=== PATIENT | male | born 1950 | race Caucasian/White ===

== ENCOUNTER 2020-10-23 07:14 | Day surgery (SDC) | payer MEDICARE, SELFPAY ==
[2020-10-20 08:26] VITALS: BMI 25.8
[2020-10-23] VITALS (7 sets, daily range): BP systolic 80–147; BP diastolic 48–98; PULSE 60–74; RESP 18; TEMP 36.1–36.6; O2SAT 95–99
--- NOTE | 2020-10-23 08:01 | HMH.ANESCL ---
[facility] Anesthesia Checklist - Patient Identification Patient Identification: Arm Band - Structural Data Admitted From: Home Planned Operative Procedure/s: colonoscopy Consent for Planned Operative Procedure(s) Verified: Yes Verified Documents: Surgical Consent, History and Physical - NPO Status Verified Time NPO: 00:00 - Additional verifications Anesthesia Reactions: No - Airway Assessment C-Spine Mobility Assessed: Yes (mp2) TMJ Mobility Assessed: Yes Dentition: Good Dentition - Neurological Assessment Level of Consciousness: Awake, Alert - Anesthesia Plan Anesthesia Risk discussed: Yes Anesthesia Plan: Verified ASA Class: III Anesthesia Type: MAC [facility] History I have reviewed the patient's past medical history: Yes Medical History: Reports:: Cerebrovascular Accident, Gastroesophageal Reflux Disease(GERD), Hypertension Denies:: Cancer, Diabetes Mellitus Type 1, Diabetes Mellitus Type 2, Internal Pacemaker, MRSA, Seizures *Have you ever received a pneumonia vaccine?: Yes *Have you received a flu vaccine this season?: Yes Other Medical History: Reports: Hypothyroidism, Liver Disease Anesthesia experience/problems:: nac Other Surgeries: Yes: Other. No: Pacemaker Amputation: No Fractures: No - *Social History Smoking Status: Never smoker Alcohol Intake: never Substance Use Type: denies use *Occupational Status:: employed Housing: house Household Members: spouse *Travel in the last 8 weeks: None Family Hx:: No significant family history
--- NOTE | 2020-10-23 08:09 | P.PCN_ITS ---
[facility] Procedure Note Procedure Note:: Colonoscopy Procedure Report: Colonoscopy with cold snare polypectomy Endoscopist: Joe Tidwell II, MD Referring physician: Elder Estrella MD Date of Procedure: October 23, 2020 Equipment: Olympus 190 variable stiffness pediatric colonoscope Sedation: MAC sedation Indication: Mr. Cornejo is a 70-year-old gentleman who is here for follow-up screening/surveillance colonoscopy. The patient did have a colonoscopy approximately 10 years ago (in [place]). He reports no abdominal pain, weight loss, change in his bowel habits or rectal bleeding. He reports no family history of colon cancer. Procedure: Prior to the procedure, a history and physical exam was performed, and patient's medications and allergies were reviewed. The risks, benefits and alternatives of the sedation and procedure were discussed with the patient. All questions were answered and informed consent was obtained. The patient was brought to the procedure room. Patient identification and proposed procedure were verified by the physician and the nurse. The patient was placed in a left lateral decubitus position and the scope was passed under direct vision. Throughout the procedure, the patient's blood pressure, pulse, and oxygen saturations were monitored continuously. The colonoscopy was accomplished without difficulty. The patient tolerated the procedure well. Findings: On digital rectal examination there was normal rectal tone. There were no external hemorrhoids. The prostate was 2-3+, mildly firm more so right lobe over left without nodules. The colonoscope was introduced through the anal canal to the rectum and advanced to the cecum. The ileocecal valve and appendiceal orifice were identified. The scope was advanced a short distance into the ileum which appeared grossly normal. The scope was then withdrawn into the colon. There were 2 colon polyps (cecum x1 (4 mm) and ascending x1 (4 mm)) which were both removed via cold snare polypectomy. The remaining cecum, ascending and transverse colon and mucosa were grossly normal. There were scattered diverticuli throughout the descending and sigmoid colon (LEFT colon). The rectum itself was normal. Upon retroflexion within the rectum there were grade 2 internal hemorrhoids. The preparation was good throughout with Hoyt Preparation Score of 8 out of 9. The cecal time was 12 min. Impression: 1. Colonic polyps x2 2. Mild left-sided diverticulosis 3. Grade 2 internal hemorrhoids Plan: I will follow up the polyp histology. If the polyps are adenomatous, I would consider repeat surveillance colonoscopy again in 7 years. Certainly this will be based upon his good health and desire to continue surveillance. I would encourage bulk fiber supplementation on a maintenance basis.
[2020-10-23 09:37] LABS: Chloride 101 mmol/L (98-107); Potassium 3.8 mmoL/L (3.5-5.1); Sodium 135 mmol/L (136-145)
[2020-10-23 09:39] LABS: Alanine Aminotransferase 32 U/L (12-78); Alkaline Phosphatase 76 U/L (38-126); Aspartate Amino Transferase 37 U/L (17-59); Bilirubin,Total 0.9 mg/dl (0.2-1.3); Blood Urea Nitrogen 7 mg/dl (9-20); Creatinine Clearance Estimated 76 mL/min (50-200); Estimated Glomerular Filt Rate 111 ml/min (>60); GFR (African American) 135 ML/MIN (>60)
[2020-10-23 09:40] LABS: Albumin Level 3.1 g/dl (3.5-5.0); Albumin/Globulin Ratio 1.2 (1.1-1.8); Anion Gap 8.8 mEq/L (5-15); Calcium 8.2 mg/dl (8.4-10.2); Carbon Dioxide 29 mmol/L (22.0-30.0); Globulin 2.5 g/dL (1.3-3.2); Glucose 129 mg/dl (74-100); Iron 121 ug/dL (49-181); Prothrombin Time 12.9 seconds (10.1-12.5); Total Protein,Serum 5.6 g/dl (6.3-8.2)
[2020-10-23 09:41] LABS: Ammonia < 9 umol/L (9-30)
[2020-10-23 09:49] LABS: Total Iron Binding Capacity 306 ug/dL (261-462)
[2020-10-23 10:17] LABS: Ferritin 87.2 ng/ml (17.9-464)
[2020-10-25 00:05] LABS: Actin (Smooth Muscle) Antibody 9 Units (0-19); Mitochondrial (M2) Antibody <20.0 Units (0.0-20.0)
[2020-10-25 17:23] LABS: Anti-Centromere B Antibodies >8.0 AI (0.0-0.9); Anti-DNA (DS) Ab Qn 5 IU/mL (0-9); Anti-Jo-1 <0.2 AI (0.0-0.9); Anti-Smith Antibody <0.2 AI (0.0-0.9); Antiscleroderma-70 Antibodies <0.2 AI (0.0-0.9); RNP Antibodies <0.2 AI (0.0-0.9); Sjogren's Anti-SS-A <0.2 AI (0.0-0.9); Sjogren's Anti-SS-B <0.2 AI (0.0-0.9)
[2020-10-26 14:15] LABS: Angiotensin Converting Enzyme 62 U/L (14-82)
[2020-10-26 15:45] LABS: Antichromatin Antibodies <0.2 AI (0.0-0.9)
[2020-10-26 17:09] LABS: AFP, Tumor Marker 2.7 ng/mL (0.0-8.3)
[2020-10-27 03:43] LABS: ALT (SGPT) P5P 29 IU/L (0-55); AST (SGOT) P5P 30 IU/L (0-40); Alpha 2-Macroglobulins, Qn 267 mg/dL (110-276); Apolipoprotein A-1 107 mg/dL (101-178); Bilirubin, Total 0.6 mg/dL (0.0-1.2); Cholesterol, Total 147 mg/dL (100-199); Fibrosis Score 0.89 (0.00-0.21); GGT 59 IU/L (0-65); Glucose 131 mg/dL (65-99); Haptoglobin 15 mg/dL (34-355); NASH Score 0.25 (0.25); Steatosis Score 0.53 (0.00-0.30); Triglycerides 87 mg/dL (0-149)
[2020-10-27 05:15] LABS: Fibrosis Score 0.89 (0.00-0.21); Necroinflammat Activity Grade A0-A1 (.); Necroinflammat Activity Score 0.28 (0.00-0.17)
== END 2020-10-23 09:38 | disposition home or self-care (01) ==
PROVIDERS: PCP Family Medicine; Visit Provider Internal Medicine Gastroenterology
PROC: 0DJD8ZZ Inspection of Lower Intestinal Tract, Via Natural or Artificial Opening Endoscopic (ICD-10-PCS; CPT 45378; principal; 2020-10-23 08:00)
DX: Z12.11 Encounter for screening for malignant neoplasm of colon (principal); K63.5 Polyp of colon; K57.30 Diverticulosis of large intestine without perforation or abscess without bleeding; K64.1 Second degree hemorrhoids; I10 Essential (primary) hypertension; K21.9 Gastro-esophageal reflux disease without esophagitis; Z86.73 Personal history of transient ischemic attack (TIA), and cerebral infarction without residual deficits; Z79.82 Long term (current) use of aspirin; Z79.899 Other long term (current) drug therapy
CPT/HCPCS: 45385; 36415; 80053; 81596; 82105; 82140; 82164; 82728; 83540; 83550; 85610; 86225; 86235; 86255; 86256; 88305

== ENCOUNTER → 2021-02-01 16:40 | Outpatient (CLI) | payer MEDICARE, SELFPAY | PROVIDERS: Visit Provider Nurse Practitioner | DX: U07.1 COVID-19 (principal) | CPT/HCPCS: C9803; U0003; U0005 ==

== ENCOUNTER → 2021-02-02 19:42 | Outpatient (CLI) | payer MEDICARE, SELFPAY | PROVIDERS: Visit Provider Nurse Practitioner Family | DX: Z20.822 Contact with and (suspected) exposure to COVID-19 (principal) | CPT/HCPCS: C9803; U0003; U0005 ==

== ENCOUNTER 2023-01-06 17:57 | Emergency (ER) | payer MEDICARE, SELFPAY ==
[2023-01-06] VITALS (8 sets, daily range): BP systolic 142–161; BP diastolic 88–100; PULSE 65–82; RESP 18; TEMP 36.7; O2SAT 97–100; BMI 19.2
--- OUTSIDE RECORDS SUMMARY | 2023-01-06 18:19 | XMS_ITS | Continuity of Care Document ---
Author Name Unknown Organization [facility] Address [address] [place] [address] Phone Care Team Providers Care Mirror Painter Name Role Phone No Information Unavailable Unavailable Advance Directives Directive Yes / No Effective Date File Name No Information Encounters Encounter Description Practice Location Reason(s) For Visit Diagnoses Date Provider Providers Copied on Encounter [facility], [address] [place] [address], [id number], [place] tel:[phone] No Information 0 [phone] No Information Family History Family Member Type Diagnosis Age At Onset No Information Payers Payer name Insurance type Covered constitution party ID Authoriza tion(s) No Information Social History Type Description Quantity Date Captured Comments Sex Male Smoking Status No Information Chief Complaint And Reason For Visit No Information Reason For Referral Reason For Referral No Information History Of Present Illness Encounter Date Complaint History Of Prese nt Illness No Information Functional Status Date Functional Assessmen t No Information Instructions Date Instruc
--- OUTSIDE RECORDS SUMMARY | 2023-01-06 18:20 | XMS_ITS | Continuity of Care Document ---
Author Name Unknown Address [address] [place], [place] [id number] Organization [facility] Phone Care Team Providers Care Reinforcing Steel Placer Name Role Phone MIGUEL GONZALES Unavailable MIGUEL GONZALES Primary Attending VERONICA TORRES III Primary Care MIGUEL GONZALES Admitting RESULTS Patient: ALEJO LARSON Date of : 1950 1 LABORATORY RESULTS ORDER 200: CBC AUTO W DIFF ( LOINC: 35113-5) ORDER DATE: October 31, 2022 1:57:00 PM UTC Specimen Source: Whole Blood PERFORMING LAB: [address] [id number] Result Comment: Final Result Date: October 31, 2022 2:06:00 PM [place] (TECH: [employer]) LOINC TEST FLAG RESULT REFERENCE RANGE UPDA LAURIE BY 6690-2 Leukocytes [#/volume] in Blood by Automated count N 6.4 10^3/uL 4.5 10^3/uL - 11.5 10^3/uL October 31, 2022 2:06:00 PM UTC (TECH: [employer]) 789-8 Erythrocytes [#/volume] in Blood by Automated count L 3.20 10^6/uL 4.25 10^6/uL - 5.57 10^6/uL October 31, 2022 2:06:00 PM UTC (TECH: [employer]) 498-7 Hemoglobin [Mass/volume] in Blood L 10.2 g/dL 13.5 g/dL - 17.2 g/dL October 31, 2022 2:06:00 PM UTC (TECH: [employer]) 58516-8 Hematocrit [Volume Fraction] of Blood L 31.0 % 42.0 % - 52.0 % October 31, 2022 2:06:00 PM [facility] (TECH: [facility]) 787-2 Eryt
--- OUTSIDE RECORDS SUMMARY | 2023-01-06 18:20 | XMS_ITS | Continuity of Care Document ---
Author Name Unknown Address [address] [place] [id number] Organization [facility] Phone Care Team Providers Care Clinical Research Physician Name Role Phone UNDEFINED, PROVIDER Admitting Unavailable VERONICA TORRES III Primary Care UNDEFINED, PROVIDER Unavailable Unavailable UNDEFINED, PROVIDER Primary Attending Unavailabl e RESULTS Patient: ALEJO LARSON Date of : 1950 1 LABORATORY RESULTS ORDER 200: CBC AUTO W DIFF ( LOINC: 44317-5) ORDER DATE: October 31, 2022 1:57:00 PM UTC Specimen Source: Whole Blood PERFORMING LAB: [address] [id number] Result Comment: Final Result Date: October 31, 2022 2:06:00 PM UTC (TECH: [facility]) LOINC TEST FLAG RESULT REFERENCE RANGE UPDA LAURIE BY 6690-2 Leukocytes [#/volume] in Blood by Automated count N 6.4 10^3/uL 4.5 10^3/uL - 11.5 10^3/uL October 31, 2022 2:06:00 PM UTC (TECH: [facility]) 789-8 Erythrocytes [#/volume] in Blood by Automated count L 3.20 10^6/uL 4.25 10^6/uL - 5.57 10^6/uL October 31, 2022 2:06:00 PM UTC (TECH: [facility]) 718-7 Hemoglobin [Mass/volume] in Blood L 10.2 g/dL 13.5 g/dL - 17.2 g/dL October 31, 2022 2:06:00 PM UTC (TECH: [facility]) 56499-2 Hematocrit [Volume Fraction] of Blood L 31.0 % 42.0 % - 52.0 % October 31, 2022 2:06:00 PM UTC (TECH: [facility]) 787-2 Erythrocyte mean corpuscular volume [Entitic volume] by Automated count H
--- OUTSIDE RECORDS SUMMARY | 2023-01-06 18:20 | XMS_ITS | Continuity of Care Document ---
Author Name Unknown Address [address] [place], [place] [id number] [facility] Care Team Providers Care Mine Analyst Name Role Phone UNDEFINED, PROVIDER Admitting Unavailable VERONICA TORRES III Primary Care UNDEFINED, PROVIDER Unavailable Unavailable UNDEFINED, PROVIDER Primary Attending Unavailabl e TREATMENT PLAN DISCHARGE MEDICATIONS Status RXNORM Medication Dose Route Frequency Dates Comments U pdated By Patient discharge medication information is not available. PATIENT OPEN ORDERS Code System Description Frequency Occurrences Priority [place] [address] [facility] Chest X-ray PA and lateral ONE TIME 0 Routine November 14, 2022 1:41:00 PM [facility] BRIAN Askew III [id number] on November 14, 2022 2:17:00 PM [facility] SCHEDULED PROCEDURES Code System Description Status Scheduled Date Upd ated By Patient scheduled procedure information is not available. MEDICATIONS HOME MEDICATIONS Status RXNORM Medication Dose Route Frequency Dates Comments R eported By Updated By Drug Treatment Unknown DISCHARGE MEDICATIONS Status RXNORM Medication Dose Route Frequency Dates Comments Physic arnav Updated By No Discharge Medication Info rmation Available INPATIENT MEDICATIONS Status RXNORM Medication Dose Route Frequency Rate Quantity Dates Comments Physician
--- OUTSIDE RECORDS SUMMARY | 2023-01-06 18:20 | XMS_ITS | Continuity of Care Document ---
Author Name Unknown Address [address] [place], [place] [id number] Organization [facility] Phone Care Team Providers Care Topstitcher Zigzag Name Role Phone MIGUEL GONZALES Primary Attending [phone] VERONICA TORRES III Primary Care MIGUEL GONZALES Admitting MIGUEL GONZALES Unavailable RESULTS Patient: ALEJO LARSON Date of : 1950 1 LABORATORY RESULTS ORDER 200: CBC AUTO W DIFF ( LOINC: 82248-0) ORDER DATE: December 05, 2022 2:08:00 PM UTC Specimen Source: Whole Blood PERFORMING LAB: [address] [id number] Result Comment: Final Result Date: December 05, 2022 3:28:00 PM UTC (TECH: [facility]) LOINC TEST FLAG RESULT REFERENCE RANGE UPDA LAURIE BY 6690-2 Leukocytes [#/volume] in Blood by Automated count N 8.4 10^3/uL 4.5 10^3/uL - 11.5 10^3/uL December 05, 2022 3:28:00 PM UTC (TECH: [facility]) 789-8 Erythrocytes [#/volume] in Blood by Automated count L 3.51 10^6/uL 4.25 10^6/uL - 5.57 10^6/uL December 05, 2022 3:28:00 PM UTC (TECH: [facility]) 768-7 Hemoglobin [Mass/volume] in Blood L 10.9 g/dL 13.5 g/dL - 17.2 g/dL December 05, 2022 3:28:00 PM UTC (TECH: [facility]) 30642-8 Hematocrit [Volume Fraction] of Blood L 33.3 % 42.0 % - 52.0 % December 05, 2022 3:28:00 PM [facility] (TECH: [facility] 787-2 Eryt
--- OUTSIDE RECORDS SUMMARY | 2023-01-06 18:20 | XMS_ITS | Continuity of Care Document ---
Author Name Unknown Address [address] [place], [place] [id number] Organization [facility] Phone Care Team Providers Care Pharmacy Helper Name Role Phone UNDEFINED, PROVIDER Admitting Unavailable VERONICA TORRES III Primary Care UNDEFINED, PROVIDER Unavailable Unavailable UNDEFINED, PROVIDER Primary Attending Unavailabl e RESULTS Patient: ALEJO LARSON Date of : 1950 1 LABORATORY RESULTS Information is not available LABORATORY NARRATIVE RESULTS Information is not available RADIOLOGY RESULTS ORDER 100: CHEST PA AND LAT (LOINC: 19215-3) ORDER DATE: November 14, 2022 1:41:[address] [facility] PATHOLOGY NARRATIVE RESULTS Information is not available MICROBIOLOGY RESULTS No Micro Labs/Results Exist for Patient BLOOD ADMIN RESULTS Information is not available MEDICATIONS HOME MEDICATIONS Status RXNORM Medication Dose Route Frequency Dates Comments R eported By Updated By Drug Treatment Unknown DISCHARGE MEDICATIONS Status RXNORM Medication Dose Route Frequency Dates Comments Physic arnav Updated By No Discharge Medication Info rmation Available INPATI
--- OUTSIDE RECORDS SUMMARY | 2023-01-06 18:20 | XMS_ITS | Continuity of Care Document ---
Author Name Unknown Address [address] [place], [place] [id number] Organization [facility] Phone Care Team Providers Care Supervisor Heat Treating Name Role Phone MIGUEL GONZALES Primary Attending [phone] VERONICA TORRES III Primary Care MIGUEL GONZALES Admitting MIGUEL GONZALES Unavailable RESULTS Patient: ALEJO LARSON Date of : 1950 1 LABORATORY RESULTS ORDER 200: CBC AUTO W DIFF ( LOINC: 30165-7) ORDER DATE: December 05, 2022 2:08:00 PM UTC Specimen Source: Whole Blood PERFORMING LAB: [address] [id number] Result Comment: Final Result Date: December 05, [...] 05, 2022 3:28:00 PM UTC (TECH: [facility]) 948-7 Hemoglobin [Mass/volume] in Blood L 10.9 g/dL 13.5 g/dL - 17.2 g/dL December 05, 2022 3:28:00 PM UTC (TECH: [facility]) 15789-8 Hematocrit [Volume Fraction] of Blood L 33.3 % 42.0 % - 52.0 % December 05, 2022 3:28:00 PM [facility] (TECH: [facility] 787-2 Eryt
--- OUTSIDE RECORDS SUMMARY | 2023-01-06 18:21 | XMS_ITS | Continuity of Care Document ---
Author Name Unknown Address [address] [place], [place] [id number] Organization [facility] Phone Care Team Providers Care Public Health Policy Analyst Name Role Phone MIGUEL GONZALES Unavailable MIGUEL GONZALES Primary Attending VERONICA TORRES III Primary Care MIGUEL GONZALES Admitting RESULTS Patient: ALEJO LARSON Date of : 1950 1 LABORATORY RESULTS ORDER 200: CBC AUTO W DIFF ( LOINC: 66985-3) ORDER DATE: October 31, 2022 1:57:00 PM UTC Specimen Source: Whole Blood PERFORMING LAB: [address] [id number] Result Comment: Final Result Date: October 31, 2022 2:06:00 PM [place] (TECH: [employer]) LOINC TEST FLAG RESULT REFERENCE RANGE UPDA LAURIE BY 6690-2 Leukocytes [#/volume] in Blood by Automated count N 6.4 10^3/uL 4.5 10^3/uL - 11.5 10^3/uL October 31, 2022 2:06:00 PM UTC (TECH: [employer]) 789-8 Erythrocytes [#/volume] in Blood by Automated count L 3.20 10^6/uL 4.25 10^6/uL - 5.57 10^6/uL October 31, 2022 2:06:00 PM UTC (TECH: [employer]) 258-7 Hemoglobin [Mass/volume] in Blood L 10.2 g/dL 13.5 g/dL - 17.2 g/dL October 31, 2022 2:06:00 PM UTC (TECH: [employer]) 09098-2 Hematocrit [Volume Fraction] of Blood L 31.0 % 42.0 % - 52.0 % October 31, 2022 2:06:00 PM [facility] (TECH: [facility]) 787-2 Eryt
[2023-01-06 18:24] LABS: Basophils % 0.4 % (0.1-2.0); Eosinophils # 0.9 K/mm3 (0.0-0.4); Eosinophils % 12.4 % (0.1-12.0); Lymphocytes # 2.2 K/mm3 (0.7-4.5); Lymphocytes % 30.1 % (10-50); Mean Corpuscular HGB Conc 33.4 g/dL (31.8-35.4); Mean Corpuscular Hemoglobin 32.3 pg (27.0-31.2); Mean Corpuscular Volume 96.6 fl (80-94); Mean Platelet Volume 8.2 fl (7.4-10.4); Monocytes # 0.6 K/mm3 (0.1-1.0); Monocytes % 7.8 % (1.7-9.3); Neutrophils # 3.6 K/mm3 (1.8-7.8); Neutrophils % 49.3 % (37.0-80.0); Platelet Count 324 K/mm3 (142-424); Red Blood Count 3.42 M/mm3 (4.60-6.20); Red Cell Distribution Width 14.4 % (11.5-17.5); White Blood Count 7.4 K/mm3 (4.8-10.8)
--- NOTE | 2023-01-06 18:28 | HMH.EDGENADL ---
Discharge Plan Disposition Patient Disposition: Home, Self-Care Prescriptions Prescriptions: New Lokelma 10 gram powder in packet 10 g PO DAILY Qty: 30 0RF No Action levothyroxine 137 MCG tablet 137 mcg PO DAILY prednisone 5 MG tablet 5 mg PO DAILY clopidogrel 75 MG tablet 75 mg PO DAILY pantoprazole 40 MG tablet,delayed release (DR/EC) 40 mg PO DAILY aspirin 81 MG tablet,chewable 81 mg PO DAILY hydrochlorothiazide 25 MG tablet 25 mg PO DAILY losartan 100 MG tablet 100 mg PO DAILY cholestyramine (with sugar) 378 GM powder 378 gm PO DAILY Referrals Follow up/Referrals: Leo Estrella MD [Primary Care Provider] - See instructions Activity Restrictions/Add. Instructions Additional Instructions/Restrictions: Take 10 g of Lokelma daily. Follow-up with your transplant team. Call your family doctor to establish care for this visit to the emergency department and schedule follow-up within 48 hours to ensure improvement. If you have any worsening of your condition or any other concerning signs or symptoms, return to the emergency department or your primary care doctor for further evaluation. Clinical Impressions Clinical Impression: Acute hyperkalemia Discharge ED Provider: Eric Streeter General Adult HPI General Chief complaint: Recheck/Abnormal Lab/Rx Stated complaint: sent by [place]-potassium over 6 Time Seen by Provider: 01/06/23 18:03 Mode of Arrival: Wheelchair Source of Information: Patient Limitations: No Limitations Description of Symptoms (Recalled from ER Triage Doc. by RN): pt had a liver transplant in June with [facility], had routine blood work done yesterday and they called him today to let him know his potassium was elevated and to go to local hospital to have labs recheck. History of Present Illness HPI narrative: 72-year-old male history of recent liver transplant presenting with abnormal labs. Patient states that he got labs drawn 1 day ago. Was called and told that 1 number was 5.9 a couple days ago, over 6 today. Was told to come to the nearest ER for insulin and other medications to lower it. Patient has no symptoms, fevers, chills, yellowing of the skin or eyes, nausea or vomiting, chest pain or shortness of breath, dysuria hematuria, diarrhea constipation, and has been taking all his meds as prescribed. Related Data Home Medications Medication Instructions Recorded Confirmed aspirin 81 mg chewable tablet 81 mg PO DAILY Blood thinner 10/20/20 10/23/20 cholestyramine (with sugar) 4 gram 378 gm PO DAILY liver 10/20/20 10/23/20 oral powder clopidogrel 75 mg tablet 75 mg PO DAILY Blood thinner 10/20/20 10/23/20 hydrochlorothiazide 25 mg tablet 25 mg PO DAILY bp 10/20/20 10/23/20 levothyroxine 137 mcg tablet 137 mcg PO DAILY thyroid 10/20/20 10/23/20 losartan 100 mg tablet 100 mg PO DAILY bp 10/20/20 10/23/20 pantoprazole 40 mg tablet,delayed 40 mg PO DAILY GERD 10/20/20 10/23/20 release prednisone 5 mg tablet 5 mg PO DAILY autoimmune 10/20/20 10/23/20 Previous Rx's Medication Instructions Recorded sodium zirconium cyclosilicate 10 10 g PO DAILY #30 ea 01/06/23 gram oral powder packet (Lokelma) Allergies Allergy/AdvReac Type Severity Reaction Status Date / Time No Known Allergies Allergy Verified 02/02/21 17:48 [facility] Disclaimer: The information contained in this section may have been updated after the patient was seen, as this information can be updated by other users. Social History Smoking Status: Never smoker alcohol intake: never substance use type: denies use current occupational status: employed Travel in the last 8 weeks: None household members: spouse housing: house current occupational exposures/hazards: No caffeine: Yes ROS Obtained: Yes All systems reviewed & no additional complaints except as documented Physical Exam General General appearance: alert
[2023-01-06 18:34] LABS: INR 1.01 (0.9-1.1); Prothrombin Time 10.9 seconds (10.1-12.5)
[2023-01-06 18:41] LABS: Alanine Aminotransferase 209 U/L (12-78); Albumin Level 4.2 g/dl (3.5-5.0); Albumin/Globulin Ratio 1.4 (1.1-1.8); Alkaline Phosphatase 587 U/L (38-126); Anion Gap 15.2 mEq/L (5-15); Aspartate Amino Transferase 285 U/L (17-59); Bilirubin,Total 1.2 mg/dl (0.2-1.3); Blood Urea Nitrogen 32 mg/dl (9-20); Calcium 9.5 mg/dl (8.4-10.2); Carbon Dioxide 22 mmol/L (22.0-30.0); Chloride 98 mmol/L (98-107); Creatinine Clearance Estimated 50 mL/min (50-200); Estimated Glomerular Filt Rate 66 ml/min (>60); GFR (African American) 79 ML/MIN (>60); Globulin 3.1 g/dL (1.3-3.2); Glucose 99 mg/dl (74-100); Sodium 129 mmol/L (136-145); Total Protein,Serum 7.3 g/dl (6.3-8.2)
[2023-01-06 18:45] LABS: Potassium 6.2 mmoL/L (3.5-5.1)
--- NOTE | 2023-01-06 18:45 | PC.NURSE ---
lab called with critical result of potassium 6.2, ER made aware, pt on the monitor and storage bin tender
--- NOTE | 2023-01-06 19:09 | PC.NURSE ---
Rounded on patient, no concerns at this time.
[2023-01-06 20:46] LABS: Potassium 5.5 mmoL/L (3.5-5.1)
--- NOTE | 2023-01-06 21:42 | PC.NURSE ---
rechecked BS. BS now 90.
[2023-01-06 21:49] LABS: POC Glucose,Bedside 60 (70-110)
[2023-01-06 21:49] LABS: POC Glucose,Bedside 70 (70-110)
[2023-01-06 21:49] LABS: POC Glucose,Bedside 90 (70-110)
== END 2023-01-06 22:01 | disposition home or self-care (01) ==
PROVIDERS: Emergency Provider Emergency Medicine; PCP Family Medicine
DX: E87.5 Hyperkalemia (principal); E87.1 Hypo-osmolality and hyponatremia; Z94.4 Liver transplant status
CPT/HCPCS: 36415; 80053; 82962; 84132; 85025; 85610; 96374; 96375; 99284

== ENCOUNTER 2023-01-30 09:51 | Emergency (ER) | payer MEDICARE, SELFPAY ==
[2023-01-30] VITALS (16 sets, daily range): BP systolic 96–159; BP diastolic 54–96; PULSE 70–85; RESP 16–20; TEMP 36.7; O2SAT 92–99
--- OUTSIDE RECORDS SUMMARY | 2023-01-30 09:55 | XMS_ITS | Continuity of Care Document ---
Author Name Unknown Organization [facility] Address [address] [place] [address] Phone Care Team Providers Care Quarry Supervisor Open Pit Name Role Phone No Information Unavailable Unavailable Advance Directives Directive Yes / No Effective Date File Name No Information Encounters Encounter Description Practice Location Reason(s) For Visit Diagnoses Date Provider Providers Copied on Encounter [facility], [address] [place] [address], [id number], [place] tel:[phone] No Information 0 [id number] No Information Family History Family Member Type Diagnosis Age At Onset No Information Payers Payer name Insurance type Covered democrat ID Authoriza tion(s) No Information Social History Type Description Quantity Date Captured Comments Sex Male Smoking Status No Information Chief Complaint And Reason For Visit No Information Reason For Referral Reason For Referral No Information History Of Present Illness Encounter Date Complaint History Of Prese nt Illness No Information Functional Status Date Functional Assessmen t No Information Instructions Date Instru
--- NOTE | 2023-01-30 09:58 | XR_ITS ---
FINAL REPORT CLINICAL HISTORY: fall, L shoulder pain FINDINGS: LEFT SHOULDER 3 views of the left shoulder were obtained. There is no acute fracture or dislocation. Visualized joint spaces are normally aligned. There are mild hypertrophic changes of the AC joint. Soft tissues are unremarkable. IMPRESSION: No acute bony abnormality. Reviewed, Interpreted and Dictated by Angel Bailey MD Transcribed by Aniya Ponce Authenticated and [facility]
--- NOTE | 2023-01-30 09:58 | XR_ITS ---
FINAL REPORT CLINICAL HISTORY: fall, L sera pain FINDINGS: LEFT FEMUR AP and lateral views of the left femur were obtained. There is a subtle, nondisplaced subcapital fracture. There is no dislocation. Soft tissue is unremarkable. IMPRESSION: Subtle, nondisplaced subcapital fracture. Reviewed, Interpreted and Dictated by Angel Bailey MD Transcribed by Aniya Ponce Authenticated and [facility]
--- NOTE | 2023-01-30 09:58 | XR_ITS ---
FINAL REPORT CLINICAL HISTORY: fall, L shoulder pain FINDINGS: LEFT HUMERUS 2 views of the left humerus were obtained. There is no acute fracture or dislocation. Visualized joint spaces are normally aligned. Soft tissues are unremarkable. IMPRESSION: No acute bony abnormality. Reviewed, Interpreted and Dictated by Angel Bailey MD Transcribed by Aniya Ponce Authenticated and [facility]
--- NOTE | 2023-01-30 09:58 | XR_ITS ---
FINAL REPORT CLINICAL HISTORY: fall, L sera pain FINDINGS: LEFT HIP AP and lateral views of the left hip were obtained. There is a subtle, nondisplaced subcapital fracture. There is no dislocation. Soft tissue is unremarkable. IMPRESSION: Subtle, nondisplaced subcapital fracture. Reviewed, Interpreted and Dictated by Angel Bailey MD Transcribed by Aniya Ponce Authenticated and [facility]
--- NOTE | 2023-01-30 10:21 | PC.NURSE ---
rad at for portable xrays
--- NOTE | 2023-01-30 10:23 | HMH.EDGENADL ---
Discharge Plan Disposition Patient Disposition: Xfer Short-Term Hosp Prescriptions Prescriptions: No Action levothyroxine 137 MCG tablet 137 mcg PO DAILY prednisone 5 MG tablet 5 mg PO DAILY clopidogrel 75 MG tablet 75 mg PO DAILY pantoprazole 40 MG tablet,delayed release (DR/EC) 40 mg PO DAILY aspirin 81 MG tablet,chewable 81 mg PO DAILY hydrochlorothiazide 25 MG tablet 25 mg PO DAILY losartan 100 MG tablet 100 mg PO DAILY cholestyramine (with sugar) 378 GM powder 378 gm PO DAILY Lokelma 10 gram powder in packet 10 g PO DAILY Qty: 30 0RF Referrals Follow up/Referrals: Leo Estrella MD [Primary Care Provider] - See instructions Clinical Impressions Clinical Impression: Closed left femoral fracture, Fall Discharge ED Provider: Eric Streeter General Adult HPI General Chief complaint: Fall Stated complaint: fall Time Seen by Provider: 01/30/23 09:58 Mode of Arrival: EMS Source of Information: Patient Limitations: No Limitations Description of Symptoms (Recalled from ER Triage Doc. by RN): Patient states he was trying to get his weight when he fell backwards onto his carpeted living room floor landing on his left hip and left shoulder. Patient does complain of left hip and shoulder pain at a 2 out of 10 on the pain scale. Denies LOC. History of Present Illness HPI narrative: 72-year-old male with history of recent liver transplant following with [facility] presenting with fall. Patient states that he was weighing himself today because he feels as if he has been bloated, distended, holding onto fluid. 6 pound weight gain in 3 days. Called [facility], recommended they follow his weights and because he is been gaining weight, he came to the emergency department for further evaluation, however while weighing himself, he tripped on the scale, landed on his left shoulder and hip, and is having pain in his groin. Able to bear weight with significant pain, but states he has pain with this leg at baseline. Did not hit his head, no other trauma sustained. Related Data Home Medications Medication Instructions Recorded Confirmed aspirin 81 mg chewable tablet 81 mg PO DAILY Blood thinner 10/20/20 10/23/20 cholestyramine (with sugar) 4 gram 378 gm PO DAILY liver 10/20/20 10/23/20 oral powder clopidogrel 75 mg tablet 75 mg PO DAILY Blood thinner 10/20/20 10/23/20 hydrochlorothiazide 25 mg tablet 25 mg PO DAILY bp 10/20/20 10/23/20 levothyroxine 137 mcg tablet 137 mcg PO DAILY thyroid 10/20/20 10/23/20 losartan 100 mg tablet 100 mg PO DAILY bp 10/20/20 10/23/20 pantoprazole 40 mg tablet,delayed 40 mg PO DAILY GERD 10/20/20 10/23/20 release prednisone 5 mg tablet 5 mg PO DAILY autoimmune 10/20/20 10/23/20 Previous Rx's Medication Instructions Recorded sodium zirconium cyclosilicate 10 10 g PO DAILY #30 ea 01/06/23 gram oral powder packet (Lokelma) Allergies Allergy/AdvReac Type Severity Reaction Status Date / Time No Known Allergies Allergy Verified 02/02/21 17:48 [facility] Disclaimer: The information contained in this section may have been updated after the patient was seen, as this information can be updated by other users. Social History Smoking Status: Never smoker alcohol intake: never substance use type: denies use current occupational status: employed Travel in the last 8 weeks: None household members: spouse housing: house current occupational exposures/hazards: No caffeine: Yes ROS Obtained: Yes All systems reviewed & no additional complaints except as documented Physical Exam General General appearance: alert and in no apparent distress Head Head exam: atraumatic Eye Eye exam: Absent jaundice Respiratory Respiratory exam: Present normal lung sounds bilaterally; Absent respiratory distress Cardiovascular Cardiovascular exam: Present regular rate and normal rhyt
[2023-01-30 11:03] LABS: Basophils % 0.3 % (0.1-2.0); Eosinophils # 0.3 K/mm3 (0.0-0.4); Hematocrit 30.9 % (42.0-52.0); Lymphocytes # 1.7 K/mm3 (0.7-4.5); Lymphocytes % 25.3 % (10-50); Mean Corpuscular HGB Conc 32.5 g/dL (31.8-35.4); Mean Corpuscular Hemoglobin 30.7 pg (27.0-31.2); Mean Corpuscular Volume 94.6 fl (80-94); Mean Platelet Volume 8.7 fl (7.4-10.4); Monocytes # 0.5 K/mm3 (0.1-1.0); Monocytes % 6.9 % (1.7-9.3); Neutrophils # 4.4 K/mm3 (1.8-7.8); Neutrophils % 63.5 % (37.0-80.0); Platelet Count 299 K/mm3 (142-424); Red Blood Count 3.27 M/mm3 (4.60-6.20); White Blood Count 6.9 K/mm3 (4.8-10.8)
[2023-01-30 11:09] LABS: Chloride 101 mmol/L (98-107); Sodium 135 mmol/L (136-145)
[2023-01-30 11:10] LABS: Potassium 3.3 mmoL/L (3.5-5.1)
[2023-01-30 11:12] LABS: Alanine Aminotransferase 22 U/L (12-78); Albumin Level 3.6 g/dl (3.5-5.0); Alkaline Phosphatase 205 U/L (38-126); Aspartate Amino Transferase 31 U/L (17-59); Bilirubin,Total 0.7 mg/dl (0.2-1.3); Blood Urea Nitrogen 19 mg/dl (9-20); Creatinine Clearance Estimated 57 mL/min (50-200); Estimated Glomerular Filt Rate 73 ml/min (>60); GFR (African American) 89 ML/MIN (>60)
[2023-01-30 11:13] LABS: Albumin/Globulin Ratio 1.3 (1.1-1.8); Anion Gap 8.3 mEq/L (5-15); Calcium 8.4 mg/dl (8.4-10.2); Carbon Dioxide 29 mmol/L (22.0-30.0); Globulin 2.7 g/dL (1.3-3.2); Glucose 108 mg/dl (74-100); Total Protein,Serum 6.3 g/dl (6.3-8.2)
[2023-01-30 11:17] LABS: Prothrombin Time 11.8 seconds (10.1-12.5)
--- NOTE | 2023-01-30 11:59 | PC.NURSE ---
paged Dr Sood
--- NOTE | 2023-01-30 12:02 | PC.NURSE ---
Dr Sood called and is speaking with Dr Streeter now about this pt.
--- NOTE | 2023-01-30 12:43 | PC.NURSE ---
Dr Streeter speaking with MD
--- NOTE | 2023-01-30 13:21 | PC.NURSE ---
per dr. de la torre- waiting on transplant team at to call back prior to acceptance.
--- NOTE | 2023-01-30 13:42 | PC.NURSE ---
Dr Streeter speaking with [facility]
--- NOTE | 2023-01-30 13:48 | PC.NURSE ---
pt accepted to per will call back with bed assignment
--- NOTE | 2023-01-30 14:13 | PC.NURSE ---
[facility] called with Unit and bed assignment. Unit [id number] and Bed #[id number] Number to call [phone] Adelita also requested a call to transfer center with ETA for Patient. [phone]
--- NOTE | 2023-01-30 15:22 | PC.NURSE ---
Report called to Itzel at .
--- NOTE | 2023-01-30 15:37 | PC.NURSE ---
called [facility] for transport spoke to Donal Robles
== END 2023-01-30 17:50 | disposition short-term general hospital (02) ==
PROVIDERS: Emergency Provider Emergency Medicine; PCP Family Medicine
DX: S72.045A Nondisplaced fracture of base of neck of left femur, initial encounter for closed fracture (principal); Z94.4 Liver transplant status; W18.30XA Fall on same level, unspecified, initial encounter
CPT/HCPCS: 73030; 73060; 73502; 73552; 80053; 85025; 85610; 96374; 96375; 96376; 99285

== ENCOUNTER 2023-03-15 19:49 | Emergency (ER) | payer MEDICARE, SELFPAY ==
[2023-03-15 19:50] VITALS: BP 138/84; PULSE 101; RESP 18; TEMP 37.4; O2SAT 97; BMI 18.4
--- OUTSIDE RECORDS SUMMARY | 2023-03-15 20:00 | XMS_ITS | Continuity of Care Document ---
Author Name Unknown Organization [facility] Address [address] [place] [address] Phone Care Team Providers Care Publicity Director Name Role Phone No Information Unavailable Unavailable Advance Directives Directive Yes / No Effective Date File Name No Information Encounters Encounter Description Practice Location Reason(s) For Visit Diagnoses Date Provider Providers Copied on Encounter [facility], [address] [place] [address], [id number], [place] tel:[phone] No Information 0 3200 9 No Information Family History Family Member Type Diagnosis Age At Onset No Information Payers Payer name Insurance type Covered libertarian ID Authoriza tion(s) No Information Social History Type Description Quantity Date Captured Comments Sex Male Smoking Status No Information Chief Complaint And Reason For Visit No Information Reason For Referral Reason For Referral No Information History Of Present Illness Encounter Date Complaint History Of Prese nt Illness No Information Functional Status Date Functional Assessmen t No Information Instructions Date Instruction Additional Infor mation No Information Assessments Type Assessment Date No Information Patient Care Teams Name Effective Dates (start - stop) Status Members No Information
--- NOTE | 2023-03-15 20:01 | ECG_ITS ---
APPROVED REPORT Exam: Resting ECG HR:96 bpm ECG Measurements Heart Rate 96 AXES HI 146 P 54 QRSd 122 QRS 84 QT 401 T 51 QTc 454 Conclusion SINUS RHYTHM RIGHT BUNDLE BRANCH BLOCK [120+ ms QRS DURATION, UPRIGHT V1, 40+ ms S IN I/aVL/V4/V5/V6] ABNORMAL ECG UNCONFIRMED REPORT Electronically signed by : Harley Alfonso MD 03/17/2023 08:00:23
[2023-03-15 20:06] VITALS: BP 139/81; PULSE 100; O2SAT 95
--- NOTE | 2023-03-15 20:25 | XR_ITS ---
PROCEDURE INFORMATION: Exam: XR Chest Exam date and time: 03/15/2023 8:45 PM Age: 72 years old Clinical indication: Fever TECHNIQUE: Imaging protocol: Radiologic exam of the chest. Views: 1 view. COMPARISON: CR XR HUMERUS LT 01/30/2023 10:08 AM FINDINGS: Lungs: Hyperinflated lungs suggesting COPD. Mild right lower lung ground-glass density. Pleural spaces: Normal No pleural effusion. No pneumothorax. Heart/Mediastinum: Normal. No cardiomegaly. Vasculature: Tortuous atherosclerotic thoracic aorta. Bones/joints: Multiple old right rib fractures. Old right clavicle fracture. Osteopenia. IMPRESSION: Findings of COPD. Mild ground-glass density at the right lung base could be atelectasis or pneumonia.
[2023-03-15 20:30] VITALS: PULSE 94; O2SAT 97
[2023-03-15 20:35] LABS: Basophils % 0.2 % (0.1-2.0); Eosinophils # 0.1 K/mm3 (0.0-0.4); Eosinophils % 0.5 % (0.1-12.0); Hematocrit 32.9 % (42.0-52.0); Hemoglobin 10.7 g/dL (14.1-18.0); Lymphocytes # 1.7 K/mm3 (0.7-4.5); Lymphocytes % 15.4 % (10-50); Mean Corpuscular HGB Conc 32.5 g/dL (31.8-35.4); Mean Corpuscular Hemoglobin 30.2 pg (27.0-31.2); Mean Corpuscular Volume 92.8 fl (80-94); Mean Platelet Volume 8.3 fl (7.4-10.4); Monocytes # 0.5 K/mm3 (0.1-1.0); Monocytes % 4.8 % (1.7-9.3); Neutrophils # 8.5 K/mm3 (1.8-7.8); Neutrophils % 79.1 % (37.0-80.0); Platelet Count 386 K/mm3 (142-424); Red Blood Count 3.55 M/mm3 (4.60-6.20); Red Cell Distribution Width 14.6 % (11.5-17.5); White Blood Count 10.7 K/mm3 (4.8-10.8)
[2023-03-15 20:51] LABS: Lactic Acid 1.2 mmol/L (0.7-2.1)
--- NOTE | 2023-03-15 20:56 | HMH.EDGENADL ---
Discharge Plan Disposition Patient Disposition: Xfer Other Prescriptions Prescriptions: No Action levothyroxine 137 MCG tablet 200 mcg PO DAILY prednisone 5 MG tablet 5 mg PO DAILY clopidogrel 75 MG tablet 75 mg PO DAILY pantoprazole 40 MG tablet,delayed release (DR/EC) 40 mg PO DAILY aspirin 81 MG tablet,chewable 81 mg PO DAILY hydrochlorothiazide 25 MG tablet 25 mg PO DAILY losartan 100 MG tablet 100 mg PO DAILY cholestyramine (with sugar) 378 GM powder 378 gm PO DAILY furosemide 20 mg tablet 20 mg PO DAILY Patient Comments: TAKE 1 TABLET BY MOUTH ONCE DAILY voriconazole 50 mg tablet 50 mg PO DAILY Lokelma 10 gram powder in packet 10 g PO DAILY Qty: 30 0RF Referrals Follow up/Referrals: Leo Estrella MD [Primary Care Provider] - See instructions Clinical Impressions Clinical Impression: Sepsis, Liver transplant recipient, Immunosuppressed status, Generalized weakness, Cough, H/O urinary retention, Severe sepsis, Myocardial injury, Acute UTI, Heart failure Stand Alone Forms Stand Alone Forms: Transfer Record - ED Discharge ED Provider: Mandy Jose General Adult HPI General Chief complaint: Weakness Stated complaint: fever, weakness Time Seen by Provider: 03/15/23 20:43 Mode of Arrival: Wheelchair Source of Information: Patient and Spouse Limitations: No Limitations Description of Symptoms (Recalled from ER Triage Doc. by RN): pt c/o fever,cold chills, body aches, loss of appiette since last night. pt recieved liver transplant in June @ History of Present Illness HPI narrative: Is a 72-year-old male with a history of what he describes as a chronic hepatitis which was not a specific viral hepatitis that he dealt with chronically since the [place] and has been followed at [facility] for experimental regimens ultimately receiving a liver transplant in June of this year. He is immunosuppressed on cyclosporine also takes voriconazole for chronic aspergillosis. States that over the last 48 hours he has had profound fatigue weakness cough pain in the subscapular region on the right side difficulty urinating and a fever at home of 101.0. Related Data Home Medications Medication Instructions Recorded Confirmed aspirin 81 mg chewable tablet 81 mg PO DAILY Blood thinner 10/20/20 03/15/23 cholestyramine (with sugar) 4 gram 378 gm PO DAILY liver 10/20/20 03/15/23 oral powder clopidogrel 75 mg tablet 75 mg PO DAILY Blood thinner 10/20/20 03/15/23 hydrochlorothiazide 25 mg tablet 25 mg PO DAILY bp 10/20/20 03/15/23 levothyroxine 137 mcg tablet 200 mcg PO DAILY thyroid 10/20/20 03/15/23 losartan 100 mg tablet 100 mg PO DAILY bp 10/20/20 03/15/23 pantoprazole 40 mg tablet,delayed 40 mg PO DAILY GERD 10/20/20 03/15/23 release prednisone 5 mg tablet 5 mg PO DAILY autoimmune 10/20/20 03/15/23 furosemide 20 mg tablet 20 mg PO DAILY 03/15/23 03/15/23 voriconazole 50 mg tablet 50 mg PO DAILY 03/15/23 03/15/23 Previous Rx's Medication Instructions Recorded sodium zirconium cyclosilicate 10 10 g PO DAILY #30 ea 01/06/23 gram oral powder packet (Lokelma) Allergies Allergy/AdvReac Type Severity Reaction Status Date / Time cefepime Allergy Verified 03/15/23 20:26 [facility] Disclaimer: The information contained in this section may have been updated after the patient was seen, as this information can be updated by other users. Social History Smoking Status: Never smoker alcohol intake: never substance use type: denies use current occupational status: employed Travel in the last 8 weeks: None household members: spouse housing: house current occupational exposures/hazards: No caffeine: Yes ROS Obtained: Yes All systems reviewed & no additional complaints except as documented Physical Exam General General appearance: alert Respiratory Respiratory exam: Absent normal lung sounds bilaterally, respiratory distress, wheezes or stridor Cardiovascular Cardiovascular exam: Present tachycardia and other (Warm extremities good peripheral perfusion) Abdominal Exam Abdominal exam: Present soft and other (Incisions clean dry and intact no erythema or purulence); Absent distention or tenderness Neurological Exam Neurological exam: Present alert and oriented X3 Skin Skin exam: Present warm (I rechecked patient's temperature and it was 100.8 orally) Medical Decision Making [place] Inquiry Pt receiving controlled substance: No Vital Signs: 03/15/23 19:50 03/15/23 20:06 03/15/23 20:30 Temperature 99.3 F Temperature Source Oral Pulse Rate 100 H 94 H Pulse Rate [Right] 101 H Respiratory Rate 18 Blood Pressure 139/81 Blood Pressure [Right Arm] 138/84 Blood Pressure Mean [Right Arm] 102 02 Sat by Pulse Oximetry 97 95 97 Oxygen Delivery Method Room Air Room Air 03/15/23 21:14 03/15/23 21:30 Temperature Temperature Source Pulse Rate 106 H 107 H Pulse Rate [Right] Respiratory Rate Blood Pressure 150/90 H 161/96 H Blood Pressure [Right Arm] Blood Pressure Mean [Right Arm] 02 Sat by Pulse Oximetry 90 L 97 Oxygen Delivery Method Lab Data Lab results reviewed: Yes I reviewed the patient's lab results. Lab Results 03/15/23 20:15: WBC 10.7, RBC 3.55 L, Hgb 10.7 L, Hct 32.9 L, MCV 92.8, MCH 30.2, MCHC 32.5, RDW 14.6, Plt Count 386, MPV 8.3, Neut % (Auto) 79.1, Lymph % (Auto) 15.4, [place] % (Auto) 4.8, Eos % (Auto) 0.5, Baso % (Auto) 0.2, Neut # (Auto) 8.5 H, Lymph # (Auto) 1.7, [place] # (Auto) 0.5, Eos # (Auto) 0.1, Baso # (Auto) 0.0, PT 12.2, INR 1.14 H, Sodium 131 L, Potassium 3.3 L, Chloride 96 L, Carbon Dioxide 28, Anion Gap 10.3, BUN 26 H, Creatinine 1.10, Estimated Creat Clear 48, Estimated GFR 66, Est GFR ( Amer) 79, Glucose 123 H, Lactate 1.2, Calcium 8.5, Phosphorus 2.3 L, Magnesium 1.5 L, Total Bilirubin 0.7, AST 29, ALT 20, Alkaline Phosphatase 200 H, Troponin I 1.28 H, Total Protein 7.0, Albumin 3.8, Globulin 3.2, Albumin/Globulin Ratio 1.2, Procalcitonin 0.303 03/15/23 20:19: SARS-CoV-2 (PCR) Not detected, Influenza A Untype (PCR) Not detected, Influenza Type B (PCR) Not detected 03/15/23 22:02: Urine Color Yellow, Urine Appearance Clear, Urine pH 8.5, Ur Specific [place] 1.020, Urine Protein Trace, Urine Glucose (UA) Negative, Urine Ketones Negative, Urine Blood Negative, Urine Nitrate Positive, Urine Bilirubin Negative, Urine Urobilinogen 0.2, Ur Leukocyte Esterase Negative, Urine WBC 3-5, Urine Bacteria 3+ 03/15/23 20:15 03/15/23 20:15 Orders (Tests/Meds): ED MEDICATIONS Generic Name Dose Route Start Last Admin Trade Name Freq PRN Reason Stop Dose Admin Piperacillin Sod/Tazobactam 50 mls @ 100 mls/hr 03/15/23 21:00 03/15/23 21:26 Sod 3.375 gm/ Sodium Chloride IV 03/25/23 20:59 100 mls/hr Q6H ANGEL Administration Vancomycin/PEG/NADA/Lysine/Water 1.25 gm in 250 mls @ 125 mls/hr 03/15/23 21:15 03/15/23 22:36 Vancomycin 1.25gm/250ml (Peg) Premix IV 03/15/23 23:14 125 mls/hr ONCE ONE Administration Miscellaneous 1 each 03/15/23 21:00 03/15/23 21:38 Vancomycin Consult Request NOTAPPLIC 04/14/23 20:59 1 each CONSULT PHARMACY ANGEL Administration Discontinued Medications Generic Name Dose Route Start Last Admin Trade Name Freq PRN Reason Stop Dose Admin Lactated Ringer's 1,000 mls @ 999 mls/hr 03/15/23 21:00 03/15/23 21:26 Lactated Ringer's 1000 Ml Bag IV 03/15/23 22:00 999 mls/hr .Q1H1M ANGEL Administration ORDERS Category Date Time Status Chest XR -- portable [XR chest portable] Stat Exams 03/15/23 20:25 Completed Complete Blood Count Auto Diff Stat Lab 03/15/23 20:15 Completed Comprehensive Metabolic Panel Stat Lab 03/15/23 20:15 Completed Full Resp Panel w/COVID ([facility]) Routine Lab 03/15/23 20:19 Received Lactic Acid Stat Lab 03/15/23 20:15 Completed Magnesium Stat Lab 03/15/23 20:15 Completed PT INR [Prothrombin Time INR] Stat Lab 03/15/23 20:15 Completed Phosphorous Stat Lab 03/15/23 20:15 Completed Procalcitonin Stat Lab 03/15/23 20:15 Completed Rapid PCR Covid and Flu A/B Stat Lab 03/15/23 20:19 Completed Trop I [Troponin I] Stat Lab 03/15/23 20:15 Completed Troponin I Q3H Lab 03/15/23 23:54 Ordered Troponin I Q3H Lab 03/16/23 02:54 Ordered UA [Urinalysis and Microscopic] Stat Lab 03/15/23 22:02 Completed Blood Culture Stat Micro 03/15/23 21:24 Received Urine Culture Stat Micro 03/15/23 22:02 Received Tissue Perfus/Sepsis Re-Eval Sepsis Re-Evaluation Performed: Yes Date Performed: 03/15/23 Time Performed: 22:29 Medical Decision Narrative: Patient is a chronically immunosuppressed 72-year-old with recent lung transplant in June of this year followed at [facility] presenting today with tachycardia and fever (I took his temperature in the room is 100.8). Therefore the patient is objectively septic in the setting of immunosuppression differential is very broad including bacterial pathogens viral pathogens opportunistic infections etc. Will initiate broad-spectrum antibiotics including Vanco and Zosyn, patient has a cefepime allergy which dictated my choice on antibiotics at this point. IV fluids will be initiated. He already took Tylenol just prior to arrival and still febrile. States that he cannot take any type of NSAIDs per his liver transplant team's direction. I anticipate this patient will be transferred [facility] after his initial workup is complete. Chest x-ray performed which I personally interpreted which shows some right lower lobe groundglass/interstitial infiltrates which are atelectasis versus pneumonia. Urinalysis positive nitrites consistent with urinary tract infection. Troponin significantly elevated at 1.28 which is about 40 times the upper limit of normal. This could be endorgan damage associated with sepsis or acute myocardial injury such as with myocarditis. Symptoms or not consistent with a type I NE. This is all consistent with severe sepsis and the organ dysfunction is likely endorgan damage in the setting of an infectious process. IV fluids have been initiated patient maintains a MAP greater than 65 serial perfusion assessments are improving. I spoke with Dr. Nicole with [facility] transplant surgery team who accepted the patient. After I spoke with Dr. Mays went and evaluated the patient with the bedside ultrasound to make sure that he did not have a significant pericardial effusion as I was primarily concerned about myocarditis however the patient's ejection fraction was moderate to severely depressed with what appeared to have regional wall motion abnormalities in the lateral and apical romero. He states that he had an echo done in the past in [place] and was told that it was normal. He had a known history of a critical stenotic lesion but had never had any stents or any intervention. Patient is persistently tachycardic with a heart rate of 125 he is critically ill at this point. I am concerned that he may need more urgent cardiac intervention I went back and looked at his EKG again there are no obvious ischemic changes that are ongoing and patient is adamant that he does not have any chest pain he does have a little bit of back discomfort but has had no ischemic symptoms. Differential still includes myocarditis versus recent NE. I do not have a troponin delta at this point. Dr. Castro was made aware of this at [facility] and will place him in the ICU given how sick he has particular from a hemodynamic standpoint at this point. Our EMS crew is out on another run we will see if we can get our helicopter crew to take him to [place]. Awaiting a bed placement the patient will be transferred to [place] once they have a bed available. Family and the patient are aware of this plan and agreeable. Procedures Miscellaneous Procedure Procedure Performed: Limited cardiac ultrasound Indication: Elevated troponin Identified structures: The heart was visualized in the parasternal long axis, parastenal short axis, apical four chamber and subxyphiod views. The IVC was visualized in the short axis and long axis at its entry into the right atrium. Findings: Moderate to severely depressed EF with apical akinesis and hypokinesis of the inferolateral wall no pericardial effusion no evidence of any severe or significant right heart strain Impression: Evidence of regional wall motion abnormality in the lateral and apical romero with moderate to severe LVEF depression, no significant evidence of significant right heart strain no pericardial effusion Images were saved to permanent archive The study was technically adequate CPT: 50857-54 This study was performed by me, and I personally interpreted all images/videos. Based on my clinical judgement, these images were adequate and did not necessitate further imaging. Limited lung ultrasound A focused ultrasound exam of the pleural spaces was performed to evaluate for pneumothorax, pulmonary edema, pleural effusion and/or consolidation. The ultrasound was performed with the following indications, as noted in the H&P: Elevated troponin concern for heart failure Identified structures: Thoracic cavities were examined. Findings: Lung sliding was present bilaterally B-lines were present in all lung delatorre anterior laterally no evidence of pleural effusion or focal consolidation noted Impression: Diffuse B-lines present consistent with pulmonary edema no pleural effusion or focal consolidation noted on ultrasound Images saved to permanent archive The study was technically adequate CPT 28263-14 This study was performed by me, and I personally interpreted all images/videos. Based on my clinical judgement, these images were adequate and did not necessitate further imaging. Critical Care Critical Care Time Critical Care Time: Yes Attestation: On 03/15/23, the high probability of a clinically significant, sudden or life threatening deterioration of the following system(s) required my full and direct attention, intervention and personal management. The time I documented below is in addition to time spent performing reported procedures but includes the following listed in this critical care notation. Total Time Total Critical Care Time: 65
[2023-03-15 21:05] LABS: Adenovirus,PCR Not Detected (NotDetected); Coronavirus 19, PCR Not Detected (NotDetected); Coronavirus 229E Not Detected (NotDetected); Coronavirus NL63 Not Detected (NotDetected); Coronavirus OC43 Not Detected (NotDetected); Coronovirus HKU1,PCR Not Detected (NotDetected); Human Metapneumovirus Not Detected (NotDetected); Influenza A, PCR Not Detected (NotDetected); Influenza AH1, 2009 Not Detected (NotDetected); Influenza AH1, PCR Not Detected (NotDetected); Influenza AH3,PCR Not Detected (NotDetected); Influenza B, PCR Not Detected (NotDetected); Parainfluenza 1, PCR Not Detected (NotDetected); Parainfluenza 2, PCR Not Detected (NotDetected); Parainfluenza 3, PCR Not Detected (NotDetected); Parainfluenza 4, PCR Not Detected (NotDetected); Respiratory Syncytial Virus Not Detected (NotDetected); Rhinovirus/Enterovirus Not Detected (NotDetected)
[2023-03-15 21:05] LABS: Alanine Aminotransferase 20 U/L (12-78); Albumin Level 3.8 g/dl (3.5-5.0); Albumin/Globulin Ratio 1.2 (1.1-1.8); Alkaline Phosphatase 200 U/L (38-126); Anion Gap 10.3 mEq/L (5-15); Aspartate Amino Transferase 29 U/L (17-59); Bilirubin,Total 0.7 mg/dl (0.2-1.3); Blood Urea Nitrogen 26 mg/dl (9-20); Calcium 8.5 mg/dl (8.4-10.2); Carbon Dioxide 28 mmol/L (22.0-30.0); Chloride 96 mmol/L (98-107); Creatinine Clearance Estimated 48 mL/min (50-200); Estimated Glomerular Filt Rate 66 ml/min (>60); GFR (African American) 79 ML/MIN (>60); Globulin 3.2 g/dL (1.3-3.2); Glucose 123 mg/dl (74-100); Potassium 3.3 mmoL/L (3.5-5.1); Sodium 131 mmol/L (136-145)
[2023-03-15 21:08] LABS: INR 1.14 (0.9-1.1); Prothrombin Time 12.2 seconds (10.1-12.5)
[2023-03-15 21:14] VITALS: BP 150/90; PULSE 106; O2SAT 90
[2023-03-15 21:19] LABS: Magnesium 1.5 mg/dl (1.6-2.3); Phosphorous 2.3 mg/dl (2.5-4.5)
[2023-03-15] MEDS: PIPERCILLIN/TAZO 3.375 GM in 0.9 % SODIUM CHLORIDE 50 ML IV (21:26)
[2023-03-15] MEDS: LACTATED RINGERS 1000ML 1,000 ML 999 ML IV (21:26)
[2023-03-15 21:30] VITALS: BP 161/96; PULSE 107; O2SAT 97
[2023-03-15 21:36] LABS: Procalcitonin 0.303 ng/mL (0.0-2.0)
[2023-03-15] MEDS: VANCOMYCIN CONSULT REQUEST 1 EACH NOTAPPLIC (21:38)
[2023-03-15 21:46] LABS: Troponin I 1.28 ng/ml (0.00-0.034)
--- NOTE | 2023-03-15 21:47 | PC.NURSE ---
Critical Lab phone call taken for this patient Trop was 1.28
[2023-03-15 22:09] LABS: Microscopic, Urine URINE MICROSCOPIC (MICROSCOPIC)
[2023-03-15 22:20] LABS: Appearance,Urine CLEAR (Clear); Bilirubin,Urine Negative (Negative); Blood, Urine Negative (Negative); Color,Urine YELLOW (Yellow); Glucose,Urine (UA) Negative (Negative); Ketones,Urine Negative (Negative); Leukocyte Esterase,Urine Negative (Negative); Nitrate,Urine POSITIVE (Negative); PH,Urine 8.5 (5.0-8.5); Protein,Urine TRACE (Negative); Urobilinogen,Urine 0.2 EU/dl (0.2)
--- NOTE | 2023-03-15 22:31 | PC.NURSE ---
[facility] contacted over transfer and consult with internal medicine.
[2023-03-15] MEDS: VANCOMYCIN/WATER FOR INJ (PEG) 1.25 GM/250 ML PIGGYBACK IV (22:36)
--- NOTE | 2023-03-15 22:39 | PC.NURSE ---
Dr. Castro accepting
--- NOTE | 2023-03-15 22:39 | PC.NURSE ---
in room talking with patient at this time.
--- NOTE | 2023-03-15 22:43 | PC.NURSE ---
MD @ bedside performing ultrasound on heart
[2023-03-15 22:44] LABS: Bacteria,Urine 3+ /lpf
--- NOTE | 2023-03-15 22:57 | PC.NURSE ---
called [employer] checking flight status for [place] and will call us back
--- NOTE | 2023-03-15 23:36 | PC.NURSE ---
Called for update on bed placement.
[2023-03-16 00:25] LABS: Troponin I 0.93 ng/ml (0.00-0.034)
--- NOTE | 2023-03-16 00:26 | PC.NURSE ---
Critical Lab Value phone call taken Troponin 0.93
--- NOTE | 2023-03-16 01:03 | PC.NURSE ---
called [facility] again for update they now have a bed on the surgical ICU bed 8.
[2023-03-16 02:08] VITALS: BP 175/105; PULSE 145; RESP 20; TEMP 38.3
--- NOTE | 2023-03-23 10:48 | PC.NURSE ---
URINE CULTURE RESULTS FAXED TO [facility]
== END 2023-03-16 02:12 | disposition other institution (70) ==
PROVIDERS: Emergency Provider Student in an Organized Health Care Education/Training Program; PCP Family Medicine
DX: A41.9 Sepsis, unspecified organism (principal); R65.20 Severe sepsis without septic shock; D84.821 Immunodeficiency due to drugs; I25.2 Old myocardial infarction; N39.0 Urinary tract infection, site not specified; I50.9 Heart failure, unspecified; Z94.4 Liver transplant status
CPT/HCPCS: 36415; 71045; 80053; 81001; 83605; 83735; 84100; 84145; 84484; 85025; 85610; 87040; 87086; 87632; 87635; 87636; 93005; 96361; 96365; 96366; 99291; J2543

== ENCOUNTER 2023-10-24 13:00 | Outpatient (RCR) | payer MEDICARE, SELFPAY | END 2023-10-24 13:05 | disposition home or self-care (01) | LOC: PT 13:00 | PROVIDERS: Visit Provider Student in an Organized Health Care Education/Training Program | DX: R53.1 Weakness (principal); Z86.73 Personal history of transient ischemic attack (TIA), and cerebral infarction without residual deficits | CPT/HCPCS: 97110; 97112; 97116; 97163; 97164 ==

== ENCOUNTER 2023-10-26 10:38 | Emergency (ER) | payer MEDICARE, SELFPAY ==
[2023-10-26] VITALS (7 sets, daily range): BP systolic 112–122; BP diastolic 66–75; PULSE 67–80; RESP 18; TEMP 36.4–36.6; O2SAT 97–100; BMI 23.3
--- NOTE | 2023-10-26 11:18 | ED_ITS ---
Discharge Plan Disposition Patient Disposition: Home, Self-Care Prescriptions Prescriptions: New amoxicillin-pot clavulanate 875-125 mg tablet 1 tab PO BID 10 Days Qty: 20 0RF No Action levothyroxine 137 MCG tablet 200 mcg PO DAILY prednisone 5 MG tablet 5 mg PO DAILY clopidogrel 75 MG tablet 75 mg PO DAILY pantoprazole 40 MG tablet,delayed release (DR/EC) 40 mg PO DAILY aspirin 81 MG tablet,chewable 81 mg PO DAILY hydrochlorothiazide 25 MG tablet 25 mg PO DAILY losartan 100 MG tablet 100 mg PO DAILY cholestyramine (with sugar) 378 GM powder 378 gm PO DAILY furosemide 20 mg tablet 20 mg PO DAILY Patient Comments: TAKE 1 TABLET BY MOUTH ONCE DAILY voriconazole 50 mg tablet 50 mg PO DAILY Lokelma 10 gram powder in packet 10 g PO DAILY Qty: 30 0RF Referrals Follow up/Referrals: Leo Estrella MD [Primary Care Provider] - See instructions Activity Restrictions/Add. Instructions Additional Instructions/Restrictions: Call your family doctor to establish care for this visit to the emergency department and schedule follow-up within 48 hours to ensure improvement. If you have any worsening of your condition or any other concerning signs or symptoms, return to the emergency department or your primary care doctor for further evaluation. Augmentin twice daily for 10 days. Clinical Impressions Clinical Impression: Urinary tract infection Print Language Print Language: Turkmen Discharge ED Provider: Eric Streeter General Adult HPI General Chief complaint: PAIN Stated complaint: Sharp pain lower R abd/Back, liver transplant laly Time Seen by Provider: 10/26/23 10:57 Mode of Arrival: Wheelchair Source of Information: Patient and Spouse Limitations: Physical Limitations Description of Symptoms (Recalled from ER Triage Doc. by RN): r flank pain History of Present Illness HPI narrative: Please note that above description of symptoms, in this electronic medical record under categorization of recalled from ER triage doctor by RN are reflective of an initial nursing assessment, however, is not reflective of my full history and physical exam that was personally taken and clarified. Consequentially, this preceding description of symptoms, which may include the patient's categorized chief complaint in the EMR, do not reflect my personal clinical impression, and the ultimate description of history of present illness and patient stated complaints should be deferred to this section of the note. Unless stated otherwise or congruent with this section of the note, additional signs, symptoms, or incongruence should be interpreted as inaccurate with my clinical impression. Related Data Home Medications ?Medication ?Instructions ?Recorded ?Confirmed aspirin 81 mg chewable tablet 81 mg PO DAILY Blood thinner 10/20/20 03/15/23 cholestyramine (with sugar) 4 gram 378 gm PO DAILY liver 10/20/20 03/15/23 oral powder clopidogrel 75 mg tablet 75 mg PO DAILY Blood thinner 10/20/20 03/15/23 hydrochlorothiazide 25 mg tablet 25 mg PO DAILY bp 10/20/20 03/15/23 levothyroxine 137 mcg tablet 200 mcg PO DAILY thyroid 10/20/20 03/15/23 losartan 100 mg tablet 100 mg PO DAILY bp 10/20/20 03/15/23 pantoprazole 40 mg tablet,delayed 40 mg PO DAILY GERD 10/20/20 03/15/23 release prednisone 5 mg tablet 5 mg PO DAILY autoimmune 10/20/20 03/15/23 furosemide 20 mg tablet 20 mg PO DAILY 03/15/23 03/15/23 voriconazole 50 mg tablet 50 mg PO DAILY 03/15/23 03/15/23 Previous Rx's ?Medication ?Instructions ?Recorded sodium zirconium cyclosilicate 10 10 g PO DAILY #30 ea 01/06/23 gram oral powder packet (Lokelma) amoxicillin 875 mg-potassium 1 tab PO BID 10 days #20 tabs 10/26/23 clavulanate 125 mg tablet Allergies Allergy/AdvReac Type Severity Reaction Status Date / Time cefepime Allergy Verified 03/15/23 20:26 [facility] Disclaimer: The information contained in this section may have been updated after the patient was seen, as this information can be updated by other users. Social History Smoking Status: Never smoker alcohol intake: never substance use type: denies use current occupational status: employed Travel in the last 8 weeks: None household members: spouse housing: house current occupational exposures/hazards: No caffeine: Yes ROS Obtained: Yes All systems reviewed & no additional complaints except as documented Physical Exam General General appearance: alert Head Head exam: atraumatic and normocephalic Eye Eye exam: Present normal appearance, PERRL and EOMI Neck Neck exam: Present normal inspection, full ROM and trachea midline Respiratory Respiratory exam: Absent respiratory distress, wheezes, stridor, accessory muscle use or prolonged expiratory phase Cardiovascular Cardiovascular exam: Present other (Pulses equal symmetric in upper and lower extremities) Abdominal Exam Abdominal exam: Present soft and hernia; Absent distention, tenderness or pulsatile mass Extremities Exam Extremities exam: Absent edema Neurological Exam Neurological exam: Present alert, oriented X3 and CN II-XII intact; Absent motor sensory deficit Skin Skin exam: Present warm and dry; Absent diaphoresis or erythema Medical Decision Making Medical Records Medical records reviewed: Yes I reviewed the patient's medical records. Derrell Inquiry Pt receiving controlled substance: No Derrell was queried for this patient: No Vital Signs: 10/26/23 10:40 10/26/23 11:00 10/26/23 11:30 Temperature 97.6 F Temperature Source Oral Pulse Rate 75 67 Pulse Rate [Left] 80 Respiratory Rate 18 Blood Pressure 122/70 118/72 Blood Pressure [Left Arm] 113/70 Blood Pressure Mean [Left Arm] 84 02 Sat by Pulse Oximetry 100 98 98 Oxygen Delivery Method Room Air Room Air Room Air 10/26/23 12:00 10/26/23 12:30 Temperature Temperature Source Pulse Rate 77 72 Pulse Rate [Left] Respiratory Rate Blood Pressure 112/66 120/72 Blood Pressure [Left Arm] Blood Pressure Mean [Left Arm] 02 Sat by Pulse Oximetry 97 100 Oxygen Delivery Method Lab Data Lab Results 10/26/23 11:55: Urine Color Yellow, Urine Appearance Cloudy, Urine pH 6.0, Ur Specific [place] 1.020, Urine Protein Negative, Urine Glucose (UA) Negative, Urine Ketones Negative, Urine Blood Trace-i, Urine Nitrate Negative, Urine Bilirubin 1+ A, Urine Urobilinogen 1.0, Ur Leukocyte Esterase 3+ A, Urine RBC None, Urine WBC Tntc, Ur Squamous Epith Cells Occasional, Urine Bacteria 1+, WBC Casts 3-5 10/26/23 12:00: WBC 6.0, RBC 3.69 L, Hgb 11.9 L, Hct 37.5 L, MCV 101.4 H, MCH 32.3 H, MCHC 31.9, RDW 13.3, Plt Count 307, MPV 8.1, Neut % (Auto) 61.5, Lymph % (Auto) 28.0, Greene % (Auto) 7.1, Eos % (Auto) 2.9, Baso % (Auto) 0.5, Neut # (Auto) 3.7, Lymph # (Auto) 1.7, Greene # (Auto) 0.4, Eos # (Auto) 0.2, Baso # (Auto) 0.0, Sodium 134 L, Potassium 5.1, Chloride 103, Carbon Dioxide 23, Anion Gap 13.1, BUN 41 H, Creatinine 1.10, Estimated Creat Clear 55, Estimated GFR 65, Est GFR ( Amer) 79, Glucose 107 H, Calcium 9.3, Total Bilirubin 0.6, AST 41, ALT 38, Alkaline Phosphatase 365 H, C-Reactive Protein 7.8 H, Total Protein 7.6, Albumin 4.1, Globulin 3.5 H, Albumin/Globulin Ratio 1.2, Lipase 44 10/26/23 12:00 10/26/23 12:00 Orders (Tests/Meds): ORDERS Category Date Time Status CBC w/Auto Diff [Complete Blood Count Auto Diff] Stat Lab 10/26/23 12:00 Completed CMP [Comprehensive Metabolic Panel] Stat Lab 10/26/23 12:00 Completed CRP [C-Reactive Protein] Stat Lab 10/26/23 12:00 Completed Lipase Stat Lab 10/26/23 12:00 Completed UA [Urinalysis and Microscopic] Stat Lab 10/26/23 11:55 Completed Urine Culture Stat Micro 10/26/23 11:55 Received Medical Decision Narrative: 73-year-old male history of hypertension, hyperlipidemia, hypothyroidism, liver transplant in 06/2022 presenting with abdominal discomfort. This been going on for 3 to 4 weeks. Patient states that it is just underneath the hernia on his right side, but is deep enough that he cannot push on it or touch it. It is mild in intensity, does not radiate. Has to self cath every day due to bladder dysfunction, but denies fevers, chills, nausea, vomiting, or any other concerns. No history of dark urine, light-colored stools, blood in his stool or urine, vomiting, overlying skin changes, medication changes, nephrolithiasis, or any other concerns. States that he has been doing a lot of work with physical therapy, feels this is probably the cause, but came in out of abundance of concern. History was obtained via conversation with patient and . On arrival, patient hemodynamically stable, alert, oriented x4, appropriate, GCS 15, moving all extremities spontaneously, pupils equal and reactive to light. Full physical exam performed and significant for very well-appearing male no acute distress. In wheelchair. Large hernia sac on the right side of his abdomen with overlying scar, reducible and nontender. Abdomen is soft, nontender, nondistended, no overlying skin changes. No flank tenderness to percussion, but he does have pain at his SI joint. Differential includes UTI, nephrolithiasis, pyelonephritis, appendicitis, colitis, enteritis, musculoskeletal, among others. Patient placed on continuous cardiac monitoring and continuous pulse ox with initial blood pressure 113/7, heart rate 80, saturation 100% on room air. Workup independently interpreted and significant for nonactionable CBC or chemistry. Patient's kidney function normal. CRP nonactionable. Patient's urinalysis with concern for UTI. CT of the abdomen and pelvis was considered, but not deemed necessary at this time. Patient does self cath, has right flank/deep right lower quadrant pelvic pain and UTI on UA. Not deemed necessary at this time. Patient sent home with Augmentin. Because patient at baseline without signs or symptoms of clinical decompensation, deemed appropriate for discharge. Results were relayed to patient who voiced understanding and were agreeable to outpatient management and follow up. I discussed my clinical impression with patient and answered all questions. At this time, the evidence for any other entities in the differential is insufficient to warrant any further testing or ED observation. This was explained as well. Advisory was given that persistent or worsening symptoms require further evaluation. I confirmed the understanding of this discussion. Slot Operations Manager disclaimer Much of this encounter note is an electronic television production clerk spoken language to printed text. Electronic television production clerk of the spoken language may permit errors. Although I have reviewed the note, some errors may still exist. Critical Care Critical Care Time Critical Care Time: No
[2023-10-26 12:00] LABS: Microscopic, Urine URINE MICROSCOPIC (MICROSCOPIC)
[2023-10-26 12:18] LABS: Basophils % 0.5 % (0.1-2.0); Eosinophils # 0.2 K/mm3 (0.0-0.4); Eosinophils % 2.9 % (0.1-12.0); Hematocrit 37.5 % (42.0-52.0); Hemoglobin 11.9 g/dL (14.1-18.0); Lymphocytes # 1.7 K/mm3 (0.7-4.5); Mean Corpuscular HGB Conc 31.9 g/dL (31.8-35.4); Mean Corpuscular Hemoglobin 32.3 pg (27.0-31.2); Mean Corpuscular Volume 101.4 fl (80-94); Mean Platelet Volume 8.1 fl (7.4-10.4); Monocytes # 0.4 K/mm3 (0.1-1.0); Monocytes % 7.1 % (1.7-9.3); Neutrophils # 3.7 K/mm3 (1.8-7.8); Neutrophils % 61.5 % (37.0-80.0); Platelet Count 307 K/mm3 (142-424); Red Blood Count 3.69 M/mm3 (4.60-6.20); Red Cell Distribution Width 13.3 % (11.5-17.5)
[2023-10-26 12:21] LABS: Alanine Aminotransferase 38 U/L (12-78); Albumin Level 4.1 g/dl (3.5-5.0); Albumin/Globulin Ratio 1.2 (1.1-1.8); Alkaline Phosphatase 365 U/L (38-126); Anion Gap 13.1 mEq/L (5-15); Aspartate Amino Transferase 41 U/L (17-59); Bilirubin,Total 0.6 mg/dl (0.2-1.3); Blood Urea Nitrogen 41 mg/dl (9-20); Calcium 9.3 mg/dl (8.4-10.2); Carbon Dioxide 23 mmol/L (22.0-30.0); Chloride 103 mmol/L (98-107); Creatinine Clearance Estimated 55 mL/min (50-200); Estimated Glomerular Filt Rate 65 ml/min (>60); GFR (African American) 79 ML/MIN (>60); Globulin 3.5 g/dL (1.3-3.2); Glucose 107 mg/dl (74-100); Lipase 44 U/L (23-300); Potassium 5.1 mmoL/L (3.5-5.1); Sodium 134 mmol/L (136-145); Total Protein,Serum 7.6 g/dl (6.3-8.2)
[2023-10-26 12:27] LABS: Appearance,Urine CLOUDY (Clear); Blood, Urine TRACE-I (Negative); Color,Urine YELLOW (Yellow); Glucose,Urine (UA) Negative (Negative); Ketones,Urine Negative (Negative); Leukocyte Esterase,Urine 3+ (Negative); Nitrate,Urine Negative (Negative); Protein,Urine Negative (Negative)
[2023-10-26 12:27] LABS: C-Reactive Protein 7.8 mg/L (0-4)
[2023-10-26 12:38] LABS: Bilirubin,Urine 1+ (Negative)
[2023-10-26 12:41] LABS: Bacteria,Urine 1+ /lpf; Squamous Epithelial Cell,Urine Occasional #/hpf (0-5); WBC,Urine TNTC #/hpf (0-3)
--- NOTE | 2023-10-26 13:00 | PC.NURSE ---
Dr. Streeter at BS to update pt on results and POC
--- NOTE | 2023-10-27 13:28 | PC.NURSE ---
urine culture discussed with , pt dc with augmentin, ntd
== END 2023-10-26 13:35 | disposition home or self-care (01) ==
PROVIDERS: Emergency Provider Emergency Medicine; PCP Family Medicine
DX: N39.0 Urinary tract infection, site not specified (principal); B96.4 Proteus (mirabilis) (morganii) as the cause of diseases classified elsewhere; R10.31 Right lower quadrant pain; M54.59 Other low back pain; I10 Essential (primary) hypertension; E78.5 Hyperlipidemia, unspecified; E03.9 Hypothyroidism, unspecified; Z94.4 Liver transplant status
CPT/HCPCS: 80053; 81001; 83690; 85025; 86140; 87086; 87088; 87186; 99283

== ENCOUNTER 2023-11-04 19:36 | Emergency (ER) | payer MEDICARE, SELFPAY ==
[2023-11-04 20:34] VITALS: BP 142/91; PULSE 79; RESP 20; TEMP 36.6; O2SAT 98; BMI 18.3
--- NOTE | 2023-11-04 20:46 | ED_ITS ---
Discharge Plan Disposition Patient Disposition: Home, Self-Care Condition: Good Prescriptions Prescriptions: New ciprofloxacin HCl 500 mg tablet 500 mg PO BID Qty: 20 0RF No Action levothyroxine 137 MCG tablet 200 mcg PO DAILY prednisone 5 MG tablet 5 mg PO DAILY clopidogrel 75 MG tablet 75 mg PO DAILY pantoprazole 40 MG tablet,delayed release (DR/EC) 40 mg PO DAILY aspirin 81 MG tablet,chewable 81 mg PO DAILY hydrochlorothiazide 25 MG tablet 25 mg PO DAILY losartan 100 MG tablet 100 mg PO DAILY cholestyramine (with sugar) 378 GM powder 378 gm PO DAILY furosemide 20 mg tablet 20 mg PO DAILY Patient Comments: TAKE 1 TABLET BY MOUTH ONCE DAILY voriconazole 50 mg tablet 50 mg PO DAILY amoxicillin-pot clavulanate 875-125 mg tablet 1 tab PO BID 10 Days Qty: 20 0RF Lokelma 10 gram powder in packet 10 g PO DAILY Qty: 30 0RF Referrals Follow up/Referrals: Provider,Referral, MD [Primary Care Provider] - See instructions Clinical Impressions Clinical Impression: UTI (urinary tract infection), Acute right flank pain Instructions Patient Instructions: DI for Acute Pain -- Adult Print Language Print Language: Cook Islander Discharge ED Provider: Emile Thompson General Adult HPI General Chief complaint: PAIN Stated complaint: back and leg pain Time Seen by Provider: 11/04/23 20:10 Mode of Arrival: Wheelchair Source of Information: Patient Limitations: Physical Limitations Description of Symptoms (Recalled from ER Triage Doc. by RN): Pt. presented to the ED with c/o right leg paqin and back pain. Pt. had a liver transplant last June 2023. has had kidney problems since transplant. Pt. does self cath 4-5 times a day, Pt. had UTI and has been on 9 days antibiotics.. to c/o right flank pain hat radiates to rightr groin. . Pt, had a CT last week and they said stones in kidney but not inthe ureters. Pt. c/o paiin to right leg states he can't stand. History of Present Illness HPI narrative: 73-year-old male presents to the ED with complaint of right flank pain that radiates to right groin. Patient has past medical history of liver transplant. Has just finished 9 days of Augmentin treatment for UTI. States he is still having some pain however has no fevers and pain has improved following antibiotics. Currently requesting further antibiotics. Patient was seen at [facility] this week had CT performed that showed less than 5 mm stones in bilateral kidneys per review of radiology report the patient has been with him. No obstructive stones noted. Of note triage note mentions pain in right leg patient clarifies this was stating that he is weak in the right leg from the pain in his right flank. Denies other symptoms or concerns at this time including nausea, vomiting, chest pain. Patient self caths 4-5 times a day. Denies any hematuria Related Data Home Medications ?Medication ?Instructions ?Recorded ?Confirmed aspirin 81 mg chewable tablet 81 mg PO DAILY Blood thinner 10/20/20 03/15/23 cholestyramine (with sugar) 4 gram 378 gm PO DAILY liver 10/20/20 03/15/23 oral powder clopidogrel 75 mg tablet 75 mg PO DAILY Blood thinner 10/20/20 03/15/23 hydrochlorothiazide 25 mg tablet 25 mg PO DAILY bp 10/20/20 03/15/23 levothyroxine 137 mcg tablet 200 mcg PO DAILY thyroid 10/20/20 03/15/23 losartan 100 mg tablet 100 mg PO DAILY bp 10/20/20 03/15/23 pantoprazole 40 mg tablet,delayed 40 mg PO DAILY GERD 10/20/20 03/15/23 release prednisone 5 mg tablet 5 mg PO DAILY autoimmune 10/20/20 03/15/23 furosemide 20 mg tablet 20 mg PO DAILY 03/15/23 03/15/23 voriconazole 50 mg tablet 50 mg PO DAILY 03/15/23 03/15/23 Previous Rx's ?Medication ?Instructions ?Recorded sodium zirconium cyclosilicate 10 10 g PO DAILY #30 ea 01/06/23 gram oral powder packet (Lokelma) amoxicillin 875 mg-potassium 1 tab PO BID 10 days #20 tabs 10/26/23 clavulanate 125 mg tablet ciprofloxacin HCl 500 mg tablet 500 mg PO BID #20 tabs 11/04/23 Allergies Allergy/AdvReac Type Severity Reaction Status Date / Time cefepime Allergy Verified 03/15/23 20:26 [facility] Disclaimer: The information contained in this section may have been updated after the sid nt was seen, as this information can be updated by other users. Social History Smoking Status: Never smoker alcohol intake: never substance use type: denies use current occupational status: employed Travel in the last 8 weeks: None household members: spouse housing: house current occupational exposures/hazards: No caffeine: Yes ROS Obtained: Yes Systems reviewed as appropriate & no additional complaints except as documented Physical Exam General General appearance: alert and in no apparent distress Head Head exam: atraumatic and normocephalic Eye Eye exam: Present normal appearance and EOMI ENT ENT exam: Present normal exam Neck Neck exam: Present normal inspection and full ROM Chest Chest inspection: Present normal inspection and symmetric chest wall rise Respiratory Respiratory exam: Present normal lung sounds bilaterally; Absent respiratory distress Cardiovascular Cardiovascular exam: Present regular rate, normal rhythm and normal heart sounds Abdominal Exam Abdominal exam: Present soft, normal bowel sounds and hernia (Hernia of right abdomen, stable per patient); Absent distention, tenderness or guarding exam: Present deferred Extremities Exam Extremities exam: Present normal inspection and normal capillary refill; Absent full ROM (Lower extremity Limited due to chronic illness and debility), tenderness or edema Back Exam Back exam: Present normal inspection and CVA tenderness (R) Neurological Exam Neurological exam: Present alert and oriented X3 Psychiatric Psychiatric exam: Present normal affect and normal mood Skin Skin exam: Present warm, dry, intact and normal color; Absent rash Medical Decision Making Medical Records Medical records reviewed: Yes I reviewed the patient's medical records. Derrell Inquiry Pt receiving controlled substance: No Vital Signs: 11/04/23 20:34 11/04/23 21:00 11/04/23 22:22 Temperature 97.9 F 97.8 F Temperature Source Oral Oral Pulse Rate 76 74 Pulse Rate [Right] 79 Respiratory Rate 20 20 Blood Pressure 158/92 H 144/96 H Blood Pressure [Right Arm] 142/91 H Blood Pressure Mean 114 Blood Pressure Mean [Right Arm] 108 Blood Pressure Source Automatic Cuff Blood Pressure Source [Right Arm] Automatic Cuff Blood Pressure Position Sitting Blood Pressure Position [Right Arm] Supine 02 Sat by Pulse Oximetry 98 99 Oxygen Delivery Method Room Air Room Air Lab Data Lab Results 11/04/23 21:20: Urine Color Yellow, Urine Appearance Slightly cloudy, Urine pH 7.0, Ur Specific [place] 1.015, Urine Protein Negative, Urine Glucose (UA) Negative, Urine Ketones Negative, Urine Blood Negative, Urine Nitrate Negative, Urine Bilirubin Negative, Urine Urobilinogen 1.0, Ur Leukocyte Esterase 2+ A, Urine RBC None, Urine WBC 5-10, Ur Squamous Epith Cells None, Urine Bacteria Trace Orders (Tests/Meds): ED MEDICATIONS Discontinued Medications Generic Name Dose Route Start Last Admin Trade Name Juan PRN Reason Stop Dose Admin Diphenhydramine HCl 50 mg 11/04/23 20:43 11/04/23 20:53 Diphenhydramine 50mg/Ml Vial IV 11/04/23 20:44 Not Given ONCE ONE Ondansetron HCl 4 mg 11/04/23 20:43 11/04/23 20:54 Ondansetron 4mg/2ml Vial IV 11/04/23 20:44 Not Given ONCE ONE Ondansetron HCl 4 mg 11/04/23 20:59 11/04/23 21:21 Ondansetron 4mg/2ml Vial IV 11/04/23 21:00 Not Given ONCE ONE ORDERS Category Date Time Status Urinalysis and Microscopic Stat Lab 11/04/23 21:20 Completed Urine Culture Stat Micro 11/04/23 21:20 Received Medical Decision Narrative: Patient with history and exam per above presenting for evaluation of right flank pain which radiates into right groin Diagnoses considered include nephrolithiasis, UTI, pyelonephritis, intra- abdominal abnormality, electrolyte abnormality ED workup and treatment included: As above, however patient refused medication, refused laboratory workup, refused imaging stating he had just had them within the last week. As above I was able to review radiology report from CT abdomen p juliette from [facility] which was significant for bilateral kidney stones less than 5 mm without obstruction. Also noted findings consistent with cystitis on the CT report. Prior records reviewed and shows patient has finished course of Augmentin for prior UTI. Patient has numerous allergies to pain medications and antibiotics. Urinalysis was obtained by patient self cathing. Urinalysis with leukocytes, negative for nitrites. Given recent CT with cystitis, and leukocytes shared decision making was made with patient in which she has been requesting further antibiotics. Will prescribe ciprofloxacin for further antibiotic coverage, patient to follow-up with primary care. My clinical impression at this time is most consistent with UTI versus nephrolithiasis. Explained to patient that I was unable to rule out kidney stones being the cause of right flank pain and right groin pain without further workup patient indicated understanding. At this time medically clear for zander choudhury with outpatient follow-up. Given instructions to return to ED if symptoms worsen I discussed my clinical impression with patient and answered all questions. At this time, the evidence for any other entities in the differential is insufficient to warrant any further testing or ED observation. This was explained to the patient. The patient was advised that persistent or worsening symptoms require further evaluation. Critical Care Critical Care Time Critical Care Time: No
[2023-11-04 21:00] VITALS: BP 158/92; PULSE 76; O2SAT 99
--- NOTE | 2023-11-04 21:11 | PC.NURSE ---
2110: Pt. states he had multiple labs over the last week and a half. He had a CT 2 days ago. He decline IV, Morphine, and Zofran . He wants something for pain to last a week. He agrees with urine test as he has been treating a UTI. ER provider Dr. Thompson aware. Pt. not agreeing to CT at this time.
[2023-11-04 21:24] LABS: Microscopic, Urine URINE MICROSCOPIC (MICROSCOPIC)
[2023-11-04 21:29] LABS: Bilirubin,Urine Negative (Negative); Blood, Urine Negative (Negative); Color,Urine YELLOW (Yellow); Glucose,Urine (UA) Negative (Negative); Ketones,Urine Negative (Negative); Leukocyte Esterase,Urine 2+ (Negative); Nitrate,Urine Negative (Negative); Protein,Urine Negative (Negative); Specific Gravity, Urine 1.015 (1.005-1.030)
[2023-11-04 21:42] LABS: Appearance,Urine Slightly Cloudy (Clear)
[2023-11-04 21:45] LABS: Bacteria,Urine Trace /lpf
--- NOTE | 2023-11-04 22:06 | PC.NURSE ---
rounded on patient, he refuses CT and lab work, he states that I just had that 2 days ago all I want is my urine test results informed
--- NOTE | 2023-11-04 22:21 | PC.NURSE ---
2120: Pt. did a self cath and urine specimen obatined and sent to lab.
[2023-11-04 22:22] VITALS: BP 144/96; PULSE 74; RESP 20; TEMP 36.6; O2SAT 100
== END 2023-11-04 22:30 | disposition home or self-care (01) ==
PROVIDERS: Emergency Provider Student in an Organized Health Care Education/Training Program
DX: N39.0 Urinary tract infection, site not specified (principal); B96.5 Pseudomonas (aeruginosa) (mallei) (pseudomallei) as the cause of diseases classified elsewhere; R10.31 Right lower quadrant pain; M54.59 Other low back pain; N20.0 Calculus of kidney
CPT/HCPCS: 81001; 87086; 87088; 87186; 99283

== ENCOUNTER 2023-11-28 15:00 | Emergency (ER) | payer MEDICARE, SELFPAY ==
[2023-11-28 15:40] VITALS: BP 143/77; PULSE 69; RESP 20; TEMP 36.8; O2SAT 99; BMI 18.1
--- NOTE | 2023-11-28 15:55 | EXP.UTC ---
Discharge Plan Disposition Patient Disposition: Home, Self-Care Condition: Good Prescriptions Prescriptions: New amoxicillin-pot clavulanate 875-125 mg Tablet 1 tab PO Q12H 7 Days Qty: 14 0RF No Action levothyroxine 137 mcg tablet 137 mcg PO DAILY Patient Comments: TAKE 1 TABLET BY MOUTH ONCE DAILY carvedilol 3.125 mg tablet 1 mg PO BID Patient Comments: TAKE 1 TABLET BY MOUTH TWICE DAILY WITH MEALS prednisolone acetate 1 % drops,suspension 1 drp ophthalmic (eye) DAILY pantoprazole 40 mg tablet,delayed release (DR/EC) 40 mg PO DAILY Patient Comments: TAKE 1 TABLET BY MOUTH ONCE DAILY voriconazole 50 mg tablet 50 mg PO BID Patient Comments: TAKE 6 TABLETS BY MOUTH TWICE DAILY valsartan 40 mg tablet 40 mg PO DAILY Patient Comments: TAKE 1 TABLET BY MOUTH TWICE DAILY rosuvastatin 5 mg tablet 5 mg PO DAILY Patient Comments: TAKE 1 TABLET BY MOUTH ONCE DAILY prasugrel 10 mg tablet 10 mg PO DAILY Referrals Follow up/Referrals: Provider,Referral, MD [Primary Care Provider] - See instructions Activity Restrictions/Add. Instructions Additional Instructions/Restrictions: Continue to self cath as needed Start antibiotics Make sure to be eating yogurt or taking probiotic Follow up with your Family Doctor after your Urine culture is back to discuss further treatment if needed Straight to ER if any life threatening symptoms Clinical Impressions Clinical Impression: Acute UTI Instructions Patient Instructions: Amoxicillin and Clavulanic Acid, DI for Urinary Tract Infection (UTI) Print Language Print Language: Dominican Discharge ED Provider: Asiya Sampson [facility] [place] General Stated complaint: poss UtI Mode of Arrival: Ambulatory Source of Information: Patient Limitations: No Limitations Time Seen by Provider: 11/28/23 15:56 Description of Symptoms (Recalled from Triage Doc. by RN): PATIENT STATES HE NOTICED SEDIMENT IN HIS URINE AND IS CONCERNED FOR A UTI. DENIES ANY OTHER SYMPTOMS HEENT Symptoms (Recalled from RN notes): No Resp Symptoms (Recalled from RN notes): No Skin Symptoms (Recalled from RN notes): No MS Symptoms (Recalled from RN notes): No Functional Status (Recalled from RN notes): WNL History of Present Illness Provider Complaint: Patient states that he has been seen and treated several times for UTI last month and thought he was doing better States he has to self cath frequently throughout the day States he is not having any pain, fever or burning but noticed he was starting to have some white settlement in his urine and it is dark like he gets with UTI and wanted to get to it quickly before it got worse Related Data Home Medications ?Medication ?Instructions ?Recorded ?Confirmed carvedilol 3.125 mg tablet 1 mg PO BID 11/28/23 11/28/23 levothyroxine 137 mcg tablet 137 mcg PO DAILY 11/28/23 11/28/23 pantoprazole 40 mg tablet,delayed 40 mg PO DAILY 11/28/23 11/28/23 release prasugrel 10 mg tablet 10 mg PO DAILY 11/28/23 11/28/23 prednisolone acetate 1 % eye 1 drp ophthalmic (eye) DAILY 11/28/23 11/28/23 drops,suspension rosuvastatin 5 mg tablet 5 mg PO DAILY 11/28/23 11/28/23 valsartan 40 mg tablet 40 mg PO DAILY 11/28/23 11/28/23 voriconazole 50 mg tablet 50 mg PO BID 11/28/23 11/28/23 Previous Rx's ?Medication ?Instructions ?Recorded amoxicillin 875 mg-potassium 1 tab PO Q12H 7 days #14 tabs 11/28/23 clavulanate 125 mg tablet Allergies Allergy/AdvReac Type Severity Reaction Status Date / Time cefepime Allergy Verified 03/15/23 20:26 Worker's Comp Is this a Worker's Comp case?: No [facility] Disclaimer: The information contained in this section may have been updated after the patient was seen, as this information can be updated by other users. Surgical History (Updated 11/28/23 @ 16:00 by Margarita Magallon RN) Liver transplant recipient Social History Smoking Status: Never smoker alcohol intake: never substance use type: denies use current occupational status: employed Travel in the last 8 weeks: None household members: spouse housing: house current occupational exposures/hazards: No caffeine: Yes ROS Obtained: Yes All systems reviewed & no additional complaints except as documented and Yes Systems reviewed as appropriate & no additional complaints except as documented Constitutional Constitutional: Reports system reviewed and no additional complaints, except as documented and Reports as per HPI ENT Ears, Nose, Mouth, and Throat: Reports system reviewed and no additional complaints, except as documented and Reports as per HPI Cardiovascular Cardiovascular: Reports system reviewed and no additional complaints, except as documented and Reports as per HPI Respiratory Respiratory: Reports system reviewed and no additional complaints, except as documented and Reports as per HPI Gastrointestinal Gastrointestingal: Reports system reviewed and no additional complaints, except as documented and as per HPI Genitourinary Male Genitourinary: Reports system reviewed and no additional complaints, except as documented, Reports as per HPI and Reports other (dark urine with settlement hx recurrent UTI) Physical Exam General General appearance: alert and in no apparent distress ENT ENT exam: Present mucous membranes moist Respiratory Respiratory exam: Present normal lung sounds bilaterally; Absent respiratory distress or wheezes Cardiovascular Cardiovascular exam: Present regular rate, normal rhythm and normal heart sounds Neurological Exam Neurological exam: Present alert, oriented X3 and normal gait Medical Decision Making Derrell Inquiry Pt receiving controlled substance: No Derrell was queried for this patient: No Vital Signs: 11/28/23 15:40 Temperature 98.3 F Temperature Source Oral Pulse Rate [Left Brachial] 69 Respiratory Rate 20 Blood Pressure [Left Arm] 143/77 H Blood Pressure Mean [Left Arm] 99 Blood Pressure Source [Left Arm] Automatic Cuff Blood Pressure Position [Left Arm] Sitting 02 Sat by Pulse Oximetry 99 Oxygen Delivery Method Room Air Lab Data Lab results reviewed: Yes I reviewed the patient's lab results. Medical Decision Narrative: Patient has hx of recurrent UTI from self catheterizing discussed with pharmacy Urine dip shows leukocytes, recommended starting back on Augmentin, send urine for culture and follow up with PCP after culture back to discuss IV infusion of antibiotics if needed per the Urine culture patient agreeable to plan Patient has taken augmentin in the past without complications or reactions
[2023-11-28 16:05] LABS: Apearance,Urine Cloudy (Clear); Bilirubin,Urine Negative (Negative); Blood, Urine Trace (Negative); Color,Urine Yellow (Yellow); Glucose,Urine (UA) Negative (Negative); Ketones,Urine Negative (Negative); Protein,Urine 1+ (Negative); UTC Leukocyte Esterase,Urine 1+ (Negative); UTC Nitrate,Urine Negative (Negative); Urobilinogen,Urine 0.2 EU/dl (0.2)
[2023-11-28 16:13] VITALS: BP 143/77; PULSE 69; RESP 20; TEMP 36.8; O2SAT 99
== END 2023-11-28 16:16 | disposition home or self-care (01) ==
PROVIDERS: Emergency Provider Nurse Practitioner
DX: N39.0 Urinary tract infection, site not specified (principal); B95.2 Enterococcus as the cause of diseases classified elsewhere; B96.5 Pseudomonas (aeruginosa) (mallei) (pseudomallei) as the cause of diseases classified elsewhere
CPT/HCPCS: 81003; 87086; 87088; 87186; 99204; 99212; G0463

== ENCOUNTER 2024-02-22 17:55 | Inpatient (IN) | payer MEDICARE, SELFPAY ==
[2024-02-22 18:43] VITALS: BP 155/92; PULSE 64; RESP 18; TEMP 36.9; O2SAT 100; BMI 17.7
--- NOTE | 2024-02-22 18:45 | HMH.EDGENADL ---
Discharge Plan Disposition Patient Disposition: Admitted Prescriptions Prescriptions: No Action levothyroxine 137 mcg tablet 137 mcg PO DAILY Patient Comments: TAKE 1 TABLET BY MOUTH ONCE DAILY carvedilol 3.125 mg tablet 1 mg PO BID Patient Comments: TAKE 1 TABLET BY MOUTH TWICE DAILY WITH MEALS prednisolone acetate 1 % drops,suspension 1 drp ophthalmic (eye) DAILY pantoprazole 40 mg tablet,delayed release (DR/EC) 40 mg PO DAILY Patient Comments: TAKE 1 TABLET BY MOUTH ONCE DAILY voriconazole 50 mg tablet 50 mg PO BID Patient Comments: TAKE 6 TABLETS BY MOUTH TWICE DAILY valsartan 40 mg tablet 40 mg PO DAILY Patient Comments: TAKE 1 TABLET BY MOUTH TWICE DAILY rosuvastatin 5 mg tablet 5 mg PO DAILY Patient Comments: TAKE 1 TABLET BY MOUTH ONCE DAILY prasugrel 10 mg tablet 10 mg PO DAILY amoxicillin-pot clavulanate 875-125 mg Tablet 1 tab PO Q12H 7 Days Qty: 14 0RF Referrals Follow up/Referrals: Leo Estrella MD [Primary Care Provider] - See instructions Clinical Impressions Clinical Impression: Acute UTI, Fecal impaction, Acute constipation, History of liver transplant Instructions Patient Instructions: DI for Acute Abdominal Pain Print Language Print Language: Estonian Discharge ED Provider: Mandy Jose General Adult HPI <ANTHONY Lazo - Last Filed: 02/22/24 20:58> General Chief complaint: Abdominal Pain Stated complaint: constipated, liver transplant 2 yrs ago Time Seen by Provider: 02/22/24 18:45 History of Present Illness HPI narrative: Patient presents for evaluation of abdominal pain. Patient reports that he has had abdominal pain starting today. Patient has a complicated medical history in terms of his abdomen including a large ventral hernia, neurogenic bladder with self cathing, status post liver transplantation. Patient states that he has not had a full bowel movement in 6 days however he has been passing flatus with small amounts of stool. Patient states that he had an acute episode of abdominal pain just after self cath. He denies any fever chills hemoptysis hematochezia melena nausea vomiting diarrhea.. Related Data Home Medications ?Medication ?Instructions ?Recorded ?Confirmed carvedilol 3.125 mg tablet 1 mg PO BID 11/28/23 11/28/23 levothyroxine 137 mcg tablet 137 mcg PO DAILY 11/28/23 11/28/23 pantoprazole 40 mg tablet,delayed 40 mg PO DAILY 11/28/23 11/28/23 release prasugrel 10 mg tablet 10 mg PO DAILY 11/28/23 11/28/23 prednisolone acetate 1 % eye 1 drp ophthalmic (eye) DAILY 11/28/23 11/28/23 drops,suspension rosuvastatin 5 mg tablet 5 mg PO DAILY 11/28/23 11/28/23 valsartan 40 mg tablet 40 mg PO DAILY 11/28/23 11/28/23 voriconazole 50 mg tablet 50 mg PO BID 11/28/23 11/28/23 Previous Rx's ?Medication ?Instructions ?Recorded amoxicillin 875 mg-potassium 1 tab PO Q12H 7 days #14 tabs 11/28/23 clavulanate 125 mg tablet Allergies Allergy/AdvReac Type Severity Reaction Status Date / Time cefepime Allergy Verified 03/15/23 20:26 [facility] <ANTHONY Lazo - Last Filed: 02/22/24 20:58> [facility] Disclaimer: The information contained in this section may have been updated after the patient was seen, as this information can be updated by other users. Surgical History (Updated 02/22/24 @ 22:45 by Mandy Jose MD) Liver transplant recipient Social History Smoking Status: Never smoker alcohol intake: never substance use type: denies use current occupational status: employed Travel in the last 8 weeks: None household members: spouse housing: house current occupational exposures/hazards: No caffeine: Yes Other Medical History Have you received the Flu Vaccine for this season: Yes Have you received the Pneumonia Vaccine: Yes <ANTHONY Lazo - Last Filed: 02/22/24 20:58> ROS Obtained: Yes Systems reviewed as appropriate & no additional complaints except as documented Physical Exam <ANTHONY Lazo Last Filed: 02/22/24 20:58> General General appearance: alert and in no apparent distress Respiratory Respiratory exam: Present normal lung sounds bilaterally Cardiovascular Cardiovascular exam: Present regular rate Neurological Exam Neurological exam: Present alert and oriented X3 Medical Decision Making <ANTHONY Lazo Last Filed: 02/22/24 20:58> Medical Records Medical records reviewed: Yes I reviewed the patient's medical records. Screening: Per USPSTF and CDC recommendations, given the prevalence of disease in our region, it is our hospital?s policy to screen for HIV and viral Hepatitis for all patients aged 18 and over and those with ongoing risk factors. Derrell Inquiry Pt receiving controlled substance: No Vital Signs: 02/22/24 18:43 02/22/24 18:48 02/22/24 19:00 Temperature 98.5 F Temperature Source Oral Pulse Rate 62 57 L Pulse Rate [Right Radial] 64 Respiratory Rate 18 Blood Pressure 155/92 H 151/95 H Blood Pressure [Right Arm] 155/92 H Blood Pressure Mean [Right Arm] 113 Blood Pressure Source [Right Arm] Automatic Cuff Blood Pressure Position [Right Arm] Sitting 02 Sat by Pulse Oximetry 100 99 100 Oxygen Delivery Method Room Air Lab Data Lab results reviewed: Yes I reviewed the patient's lab results. Lab Results 02/22/24 20:30: WBC 9.2, RBC 4.26 L, Hgb 12.8 L, Hct 40.1 L, MCV 94.1 H, MCH 30.0, MCHC 31.9, RDW 14.3, Plt Count 265, MPV 9.2, Neut % (Auto) 76.7, Lymph % (Auto) 16.8, [place] % (Auto) 5.3, Eos % (Auto) 0.8, Baso % (Auto) 0.3, Neut # (Auto) 7.1, Lymph # (Auto) 1.6, [place] # (Auto) 0.5, Eos # (Auto) 0.1, Baso # (Auto) 0.0, Sodium 134 L, Potassium 3.3 L, Chloride 97 L, Carbon Dioxide 31 H, Anion Gap 9.3, BUN 25 H, Creatinine 1.00, Estimated Creat Clear 50, Estimated GFR 73, Est GFR ( Amer) 88, Glucose 108 H, Calcium 9.1, Magnesium 1.8, Total Bilirubin 1.6 H, AST 34, ALT 29, Alkaline Phosphatase 224 H, Total Protein 6.6, Albumin 4.0, Globulin 2.6, Albumin/Globulin Ratio 1.5 02/22/24 21:26: Urine Color Dark yellow, Urine Appearance Slightly cloudy, Urine pH 7.0, Ur Specific [place] 1.010, Urine Protein 1+ A, Urine Glucose (UA) Negative, Urine Ketones Negative, Urine Blood Trace-i, Urine Nitrate Positive A, Urine Bilirubin Negative, Urine Urobilinogen 1.0, Ur Leukocyte Esterase 2+ A, Urine RBC Occasional, Urine WBC 50-100, Ur Squamous Epith Cells Occasional, Urine Bacteria Trace 02/22/24 21:49: Lactate 1.2 02/22/24 20:30 02/22/24 20:30 Orders (Tests/Meds): ED MEDICATIONS Generic Name Dose Route Start Last Admin Trade Name Freq PRN Reason Stop Dose Admin Piperacillin Sod/Tazobactam 50 mls @ 100 mls/hr 02/22/24 22:40 Sod 3.375 gm/ Sodium Chloride IV 02/22/24 23:09 ONCE ONE Miscellaneous 1 each 02/22/24 22:45 Vancomycin Consult Request NOTAPPLIC 03/23/24 22:44 [facility]ULT [facility] Discontinued Medications Generic Name Dose Route Start Last Admin Trade Name Freq PRN Reason Stop Dose Admin Sodium Chloride 1,000 mls @ 999 mls/hr 02/22/24 19:01 02/22/24 19:11 Sod Chlor 0.9% 1000ml Bag IV 02/22/24 20:01 999 mls/hr .Q1H1M ONE Administration ORDERS Category Date Time Status CT abdomen pelvis wo con Stat Cat Scan 02/22/24 19:01 Taken CBC w/Auto Diff [Complete Blood Count Auto Diff] Stat Lab 02/22/24 20:30 Completed CMP [Comprehensive Metabolic Panel] Stat Lab 02/22/24 20:30 Completed Lactic Acid Stat Lab 02/22/24 21:49 Completed Magnesium Stat Lab 02/22/24 20:30 Completed UA [Urinalysis and Microscopic] Stat Lab 02/22/24 21:26 Completed Urine Culture Stat Micro 02/22/24 21:26 Received Medical Decision Narrative: In summary patient is a 73-year-old male who presents to the emergency department for evaluation of kirill pain. Patient is hemodynamically stable upon arrival, afebrile. Physical exam is significant for a very soft abdomen with minimal tenderness to palpation primarily suprapubic area. Bowel sounds normal active. Patient does have a very large right-sided ventral hernia that is very [place] bowel is soft. There is no flank pain to percussion.. Differential diagnosis includes constipation versus cystitis versus bladder outlet obstruction etc. Initial workup will be conducted with hematologic labs urinalysis CT scan abdomen pelvis.. Initial interventions include Tylenol Toradol. Initial workup ordered and pending at the time of handoff to Dr. Jose at 2100 hrs. <Mandy Jose MD - Last Filed: 02/22/24 22:45> Vital Signs: 02/22/24 18:43 02/22/24 18:48 02/22/24 19:00 Temperature 98.5 F Temperature Source Oral Pulse Rate 62 57 L Pulse Rate [Right Radial] 64 Respiratory Rate 18 Blood Pressure 155/92 H 151/95 H Blood Pressure [Right Arm] 155/92 H Blood Pressure Mean [Right Arm] 113 Blood Pressure Source [Right Arm] Automatic Cuff Blood Pressure Position [Right Arm] Sitting 02 Sat by Pulse Oximetry 100 99 100 Oxygen Delivery Method Room Air Lab Data Lab results reviewed: Yes I reviewed the patient's lab results. Lab Results 02/22/24 20:30: WBC 9.2, RBC 4.26 L, Hgb 12.8 L, Hct 40.1 L, MCV 94.1 H, MCH 30.0, MCHC 31.9, RDW 14.3, Plt Count 265, MPV 9.2, Neut % (Auto) 76.7, Lymph % (Auto) 16.8, [place] % (Auto) 5.3, Eos % (Auto) 0.8, Baso % (Auto) 0.3, Neut # (Auto) 7.1, Lymph # (Auto) 1.6, [place] # (Auto) 0.5, Eos # (Auto) 0.1, Baso # (Auto) 0.0, Sodium 134 L, Potassium 3.3 L, Chloride 97 L, Carbon Dioxide 31 H, Anion Gap 9.3, BUN 25 H, Creatinine 1.00, Estimated Creat Clear 50, Estimated GFR 73, Est GFR ( Amer) 88, Glucose 108 H, Calcium 9.1, Magnesium 1.8, Total Bilirubin 1.6 H, AST 34, ALT 29, Alkaline Phosphatase 224 H, Total Protein 6.6, Albumin 4.0, Globulin 2.6, Albumin/Globulin Ratio 1.5 02/22/24 21:26: Urine Color Dark yellow, Urine Appearance Slightly cloudy, Urine pH 7.0, Ur Specific [place] 1.010, Urine Protein 1+ A, Urine Glucose (UA) Negative, Urine Ketones Negative, Urine Blood Trace-i, Urine Nitrate Positive A, Urine Bilirubin Negative, Urine Urobilinogen 1.0, Ur Leukocyte Esterase 2+ A, Urine RBC Occasional, Urine WBC 50-100, Ur Squamous Epith Cells Occasional, Urine Bacteria Trace 02/22/24 21:49: Lactate 1.2 Orders (Tests/Meds): ED MEDICATIONS Generic Name Dose Route Start Last Admin Trade Name Freq PRN Reason Stop Dose Admin Piperacillin Sod/Tazobactam 50 mls @ 100 mls/hr 02/22/24 22:40 Sod 3.375 gm/ Sodium Chloride IV 02/22/24 23:09 ONCE ONE Miscellaneous 1 each 02/22/24 22:45 Vancomycin Consult Request NOTAPPLIC 03/23/24 22:44 [facility] Discontinued Medications Generic Name Dose Route Start Last Admin Trade Name Freq PRN Reason Stop Dose Admin Sodium Chloride 1,000 mls @ 999 mls/hr 02/22/24 19:01 02/22/24 19:11 Sod Chlor 0.9% 1000ml Bag IV 02/22/24 20:01 999 mls/hr .Q1H1M ONE Administration ORDERS Category Date Time Status CT abdomen pelvis wo con Stat Cat Scan 02/22/24 19:01 Taken CBC w/Auto Diff [Complete Blood Count Auto Diff] Stat Lab 02/22/24 20:30 Completed CMP [Comprehensive Metabolic Panel] Stat Lab 02/22/24 20:30 Completed Lactic Acid Stat Lab 02/22/24 21:49 Completed Magnesium Stat Lab 02/22/24 20:30 Completed UA [Urinalysis and Microscopic] Stat Lab 02/22/24 21:26 Completed Urine Culture Stat Micro 02/22/24 21:26 Received Medical Decision Narrative: In summary patient is a 73-year-old male who presents to the emergency department for evaluation of kirill pain. Patient is hemodynamically stable upon arrival, afebrile. Physical exam is significant for a very soft abdomen with minimal tenderness to palpation primarily suprapubic area. Bowel sounds normal active. Patient does have a very large right-sided ventral hernia that is very [place] bowel is soft. There is no flank pain to percussion.. Differential diagnosis includes constipation versus cystitis versus bladder outlet obstruction etc. Initial workup will be conducted with hematologic labs urinalysis CT scan abdomen pelvis.. Initial interventions include Tylenol Toradol. Initial workup ordered and pending at the time of handoff to Dr. Jose at [address] Jose I took over from Saud Arango primarily around [address] scans and lab analysis. Patient's urinalysis was consistent for urinary tract infection versus colonization. Patient CT scan was performed I personally interpreted which shows extensive and large amount of stool consistent with constipation very large stool ball consistent with rectal impaction also there appears to be bladder wall thickening consistent with cystitis. I believe the majority of patient's symptoms are secondary to decreased bladder emptying secondary to severe constipation and he will need at a minimum right now an enema but likely a very aggressive bowel regimen to improve his stool output to improve his bladder emptying. Likely he is having urinary stasis and with the bladder wall thickening in the discomfort with his lower abdomen after self cathing this is consistent with urinary tract infection. 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 He is immune compromised chronically had a liver transplant a year and a half ago but his admission today will not be related to his transplant. I discussed with him the risk and benefits of admission versus discharge however given the fact that he has had such a difficult time at home with his bowel movements and I believe his constipation is likely contributory to his bladder emptying I feel that this needs to be managed inpatient. He and his at the bedside agree to this plan and I will discuss the case with hospital medicine and admit for further evaluation and management. Critical Care <ANTHONY Lazo - Last Filed: 02/22/24 20:58> Critical Care Time Critical Care Time: No
[2024-02-22 18:48] VITALS: BP 155/92; PULSE 62; O2SAT 99
[2024-02-22 19:00] VITALS: BP 151/95; PULSE 57; O2SAT 100
--- NOTE | 2024-02-22 19:01 | CT_ITS ---
PROCEDURE INFORMATION: Exam: CT Abdomen And Pelvis Without Contrast Exam date and time: 02/22/2024 9:41 PM Age: 73 years old Clinical indication: Abdominal pain; Patient HX: HX of constipation; Additional info: Abdominal pain, S/P liver tx TECHNIQUE: Imaging protocol: Computed tomography of the abdomen and pelvis without contrast. Radiation optimization: All CT scans at this facility use at least one of these dose optimization techniques: automated exposure control; mA and/or kV adjustment per patient size (includes targeted exams where dose is matched to clinical indication); or iterative reconstruction. COMPARISON: CR XR HIP LT 2-3V W/PELVIS 01/30/2023 10:08 AM FINDINGS: Lungs: Mild tree-in-bud nodular infiltrates within the dependent portion of the right lower lobe consistent with mild aspiration pneumonitis. Minimal tree-in-bud nodules within the lingula. Coronary arteries: Three-vessel coronary artery calcifications. Liver: The liver appears within normal limits. Gallbladder and biliary ducts: There has been a cholecystectomy. Internal biliary stent identified. Expected pneumobilia identified. Pancreas: The pancreas is normal. Spleen: The spleen is normal. Adrenal glands: The adrenal glands appear within normal limits. Kidneys and ureters: Mild bilateral renal hydronephrosis and hydroureter. This would also explain the hydronephrosis and hydroureter. There are couple of nonobstructing kidney stones the largest within the right kidney measures 3 mm within the left kidney measures 4 mm. Stomach and bowel: Severe retained stool diffusely with massive distension of the rectal lumen. Rectum is distended 9.5 cm. Appendix: No evidence of appendicitis. Intraperitoneal space: Unremarkable. No free air. No significant fluid collection. Vasculature: Moderate atherosclerotic calcifications of the aorta. Lymph nodes: Unremarkable. No enlarged lymph nodes. Urinary bladder: Mild trabeculated bladder wall probably due to chronic bladder outlet obstruction. Reproductive: Unremarkable as visualized. Bones/joints: Multiple old compression fractures lumbar spine. Soft tissues: Moderate diffuse anasarca. IMPRESSION: 1. Mild tree-in-bud nodular infiltrates within the dependent portion of the right lower lobe consistent with mild aspiration pneumonitis. Minimal tree-in-bud nodules within the lingula. 2. Mild bilateral renal hydronephrosis and hydroureter. Mild trabeculated bladder wall probably due to chronic bladder outlet obstruction. This would also explain the hydronephrosis and hydroureter. 3. Severe retained stool diffusely with massive distension of the rectal lumen. Rectum is distended 9.5 cm. 4. There are couple of nonobstructing kidney stones the largest within the right kidney measures 3 mm within the left kidney measures 4 mm. 5. Moderate diffuse anasarca. 6. Multiple old compression fractures lumbar spine.
[2024-02-22] MEDS: 0.9 % SODIUM CHLORIDE 1000ML 1,000 ML 999 ML IV (19:11)
[2024-02-22 20:46] LABS: Basophils % 0.3 % (0.1-2.0); Eosinophils # 0.1 K/mm3 (0.0-0.4); Eosinophils % 0.8 % (0.1-12.0); Hematocrit 40.1 % (42.0-52.0); Hemoglobin 12.8 g/dL (14.1-18.0); Lymphocytes # 1.6 K/mm3 (0.7-4.5); Lymphocytes % 16.8 % (10-50); Mean Corpuscular HGB Conc 31.9 g/dL (31.8-35.4); Mean Corpuscular Volume 94.1 fl (80-94); Mean Platelet Volume 9.2 fl (7.4-10.4); Monocytes # 0.5 K/mm3 (0.1-1.0); Monocytes % 5.3 % (1.7-9.3); Neutrophils # 7.1 K/mm3 (1.8-7.8); Neutrophils % 76.7 % (37.0-80.0); Platelet Count 265 K/mm3 (142-424); Red Blood Count 4.26 M/mm3 (4.60-6.20); Red Cell Distribution Width 14.3 % (11.5-17.5); White Blood Count 9.2 K/mm3 (4.8-10.8)
[2024-02-22 21:11] LABS: Chloride 97 mmol/L (98-107); Potassium 3.3 mmoL/L (3.5-5.1); Sodium 134 mmol/L (136-145)
[2024-02-22 21:13] LABS: Blood Urea Nitrogen 25 mg/dl (9-20); Creatinine Clearance Estimated 50 mL/min (50-200); Estimated Glomerular Filt Rate 73 ml/min (>60); GFR (African American) 88 ML/MIN (>60)
[2024-02-22 21:14] LABS: Alanine Aminotransferase 29 U/L (12-78); Albumin/Globulin Ratio 1.5 (1.1-1.8); Alkaline Phosphatase 224 U/L (38-126); Anion Gap 9.3 mEq/L (5-15); Aspartate Amino Transferase 34 U/L (17-59); Bilirubin,Total 1.6 mg/dl (0.2-1.3); Calcium 9.1 mg/dl (8.4-10.2); Carbon Dioxide 31 mmol/L (22.0-30.0); Globulin 2.6 g/dL (1.3-3.2); Glucose 108 mg/dl (74-100); Magnesium 1.8 mg/dl (1.6-2.3); Total Protein,Serum 6.6 g/dl (6.3-8.2)
[2024-02-22 21:34] LABS: Microscopic, Urine URINE MICROSCOPIC (MICROSCOPIC)
--- NOTE | 2024-02-22 21:35 | PC.NURSE ---
pt straight cathed with sterile technique. 800ml voided. sterile urine sample sent
[2024-02-22 21:38] LABS: Bilirubin,Urine Negative (Negative); Blood, Urine TRACE-I (Negative); Glucose,Urine (UA) Negative (Negative); Ketones,Urine Negative (Negative); Leukocyte Esterase,Urine 2+ (Negative); Nitrate,Urine POSITIVE (Negative); Protein,Urine 1+ (Negative)
[2024-02-22 22:03] LABS: Lactic Acid 1.2 mmol/L (0.7-2.1)
[2024-02-22 22:03] LABS: Appearance,Urine Slightly Cloudy (Clear); Color,Urine Dark Yellow (Yellow)
[2024-02-22 22:09] LABS: RBC,Urine Occasional #/hpf (0-3); WBC,Urine 50-100 #/hpf (0-3)
[2024-02-22 22:10] LABS: Bacteria,Urine Trace /lpf; Squamous Epithelial Cell,Urine Occasional #/hpf (0-5)
[2024-02-22] MEDS: PIPERACILLIN/TAZO 3.375 GM in 0.9 % SODIUM CHLORIDE 50 ML IV (23:37)
[2024-02-22] MEDS: VANCOMYCIN HCL 1,000 MG in 0.9 % SODIUM CHLORIDE 250 ML 125 MG IV (23:37)
[2024-02-22 23:54] VITALS: BP 151/95; PULSE 57; RESP 16; TEMP 36.9; O2SAT 100
[2024-02-23] VITALS (7 sets, daily range): BP systolic 134–160; BP diastolic 76–91; PULSE 62–69; RESP 12–20; TEMP 36.3–36.6; O2SAT 97–100; BMI 18.4
--- NOTE | 2024-02-23 00:32 | PC.NURSE ---
Patient arrived to floor via stretcher from ED at 00:12.
--- NOTE | 2024-02-23 00:41 | P.HP_ITS ---
<Statement entered by Cipriano Golden MD - 02/25/24 14:27> I personally evaluated patient and agree with plan of care as outlined by [employer] below. 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 He is ended up with a neurogenic bladder having to in and out cath himself. It was noted that he came in due to severe constipation for more than 6 days without a bowel movement. He did an In-N-Out cath here at the emergency room but was found to still have several 100 cc of urine left with a very thick bladder wall. Neurogenic bladder has been chronic but this may be worsening to the point that it is keeping him from being able to have a bowel movement. He has given a history of having constipation in the past but MiraLAX and other products have taken care of it. He believes this is the first time he has had to come into the emergency room due to constipation. And it is giving him some abdominal pain. Scan showing extensive amount of stool throughout the bowel but the colon is definitely filled Also patient has been treated recently for Pseudomonas urinary tract infection. He also shows UTI positive leukocytes positive nitrites tonight. Plan is for the ER to try fleets enema to help try to clear her mouth and will put him upst airs I will then use different products to try to finish cleaning him out. If unsuccessful I have also put in a consult for general surgery in case we need to mechanically disimpact him. Presently the patient is showing no distress. [facility] Disclaimer: The information contained in this section may have been updated after the patient was seen, as this information can be updated by other users. Medical History (Updated 02/23/24 @ 00:50 by Kyle Flores APRN) Acute constipation H/O urinary retention Closed left femoral fracture Acute hyperkalemia Fall Sepsis Cough Acute UTI Urinary tract infection UTI (urinary tract infection) Surgical History (Updated 02/23/24 @ 00:48 by Kyle Flores APRN) Liver transplant recipient Social History Smoking Status: Never smoker alcohol intake: never substance use type: denies use current occupational status: employed Travel in the last 8 weeks: None household members: spouse housing: house current occupational exposures/hazards: No caffeine: Yes Other Medical History Have you received the Flu Vaccine for this season: Yes Have you received the Pneumonia Vaccine: Yes Review of Systems Review of Systems Review of systems:: pertinent systems reviewed and negative unless documented below Constitutional Constitutional: Reports as per HPI and Reports weakness Comments: Patient has come in to the emergency room due to the fact of not having a bowel movement for 6 days having some mild to moderate abdominal discomfort related to that Eyes Eyes: Reports as per HPI ENT Ears, Nose, Mouth, and Throat: Reports as per HPI *Cardiovascular Cardiovascular: Reports as per HPI *Respiratory Respiratory: Reports as per HPI *Gastrointestinal Gastrointestinal: Reports as per HPI *Genitourinary Genitourinary: Reports as per HPI *Musculoskeletal Musculoskeletal: Reports as per HPI Integumentary/Breasts Skin/Breast: Reports as per HPI *Neurologic Neurologic: Reports as per HPI and Reports weakness Psychiatric Psychiatric: Reports as per HPI Comments: Very friendly outspoken gentleman. Tells a good story of his times in [facility] in [facility] Endocrine Endocrine: Reports system reviewed and no additional complaints, except as documented Hematologic/Lymphatic Hematologic/Lymphatic: Reports system reviewed and no additional complaints, except as documented Allergic/Immunologic Allergic/Immunologic: Reports system reviewed and no additional complaints, except as documented Meds Home Medications and Allergies Home Medications ?Medication ?Instructions ?Recorded ?Confirmed ?Type amoxicillin 875 mg-potassium 1 tab PO Q12H 7 days #14 tabs 11/28/23 Rx clavulanate 125 mg tablet carvedilol 3.125 mg tablet 1 mg PO BID 11/28/23 11/28/23 History levothyroxine 137 mcg tablet 137 mcg PO DAILY 11/28/23 11/28/23 History pantoprazole 40 mg tablet,delayed 40 mg PO DAILY 11/28/23 11/28/23 History release prasugrel 10 mg tablet 10 mg PO DAILY 11/28/23 11/28/23 History prednisolone acetate 1 % eye 1 drp ophthalmic (eye) DAILY 11/28/23 11/28/23 History drops,suspension rosuvastatin 5 mg tablet 5 mg PO DAILY 11/28/23 11/28/23 History valsartan 40 mg tablet 40 mg PO DAILY 11/28/23 11/28/23 History voriconazole 50 mg tablet 50 mg PO BID 11/28/23 11/28/23 History New Prescriptions to Start Prescriptions: Allergies Allergy/AdvReac Type Severity Reaction Status Date / Time cefepime Allergy Verified 03/15/23 20:26 Exam Data for Last 24 hours Vital signs and Labs for Last 24 Hours: Temp Pulse Resp BP Pulse Ox O2 Del Method 98.5 F 57 L 16 151/95 H 100 Room Air 02/22/24 23:54 02/22/24 23:54 02/22/24 23:54 02/22/24 23:54 02/22/24 19:00 02/22/24 23:54 Laboratory Results - last 24 hr 02/22/24 20:30: WBC 9.2, RBC 4.26 L, Hgb 12.8 L, Hct 40.1 L, MCV 94.1 H, MCH 30.0, MCHC 31.9, RDW 14.3, Plt Count 265, MPV 9.2, Neut % (Auto) 76.7, Lymph % (Auto) 16.8, [place] % (Auto) 5.3, Eos % (Auto) 0.8, Baso % (Auto) 0.3, Neut # (Auto) 7.1, Lymph # (Auto) 1.6, [place] # (Auto) 0.5, Eos # (Auto) 0.1, Baso # (Auto) 0.0, Sodium 134 L, Potassium 3.3 L, Chloride 97 L, Carbon Dioxide 31 H, Anion Gap 9.3, BUN 25 H, Creatinine 1.00, Estimated Creat Clear 50, Estimated GFR 73, Est GFR ( Amer) 88, Glucose 108 H, Calcium 9.1, Magnesium 1.8, Total Bilirubin 1.6 H, AST 34, ALT 29, Alkaline Phosphatase 224 H, Total Protein 6.6, Albumin 4.0, Globulin 2.6, Albumin/Globulin Ratio 1.5 02/22/24 21:26: Urine Color Dark yellow, Urine Appearance Slightly cloudy, Urine pH 7.0, Ur Specific [place] 1.010, Urine Protein 1+ A, Urine Glucose (UA) Negative, Urine Ketones Negative, Urine Blood Trace-i, Urine Nitrate Positive A, Urine Bilirubin Negative, Urine Urobilinogen 1.0, Ur Leukocyte Esterase 2+ A, Urine RBC Occasional, Urine WBC 50-100, Ur Squamous Epith Cells Occasional, Urine Bacteria Trace 02/22/24 21:49: Lactate 1.2 I & O for Last 24 hours: Intake & Output 02/20/24 02/21/24 02/22/24 02/23/24 05:59 05:59 05:59 05:59 Weight 120 lb Radiology Reports for the Last 24 Hours: Large amount of stool noted in the colon,, bladder even after self cath is still very large. It looks to be backing up some type of fluid into both kidneys some mild hydronephrosis and dilation of the ureters. Constitutional Constitutional: no acute distress *Routine HEENT Exam Head: Present normocephalic and atraumatic Eye: Present EOMI and PERRL ENT: Present mucous membranes moist *Routine Neck Exam Neck: Present supple Comments: Moves well in the bed turns his head either direction shows no pain Routine Chest/Breast/Axilla Exam Comments: No lymphadenopathy or pain or contusions found to the chest wall *Routine Respiratory Exam Respiratory: Present CTA bilaterally, normal respiratory effort, able to speak in complete sentences and symmetric chest movement Comments: No significant findings on lung sounds *Routine Cardiovascular Exam Cardiovascular: Present RRR and murmur Comments: No significant edema noted., *Routine Abdominal Exam Abdominal: Present soft, distended, obese and hernia (Large hernia noted) *Routine Rectal Exam Rectal:: deferred *Routine Genitalia Exam Genitalia:: deferred *Routine Extremities Exam Extremities: Present full ROM Comments: Patient has a history of falls. Did fracture her hip wants but he is able to move get up and stand. Routine Back/Spine/Pelvis Exam Comments: Patient had no complaints of back pain. But examining old films show significant degeneration's possible compression fractions lumbar spine they all appear to be old *Routine Skin Exam Skin: Present intact, dry and warm *Routine Neurological Exam Neurological: Present alert, oriented X3 and CN II-XII intact Routine Psychiatric Exam Psychiatric: Present normal affect, normal thought process, cooperative, good insight and good judgment Comments: Patient shows no psychiatric illness whatsoever great person to talk to good storyteller, is in room they both seem to be quite a good couple H&P: Result Impressions 1. Chronic medical problems with liver replacement. Now with neurogenic bladder. That may be causing his constipation to worsen. As he is not able to completely empty the bladder with self-catheterization. 2. UTI that may be chronic but positive nitrites and positive leukocytes will treat Imaging and Cardiology CT scan - abdomen: Status: image reviewed by me Additional comments: Shows that the bladder has a very thickened wall that it is probably not emptying completely whenever self catheterization is done leading to some backup of fluid into both kidneys dilation of ureters. This may also be causing constipation which has been a problem in the past to worsen Assessment and Plan *Assessment and plan (1) Constipation in male: Status: Acute Category: Medical Code(s): K59.00 - Constipation, unspecified (2) Fecal impaction: Status: Acute Category: Medical Code(s): K56.41 - Fecal impaction (3) Neurogenic bladder: Status: Acute Category: Medical Code(s): N31.9 - Neuromuscular dysfunction of bladder, unspecified (4) Acute UTI: Status: Acute Category: Medical Code(s): N39.0 - Urinary tract infection, site not specified (5) Self-catheterizes urinary bladder: Status: Acute Category: Medical Code(s): Z78.9 - Other specified health status (6) History of liver transplant: Status: Acute Category: Surgical Code(s): Z94.4 - Liver transplant status (7) Immunosuppressed status: Status: Acute Category: Medical Code(s): D84.9 - Immunodeficiency, unspecified (8) Ventral hernia without obstruction or gangrene: Status: Acute Category: Medical Code(s): K43.9 - Ventral hernia without obstruction or gangrene Plan 1. I have reviewed the patient's labs and scans and talked with the ER provider that was taking care of him. I do agree that they will then try to do fleets enema in the emergency room, then we will move upstairs to try to finish clearing the bowel. If not we will have general surgery to evaluate the patient if some form of manual disimpaction is needed. 2. Neurogenic bladder with self-catheterization and chronic UTI. Will treat urinary tract infection while in the hospital. May need evaluation for pubic catheter versus Gregory catheter as if the bladder is so thickened that is not krystin it may be causing hydronephrosis of the ureters and might harm the kidneys here in the future. But might be causing the increase in constipation problems. 3. Immune suppression related to liver transplant., Patient was noted exposed to agent orange in [place]. 4. Patient is well-hydrated will keep n.p.o. until morning will not start IV fluids at this point in time that way general surgery could see him.
--- NOTE | 2024-02-23 04:00 | EXP.EVENT.NO ---
04:00 spoke with the nurse taking care of the patient on the floor. She has spoken with the patient as he did in and out cath but there was still a large amount of residual so Gregory catheter has been placed. Patient is resting comfortably.. He did have a small bowel movement after his very large bowel movement hopefully that by decompressing this bladder, that this will help to continue being able to clear his bowels.. Asked the nurse also after he is rested for a while with the Gregory and to check for residual urine. We would hope that it would be 0 but the bladder looks extremely thick on the scans. Question to whether it is still taking up space and not completely emptying related to his neurogenic problems..
--- NOTE | 2024-02-23 04:37 | PC.NURSE ---
Pt admitted to M/S with bowel impaction and UTI. Pt is A/O x 4. He has history of CVA so he requires assist with all ADLS and is bedfast at this point. His usual state is chairfast/wheelchair but pt cannot tolerate sitting up at present. Pt was given enema whille in ER with no results. Pt has since had a large and a med soft BM. Pt also with neurogenic bladder and usually self caths 4-6 times daily. Pt is unable to void at all on his own. F/C inserted, 16 F with 10 ml balloon, pt tolerated well. Pt maintaining 02 sats above 90 on RA. BP slightly elevated
[2024-02-23] MEDS: POLYETHYLENE GLYCOL 3350 17 GM PACKET PO (08:10)
[2024-02-23] MEDS: ENOXAPARIN 40MG/0.4ML SYRINGE 40 MG SUBCUT (08:10)
[2024-02-23] MEDS: ASPIRIN EC 81MG TABLET 81 MG PO (08:10)
[2024-02-23] MEDS: predniSONE 5MG TAB 5 MG PO (08:10)
[2024-02-23] MEDS: DOCUSATE SODIUM 100 MG CAPSULE PO (08:10)
[2024-02-23] MEDS: MINERAL OIL ENEMA 133ML 133 ML RC ×2 (08:40→18:14)
[2024-02-23] MEDS: PIPERCILLIN/TAZO 3.375 GM in 0.9 % SODIUM CHLORIDE 50 ML IV ×3 (08:40→23:48)
[2024-02-23] MEDS: [UNRECOGNIZED DRUG - OTHER] 25 EACH PO ×2 (09:56→20:46)
[2024-02-23] MEDS: [UNRECOGNIZED DRUG - OTHER] 250 EACH PO ×2 (09:56→20:46)
[2024-02-23] MEDS: VALSARTAN 40 MG 40 EACH PO ×2 (09:56→20:47)
[2024-02-23] MEDS: POSACONAZOLE 100 MG 100 EACH PO (10:01)
[2024-02-23] MEDS: MAGNESIUM SULFATE IN WATER 2 GM/50 ML PIGGYBACK IV (10:45)
[2024-02-23] MEDS: POTASSIUM CHLORIDE 20MEQ TAB 40 MEQ PO ×2 (10:45→14:40)
--- NOTE | 2024-02-23 12:40 | EXP.SURG.CON ---
History of Present Illness *Admission Date: 02/23/24 *Reason for visit:: Fecal impaction *History of present illness: Patient is a 73-year-old male who has undergone previous liver transplantation about 1-1/2 years ago due to cirrhosis at [facility]. He has had issues surgically and medically after his transplant including stroke, PR, abdominal defect development. He has a history of neurogenic bladder having to perform in and out self-catheterization. He states that he has a longstanding history of constipation. He presented to the emergency department due to significant constipation and 6 days of obstipation with associated abdominal pain. Evaluation in the emergency department revealed urinary tract infection. CT scan revealed severe retained stool diffusely with massive distention of the rectal lumen to 9.5 cm. Plan was for admission for inpatient management for bowel regimen. General surgical consultation was obtained for possible manual disimpaction. [facility] Disclaimer: The information contained in this section may have been updated after the patient was seen, as this information can be updated by other users. Medical History Acute constipation H/O urinary retention Closed left femoral fracture Acute hyperkalemia Fall Sepsis Cough Acute UTI Urinary tract infection UTI (urinary tract infection) Surgical History Liver transplant recipient Social History (Updated 02/23/24 @ 01:51 by Aylin Sykes RN) Smoking Status: Never smoker alcohol intake: never substance use type: denies use current occupational status: employed Travel in the last 8 weeks: None household members: spouse housing: house current occupational exposures/hazards: No caffeine: Yes Review of Systems Constitutional Constitutional: Reports weakness *Neurologic Neurologic: Reports as per HPI and Reports weakness Meds Home Medications and Allergies Home Medications ?Medication ?Instructions ?Recorded ?Confirmed ?Type carvedilol 3.125 mg tablet 3.125 mg PO BID 11/28/23 02/23/24 History levothyroxine 137 mcg tablet 137 mcg PO DAILY 11/28/23 02/23/24 History pantoprazole 40 mg tablet,delayed 40 mg PO DAILY 11/28/23 02/23/24 History release prasugrel 10 mg tablet 10 mg PO DAILY 11/28/23 02/23/24 History rosuvastatin 5 mg tablet 5 mg PO DAILY 11/28/23 02/23/24 History valsartan 40 mg tablet 40 mg PO BID 11/28/23 02/23/24 History aspirin 81 mg tablet 81 mg PO DAILY 02/23/24 02/23/24 History brimonidine 0.2 % eye drops 1 drp Eye-Right TID 02/23/24 02/23/24 History cyclosporine 25 mg capsule 25 mg PO BID 02/23/24 02/23/24 History mycophenolate mofetil 250 mg 250 mg PO BID 02/23/24 02/23/24 History capsule posaconazole 100 mg tablet,delayed 300 mg PO DAILY 02/23/24 02/23/24 History release prednisone 5 mg tablet 5 mg PO DAILY 02/23/24 02/23/24 History timolol maleate 0.5 % eye drops 1 drp Eye-Right BID 02/23/24 02/23/24 History New Prescriptions to Start Prescriptions: Allergies Allergy/AdvReac Type Severity Reaction Status Date / Time cefepime Allergy Mild Rash Verified 02/23/24 01:35 oxycodone Allergy Mild Rash Verified 02/23/24 01:35 Exam (Inpt) Vital signs and Labs for Last 24 Hours: Temp Pulse Resp BP Pulse Ox O2 Del Method 97.6 F 67 12 134/77 98 Room Air 02/23/24 08:00 02/23/24 08:00 02/23/24 08:00 02/23/24 08:00 02/23/24 08:00 02/23/24 10:56 Laboratory Results - last 24 hr 02/22/24 20:30: WBC 9.2, RBC 4.26 L, Hgb 12.8 L, Hct 40.1 L, MCV 94.1 H, MCH 30.0, MCHC 31.9, RDW 14.3, Plt Count 265, MPV 9.2, Neut % (Auto) 76.7, Lymph % (Auto) 16.8, [place] % (Auto) 5.3, Eos % (Auto) 0.8, Baso % (Auto) 0.3, Neut # (Auto) 7.1, Lymph # (Auto) 1.6, [place] # (Auto) 0.5, Eos # (Auto) 0.1, Baso # (Auto) 0.0, Sodium 134 L, Potassium 3.3 L, Chloride 97 L, Carbon Dioxide 31 H, Anion Gap 9.3, BUN 25 H, Creatinine 1.00, Estimated Creat Clear 50, Estimated GFR 73, Est GFR ( Amer) 88, Glucose 108 H, Calcium 9.1, Magnesium 1.8, Total Bilirubin 1.6 H, AST 34, ALT 29, Alkaline Phosphatase 224 H, Total Protein 6.6, Albumin 4.0, Globulin 2.6, Albumin/Globulin Ratio 1.5 02/22/24 21:26: Urine Color Dark yellow, Urine Appearance Slightly cloudy, Urine pH 7.0, Ur Specific [place] 1.010, Urine Protein 1+ A, Urine Glucose (UA) Negative, Urine Ketones Negative, Urine Blood Trace-i, Urine Nitrate Positive A, Urine Bilirubin Negative, Urine Urobilinogen 1.0, Ur Leukocyte Esterase 2+ A, Urine RBC Occasional, Urine WBC 50-100, Ur Squamous Epith Cells Occasional, Urine Bacteria Trace 02/22/24 21:49: Lactate 1.2 I & O for Labs for Last 24 Hours: Intake & Output 02/21/24 02/22/24 02/23/24 02/24/24 11:59 11:59 11:59 11:59 Output Total 1050 / 1050 Balance -1050 / -1050 Weight 124 lb 9.6 oz Constitutional: no acute distress GI: Present soft Comments:: Visible loops of bowel contours underlying soft tissue and palpation reveals lack of abdominal wall integrity with palpable stool present within the bowel. Rectal (male): Present deferred Comments:: Deferred due to administration of enemas and rectal exams Results Labs 02/22/24 20:30 02/22/24 20:30 Labs: Laboratory Results - last 24 hr 02/22/24 20:30: WBC 9.2, RBC 4.26 L, Hgb 12.8 L, Hct 40.1 L, MCV 94.1 H, MCH 30.0, MCHC 31.9, RDW 14.3, Plt Count 265, MPV 9.2, Neut % (Auto) 76.7, Lymph % (Auto) 16.8, [place] % (Auto) 5.3, Eos % (Auto) 0.8, Baso % (Auto) 0.3, Neut # (Auto) 7.1, Lymph # (Auto) 1.6, [place] # (Auto) 0.5, Eos # (Auto) 0.1, Baso # (Auto) 0.0, Sodium 134 L, Potassium 3.3 L, Chloride 97 L, Carbon Dioxide 31 H, Anion Gap 9.3, BUN 25 H, Creatinine 1.00, Estimated Creat Clear 50, Estimated GFR 73, Est GFR ( Amer) 88, Glucose 108 H, Calcium 9.1, Magnesium 1.8, Total Bilirubin 1.6 H, AST 34, ALT 29, Alkaline Phosphatase 224 H, Total Protein 6.6, Albumin 4.0, Globulin 2.6, Albumin/Globulin Ratio 1.5 02/22/24 21:26: Urine Color Dark yellow, Urine Appearance Slightly cloudy, Urine pH 7.0, Ur Specific [place] 1.010, Urine Protein 1+ A, Urine Glucose (UA) Negative, Urine Ketones Negative, Urine Blood Trace-i, Urine Nitrate Positive A, Urine Bilirubin Negative, Urine Urobilinogen 1.0, Ur Leukocyte Esterase 2+ A, Urine RBC Occasional, Urine WBC 50-100, Ur Squamous Epith Cells Occasional, Urine Bacteria Trace 02/22/24 21:49: Lactate 1.2 Assessment and Plan *Assessment and plan (1) Constipation in male: Status: Acute Category: Medical Code(s): K59.00 - Constipation, unspecified Plan Patient has significant constipation, likely chronic, with heavy stool burden throughout the colon. However based on clinical examination and CT findings no evidence of any stercoral colitis. He has had some relief thus far with minimal administration of enemas. Recommend continuation of enemas per rectum and ultimately will need progressively more aggressive bowel regimen.
--- NOTE | 2024-02-23 15:10 | P.PN_ITS ---
Subjective *Date: 02/23/24 *Time: 15:10 Exam Data for Last 24 hours Vital signs and Labs for Last 24 Hours: Temp Pulse Resp BP Pulse Ox O2 Del Method 97.6 F 67 12 134/77 98 Room Air 02/23/24 08:00 02/23/24 08:00 02/23/24 08:00 02/23/24 08:00 02/23/24 08:00 02/23/24 15:00 Laboratory Results - last 24 hr 02/22/24 20:30: WBC 9.2, RBC 4.26 L, Hgb 12.8 L, Hct 40.1 L, MCV 94.1 H, MCH 30.0, MCHC 31.9, RDW 14.3, Plt Count 265, MPV 9.2, Neut % (Auto) 76.7, Lymph % (Auto) 16.8, [place] % (Auto) 5.3, Eos % (Auto) 0.8, Baso % (Auto) 0.3, Neut # (Auto) 7.1, Lymph # (Auto) 1.6, [place] # (Auto) 0.5, Eos # (Auto) 0.1, Baso # (Auto) 0.0, Sodium 134 L, Potassium 3.3 L, Chloride 97 L, Carbon Dioxide 31 H, Anion Gap 9.3, BUN 25 H, Creatinine 1.00, Estimated Creat Clear 50, Estimated GFR 73, Est GFR ( Amer) 88, Glucose 108 H, Calcium 9.1, Magnesium 1.8, Total Bilirubin 1.6 H, AST 34, ALT 29, Alkaline Phosphatase 224 H, Total Protein 6.6, Albumin 4.0, Globulin 2.6, Albumin/Globulin Ratio 1.5 02/22/24 21:26: Urine Color Dark yellow, Urine Appearance Slightly cloudy, Urine pH 7.0, Ur Specific [place] 1.010, Urine Protein 1+ A, Urine Glucose (UA) Negative, Urine Ketones Negative, Urine Blood Trace-i, Urine Nitrate Positive A, Urine Bilirubin Negative, Urine Urobilinogen 1.0, Ur Leukocyte Esterase 2+ A, Urine RBC Occasional, Urine WBC 50-100, Ur Squamous Epith Cells Occasional, Urine Bacteria Trace 02/22/24 21:49: Lactate 1.2 I & O for Last 24 hours: Intake & Output 12/0302/21/24 02/22/24 02/23/24 23:59 23:59 23:59 23:59 Output Total 1050 / 1050 Balance -1050 / -1050 Weight 54.431 kg 56.518 kg Constitutional Constitutional: no acute distress *Routine HEENT Exam Head: Present normocephalic Eye: Present EOMI and PERRL ENT: Present mucous membranes moist *Routine Neck Exam Neck: Present supple; Absent lymphadenopathy *Routine Respiratory Exam Respiratory: Present CTA bilaterally *Routine Cardiovascular Exam Cardiovascular: Present RRR *Routine Abdominal Exam Abdominal: Present soft and normoactive bowel sounds; Absent tenderness Comments: Stable ventral hernia. *Routine Extremities Exam Extremities: Absent cyanosis, clubbing or edema *Routine Skin Exam Skin: Present warm; Absent rash *Routine Neurological Exam Neurological: Present alert and oriented X3 Assessment and Plan *Assessment and plan (1) Ventral hernia without obstruction or gangrene: Status: Acute Category: Medical Code(s): K43.9 - Ventral hernia without obstruction or gangrene (2) Self-catheterizes urinary bladder: Status: Acute Category: Medical Code(s): Z78.9 - Other specified health status (3) Neurogenic bladder: Status: Acute Category: Medical Code(s): N31.9 - Neuromuscular dysfunction of bladder, unspecified (4) Fecal impaction: Status: Acute Category: Medical Code(s): K56.41 - Fecal impaction Plan René Cornejo is a 73-year-old male with a medical history significant for cirrhosis after reported exposure to agent orange agent orange agent orange s/p liver transplantation about 1.5 years ago at on immunosuppression therapy, neurogenic bladder, hypertension, hypothyroidism, GERD who presents with worsening abdominal pain. Admitted for severe fecal impaction. #Severe fecal impaction ? CT abdomen/pelvis showed diffuse severe stool retention with rectum impaction measuring up to 9.5 cm. ? Continue mineral oil enemas. Patient has had 2-3 bowel movements so far. ? Will likely need serial mineral oil enemas. ? General Surgery consulted given severity of fecal impaction, agree with plan of care. ? Continue oral rehydration. ? Will start MiraLAX and other stool softeners once rectal impaction has improved. #Suspected UTI ? UA suggests UTI, but could be colonization from chronic in and out catheterizations. ? Continue Zosyn day 2. No signs of sepsis. ? Follow-up urine cultures. #History of liver transplantation with ventral hernia #Neurogenic bladder ? Continue home mycophenolate, cyclosporine, prednisone 5 mg. ? Stable ventral hernia, no signs of incarceration or strangulation. ? Patient performs in and out caths for neurogenic bladder at home. ? Continue Gregory catheter at this time. #Hypothyroidism ? Resume home levothyroxine #GERD ? Resume home PPI DNR/DNI Lovenox 40
--- NOTE | 2024-02-23 18:24 | PC.NURSE ---
Pt alert and oriented. Bowel sounds active and abdomen is non-tender and soft. Pt has only had a small bowel movement today. pt also placed on full liquid diet for dinner. pt tolerated this well with no N/V. Pt has vargas in place. Enema was administered this evening with no results yet. Pt turned and repositioned Q2 hours. No complaints at this time with call light in reach.
[2024-02-23] MEDS: BRIMONIDINE 0.2% OPHTH SOLN 5ML BOTTLE OP (20:45)
[2024-02-23] MEDS: ATORVASTATIN 10MG TABLET 10 MG PO (20:45)
[2024-02-23] MEDS: TIMOLOL 0.5% OPTH SOLN 5ML OP (20:47)
[2024-02-23] MEDS: PANTOPRAZOLE 40MG TABLET 40 MG PO (20:55)
[2024-02-23] MEDS: TEMAZEPAM 15MG CAPSULE 15 MG PO (23:48)
[2024-02-24 04:00] VITALS: BP 163/93; PULSE 73; RESP 16; TEMP 36.8; O2SAT 100; BMI 19.5
--- NOTE | 2024-02-24 04:44 | PC.NURSE ---
73 yo male pt admitted with UTI and stool impaction. Pt was given enema prior to change of shift with no real results. Administered Dulcolax suppository, stool too high to reach. Pt has complained of abdominal cramps and back pain throughout the shift. He has refused tylenol. Pt requested to speak to hospitalist. Dr Valentine in to see pt and ordered a sleep aid. Med effective for a short period. Pt up to recliner chair by CNAs where he was able to rest some He has not taken in much PO this shift. F/c patent to BSD. VS have been WNL for pt
[2024-02-24] MEDS: LEVOTHYROXINE 137MCG (0.137MG) TAB 137 MCG PO (06:05)
[2024-02-24 06:48] LABS: Basophils % 0.3 % (0.1-2.0); Eosinophils # 0.3 K/mm3 (0.0-0.4); Hematocrit 37.1 % (42.0-52.0); Hemoglobin 12.4 g/dL (14.1-18.0); Lymphocytes # 1.2 K/mm3 (0.7-4.5); Lymphocytes % 13.3 % (10-50); Mean Corpuscular HGB Conc 33.3 g/dL (31.8-35.4); Mean Corpuscular Hemoglobin 31.4 pg (27.0-31.2); Mean Corpuscular Volume 94.2 fl (80-94); Monocytes # 0.5 K/mm3 (0.1-1.0); Monocytes % 5.7 % (1.7-9.3); Neutrophils % 77.7 % (37.0-80.0); Platelet Count 227 K/mm3 (142-424); Red Blood Count 3.94 M/mm3 (4.60-6.20); Red Cell Distribution Width 14.3 % (11.5-17.5)
[2024-02-24 06:50] LABS: Chloride 103 mmol/L (98-107)
[2024-02-24 06:51] LABS: Albumin Level 3.2 g/dl (3.5-5.0); Potassium 3.5 mmoL/L (3.5-5.1); Sodium 134 mmol/L (136-145)
[2024-02-24 06:53] LABS: Alanine Aminotransferase 18 U/L (12-78); Anion Gap 11.5 mEq/L (5-15); Aspartate Amino Transferase 20 U/L (17-59); Blood Urea Nitrogen 27 mg/dl (9-20); Carbon Dioxide 23 mmol/L (22.0-30.0); Creatinine Clearance Estimated 52 mL/min (50-200); Estimated Glomerular Filt Rate 73 ml/min (>60); GFR (African American) 88 ML/MIN (>60)
[2024-02-24 06:54] LABS: Albumin/Globulin Ratio 1.3 (1.1-1.8); Alkaline Phosphatase 184 U/L (38-126); Bilirubin,Total 1.9 mg/dl (0.2-1.3); Calcium 8.6 mg/dl (8.4-10.2); Globulin 2.4 g/dL (1.3-3.2); Glucose 88 mg/dl (74-100); Total Protein,Serum 5.6 g/dl (6.3-8.2)
[2024-02-24 08:00] VITALS: BP 164/88; PULSE 71; RESP 20; TEMP 36.6; O2SAT 99
[2024-02-24 08:27] LABS: Free T4 (Free Thyroxine) 3.24 ng/dl (0.78-2.19)
[2024-02-24] MEDS: PIPERCILLIN/TAZO 3.375 GM in 0.9 % SODIUM CHLORIDE 50 ML IV ×2 (08:30→17:21)
[2024-02-24] MEDS: [UNRECOGNIZED DRUG - OTHER] 25 EACH PO ×2 (08:30→21:03)
[2024-02-24] MEDS: TIMOLOL 0.5% OPTH SOLN 5ML OP ×2 (08:31→21:03)
[2024-02-24] MEDS: POSACONAZOLE 100 MG 300 EACH PO (08:32)
[2024-02-24] MEDS: VALSARTAN 40 MG 40 EACH PO ×2 (08:32→21:03)
[2024-02-24] MEDS: BRIMONIDINE 0.2% OPHTH SOLN 5ML BOTTLE OP ×2 (08:32→21:03)
[2024-02-24] MEDS: PRASUGREL 10MG TAB 10 MG PO (08:33)
[2024-02-24] MEDS: [UNRECOGNIZED DRUG - OTHER] 250 EACH PO ×2 (08:33→21:03)
[2024-02-24 08:34] LABS: Thyroid Stimulating Hormone < 0.02 uIU/mL (0.465-4.68)
[2024-02-24] MEDS: ENOXAPARIN 40MG/0.4ML SYRINGE 40 MG SUBCUT (08:34)
[2024-02-24] MEDS: predniSONE 5MG TAB 5 MG PO (08:34)
[2024-02-24] MEDS: ASPIRIN EC 81MG TABLET 81 MG PO (08:34)
[2024-02-24] MEDS: MINERAL OIL ENEMA 133ML 133 ML RC (10:06)
--- NOTE | 2024-02-24 10:48 | HMH.PTEV ---
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 He is ended up with a neurogenic bladder having to in and out cath himself. It was noted that he came in due to severe constipation for more than 6 days without a bowel movement. He did an In-N-Out cath here at the emergency room but was found to still have several 100 cc of urine left with a very thick bladder wall. Neurogenic bladder has been chronic but this may be worsening to the point that it is keeping him from being able to have a bowel movement. He has given a history of having constipation in the past but MiraLAX and other products have taken care of it . He believes this is the first time he has had to come into the emergency room due to constipation. And it is giving him some abdominal pain . Scan showing extensive amount of stool throughout the bowel but the colon is definitely filled Also patient has been treated recently for Pseudomonas urinary tract infection. He also shows UTI positive leukocytes positive nitrites tonight. Plan is for the ER to try fleets enema to help try to clear her mouth and will put him upstairs I will then use different products to try to finish cleaning him out. If unsuccessful I have also put in a consult for general surgery in case we need to mechanically disimpact him. Presently the patient is showing no distress. Subjective Subjective PLOF: Pt uses an electric w/c as his primary mode of mobility. Pt is SUP-Min A level with lift chair>electric chair transfers. Pt with L hemiparesis and hx of multiple strokes per pt's report. Pt does not transfer from a regular chair d/t difficulty standing from that height. Pt owns a lift chair (sleeps in it), elevated toilet seat, ramp into home, electric w/c, and RW. Pt last ambulated when he went to [place] (10-15' with RW) in December. Denies any falls in past month. Home: Pt lives in a single- story home with a ramped entrance. Pt lives with his . Available assistance: provides all care as needed throughout day/night. reports she has a daughter-in- law and son-in-law that live nearby and could assist if needed. New diagnosis of cancer in past 12 No months? Rehab PT IP Eval Objective Appearance Patient Behavior Appropriate,Cooperative Patient Orientation Person,Place,Situation Difficulty following instructions none Speech Pattern Clear Ambulation Patient Able to Ambulate No Balance Ability to Arise Able, uses arms to help Sitting Balance Steady, safe Standing Balance Unsteady Dynamic Sitting Balance Ability Good Dynamic Standing Balance Ability Fair Transfers Sit to Stand Bed Transfer Ability Moderate x 2 (50% assist) MMT LLE PT MMT ABN Abnormal MMT Grade 3-3+ globally RLE PT MMT WFL Rehab PT IP prob,goals,plan Problems Date of Evaluation: 02/24/24 PT IP Problems Transfers,Gait,Balance,Safety Rehab Potential Rehab Potential Good Equipment Needs Assistive Devices Rolling / Wheeled Walker Plan PT Intervention Plan Bed Mobility,Transfers,Gait, Balance,Safety,Therapeutic Exercise Other Intervention Plan 1-2 times PT Plan Frequency Daily Duration LOS Discharge Goals Bed Transfer Ability Minimal x 1 (25% assist) Sit to Stand Chair Transfer Ability Minimal x 2 (25% assist) Ambulation Assistive Device Rolling Walker Ambulation Distance (feet) 5 Discharge Plan PT Discharge Plan Initial PT evaluation performed. PT is familiar with pt as he used to be seen in outpatient for gait and balance. Pt presents below baseline in gait and transfers . Pt transferred from a regular recliner surface with Mod A. However, pt does not have to transfer from a low surface at home (has a lift chair and high-seated w/c). Pt also has a raised toilet seat . Once standing, pt is CGA with UE support on an AD. Pt may benefit from rehab placement d/t his current level of mobility. However, if not interested in rehab, pt may be safe to return home with 10/10 care d/t home set up , available assistance, and available equipment. If returning home, PT recommending pt return to OP PT to address gait and strength deficits. Pt would benefit from skilled acute care PT while at [facility]. Eval Complexity Eval Charge Codes 11335 - Moderate Complexity PHYSICIAN CERTIFICATION: I certify the specified therapy services for René Stefanie Cornejo are required, authorized, and reviewed every 30 days.
[2024-02-24 16:00] VITALS: BP 168/83; PULSE 73; RESP 18; TEMP 36.8; O2SAT 97
--- NOTE | 2024-02-24 18:45 | P.PN_ITS ---
Subjective *Date: 02/24/24 *Time: 18:45 Exam Data for Last 24 hours Vital signs and Labs for Last 24 Hours: Temp Pulse Resp BP Pulse Ox O2 Del Method 98.2 F 73 18 168/83 H 97 Room Air 02/24/24 16:00 02/24/24 16:00 02/24/24 16:00 02/24/24 16:00 02/24/24 16:00 02/24/24 16:00 Laboratory Results - last 24 hr 02/24/24 06:08: WBC 9.0, RBC 3.94 L, Hgb 12.4 L, Hct 37.1 L, MCV 94.2 H, MCH 31.4 H, MCHC 33.3, RDW 14.3, Plt Count 227, MPV 9.0, Neut % (Auto) 77.7, Lymph % (Auto) 13.3, [place] % (Auto) 5.7, Eos % (Auto) 3.0, Baso % (Auto) 0.3, Neut # (Auto) 7.0, Lymph # (Auto) 1.2, [place]eller # (Auto) 0.5, Eos # (Auto) 0.3, Baso # (Auto) 0.0, Sodium 134 L, Potassium 3.5, Chloride 103, Carbon Dioxide 23, Anion Gap 11.5, BUN 27 H, Creatinine 1.00, Estimated Creat Clear 52, Estimated GFR 73, Est GFR ( Amer) 88, Glucose 88, Calcium 8.6, Total Bilirubin 1.9 H, AST 20 D, ALT 18 D, Alkaline Phosphatase 184 H, Total Protein 5.6 L, Albumin 3.2 L D, Globulin 2.4, Albumin/Globulin Ratio 1.3 02/24/24 06:38: TSH < 0.02 L 02/24/24 : Free T4 3.24 H I & O for Last 24 hours: Intake & Output 02/21/24 02/22/24 02/23/24 02/24/24 23:59 23:59 23:59 23:59 Intake Total 500 / 550 1400 / 1400 Output Total 1300 / 1300 350 / 350 Balance -800 / -750 1050 / 1050 Weight 54.431 kg 56.518 kg 56.518 kg Microbiology Reports for the Last 24 Hours: Microbiology 02/22/24 23:05 Blood Blood Culture - Preliminary NO GROWTH AFTER 24 HOURS 02/22/24 23:05 Blood Blood Culture - Preliminary NO GROWTH AFTER 24 HOURS Constitutional Constitutional: no acute distress *Routine HEENT Exam Head: Present normocephalic Eye: Present EOMI and PERRL ENT: Present mucous membranes moist *Routine Neck Exam Neck: Present supple; Absent lymphadenopathy *Routine Respiratory Exam Respiratory: Present CTA bilaterally *Routine Cardiovascular Exam Cardiovascular: Present RRR *Routine Abdominal Exam Abdominal: Present soft and normoactive bowel sounds; Absent tenderness Comments: Stable ventral hernia. *Routine Extremities Exam Extremities: Absent cyanosis, clubbing or edema *Routine Skin Exam Skin: Present warm; Absent rash *Routine Neurological Exam Neurological: Present alert and oriented X3 Assessment and Plan *Assessment and plan (1) Ventral hernia without obstruction or gangrene: Status: Acute Category: Medical Code(s): K43.9 - Ventral hernia without obstruction or gangrene (2) Self-catheterizes urinary bladder: Status: Acute Category: Medical Code(s): Z78.9 - Other specified health status (3) Neurogenic bladder: Status: Acute Category: Medical Code(s): N31.9 - Neuromuscular dysfunction of bladder, unspecified (4) Fecal impaction: Status: Acute Category: Medical Code(s): K56.41 - Fecal impaction Plan René Cornejo is a 73-year-old male with a medical history significant for cirrhosis after reported exposure to agent orange agent orange agent orange s/p liver transplantation about 1.5 years ago at on immunosuppression therapy, neurogenic bladder, hypertension, hypothyroidism, GERD who presents with worsening abdominal pain. Admitted for severe fecal impaction. #Severe fecal impaction ? CT abdomen/pelvis showed diffuse severe stool retention with rectum impaction measuring up to 9.5 cm. ? Continue mineral oil enemas. Patient has had 3-4 small to moderate bowel movements so far. ? Given soapsuds enema this afternoon. Will repeat again tonight. ? General Surgery consulted given severity of fecal impaction, agree with plan of care. ? Continue oral rehydration. ? Will start MiraLAX and other stool softeners once rectal impaction has improved. #Suspected UTI ? UA suggests UTI, but could be colonization from chronic in and out catheterizations. ? Continue Zosyn day 2. No signs of sepsis. ? Follow-up urine cultures. #Hypothyroidism ? Resume home levothyroxine. ? TSH less than 0.04, free T4 elevated to 3.24 indicating supratherapeutic dosing of levothyroxine. ? Decreased levothyroxine from 137 to 88 mcg. #History of liver transplantation with ventral hernia #Neurogenic bladder ? Continue home mycophenolate, cyclosporine, prednisone 5 mg. ? Stable ventral hernia, no signs of incarceration or strangulation. ? Patient performs in and out caths for neurogenic bladder at home. ? Continue Gregory catheter at this time. #GERD ? Resume home PPI DNR/DNI Donnell 40
[2024-02-24] MEDS: 0.9 % SODIUM CHLORIDE 1000ML 1,000 ML 75 ML IV (19:13)
[2024-02-24] MEDS: PANTOPRAZOLE 40MG TABLET 40 MG PO (21:04)
[2024-02-24] MEDS: ATORVASTATIN 10MG TABLET 10 MG PO (21:04)
[2024-02-24] MEDS: TEMAZEPAM 15MG CAPSULE 15 MG PO (21:04)
[2024-02-25] MEDS: PIPERCILLIN/TAZO 3.375 GM in 0.9 % SODIUM CHLORIDE 50 ML IV (00:16)
[2024-02-25 04:00] VITALS: BMI 21.0
[2024-02-25 04:19] VITALS: BP 181/97; PULSE 70; RESP 18; TEMP 37.5; O2SAT 97
--- NOTE | 2024-02-25 05:52 | PC.NURSE ---
Patient has had a good night. He has slept off and on through the night. He has had x3 BM and belly is soft and non-tender to the touch. no new complaints this shift
[2024-02-25] MEDS: LEVOTHYROXINE 88MCG (0.088MG) TAB 88 MCG PO (06:20)
[2024-02-25] MEDS: 0.9 % SODIUM CHLORIDE 1000ML 1,000 ML 75 ML IV ×2 (06:20→22:32)
[2024-02-25 07:30] LABS: Basophils % 0.3 % (0.1-2.0); Eosinophils # 0.3 K/mm3 (0.0-0.4); Eosinophils % 3.7 % (0.1-12.0); Hematocrit 36.2 % (42.0-52.0); Hemoglobin 12.2 g/dL (14.1-18.0); Lymphocytes # 1.5 K/mm3 (0.7-4.5); Lymphocytes % 17.7 % (10-50); Mean Corpuscular HGB Conc 33.6 g/dL (31.8-35.4); Mean Corpuscular Hemoglobin 31.5 pg (27.0-31.2); Mean Corpuscular Volume 93.7 fl (80-94); Mean Platelet Volume 8.9 fl (7.4-10.4); Monocytes # 0.5 K/mm3 (0.1-1.0); Monocytes % 6.2 % (1.7-9.3); Neutrophils % 72.2 % (37.0-80.0); Platelet Count 227 K/mm3 (142-424); Red Blood Count 3.86 M/mm3 (4.60-6.20); Red Cell Distribution Width 14.1 % (11.5-17.5); White Blood Count 8.3 K/mm3 (4.8-10.8)
[2024-02-25 07:31] LABS: Chloride 103 mmol/L (98-107); Sodium 135 mmol/L (136-145)
[2024-02-25 07:34] LABS: Alanine Aminotransferase 18 U/L (12-78); Albumin/Globulin Ratio 1.3 (1.1-1.8); Alkaline Phosphatase 177 U/L (38-126); Anion Gap 8.6 mEq/L (5-15); Aspartate Amino Transferase 26 U/L (17-59); Bilirubin,Total 1.7 mg/dl (0.2-1.3); Blood Urea Nitrogen 16 mg/dl (9-20); Calcium 8.4 mg/dl (8.4-10.2); Carbon Dioxide 26 mmol/L (22.0-30.0); Creatinine Clearance Estimated 56 mL/min (50-200); Estimated Glomerular Filt Rate 94 ml/min (>60); GFR (African American) 114 ML/MIN (>60); Globulin 2.4 g/dL (1.3-3.2); Glucose 97 mg/dl (74-100); Total Protein,Serum 5.4 g/dl (6.3-8.2)
[2024-02-25 07:38] LABS: Potassium 2.6 mmoL/L (3.5-5.1)
--- NOTE | 2024-02-25 07:55 | CT_ITS ---
PROCEDURE INFORMATION: Exam: CT Abdomen And Pelvis Without Contrast Exam date and time: 02/25/2024 10:37 AM Age: 73 years old Clinical indication: Other: F/u severe fecal impaction TECHNIQUE: Imaging protocol: Computed tomography of the abdomen and pelvis without contrast. Radiation optimization: All CT scans at this facility use at least one of these dose optimization techniques: automated exposure control; mA and/or kV adjustment per patient size (includes targeted exams where dose is matched to clinical indication); or iterative reconstruction. COMPARISON: CT ABDOMEN PELVIS WO CON 02/22/2024 9:41 PM FINDINGS: Tubes, catheters and devices: Gregory catheter Lungs: Bibasilar atelectasis versus parenchymal scarring. Pleural spaces: small bilateral pleural effusions Diaphragm: Small hiatal hernia Liver: The liver is unremarkable. Gallbladder and biliary ducts: Cholecystectomy the internal biliary stent again demonstrated. Pancreas: Pancreas unremarkable Spleen: The spleen is unremarkable. Adrenal glands: Adrenal glands unremarkable. Kidneys and ureters: Bilateral nonobstructing renal calculi again demonstrated the. Persistent bilateral hydronephrosis and hydroureter. No evidence of an obstructing calculus. Perinephric stranding. Findings nonspecific and may reflect acute versus chronic inflammatory change. Stomach and bowel: Persistent marked fecal impaction. Persistent dilatation of the rectum to approximately 8.4 cm. Associated mild bowel wall thickening. Clinically correlate regarding developing stercoral colitis. Appendix: No evidence of appendicitis. Intraperitoneal space: Unremarkable. No free air. No significant fluid collection. Vasculature: Scattered regions of atherosclerotic vascular calcification within the abdominal aorta and common iliac arteries. Lymph nodes: Unremarkable. No enlarged lymph nodes. Urinary bladder: Mild thickening of the bladder wall may reflect incomplete distension. Could not exclude changes of cystitis. Reproductive: Unremarkable as visualized. Bones/joints: Lumbar spondylosis with multilevel disc degeneration. Chronic L3 and L4 compression fracture deformities Soft tissues: Small focus of subcutaneous air anterior to the abdominal wall. This may be related to subcutaneous injection. Clinically correlate. IMPRESSION: 1. Persistent marked fecal impaction. Persistent dilatation of the rectum to approximately 8.4 cm. Associated mild bowel wall thickening. Clinically correlate regarding developing stercoral colitis. 2. Mild thickening of the bladder wall may reflect incomplete distension. Could not exclude changes of cystitis. 3. Persistent bilateral hydronephrosis and hydroureter. No evidence of an obstructing calculus. 4. Small focus of subcutaneous air anterior to the abdominal wall. This may be related to subcutaneous injection. Clinically correlate.
[2024-02-25 08:00] VITALS: BP 156/87; PULSE 63; RESP 17; TEMP 36.3; O2SAT 99
[2024-02-25] MEDS: KCl 20mEq/100ml 100 ML 50 MEQ IV ×3 (08:29→15:29)
[2024-02-25 08:51] LABS: Magnesium 1.9 mg/dl (1.6-2.3)
[2024-02-25] MEDS: POSACONAZOLE 100 MG 300 EACH PO (09:38)
[2024-02-25] MEDS: ENOXAPARIN 40MG/0.4ML SYRINGE 40 MG SUBCUT (09:38)
[2024-02-25] MEDS: ASPIRIN EC 81MG TABLET 81 MG PO (09:38)
[2024-02-25] MEDS: [UNRECOGNIZED DRUG - OTHER] 25 EACH PO ×2 (09:38→21:16)
[2024-02-25] MEDS: PRASUGREL 10MG TAB 10 MG PO (09:38)
[2024-02-25] MEDS: predniSONE 5MG TAB 5 MG PO (09:38)
[2024-02-25] MEDS: [UNRECOGNIZED DRUG - OTHER] 250 EACH PO ×2 (09:39→21:16)
[2024-02-25] MEDS: BRIMONIDINE 0.2% OPHTH SOLN 5ML BOTTLE OP ×2 (09:39→21:16)
[2024-02-25] MEDS: VALSARTAN 40 MG 40 EACH PO ×2 (09:39→21:16)
[2024-02-25] MEDS: TIMOLOL 0.5% OPTH SOLN 5ML OP ×2 (09:39→21:17)
[2024-02-25 16:00] VITALS: BP 168/90; PULSE 61; RESP 18; TEMP 36.7; O2SAT 97
[2024-02-25 20:00] VITALS: BP 179/92; PULSE 75; RESP 16; TEMP 36.6; O2SAT 98
[2024-02-25] MEDS: ATORVASTATIN 10MG TABLET 10 MG PO (21:16)
[2024-02-25] MEDS: PANTOPRAZOLE 40MG TABLET 40 MG PO (21:16)
[2024-02-25] MEDS: TEMAZEPAM 15MG CAPSULE 15 MG PO (22:32)
--- NOTE | 2024-02-25 22:41 | P.PN_ITS ---
Subjective *Date: 02/25/24 *Time: 22:41 Interval history: Had a large bowel movement this afternoon. May start oral stool softners in the morning. COntinue soap suds enema for now. PAtient is doing well, working with Pt/OT. Exam Data for Last 24 hours Vital signs and Labs for Last 24 Hours: Temp Pulse Resp BP Pulse Ox O2 Del Method 97.8 F 75 16 179/92 H 98 Room Air 02/25/24 20:00 02/25/24 20:00 02/25/24 20:00 02/25/24 20:00 02/25/24 20:00 02/25/24 20:00 Laboratory Results - last 24 hr 02/25/24 06:50: WBC 8.3, RBC 3.86 L, Hgb 12.2 L, Hct 36.2 L, MCV 93.7, MCH 31.5 H, MCHC 33.6, RDW 14.1, Plt Count 227, MPV 8.9, Neut % (Auto) 72.2, Lymph % (Auto) 17.7, [place] % (Auto) 6.2, Eos % (Auto) 3.7, Baso % (Auto) 0.3, Neut # (Auto) 6.0, Lymph # (Auto) 1.5, [place] # (Auto) 0.5, Eos # (Auto) 0.3, Baso # (Auto) 0.0, Sodium 135 L, Potassium 2.6 L* D, Chloride 103, Carbon Dioxide 26, Anion Gap 8.6, BUN 16 D, Creatinine 0.80, Estimated Creat Clear 56, Estimated GFR 94, Est GFR ( Amer) 114 D, Glucose 97, Calcium 8.4, Magnesium 1.9, Total Bilirubin 1.7 H, AST 26 D, ALT 18, Alkaline Phosphatase 177 H, Total Protein 5.4 L, Albumin 3.0 L, Globulin 2.4, Albumin/Globulin Ratio 1.3 I & O for Last 24 hours: Intake & Output 02/22/24 02/23/24 02/24/24 02/25/24 23:59 23:59 23:59 23:59 Intake Total 500 / 550 1400 / 1500 1150 / 1150 Output Total 1300 / 1300 1000 / 1000 1850 / 1850 Balance -800 / -750 400 / 500 -700 / -700 Weight 54.431 kg 56.518 kg 56.518 kg 60.917 kg Microbiology Reports for the Last 24 Hours: Microbiology 02/22/24 21:26 Urine,Clean Catch Urine Culture - Final NO GROWTH AFTER 48 HOURS 02/22/24 23:05 Blood Blood Culture - Preliminary NO GROWTH AFTER 48 HOURS 02/22/24 23:05 Blood Blood Culture - Preliminary NO GROWTH AFTER 48 HOURS Constitutional Constitutional: no acute distress *Routine HEENT Exam Head: Present normocephalic Eye: Present EOMI and PERRL ENT: Present mucous membranes moist *Routine Neck Exam Neck: Present supple; Absent lymphadenopathy *Routine Respiratory Exam Respiratory: Present CTA bilaterally *Routine Cardiovascular Exam Cardiovascular: Present RRR *Routine Abdominal Exam Abdominal: Present soft and normoactive bowel sounds; Absent tenderness Comments: Stable ventral hernia. *Routine Extremities Exam Extremities: Absent cyanosis, clubbing or edema *Routine Skin Exam Skin: Present warm; Absent rash *Routine Neurological Exam Neurological: Present alert and oriented X3 Assessment and Plan *Assessment and plan (1) Ventral hernia without obstruction or gangrene: Status: Acute Category: Medical Code(s): K43.9 - Ventral hernia without obstruction or gangrene (2) Self-catheterizes urinary bladder: Status: Acute Category: Medical Code(s): Z78.9 - Other specified health status (3) Neurogenic bladder: Status: Acute Category: Medical Code(s): N31.9 - Neuromuscular dysfunction of bladder, unspecified (4) Fecal impaction: Status: Acute Category: Medical Code(s): K56.41 - Fecal impaction Plan René Cornejo is a 73-year-old male with a medical history significant for cirrhosis after reported exposure to agent orange agent orange agent orange s/p liver transplantation about 1.5 years ago at on immunosuppression therapy, neurogenic bladder, hypertension, hypothyroidism, GERD who presents with worsening abdominal pain. Admitted for severe fecal impaction. #Severe fecal impaction ? CT abdomen/pelvis showed diffuse severe stool retention with rectum impaction measuring up to 9.5 cm. - Repeat CT continued to show severe impaction this morning. - Continue serial enemas. - Had a very large bowel movement this afternoon after some manual disimpaction. Will continue serial enemas. ? General Surgery consulted given severity of fecal impaction, possible OR in the morning if limited improvement but patient has good bowel movement this afternoon. ? Continue oral rehydration. ? Will start MiraLAX and other stool softeners once rectal impaction has improved. #Gregory catheter colonization ? UA suggests UTI, but urine culture does not show growth. Discontinued ZOsyn. #Hypothyroidism ? Resume home levothyroxine. ? TSH less than 0.04, free T4 elevated to 3.24 indicating supratherapeutic dosing of levothyroxine. ? Decreased levothyroxine from 137 to 88 mcg. #History of liver transplantation with ventral hernia #Neurogenic bladder - Has had bladder retention since liver transplant. ? Patient performs in and out caths for neurogenic bladder at home. ? Continue home mycophenolate, cyclosporine, prednisone 5 mg. ? Stable ventral hernia, no signs of incarceration or strangulation. ? Continue Gregory catheter at this time. #History of CVAx3 - Left sided residual weakness. - Lower extremity weakness has worsened since liver transplant. - [place]king with PT/OT. - COntinue aspirin, statin. #GERD ? Resume home PPI DNR/DNI Lovenox 40
[2024-02-26 00:38] VITALS: BP 170/97; PULSE 75; RESP 20; TEMP 36; O2SAT 99
[2024-02-26 04:00] VITALS: BMI 20.7
[2024-02-26 05:00] VITALS: BP 175/85; PULSE 69; RESP 19; TEMP 36.4; O2SAT 93
--- NOTE | 2024-02-26 05:59 | PC.NURSE ---
Alert and oriented. No complaints from patient throughout shift. Pt requested to be in recliner and has slept there through the night with no complications. No bowel movement through night. Soap suds enema ordered, patient requested to wait until morning because he wished to actually sleep . Pt is room air. Gregory in place and draining yellow urine. Call light in reach.
[2024-02-26 06:21] LABS: Basophils % 0.4 % (0.1-2.0); Eosinophils # 0.3 K/mm3 (0.0-0.4); Eosinophils % 4.3 % (0.1-12.0); Hematocrit 38.3 % (42.0-52.0); Hemoglobin 12.7 g/dL (14.1-18.0); Lymphocytes % 26.3 % (10-50); Mean Corpuscular HGB Conc 33.3 g/dL (31.8-35.4); Mean Corpuscular Hemoglobin 31.3 pg (27.0-31.2); Mean Platelet Volume 9.3 fl (7.4-10.4); Monocytes # 0.5 K/mm3 (0.1-1.0); Monocytes % 6.8 % (1.7-9.3); Neutrophils # 4.7 K/mm3 (1.8-7.8); Neutrophils % 62.2 % (37.0-80.0); Platelet Count 248 K/mm3 (142-424); Red Blood Count 4.07 M/mm3 (4.60-6.20); Red Cell Distribution Width 14.1 % (11.5-17.5); White Blood Count 7.5 K/mm3 (4.8-10.8)
[2024-02-26 06:22] LABS: Albumin Level 3.1 g/dl (3.5-5.0); Chloride 103 mmol/L (98-107); Sodium 135 mmol/L (136-145)
[2024-02-26 06:25] LABS: Alanine Aminotransferase 17 U/L (12-78); Albumin/Globulin Ratio 1.3 (1.1-1.8); Alkaline Phosphatase 181 U/L (38-126); Anion Gap 8.8 mEq/L (5-15); Aspartate Amino Transferase 21 U/L (17-59); Bilirubin,Total 1.8 mg/dl (0.2-1.3); Blood Urea Nitrogen 11 mg/dl (9-20); Carbon Dioxide 26 mmol/L (22.0-30.0); Creatinine Clearance Estimated 55 mL/min (50-200); Estimated Glomerular Filt Rate 132 ml/min (>60); GFR (African American) 159 ML/MIN (>60); Globulin 2.4 g/dL (1.3-3.2); Total Protein,Serum 5.5 g/dl (6.3-8.2)
[2024-02-26 06:26] LABS: Calcium 8.6 mg/dl (8.4-10.2); Glucose 85 mg/dl (74-100)
--- NOTE | 2024-02-26 06:56 | PC.NURSE ---
Pt has been in chair throughout night resting, patient requested the soap suds enema be done after breakfast.
[2024-02-26] MEDS: LEVOTHYROXINE 88MCG (0.088MG) TAB 88 MCG PO (06:59)
[2024-02-26 07:00] LABS: Potassium 2.8 mmoL/L (3.5-5.1)
--- NOTE | 2024-02-26 07:02 | PC.NURSE ---
Meme called about critical potassium at this time.
[2024-02-26] MEDS: VALSARTAN 40 MG 40 EACH PO (09:41)
[2024-02-26] MEDS: POSACONAZOLE 100 MG 300 EACH PO (09:41)
[2024-02-26] MEDS: ENOXAPARIN 40MG/0.4ML SYRINGE 40 MG SUBCUT (09:41)
[2024-02-26] MEDS: [UNRECOGNIZED DRUG - OTHER] 250 EACH PO (09:41)
[2024-02-26] MEDS: PRASUGREL 10MG TAB 10 MG PO (09:41)
[2024-02-26] MEDS: TIMOLOL 0.5% OPTH SOLN 5ML OP (09:42)
[2024-02-26] MEDS: BRIMONIDINE 0.2% OPHTH SOLN 5ML BOTTLE OP ×2 (09:42→14:33)
[2024-02-26] MEDS: POTASSIUM CHLORIDE 20MEQ TAB 40 MEQ PO ×2 (09:42→14:32)
[2024-02-26] MEDS: predniSONE 5MG TAB 5 MG PO (09:42)
[2024-02-26] MEDS: ASPIRIN EC 81MG TABLET 81 MG PO (09:42)
[2024-02-26] MEDS: [UNRECOGNIZED DRUG - OTHER] 25 EACH PO (09:43)
--- NOTE | 2024-02-26 10:24 | SW/DCPLANNER ---
I spoke w/ patient and his regarding plans once medically stable for discharge. PT evaluated patient and recommended placement at time of discharge. Per patient he is not interested in placement at this time or home health services. Patient stated that he generally receives services from outpatient [facility] rehab services and prefers this at time of discharge. Patient also stated that he has all appropriate DME at time of discharge. is agreeable for patient to return home and receive outpatient PT services. I will continue to follow up w/ patient and his until medically stable for discharge. Discharge date is unknown at this time.
--- NOTE | 2024-02-26 11:58 | PC.NURSE ---
Patient given soap suds enema.
[2024-02-26] MEDS: 0.9 % SODIUM CHLORIDE 1000ML 1,000 ML 75 ML IV (12:20)
--- NOTE | 2024-02-26 14:32 | HMH.PTWOUND ---
Rehab Inpt Wound Evaluation Rehab IP Wound Evaluation Start: 02/26/24 12:10 Freq: ONCE Status: Active Protocol: Document 02/26/24 14:27 CARLOS ALBERTOAmyJUNO (Rec: 02/26/24 14:31 PHOAMADOU [id number]) Rehab PT Wound Assessment Subjective Subjective Per H&P: This 73-year-old [facility] era vet, that ended up with a liver transplant due to cirrhosis question related to agent orange exposure.. He is ended up with a neurogenic bladder having to in and out cath himself. It was noted that he came in due to severe constipation for more than 6 days without a bowel movement. He did an In-N-Out cath here at the emergency room but was found to still have several 100 cc of urine left with a very thick bladder wall. Neurogenic bladder has been chronic but this may be worsening to the point that it is keeping him from being able to have a bowel movement. He has given a history of having constipation in the past but MiraLAX and other products have taken care of it . He believes this is the first time he has had to come into the emergency room due to constipation. And it is giving him some abdominal pain . Scan showing extensive amount of stool throughout the bowel but the colon is definitely filled Also patient has been treated recently for Pseudomonas urinary tract infection. He also shows UTI positive leukocytes positive nitrites tonight. Plan is for the ER to try fleets enema to help try to clear her mouth and will put him upstairs I will then use different products to try to finish cleaning him out. If unsuccessful I have also put in consult for general surgery in case we need to mechanically disimpact him. Presently the patient is showing no distress. PT wound consult entered due to low Rocky Score upon admission. He currently does not have any wounds. Plan/Recommendation Comment No open wounds noted and the [facility] staff is providing appropriate pressure relief to bony prominences as indicated per protocols. No need for wound care at this time. Thank you for involving the wound care team in the care of this patient. PHYSICIAN CERTIFICATION: I certify the specified therapy services for René Cornejo are required, authorized, and reviewed every 30 days.
[2024-02-26] MEDS: POLYETHYLENE GLYCOL 3350 17 GM PACKET PO (14:33)
--- NOTE | 2024-02-26 14:56 | EXP.DC.SUM ---
General Admission date:: 02/24/24 HPI HPI HPI: Patient is a 73-year-old male who has undergone previous liver transplantation about 1-1/2 years ago due to cirrhosis at [facility]. He has had issues surgically and medically after his transplant including stroke, [place], abdominal defect development. He has a history of neurogenic bladder having to perform in and out self-catheterization. He states that he has a longstanding history of constipation. He presented to the emergency department due to significant constipation and 6 days of obstipation with associated abdominal pain. Evaluation in the emergency department revealed urinary tract infection. CT scan revealed severe retained stool diffusely with massive distention of the rectal lumen to 9.5 cm. Plan was for admission for inpatient management for bowel regimen. General surgical consultation was obtained for possible manual disimpaction. Hospital Course Hospital Course Hospital Course: René Cornejo is a 73-year-old male with a medical history significant for cirrhosis after reported exposure to agent orange agent orange agent orange s/p liver transplantation about 1.5 years ago at on immunosuppression therapy, neurogenic bladder, hypertension, hypothyroidism, GERD who presents with worsening abdominal pain. Admitted for severe fecal impaction. #Severe fecal impaction ? CT abdomen/pelvis showed diffuse severe stool retention with rectum impaction measuring up to 9.5 cm. - Repeat CT continued to show severe impaction this morning. - Gradually improved with serial enemas (soap suds, mineral oil), manual disimpaction, and then Miralax with bisacodyl. - Continue to have some constipation, and such will continue bowel regimen as below. - Mirlax 1-2 times a day, with daily glycerin suppository for 1 week to titrate 1-2 bowel movements a day. Then Mirlax daily, bisacodyl as needed. #Chornic vargas catheter bacterial colonization ? UA suggests UTI, but urine culture does not show growth. Discontinued Zosyn. #Hypothyroidism ? Resume home levothyroxine. ? TSH less than 0.04, free T4 elevated to 3.24 indicating supratherapeutic dosing of levothyroxine. ? Decreased levothyroxine from 137 to 88 mcg. #History of liver transplantation with ventral hernia #Neurogenic bladder - Has had bladder retention since liver transplant ~1.5 years ago. ? Patient performs in and out caths for neurogenic bladder at home. ? Continue home mycophenolate, cyclosporine, prednisone 5 mg. ? Stable ventral hernia, no signs of incarceration or strangulation. ? Continue Vargas catheter at this time. Follow-up with Urology. #History of CVAx3 - Left sided residual weakness. - Lower extremity weakness has worsened since liver transplant. - [place] with PT/OT, recommended SNF put patient opted for outpatient PT. - COntinue aspirin, statin. #GERD ? Resume home PPI Exam Data for Last 24 hours Vital signs and Labs for Last 24 Hours: Temp Pulse Resp BP Pulse Ox O2 Del Method 97.5 F L 69 19 175/85 H 93 L Room Air 02/26/24 05:00 02/26/24 05:00 02/26/24 05:00 02/26/24 05:00 02/26/24 05:00 02/26/24 07:00 Laboratory Results - last 24 hr 02/26/24 05:58: WBC 7.5, RBC 4.07 L, Hgb 12.7 L, Hct 38.3 L, MCV 94.0, MCH 31.3 H, MCHC 33.3, RDW 14.1, Plt Count 248, MPV 9.3, Neut % (Auto) 62.2, Lymph % (Auto) 26.3, Miller % (Auto) 6.8, Eos % (Auto) 4.3, Baso % (Auto) 0.4, Neut # (Auto) 4.7, Lymph # (Auto) 2.0, Miller # (Auto) 0.5, Eos # (Auto) 0.3, Baso # (Auto) 0.0, Sodium 135 L, Potassium 2.8 L*, Chloride 103, Carbon Dioxide 26, Anion Gap 8.8, BUN 11 D, Creatinine 0.60 L D, Estimated Creat Clear 55, Estimated GFR 132, Est GFR ( Amer) 159 D, Glucose 85, Calcium 8.6, Total Bilirubin 1.8 H, AST 21, ALT 17, Alkaline Phosphatase 181 H, Total Protein 5.5 L, Albumin 3.1 L, Globulin 2.4, Albumin/Globulin Ratio 1.3 I & O for Last 24 hours: Intake & Output 02/23/24 02/24/24 02/25/24 02/26/24 23:59 23:59 23:59 23:59 Intake Total 500 / 550 1400 / 1500 1150 / 1150 2360 / 2360 Output Total 1300 / 1300 1000 / 1000 3150 / 3150 1925 / 1925 Balance -800 / -750 400 / 500 -2000 / -2000 435 / 435 Weight 56.518 kg 56.518 kg 60.917 kg 60.1 kg Constitutional Constitutional: no acute distress *Routine HEENT Exam Head: Present normocephalic Eye: Present EOMI and PERRL ENT: Present mucous membranes moist *Routine Neck Exam Neck: Present supple; Absent lymphadenopathy *Routine Respiratory Exam Respiratory: Present CTA bilaterally *Routine Cardiovascular Exam Cardiovascular: Present RRR *Routine Abdominal Exam Abdominal: Present soft and normoactive bowel sounds; Absent tenderness Comments: Stable ventral hernia. *Routine Extremities Exam Extremities: Absent cyanosis, clubbing or edema Comments: 3/5 lower extremity strength. *Routine Skin Exam Skin: Present warm; Absent rash *Routine Neurological Exam Neurological: Present alert and oriented X3 Results Data Completed and Pending Labs on day of discharge: Labs from last 24 hours 02/26/24 05:58 WBC 7.5 RBC 4.07 L Hgb 12.7 L Hct 38.3 L MCV 94.0 MCH 31.3 H MCHC 33.3 RDW 14.1 Plt Count 248 MPV 9.3 Neut % (Auto) 62.2 Lymph % (Auto) 26.3 Miller % (Auto) 6.8 Eos % (Auto) 4.3 Baso % (Auto) 0.4 Neut # (Auto) 4.7 Lymph # (Auto) 2.0 Miller # (Auto) 0.5 Eos # (Auto) 0.3 Baso # (Auto) 0.0 Sodium 135 L Potassium 2.8 L* Chloride 103 Carbon Dioxide 26 Anion Gap 8.8 BUN 11 D Creatinine 0.60 L D Estimated Creat Clear 55 Estimated GFR 132 Est GFR ( Amer) 159 D Glucose 85 Calcium 8.6 Total Bilirubin 1.8 H AST 21 ALT 17 Alkaline Phosphatase 181 H Total Protein 5.5 L Albumin 3.1 L Globulin 2.4 Albumin/Globulin Ratio 1.3 Preliminary micro results at discharge 02/22/24 23:05 Blood Culture - Preliminary Blood NO GROWTH AFTER 48 HOURS 02/22/24 23:05 Blood Culture - Preliminary Blood NO GROWTH AFTER 48 HOURS DS: Diagnosis Discharge Diagnosis (1) Ventral hernia without obstruction or gangrene: Status: Acute Code(s): K43.9 - Ventral hernia without obstruction or gangrene (2) Self-catheterizes urinary bladder: Status: Acute Code(s): Z78.9 - Other specified health status (3) Neurogenic bladder: Status: Acute Code(s): N31.9 - Neuromuscular dysfunction of bladder, unspecified (4) Fecal impaction: Status: Acute Code(s): K56.41 - Fecal impaction Meds Home Medications and Allergies Home Medications ?Medication ?Instructions ?Recorded ?Confirmed ?Type carvedilol 3.125 mg tablet 3.125 mg PO BID 11/28/23 02/29/24 History prasugrel 10 mg tablet 10 mg PO DAILY 11/28/23 02/29/24 History rosuvastatin 5 mg tablet 5 mg PO DAILY 11/28/23 02/29/24 History valsartan 40 mg tablet 40 mg PO BID 11/28/23 02/29/24 History aspirin 81 mg tablet 81 mg PO DAILY 02/23/24 02/29/24 History brimonidine 0.2 % eye drops 1 drp Eye-Right TID 02/23/24 02/29/24 History cyclosporine 25 mg capsule 25 mg PO BID 02/23/24 02/29/24 History mycophenolate mofetil 250 mg 250 mg PO BID 02/23/24 02/29/24 History capsule posaconazole 100 mg tablet,delayed 300 mg PO DAILY 02/23/24 02/29/24 History release prednisone 5 mg tablet 5 mg PO DAILY 02/23/24 02/29/24 History timolol maleate 0.5 % eye drops 1 drp Eye-Right BID 02/23/24 02/29/24 History glycerin (adult) 1 supp OH DAILY constipation #25 ea 02/26/24 02/29/24 Rx levothyroxine 88 mcg tablet 88 mcg PO DAILYDM 30 days #30 tabs 02/26/24 02/29/24 Rx (Synthroid) polyethylene glycol 3350 17 gram 17 g PO DAILY #30 ea 02/26/24 02/29/24 Rx oral powder packet (HealthyLax) pantoprazole 40 mg tablet,delayed 40 mg PO DAILY #90 tabs 02/29/24 02/29/24 Rx release prednisolone acetate 1 % eye 1 drp Eye-Both 02/29/24 02/29/24 History drops,suspension sodium zirconium cyclosilicate 5 5 g PO DAILY 02/29/24 02/29/24 History gram oral powder packet (Lokelma) New Prescriptions to Start Prescriptions: glycerin (adult) Cipriano Golden levothyroxine [Synthroid] Cipriano Golden polyethylene glycol 3350 [HealthyLax] Cipriano Golden Allergies Allergy/AdvReac Type Severity Reaction Status Date / Time cefepime Allergy Mild Rash Verified 02/29/24 09:53 oxycodone Allergy Mild Rash Verified 02/29/24 09:53 Discharge Plan Disposition Patient Disposition: Home, Self-Care Condition: Fair Discharge Order Discharge Orders: Discharge Order (Routine); Ordered 02/26/24 Ordered By: Cipriano Golden Follow up Plan Follow up with: Carlos Dominguez DO [Staff Physician] - 02/29/24 11:00 am (Please come to your Physical therapy appointment on February 28 at 0800. Thank you! ) Prescriptions/Medication Reconciliation: New polyethylene glycol 3350 [HealthyLax] 17 gram Powder In Packet 17 g PO DAILY Qty: 30 0RF Rx Instructions: Take 2 scoops for the first week, then do 1 scoop daily. levothyroxine [Synthroid] 88 mcg Tablet 88 mcg PO DAILYDM 30 Days Qty: 30 0RF glycerin (adult) Suppository 1 supp OH DAILY Qty: 25 0RF Rx Instructions: Do 1 suppository daily for 1 week, then use as needed. Continued carvedilol 3.125 mg tablet 3.125 mg PO BID Patient Comments: TAKE 1 TABLET BY MOUTH TWICE DAILY WITH MEALS valsartan 40 mg tablet 40 mg PO BID Patient Comments: TAKE 1 TABLET BY MOUTH TWICE DAILY rosuvastatin 5 mg tablet 5 mg PO DAILY Patient Comments: TAKE 1 TABLET BY MOUTH ONCE DAILY prasugrel 10 mg tablet 10 mg PO DAILY posaconazole 100 mg tablet,delayed release (DR/EC) 300 mg PO DAILY Patient Comments: TAKE 3 TABLETS BY MOUTH ONCE DAILY WITH BREAKFAST mycophenolate mofetil 250 mg Capsule 250 mg PO BID prednisone 5 mg Tablet 5 mg PO DAILY cyclosporine 25 mg Capsule 25 mg PO BID aspirin 81 mg Tablet 81 mg PO DAILY brimonidine 0.2 % drops 1 drp Eye-Right TID Patient Comments: INSTILL 1 DROP INTO RIGHT EYE THREE TIMES DAILY timolol maleate 0.5 % drops 1 drp Eye-Right BID Discontinued levothyroxine 137 mcg tablet 137 mcg PO DAILY Patient Comments: TAKE 1 TABLET BY MOUTH ONCE DAILY No Action Lokelma 5 gram powder in packet 5 g PO DAILY prednisolone acetate 1 % drops,suspension 1 drp Eye-Both pantoprazole 40 mg tablet,delayed release (DR/EC) 40 mg PO DAILY Qty: 90 1RF Other Ambulatory Orders: Rehab Eval, OP (Routine) Timeframe: 1 Week Facility: [facility] - Location: Physical Therapy Ordered By: Cipriano Golden Problem Reconciliation Problems Reviewed?: Yes Patient Discharge Instructions Additional Instructions: Take MiraLAX 17 g twice a day for the next week, then take daily. Will need to have at least 1-2 bowel movements a day. Take glycerin suppository daily for the next week, then take as needed after that. It looks like your levothyroxine dose was too high based on blood work. I have decreased it to 88 mcg. He will need to follow-up with your PCP to repeat labs in 4 to 6 weeks. Patient Instructions: Neurogenic Bladder -- Adult, DI for Urinary Tract Infection (UTI), DI for Constipation, DI for Ventral Hernia, Catheter-Associated Urinary Tract Infection Print Language: [place] Providers Primary Care Provider: Leo Estrella Admit Provider: Cipriano Golden Attending Provider: Cipriano Golden
[2024-02-26 15:45] LABS: Chloride 103 mmol/L (98-107); Sodium 133 mmol/L (136-145)
[2024-02-26 15:48] LABS: Blood Urea Nitrogen 13 mg/dl (9-20); Creatinine Clearance Estimated 55 mL/min (50-200); Estimated Glomerular Filt Rate 110 ml/min (>60); GFR (African American) 133 ML/MIN (>60)
[2024-02-26 15:49] LABS: Calcium 8.2 mg/dl (8.4-10.2); Carbon Dioxide 24 mmol/L (22.0-30.0); Glucose 144 mg/dl (74-100)
--- NOTE | 2024-02-27 10:21 | SW/DCPLANNER ---
Spoke with patient on the phone. Patient stated that he is doing well and that he has no concerns or questions at this time. Patient stated that he picked up his new medicine and is aware of his upcoming appointments. Patient stated that he was taken care of and had the best nurses and DR while being in the hospital. Bg Crisostomo
== END 2024-02-26 16:20 | disposition home or self-care (01) | DRG 389 ==
LOC: ER 22:41 → 2ND 02-23 00:32
PROVIDERS: Physician Assistant; Admitting Provider Student in an Organized Health Care Education/Training Program; Emergency Provider Student in an Organized Health Care Education/Training Program; PCP Family Medicine; Visit Provider Student in an Organized Health Care Education/Training Program
DX: K56.41 Fecal impaction (principal); I69.354 Hemiplegia and hemiparesis following cerebral infarction affecting left non-dominant side; N39.0 Urinary tract infection, site not specified; Z94.4 Liver transplant status; K43.9 Ventral hernia without obstruction or gangrene; N31.9 Neuromuscular dysfunction of bladder, unspecified; Z79.899 Other long term (current) drug therapy; E03.9 Hypothyroidism, unspecified
CPT/HCPCS: 36415; 74176; 80048; 80053; 81001; 83605; 83735; 84439; 84443; 85025; 87040; 87086; 97116; 97162; 97530; 99285; G0378; J1650; J2543; J3370; J3475; J7030; J7050; J7512

== ENCOUNTER 2024-02-29 10:58 | Outpatient (CLI) | payer MEDICARE, SELFPAY ==
[2024-02-29 12:33] LABS: Blood Urea Nitrogen 17 mg/dl (9-20); Calcium 9.5 mg/dl (8.4-10.2); Carbon Dioxide 32 mmol/L (22.0-30.0); Chloride 97 mmol/L (98-107); Estimated Glomerular Filt Rate 73 ml/min (>60); GFR (African American) 88 ML/MIN (>60); Glucose 98 mg/dl (74-100); Sodium 135 mmol/L (136-145)
== END 2024-02-29 23:59 | disposition home or self-care (01) ==
LOC: LAB 10:59
PROVIDERS: PCP Internal Medicine; Visit Provider Internal Medicine
DX: E87.6 Hypokalemia (principal)
CPT/HCPCS: 36415; 80048

== ENCOUNTER 2024-03-19 14:00 | Outpatient (RCR) | payer MEDICARE, SELFPAY ==
--- NOTE | 2024-02-29 11:05 | HMH.PTOPEV ---
PT Outpatient Evaluation Rehab PT Outpatient Evaluation Start: 02/29/24 08:09 Freq: Status: Active Protocol: Document 02/29/24 10:16 JOYCE (Rec: 02/29/24 11:05 JOYCE [id number]) E-signed By Emmett Hayes, PT Outpatient Therapy Subjective History Subjective History This is the initial eval for René Cornejo. Pt is a 73 yo male who presents w/ LE weakness. Pt reports a history of 3 CVAs that has led to global weakness, LE > UE and L > R. Pt reports he was admitted into the hospital on 02/23/24 and states I couldn't move my legs much . Pt has a PMH of cirrhosis resulting in a liver transplant about a year and a half ago. Pt reports pain in his R lower abdomen and R LBP as a result. Reports history of balance difficulties secondary to R eye visual deficits as a result from his CVA, but states improvement. Pt reports a L hip Fx in January 2023. Pt presents to clinic in a power chair and he states he uses it for ambulating. Pt lives at home w/ his and denies having stairs to navigate at home. Pt reports independence w/ most ADLs and transfers, but sometimes requires assistance from his . Pt denies any numbness or tingling in the LEs. Pt has a walker at home and states Im able to take a couple of steps w/ a walker . Pt denies having a pacemaker. New diagnosis of cancer in past 12 No months? Chief Complaint Pain,Weakness Symptom Type Sharp Symptoms Relieved By Rest/Positioning Symptoms Aggravated By Physical Activity Current Functional Limitations Lifting,Housework,Standing, Squatting,Walking,Stairs, Balance,Bending/Stooping Symptom Description Activity Dependent Level of pain today (0-10) 2 Pain scale - at its best (0-10) 0 Pain scale - at its worst (0-10) 7 Hip/Knee Eval MMT right Hip Flexion Strength Grade 4 Good Hip Abduction Strength Grade 4 Good Hip Adduction Strength Grade 4 Good Knee Extension Strength Grade 4 Good Knee Flexion Strength Grade 4 Good left Hip Flexion Strength Grade 2 Poor Hip Abduction Strength Grade 4 Good Hip Adduction Strength Grade 4 Good Knee Extension Strength Grade 2 Poor Knee Flexion Strength Grade 2 Poor Sensation bilateral LE Dermatome Level L1,L2,L3,L4,L5,S1 Comment all WNL Ankle/Foot Eval MMT right Ankle Dorsiflexion Strength Grade 4 Good Ankle Plantarflexion Strength Grade 4 Good left Ankle Dorsiflexion Strength Grade 1 Trace Ankle Plantarflexion Strength Grade 2+ Poor+ Lower Extremity Functional Index Activities Today, do you or would you have any difficulty at all with: a.Any of your usual work, housework or Quite a bit of difficulty school activities b. Your usual hobbies, recreational or Extreme difficulty or unable sporting activities to perform activity c. Getting into or out of the bath Quite a bit of difficulty d. Walking between rooms Quite a bit of difficulty e. Putting on your shoes or socks Quite a bit of difficulty f. Squatting Extreme difficulty or unable to perform activity g. Lifting an object, like a bag of Extreme difficulty or unable groceries from the floor to perform activity h. Performing light activities around Extreme difficulty or unable your home to perform activity i. Performing heavy activities around Extreme difficulty or unable your home to perform activity j. Getting into or out of a car Moderate difficulty k. Walking 2 blocks Extreme difficulty or unable to perform activity l. Walking a mile Extreme difficulty or unable to perform activity m. Going up or down 10 stairs (about 1 Extreme difficulty or unable flight of stairs) to perform activity n. Standing for 1 hour Extreme difficulty or unable to perform activity o. Sitting for 1 hour No difficulty p. Running on even ground Extreme difficulty or unable to perform activity q. Running on uneven ground Extreme difficulty or unable to perform activity r. Making sharp turns while running fast Extreme difficulty or unable to perform activity s. Hopping Extreme difficulty or unable to perform activity t. Rolling over in bed Extreme difficulty or unable to perform activity LEFI Score Lower Extremity Functional Index Score 10 Miscellaneous Dx PT Eval Objective Objective Pt presents in power chair. L Knee varus in standing w/ excessive ER of L hip Outpatient Therapy Assessment Impairments Problems/Impairmments Impaired Range of Motion, Impaired Strength,Impaired Transfers,Impaired Gait Pattern,Impaired Walking, Impaired Standing,Impaired Lifting,Impaired Stair Climbing,Impaired Stepping on Uneven Surface,Impaired Squatting,Impaired Bending, Impaired Balance,Subjective C/ O Pain Prognosis Rehab Potential Good Comment PT services are indicated to increase balance and LE strength for transfers to increase independence and improve QOL, Clinical Impression Consistent with Diagnosis Yes Consistent with LE Weakness Short Term Goals Number of Weeks 3 Increase Strength Yes: 3-/5 MMT Throughout L hip and knee Improve Gait Pattern without Assistive Yes: able to walk 15ft w/ FWW Device w/ mod assist Increase Ability to Stand Yes: able to stand for 5 min w /o increase in pain Improve LEFI Score Yes: increase score by 2 points Decrease Subjective C/O Pain Yes: decrease pain at worst to 5/10 Patient to be Ind w/ HEP Yes: yes [employer]obile [employer]ice Goals Number of Weeks 6 Increase Strength Yes: 3+/5 MMT throughout L hip and knee Improve Transfers Yes: demonstrates independent transfer to bed Increase Ability to Walk Yes: able to walk 30ft w/ FWW w/ mod assist Increase Ability to Stand Yes: able to stand for 10 min Improve LEFI Score Yes: improve score by 4 points Decrease Subjective C/O Pain Yes: pain at worst 4/10 Patient to be Ind w/ Advanced HEP Yes: yes Outpatient Therapy Plan of Care Treatment Plan May Include Therapeutic Exercise Including Home Yes Exercise Program Manual Therapy Techniques Yes Neuromuscular Re-education Yes Therapeutic Activities to Return to Yes Previous Functional/Work Level Gait Training Yes ADL/Self Care Education Yes Dry Needling Yes Thermal Modalities Yes Electrical Stimulation Yes Ultrasound/Phonophoresis Yes Orthotics/Bracing/Splinting Yes Massage Yes Eval/Re-Eval Yes Frequency Times per week 2-3 days per week Duration Number of Weeks 4-6 weeks Addendums This patient is a candidate for social No or vocational rehab? Patient/Guardian verbally acknowledges Yes understanding of treatment program and consents to further treatment? Patient/Guardian verbally acknowledges Yes understanding of diagnosis, prognosis and goals for treatment? Eval Complexity PT Charges 52559 - High Complexity Shoulder/Elbow Eval Shoulder Objective Measurements Elbow Objective Measurements PHYSICIAN CERTIFICATION: I certify the specified therapy services for René Cornejo are required, authorized, and reviewed every 30 days.
== END 2024-03-19 23:59 | disposition home or self-care (01) ==
LOC: PT 14:00
PROVIDERS: PCP Family Medicine; Visit Provider Student in an Organized Health Care Education/Training Program
DX: R53.1 Weakness (principal); R29.898 Other symptoms and signs involving the musculoskeletal system; I63.9 Cerebral infarction, unspecified
CPT/HCPCS: 97110; 97163; 97530

== ENCOUNTER 2024-03-19 14:59 | Outpatient (CLI) | payer MEDICARE, SELFPAY ==
[2024-03-19 16:23] LABS: Free T4 (Free Thyroxine) 1.74 ng/dl (0.78-2.19)
== END 2024-03-19 23:59 | disposition home or self-care (01) ==
LOC: LAB 15:02
PROVIDERS: PCP Internal Medicine; Visit Provider Internal Medicine
DX: Z13.29 Encounter for screening for other suspected endocrine disorder (principal); E03.9 Hypothyroidism, unspecified
CPT/HCPCS: 36415; 84439; 84443

== ENCOUNTER 2024-04-18 15:00 | Outpatient (RCR) | payer MEDICARE, SELFPAY ==
--- NOTE | 2024-03-29 15:21 | HMH.RHREAS ---
Rehab Reassessment Rehab OP Re-assessment Start: 03/22/24 14:12 Freq: Status: Active Protocol: Document 03/29/24 15:14 PHORNE (Rec: 03/29/24 15:21 PHORNE [id number]) E-signed By Emmett Hayes, PT Lower Extremity Functional Index Activities Today, do you or would you have any difficulty at all with: a.Any of your usual work, housework or Quite a bit of difficulty school activities b. Your usual hobbies, recreational or Quite a bit of difficulty sporting activities c. Getting into or out of the bath Quite a bit of difficulty d. Walking between rooms Quite a bit of difficulty e. Putting on your shoes or socks Quite a bit of difficulty f. Squatting Extreme difficulty or unable to perform activity g. Lifting an object, like a bag of Extreme difficulty or unable groceries from the floor to perform activity h. Performing light activities around Extreme difficulty or unable your home to perform activity i. Performing heavy activities around Extreme difficulty or unable your home to perform activity j. Getting into or out of a car Moderate difficulty k. Walking 2 blocks Extreme difficulty or unable to perform activity l. Walking a mile Extreme difficulty or unable to perform activity m. Going up or down 10 stairs (about 1 Extreme difficulty or unable flight of stairs) to perform activity n. Standing for 1 hour Extreme difficulty or unable to perform activity o. Sitting for 1 hour No difficulty p. Running on even ground Extreme difficulty or unable to perform activity q. Running on uneven ground Extreme difficulty or unable to perform activity r. Making sharp turns while running fast Extreme difficulty or unable to perform activity s. Hopping Extreme difficulty or unable to perform activity t. Rolling over in bed Quite a bit of difficulty LEFI Score Lower Extremity Functional Index Score 12 Rehab Re-assessment Subjective Subjective Pt reports he has less pain overall in the L LE, 5/10 at worst. He continues to report difficulty with ambulation, but feels he is improveing with his endurance and transfers. Objective Objective Notes LEFS: 12 this date vs 10 on IE . MMT R LE: Grossly 4/5 throughout MMT L LE: HIP FLEX 3/5, HIP ABD 4/5, HIP ADD 4/5, KNEE EXT 3-/5, KNEE FLEX 3/5. FTSTS: 54 sec. Standing ~ 5 min with RW without difficulty at this time. Assessment Progress Assessment Progressing as Expected Assessment Notes Pt has shown improvements in overall B LE strength and endurance to activity. However , his transfers remain quite slow and he continues to present with limited standing endurance. Skilled therapy remains indicated to improve strength, improve transfers, and initiate gait training in order to aid pt return to PLOF . Patient goals met ST/6 LT Plan Plan Continue per initial POC. Initial orders for therapy evaluation sent from Dr. Golden with hospitalist team at [facility]. Frequency of Therapy 2 x/wk Duration of therapy 4 wks Time and Billing Re-Eval Time 11 Re-Eval Billing Units 0 Charge for PT reassessment? No PHYSICIAN CERTIFICATION: I certify the specified therapy services for René Cornejo are required, authorized, and reviewed every 30 days.
== END 2024-04-18 23:59 | disposition home or self-care (01) ==
LOC: PT 15:00
PROVIDERS: PCP Family Medicine; Visit Provider Student in an Organized Health Care Education/Training Program
DX: R53.1 Weakness (principal); R29.898 Other symptoms and signs involving the musculoskeletal system; I63.9 Cerebral infarction, unspecified
CPT/HCPCS: 97110; 97530

== ENCOUNTER 2024-05-06 15:00 | Outpatient (RCR) | payer MEDICARE, SELFPAY | END 2024-05-06 23:59 | disposition home or self-care (01) | LOC: PT 15:00 | PROVIDERS: PCP Family Medicine; Visit Provider Student in an Organized Health Care Education/Training Program | DX: R29.898 Other symptoms and signs involving the musculoskeletal system (principal); I63.9 Cerebral infarction, unspecified | CPT/HCPCS: 97110; 97116; 97530 ==

== ENCOUNTER 2024-05-13 07:07 | Emergency (ER) | payer MEDICARE, SELFPAY ==
[2024-05-13] VITALS (12 sets, daily range): BP systolic 104–152; BP diastolic 61–82; PULSE 63–79; RESP 15–25; TEMP 37.1; O2SAT 92–98; BMI 18.8
--- NOTE | 2024-05-13 07:30 | ECG_ITS ---
APPROVED REPORT Exam: Resting ECG HR:78 bpm ECG Measurements Heart Rate 78 AXES ME 144 P 67 QRSd 130 QRS 81 QT 410 T 88 QTc 443 Conclusion SINUS RHYTHM RIGHT BUNDLE BRANCH BLOCK [120+ ms QRS DURATION, UPRIGHT V1, 40+ ms S IN I/aVL/V4/V5/V6] ABNORMAL ECG INTERPRETATION BASED ON A DEFAULT AGE OF 40 YEARS No STEMI Electronically signed by : JORDI BARRETT, 05/14/2024 06:49:53
--- NOTE | 2024-05-13 07:34 | ED_ITS ---
Discharge Plan Disposition Patient Disposition: Home, Self-Care Condition: Fair Prescriptions Prescriptions: New ciprofloxacin HCl 500 mg tablet 500 mg PO BID 10 Days Qty: 20 0RF No Action prednisolone acetate 1 % drops,suspension 1 drp Eye-Both BID pantoprazole 40 mg tablet,delayed release (DR/EC) 40 mg PO DAILY Qty: 90 1RF levothyroxine [Synthroid] 88 mcg tablet 88 mcg PO DAILYDM 30 Days Qty: 30 3RF carvedilol 3.125 mg tablet 3.125 mg PO BID Patient Comments: TAKE 1 TABLET BY MOUTH TWICE DAILY WITH MEALS valsartan 40 mg tablet 40 mg PO BID Patient Comments: TAKE 1 TABLET BY MOUTH TWICE DAILY rosuvastatin 5 mg tablet 5 mg PO DAILY Patient Comments: TAKE 1 TABLET BY MOUTH ONCE DAILY prasugrel HCl 10 mg tablet 10 mg PO DAILY posaconazole 100 mg tablet,delayed release (DR/EC) 300 mg PO DAILY Patient Comments: TAKE 3 TABLETS BY MOUTH ONCE DAILY WITH BREAKFAST mycophenolate mofetil 250 mg Capsule 250 mg PO BID prednisone 5 mg Tablet 5 mg PO DAILY cyclosporine 25 mg Capsule 25 mg PO BID aspirin 81 mg Tablet 81 mg PO DAILY brimonidine 0.2 % drops 1 drp Eye-Right TID Patient Comments: INSTILL 1 DROP INTO RIGHT EYE THREE TIMES DAILY timolol maleate 0.5 % drops 1 drp Eye-Right BID polyethylene glycol 3350 [HealthyLax] 17 gram Powder In Packet 17 g PO DAILY Qty: 30 0RF Rx Instructions: Take 2 scoops for the first week, then do 1 scoop daily. glycerin (adult) Suppository [address] DAILY Qty: 25 0RF Rx Instructions: Do 1 suppository daily for 1 week, then use as needed. Referrals Follow up/Referrals: Carlos Dominguez DO [Primary Care Provider] - See instructions Activity Restrictions/Add. Instructions Additional Instructions/Restrictions: Follow up with Dr. Dominguez in the next 1-2 days for recheck of labs as your kidney function was a little low. Take the antibiotics as prescribed for your urinary tract infection. Drink plenty of fluids. If you develop any new or worsening symptoms, such as fever, worsening pain, confusion, or if you become concerned for your health for any reason, return to the ED for evaluation Clinical Impressions Clinical Impression: Acute UTI, LUKE (acute kidney injury) Print Language Print Language: Uzbek Discharge ED Provider: Robinson Jo General Adult HPI General Chief complaint: Weakness Stated complaint: back pain Time Seen by Provider: 05/13/24 07:13 History of Present Illness HPI narrative: René Cornejo is a 74-year-old man status post liver transplant due to liver cancer, recurrent UTIs, fluctuating potassium levels, previous stroke, hypertension who presents to the emergency department with his protein purification scientist for concern for back pain. [employer] provides most of the history. She states that over the last 2 days, he has been increasingly restless complaining of bodyaches, including right lower back pain. She states that he has had recurrent UTIs in the past and has presented similarly in the past when he has had urinary tract infections. He has had constipation and fecal impactions in the past but has been having normal bowel movements. He has not had any fevers or chest pain or shortness of breath. She states that he was started on a new medication for his transplant maintenance approximately 1 month ago. She notes that he self caths due to neurogenic bladder and has had a stroke in the past. He reports he was unable to get up/assist with getting up today due to pain. He denies any abdominal pain, nausea or vomiting. Related Data Home Medications ?Medication ?Instructions ?Recorded ?Confirmed carvedilol 3.125 mg tablet 3.125 mg PO BID 11/28/23 05/13/24 prasugrel HCl 10 mg tablet 10 mg PO DAILY 11/28/23 05/13/24 rosuvastatin 5 mg tablet 5 mg PO DAILY 11/28/23 05/13/24 valsartan 40 mg tablet 40 mg PO BID 11/28/23 05/13/24 aspirin 81 mg tablet 81 mg PO DAILY 02/23/24 05/13/24 brimonidine 0.2 % eye drops 1 drp Eye-Right TID 02/23/24 05/13/24 cyclosporine 25 mg capsule 25 mg PO BID 02/23/24 05/13/24 mycophenolate mofetil 250 mg 250 mg PO BID 02/23/24 05/13/24 capsule posaconazole 100 mg tablet,delayed 300 mg PO DAILY 02/23/24 05/13/24 release prednisone 5 mg tablet 5 mg PO DAILY 02/23/24 05/13/24 timolol maleate 0.5 % eye drops 1 drp Eye-Right BID 02/23/24 05/13/24 prednisolone acetate 1 % eye 1 drp Eye-Both BID 02/29/24 05/13/24 drops,suspension Previous Rx's ?Medication ?Instructions ?Recorded glycerin (adult) [address] DAILY constipation #25 ea 02/26/24 polyethylene glycol 3350 17 gram 17 g PO DAILY #30 ea 02/26/24 oral powder packet (HealthyLax) pantoprazole 40 mg tablet,delayed 40 mg PO DAILY #90 tabs 02/29/24 release levothyroxine 88 mcg tablet 88 mcg PO DAILYDM 30 days #30 tabs 03/27/24 (Synthroid) ciprofloxacin HCl 500 mg tablet 500 mg PO BID 10 days #20 tabs 05/13/24 Allergies Allergy/AdvReac Type Severity Reaction Status Date / Time cefepime Allergy Mild Rash Verified 02/29/24 09:53 oxycodone Allergy Mild Rash Verified 02/29/24 09:53 [facility] Disclaimer: The information contained in this section may have been updated after the patient was seen, as this information can be updated by other users. Medical History (Updated 05/13/24 @ 09:35 by Robinson Jo MD) Hypokalemia Fecal impaction Acute UTI Acute right flank pain Heart failure Myocardial injury Severe sepsis Generalized weakness Hx of fracture of hip Cirrhosis of liver Hypothyroid Acute constipation H/O urinary retention Closed left femoral fracture Acute hyperkalemia Fall Sepsis Cough Acute UTI Urinary tract infection UTI (urinary tract infection) Surgical History (Updated 03/23/24 @ 00:00 by Lul Clarke) History of hip surgery History of surgery on lower extremity Liver transplant recipient Social History Smoking Status: Never smoker alcohol intake: never substance use type: denies use current occupational status: employed Travel in the last 8 weeks: None household members: spouse housing: house current occupational exposures/hazards: No caffeine: Yes Have you lived/traveled outside [place] in past 30 days?: No Contact w/someone who lives/traveled outside [place] past 30 days?: No Exposure to someone with infectious disease in past 14 days?: No Do you have a fever (greater than 100.4 F or 38 C)?: No Have you tested positive for COVID-19: No Exposed to someone with COVID-19 in past 14 days?: No Do you have a sore throat?: No Do you have a cough?: No Do you have any weakness?: No Do you have any diarrhea?: No Are you experiencing any unusual bleeding?: No Do you have any muscle aches/pain?: Yes Do you have any abdominal pain?: No Are you experiencing loss of taste or smell?: No Other Medical History Have you received the Flu Vaccine for this season: No Have you received the Pneumonia Vaccine: No ROS Obtained: Yes Systems reviewed as appropriate & no additional complaints except as documented Physical Exam General General appearance: alert and in no apparent distress Comment: Thin Head Head exam: atraumatic Eye Eye exam: Present normal appearance ENT ENT exam: Present normal external ear exam Neck Neck exam: Present full ROM Chest Chest inspection: Present symmetric chest wall rise Respiratory Respiratory exam: Present normal lung sounds bilaterally; Absent respiratory distress, wheezes or stridor Cardiovascular Cardiovascular exam: Present regular rate and normal rhythm Abdominal Exam Abdominal exam: Present soft; Absent distention, tenderness, guarding or rigidity exam: Present deferred Extremities Exam Extremities exam: Present normal inspection Back Exam Back exam: Present normal inspection Comment: No midline thoracic or lumbar spine tenderness. No tenderness over the sacral region. No soft tissue tenderness over the paraspinal lumbar or gluteal area. No rashes or swelling are noted. Neurological Exam Neurological exam: Present alert and oriented X3 Psychiatric Psychiatric exam: Present normal affect Skin Skin exam: Present warm and dry Medical Decision Making Medical Records Screening: Per USPSTF and CDC recommendations, given the prevalence of disease in our region, it is our hospital?s policy to screen for HIV and viral Hepatitis for all patients aged 18 and over and those with ongoing risk factors. [place] Inquiry Pt receiving controlled substance: No Vital Signs: 05/13/24 07:12 05/13/24 07:15 05/13/24 07:15 Temperature 98.8 F Temperature Source Oral Pulse Rate 72 72 Pulse Rate [Left] 73 Respiratory Rate 19 19 16 Blood Pressure 152/82 H 124/78 Blood Pressure [Left Arm] 152/82 H Blood Pressure Mean 105 93 Blood Pressure Mean [Left Arm] 105 Blood Pressure Source [Left Arm] Automatic Cuff 02 Sat by Pulse Oximetry 97 97 97 Oxygen Delivery Method Room Air 05/13/24 07:30 05/13/24 07:51 05/13/24 08:00 Temperature Temperature Source Pulse Rate 74 69 63 Pulse Rate [Left] Respiratory Rate 22 22 25 H Blood Pressure 117/64 117/66 112/68 Blood Pressure [Left Arm] Blood Pressure Mean Blood Pressure Mean [Left Arm] Blood Pressure Source [Left Arm] 02 Sat by Pulse Oximetry 96 93 L 92 L Oxygen Delivery Method Room Air Room Air Room Air 05/13/24 08:15 05/13/24 08:30 05/13/24 08:45 Temperature Temperature Source Pulse Rate 74 76 79 Pulse Rate [Left] Respiratory Rate 16 23 16 Blood Pressure 126/70 118/67 130/66 Blood Pressure [Left Arm] Blood Pressure Mean 82 Blood Pressure Mean [Left Arm] Blood Pressure Source [Left Arm] 02 Sat by Pulse Oximetry 96 98 97 Oxygen Delivery Method Room Air Room Air 05/13/24 09:00 05/13/24 09:15 05/13/24 09:30 Temperature Temperature Source Pulse Rate 75 77 77 Pulse Rate [Left] Respiratory Rate 21 19 15 Blood Pressure 106/68 L 106/63 L 104/61 L Blood Pressure [Left Arm] Blood Pressure Mean 77 Blood Pressure Mean [Left Arm] Blood Pressure Source [Left Arm] 02 Sat by Pulse Oximetry 96 96 95 Oxygen Delivery Method 05/13/24 10:05 Temperature 98.8 F Temperature Source Pulse Rate 77 Pulse Rate [Left] Respiratory Rate 17 Blood Pressure 104/61 L Blood Pressure [Left Arm] Blood Pressure Mean Blood Pressure Mean [Left Arm] Blood Pressure Source [Left Arm] 02 Sat by Pulse Oximetry Oxygen Delivery Method Room Air Lab Data Lab Results 05/13/24 07:13: WBC 17.6 H, RBC 3.81 L, Hgb 12.2 L, Hct 35.9 L, MCV 94.2 H, MCH 32.0 H, MCHC 34.0, RDW 14.6, Plt Count 263, MPV 11.2 H, Neut % (Auto) 81.4 H, Lymph % (Auto) 10.9, [place] % (Auto) 6.7, Eos % (Auto) 0.2, Baso % (Auto) 0.2, N eut # (Auto) 14.4 H, Lymph # (Auto) 1.9, [place] # (Auto) 1.2 H, Eos # (Auto) 0.0, Baso # (Auto) 0.0, Total Counted 100, Neutrophils % (Manual) 77 H, Lymphocytes % (Manual) 19, Monocytes % (Manual) 4, Platelet Estimate Normal, RBC Morphology Normal, Sodium 134 L, Potassium 4.6, Chloride 101, Carbon Dioxide 26, Anion Gap 11.6, BUN 44 H, Creatinine 1.50 H, Estimated Creat Clear 34, Estimated GFR 46 L, Est GFR ( Amer) 55 L, Glucose 87, Calcium 9.0, Magnesium 1.5 L, Total Bilirubin 1.2, AST 26, ALT 17, Alkaline Phosphatase 132 H, Total Protein 6.1 L, Albumin 3.6, Globulin 2.5, Albumin/Globulin Ratio 1.4, Lipase 27 05/13/24 07:27: VBG pH 7.38, VBG pCO2 43.7, VBG pO2 32.9, VBG HCO3 25.3, VBG Total CO2 26.7, VBG O2 Saturation 65.1, VBG Base Excess 0.2, VBG Lactic Acid 1.8 05/13/24 07:45: Urine Color Yellow, Urine Appearance Clear, Urine pH 6.5, Ur Specific [place] 1.020, Urine Protein Trace, Urine Glucose (UA) Negative, Urine Ketones Negative, Urine Blood Negative, Urine Nitrate Negative, Urine Bilirubin Negative, Urine Urobilinogen 1.0, Ur Leukocyte Esterase 1+ A, Urine RBC None, Urine WBC 10-20, Ur Squamous Epith Cells 3-5, Urine Bacteria 2+ 05/13/24 07:47: SARS-CoV-2 (PCR) Not detected, Influenza A Untype (PCR) Not detected, Influenza Type B (PCR) Not detected 05/13/24 07:13 05/13/24 07:13 Orders (Tests/Meds): ED MEDICATIONS Discontinued Medications Generic Name Dose Route Start Last Admin Trade Name Freq PRN Reason Stop Dose Admin Acetaminophen 1,000 mg 05/13/24 07:27 05/13/24 08:01 Acetaminophen 500mg Tab PO 05/13/24 07:28 1,000 mg ONCE ONE Administration ORDERS Category Date Time Status CBC w/Auto Diff [Complete Blood Count Auto Diff] Stat Lab 05/13/24 07:13 Completed CMP [Comprehensive Metabolic Panel] Stat Lab 05/13/24 07:13 Completed Lipase Stat Lab 05/13/24 07:13 Completed Magnesium Stat Lab 02/24/25 07:13 Completed Rapid PCR Covid and Flu A/B Stat Lab 05/13/24 07:47 Completed Urinalysis and Microscopic Stat Lab 05/13/24 07:45 Completed Urine Culture Stat Micro 05/13/24 07:45 Received VBG [Venous Blood Gas] Stat RT 05/13/24 07:27 Completed ECG Data Tracing #1: I reviewed this ECG and interpreted as documented below: EKG interpreted by me personally. Normal sinus rhythm with ventricular rate of 78 bpm. Right bundle branch block. No ST elevations or depressions. QTc normal at 443. CT interval normal at 144. Medical Decision Narrative: This is a 74-year-old male with a history of liver transplant due to liver cancer, hypertension, recurrent UTIs and neurogenic bladder requiring self- catheterization, stroke, cardiac stents/CO who presents to the emergency department with protein purification scientist for concern for lower back pain x 2 days and bodyaches. She reports that he has had urinary tract infections that have presented similarly in the past. He denies any abdominal pain. He reports pain to his right lower back. He has been afebrile. On arrival, patient is normotensive, afebrile, heart rate within normal limits, breathing comfortably on room air with oxygen saturation 97% SpO2. Physical exam, stated above, revealed chronically ill but nontoxic-appearing male in no distress. He is answering questions appropriately and following commands. He is complaining of pain in his right lumbar/sacral area but does not have any tenderness in this area. No midline spinal tenderness. Abdomen is soft, nontender nondistended. Cardiopulmonary exam is unremarkable. He appears well-hydrated. He does not have any CVA tenderness. Differential diagnosis includes, but is not limited to: UTI, electrolyte derangement, viral respiratory illness, musculoskeletal pain, among others. Workup included: CMP, CBC, VBG, lipase, urinalysis. Considerations were given to obtaining x-ray imaging of the pelvis and CT imaging the abdomen and pelvis, however patient's abdomen is nontender and he does not have any bony tenderness on exam. Low concern for constipation as he has been having bowel movements at home. Patient's workup shows leukocytosis of 17.6 with left shift. VBG unremarkable with normal lactate of 1.8. Mildly low sodium of 134 but electrolytes otherwise within normal limits. Patient does have a mild LUKE with BUN of 44 and creatinine of 1.5. This is consistent with a prerenal pattern. Patient's magnesium is mildly low at 1.5 but grossly nonactionable. Liver enzymes within normal limits. Urine demonstrates concerning signs for infection with 1+ leukocyte Estrace, 10-20 white blood cells, bacteria present (2+). Negative nitrates. Negative for COVID/flu. Low concern for sepsis or pyelonephritis at this time. Discussions were had with patient and his protein purification scientist. They note that he has close follow-up with his primary care physician and can get in within the next 1 to 2 days. They were comfortable attempting a trial of oral antibiotics for his UTI with close follow-up for recheck of his creatinine/kidney function while hydrating at home. Admission was considered, however they prefer to go home. Will discharge the patient with a prescription for ciprofloxacin as he has had this before and it has helped his urinary tract infections in the past. He was then discharged from the emergency department in stable condition. Critical Care Critical Care Time Critical Care Time: No
[2024-05-13 07:37] LABS: Lactate Venous 1.8 mmol/L (0.4-2.0); VBG Base Excess 0.2 mmol/L (-2.4-2.3); VBG HCO3 25.3 mmol/L (23-30); VBG Oxygen Saturation 65.1 % (50-70); VBG PCO2 43.7 mmol/L (35-51); VBG PH 7.38 mmol/L (7.31-7.41); VBG PO2 32.9 mmol/L (28-40); VBG Total CO2 26.7 mmol/L (23-27)
[2024-05-13 07:42] LABS: Basophils % 0.2 % (0.1-2.0); Eosinophils % 0.2 % (0.1-12.0); Hematocrit 35.9 % (42.0-52.0); Hemoglobin 12.2 g/dL (14.1-18.0); Lymphocytes # 1.9 K/mm3 (0.7-4.5); Lymphocytes % 10.9 % (10-50); Mean Corpuscular Volume 94.2 fl (80-94); Mean Platelet Volume 11.2 fl (7.4-10.4); Monocytes # 1.2 K/mm3 (0.1-1.0); Monocytes % 6.7 % (1.7-9.3); Neutrophils # 14.4 K/mm3 (1.8-7.8); Neutrophils % 81.4 % (37.0-80.0); Platelet Count 263 K/mm3 (142-424); Red Blood Count 3.81 M/mm3 (4.60-6.20); Red Cell Distribution Width 14.6 % (11.5-17.5); White Blood Count 17.6 K/mm3 (4.8-10.8)
[2024-05-13 07:44] LABS: MANUAL DIFFERENTIAL MANUAL DIFFERENTIAL (MANUAL DIFF)
[2024-05-13 07:48] LABS: Microscopic, Urine URINE MICROSCOPIC (MICROSCOPIC)
[2024-05-13 07:50] LABS: Coronavirus 19, PCR Not Detected (NotDetected); Influenza A, PCR Not Detected (NotDetected); Influenza B, PCR Not Detected (NotDetected)
[2024-05-13 07:55] LABS: Appearance,Urine CLEAR (Clear); Bilirubin,Urine Negative (Negative); Blood, Urine Negative (Negative); Color,Urine YELLOW (Yellow); Glucose,Urine (UA) Negative (Negative); Ketones,Urine Negative (Negative); Leukocyte Esterase,Urine 1+ (Negative); Nitrate,Urine Negative (Negative); PH,Urine 6.5 (5.0-8.5); Protein,Urine TRACE (Negative)
[2024-05-13 07:58] LABS: Albumin Level 3.6 g/dl (3.5-5.0); Chloride 101 mmol/L (98-107)
[2024-05-13 07:59] LABS: Potassium 4.6 mmoL/L (3.5-5.1); Sodium 134 mmol/L (136-145)
[2024-05-13 08:01] LABS: Alanine Aminotransferase 17 U/L (12-78); Albumin/Globulin Ratio 1.4 (1.1-1.8); Anion Gap 11.6 mEq/L (5-15); Aspartate Amino Transferase 26 U/L (17-59); Blood Urea Nitrogen 44 mg/dl (9-20); Carbon Dioxide 26 mmol/L (22.0-30.0); Estimated Glomerular Filt Rate 46 ml/min (>60); GFR (African American) 55 ML/MIN (>60); Globulin 2.5 g/dL (1.3-3.2); Total Protein,Serum 6.1 g/dl (6.3-8.2)
[2024-05-13] MEDS: ACETAMINOPHEN 500MG TAB 1000 MG PO (08:01)
[2024-05-13 08:02] LABS: Alkaline Phosphatase 132 U/L (38-126); Bilirubin,Total 1.2 mg/dl (0.2-1.3); Glucose 87 mg/dl (74-100); Magnesium 1.5 mg/dl (1.6-2.3)
--- NOTE | 2024-05-13 08:12 | PC.NURSE ---
0715- Patient arrived via EMS from home, to room 10. Placed on cardiac, BP, and SpO2 monitoring. 0730- EKG completed, given to Dr. Tillman. 0745- In/out cath urine collected per hospital policy. Clear, yellow urine collected, labeled at bedside using 2 patient identifiers, sent for analysis. Patient cleaned of incontinence, bed in low position, side rails raised. Patient expresses no needs at this time. remains at bedside.
[2024-05-13 08:17] LABS: Creatinine Clearance Estimated 34 mL/min (50-200)
[2024-05-13 08:36] LABS: Lymphocytes % 19 % (10-50); Monocytes % 4 % (2-9); Neutrophils % 77 % (42-76); Platelet Estimate Normal; RBC Morphology Normal; Total Cells Counted 100
[2024-05-13 08:47] LABS: Bacteria,Urine 2+ /lpf
--- NOTE | 2024-05-13 09:15 | PC.NURSE ---
0845- Patient rounding completed, patient appears to be sleeping, respirations are even and unlabored, skin is warm, pink, an dry. Patient's at bedside, updated on plan of care, no needs expressed at this time. 0915- Med rec completed, no change in condition, awaiting results and further orders.
[2024-05-13 09:33] LABS: Lipase 27 U/L (23-300)
--- NOTE | 2024-05-13 09:34 | PC.NURSE ---
Rounded on pt to see if they needed anything. Pt had no needs at this time
--- NOTE | 2024-05-15 08:36 | PC.NURSE ---
URINE CULTURE DISCUSSED WITH DR OCHOA, NO NEW ORDERS
--- NOTE | 2024-05-16 12:17 | PC.NURSE ---
URINE CULTURE DISCUSSED WITH DR RODRIGUEZ, NEW ORDERS FOR ABX CHANGE. SPOKE WITH PT. INSTRUCTED PT TO STOP CIPRO AND START BACTRIM. [facility] PT V/U
== END 2024-05-13 10:06 | disposition home or self-care (01) ==
PROVIDERS: Emergency Provider Student in an Organized Health Care Education/Training Program; PCP Internal Medicine
DX: N17.9 Acute kidney failure, unspecified (principal); N39.0 Urinary tract infection, site not specified; M54.50 Low back pain, unspecified; M79.10 Myalgia, unspecified site
CPT/HCPCS: 80053; 81001; 82803; 83690; 83735; 85007; 85025; 85027; 87086; 87088; 87186; 87636; 93005; 99283

== ENCOUNTER 2024-06-11 15:52 | Outpatient (CLI) | payer MEDICARE, SELFPAY ==
[2024-06-11 17:45] LABS: Alanine Aminotransferase 13 U/L (12-78); Albumin/Globulin Ratio 1.8 (1.1-1.8); Alkaline Phosphatase 113 U/L (38-126); Anion Gap 13.5 mEq/L (5-15); Aspartate Amino Transferase 20 U/L (17-59); Bilirubin,Total 0.9 mg/dl (0.2-1.3); Blood Urea Nitrogen 39 mg/dl (9-20); Calcium 9.8 mg/dl (8.4-10.2); Carbon Dioxide 24 mmol/L (22.0-30.0); Chloride 104 mmol/L (98-107); Estimated Glomerular Filt Rate 46 ml/min (>60); GFR (African American) 55 ML/MIN (>60); Globulin 2.2 g/dL (1.3-3.2); Glucose 99 mg/dl (74-100); Potassium 5.5 mmoL/L (3.5-5.1); Sodium 136 mmol/L (136-145); Total Protein,Serum 6.2 g/dl (6.3-8.2)
[2024-06-11 18:13] LABS: Thyroid Stimulating Hormone 0.69 uIU/mL (0.465-4.68)
== END 2024-06-11 23:59 | disposition home or self-care (01) ==
LOC: LAB 15:53
PROVIDERS: PCP Internal Medicine; Visit Provider Internal Medicine
DX: E03.9 Hypothyroidism, unspecified (principal); Z13.29 Encounter for screening for other suspected endocrine disorder
CPT/HCPCS: 36415; 80053; 84443

== ENCOUNTER 2024-06-13 15:00 | Outpatient (RCR) | payer MEDICARE, SELFPAY | END 2024-06-13 23:59 | disposition home or self-care (01) | LOC: PT 15:00 | PROVIDERS: PCP Family Medicine; Visit Provider Student in an Organized Health Care Education/Training Program | DX: R29.898 Other symptoms and signs involving the musculoskeletal system (principal); Z86.73 Personal history of transient ischemic attack (TIA), and cerebral infarction without residual deficits | CPT/HCPCS: 97110; 97116 ==

== ENCOUNTER 2024-07-16 15:00 | Outpatient (RCR) | payer MEDICARE, SELFPAY | END 2024-07-16 23:59 | disposition home or self-care (01) | LOC: PT 15:00 | PROVIDERS: PCP Family Medicine; Visit Provider Student in an Organized Health Care Education/Training Program | DX: R53.1 Weakness (principal); R29.898 Other symptoms and signs involving the musculoskeletal system; I63.9 Cerebral infarction, unspecified | CPT/HCPCS: 97110; 97116 ==

== ENCOUNTER 2024-07-23 14:51 | Outpatient (RCR) | payer MEDICARE, SELFPAY | END 2024-07-23 23:59 | disposition home or self-care (01) | LOC: PT 14:51 | PROVIDERS: PCP Family Medicine; Visit Provider Student in an Organized Health Care Education/Training Program | DX: M21.372 Foot drop, left foot (principal); B44.9 Aspergillosis, unspecified; Z87.81 Personal history of (healed) traumatic fracture; Z94.4 Liver transplant status | CPT/HCPCS: 97116 ==

== ENCOUNTER 2024-07-26 10:00 | Outpatient (CLI) | payer MEDICARE, SELFPAY ==
[2024-07-26 13:23] LABS: Microscopic, Urine URINE MICROSCOPIC (MICROSCOPIC)
[2024-07-26 14:13] LABS: Appearance,Urine CLEAR (Clear); Bilirubin,Urine Negative (Negative); Blood, Urine Negative (Negative); Color,Urine YELLOW (Yellow); Glucose,Urine (UA) Negative (Negative); Ketones,Urine Negative (Negative); Leukocyte Esterase,Urine 1+ (Negative); Nitrate,Urine Negative (Negative); Protein,Urine TRACE (Negative); Specific Gravity, Urine 1.015 (1.005-1.030)
[2024-07-26 14:50] LABS: Bacteria,Urine 4+ /lpf
--- OUTSIDE RECORDS SUMMARY | 2024-07-29 10:48 | XMS_ITS | Data Portability ---
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 Plan of Treatment Reminders Order Date Submit Date Provider Last Modified By Organization Details Last Modified Time Details Appointments FOLLOW UP [facility] 2024 11:00A M CARLOS VIEIRA MD Not available Not available Not available Lab None recorded . Referral None recorded . Procedures None recorded . Surgeries None recorded . Imaging None recorded . Medication Orders None recorded . Patient TargetsNo targets recorded. Patient Instructions Encounter Date Encounter Id Patient Instructions Last Modified By Organization Details Last Modified Time 06/30/2020 [id number] 1. Recommend partial uvulectomy. Full risks, complications, and benefits of operative versus non-operative intervention have been thoroughly discussed. Understanding was expressed, informed consent given, and we will proceed with the discussed operative treatment plan. There were no questions for me at the end of the office visit. 2. 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 Unfortunately it has become more edematous and affecting his sleep. He has also had more trouble swallowing. I recommended a partial uvulectomy for him. I had a long discussion with him regarding goals, risks, potential complications as well as proposed benefits regarding the procedure. Possible operative/postopera tive complications we discussed included, but were not limited to: postoperative infection, bleeding, failure to correct problem, and potential anesthesia issues. He stated understanding and would like to proceed. We will need to have him off his Plavix and aspirin for 3-5 days prior to the procedure. We did discuss this may increase his risk of postoperative bleeding. [email or web address] Not available 06/30/2020 14:25:12 08/28/2020 [id number] 1. Surgical pathology reviewed 2. F/u prn [email or web address] Not available 08/28/2020 13:25:09 Reason for Referral None Reported. Results Created Date Observation Date Name Description Value Unit Range Abnormal Flag Note LastModifiedBy Organization Detail LastModifiedTime 08/12/19 21 07/31/2020 elect mitchell choudharygr am No observ ation record ed. BARCODE Not Available 2020 10:13:05 Result Notes None recorded. 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 Procedures Surgical History Date Name Laterality Status Provider Name and Address Organization Details Recorded Time 06/29/19 23 transplantation of liver completed Tenisha Rodriges [facility] 07/07/2023 14:22:55 08/14/19 21 EXCISION, UVULA (SURG) completed Charleen Gonzalez [facility] 08/14/2020 12:07:31 03/20/19 12 Unlisted px femur/knee completed Cecille Bianchi [facility] 06/30/2020 13:46:51 Imaging Results Imaging Date Name Status LastModified by Organization Details LastModified Time 07/31/2020 electrocardiogram completed [facility] Informa tion not available 08/11/2020 10:13:05 Procedure Notes None recorded. Medical Equipment None Reported. Allergies No known drug allergies Medications Name Sig Start Date Stop Date Status Note LastModified by Organization Details LastModified Time Prescript ion - Change active PREOP - HOLD PLAVIX FOR 3-5 DAY PER SURGERY ON 08/11/19 21 Not Available Not Available Not Available levothyro xine 137 mcg tablet Take 1 tablet every day by oral route. active Not Available Not Available No t Available prednison e 10 mg tablet Take 1 tablet every day by oral route. 07/06 completed Not Available Not Available Not Available atorvasta tin 20 mg tablet TAKE 1 TABLET BY MOUTH ONCE DAILY AT NIGHT active Not Available Not Available No t Available tizanidin e 4 mg tablet TAKE 1 TABLET BY MOUTH THREE TIMES DAILY active Not Available Not Available No t Available hydrocodo ne 5 mg-acetam inophen 325 mg tablet TAKE 1 TABLET BY MOUTH THREE TIMES DAILY NEEDED 06/30 completed Not Available Not Available Not Available prednison e 5 mg tablet 07/06 completed Not Available Not Available Not Available torsemide 10 mg tablet TAKE 1 TABLET BY MOUTH ONCE DAILY TAKE 1 ADDITION AL TABLET NEEDED FOR MORE THAN 5 POUNDS OF WEIGHT GAIN IN 1 WEEK AND CONTACT YOUR DOCTOR active Not Available Not Available No t Available metronida zole 500 mg tablet TAKE 1 TABLET BY MOUTH THREE TIMES DAILY FOR 5 DAYS active Not Available Not Available No t Available clopidogr el 75 mg tablet TAKE 1 TABLET BY MOUTH ONCE DAILY active Not Available Not Available No t Available ciproflox acin 500 mg tablet TAKE 1 TABLET BY MOUTH TWICE DAILY FOR 7 DAYS 07/06 completed Not Available Not Available Not Available SPS (with sorbitol) 15 gram-20 gram/60 mL oral suspensio n active Not Available Not Available Not Available tramadol 50 mg tablet TAKE 1 TABLET BY MOUTH EVERY 6 HOURS NEEDED FOR PAIN (SCALE 7-10) active Not Available Not Available No t Available spironola ctone 25 mg tablet active Not Available Not Available No t Available acyclovir 800 mg tablet TAKE 1 TABLET BY MOUTH FIVE TIMES DAILY 06/30 completed Not Available Not Available Not Available carvedilo l 3.125 mg tablet TAKE 1 TABLET BY MOUTH TWICE DAILY active Not Available Not Available No t Available levothyro xine 100 mcg tablet active Not Available Not Available Not Available prednisol one acetate 1 % eye drops,kori pension INSTILL 1 DROP INTO RIGHT EYE 4 TIMES DAILY active Not Available Not Available No t Available tamsulosi n 0.4 mg capsule TAKE 1 CAPSULE BY MOUTH ONCE DAILY active Not Available Not Available No t Available pantopraz ole 40 mg tablet,de layed release TAKE 1 TABLET BY MOUTH ONCE DAILY active Not Available Not Available No t Available erythromy sid 5 mg/gram (0.5 %) eye ointment PLACE OINTMENT INTO RIGHT EYE AT BEDTIME FOR 21 DAYS active Not Available Not Available No t Available levothyro xine 125 mcg tablet active Not Available Not Available Not Available levothyro xine 150 mcg tablet TAKE 1 TABLET BY MOUTH ONCE DAILY active Not Available Not Available No t Available brimonidi ne 0.2 % eye drops INSTILL 1 DROP INTO RIGHT EYE THREE TIMES DAILY active Not Available Not Available No t Available gabapenti n 300 mg capsule TAKE 1 CAPSULE BY MOUTH EVERY 3 HOURS WHILE AWAKE 06/30 completed Not Available Not Available Not Available hydroxyzi ne HCl 25 mg tablet TAKE 1 TABLET BY MOUTH EVERY 8 HOURS NEEDED FOR ITCHING active Not Available Not Available No t Available levothyro xine 200 mcg tablet TAKE 1 TABLET BY MOUTH ONCE DAILY active Not Available Not Available No t Available aspirin 81 mg tablet Take by oral route. active Not Available Not Available No t Available hydrochlo rothiazid e 25 mg tablet Take 1 tablet every day by oral route. active Not Available Not Available No t Available furosemid e 20 mg tablet TAKE 1 TABLET BY MOUTH ONCE DAILY. PLEASE HOLD IS CREATINI NE >1.7 active Not Available Not Available No t Available ergocalci ferol (vitamin D2) 1,250 mcg (50,000 unit) capsule 06/30 completed Not Available Not Available Not Available timolol maleate 0.5 % eye drops INSTILL 1 DROP INTO RIGHT EYE TWICE DAILY active Not Available Not Available No t Available hydroxyzi ne HCl 10 mg tablet TAKE 1 TABLET BY MOUTH THREE TIMES DAILY NEEDED FOR ITCHING active Not Available Not Available No t Available atropine 1 % eye drops INSTILL 1 DROP INTO RIGHT EYE IN THE MORNING AND AT BEDTIME active Not Available Not Available No t Available ondansetr on 4 mg disintegr ating tablet DISSOLVE 1 TABLET IN MOUTH EVERY 8 HOURS NEEDED FOR NAUSEA active Not Available Not Available No t Available losartan 100 mg tablet Take 1 tablet every day by oral route. active Not Available Not Available No t Available finasteri de 5 mg tablet TAKE 1 TABLET BY MOUTH ONCE DAILY active Not Available Not Available No t Available levothyro xine 112 mcg tablet TAKE 1 TABLET BY MOUTH ONCE DAILY active Not Available Not Available No t Available enoxapari n 40 mg/0.4 mL subcutane ous syringe INJECT 0.4 ML SUBCUTAN EOUSLY ONCE DAILY active Not Available Not Available No t Available voriconaz ole 50 mg tablet TAKE 6 TABLETS BY MOUTH TWICE DAILY active Not Available Not Available No t Available rosuvasta tin 5 mg tablet TAKE 1 TABLET BY MOUTH ONCE DAILY active Not Available Not Available No t Available metoprolo l tartrate 25 mg tablet TAKE 1 TABLET BY MOUTH TWICE DAILY active Not Available Not Available No t Available hydrocodo ne 7.5 mg-acetam inophen 325 mg/15 mL oral solution TAKE 5 ML BY MOUTH EVERY 4 TO 6 HOURS NEEDED FOR PAIN 07/06 completed Not Available Not Available Not Available nitrofura ntoin monohydra te/macroc rystals 100 mg capsule TAKE 1 CAPSULE BY MOUTH TWICE DAILY FOR 7 DAYS 07/06 completed Not Available Not Available Not Available fluconazo le active Not Available Not Available Not Available mycopheno late mofetil active Not Available Not Available Not Available Cholestyr amine active Not Available Not Available Not Available cyclospor ine active Not Available Not Available Not Available prednison e active Not Available Not Available Not Available sodium chloride 1,000 mg soluble tablet TAKE 1 TABLET BY MOUTH ONCE DAILY active Not Available Not Available No t Available prasugrel HCl 10 mg tablet TAKE 1 TABLET BY MOUTH ONCE DAILY active Not Available Not Available No t Available Entresto 24 mg-26 mg tablet TAKE 1 TABLET BY MOUTH TWICE DAILY active Not Available Not Available No t Available Lokelma 5 gram oral powder packet TAKE 10 GRAMS (2 PACKETS) , MIXED DIRECTED , BY MOUTH EVERY OTHER DAY active Not Available Not Available No t Available Lokelma 10 gram oral powder packet TAKE 1 PACKET BY MOUTH ONCE DAILY active Not Available Not Available No t Available Vitals Date Recorded Body weight Body mass index (BMI) Body height Body temperature Oxygen saturation Oxygen saturation in Arterial blood by Pulse oximetry Heart rate Systolic blood pressure Diastolic blood pressure Provider Name and Address Organization Details Last Updated DateTime 1 56193.4 g 26.4 kg/m2 177.8 cm 97.3 [degF] 98 % 98 % 73 /min 145 mm[Hg] 86 mm[Hg] [facility] 13:50:13 Date Recorded Body height Body mass index (BMI) Body weight Body temperature Heart rate Oxygen saturation Oxygen saturation in Arterial blood by Pulse oximetry Systolic blood pressure Diastolic blood pressure Provider Name and Address Organization Details Last Updated DateTime 1 177.8 cm 25.9 kg/m2 60785.0 3 g 97.5 [degF] 72 /min 96 % 96 % 106 mm[Hg] 69 mm[Hg] Cristina Wagoner [facility] 13:14:44 Social History Question Answer Notes LastModified by Organizat ion Details LastModified Time Tobacco Smoking Status Former [facility] 13:42:43 How Much Tobacco Do You Smoke? 0.5 PPD Information not available 06/30/2020 Sex: Unknown Functional Status Question Answer Note LastModified by Organization D etails LastModified Time What is your level of alcohol consumption? None Information not available 06/30/2020 Mental Status None recorded. Family History Relationship Description Onset Age of this Age Resolved Age Notes LastModified by Organization Details LastModified Time Father Heart disease [email or web address] Not available 06/30 13:43:05 Father Hypertensive disorder [email or web address] Not available 06/30 13:43:10 Medical History Condition Response Kidney Stones N Hyperthyroidism N Heart Arrhythmia N Emphysema N Esophagus/swallowing troubles N Depression N Anxiety Disorder N Arthritis N Acid Reflux (GERD) Y Cancer N Stroke Y Hoarseness N Snoring problems N Headaches N Kidney Disease N Heart Problems N Mental handicap N Ear or Hearing Problems N Gallbladder Disease N Migraines N Goiter N Ulcers N Rheumatic Fever N Bleeding Disorder N Tuberculosis N AIDS/HIV N Asthma N Sleep Disorder N Hepatitis Y Hypothyroidism N Lung Disease N Glaucoma N Anesthesia Complications N Hearing Loss N Alcohol Overuse/Alcohol Abuse N High Cholesterol N Liver Disease N Allergies/Hayfever N Thyroid Problems Y Anemia N Immune System Disorder N Chest Pain N Stomach trouble N Heart Attack (SD) N Diabetes N Hyperlipidemia N Epilepsy/Seizures N Heart Disease N Hypertension Y Past Encounters Encounter ID Performer Location Encounter Start Date Encounter Closed Date Diagnosis/Indication Diagnosis SNOMED-CT Code Diagnosis ICD10 Code Diagnosis Note [id number] MD MANE DIEGO III [address] [place] [address] 06/30/2020 13:17:58 06/30/2020 14:27:01 Edema of uvula 074445959 J39.8 - Elongated Disorder o f uvula of palate 071027338 J39.9 - Elongated Snoring 84429357 R06.83 Essential hypertension 62733537 I10 Pain of ri ght shoulder joint 7440573062 3028330 M25.511 History of cerebellar stroke 1799237308 20489 Z86.73 Dysphagia 76816032 R13.1 0 - Secondary to elongated uvula. [id number] MD MANE DIEGO III RD [address] [place] [address] 08/28/2020 13:07:37 08/28/2020 14:28:34 Edema of uvula 509022771 J39.8 - S/p Partial Uvulectomy (08/13/20) Dysphagia 52917228 R13.1 0 - S/p Partial Uvulectomy (08/13/20) [id number] NICKI BAEZ MD [address] [place] [address] 07/07/2023 13:21:08 07/07/2023 15:16:16 Multiple benign melanocytic nevi 738740057 D22.5 - Benign appearing, reassuranc e- Counseled on importance of daily sun protection and self skin exams/bharat toring for ugly duckling lesions Seborrheic keratosis 394 675201 L82.1 - Benign appearing, reassuranc e Senile angioma 4562474 I 78.1 - Benign appearing, reassuranc e Solar lentigo 19751095 L 81.4 - Benign appearing, reassuranc e Health Concerns Section Related Observation LastModified by Organization Detai ls LastModified Time None Recorded Concern Status LastModified by Organization Details LastModified Time None Recorded Advance Directives Directive None Recorded Payers Insurance Date Sequence Insurance Name Policy Number Policy Nguyen Covered Member ID Nguyen Member ID Guarantor Name 07/12/2023 2 [employer] OPTIONS (MEDICARE SUPPLEMENT) PLAN G René Cornejo [id number] René Cornejo 07/07/2023 1 [place] René Cornejo [id number] René Cornejo Notes Date Note Type Note Provider Name and Address Organization Details Recorded Time 06/30/2020 text/html René comes in t [facility] for consultation at the request of Dr. Elder Estrella for an evaluation of an enlarged uvula. 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 He feels as though the edema is getting worse. He has never been able to sleep on his back. He has not been diagnosed with sleep apnea in the past. He has longstanding issues with his right shoulder which makes it difficult to sleep on his right side. He does tend to snore at night which often wakes him up throughout the night. His elongated uvula does create issues with swallowing. He does take Plavix and Asprin daily for a history of a stroke x 2 with the most recent being 5 yrs ago. He is also treated for hypertension. René is doing well otherwise. NICOLAS CANTOR III, MD [address] [place] [address], [phone], [facility] 06/30/2020 14:26:03 08/28/2020 text/html René returns to day in follow up of s/p partial uvulectomy from 08/13/20. Surgical pathology showed no abnormalities. He did experience expected postoperative throat discomfort. His pain is improving each day. He did observe standard postoperative instructions as directed. He is pleased with improvement in swallowing and breathing in general. He is doing well with no major concerns. NICOLAS CANTOR III, MD [address] [place] [address], [phone], [facility] 08/28/2020 13:29:03 07/07/2023 text/html Patient is here for a full body skin exam. - Last skin check: 01/25/2022.- No history of skin cancer.- Areas of concern: None.- Pt is currently on immunosuppressants - had a liver transplant in 06/28/2022. NICKI BAEZ MD [address] [place] [address], [phone], [facility] 07/10/2023 22:07:14
--- OUTSIDE RECORDS SUMMARY | 2024-07-29 10:48 | XMS_ITS | Continuity of Care Document ---
Author Name [facility] Organization [facility] Care Team Providers Care Sponge Maker Name Role Phone [facility] Unavailable Unavailable Problems Combined list of problems from Department of [facility] and [facility] facilities. It does not include entries that were removed or entered in error. Problem Status Onset Date Problem Type Date of Resolution Comments Source Autoimmune hepatitis Active [facility] Benign essential hypertension Active Condition [facility] Constipation Active Condition [facility] Exposure to potentially hazardous substance [facility] Gastroesophageal reflux disease without esophagitis Active Condition [facility] History of cerebrovascular accident with residual deficit Active [facility] Vitamin B12 deficiency (non anemic) Active Condition [facility] Diagnosis: ICD-10-CM Z71.89 Other specified counseling Active Diagnosis [facility] Diagnosis: ICD-10-CM N39.0 Urinary tract infection, site not specified Active Diagnosis [facility] Diagnosis: ICD-10-CM R26.2 Difficulty in walking, not elsewhere classified Active Diagnosis [facility] Diagnosis: ICD-10-CM Z46.1 Encounter for fitting and adjustment of hearing aid Active Diagnosis [facility] Diagnosis: ICD-10-CM C22.8 Malignant neoplasm of liver, primary, unspecified as to type Active Diagnosis [facility] Diagnosis: ICD-10-CM Z86.73 Prsnl hx of TIA (TIA), and cereb infrc w/o resid deficits Active Diagnosis [facility] Diagnosis: ICD-10-CM H90.5 Unspecified sensorineural hearing loss Active Diagnosis [facility] Diagnosis: ICD-10-CM C22.0 Liver cell carcinoma Active Diagnosis [facility] Medications Combined list of outpatient medications from Department of [facility] and [facility] facilities.Medications provided include 1) outpatient medications from the last 15 months, and 2) patient-reported medications. Medication Details Route Status Patient Instructions Prescription Expires Prescription Number Last Dispense Date Ordering Provider Order Date Order Qty Source ASPIRIN 81MG TAB,EC TAKE ONE TABLET BY MOUTH DAILY ORAL ACTIVE MILAD LAIRD [address] [place] [address] [facility] CALCIUM 500MG/VITAM IN D 200UNT TAB TAKE ONE TABLET BY MOUTH ORAL ACTIVE MILAD LAIRD [address] [place] [facility] CARVEDILOL 6.25MG TAB TAKE ONE-HALF TABLET BY MOUTH TWICE A DAY ORAL ACTIVE MILAD LAIRD [address] [place] [address] [facility] CYCLOSPORIN E (GENGRAF) 25MG CAP,UD TAKE 1 CAPSULE BY MOUTH ORAL ACTIVE MILAD LAIRD [address] [place] [address] [facility] LEVOTHYROXI NE NA 112MCG TAB (SYNTHROID) TAKE ONE TABLET BY MOUTH DAILY ORAL ACTIVE MILAD LAIRD [address] [place] [address] [facility] MYCOPHENOLA TE MOFETIL 250MG CAP TAKE 1 CAPSULE BY MOUTH TWICE A DAY ORAL ACTIVE MILAD LAIRD [address] [place] [address] [facility] NITROGLYCER IN 0.4MG TAB,SUBLING UAL,BTL,25 DISSOLVE ONE TABLET UNDER THE TONGUE EVERY 5 MINUTES UP TO 3 DOSES FOR CHEST PAIN -IF NO RELIEF CALL 911 SUBLIN GUAL ACTIVE 04/17/2025 [id number] MILAD LAIRD [address] [place] [address] [facility] OXYBUTYNIN CL 5MG TAB,SA TAKE ONE TABLET BY MOUTH DAILY FOR BLADDER ORAL ACTIVE 02/22/2025 [id number] MILAD LAIRD [address] [place] [address] [facility] PANTOPRAZOL E NA 40MG TAB,EC TAKE ONE TABLET BY MOUTH ONCE A DAY 30 MINUTES BEFORE A MEAL ORAL ACTIVE MILAD LAIRD [address] [place] [address] [facility] POSACONAZOL E 100MG TAB,EC TAKE THREE TABLETS BY MOUTH DAILY ORAL ACTIVE MILAD LAIRD L [address] [place] [address] [facility] PRASUGREL HCL 10MG TAB TAKE ONE TABLET BY MOUTH DAILY ORAL ACTIVE SSII,MILAD VANDANA L [address] [place] [address] [facility] PRASUGREL HCL 10MG TAB TAKE ONE TABLET BY MOUTH DAILY ORAL ACTIVE SISI,MILAD VANDANA L [address] [place] [address] [facility] PREDNISONE 5MG TAB TAKE ONE TABLET BY MOUTH ORAL ACTIVE SISI,MILAD VANDANA L [address] [place] [address] [facility] ROSUVASTATI N CA 5MG TAB TAKE ONE TABLET BY MOUTH AT BEDTIME ORAL ACTIVE SISI,MILAD VANDANA L [address] [place] [address] [facility] SODIUM ZIRCONIUM CYCLOSILICA TE 5GM/PKT PWDR,RENST- ORAL TAKE 1 PACKET BY MOUTH DAILY ORAL ACTIVE SISI,MILAD VANDANA L [address] [place] [address] [facility] VALSARTAN 40MG TAB TAKE ONE TABLET BY MOUTH TWICE A DAY ORAL ACTIVE SISI,MILAD VANDANA L [address] [place] [address] [facility] Immunizations Combined list of available immunizations from the Department of Defense and Veterans Affairs facilities. Immunization Series Date Given Administered By Site Reaction Lot Number CVX Code Drug Press Clipper Status Comments Source INFLUENZA, HIGH-DOSE, TRIVALENT, PF 2023 LOKESH BORDEN LEFT DELTO ID [id number] 135 complet ed Completed Series, ADMINISTE RED AT [place], [place] [facility] INFLUENZA, HIGH-DOSE, QUADRIVALENT 2 2022 197 complet ed HISTORICA L INFORMATI ON - FROM OTHER REGISTRY, [place] [facility] INFLUENZA, HIGH-DOSE, QUADRIVALENT 1 2021 197 complet ed HISTORICA L INFORMATI ON - FROM OTHER REGISTRY, [place] [facility] PNEUMOCOCCAL CONJUGATE PCV20, POLYSACCHARID E SIN422 CONJUGATE, ADJUVANT, PF 2021 216 complet ed [place] [facility] ZOSTER RECOMBINANT 2 2020 NONE 187 complet ed [place] [facility] COVID-19 (MODERNA), MRNA, LNP-S, PF, 100 MCG/0.5ML DOSE OR 50 MCG/0.25ML DOSE 3 2020 207 complet ed HISTORICA L INFORMATI ON - FROM OTHER REGISTRY, [place] [facility] ZOSTER RECOMBINANT 1 2020 187 complet ed [place] [facility] COVID-19 (MODERNA), MRNA, LNP-S, PF, 100 MCG/0.5 ML DOSE 2 2020 207 complet ed [place] [facility] COVID-19 (MODERNA), MRNA, LNP-S, PF, 100 MCG/0.5 ML DOSE 1 2020 207 complet ed [place] [facility] INFLUENZA, UNSPECIFIED FORMULATION 2019 88 complet ed [place] [facility] INFLUENZA, SEASONAL, INJECTABLE 2018 141 complet ed Employer [place] [facility] PNEUMOCOCCAL POLYSACCHARID E PPV23 2017 33 complet ed [place] [facility] TDAP 2016 115 complet ed Employer [place] [facility] Vital Signs Combined list of inpatient and outpatient Vital Signs from Department of Defense and Veterans Affairs, ranging from 12 months to all on record, depending upon the facility. Vital Sign Value Date Comments Source SYSTOLIC BLOOD PRESSURE 156 02/02/2024 10:25:01 [facility] DIASTOLIC BLOOD PRESSURE 85 02/02/2024 10:25:01 [facility] PULSE OXIMETRY 97 02/02/2024 10:25:01 [facility] WEIGHT 124 02/02/2024 10:25:01 [place] [facility] BMI 18 kg/m2 02/02/2024 10:25:01 [place] [facility] PAIN 0 02/02/2024 10:25:01 [place] [facility] HEIGHT 69 02/02/2024 10:25:01 [place] [facility] TEMPERATURE 98.6 02/02/2024 10:25:01 [facility] PULSE 62 02/02/2024 10:25:01 [place] RESPIRATION 12 02/02/2024 10:25:01 [facility] Encounters Combined list of: 1) Encounters from Department of Veterans Affairs facilities going backup to the last 18 months, not all [place] inpatient encounters are included; 2) Encounters from the Department of Defense facilities going backup to 280 months. Location Location Details Encounter Type Encounter Number Reason For Visit Attending Provider ADM Date DC Date Status Disposition Source [facility] Outpatient Encounter [id number] 06/02 [place] OFFICE O/P EST MOD 30 MIN [id number] Diagnos is: ICD-10- CM C22.0 Liver cell carcino YISEL Russell TTANY L 06/02 [place] [facility] HEARING AID EXAM BOTH EARS [id number] Diagnos is: ICD-10- CM H90.5 Unspeci fied sensori neural hearing loss ISA BLANCO 06/08 [place] [facility] Outpatient Encounter [id number] 06/29 [place] PRO PHONE CALL 5-10 MIN [id number] Diagnos is: ICD-10- CM Z71.89 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 ZAY Bermeo 07/02 [place] [facility] HEARING AID FITTING/CH ECKING [id number] Diagnos is: ICD-10- CM Z46.1 Encount er for fitting and adjustm ent of hearing aid ISA BLANCO 07/06 [place] [facility] WHEELCHAIR MNGMENT TRAINING [id number] Diagnos is: ICD-10- CM Z86.73 Prsnl hx of TIA (TIA), and cereb infrc w/o resid deficit s HUSSAIN MINOR W 07/10 [place] [facility] Outpatient Encounter [id number] YISEL LAIRD L 07/20 [place] [facility] Outpatient Encounter [id number] Diagnos is: ICD-10- CM C22.8 Maligna nt neoplas m of liver, primary , unspeci fied as to type HUSSAIN MINOR W 08/02 [place] [facility] HEARING SERVICE [id number] Diagnos is: ICD-10- CM Z46.1 Encount er for fitting and adjustm ent of hearing aid ISA BLANCO 08/30 [place] [facility] Outpatient Encounter [id number] 09/12 [place] PRO PHONE CALL 5-10 MIN [id number] Diagnos is: ICD-10- CM R26.2 Difficu lty in walking , not elsewhe re classif ied LESLIE ESPARZA S 10/09 [place] [facility] OFFICE O/P EST LOW 20 MIN [id number] Diagnos is: ICD-10- CM N39.0 Urinary tract infecti on, site not specifi ed YISEL LAIRD L 02/01 [place] [facility] Outpatient Encounter [id number] 02/18 [place] PRO PHONE CALL 5-10 MIN [id number] Diagnos is: ICD-10- CM Z71.89 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 Social History Type Response Date Comment [facility] e Tobacco smoking status NHIS [place]-TOBACCO NEVER USED 06/03/2023 [facility] History of tobacco use [place]-TOBACCO NEVER USED 11/15/2021 [facility] History of tobacco use [place]-TOBACCO FORMER USER 05/26/2020 [facility] History of tobacco use [place]-TOBACCO NEVER USED 04/02/2019 [facility]
--- OUTSIDE RECORDS SUMMARY | 2024-07-29 10:48 | XMS_ITS | Data Portability ---
Author Organization [facility] [place] [facility] Address [address] [place] [address] Care Team Providers Care Air Sealing Technician Name Role Phone BRIANVERONICA Primary Care Provider Assessment Encounter Date Assessment Date Assessment LastModified by Organization Details LastModified Time 02/25/2022 02/25/2022 overall doing well. prior CVA but no issues with the heart other than this. He has opwx-co-cgudalkm carotid artery stenosis with mild coronary disease. No chest pain pressure or tightness. No shortness of breath. EKG shows normal sinus rhythm with inferior lateral Q-waves which are nonspecific. No ST or T-wave abnormalities. His last echocardiogram had normal function of the heart. He is in the process of being evaluated for a potential liver transplant. At this time, he does take Plavix but I do not see the need for it. If he needs to come off of this to get on the list certainly that is fine as he has not had any stents in the past and has no cardiac complaints. He does have some mild edema in the left leg. This is secondary to his prior stroke. Overall he feels well. No chest pain pressure or tightness. No shortness of breath. Follow up in Cardiology Clinic in 6 months. Meds and heart reviewed in full today Continue current medications Risk factor modification Recommend LDL cholesterol of less than 100 Blood work as per primary care Follow-up in Cardiology Clinic in 6 months Okay to stop Plavix Last echocardiogram was done in 2013 with normal function of the heart 55-60% Last cardiac catheterization also June 2013 with mild coronary disease anali Not available 02/25/2022 10:03:28 Plan of Treatment Reminders Order Date Submit Date Provider Last Modified By Organization Details Last Modified Time Details Appointments None recorded. Lab None recorded. Referral None recorded. Procedures None recorded. Surgeries None recorded. Imaging electrocard iogram 2021 022 anali [facility], [address] [place] [address] [address], [place], [address], 10:03:29 Medication Orders None recorded. Patient TargetsNo targets recorded. Patient InstructionsNo instructions recorded. Reason for Referral None Reported. Results Created Date Observation Date Name Description Value Unit Range Abnormal Flag Note LastModifiedBy Organization Detail LastModifiedTime 02/26/20 elect rocar diogr am No observ ation record ed. [email or web address] [address], [place], [address], 02/25/2022 09:44:56 02/26/2002/25/2022 elect rocar diogr am No observ ation record ed. [email or web address] Not Available 2021 09:46:02 Result Notes None recorded. Problems Name Problem SNOMED Code Status Onset Date Resolution Date Notes Provider Name and Address Organization Details Recorded Time Coronary atheroscl erosis 011585083 Active 2013 Not Available [facility] 2 23:33:03 Pain of shoulder region 41194506 Active 2013 Shoulder pain Not Available [facility] 2 23:33:03 Disorder of carotid artery 634724091 Active 2021 Carotid artery disease Not Available [facility] 2 23:33:03 Closed fracture of shaft of clavicle 74429604 Active 2018 Not Available [facility] 2 23:33:03 Electroca rdiogram abnormal 133045584 Active 2013 Not Available [facility] 2 23:33:03 Autoimmun e hepatitis 312525291 Active 2013 Not Available [facility] 2 23:33:03 Angina pectoris 850708170 Active 2013 Not Available [facility] 2 23:33:03 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 39158650979 9100 Active 2019 Not Available [facility] 2 23:33:03 Carotid artery stenosis 97783965 Active 2013 Not Available [facility] 2 23:33:03 Hypertens wiley disorder 53172939 Active 2013 Hyperten grace Not Available [facility] 2 23:33:03 Abnormal results of cardiovas cular function studies 710018856 Active 2013 Not Available [facility] 2 23:33:03 Hypothyro idism 70051193 Active 2013 Not Available [facility] 2 23:33:03 Coronary arteriosc lerosis 29909786 Active 2021 Coronary artery disease Not Available [facility] 2 23:33:03 Ischemic heart disease 166400308 Active 2021 Ischemic heart disease Not Available [facility] 2 23:33:03 Essential hypertens ion 50972195 Active 2021 Essential hypertens ion Not Available [facility] 2 23:33:04 Cerebral infarctio n 542669570 Active 2013 Not Available [facility] 2 23:33:04 Chest pain 37672992 Active 2013 Not Available [facility] 2 23:33:04 Adhesive capsuliti s of shoulder 136315487 Active 2013 Not Available [facility] 2 23:33:04 Cirrhosis of liver 71135739 Active 2021 Nile Cardona MD [facility] e [address] [place] [address], [address] , [facility] & [place] 2 10:01:30 Cerebrova scular accident 293613981 Active 2021 Nile Cardona MD [facility] e [address] [place] [address], [phone] , [facility] & [place] 2 10:01:49 Problem Notes None recorded. Procedures Surgical History Date Name Laterality Status Provider Name and Address Organization Details Recorded Time Cardiac Catheterization completed Alicia GILLIAM - [facility] - [place] [facility] [place] 02/25/2022 09:43:19 leg repair completed Alicia GILLIAM - LP NT [facility] & [place] 02/25/2022 09:43:33 biopsy of liver completed Alicia GILLIAM - [facility]NT [facility] & [place] 02/25/2022 09:43:44 Imaging Results Imaging Date Name Status LastModified by Organization Details LastModified Time 02/25/2022 electrocardiogram completed [email or web address] Mv [address], [place], [address], 02/25/2022 09:44:56 02/25/2022 electrocardiogram completed [email or web address] Informa tion not available 02/25/2022 09:46:02 Procedure Notes None recorded. Medical Equipment None Reported. Medications Name Sig Start Date Stop Date Status Note LastModified by Organization Details LastModified Time Flomax 0.4 mg capsule Take 1 capsule every day by oral route as directed. active Not Available Not Available No t Available levothyroxi ne 137 mcg tablet 1 tablet on an empty stomach in the morning Orally Once a day active Not Available Not Available No t Available prednisone 10 mg tablet 4 tablets Orally weekly 02/25 completed Not Available Not Available Not Available Protonix 40 mg tablet,colton yed release 1 tablet Orally Once a day 2013 active Not Available Not Available Not Avai lable Plavix 75 mg tablet 1 tablet Orally Once a day active Not Available Not Available No t Available Nitrostat 0.4 mg sublingual tablet 1 tablet under the tongue and allow to dissolve as needed and as directed Sublingua l every 0 hrs 2013 active Not Available Not Available Not Avai lable baclofen 10 mg tablet 1 tablet as needed Orally three times daily 02/25 completed Not Available Not Available Not Available nadolol 40 mg tablet 1 tablet Orally Once a day for 30 day(s) 2021 active Not Available Not Available Not Avai lable hydrochloro thiazide 25 mg tablet 1 tablet in the morning Orally Once a day 02/25 completed Not Available Not Available Not Available colestipol 1 gram tablet 2 tablets Orally Once a day active Not Available Not Available No t Available vitamin V92-xmzol acid injection solution 1 injection monthly active Not Available Not Available No t Available calcium active Not Available Not Avail able Not Available Vitamin D3 active Not Available Not Av ailable Not Available Vitals Date Recorded Body height Body mass index (BMI) Body weight Oxygen saturation Oxygen saturation in Arterial blood by Pulse oximetry Heart rate Systolic blood pressure Diastolic blood pressure Provider Name and Address Organization Details Last Updated DateTime 2 175.26 cm 25 kg/m2 26098.2 7 g 100 % 100 % 55 /min 130 mm[Hg] 90 mm[Hg] Alicia Hatch [facility] & [place] 2 09:41:18 Social History None recorded. Functional Status None recorded. Mental Status None recorded. Family History Nothing Reported. Medical History Condition Response Thyroid Disease Y Stroke Y Hypertension Y Past Encounters Encounter ID Performer Location Encounter Start Date Encounter Closed Date Diagnosis/Indication Diagnosis SNOMED-CT Code Diagnosis ICD10 Code Diagnosis Note [id number] Nile Cardona MD [address] [place] [address] 02/25/2022 09:03:51 02/25/2022 09:43:42 Essential hypertension 21388605 I10 Coronary arteriosclerosis 44299084 I25.10 Carotid ar inessa stenosis 63528622 I65.29 Cirrhosis of liver 007 K74.60 Cerebrovas cular accident 673945730 I63.9 Health Concerns Section Related Observation LastModified by Organization Detai ls LastModified Time None Recorded Concern Status LastModified by Organization Details LastModified Time None Recorded Advance Directives Directive None Recorded Payers Insurance Date Sequence Insurance Name Policy Number Policy Nguyen Covered Member ID Nguyen Member ID Guarantor Name 08/27/2022 2 [employer] (MEDICARE SUPPLEMENT) Renéalejo Cornejo [id number] Renéalejo Cornejo 08/27/2022 1 [place] René Cornejo [id number] René Conleyks 08/15/2019 2 [employer] - OPTIONS Renéalejo Cornejo [id number] Renéalejo Cornejo 08/29/2019 3 [place] Renéalejo Cornejo [id number] René Cornejo Notes Date Note Type Note Provider Name and Address Organization Details Recorded Time 02/25/2022 text/html from a cardiac standpoint, ankush is doing well. He still having some issues with his liver. He is on a new treatment at present time. The liver function is actually improved. He has some swelling of the left leg but that happens when he is more inactive which she has been. No chest pain pressure or tightness. No shortness of breath orthopnea or PND Nile Cardona MD [address] [place] [address],[address], [place], [address], [facility] & [place] 02/25/2022 10:32:16
== END 2024-07-26 23:59 | disposition home or self-care (01) ==
LOC: LAB.DROPOF 07-29 10:46
PROVIDERS: PCP Internal Medicine; Visit Provider Internal Medicine
DX: R82.90 Unspecified abnormal findings in urine (principal); N39.0 Urinary tract infection, site not specified
CPT/HCPCS: 81001; 87086; 87088; 87186

== ENCOUNTER 2024-08-13 09:52 | Outpatient (CLI) | payer MEDICARE, SELFPAY ==
--- OUTSIDE RECORDS SUMMARY | 2024-04-16 08:12 | XMS_ITS | Continuity of Care Document ---
Author Name [facility] Organization [facility] Care Team Providers Care Qualification Engineer Name Role Phone [facility] Unavailable Unavailable Problems Combined list of problems from Department of [facility] and [facility] facilities. It does not include entries that were removed or entered in error. Problem Status Onset Date Problem Type Date of Resolution Comments Source Autoimmune hepatitis [facility] Benign essential hypertension Active Condition [facility] Constipation Active Condition [facility] Exposure to potentially hazardous substance Active [facility] Gastroesophageal reflux disease without esophagitis Active Condition [facility] History of cerebrovascular accident with residual deficit [facility] Vitamin B12 deficiency (non anemic) Active Condition [facility] Diagnosis: ICD-10-CM Z71.89 Other specified counseling Active Diagnosis [facility] Diagnosis: ICD-10-CM N39.0 Urinary tract infection, site not specified Active Diagnosis [facility] Diagnosis: ICD-10-CM R26.2 Difficulty in walking, not elsewhere classified Active Diagnosis [facility] Diagnosis: ICD-10-CM Z46.1 Encounter for fitting and adjustment of hearing aid Active Diagnosis [facility] Diagnosis: ICD-10-CM C22.8 Malignant neoplasm of liver, primary, unspecified as to type Active Diagnosis [facility] Diagnosis: ICD-10-CM Z86.73 Prsnl hx of TIA (TIA), and cereb infrc w/o resid deficits Active Diagnosis [facility] Diagnosis: ICD-10-CM H90.5 Unspecified sensorineural hearing loss Active Diagnosis [facility] Diagnosis: ICD-10-CM C22.0 Liver cell carcinoma Active Diagnosis [facility] Medications Combined list of outpatient medications from Department of [facility] and [facility] facilities.Medications provided include 1) outpatient medications from the last 15 months, and 2) patient-reported medications. Medication Details Route Status Patient Instructions Prescription Expires Prescription Number Last Dispense Date Ordering Provider Order Date Order Qty Source ASPIRIN 81MG TAB,EC TAKE ONE TABLET BY MOUTH DAILY ORAL ACTIVE MILAD LAIRD 2023 [place] [facility] CALCIUM 500MG/VITAM IN D 200UNT TAB TAKE ONE TABLET BY MOUTH ORAL ACTIVE MILAD LAIRD 2023 [place] [facility] CARVEDILOL 6.25MG TAB TAKE ONE-HALF TABLET BY MOUTH TWICE A DAY ORAL ACTIVE MILAD LAIRD 2023 [place] [facility] CYCLOSPORIN E (GENGRAF) 25MG CAP,UD TAKE 1 CAPSULE BY MOUTH ORAL ACTIVE MILAD LAIRD 2023 [place] [facility] LEVOTHYROXI NE NA 112MCG TAB (SYNTHROID) TAKE ONE TABLET BY MOUTH DAILY ORAL ACTIVE MILAD LAIRD 2023 [place] [facility] MYCOPHENOLA TE MOFETIL 250MG CAP TAKE 1 CAPSULE BY MOUTH TWICE A DAY ORAL ACTIVE MILAD LAIRD 2023 [place] [facility] NITROGLYCER IN 0.4MG TAB,SUBLING UAL,BTL,25 DISSOLVE ONE TABLET UNDER THE TONGUE EVERY 5 MINUTES UP TO 3 DOSES FOR CHEST PAIN -IF NO RELIEF CALL 911 SUBLIN GUAL ACTIVE 04/17/2025 [id number] MILAD LAIRD 2024 1 [place] [facility] OXYBUTYNIN CL 5MG TAB,SA TAKE ONE TABLET BY MOUTH DAILY FOR BLADDER ORAL ACTIVE 02/22/2025 [id number] MILAD LAIRD 2023 90 [place] [facility] PANTOPRAZOL E NA 40MG TAB,EC TAKE ONE TABLET BY MOUTH ONCE A DAY 30 MINUTES BEFORE A MEAL ORAL ACTIVE MILAD LAIRD 2023 [place] [facility] POSACONAZOL E 100MG TAB,EC TAKE THREE TABLETS BY MOUTH DAILY ORAL ACTIVE MILAD LAIRD L 2023 [place] [facility] PRASUGREL HCL 10MG TAB TAKE ONE TABLET BY MOUTH DAILY ORAL ACTIVE SISI,MILAD VANDANA L 2023 [place] [facility] PRASUGREL HCL 10MG TAB TAKE ONE TABLET BY MOUTH DAILY ORAL ACTIVE SISI,MILAD VANDANA L 2023 [place] [facility] PREDNISONE 5MG TAB TAKE ONE TABLET BY MOUTH ORAL ACTIVE SISI,MILAD VANDANA L 2023 [place] [facility] ROSUVASTATI N CA 5MG TAB TAKE ONE TABLET BY MOUTH AT BEDTIME ORAL ACTIVE SISI,MILAD VANDANA L 2023 [place] [facility] SODIUM ZIRCONIUM CYCLOSILICA TE 5GM/PKT PWDR,RENST- ORAL TAKE 1 PACKET BY MOUTH DAILY ORAL ACTIVE SISI,MILAD VANDANA L 2023 [place] [facility] VALSARTAN 40MG TAB TAKE ONE TABLET BY MOUTH TWICE A DAY ORAL ACTIVE SISI,MILAD VANDANA L 2023 [place] [facility] Immunizations Combined list of available immunizations from the Department of Defense and Veterans Affairs facilities. Immunization Series Date Given Administered By Site Reaction Lot Number CVX Code Drug Transport Conductor Status Comments Source INFLUENZA, HIGH-DOSE, TRIVALENT, PF 2023 LOKESH BORDEN LEFT DELTO ID [id number] 135 complet ed Completed Series, ADMINISTE RED AT DE, [place] [facility] INFLUENZA, HIGH-DOSE, QUADRIVALENT 2 2022 197 complet ed HISTORICA L INFORMATI ON - FROM OTHER REGISTRY, [place] [facility] INFLUENZA, HIGH-DOSE, QUADRIVALENT 1 2021 197 complet ed HISTORICA L INFORMATI ON - FROM OTHER REGISTRY, [place] [facility] PNEUMOCOCCAL CONJUGATE PCV20, POLYSACCHARID E [id number] CONJUGATE, ADJUVANT, PF 2021 216 complet ed [place] [facility] ZOSTER RECOMBINANT 2 2020 NONE 187 complet ed [place] [facility] COVID-19 (MODERNA), MRNA, LNP-S, PF, 100 MCG/0.5ML DOSE OR 50 MCG/0.25ML DOSE 3 2020 207 complet ed HISTORICA L INFORMATI ON - FROM OTHER REGISTRY, [place] [facility] ZOSTER RECOMBINANT 1 2020 187 complet ed [place] [facility] COVID-19 (MODERNA), MRNA, LNP-S, PF, 100 MCG/0.5 ML DOSE 2 2020 207 complet ed [place] [facility] COVID-19 (MODERNA), MRNA, LNP-S, PF, 100 MCG/0.5 ML DOSE 1 2020 207 complet ed [place] [facility] INFLUENZA, UNSPECIFIED FORMULATION 2019 88 complet ed [place] [facility] INFLUENZA, SEASONAL, INJECTABLE 2018 141 complet ed Employer [place] [facility] PNEUMOCOCCAL POLYSACCHARID E PPV23 2017 33 complet ed [place] [facility] TDAP 2016 115 complet ed Employer [place] [facility] Vital Signs Combined list of inpatient and outpatient Vital Signs from Department of Defense and Veterans Affairs, ranging from 12 months to all on record, depending upon the facility. Vital Sign Value Date Comments Source SYSTOLIC BLOOD PRESSURE 156 02/02/2024 10:25:01 [facility] DIASTOLIC BLOOD PRESSURE 85 02/02/2024 10:25:01 [facility] PULSE OXIMETRY 97 02/02/2024 10:25:01 [facility] WEIGHT 124 02/02/2024 10:25:01 [place] [facility] BMI 18 kg/m2 02/02/2024 10:25:01 [place] [facility] PAIN 0 02/02/2024 10:25:01 [place] [facility] HEIGHT 69 02/02/2024 10:25:01 [place] [facility] TEMPERATURE 98.6 02/02/2024 10:25:01 [facility] PULSE 62 02/02/2024 10:25:01 [place] [facility] RESPIRATION 12 02/02/2024 10:25:01 [facility] Encounters Combined list of: 1) Encounters from Department of Veterans Affairs facilities going backup to the last 18 months, not all [place] inpatient encounters are included; 2) Encounters from the Department of Defense facilities going backup to 280 months. Location Location Details Encounter Type Encounter Number Reason For Visit Attending Provider ADM Date DC Date Status Disposition Source [facility] Outpatient Encounter [id number] 06/02 [place] OFFICE O/P EST MOD 30 MIN [id number] Diagnos is: ICD-10- CM C22.0 Liver cell carcino YISEL Russell TTANY L 06/02 [place] [facility] HEARING AID EXAM BOTH EARS [id number] Diagnos is: ICD-10- CM H90.5 Unspeci fied sensori neural hearing loss ISA BLANCO 06/08 [place] [facility] Outpatient Encounter [id number] 06/29 [place] [facility] HC PRO PHONE CALL 5-10 MIN [id number] Diagnos is: ICD-10- CM Z71.89 Other specifi ed funeral prearrangement counselor ZAY Bermeo 07/02 [place] [facility] HEARING AID FITTING/CH ECKING [id number] Diagnos is: ICD-10- CM Z46.1 Encount er for fitting and adjustm ent of hearing aid ISA BLANCO 07/06 [place] [facility] WHEELCHAIR MNGMENT TRAINING [id number] Diagnos is: ICD-10- CM Z86.73 Prsnl hx of TIA (TIA), and cereb infrc w/o resid deficit s HUSSAIN MINOR W 07/10 [place] [facility] Outpatient Encounter [id number] YISEL LAIRD L 07/20 [place] [facility] Outpatient Encounter [id number] Diagnos is: ICD-10- CM C22.8 Maligna nt neoplas m of liver, primary , unspeci fied as to type HUSSAIN MINOR W 08/02 [place] [facility] HEARING SERVICE [id number] Diagnos is: ICD-10- CM Z46.1 Encount er for fitting and adjustm ent of hearing aid ISA BLANCO 08/30 [place] [facility] Outpatient Encounter [id number] 09/12 [place] HC PRO PHONE CALL 5-10 MIN [id number] Diagnos is: ICD-10- CM R26.2 Difficu lty in walking , not elsewhe re classif ied LESLIE ESPARZA S 10/09 [place] [facility] OFFICE O/P EST LOW 20 MIN [id number] Diagnos is: ICD-10- CM N39.0 Urinary tract infecti on, site not specifi ed YISEL LAIRD L 02/01 [place] [facility] Outpatient Encounter [id number] 02/18 [place] HC PRO PHONE CALL 5-10 MIN [id number] Diagnos is: ICD-10- CM Z71.89 Other specifi ed funeral prearrangement counselor ZAY Bermeo 02/18 [place] [facility] Outpatient Encounter [id number] 02/28 [place] [facility] Outpatient Encounter [id number] 04/16 [place] [facility] Social History Combined list of available smoking, tobacco, and other social history from Department of Defense and Veterans Affairs facilities. Social History Type Response Date Comment [facility] Tobacco smoking status NHIS DE-TOBACCO NEVER USED 06/03/2023 [facility] History of tobacco use DE-TOBACCO NEVER USED 11/15/2021 [facility] History of tobacco use DE-TOBACCO FORMER USER 05/26/2020 [facility] History of tobacco use DE-TOBACCO NEVER USED 04/02/2019 [facility]
--- OUTSIDE RECORDS SUMMARY | 2024-08-15 09:54 | XMS_ITS | Data Portability ---
Author Organization [facility] Address [address] [facility] [address] [place] [address] Care Team Providers Care Bail Agent Name Role Phone ELDER ESTRELLA Primary Care Provider NICKI ISRAEL Flaking Roll Operator Assessment No assessment recorded. Plan of Treatment Reminders Order Date Submit Date Provider Last Modified By Organization Details Last Modified Time Details Appointments [facility] 2024 11:00A M CARLOS VIEIRA MD Not available Not available Not available Lab None recorded . Referral None recorded . Procedures None recorded . Surgeries None recorded . Imaging None recorded . Medication Orders None recorded . Patient TargetsNo targets recorded. Patient Instructions Encounter Date Encounter Id Patient Instructions Last Modified By Organization Details Last Modified Time 06/30/2020 [id number] 1. Recommend partial uvulectomy. Full risks, complications, [...] may increase his risk of postoperative bleeding. [email or web address] Not available 06/30/2020 14:25:12 08/28/2020 [id number] 1. Surgical pathology reviewed 2. F/u prn [...] Details Recorded Time Multiple benign melanocytic nevi 089064005 Active 2023 Merle Crenshaw [facility] 4 14:48:06 Seborrheic keratosis 928690652 Active 2023 Merle Crenshaw [facility] 4 14:48:08 Senile angioma 8291141 Active 2023 Merle Crenshaw [facility] 4 14:48:09 Solar lentigo 78857004 Active 2023 Merle Crenshaw [facility] 4 14:48:13 Problem Notes None recorded. Procedures Surgical History Date Name Laterality Status Provider Name and Address Organization Details Recorded Time 06/29/19 23 transplantation of liver completed Tenisha Rodriges [facility] 07/07/2023 14:22:55 08/14/19 21 EXCISION, UVULA (SURG) completed Charleen Gonzalez [facility] 08/14/2020 12:07:31 03/20/19 12 Unlisted px femur/knee completed Cecille Bianchi [facility] 06/30/2020 13:46:51 Imaging Results None recorded. Procedure Notes None recorded. Medical Equipment None [...] Address Organization Details Last Updated DateTime 1 45028.4 g 26.4 kg/m2 177.8 cm 97.3 [degF] 98 % 98 % 73 /min 145 mm[Hg] 86 mm[Hg] [facility] 1 13:50:13 Date Recorded Body height Body mass index (BMI) Body weight Body temperature Heart rate Oxygen saturation Oxygen saturation in Arterial blood by Pulse oximetry Systolic blood pressure Diastolic blood pressure Provider Name and Address Organization Details Last Updated DateTime 1 177.8 cm 25.9 kg/m2 78800.0 3 g 97.5 [degF] 72 /min 96 % 96 % 106 mm[Hg] 69 mm[Hg] Cristina Wagoner [facility] 13:14:44 Social History Question Answer Notes LastModified by Organizat ion Details LastModified Time Tobacco Smoking Status Former Smoker Cecille Bainchi [facility] 06/30/2020 13:42:43 How Much Tobacco Do You [...] Emphysema N Esophagus/swallowing troubles N Depression N Lung Disease N Hypothyroidism N Glaucoma N Anesthesia Complications N Anxiety Disorder N Hearing Loss N Arthritis N Acid Reflux (GERD) Y Cancer N Stroke Y Hoarseness N Alcohol Overuse/Alcohol Abuse N High Cholesterol N Snoring problems N Liver Disease N Headaches N Kidney Disease N Allergies/Hayfever N Heart Problems N Mental handicap N Ear or Hearing Problems N Gallbladder Disease N Migraines N Thyroid Problems Y Goiter N Anemia N Immune System Disorder N Chest Pain N Stomach trouble N Ulcers N Heart Attack (ME) N Diabetes N Rheumatic Fever N Bleeding Disorder N Tuberculosis N AIDS/HIV N Hyperlipidemia N Asthma N Epilepsy/Seizures N Sleep Disorder N Hepatitis Y Heart Disease N Hypertension Y Past Encounters Encounter ID Performer Location Encounter Start Date Encounter Closed Date Diagnosis/Indication Diagnosis SNOMED-CT Code Diagnosis ICD10 Code Diagnosis Note [id number] MD MANE DIEGO III [facility] [address] [place] [address] 06/30/2020 13:17:58 06/30/2020 14:27:01 Edema of uvula 893526908 J39.8 - Elongated Disorder o f uvula of palate 113235251 J39.9 - Elongated Snoring 33801133 R06.83 Essential hypertension 08533507 I10 Pain of ri ght shoulder joint 8428273146 4774449 M25.511 History of cerebellar stroke 8252684592 28643 Z86.73 Dysphagia 93217792 R13.1 0 - Secondary to elongated uvula. [id number] NICOLAS CANTOR III, MD [place] [facility] [address] [place] [address] 08/28/2020 13:07:37 08/28/2020 14:28:34 Edema of uvula 185399120 J39.8 - S/p Partial Uvulectomy (08/13/20) Dysphagia 41393194 R13.1 0 - S/p Partial Uvulectomy (08/13/20) [id number] NICKI BAEZ MD [place] [address] [place] [address] 07/07/2023 13:21:08 07/07/2023 15:16:16 Multiple benign melanocytic nevi 684439501 D22.5 - Benign appearing, reassuranc e- Counseled on importance of daily sun protection and self skin exams/bharat toring for ugly duckling lesions Seborrheic keratosis 394 328066 L82.1 - Benign appearing, reassuranc e Senile angioma 5560123 I 78.1 - Benign appearing, reassuranc e Solar lentigo 25416079 L 81.4 - Benign appearing, reassuranc e Health Concerns Section Related Observation LastModified by Organization Detai ls LastModified Time None Recorded Concern Status LastModified by Organization Details LastModified Time None Recorded Advance Directives Directive None Recorded Payers Insurance Date Sequence Insurance Name Policy Number Policy Nguyen Covered Member ID Nguyen Member ID Guarantor Name 07/12/2023 2 AARP (MEDICARE SUPPLEMENT) PLAN G René Cornejo [id number] René Cornejo 07/07/2023 1 [place] René Cornejo [id number] René Cornejo Notes Date Note Type Note [...] doing well otherwise. NICOLAS CANTOR III, MD [address] [place] [address], [phone], [facility] 06/30/2020 14:26:03 08/28/2020 text/html René returns [...] no major concerns. NICOLAS CANTOR III, MD [address] [place] [address], [phone], [facility] 08/28/2020 13:29:03 07/07/2023 text/html Patient is here for a full body skin exam. - Last skin check: 01/25/2022.- No history of skin cancer.- Areas of concern: None.- Pt is currently on immunosuppressants - had a liver transplant in 06/28/2022. NICKI BAEZ MD [address] [place] [address], [phone], [facility] 07/10/2023 22:07:14
--- OUTSIDE RECORDS SUMMARY | 2024-08-15 09:55 | XMS_ITS | Data Portability ---
Author Organization [facility] [place] [facility] Address [address] [place] [address] Care Team Providers Care Air Valve Mechanic Name Role Phone BRIANVERONICA Primary Care Provider Assessment Encounter Date Assessment Date Assessment LastModified by Organization Details LastModified Time 02/25/2022 02/25/2022 overall doing well. prior CVA but no issues with the heart other than this. He has jrjs-jq-yfexhumh carotid artery stenosis with mild coronary disease. [...] recorded. Imaging electrocard iogram 2021 022 [facility], [address] [place] [address] [address], [place], [address], 10:03:29 Medication Orders None recorded. Patient TargetsNo targets recorded. Patient InstructionsNo instructions recorded. Reason for Referral None Reported. Results Created Date Observation Date Name Description Value Unit Range Abnormal Flag Note LastModifiedBy Organization Detail LastModifiedTime 02/26/20 elect rocar diogr am No observ ation record ed. [email or web address] [address], [place], [address], 02/25/2022 09:44:56 02/26/2002/25/2022 elect rocar diogr am No observ ation record ed. [email or web address] Not Available 2021 09:46:02 Result Notes None recorded. Problems Name Problem SNOMED Code Status Onset Date Resolution Date Notes Provider Name and Address Organization Details Recorded Time Coronary atheroscl erosis 719300445 Active 2013 Not Available [facility] 2 23:33:03 Pain of shoulder region 68694973 Active 2013 Shoulder pain Not Available [facility] 2 23:33:03 Disorder of carotid artery 059241311 Active 2021 Carotid artery disease Not Available [facility] 2 23:33:03 Closed fracture of shaft of clavicle 36504866 Active 2018 Not Available [facility] 2 23:33:03 Electroca rdiogram abnormal 470341392 Active 2013 Not Available [facility] 2 23:33:03 Autoimmun e hepatitis 587687467 Active 2013 Not Available [facility] 2 23:33:03 Angina pectoris 740112273 Active 2013 Not Available [facility] 2 23:33:03 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 43905964517 9100 Active 2019 Not Available [facility] 2 23:33:03 Carotid artery stenosis 97962426 Active 2013 Not Available [facility] 2 23:33:03 Hypertens wiley disorder 92274155 Active 2013 Hyperten grace Not Available [facility] 2 23:33:03 Abnormal results of cardiovas cular function studies 676744308 Active 2013 Not Available [facility] 2 23:33:03 Hypothyro idism 33074788 Active 2013 Not Available [facility] 2 23:33:03 Coronary arteriosc lerosis 55358194 Active 2021 Coronary artery disease Not Available [facility] 2 23:33:03 Ischemic heart disease 278164637 Active 2021 Ischemic heart disease Not Available [facility] 2 23:33:03 Essential hypertens ion 76328384 Active 2021 Essential hypertens ion Not Available [facility] 2 23:33:04 Cerebral infarctio n 382455500 Active 2013 Not Available [facility] 2 23:33:04 Chest pain 60724788 Active 2013 Not Available [facility] 2 23:33:04 Adhesive capsuliti s of shoulder 672947134 Active 2013 Not Available [facility] 2 23:33:04 Cirrhosis of liver 49802211 Active 2021 Nile Cardona MD [facility] e [address] [place] [address], [phone] , [facility] & [place] 2 10:01:30 Cerebrova scular accident 677693719 Active 2021 Nile Cardona MD [facility] e [address] [place] [address], [phone] , [facility] & [place] 2 10:01:49 Problem Notes None recorded. Procedures Surgical History Date Name Laterality Status Provider Name and Address Organization Details Recorded Time Cardiac Catheterization completed Alicia GILLIAM - [facility] 02/25/2022 09:43:19 leg repair completed Alicia GILLIAM - [facility] [place] 02/25/2022 09:43:33 biopsy of liver completed Alicia GILLIAM - [facility] & [place] 02/25/2022 09:43:44 Imaging Results None recorded. Procedure Notes None [...] Available Not Available No t Available vitamin V27-dxdxi acid injection solution 1 injection monthly active [...] Updated DateTime 2 175.26 cm 25 kg/m2 69898.2 7 g 100 % 100 % 55 /min 130 mm[Hg] 90 mm[Hg] Alicia Hatch MD - [facility] [place] 2 09:41:18 Social History None recorded. Functional Status None recorded. Mental Status None recorded. Family History Nothing Reported. Medical History Condition Response Thyroid Disease Y Stroke Y Hypertension Y Past Encounters Encounter ID Performer Location Encounter Start Date Encounter Closed Date Diagnosis/Indication Diagnosis SNOMED-CT Code Diagnosis ICD10 Code Diagnosis Note [id number] Nile Cardona MD [address] [place] [address] 02/25/2022 09:03:51 02/25/2022 09:43:42 Essential hypertension 06811127 I10 Coronary arteriosclerosis 00463101 I25.10 Carotid ar inessa stenosis 60340059 I65.29 Cirrhosis of liver 007 K74.60 Cerebrovas cular accident 961011789 I63.9 Health Concerns Section Related Observation LastModified by Organization Detai ls LastModified Time None Recorded Concern Status LastModified by Organization Details LastModified Time None Recorded Advance Directives Directive None Recorded Payers Insurance Date Sequence Insurance Name Policy Number Policy Nguyen Covered Member ID Nguyen Member ID Guarantor Name 08/27/2022 2 AARP (MEDICARE SUPPLEMENT) René Cornejo [id number] René Cornejo 08/27/2022 1 [place] René Cornejo [id number] René Cornejo 08/15/2019 2 AARP René Cornejo [id number] René Cornejo 08/29/2019 3 [place] René Cornejo [id number] René Cornejo Notes Date Note Type Note [...] breath orthopnea or PND Nile Cardona MD [address] [place] [address],[address], [place], [address], [facility] - [facility] [place] [facility] [place] 02/25/2022 10:32:16
== END 2024-08-13 23:59 | disposition home or self-care (01) ==
LOC: LAB.DROPOF 08-15 09:53
PROVIDERS: PCP Internal Medicine; Visit Provider Internal Medicine
DX: N39.0 Urinary tract infection, site not specified (principal); B96.20 Unspecified Escherichia coli [E. coli] as the cause of diseases classified elsewhere
CPT/HCPCS: 87086; 87088; 87186

== ENCOUNTER 2024-08-15 10:24 | Outpatient (CLI) | payer MEDICARE, SELFPAY ==
--- OUTSIDE RECORDS SUMMARY | 2024-04-16 08:12 | XMS_ITS | Continuity of Care Document ---
Author Name [facility] Organization [facility] Care Team Providers Care Manufacturing Weaver Name Role Phone [facility] Unavailable Unavailable Problems Combined list of problems from Department of [facility] and [facility] facilities. It does not include entries that were removed or entered in error. Problem Status Onset Date Problem Type Date of Resolution Comments Source Autoimmune hepatitis Active [facility] Benign essential hypertension Active Condition [facility] Constipation Active Condition [facility] Exposure to potentially hazardous substance [facility] Gastroesophageal reflux disease without esophagitis Active Condition [facility] History of cerebrovascular accident with residual deficit [facility] Hypothyroidism [facility] Vitamin B12 deficiency (non anemic) Active Condition [facility] Diagnosis: ICD-10-CM Z71.89 Other specified counseling Active Diagnosis [facility] Diagnosis: ICD-10-CM N39.0 Urinary tract infection, site not specified Active Diagnosis [facility] Diagnosis: ICD-10-CM R26.2 Difficulty in walking, not elsewhere classified Active Diagnosis [facility] Diagnosis: ICD-10-CM Z46.1 Encounter for fitting and adjustment of hearing aid Active Diagnosis [facility] Diagnosis: ICD-10-CM C22.8 Malignant neoplasm of liver, primary, unspecified as to type Active Diagnosis [facility] Diagnosis: ICD-10-CM Z86.73 Prsnl hx of TIA (TIA), and cereb infrc w/o resid deficits Active Diagnosis [facility] Diagnosis: ICD-10-CM H90.5 Unspecified sensorineural hearing loss Active Diagnosis [facility] Diagnosis: ICD-10-CM C22.0 Liver cell carcinoma Active Diagnosis [facility] Medications Combined list of outpatient medications from Department of [facility] and [facility] facilities.Medications provided include 1) outpatient medications from the last 15 months, and 2) patient-reported medications. Medication Details Route Status Patient Instructions Prescription Expires Prescription Number Last Dispense Date Ordering Provider Order Date Order Qty Source ASPIRIN 81MG TAB,EC TAKE ONE TABLET BY MOUTH DAILY ORAL ACTIVE MILAD LAIRD 2023 [place] [facility] CALCIUM 500MG/VITAM IN D 200UNT TAB TAKE ONE TABLET BY MOUTH ORAL ACTIVE MILAD LAIRD 2023 [place] [facility] CARVEDILOL 6.25MG TAB TAKE ONE-HALF TABLET BY MOUTH TWICE A DAY ORAL ACTIVE MILAD LAIRD 2023 [place] [facility] CYCLOSPORIN E (GENGRAF) 25MG CAP,UD TAKE 1 CAPSULE BY MOUTH ORAL ACTIVE MILAD LAIRD 2023 [place] [facility] LEVOTHYROXI NE NA 112MCG TAB (SYNTHROID) TAKE ONE TABLET BY MOUTH DAILY ORAL ACTIVE MILAD LAIRD 2023 [place] [facility] MYCOPHENOLA TE MOFETIL 250MG CAP TAKE 1 CAPSULE BY MOUTH TWICE A DAY ORAL ACTIVE MILAD LAIRD 2023 [place] [facility] NITROGLYCER IN 0.4MG TAB,SUBLING UAL,BTL,25 DISSOLVE ONE TABLET UNDER THE TONGUE EVERY 5 MINUTES UP TO 3 DOSES FOR CHEST PAIN -IF NO RELIEF CALL 911 SUBLIN GUAL ACTIVE 04/17/2025 [id number] MILAD LAIRD 2024 1 [place] [facility] OXYBUTYNIN CL 5MG TAB,SA TAKE ONE TABLET BY MOUTH DAILY FOR BLADDER ORAL ACTIVE 02/22/2025 [id number] MILAD LAIRD 2023 90 [place] [facility] PANTOPRAZOL E NA 40MG TAB,EC TAKE ONE TABLET BY MOUTH ONCE A DAY 30 MINUTES BEFORE A MEAL ORAL ACTIVE MILAD LAIRD 2023 [place] [facility] POSACONAZOL E 100MG TAB,EC TAKE THREE TABLETS BY MOUTH DAILY ORAL ACTIVE MILAD LAIRD L 2023 [place] [facility] PRASUGREL HCL 10MG TAB TAKE ONE TABLET BY MOUTH DAILY ORAL ACTIVE SISI,MILAD VANDANA L 2023 [place] [facility] PRASUGREL HCL 10MG TAB TAKE ONE TABLET BY MOUTH DAILY ORAL ACTIVE SISI,MILAD VANDANA L 2023 [place] [facility] PREDNISONE 5MG TAB TAKE ONE TABLET BY MOUTH ORAL ACTIVE SISI,MILAD VANDANA L 2023 [place] [facility] ROSUVASTATI N CA 5MG TAB TAKE ONE TABLET BY MOUTH AT BEDTIME ORAL ACTIVE SISI,MILAD VANDANA L 2023 [place] [facility] SODIUM ZIRCONIUM CYCLOSILICA TE 5GM/PKT PWDR,RENST- ORAL TAKE 1 PACKET BY MOUTH DAILY ORAL ACTIVE SISI,MILAD VANDANA L 2023 [place] [facility] VALSARTAN 40MG TAB TAKE ONE TABLET BY MOUTH TWICE A DAY ORAL ACTIVE SISI,MILAD VANDANA L 2023 [place] [facility] Immunizations Combined list of available immunizations from the Department of Defense and Veterans Affairs facilities. Immunization Series Date Given Administered By Site Reaction Lot Number CVX Code Drug Metal Weather Stripper Status Comments Source INFLUENZA, HIGH-DOSE, TRIVALENT, PF 2023 LOKESH BORDEN LEFT DELTO ID [id number] 135 complet ed Completed Series, ADMINISTE RED AT [place], [place] [facility] INFLUENZA, HIGH-DOSE, QUADRIVALENT 2 2022 197 complet ed HISTORICA L INFORMATI ON - FROM OTHER REGISTRY, [place] [facility] INFLUENZA, HIGH-DOSE, QUADRIVALENT 1 2021 197 complet ed HISTORICA L INFORMATI ON - FROM OTHER REGISTRY, [place] [facility] PNEUMOCOCCAL CONJUGATE PCV20, POLYSACCHARID E [id number] CONJUGATE, ADJUVANT, PF 2021 216 complet ed [place] [facility] ZOSTER RECOMBINANT 2 2020 NONE 187 complet ed [place] [facility] COVID-19 (MODERNA), MRNA, LNP-S, PF, 100 MCG/0.5ML DOSE OR 50 MCG/0.25ML DOSE 3 2020 207 complet ed HISTORICA L INFORMATI ON - FROM OTHER REGISTRY, [place] [facility] ZOSTER RECOMBINANT 1 2020 187 complet ed [place] [facility] COVID-19 (MODERNA), MRNA, LNP-S, PF, 100 MCG/0.5 ML DOSE 2 2020 207 complet ed [place] [facility] COVID-19 (MODERNA), MRNA, LNP-S, PF, 100 MCG/0.5 ML DOSE 1 2020 207 complet ed [place] [facility] INFLUENZA, UNSPECIFIED FORMULATION 2019 88 complet ed [place] [facility] INFLUENZA, SEASONAL, INJECTABLE 2018 141 complet ed Employer [place] [facility] PNEUMOCOCCAL POLYSACCHARID E PPV23 2017 33 complet ed [place] [facility] TDAP 2016 115 complet ed Employer [place] [facility] Vital Signs Combined list of inpatient and outpatient Vital Signs from Department of Defense and Veterans Affairs, ranging from 12 months to all on record, depending upon the facility. Vital Sign Value Date Comments Source SYSTOLIC BLOOD PRESSURE 156 02/02/2024 10:25:01 [facility] DIASTOLIC BLOOD PRESSURE 85 02/02/2024 10:25:01 [facility] PULSE OXIMETRY 97 02/02/2024 10:25:01 [facility] 124 02/02/2024 10:25:01 [place] [facility] BMI 18 kg/m2 02/02/2024 10:25:01 [place] [facility] PAIN 0 02/02/2024 10:25:01 [place] [facility] HEIGHT 69 02/02/2024 10:25:01 [place] [facility] TEMPERATURE 98.6 02/02/2024 10:25:01 [facility] PULSE 62 02/02/2024 10:25:01 [place] [facility] RESPIRATION 12 02/02/2024 10:25:01 [facility] Encounters Combined list of: 1) Encounters from Department of Veterans Affairs facilities going backup to the last 18 months, not all [place] inpatient encounters are included; 2) Encounters from the Department of Defense facilities going backup to 280 months. Location Location Details Encounter Type Encounter Number Reason For Visit Attending Provider ADM Date DC Date Status Disposition Source [facility] Outpatient Encounter [id number] 06/02 [place] OFFICE O/P EST MOD 30 MIN [id number] Diagnos is: ICD-10- CM C22.0 Liver cell carcino YISEL Russell TTANY L 06/02 [place] [facility] HEARING AID EXAM BOTH EARS [id number] Diagnos is: ICD-10- CM H90.5 Unspeci fied sensori neural hearing loss ISA BLANCO 06/08 [place] [facility] Outpatient Encounter [id number] 06/29 [place] [facility] HC PRO PHONE CALL 5-10 MIN [id number] Diagnos is: ICD-10- CM Z71.89 Other specifi ed middle school guidance counselor ZAY Bermeo 07/02 [place] [facility] HEARING AID FITTING/CH ECKING [id number] Diagnos is: ICD-10- CM Z46.1 Encount er for fitting and adjustm ent of hearing aid ISA BLANCO 07/06 [place] [facility] WHEELCHAIR MNGMENT TRAINING [id number] Diagnos is: ICD-10- CM Z86.73 Prsnl hx of TIA (TIA), and cereb infrc w/o resid deficit s HUSSAIN MINOR W 07/10 [place] [facility] Outpatient Encounter [id number] YISEL LAIRD L 07/20 [place] [facility] Outpatient Encounter [id number] Diagnos is: ICD-10- CM C22.8 Maligna nt neoplas m of liver, primary , unspeci fied as to type HUSSAIN MINOR W 08/02 [place] [facility] HEARING SERVICE [id number] Diagnos is: ICD-10- CM Z46.1 Encount er for fitting and adjustm ent of hearing aid ISA BLANCO 08/30 [place] [facility] Outpatient Encounter [id number] 09/12 [place] [facility] HC PRO PHONE CALL 5-10 MIN [id number] Diagnos is: ICD-10- CM R26.2 Difficu lty in walking , not elsewhe re classif ied LESLIE ESPARZA S 10/09 [place] [facility] OFFICE O/P EST LOW 20 MIN [id number] Diagnos is: ICD-10- CM N39.0 Urinary tract infecti on, site not specifi ed YISEL LAIRD L 02/01 [place] [facility] Outpatient Encounter [id number] 02/18 [place] [facility] HC PRO PHONE CALL 5-10 MIN [id number] Diagnos is: ICD-10- CM Z71.89 Other specifi ed middle school guidance counselor ZAY Bermeo 02/18 [place] [facility] Outpatient Encounter [id number] 02/28 [place] [facility] Outpatient Encounter [id number] 50 04/16 [place] [facility] Social History Combined list of available smoking, tobacco, and other social history from Department of Defense and Veterans Affairs facilities. Social History Type Response Date Comment [facility] e Tobacco smoking status NHIS ME-TOBACCO NEVER USED 06/03/2023 [facility] History of tobacco use ME-TOBACCO NEVER USED 11/15/2021 [facility] History of tobacco use ME-TOBACCO FORMER USER 05/26/2020 [facility] History of tobacco use ME-TOBACCO NEVER USED 04/02/2019 [facility]
[2024-08-15 11:45] LABS: Albumin Level 3.3 g/dl (3.5-5.0); Chloride 104 mmol/L (98-107); Sodium 135 mmol/L (136-145)
[2024-08-15 11:46] LABS: Potassium 4.1 mmoL/L (3.5-5.1)
[2024-08-15 11:48] LABS: Alanine Aminotransferase 14 U/L (12-78); Anion Gap 8.1 mEq/L (5-15); Aspartate Amino Transferase 16 U/L (17-59); Bilirubin,Total 0.8 mg/dl (0.2-1.3); Blood Urea Nitrogen 24 mg/dl (9-20); Carbon Dioxide 27 mmol/L (22.0-30.0); Estimated Glomerular Filt Rate 82 ml/min (>60); GFR (African American) 100 ML/MIN (>60)
[2024-08-15 11:49] LABS: Albumin/Globulin Ratio 1.5 (1.1-1.8); Alkaline Phosphatase 102 U/L (38-126); Calcium 9.1 mg/dl (8.4-10.2); Globulin 2.2 g/dL (1.3-3.2); Glucose 90 mg/dl (74-100); Total Protein,Serum 5.5 g/dl (6.3-8.2)
== END 2024-08-15 23:59 | disposition home or self-care (01) ==
LOC: LAB 10:25
PROVIDERS: PCP Internal Medicine; Visit Provider Internal Medicine
DX: E87.6 Hypokalemia (principal)
CPT/HCPCS: 36415; 80053

== ENCOUNTER 2024-09-05 14:37 | Outpatient (CLI) | payer MEDICARE, SELFPAY ==
--- OUTSIDE RECORDS SUMMARY | 2022-10-03 05:00 | XMS_ITS | Encounter Summary ---
Author Organization [place] [address] Care Team Providers Care Shipping Support Clerk Name Role Phone Unavailable Primary Care Provider Unavailabl e Encounter Details Date Type Department Care Team (Late st Contact Info) Description 10/03/2022 5:00 AM EDT Hospital Encounter [facility] Referral Lab [address] [phone] Eloise Box MD [address] [facility] [address] [place] [address] Social History Tobacco Use Types [...]
--- OUTSIDE RECORDS SUMMARY | 2022-10-03 06:00 | XMS_ITS | Encounter Summary ---
Author Organization [place] [address] Care Team Providers Care Instrument/Control Technician Name Role Phone Unavailable Primary Care Provider Unavailabl e Encounter Details Date Type Department Care Team (Late st Contact Info) Description 10/03/2022 6:00 AM EDT Hospital Encounter [facility] Referral Lab [address] [phone] Minh Chacko MD [address] [place] [address] Social History Tobacco Use Types Packs/Day Years Used Date Smoking Tobacco: Never Assessed Sex and Gender Information Value Date Recorded Sex Assigned at Not on file Legal Sex Male 10:28 AM EDT Gender Identity Not on file Sexual Orientation Not on file documented as of this encounter Plan of Treatment Not on file documented as of this encounter Results * (ABNORMAL) COMPREHENSIVE METABOLIC PANEL (10/03/2022 7:02 AM EDT) Sodium 130(L) 136 - 145 mmol/L 10/03/2022 9:01 AM EDT [facility] Potassium 4.3 3.5 - 5.0 mmol/L 10/03/2022 9:01 AM EDT [facility] Chloride 92(L) 98 - 107 mmol/L 10/03/2022 9:01 AM EDT [facility] Total CO2 26 22 - 29 mmol/L 10/03/2022 9:01 AM EDT [facility] Anion Gap 12 7 - 16 mmol/L 10/03/2022 9:01 AM EDT [facility] Calcium 9.1 8.8 - 10.4 mg/dL 10/03/2022 9:01 AM EDT [facility] Glucose Lvl 134(H) 82 - 100 mg/dL 10/03/2022 9:01 AM EDT [facility] BUN 37(H) 8 - 23 mg/dL 10/03/2022 9:[address] [facility] Creatinine 1.00 0.67 - 1.30 mg/dL 10/03/2022 9:[address] [facility] Albumin 3.7 3.2 - 4.6 gm/dL 10/03/2022 9:[address] [facility] Total Protein 5.9(L) 6.4 - 8.3 gm/dL 10/03/2022 9:[address] [facility] Bili Total 0.5 0.2 - 1.4 mg/dL 10/03/2022 9:[address] [facility] ALT 19 <=41 U/L 10/03/2022 9:[address] [facility] AST 15 <=40 U/L 10/03/2022 9:[address] [facility], [facility] Alk Phos 143(H) 40 - 129 U/L 10/03/2022 9:[address] [facility] eGFR (CKD-EPIcr 2020) 79 >=60 mL/min/1.7 3 m2 10/03/2022 9:01 AM EDT [facility] Comment:Estimated GFR was ca lculated using the CKD-EPIcr (2020) equation refit without race. The equation is recommended by the National Kidney Foundation - [place] Society of Nephrology Task Force. Blood VENOUS BLOOD / Unknown Venipuncture / Unknown 10/03/2022 7:02 AM EDT 10/03/2022 8:06 AM EDT us Minh Chacko MD CHEMISTRY ORDERABLES Fi nal Result [facility] [address] [facility] , [place] [address] [facility] [address] [place] [address] * (ABNORMAL) CBC (10/03/2022 7:02 AM EDT) Pathologist [facility] WBC 6.8 3.7 - 10.3 x10(3)/mcL 10/03/2022 8:37 AM EDT [facility] RBC 2.68(L) 4.60 - 6.10 x10(6)/mcL 10/03/2022 8:37 AM EDT [facility] Hgb 8.7(L) 13.7 - 17.5 g/dL 10/03/2022 8:37 AM EDT [facility] Hct 26.9(L) 40.0 - 51.0 % 10/03/2022 8:37 AM EDT [facility] MCV 100.4(H) 80.0 - 100.0 fL 10/03/2022 8:37 AM EDT [facility] MCH 32.5 26.0 - 34.0 pg 10/03/2022 8:37 AM EDT [facility] MCHC 32.3 30.7 - 35.5 g/dL 10/03/2022 8:37 AM EDT [facility] RDW 15.6(H) <=14.9 % 10/03/2022 8:37 AM EDT [facility] Platelet 280 155 - 369 x10(3)/mcL 10/03/2022 8:37 AM EDT [facility] MPV 10.3 8.8 - 12.5 fL 10/03/2022 8:37 AM EDT [facility] Blood VENOUS BLOOD / Unknown Venipuncture / Unknown 10/03/2022 7:02 AM EDT 10/03/2022 8:06 AM EDT us Minh Chacko MD HEMATOLOGY ORDERABLES F inal Result [facility] [address] [facility] , [place] [address] documented in this encounter Visit Diagnoses Not on filedocumented in this encounter
--- OUTSIDE RECORDS SUMMARY | 2022-10-07 11:00 | XMS_ITS | Encounter Summary ---
Author Organization [place] [address] Care Team Providers Care Metal Fabricating Inspector Name Role Phone Unavailable Primary Care Provider Unavailabl e Encounter Details Date Type Department Care Team (Late st Contact Info) Description 10/07/2022 11:00 AM EDT Hospital Encounter [facility] [address] [phone] Minh Chacko MD [address] [place] [address] Social History Tobacco Use Types Packs/Day Years Used Date Smoking Tobacco: Never Assessed Sex and Gender Information Value Date Recorded Sex Assigned at Not on file Legal Sex Male 10:28 AM EDT Gender Identity Not on file Sexual Orientation Not on file documented as of this encounter Plan of Treatment Not on file documented as of this encounter Results * (ABNORMAL) CBC WITH DIFF (10/07/2022 11:45 AM EDT) WBC 6.0 3.7 - 10.3 x10(3)/mcL 10/07/2022 12:47 PM EDT [facility] RBC 2.69(L) 4.60 - 6.10 x10(6)/mcL 10/07/2022 12:47 PM EDT [facility] Hgb 8.8(L) 13.7 - 17.5 g/dL 10/07/2022 12:47 PM EDT [facility] Hct 26.6(L) 40.0 - 51.0 % 10/07/2022 12:47 PM EDT [facility] MCV 98.9 80.0 - 100.0 fL 10/07/2022 12:47 PM EDT [facility] MCH 32.7 26.0 - 34.0 pg 10/07/2022 12:47 PM EDT [facility] MCHC 33.1 30.7 - 35.5 g/dL 10/07/2022 12:47 PM EDT [facility] RDW 15.2(H) <=14.9 % 10/07/2022 12:47 PM EDT [facility] Platelet 297 155 - 369 x10(3)/mcL 10/07/2022 12:47 PM EDT [facility] MPV 10.3 8.8 - 12.5 fL 10/07/2022 12:47 PM EDT [facility] Neut Percent 70.7 % 10/07/2022 12:47 PM EDT [facility] Comment:Neutrophils equals s egs plus bands Imm Gran% 0.7 % 10/07/2022 12:47 PM EDT [facility] Comment:Automated count of m etamyelocytes, myelocytes and promyelocytes. Lymph Percent 11.1 % 10/07/2022 12:47 PM EDT [facility] [place] Percent 12.4 % 10/07/2022 12:47 PM EDT [facility] Eos Percent 4.4 % 10/07/2022 12:47 PM EDT [facility] Baso Percent 0.7 % 10/07/2022 12:47 PM EDT [facility] Neut # 4.2 1.6 - 6.1 x10(3)/mcL 10/07/2022 12:47 PM EDT [facility] Comment:Neutrophils equals s egs plus bands IMMGRAN# 0.0 0.0 - 0.1 x10(3)/mcL 10/07/2022 12:47 PM EDT [facility] Comment:Automated count of m etamyelocytes, myelocytes and promyelocytes. An absolute IG <0.1 is reported as 0.0. Lymph # 0.7(L) 1.2 - 3.9 x10(3)/mcL 10/07/2022 12:47 PM EDT [facility] [place] # 0.7 0.3 - 0.9 x10(3)/mcL 10/07/2022 12:47 PM EDT [facility] Eos# 0.3 0.0 - 0.5 x10(3)/mcL 10/07/2022 12:47 PM EDT [facility] Baso # 0.0 0.0 - 0.1 x10(3)/mcL 10/07/2022 12:47 PM EDT [facility] Blood VENOUS BLOOD / Unknown Venipuncture / Unknown 10/07/2022 11:45 AM EDT 10/07/2022 12:30 PM EDT us Minh Chacko MD HEMATOLOGY ORDERABLES F inal Result [facility] [address] [facility] , [place] [address] documented in this encounter Visit Diagnoses Not on filedocumented in this encounter
--- OUTSIDE RECORDS SUMMARY | 2022-10-07 11:00 | XMS_ITS | Encounter Summary ---
Author Organization [place] [address] Care Team Providers Care Public Finance Specialist Name Role Phone Unavailable Primary Care Provider Unavailabl e Encounter Details Date Type Department Care Team (Late st Contact Info) Description 10/07/2022 11:00 AM EDT Hospital Encounter [facility] [address] [phone] Minh Chacko MD [address] [place] [address] Social History Tobacco Use Types Packs/Day Years Used Date Smoking Tobacco: Never Assessed Sex and Gender Information Value Date Recorded Sex Assigned at Not on file Legal Sex Male 10:28 AM EDT Gender Identity Not on file Sexual Orientation Not on file documented as of this encounter Plan of Treatment Not on file documented as of this encounter Results * (ABNORMAL) RENAL FUNCTION PANEL (10/07/2022 11:45 AM EDT) Sodium 129(L) 136 - 145 mmol/L 10/07/2022 1:28 PM EDT [facility] Potassium 5.0 3.5 - 5.0 mmol/L 10/07/2022 1:28 PM EDT [facility] Chloride 91(L) 98 - 107 mmol/L 10/07/2022 1:28 PM EDT [facility] Total CO2 25 22 - 29 mmol/L 10/07/2022 1:28 PM EDT [facility] Anion Gap 13 7 - 16 mmol/L 10/07/2022 1:28 PM EDT [facility] Calcium 9.6 8.8 - 10.4 mg/dL 10/07/2022 1:28 PM EDT [facility] Glucose Lvl 101(H) 82 - 100 mg/dL 10/07/2022 1:28 PM EDT [facility] BUN 38(H) 8 - 23 mg/dL 10/07/2022 1:28 PM EDT [facility] Creatinine 1.18 0.67 - 1.30 mg/dL 10/07/2022 1:28 PM EDT [facility] Albumin 3.8 3.2 - 4.6 gm/dL 10/07/2022 1:28 PM EDT [facility] Phosphorus 2.4(L) 2.5 - 4.5 mg/dL 10/07/2022 1:28 PM EDT [facility] eGFR (CKD-EPIcr 2020) 65 >=60 mL/min/1.7 3 m2 10/07/2022 1:28 PM EDT [facility] Comment:Estimated GFR was ca lculated using the CKD-EPIcr (2020) equation refit without race. The equation is recommended by the National Kidney Foundation - [place] Society of Nephrology Task Force. Blood VENOUS BLOOD / Unknown Venipuncture / Unknown 10/07/2022 11:45 AM EDT 10/07/2022 12:30 PM EDT Minh Chacko MD CHEMISTRY ORDERABLES Fi nal Result [facility] [address] [facility] [address] [place] [address] [facility] 1 [place] [address] documented in this encounter Visit Diagnoses Not on filedocumented in this encounter
--- OUTSIDE RECORDS SUMMARY | 2022-10-13 05:00 | XMS_ITS | Encounter Summary ---
Author Organization [place] [address] Care Team Providers Care Bandmill Operator Name Role Phone Unavailable Primary Care Provider Unavailabl e Encounter Details Date Type Department Care Team (Late st Contact Info) Description 10/13/2022 5:00 AM EDT Hospital Encounter [facility] Referral Lab [address] [phone] Minh Chacko MD [address] [place] [address] Social History Tobacco Use Types Packs/Day Years [...] encounter Results * (ABNORMAL) CBC WITH DIFF (10/13/2022 7:31 AM EDT) WBC 6.6 3.7 - 10.3 x10(3)/mcL 10/13/2022 8:42 AM EDT [facility] RBC 2.51(L) 4.60 - 6.10 x10(6)/mcL 10/13/2022 8:42 AM EDT [facility] Hgb 8.1(L) 13.7 - 17.5 g/dL 10/13/2022 8:42 AM EDT [facility] Hct 25.2(L) 40.0 - 51.0 % 10/13/2022 8:42 AM EDT [facility] MCV 100.4(H) 80.0 - 100.0 fL 10/13/2022 8:42 AM EDT [facility] MCH 32.3 26.0 - 34.0 pg 10/13/2022 8:42 AM EDT [facility] MCHC 32.1 30.7 - 35.5 g/dL 10/13/2022 8:42 AM EDT [facility] RDW 15.1(H) <=14.9 % 10/13/2022 8:42 AM EDT [facility] Platelet 278 155 - 369 x10(3)/mcL 10/13/2022 8:42 AM EDT [facility] MPV 10.1 8.8 - 12.5 fL 10/13/2022 8:42 AM EDT [facility] Neut Percent 62.8 % 10/13/2022 8:42 AM EDT [facility] Comment:Neutrophils equals s egs plus bands Imm Gran% 0.5 % 10/13/2022 8:42 AM EDT [facility] Comment:Automated count of m etamyelocytes, myelocytes and promyelocytes. Lymph Percent 21.1 % 10/13/2022 8:42 AM EDT [facility] [place] Percent 10.3 % 10/13/2022 8:42 AM EDT [facility] Eos Percent 4.5 % 10/13/2022 8:42 AM EDT [facility] Baso Percent 0.8 % 10/13/2022 8:42 AM EDT [facility] Neut # 4.2 1.6 - 6.1 x10(3)/mcL 10/13/2022 8:42 AM EDT [facility] Comment:Neutrophils equals s egs plus bands IMMGRAN# 0.0 0.0 - 0.1 x10(3)/mcL 10/13/2022 8:42 AM EDT [facility] Comment:Automated count of m etamyelocytes, myelocytes and promyelocytes. An absolute IG <0.1 is reported as 0.0. Lymph # 1.4 1.2 - 3.9 x10(3)/mcL 10/13/2022 8:42 AM EDT [facility] [place] # 0.7 0.3 - 0.9 x10(3)/[facility] 10/13/2022 8:42 AM EDT [facility] Eos# 0.3 0.0 - 0.5 x10(3)/mcL 10/13/2022 8:42 AM EDT [facility] Baso # 0.1 0.0 - 0.1 x10(3)/mcL 10/13/2022 8:42 AM EDT [facility] Blood VENOUS BLOOD / Unknown Venipuncture / Unknown 10/13/2022 7:31 AM EDT 10/13/2022 8:02 AM EDT Minh Chacko MD HEMATOLOGY ORDERABLES F inal Result [facility] [address] [facility] , [place] [address] * (ABNORMAL) URIC ACID (10/13/2022 7:31 AM EDT) Uric Acid 10.8(H) 3.4 - 7.0 mg/dL 10/13/2022 9:33 AM EDT [facility] Blood VENOUS BLOOD / Unknown Venipuncture / Unknown 10/13/2022 7:31 AM EDT 10/13/2022 8:02 AM EDT us Minh Chacko MD CHEMISTRY ORDERABLES Fi nal Result Performing Organization Address City/[facility]/ZIP Co de Phone Number [facility]end [facility] [address] [facility] , [place] [address] documented in this encounter Visit Diagnoses Not on filedocumented in this encounter Orders Lab Orders Without Results Count Last Ordered D ate First Ordered Date HEPATIC FUNCTION PANEL 1 10/13/2022 RENAL FUNCTION PANEL 1 10/13/2022 documented in this encounter
--- OUTSIDE RECORDS SUMMARY | 2022-10-17 05:00 | XMS_ITS | Encounter Summary ---
Author Organization [place] [address] Care Team Providers Care Emergency Specialist Name Role Phone Unavailable Primary Care Provider Unavailabl e Encounter Details Date Type Department Care Team (Late st Contact Info) Description 10/17/2022 5:00 AM EDT Hospital Encounter [facility] Referral Lab [address] [phone] Minh Chacko MD [address] [place] [address] Social History Tobacco Use Types Packs/Day Years [...] encounter Results * (ABNORMAL) CBC WITH DIFF (10/17/2022 5:29 AM EDT) WBC 7.0 3.7 - 10.3 x10(3)/mcL 10/17/2022 8:46 AM EDT [facility] RBC 2.70(L) 4.60 - 6.10 x10(6)/mcL 10/17/2022 8:46 AM EDT [facility] Hgb 8.6(L) 13.7 - 17.5 g/dL 10/17/2022 8:46 AM EDT [facility] Hct 26.7(L) 40.0 - 51.0 % 10/17/2022 8:46 AM EDT [facility] MCV 98.9 80.0 - 100.0 fL 10/17/2022 8:46 AM EDT [facility] MCH 31.9 26.0 - 34.0 pg 10/17/2022 8:46 AM EDT [facility] MCHC 32.2 30.7 - 35.5 g/dL 10/17/2022 8:46 AM EDT [facility] RDW 14.8 <=14.9 % 10/17/2022 8:46 AM EDT [facility] Platelet 346 155 - 369 x10(3)/mcL 10/17/2022 8:46 AM EDT [facility] MPV 10.4 8.8 - 12.5 fL 10/17/2022 8:46 AM EDT [facility] Neut Percent 60.9 % 10/17/2022 8:46 AM EDT [facility] Comment:Neutrophils equals s egs plus bands Imm Gran% 1.3 % 10/17/2022 8:46 AM EDT [facility] Comment:Automated count of m etamyelocytes, myelocytes and promyelocytes. IG >1% represents a left shift and provides an early indication of an infection or inflammatory process. Lymph Percent 22.2 % 10/17/2022 8:46 AM EDT [facility] [place] Percent 11.7 % 10/17/2022 8:46 AM EDT [facility] Eos Percent 3.3 % 10/17/2022 8:46 AM EDT [facility] Baso Percent 0.6 % 10/17/2022 8:46 AM EDT [facility] Neut # 4.3 1.6 - 6.1 x10(3)/mcL 10/17/2022 8:46 AM EDT [facility] Comment:Neutrophils equals s egs plus bands IMMGRAN# 0.1 0.0 - 0.1 x10(3)/mcL 10/17/2022 8:46 AM EDT [facility] Comment:Automated count of m etamyelocytes, myelocytes and promyelocytes. An absolute IG <0.1 is reported as 0.0. Lymph # 1.6 1.2 - 3.9 x10(3)/mcL 10/17/2022 8:46 AM EDT [facility] [place] # 0.8 0.3 - 0.9 x10(3)/mcL 10/17/2022 8:46 AM EDT [facility] Eos# 0.2 0.0 - 0.5 x10(3)/mcL 10/17/2022 8:46 AM EDT [facility] Baso # 0.0 0.0 - 0.1 x10(3)/mcL 10/17/2022 8:46 AM EDT [facility] Blood VENOUS BLOOD / Unknown Venipuncture / Unknown 10/17/2022 5:29 AM EDT 10/17/2022 8:10 AM EDT us Minh Chacko MD HEMATOLOGY ORDERABLES F inal Result [facility] 1 [facility] , [place] [address] documented in this encounter Visit Diagnoses Not on filedocumented in this encounter Orders Lab Orders Without Results Count Last Ordered D ate First Ordered Date HEPATIC FUNCTION PANEL 1 10/17/2022 RENAL FUNCTION PANEL 1 10/17/2022 documented in this encounter
--- OUTSIDE RECORDS SUMMARY | 2023-03-28 03:05 | XMS_ITS | Encounter Summary ---
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
--- OUTSIDE RECORDS SUMMARY | 2024-04-16 08:12 | XMS_ITS | Continuity of Care Document ---
Author Name [facility] Organization [facility] Care Team Providers Care Bag Machine Operator Helper Name Role Phone [facility] Unavailable Unavailable Problems Combined list of problems from Department of [facility] and [facility] facilities. It does not include entries that were removed or entered in error. Problem Status Onset Date Problem Type Date of Resolution Comments Source Autoimmune hepatitis Active Condition [facility] Benign essential hypertension Active Condition [facility] Constipation Active Condition [facility] Exposure to potentially hazardous substance Active [facility] Gastroesophageal reflux disease without esophagitis Active Condition [facility] History of cerebrovascular accident with residual deficit Active [facility]othyroidism Active [facility] Vitamin B12 deficiency (non anemic) Active Condition [facility] Diagnosis: ICD-10-CM Z71.89 Other specified counseling Active Diagnosis [facility] Diagnosis: ICD-10-CM N39.0 Urinary tract infection, site not specified Active Diagnosis [facility] Diagnosis: ICD-10-CM R26.2 Difficulty in walking, not elsewhere classified Active Diagnosis [facility] Diagnosis: ICD-10-CM Z46.1 Encounter for fitting and adjustment of hearing aid Active Diagnosis [facility] Diagnosis: ICD-10-CM C22.8 Malignant neoplasm of liver, primary, unspecified as to type Active Diagnosis [facility] Diagnosis: ICD-10-CM Z86.73 Prsnl hx of TIA (TIA), and cereb infrc w/o resid deficits Active Diagnosis [facility] Diagnosis: ICD-10-CM H90.5 Unspecified sensorineural hearing loss Active Diagnosis [facility] Diagnosis: ICD-10-CM C22.0 Liver cell carcinoma Active Diagnosis [facility] Medications Combined list of outpatient medications from Department of [facility] and [facility] facilities.Medications provided include 1) outpatient medications from the last 15 months, and 2) patient-reported medications. Medication Details Route Status Patient Instructions Prescription Expires Prescription Number Last Dispense Date Ordering Provider Order Date Order Qty Source ASPIRIN 81MG TAB,EC TAKE ONE TABLET BY MOUTH DAILY ORAL ACTIVE MILAD LAIRD 2023 [place] [facility] CALCIUM 500MG/VITAM IN D 200UNT TAB TAKE ONE TABLET BY MOUTH ORAL ACTIVE MILAD LAIRD 2023 [place] [facility] CARVEDILOL 6.25MG TAB TAKE ONE-HALF TABLET BY MOUTH TWICE A DAY ORAL ACTIVE MILAD LAIRD 2023 [place] [facility] CYCLOSPORIN E (GENGRAF) 25MG CAP,UD TAKE 1 CAPSULE BY MOUTH ORAL ACTIVE MILAD LAIRD 2023 [place] [facility] LEVOTHYROXI NE NA 112MCG TAB (SYNTHROID) TAKE ONE TABLET BY MOUTH DAILY ORAL ACTIVE MILAD LAIRD 2023 [place] [facility] MYCOPHENOLA TE MOFETIL 250MG CAP TAKE 1 CAPSULE BY MOUTH TWICE A DAY ORAL ACTIVE MILAD LAIRD 2023 [place] [facility] NITROGLYCER IN 0.4MG TAB,SUBLING UAL,BTL,25 DISSOLVE ONE TABLET UNDER THE TONGUE EVERY 5 MINUTES UP TO 3 DOSES FOR CHEST PAIN -IF NO RELIEF CALL 911 SUBLIN GUAL ACTIVE 04/17/2025 [id number] MILAD LAIRD 2024 1 [place] [facility] OXYBUTYNIN CL 5MG TAB,SA TAKE ONE TABLET BY MOUTH DAILY FOR BLADDER ORAL ACTIVE 02/22/2025 [id number] 4 MILAD LAIRD 2023 90 [place] [facility] PANTOPRAZOL E NA 40MG TAB,EC TAKE ONE TABLET BY MOUTH ONCE A DAY 30 MINUTES BEFORE A MEAL ORAL ACTIVE MILAD LAIRD 2023 [place] [facility] POSACONAZOL E 100MG TAB,EC TAKE THREE TABLETS BY MOUTH DAILY ORAL ACTIVE MILAD LAIRD L 2023 [place] [facility] PRASUGREL HCL 10MG TAB TAKE ONE TABLET BY MOUTH DAILY ORAL ACTIVE SISI,MILAD VANDANA L 2023 [place] [facility] PRASUGREL HCL 10MG TAB TAKE ONE TABLET BY MOUTH DAILY ORAL ACTIVE SISI,MILAD VANDANA L 2023 [place] [facility] PREDNISONE 5MG TAB TAKE ONE TABLET BY MOUTH ORAL ACTIVE SISI,MILAD VANDANA L 2023 [place] [facility] ROSUVASTATI N CA 5MG TAB TAKE ONE TABLET BY MOUTH AT BEDTIME ORAL ACTIVE SISI,MILAD VANDANA L 2023 [place] [facility] SODIUM ZIRCONIUM CYCLOSILICA TE 5GM/PKT PWDR,RENST- ORAL TAKE 1 PACKET BY MOUTH DAILY ORAL ACTIVE SISI,MILAD VANDANA L 2023 [place] [facility] VALSARTAN 40MG TAB TAKE ONE TABLET BY MOUTH TWICE A DAY ORAL ACTIVE SISI,IMLAD VANDANA L 2023 [place] [facility] Immunizations Combined list of available immunizations from the Department of Defense and Veterans Affairs facilities. Immunization Series Date Given Administered By Site Reaction Lot Number CVX Code Drug Hall Supervisor Status Comments Source INFLUENZA, HIGH-DOSE, TRIVALENT, PF 2023 LOKESH BORDEN LEFT DELTO ID [id number] 135 complet ed Completed Series, ADMINISTE RED AT MD, [place] [facility] INFLUENZA, HIGH-DOSE, QUADRIVALENT 2 2022 197 complet ed HISTORICA L INFORMATI ON - FROM OTHER REGISTRY, [place] [facility] INFLUENZA, HIGH-DOSE, QUADRIVALENT 1 2021 197 complet ed HISTORICA L INFORMATI ON - FROM OTHER REGISTRY, [place] [facility] PNEUMOCOCCAL CONJUGATE PCV20, POLYSACCHARID E [id number] CONJUGATE, ADJUVANT, PF 2021 216 complet ed [place] [facility] ZOSTER RECOMBINANT 2 2020 NONE 187 complet ed [place] [facility] COVID-19 (MODERNA), MRNA, LNP-S, PF, 100 MCG/0.5ML DOSE OR 50 MCG/0.25ML DOSE 3 2020 207 complet ed HISTORICA L INFORMATI ON - FROM OTHER REGISTRY, [place] [facility] ZOSTER RECOMBINANT 1 2020 187 complet ed [place] [facility] COVID-19 (MODERNA), MRNA, LNP-S, PF, 100 MCG/0.5 ML DOSE 2 2020 207 complet ed [place] [facility] COVID-19 (MODERNA), MRNA, LNP-S, PF, 100 MCG/0.5 ML DOSE 1 2020 207 complet ed [place] [facility] INFLUENZA, UNSPECIFIED FORMULATION 2019 88 complet ed [place] [facility] INFLUENZA, SEASONAL, INJECTABLE 2018 141 complet ed Employer [place] [facility] PNEUMOCOCCAL POLYSACCHARID E PPV23 2017 33 complet ed [place] [facility] TDAP 2016 115 complet ed Employer [place] [facility] Vital Signs Combined list of inpatient and outpatient Vital Signs from Department of Defense and Veterans Affairs, ranging from 12 months to all on record, depending upon the facility. Vital Sign Value Date Comments Source SYSTOLIC BLOOD PRESSURE 156 02/02/2024 10:25:01 [facility] DIASTOLIC BLOOD PRESSURE 85 02/02/2024 10:25:01 [facility] PULSE OXIMETRY 97 02/02/2024 10:25:01 [facility] 124 02/02/2024 10:25:01 [place] [facility] BMI 18 kg/m2 02/02/2024 10:25:01 [place] [facility] PAIN 0 02/02/2024 10:25:01 [place] [facility] HEIGHT 69 02/02/2024 10:25:01 [place] [facility] TEMPERATURE 98.6 02/02/2024 10:25:01 [facility] PULSE 62 02/02/2024 10:25:01 [place] [facility] RESPIRATION 12 02/02/2024 10:25:01 [facility] Encounters Combined list of: 1) Encounters from Department of Veterans Affairs facilities going backup to the last 18 months, not all [place] inpatient encounters are included; 2) Encounters from the Department of Defense facilities going backup to 280 months. Location Location Details Encounter Type Encounter Number Reason For Visit Attending Provider ADM Date DC Date Status Disposition Source [facility] Outpatient Encounter [id number] 06/02 [place] OFFICE O/P EST MOD 30 MIN [id number] Diagnos is: ICD-10- CM C22.0 Liver cell carcino YISEL Russell TTANY L 06/02 [place] [facility] HEARING AID EXAM BOTH EARS [id number] Diagnos is: ICD-10- CM H90.5 Unspeci fied sensori neural hearing loss ISA BLANCO 06/08 [place] [facility] Outpatient Encounter [id number] 06/29 [place] [facility] HC PRO PHONE CALL 5-10 MIN [id number] Diagnos is: ICD-10- CM Z71.89 Other specifi ed travel counselor ZAY Bermeo 07/02 [place] [facility] HEARING AID FITTING/CH ECKING [id number] Diagnos is: ICD-10- CM Z46.1 Encount er for fitting and adjustm ent of hearing aid ISA BLANCO 07/06 [place] [facility] WHEELCHAIR MNGMENT TRAINING [id number] Diagnos is: ICD-10- CM Z86.73 Prsnl hx of TIA (TIA), and cereb infrc w/o resid deficit s HUSSAIN MINOR W 07/10 [place] [facility] Outpatient Encounter [id number] YISEL LAIRD L 07/20 [place] [facility] Outpatient Encounter [id number] Diagnos is: ICD-10- CM C22.8 Maligna nt neoplas m of liver, primary , unspeci fied as to type HUSSAIN MINOR W 08/02 [place] [facility] HEARING SERVICE [id number] Diagnos is: ICD-10- CM Z46.1 Encount er for fitting and adjustm ent of hearing aid ISA BLANCO 08/30 [place] [facility] Outpatient Encounter [id number] 09/12 [place] HC PRO PHONE CALL 5-10 MIN [id number] Diagnos is: ICD-10- CM R26.2 Difficu lty in walking , not elsewhe re classif ied LESLIE ESPARZA S 10/09 [place] [facility] OFFICE O/P EST LOW 20 MIN [id number] Diagnos is: ICD-10- CM N39.0 Urinary tract infecti on, site not specifi ed YISEL LAIRD L 02/01 [place] [facility] Outpatient Encounter [id number] 21 02/18 [place] [facility] HC PRO PHONE CALL 5-10 MIN [id number] Diagnos is: ICD-10- CM Z71.89 Other specifi ed travel counselor ZAY Bermeo 02/18 [place] [facility] Outpatient Encounter [id number] 02/28 [place] [facility] Outpatient Encounter [id number] 04[facility] [place] [facility] Social History Combined list of available smoking, tobacco, and other social history from Department of Defense and Veterans Affairs facilities. Social History Type Response Date Comment [facility] e Tobacco smoking status NHIS MD-TOBACCO NEVER USED 06/03/2023 [facility] History of tobacco use MD-TOBACCO NEVER USED 11/15/2021 [facility] History of tobacco use MD-TOBACCO FORMER USER 05/26/2020 [facility] History of tobacco use MD-TOBACCO NEVER USED 04/02/2019 [facility]
--- OUTSIDE RECORDS SUMMARY | 2024-07-02 12:30 | XMS_ITS | Encounter Summary ---
Author Organization [facility] Address [address] [place] [address] Care Team Providers Care Tableau Developer Name Role Phone Samaria Price MD Unavailable Jasmin Marshall CNP Unavailable [phone] Megan Tamez RN Unavailable Unavailable Junie Aggarwal RN Unavailable Unava ilable Ese Johnson PharmD Unavailable Zaria vailable Carlos Dominguez DO Primary Care Provider [phone] Source Comments This information has been disclosed to you from confidential records protectfrom disclosure by state law. You shall make no further disclosure of thisinformation without the specific, written, and informed release of theindividual to whom it pertains, or as otherwise permitted by law. A generalauthorization for the release of medical or other information is not sufficientfor the purposes of the release of HIV test results or diagnoses. [id number] Reason for Visit * Reason Comments Congestive Heart Failure Encounter Details Date Type Department Care Team (Late st Contact Info) Description 07/02/2024 12:30 PM EDT Office Visit [facility] Advanced Heart Failure at [facility] Office [address] [facility] [address] [place] [phone] Genet Cha MD [phone] [place] [address] Beth Crowe, JORGE L [address] [place] [address] Iron deficiency (Primary Dx); Chronic systolic heart failure (CMS-HCC) Social History Tobacco Use Types Packs/Day Years Used Date Smoking Tobacco: Never Smokeless Tobacco: Never Alcohol Use Standard Drinks/Week Comments Never 0 (1 standard drink = 0.6 oz pur e alcohol) Utilities Answer Date Recorded In the past 12 months has th e electric, gas, oil, or water company threatened to shut off services in your home? No 04/11/2023 AUDIT-C Answer Date Recorded Q1: How often do you have a drink containing alcohol? Never 04/11/2023 Q2: How many drinks containi ng alcohol do you have on a typical day when you are drinking? Patient does not drink Q3: How often do you have si x or more drinks on one occasion? Never 04/11/2023 PHQ-2 Answer Date Recorded PHQ-2 Total Score 0 10/30/2023 Hunger Vital Sign Answer Date Recorded Within the past 12 months, y ou worried that your food would run out before you got the money to buy more. Never true 04/11/19 24 Within the past 12 months, t he food you bought just didn't last and you didn't have money to get more. Never true 04/11/2023 PRAPARE - Transportation Answer Date Re corded In the past 12 months, has l ack of transportation kept you from medical appointments or from getting medications? No 03/21 In the past 12 months, has l ack of transportation kept you from meetings, work, or from getting things needed for daily living? No 04/11/2023 Housing Stability Vital Sign Answer Ej e Recorded In the last 12 months, was t here a time when you were not able to pay the mortgage or rent on time? No 04/11/2023 In the last 12 months, how many places have you lived? 1 04/11/2023 In the last 12 months, was t here a time when you did not have a steady place to sleep or slept in a mcc (including now)? No 04/11/2023 Yearly Questionnaire Answer Date Record ed Do you need any assistance w ith obtaining housing, meals, medication, transportation or medical equipment? No 10/29 Assistance needed for: Not on file 4 Yearly Questionnaire Answer Date Record ed Do you need any assistance w ith obtaining housing, meals, medication, transportation or medical equipment? No 10/29 Assistance needed for: Not on file 4 Yearly Questionnaire Answer Date Record ed Do you need any assistance w ith obtaining housing, meals, medication, transportation or medical equipment? No 10/29 Assistance needed for: Not on file Sex and Gender Information Value Date Recorded Sex Assigned at Male 06/06/2021 6:51 PM EDT Legal Sex Male 3:36 PM EST Gender Identity Male 06/06/2021 6:51 PM EDT Sexual Orientation Not on file documented as of this encounter Last Filed Vital Signs Vital Sign Reading Time Taken Comments Blood Pressure 170/86 07/02/2024 11:34 AM EDT Pulse 62 07/02/2024 11:34 AM EDT Temperature - - Respiratory Rate 18 07/02/2024 11:34 AM EDT Oxygen Saturation 100% 07/02/2024 11:34 AM EDT Inhaled Oxygen Concentration 100% 07/02/2024 1 1:34 AM EDT Weight 60.6 kg (133 lb 9.6 oz) 07/02/2024 11:34 AM EDT Height 175.3 cm (5' 9 ) 07/02/2024 11:34 AM EDT Body Mass Index 19.73 07/02/2024 11:34 AM EDT documented in this encounter Patient Instructions * Patient Instructions* Beth Crowe DNP - 07/02/2024 12:30 PM EDT Check daily resting BP HR, call Monday a.m. with blood pressures and record On Monday, adjust GDMT as relevant Labs in August with liver labs Check iron labs in August Continue Valsartan and Carvedilol today Continue PT Consider Cardiac Rehab when PT is completed RTC 6 months with labs Beth COATS documented in this encounter Progress Notes * Beth Crowe DNP - 07/02/2024 12:30 PM EDT [facility] Subjective: René Cornejo is a 74 y.o.male with PMH including but not limited to HTN, AI Hepatitis, CMV+, EBV +s/p Octreotide 06/28/22, Abdominal Compartment Syndrome, Aspergillus, GERD, CVA with deficits, Cirrhosis of the Liver, Hepatocellular Carcinoma, Liver Transplant w/ complicated recovery, vent x 3 months with fungal infection, in wheelchair since, status, Encephalopathy, BPH, Kidney Transplant, ICM, STEMI, CAD s/p HR PCI with Impella Support Dr. Webber, 03/2023 PCI Lad and RCA, Episodic Hypotension, History of Present Illness: René Cornejo presented today for a return visit. The last time he was seen here was by Dr. Wilkes 05/23/24 and Prasugrel was stopped, ASA for life. Prior to this he was seen by Dr. Cha 12/13/23. At that time he was on Prasugrel, unable to have Plavix due to Voriconazole) ASA and Rosuvastatin. He was to call with SBP <90 and to go to ER if syncopal. He was following with pulmonary and infectious disease services and was on Voriconazole for Disseminated Aspergillus. He is s/p Liver Transplantand follows with Hepatology. There have been no ER visits or hospitalizations. Today he denies edema, orthopnea, PND or dyspnea. There is no orthostasis, syncope or pre-syncope. No chest pain. No shortness of air, dizziness, falls, syncope, near syncope, swelling; no falls; no palpitations. He reports abdominal pain with hernia - right lateral. States he does not want surgery. Denies other abdominal or cardiac pain. He is able to walk up 5 steps, up and down a ramp with a walker, ramp 60 up and down. He reports heis able to walk about 100-150 feet. He is in PT. He is adherent to his medications. Does not need prn Lasix. The most activity he has been able to do in the last few weeks is walking with PT. He uses a wheelchair and walker at home. No daily weights. Counseled daily weight using his walker to reduce fall risk. Blood pressure at home: [phone]; Taking all different times. Educated on correct process of resting blood pressures. Discussed daily resting blood pressure. Review of Symptoms: The remainder of 12 point review of systems was negative. Review of Cardiac Studies: TTE 08/01/22 LVEF normal, no vegetation, Mild MR, no thrombus. RVSF normal. Possible small mass vs prominent moderator band at the apex.no atrial level shunt. No vegetation TV PV AV.mild thickening ofthe AV. TTE 07/26/22 LVEF 50-55% normal WM. Mild MR. Increased thickness of the septum c/w lipomatous hypertrophy. PASP not be accurately estimated. IVC normal. TTE 02/2023 EF 40-45%, mild diffuse hypokinesis with regional variation, mild hypokinesis of the mid inferior septal wall, G2DD, LA mildly dilated, RVSF normal TTE 03/2023 EF 30-35%, severe diffuse hypokinesis with regional variation, mild Mr, RVSF mildly reduced. MV leaflets normal thickness. Mild thickening. Mild MR. LA mildly dilated. TTE 03/2023 Ef 30-35% moderate diffuse hypokinesis with regional variations. No thrombus. Mild MR, RVSF normal. TTE 03/27/23 EF 30-35%, severe diffuse hypokinesis, SF moderately to severely reduced, severe diffusehypokinesis with regional variations, Akinesis of the inferior wall. Trivial AI, mild MR. RVSF normal.no right to left atrial level shunt. TTE 06/2023 EF 40-45% normal wall thickness. Mild diffuse hypokinesis with regional variations G1DD.RVSF normal. PET 06/20/23 tiny defect mid inferolateral wall. Focal uptake mid inferolateral wall, with additionalmild heterogenous uptake involving the anterior wall. Questionable correlating focal perfusion defect in the inferolateral LV wall; Active myocardial inflammation vs unsuppressed myocardium. No specific uptake findings to suggest avtive sarcoidosis in the remaining body. Left apical nodule with mild uptake no longer appears cavitary. Additional scattered pulmonary nodules. Right Lower lobe tree in bud nodularity appears improved. EM 08/02/[address] isolated PACs PVCs no reported symptoms. Past Medical History: has a past medical history of Aspergillosis [place] (07/2022), Autoimmune hepatitis [place] Benign prostatic hyperplasia, Blindness of right eye, Cancer ([facility] (2020), CHF (congestive heart failure) ([facility]), Coronary artery disease (2013), Diverticulosis (2020), End stage liver disease ([facility]), GERD (gastroesophageal reflux disease) (1968), HCC (hepatocellular carcinoma) ([facility]), Hearing loss (1984), Heart failure ([facility]) (03/2023), High blood pressure (03/2020), High cholesterol,Hypertension, Hypothyroidism, Myocardial infarction ([facility]) (03/2023), Osteoporosis (2022), and Stroke ([facility] Patient Active Problem List Diagnosis Date Noted H/O fracture 04/26/2023 Myocardial infarction ([facility]) 04/26/2023 Shortness of breath 04/26/2023 Chronic systolic heart failure ([facility]) 04/26/2023 Other specified counseling 04/26/2023 History of falling 02/21/2023 assisted (current) use of anticoagulants 02/17/2023 Encounter for therapeutic drug monitoring 02/14/2023 Immunosuppression ([facility]) 02/14/2023 Pleural effusion, not elsewhere classified 01/31/2023 Solitary pulmonary nodule 01/31/2023 Insomnia, unspecified 01/31/2023 Personal history of urinary (tract) infections 01/31/2023 Unspecified fracture of left femur, subsequent encounter for closed fracture with routine healing 01/31/2023 BPH (benign prostatic hyperplasia) 12/07/2022 Benign prostatic hyperplasia 12/07/2022 assisted (current) use of systemic steroids 10/17/2022 emt intermediate current use of aspirin 10/17/2022 assisted current use of systemic steroids 10/17/2022 Hemiplga following cerebral infrc affecting left nondom side ([facility] 10/01/2022 Critical illness myopathy 09/30/2022 Urinary retention 09/26/2022 Retention of urine 09/26/2022 Encounter for fitting and adjustment of urinary device 09/12/2022 Encounter for fitting and adjustment of urinary device 09/12/2022 Dysphagia 09/12/2022 Acute encephalopathy 08/28/2022 Antibiotic causing adverse effect 08/28/2022 Adverse effect of anti-infective 08/28/2022 Disorder of brain 08/28/2022 Brain abscesses 08/22/2022 Intraventricular hemorrhage (CMS-HCC) 08/22/2022 Malignant neoplasm of liver, primary (CMS-HCC) 08/21/2022 Liver transplant recipient (CMS-HCC) 08/09/2022 Coronary artery disease involving [place] coronary artery 08/09/2022 Oropharyngeal dysphagia 08/09/2022 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CMS-HCC) 08/09/2022 Respiratory failure, unspecified, unspecified whether with hypoxia or hypercapnia (CMS-HCC) 06/28/2022 Gastrostomy status ([facility]) 06/28/2022 Respiratory failure ([facility]) 06/28/2022 Malignant neoplasm of liver, primary, unspecified as to type ([facility]) 04/22/2022 Left foot drop 03/28/2022 Hypothyroidism, unspecified 03/20/2022 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[facility]) 03/20/2022 Essential (primary) hypertension 01/06/2022 HCC (hepatocellular carcinoma) ([facility]) 09/29/2021 Hepatocellular carcinoma ([facility]) 09/29/2021 Benign essential hypertension 09/23/2021 Constipation 09/23/2021 Diaphragmatic hernia without obstruction or gangrene 09/23/2021 Gastroesophageal reflux disease without esophagitis 09/23/2021 History of cerebrovascular accident with residual deficit 09/23/2021 Hypothyroidism 09/23/2021 Vitamin B12 deficiency (non anemic) 09/23/2021 Autoimmune hepatitis ([facility]) 09/23/2021 Unspecified cirrhosis of liver ([facility]) 09/23/2021 Diaphragmatic hernia 09/23/2021 History of cerebrovascular accident with residual deficit 09/23/2021 Vitamin B12 deficiency without anemia 09/23/2021 Visual loss 07/21/2021 Visual impairment 07/21/2021 Chronic autoimmune hepatitis ([facility]) 06/08/2021 Unspecified hearing loss, unspecified ear 07/22/2019 Hearing loss 07/22/2019 Athscl heart disease of [place] coronary artery w/o ang pctrs 06/19/2019 Gastro-esophageal reflux disease without esophagitis 06/19/2019 Dvrtclos of intest, part unsp, w/o perf or abscess w/o bleed 06/19/2019 Diverticula of intestine 06/19/2019 Arteriosclerosis of coronary artery 06/19/2019 Neutropenia ([facility] 05/24/2019 Foot drop, left foot 05/24/2019 Unspecified mood (affective) disorder ([facility]) 03/20/2000 Kidney transplant status 03/20/2000 Personal history of malignant neoplasm of liver 03/20/2000 Family History: family history is not on file. Social History: reports that he has never smoked. He has never used smokeless tobacco. He reports that he does not drink alcohol and does not use drugs. Medications: Current med list reviewed, reconciled Home Medications Medication Sig Taking? Last Dose acetaminophen (TYLENOL) 325 MG tablet Take 2 tablets (650 mg total) by mouth every 6 hours as needed. Indications: Pain aspirin 81 MG EC tablet Take 1 tablet (81 mg total) by mouth daily. brimonidine (ALPHAGAN) 0.2 % ophthalmic solution INSTILL 1 DROP INTO RIGHT EYE THREE TIMES DAILY calcium-vitamin D 500 mg-5 mcg (200 unit) per tablet Take 1 tablet by mouth 2 times a day with meals. Indications: osteoporosis carvediloL (COREG) 3.125 MG tablet Take 1 tablet (3.125 mg total) by mouth 2 times a day. cycloSPORINE modified (NEORAL/GENGRAF) 25 MG capsule Take 1 capsule (25 mg total) by mouth 2 times a day. furosemide (LASIX) 20 MG tablet Take 1 tablet (20 mg total) by mouth daily as needed. As needed when you gain 5 lbs or notice swelling levothyroxine (SYNTHROID) 88 MCG tablet Take 1.5 tablets (132 mcg total) by mouth daily. Indications: hypothyroidism mycophenolate (CELLCEPT) 250 mg capsule Take 1 capsule (250 mg total) by mouth 2 times a day. ondansetron (ZOFRAN-ODT) 4 MG disintegrating tablet Dissolve 1 tablet (4 mg total) by mouth every 8hours as needed for Nausea. pantoprazole (PROTONIX) 40 MG tablet Take 1 tablet (40 mg total) by mouth every morning before breakfast. Indications: heartburn polyethylene glycol (GLYCOLAX) 17 gram/dose powder Dissolve 1 capful (17 g total) in 8 oz of liquidand drink by mouth 2 times a day. posaconazole DR (NOXAFIL) 100 mg TbEC Take 3 tablets (300 mg total) by mouth daily with breakfast. prednisoLONE acetate (PRED FORTE) 1 % ophthalmic suspension INSTILL 1 DROP INTO RIGHT EYE 4 TIMES DAILY predniSONE (DELTASONE) 5 MG tablet Take 1 tablet (5 mg total) by mouth daily. rosuvastatin (CRESTOR) 5 MG tablet Take 1 tablet (5 mg total) by mouth daily. sodium zirconium cyclosilicate (LOKELMA) 5 gram PwPk Empty entire contents of one packet (5 g) intoa glass of water with at least 45 mL of water and drink once daily. Stir well and drink immediately. SEPARATE FROM OTHER MEDICATIONS BY 2 HOURS BEFORE AND AFTER. timolol (TIMOPTIC) 0.5 % ophthalmic solution INSTILL 1 DROP INTO RIGHT EYE TWICE DAILY valsartan (DIOVAN) 40 MG tablet Take 1 tablet (40 mg total) by mouth 2 times a day. ALLERGIES: Cefepime and Oxycodone Objective There were no vitals filed for this visit. 2024 1:02 PM 05/07/2024 9:26 AM 05/07/2024 10:49 AM 05/23/2024 1:43 PM 05/27/2024 9:34 AM Vitals with Age-Percentiles Length 175.3 cm Systolic 127 120 92 94 Diastolic 80 70 61 60 Pulse 66 68 61 54 Respiration 16 16 16 Weight 56.246 kg 56.246 kg 56.246 kg 50.349 kg 49.896 kg Visit Report Report Report Report Report Report Report Report Constitutional: alert, no acute distress, well developed, appropriate for age, obese appearing. Skin:Normal turgor, normal color, no rashes, no unusual bruising, warm to touch. Head: Atraumatic, normocephalic. Eyes: EOM intact, pupils equal, no injection, no icterus. Ears/Nose/Throat: External ears normal, hearing normal, external nose normal, tongue normal. Neck: Supple, no adenopathy, no masses, no carotid bruits, no tracheal shift. Chest: No deformities, no apparent respiratory distress. Clear to auscultation bilaterally. Abdomen: Nontender, non distended, no guarding, no masses appreciated. Neuro: Cranial nerves grossly intact, station & gait normal, appropriate mental status. Psych: Affect and mood appropriate, normal interaction, good eye contact. Cardiovascular Neck Veins: Non distended JVP:Eestimated CVP 7 Palpation: Inferiorly and laterally displaced PMI S1 S2: S1, S2 heard Extra Sounds: No gallops, rub or clicks Extremities: No edema ema LE, No cyanosis. +2 Peripheral pulses are equal bilaterally. Laboratory Studies: Lab Results Component Value Date WBC 5.1 05/27/2024 HGB 11.0 (L) 05/27/2024 HCT 32.1 (L) 05/27/2024 MCV 93.3 05/27/2024 Lab Results Component Value Date NA 136 05/27/2024 K 4.4 05/27/2024 CL 102 05/27/2024 CO2 25 05/27/2024 ANIONGAP 9 05/27/2024 GLUCOSE 93 05/27/2024 BUN 29 (H) 05/27/2024 CREATININE 1.22 05/27/2024 EGFR 62 05/27/2024 CALCIUM 9.0 05/27/2024 MG 2.2 06/20/2023 AST 11 (L) 05/27/2024 ALT 10 05/27/2024 ALKPHOS 89 05/27/2024 PROT 5.5 (L) 05/27/2024 PREALBUMIN 24.5 09/26/2022 LIPASE 32 08/24/2022 Lab Results Component Value Date BNP 1,896 (H) 04/20/2023 BNP 2,707 (H) 04/17/2023 BNP 6,355 (H) 04/14/2023 BNP 4,559 (H) 04/11/2023 BNP 5,991 (H) 04/11/2023 Renal Function No results found for: LABCREA , CRCLEARANCE , STARTTIME Lab Results Component Value Date BUN 29 (H) 05/27/2024 BUN 27 (H) 04/17/2024 BUN 27 (H) 01/29/2024 BUN 33 (H) 12/25/2023 BUN 45 (H) 12/13/2023 Lab Results Component Value Date EGFR 62 05/27/2024 EGFR 74 04/17/2024 EGFR >90 01/29/2024 EGFR 72 12/25/2023 EGFR 58 12/13/2023 Anticoagulation and Thrombosis Surveillance Lab Results Component Value Date INR 1.0 2023 INR 1.0 04/19/2023 INR 0.9 04/17/2023 INR 1.0 04/11/2023 INR 1.3 (H) 03/16/2023 PROTIME 13.3 2023 PROTIME 12.8 04/19/2023 PROTIME 12.7 04/17/2023 PROTIME 13.2 04/11/2023 PROTIME 16.5 (H) 03/16/2023 Lab Results Component Value Date LDH 153 04/19/2023 LDH 171 04/18/2023 LDH 209 03/22/2023 LDH 232 08/25/2022 No results found for: LABHEMOF Lipids Lab Results Component Value Date TRIG 183 (H) 05/27/2024 HDL 49 (L) 05/27/2024 CKTOTAL 588 (H) 07/29/2022 Impression: AHA/ACC Stage C NYHA Class III INTERMACS 6 HFrEF, ICM CAD s/p PCI RCA and LAD 03/2023 HLD Episodic Hyptension - none since medications adjusted Hx Disseminated Aspergillosis S/p Liver Transplant Plan: HFrEF ICM LVEF 45% on TTE 06/2023, TTE pending. He is current on Carvedilol, Furosemide, Valsartan Also on Lokelma CAD s/p PCI RCA and LAD no chest pain, currently on ASA and Statin and BB HLD, LDL 34, continue statin Episodic Hypotension, call with SBP < 90, near syncope or >5lbs of weight gain. Aware to go to ER with syncope, Daily HR BP at rest in the a.m. and record Call Monday with the next three days blood pressures for consideration to up- titrate Valsartan, clinic blood pressure is significantly elevated today S/p Liver Transplant, follows with Hepatology. On Cellcept, Prednisone, Cyclosporine Disseminated Aspergillosis per ID Plan Review Echo today Check daily resting BP HR, call Monday a.m. with blood pressures On Monday, adjust GDMT as relevant after review of BP home Labs in August with liver labs Check iron labs Continue Valsartan and Carvedilol today Continue PT Consider Cardiac Rehab when PT is completed Follow-Up: 3 months LASHAY 6 months Beth Crowe DNP Advanced Heart Failure Cardiology Addendum TTE ordered by Dr. Cha resulted today 07/05/24 at 1112 a.m. [employer] called the patient at 1040 to discuss blood pressures, see phone note. Echo result not available /alerted to WORK TICKET DISTRI[employer]OR at that time. TTE reviewed by Dr. Cha. CMRI ordered 07/05 1625 due to concern for Right atrium: Prominent right atrial echodensity, may represent thrombus vs tumor. Recommend cardiac MRI or TAHIR for further evaluation if clinically indicated. There is a prominent Eustachian valve. Last Resulted: 07/05/24 11:12 AM Transthoracic Echocardiogram Patient: René Cornejo Room: echolab Height: 69in MR Number: [id number] : 1950 Weight: 110lb Account: [id number] Gender: M BP: Study Date: 07/02/2024 Age: 74 BSA: 1.54m^2 Referring physician: Interpreting physician: Ann Ding MD PERFORMING [facility] [place]-Ann Ding WEB MANAGER Jovana Wright ORDERING Genet Cha MD ATTENDING Genet Cha MD Procedure:TRANSTHORACIC ECHO (TTE) Order: Accession COMPLETE Number:[id number] Indications: Acute on chronic heart failure with reduced ejection fraction (I50.23). PMH: Coronary artery disease. Risk factors: Hypertension. Study data: Height: 69in. 175.3cm. Weight: 110lb. 49.9kg. Study status: Routine. Procedure: A transthoracic echocardiogram was performed. Image quality was good. Scanning was performed from the parasternal, apical, and subcostal acoustic windows. Transthoracic echocardiogram. M-mode, complete 2D, complete spectral Doppler, and color Doppler. Birthdate: Patient birthdate: 1950. Age: Patient is 74year(s) old. Sex: gender: male. Body mass index: BMI: 16.2kg/m^2. Body surface area: BSA: 1.54m^2. Patient status: Outpatient. Study date: Study date: 07/02/2024. Study time: 10:17 AM. Location: Echo laboratory. Study Conclusions - Left ventricle: The cavity size is normal. Wall thickness is normal. Systolic function is moderately to severely reduced. The estimated ejection fraction is 30-35%. There is diffuse hypokinesis. Grade II diastolic dysfunction. - Aortic valve: Poorly visualized. - Mitral valve: There is mild regurgitation. - Left atrium: The atrium is severely dilated. - Right ventricle: Systolic function is normal. TAPSE: 1.6cm. - Right atrium: Prominent right atrial echodensity, may represent thrombus vs tumor. Recommend cardiac MRI or TAHIR for further evaluation if clinically indicated. There is a prominent Eustachian valve. - Pulmonary arteries: Systolic pressure could not be accurately estimated. - Inferior vena cava: The IVC is normal-sized. Impressions: Right atrial mass. Notified Dr Cha. Cardiac Anatomy Left ventricle: - The cavity size is normal. Wall thickness is normal. Systolic function is moderately to severely reduced. The estimated ejection fraction is 30-35%. There is diffuse hypokinesis. - Grade II diastolic dysfunction. Aorta: Aortic root: The root is normal in size. Aortic valve: - Poorly visualized. Mobility is not restricted. Velocity is within the normal range. There is no stenosis. There is no regurgitation. The mean systolic gradient is 3mm Hg. The peak systolic gradient is 5mm Hg. The LVOT to aortic valve VTI ratio is 0.66. The valve area is 1.9cm^2. The valve area index is 1.21cm^2/m^2. The ratio of LVOT to aortic valve peak velocity is 0.61. The valve area is 1.8cm^2. The valve area index is 1.19cm^2/m^2. The ratio of LVOT to aortic valve mean velocity is 0.62. The valve area is 1.8cm^2. The valve area index is 1.15cm^2/m^2. Mitral valve: - The valve is structurally normal. Mobility is not restricted. Inflow velocity is within the normal range. There is no evidence for stenosis. There is mild regurgitation. The mean diastolic gradient is 1mm Hg. The peak diastolic gradient is 1mm Hg. The valve area is 2.0cm^2. The valve area index is 1.29cm^2/m^2. The valve area index by pressure half-time is 0.88cm^2/m^2. The valve area (LVOT continuity) is 2.0cm^2. The valve area index (LVOT continuity) is 1.29cm^2/m^2. Left atrium: The atrium is severely dilated. Pulmonary artery: - Systolic pressure could not be accurately estimated. Right ventricle: - The cavity size is normal. Systolic function is normal. TAPSE: 1.6cm. Pulmonic valve: - Velocity is within the normal range. There is no evidence for stenosis. There is no regurgitation. Tricuspid valve: - The valve is structurally normal. Inflow velocity is within the normal range. There is no regurgitation. Right atrium: The atrium is normal in size. Prominent right atrial echodensity, may represent thrombus vs tumor. Recommend cardiac MRI or TAHIR for further evaluation if clinically indicated. There is a prominent Eustachian valve. Pericardium: - There is no pericardial effusion. Systemic veins: Inferior vena cava: The IVC is normal-sized. Measurements Left Value Ref 06/20/2023 ventricle GLS, 2D -18.87 % --------- CHERI, LAX (N) 5.2 cm 4.2 - 5.8 4.3 ESD, LAX (N) 4.0 cm 2.5 - 4.0 3.5 CHERI/bsa, LAX (H) 3.4 cm/m^2 2.2 - 3.0 2.6 ESD/bsa, LAX (H) 2.6 cm/m^2 1.3 - 2.1 2.1 FS, LAX chord (L) -52 % 25 - 43 19 ESD major ax, 7.3 cm --------- 6.9 A4C ESD/bsa major 4.8 cm/m^2 --------- 4.2 ax, A4C CHERI minor ax, 7.3 cm --------- 6.9 A4C CHERI/bsa minor 4.8 cm/m^2 --------- 4.2 ax, A4C CHERI major ax, 8.3 cm --------- 7.6 A2C ESD major ax, 8.3 cm --------- A2C CHERI/bsa major 5.4 cm/m^2 --------- 4.6 ax, A2C ESD/bsa major 5.4 cm/m^2 --------- ax, A2C IVS, ED (N) 0.6 cm 0.6 - 1.0 1.0 ESD (N) 4.0 cm 2.5 - 4.0 3.5 ESD/bsa (H) 2.6 cm/m^2 1.3 - 2.1 2.1 FS (H) 3069 % 25 - 43 PW, ED (L) 0.5 cm 0.6 - 1.0 1.2 IVS/PW, ED 1.19 --------- 0.83 EDV (N) 128 ml 62 - 150 83 ESV (H) 71 ml 21 - 61 51 EF (L) -[id number] % 52 - 72 39 SV 71 ml --------- EDV/bsa (H) 83 ml/m^2 34 - 74 51 ESV/bsa (H) 46 ml/m^2 11 - 31 31 SV/bsa 46 ml/m^2 --------- Mass (N) 108 g 96 - 200 Mass/bsa (N) 70 g/m^2 50 - 102 EDV, 1-p A2C (N) 167 ml 59 - 175 75 ESV, 1-p A2C (N) 53 ml 15 - 75 47 EF, 1-p A2C (L) 31 % 48 - 76 63 SV, 1-p A2C -71 ml --------- 32 EDV/bsa, 1-p (H) 109 ml/m^2 31 - 87 46 A2C ESV/bsa, 1-p (N) 34 ml/m^2 9 - 37 29 A2C EDV, 1-p A4C (N) 141 ml 69 - 185 60 ESV, 1-p A4C (N) 75 ml 22 - 78 49 EF, 1-p A4C (N) 46 % 46 - 74 17 SV, 1-p A4C 65 ml --------- 37 EDV/bsa, 1-p (N) 91 ml/m^2 37 - 93 37 A4C ESV/bsa, 1-p (H) 49 ml/m^2 12 - 40 30 A4C SV/bsa, 1-p 42 ml/m^2 --------- 22 A4C EDV, 2-p (H) 160 ml 62 - 150 ESV, 2-p (H) 98 ml 21 - 61 EF, 2-p (L) 31 % 52 - 72 47 SV, 2-p 115 ml --------- 33 EDV/bsa, 2-p (H) 104 ml/m^2 34 - 74 ESV/bsa, 2-p (H) 64 ml/m^2 11 - 31 SV/bsa, 2-p 74.5 ml/m^2 --------- 6.4 E', lat gail, (L) 3.6 cm/sec >=10.0 4.6 TDI E/e', lat (H) 17 <=13 9 gail, TDI A', lat gail, 4.0 cm/sec --------- TDI E'/a', lat 0.89 --------- gail, TDI S', lat gail, 3.0 cm/sec --------- TDI E', med gail, (L) 3.7 cm/sec >=7.0 3.1 TDI E/e', med 16 --------- 13 gail, TDI A', med gail, 7.0 cm/sec --------- TDI E'/a', med 0.53 --------- gail, TDI S', med gail, 5.0 cm/sec --------- TDI E', avg, TDI 3.6 cm/sec --------- 3.8 E/e', avg, (H) 17 <=14 10 TDI LVOT Value Ref 06/20/2023 Diam, S 1.9 cm --------- Area 2.8 cm^2 --------- Peak kim, S 0.66 m/sec --------- 0.73 Mean kim, S 0.49 m/sec --------- Peak grad, S 2 mm Hg --------- 2 Mean grad, S 2 mm Hg --------- SV 39 ml --------- SV/bsa 25 ml/m^2 --------- Right Value Ref 06/20/2023 ventricle CHERI, LAX 3.7 cm --------- 3.0 TAPSE, MM (N) 1.7 cm >=1.7 2.1 S' lateral (N) 11.0 cm/sec >=9.5 7.9 RVOT Value Ref 06/20/2023 Peak v, S 0.67 m/sec --------- Peak grad, S 2 mm Hg --------- Left atrium Value Ref 06/20/2023 LA ID 3.5 cm --------- SI dim, A4C 6.1 cm --------- Area ES, A4C (H) 25 cm^2 <=20 19 Area/bsa ES, 16.12 cm^2/m^2 --------- 11.41 A4C Area ES, A2C 26 cm^2 --------- Area/bsa ES, 16.62 cm^2/m^2 --------- A2C SI dim, A2C 6.5 cm --------- 5.6 SI dim, 6.1 cm --------- shorter Vol, S (H) 84 ml 18 - 58 48 Vol/bsa, S (H) 55 ml/m^2 16 - 34 29 Vol, ES, 1-p (H) 81 ml 18 - 58 58 A4C Vol/bsa, ES, (H) 53 ml/m^2 12 - 37 36 1-p A4C Vol, ES, 1-p (H) 84 ml 18 - 58 33 A2C Vol/bsa, ES, (H) 55 ml/m^2 11 - 43 20 1-p A2C Vol, ES, 2-p 84 ml --------- 48 Vol/bsa, ES, (H) 55 ml/m^2 16 - 34 29 2-p Vol, ES, A/L 88 ml --------- Vol/bsa, ES, (H) 57 ml/m^2 16 - 34 A/L Right atrium Value Ref 06/20/2023 Area, ES, A4C (N) 12 cm^2 10 - 18 Aortic valve Value Ref 06/20/2023 Peak v, S 1.1 m/sec --------- 1.2 Mean v, S 0.79 m/sec --------- 0.88 Mean grad, S 3 mm Hg --------- 3 Peak grad, S 5 mm Hg --------- 6 LVOT/AV, VTI 0.66 --------- 0.58 ratio HERBER, VTI 1.9 cm^2 --------- HERBER/bsa, VTI 1.21 cm^2/m^2 --------- LVOT/AV, 0.61 --------- 0.58 Vpeak ratio HERBER, Vmax 1.8 cm^2 --------- HERBER/bsa, Vmax 1.19 cm^2/m^2 --------- LVOT/AV, 0.62 --------- Vmean ratio HERBER, Vmean 1.8 cm^2 --------- HERBER/bsa, 1.15 cm^2/m^2 --------- Vmean Mitral valve Value Ref 06/20/2023 Mean v, D 0.43 m/sec --------- Peak E 0.6 m/sec --------- 0.39 Peak A 0.59 m/sec --------- 0.55 VTI leaflet 19.7 cm --------- coapt MiV/LVOT VTI 1.4 --------- Decel slope 200.66 cm/s^2 --------- 74.9 Decel time 301 ms --------- PHT 163 ms --------- 164 Mean grad, D 1 mm Hg --------- Peak grad, D 1 mm Hg --------- Peak E/A 1.02 --------- 0.7 ratio MVA 2.0 cm^2 --------- MVA/bsa 1.29 cm^2/m^2 --------- MVA/bsa, PHT 0.88 cm^2/m^2 --------- 0.82 MVA, LVOT 2.0 cm^2 --------- cont MVA/bsa, LVOT 1.29 cm^2/m^2 --------- cont Pulmonic Value Ref 06/20/2023 valve Peak v, S 0.9 m/sec --------- 1.1 Accel time 148 ms --------- 145 Ascending Value Ref 06/20/2023 aorta AAo AP diam, 3.1 cm --------- S AAo AP 2.0 cm/m^2 --------- diam/bsa, S Legend: (L) and (H) carlos values outside specified reference range. (N) balbuena values inside specified reference range. Reviewed and confirmed by Ann Ding MD [id number] Exam Ended: 07/02/24 10:43 AM Last Resulted: 07/05/24 11:12 AM Called to discuss the results with the patient at 1939 p.m. All questions answered. Beth Crowe DNP Advanced Heart Failure Cardiology Addendum Ferritin improved. NT pro BNP improved. Continue same medications. Beth Crowe DNP Advanced Heart Failure Cardiology documented in this encounter Plan of Treatment Upcoming Encounters Date Type Department Care Team (Late st Contact Info) Description 10/10/2024 12:31 PM EDT Hospital Encounter [facility] ENDOSCOPY [address] [place] [id number] Enrike Mims MD [address] [place] [address] 10/10/2024 12:31 PM EDT - 10/10/2024 2:01 PM EDT Surgery [facility] ENDOSCOPY [address] [place] [id number] Enrike Mims MD [address] [place] [address] ERCP Scheduled Orders Name Type Priority Associated Diagnoses Orde r Schedule B Natriuretic Peptide Lab Routine Chronic systolic heart failure ([facility]) 4 Occurrences starting 07/02/2024 until 07/02/2025, 2 completed Scheduled Procedures Name Priority Associated Diagnoses Date/Ti me 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 EDT documented as of this encounter Results * (ABNORMAL) B Natriuretic Peptide (08/30/2024 11:51 AM EDT) BNP 966(H) 0 - 100 pg/mL 08/30/2024 2:45 PM EDT [facility] Comment: BNP may be increased in the presence of sacubitril/valsartan (Entresto). Please interpret accordingly. Plasma 08/30/2024 11:5 1 AM EDT 08/30/2024 2:16 PM EDT Narrative [facility] - 08/30/2024 2:45 PM EDT The presence of high concentrations of biotin may cause falsely lowered BNP results. Biotin interference may be seen if an individual is taking >5 mg biotin per day. Interpret BNP results in the context of the patient's clinical presentation. [facility] LAB BLOOD ORDERABLES Final Res ult [facility] [address] [facility]. [address] * Iron Studies (Iron + TIBC) (08/20/2024 10:26 AM EDT) Iron 59 50 - 212 ug/dL 08/20/2024 11:03 AM EDT [facility] % Iron Saturation 17.3 15.0 - 55.0 % 08/20/2024 11:03 AM EDT [facility] TIBC 342 261 - 462 ug/dL 08/20/2024 11:03 AM EDT [facility] Serum 08/20/2024 10:2 6 AM EDT 08/20/2024 10:26 AM EDT us [facility] LAB BLOOD ORDERABLES Final Res ult Performing Organization Address [facility]/ZIP Co de Phone Number [facility] [address] [facility]. [address] * Ferritin (08/20/2024 10:26 AM EDT) Ferritin 150.2 23.9 - 336.2 ng/mL 08/20/2024 11:17 AM EDT [facility] Serum 08/20/2024 10:2 6 AM EDT 08/20/2024 10:26 AM EDT [facility] LAB BLOOD ORDERABLES Final Res ult [facility] [address] [facility]. [address] * (ABNORMAL) B Natriuretic Peptide (08/20/2024 9:59 AM EDT) BNP 1,064(H) 0 - 100 pg/mL 08/20/2024 12:11 PM EDT [facility] Comment: BNP may be increased in the presence of sacubitril/valsartan (Entresto). Please interpret accordingly. Plasma 08/20/2024 9:59 AM EDT 08/20/2024 11:39 AM EDT Narrative [facility] - 08/20/2024 12:11 PM EDT The presence of high concentrations of biotin may cause falsely lowered BNP results. Biotin interference may be seen if an individual is taking >5 mg biotin per day. Interpret BNP results in the context of the patient's clinical presentation. Beth Crowe DNP LAB BLOOD ORDERABLES Final Res ult Performing Organization Address City/[facility]/ZIP Co de Phone Number [facility] [address] [facility]. [address] * Transferrin Receptor, Soluble (08/20/2024 9:59 AM EDT) Transferrin Receptor 14.9 12.2 - 27.3 nmol/L 08/22/2024 6:20 AM EDT [facility] Serum 08/20/2024 9:59 AM EDT 08/22/2024 7:06 AM EDT Narrative [facility] - 08/22/2024 7:06 AM EDT PERFORMED AT: [facility] [id number] ALUMINA REFINERY OPERATOR: Coral Aguilera MD PHONE: [phone] Beth Crowe [facility] LAB BLOOD ORDERABLES Final Res ult [facility] [address] [facility]. [address] documented in this encounter Visit Diagnoses Diagnosis Iron deficiency- Primary Disorders of iron metabolism Chronic systolic heart failure (CMS-HCC) Chronic systolic heart failure S/P liver transplant (CMS-HCC) Immunosuppression (CMS-HCC) Iron deficiency Disorders of iron metabolism Chronic systolic heart failure (CMS-HCC) Chronic systolic heart failure Biliary stricture Obstruction of bile duct documented in this encounter Care Teams Tableau Developer Relationship Specialty Start Date End Date Carlos Dominguez DO [address], [place] [address] [place] [id number] PCP - General Internal Medicine 04/05/24 Samaria Price MD [address] [place] [address] Hematology/[place] [phone] Medical Oncologist [facility] Medical Oncology 10/20/21 Jasmin Marshall LAY UPS ASSEMBLER [facility] Hematology/[place] [address] Nurse Practitioner [facility] Hematology and Oncology 10/20/21 Megan Tamez, RN Nurse Clinician Medical Oncology 10/20/21 Junie Aggarwal, MARCOS Txp Post Coordinator Shop Estimator 10/14/22 Ese Johnson, PharmD Pharmacist Pharmacist 10/17/22 documented as of this encounter
--- OUTSIDE RECORDS SUMMARY | 2024-08-01 12:23 | XMS_ITS | Encounter Summary ---
Author Organization [facility] Address [address] [place] [address] Care Team Providers Care Agricultural Equipment Test Engineer Name Role Phone Samaria Price MD Unavailable Jasmin Marshall CNP Unavailable [phone] Megan Tamez RN Unavailable Unavailable Junie Aggarwal RN Unavailable Unava ilable Ese Johnson PharmD Unavailable Zaria vailable Carlos Dominguez DO Primary Care Provider [phone] Source Comments This information has been disclosed [...] release of HIV test results or diagnoses. [id number] Reason for Referral * Imaging/Cardiovascular Scan (Routine) - Closed Specialty Diagnoses / Procedures Referred By Arlet arana Referred To Contact Radiology Diagnoses Atrial mass Procedures MRI Cardiac W WO contrast Beth Crowe, JORGE L [address] [place] [address] Phone: tel: fax: Referral ID Status Reason Start Date Expiration Date Visits Re quested Visits Authorized [id number] Closed 07/05/2024 01/01/2025 1 1 Reason for Visit * Auth/Cert (Routine) Specialty Diagnoses / Procedures Referred By Arlet arana Referred To Contact Radiology [facility] MRI [address] [place] [address] Phone: tel: Referral ID Status Reason Start Date Expiration Date Visits Re quested Visits Authorized [id number] 1 1 Encounter Details Date Type Department Care Team (Latest Contact Info) Description 08/01/2024 12:23 PM EDT - 08/01/2024 11:59 PM EDT Hospital Encounter [facility] MRI [address] [place] [phone] Genet Cha MD [address] [place] [phone] Atrial mass Discharge Disposition: Home or Self Care WITHOUT Home Care Services Social History Tobacco Use Types Packs/Day Years Used Date Smoking Tobacco: Never Smokeless Tobacco: Never Alcohol Use Standard Drinks/Week Comments Never 0 (1 standard drink = 0.6 oz pur e alcohol) Utilities Answer Date Recorded In the past 12 months has Managed Objects, gas, oil, or water Pcsso threatened to shut off services in your [...] place to sleep or slept in a correction (including now)? No 04/11/2023 Yearly Questionnaire Answer [...] 3.125 MG tabletIndications:L eft Ventricular Dysfunction following OK Take 1 tablet (3.125 mg total) by mouth 2 times a day. 180 tablet 3 4 cycloSPORINE modified (NEORAL/GENGRAF) 25 MG capsuleIndications: S/P liver transplant ([facility]),Immunosup pressive management encounter [place] Take 1 capsule (25 mg total) by mouth 2 times a day. 60 capsule 5 08/21/2024 10:21 AM EDT 5 furosemide (LASIX) 20 MG tabletIndications:A cute on chronic HFrEF (heart failure with reduced ejection fraction) [place] Take 1 tablet (20 mg total) by [...] 2 times a day. 60 capsule 5 08/21/2024 10:21 AM EDT 5 ondansetron (ZOFRAN-ODT) 4 MG disintegrating [...] total) by mouth daily. 30 tablet 5 08/21/2024 10:21 AM EDT 5 rosuvastatin (CRESTOR) 5 MG tabletIndications:C oronary artery disease involving [place] coronary artery of [place] heart without angina pectoris,Chest pain, unspecified type,Acute on chronic HFrEF (heart failure with reduced ejection fraction) ([facility]) Take 1 tablet (5 mg total) by [...] Description 10/10/2024 12:31 PM EDT Hospital Encounter [facility] ENDOSCOPY [address] [place] [phone] Enrike Mims MD [address] [place] [address] 10/10/2024 12:31 PM EDT - 10/10/2024 2:01 PM EDT Surgery [facility] ENDOSCOPY [address] [place] [phone] Enrike Mims MD [address] [place] [address] ERCP Scheduled Procedures Name Priority [...] chest CT. Thank you for referring to [facility] Cardiac Magnetic Resonance Imaging. Report Verified by: Goyo Campos MD at 08/08/2024 7:58 AM EDT Narrative 08/08/2024 7:58 AM EDT Exam: MRI CARDIAC W AND WO CONTRAST Comparison: CT chest dated 05/09/2023 Contrast: 15 mL of GADOBUTROL 1 MMOL/ML INTRAVENOUS SYRINGE ([facility]) administered intravenously Indication: atrial mass; Atrial mass [...] fat saturation Scanner Giana: 1.5T Scanner Vendor: [employer] Exam Quality: excellent Findings: QUALITATIVE IMPRESSIONS: Left [...] mL of GADOBUTROL 1 MMOL/ML INTRAVENOUS SYRINGE ([facility])administered intravenously Indication: atrial mass; Atrial mass Patient [...] fat saturation Scanner Giana: 1.5T Scanner Vendor: [employer] Exam Quality: excellent Findings: QUALITATIVE IMPRESSIONS: Left [...] chest CT. Thank you for referring to [facility] Cardiac Magnetic Resonance Imaging. Report Verified by: Goyo Campos MD at 08/08/2024 7:58 AM EDT Genet Cha MD IMG MRI ORDERABLES Final Res ult * POC Sample Type (08/01/2024 1:34 PM EDT) POC Sample Type Unspecified 08/01/2024 1:41 PM EDT [facility] Blood, Arterial 08/01/2024 1 :34 PM EDT 08/01/2024 1:41 PM EDT Genet Cha MD POINT OF CARE TEST ORDERABLE S Final Result [facility] [address] * POC eGFR (08/01/2024 1:34 PM EDT) [facility] POC [id number] 08/01/2024 1:41 PM EDT [facility] Comment:As of 2021, the estimated GFR [...] MD LAB BLOOD ORDERABLES Final R esult [facility] [address] [facility] * POC creatinine (08/01/2024 1:34 PM EDT) [facility] POC Creatinine 1.06 0.60 - 1.30 mg/dL 08/01/2024 1:41 PM EDT [facility] Blood, Arterial 08/01/2024 1 :34 PM EDT 08/01/2024 1:41 PM EDT Genet Cha MD POINT OF CARE TEST ORDERABLE S Final Result [facility] [address] [facility] * (ABNORMAL) POC Hemoglobin (08/01/2024 1:34 PM EDT) POC Hemoglobin 12.7(L) 14.0 - 18.0 g/dL 08/01/2024 1:41 PM EDT [facility] Blood, Arterial 08/01/2024 1 :34 PM EDT 08/01/2024 1:41 PM EDT Genet Cha MD POINT OF CARE TEST ORDERABLE S Final Result [facility] [address] [facility] * (ABNORMAL) POC hematocrit (08/01/2024 1:34 PM EDT) POC Hematocrit 37.0(L) 40 - 52 % 08/01/2024 1:41 PM EDT [facility] Blood, Arterial 08/01/2024 1 :34 PM EDT 08/01/2024 1:41 PM EDT Genet Cha MD POINT OF CARE TEST ORDERABLE S Final Result [facility] [address] [facility] documented in this encounter Visit Diagnoses [...] mLs documented in this encounter Care Teams Agricultural Equipment Test Engineer Relationship Specialty Start Date End Date Carlos Dominguez DO [address], [place] [address] [place] [id number] PCP - General Internal Medicine 04/05/24 Samaria Price MD [facility] Hematology/[place] [phone] Medical Oncologist [facility] Medical Oncology 10/20/21 Jasmin Marshall, SERVER ENGINEER [facility] Hematology/[place] [phone] Nurse Practitioner [facility] Hematology and Oncology 10/20/21 Megan Tamez, RN Nurse Clinician Medical Oncology 10/20/21 Junie Aggarwal, RN Txp Post Coordinator [employer] Science Teacher 10/14/22 Ese Johnson, PharmD Pharmacist Pharmacist 10/17/22 documented as of this encounter
--- OUTSIDE RECORDS SUMMARY | 2024-08-20 10:14 | XMS_ITS | Encounter Summary ---
Author Organization [facility] Address [address] [place] [address] Care Team Providers Care Project Surveyor Name Role Phone Samaria Price MD Unavailable Jasmin Marshall CNP Unavailable [phone] Megan Tamez RN Unavailable Unavailable Junie Aggarwal RN Unavailable Unava ilable Ese Johnson PharmD Unavailable Zaria vailable Carlos Dominguez DO Primary Care Provider [phone] Source Comments This information has been disclosed [...] release of HIV test results or diagnoses. [id number] Health Encounter Details Date Type Department Care Team (Latest Contact Info) Description 08/20/2024 10:14 AM EDT - 08/20/2024 11:59 PM EDT Hospital Encounter [facility] Radiology [address] [place] [phone] Kolton Martinez MD [address] [place] [address] Liver replaced by transplant ([facility]); Immunosuppressive management encounter following liver transplant ([facility]); Encounter for therapeutic drug monitoring; Osteoporosis, unspecified [...] the past 12 months has th e [employer], gas, oil, or water [employer] threatened to shut off services in your [...] place to sleep or slept in a alf (including now)? No 04/11/2023 Yearly Questionnaire Answer [...] 3.125 MG tabletIndications:L eft Ventricular Dysfunction following [place] Take 1 tablet (3.125 mg total) by [...] HFrEF (heart failure with reduced ejection fraction) ([facility]) Take 1 tablet (20 mg [...] 5 MG tabletIndications:C oronary artery disease involving [place] coronary artery of [place] heart without angina pectoris,Chest pain, unspecified type,Acute on chronic HFrEF (heart failure with reduced ejection fraction) ([facility]) Take 1 tablet (5 mg total) by [...] Description 10/10/2024 12:31 PM EDT Hospital Encounter [facility] ENDOSCOPY [address] [place] [phone] Enrike Mims MD [address] [place] [phone] 10/10/2024 12:31 PM EDT - 10/10/2024 2:01 PM EDT Surgery [facility] ENDOSCOPY [address] [place] [phone] Enrike Mims MD [address] [place] [address] ERCP Scheduled Procedures Name Priority Associated Diagnoses Date/Ti me 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 EDT documented as of this encounter Procedures Procedure Name Priority Date/Time Associated Diagnosis Comments DXA BONE DENSITY AXIAL SKELETON Routine 08/20/2024 1:03 PM EDT Liver replaced by transplant ([facility]) Immunosuppressive management encounter following liver transplant ([facility]) Encounter for therapeutic drug monitoring [...] AXIAL SKELETON INDICATION: Liver replaced by transplant ([facility]); Immunosuppressive management encounter following liver transplant ([facility]); Immunosuppressive management encounter following liver transplant ([facility]); Encounter for therapeutic drug monitoring; Osteoporosis, unspecified osteoporosis type, unspecified pathological fracture presence; History of steroid therapy TECHNICAL: Bone mineral density analysis was performed on a [employer] scanner. ARTIFACTS: There is lumbar spondylosis which [...] mineral density analysis was performed on a [employer]DX[employer]anner. ARTIFACTS: There is lumbar spondylosis which [...] Visit Diagnoses Diagnosis Liver replaced by transplant ([facility]) Liver replaced by transplant Immunosuppressive management encounter following liver transplant ([facility]) Encounter for therapeutic drug monitoring Osteoporosis, unspecified osteoporosis type, unspecified pathological fracture presence History of steroid therapy Personal history of systemic steroid therapy Biliary stricture Obstruction of bile duct documented in this encounter Care Teams Project Surveyor Relationship Specialty Start Date End Date Carlos Dominguez DO [address], [place] [address] [place] [address] PCP - General Internal Medicine 04/05/24 Samaria Price MD [facility] Hematology/[place] [phone] Medical Oncologist [facility] Medical Oncology 10/20/21 Jasmin Marshall CNP [facility] Hematology/[place] [phone] Nurse Practitioner [facility] Hematology and Oncology 10/20/21 Megan Tamez, RN Nurse Clinician Medical Oncology 10/20/21 Junie Aggarwal, RN Txp Post Coordinator Family Service Counselor 10/14/22 Ese Johnson, PharmD Pharmacist Pharmacist 10/17/22 documented as of this encounter
--- OUTSIDE RECORDS SUMMARY | 2024-08-20 13:00 | XMS_ITS | Encounter Summary ---
Author Organization [facility] Address [address] [place] [address] Care Team Providers Care Streetcar Starter Name Role Phone Samaria Price MD Unavailable Jasmin Marshall CNP Unavailable [phone] Megan Tamez RN Unavailable Unavailable Junie Aggarwal RN Unavailable Unava ilable Ese Johnson PharmD Unavailable Zaria vailable Carlos Dominguez DO Primary Care Provider [phone] Source Comments This information has been disclosed [...] release of HIV test results or diagnoses. [id number] Reason for Visit * Reason Comments Labs Only Encounter Details Date Type Department Care Team (Late Contact Info) Description 08/20/2024 1:00 PM EDT Specimen [facility] Outreach Lab [address] [place] [phone] Kolton Martinez MD [address] [place] [address] S/P liver transplant ([facility]); Immunosuppression ([facility]); Iron deficiency; Chronic systolic heart failure ([facility]) Social History Tobacco Use Types Packs/Day Years Used Date Smoking Tobacco: Never Smokeless Tobacco: Never Alcohol Use Standard Drinks/Week Comments Never 0 (1 standard drink = 0.6 oz pur e alcohol) Utilities Answer Date Recorded In the past 12 months has th e [employer], oil, or water [employer] threatened to shut off services in your [...] place to sleep or slept in a jail (including now)? No 04/11/2023 Yearly Questionnaire Answer [...] Encounter [facility] ENDOSCOPY [address] [place] [address] Enrike Mims MD [address] [place] [phone] 10/10/2024 12:31 PM EDT - 10/10/2024 2:01 PM EDT Surgery [facility] ENDOSCOPY [address] [place] [address] Enrike Mims MD [address] [place] [phone] ERCP Scheduled Procedures Name Priority Associated Diagnoses Date/Ti me 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 EDT documented as of this encounter Procedures Procedure Name Priority Date/Time Associated Diagnosis Comments IRON STUDIES Routine 08/20/2024 10:26 AM EDT Iron deficiency CYCLOSPORINE LEVEL Routine 08/20/2024 10 :26 AM EDT S/P liver transplant (CMS-HCC) Immunosuppression ([facility]) FERRITIN Routine 08/20/2024 10:26 AM EDT Iron [...] - 212 ug/dL 08/20/2024 11:03 AM EDT [facility] % Iron Saturation 17.3 15.0 - 55.0 % 08/20/2024 11:03 AM EDT [facility] TIBC 342 261 - 462 ug/dL 08/20/2024 11:03 AM EDT [facility] Serum 08/20/2024 10:2 6 AM EDT 08/20/2024 10:26 AM EDT us Beth Crowe [facility] BLOOD ORDERABLES Final Res ult [facility] [address] [place] [address], [facility] * Ferritin (08/20/2024 10:26 AM EDT) Ferritin 150.2 23.9 - 336.2 ng/mL 08/20/2024 11:17 AM EDT [facility] Serum 08/20/2024 10:2 6 AM EDT 08/20/2024 10:26 AM EDT Beth Crowe DNP LAB BLOOD ORDERABLES Final Res ult Performing Organization Address City/[facility]/ZIP Co de Phone Number [facility] [id number] [facility]. [address] * Cyclosporine level (08/20/2024 10:26 AM EDT) Cyclosporine, LC/MS 146.2 100.0 - 350.0 ng/mL 08/20/2024 1:46 PM EDT [facility] Comment:Performed via liquid chromatography tandem mass spectrometry. Detection limit: 20 ng/mL. Individual target concentrations may vary due to target organ and time after transplant. This test has been developed and its performance characteristics determined by [facility] which is certified under the Clinical Laboratory [...] AM EDT 08/20/2024 10:26 AM EDT Narrative [facility] - 08/20/2024 1:46 PM EDT Standing liver transplant labs. Please fax results to [phone]. Call critical results to [phone]. Kolton Martinez MD LAB BLOOD ORDERABLES Kalli l Result Performing Organization Address City/[facility]/ZIP Co de Phone Number [facility] [address] [facility]. [address] * (ABNORMAL) B Natriuretic Peptide (08/20/2024 9:59 AM EDT) BNP 1,064(H) 0 - 100 pg/mL 08/20/2024 12:11 PM EDT [facility] Comment: BNP may be increased in the presence of sacubitril/valsartan (Entresto). Please interpret accordingly. Plasma 08/20/2024 9:59 AM EDT 08/20/2024 11:39 AM EDT [facility] - 08/20/2024 12:11 PM EDT The presence of high concentrations of biotin may cause falsely lowered BNP results. Biotin interference may be seen if an individual is taking >5 mg biotin per day. Interpret BNP results in the context of the patient's clinical presentation. Beth Croew [facility] BLOOD ORDERABLES Final Res ult Performing Organization Address [facility]/ZIP Co de Phone Number [facility] [address] [facility]. [address] * Transferrin Receptor, Soluble (08/20/2024 9:59 AM EDT) Transferrin Receptor 14.9 12.2 - 27.3 nmol/L 08/22/2024 6:20 AM EDT [facility] Serum 08/20/2024 9:59 AM EDT 08/22/2024 7:06 AM EDT [facility] - 08/22/2024 7:06 AM EDT PERFORMED AT: [address] [id number] ROLL SCALE MAN: Coral Aguilera MD PHONE: [phone] [facility] LAB BLOOD ORDERABLES Final Res ult Performing Organization Address City/[facility]/ZIP Co de Phone Number [facility] [address] [facility]. [address] * (ABNORMAL) Hepatic Function Panel (08/20/2024 9:59 AM EDT) Total Bilirubin 0.8 0.0 - 1.5 mg/dL 08/20/2024 10:27 AM EDT [facility] Bilirubin, Direct 0.4 0.0 - 0.4 mg/dL 08/20/2024 10:27 AM EDT [facility] AST 10(L) 13 - 39 U/L 08/20/2024 10:27 AM EDT [facility] ALT 9 7 - 52 U/L 08/20/2024 10:27 AM EDT [facility] Alkaline Phosphatase 96 36 - 125 U/L 08/20/2024 10:27 AM EDT [facility] Total Protein 6.2(L) 6.4 - 8.9 g/dL 08/20/2024 10:27 AM EDT [facility] Albumin 3.8 3.5 - 5.7 g/dL 08/20/2024 10:27 AM EDT [facility] Bilirubin, Indirect 0.4 0.0 - 1.1 mg/dL 08/20/2024 10:27 AM EDT [facility] Plasma 08/20/2024 9:59 AM EDT 08/20/2024 10:08 AM EDT Narrative [facility] - 08/20/2024 10:27 AM EDT Standing liver transplant labs. Please fax results to [phone]. Call critical results to [phone]. Kolton Martinez MD LAB BLOOD ORDERABLES Kalli grider Result [facility] [address] [place] [address], [facility] * (ABNORMAL) Renal Function Panel w/EGFR (08/20/2024 9:59 AM EDT) Sodium 137 133 - 146 mmol/L 08/20/2024 10:27 AM EDT [facility] Potassium 3.7 3.5 - 5.3 mmol/L 08/20/2024 10:27 AM EDT [facility] Chloride 103 98 - 110 mmol/L 08/20/2024 10:27 AM EDT [facility] CO2 26 21 - 33 mmol/L 08/20/2024 10:27 AM EDT [facility] Anion Gap 8 3 - 16 mmol/L 08/20/2024 10:27 AM EDT [facility] BUN 30(H) 7 - 25 mg/dL 08/20/2024 10:27 AM EDT [facility] Creatinine 1.40(H) 0.60 - 1.30 mg/dL 08/20/2024 10:27 AM EDT [facility] Glucose 108(H) 70 - 100 mg/dL 08/20/2024 10:27 AM EDT [facility] Calcium 9.3 8.6 - 10.3 mg/dL 08/20/2024 10:27 AM EDT [facility] Phosphorus 3.1 2.1 - 4.5 mg/dL 08/20/2024 10:27 AM EDT [facility] Albumin 3.8 3.5 - 5.7 g/dL 08/20/2024 10:27 AM EDT [facility] Osmolality, Calculated 291 278 - 305 mOsm/kg 08/20/2024 10:27 AM EDT [facility] EGFR 52 08/20/2024 10:27 AM EDT [facility] Comment:As of 2021, the [...] Reference: Amos C, Desiree M, Jarrod DC, Elui ND, Suzy CA, Chance LA, et al. A Unifying Approach for GFR Estimation: Recommendations of the NKF-ASN Task Force on Reassessing the inclusion of Race in Diagnosing Kidney Disease. Am J Kidney Dis. 2020. Plasma 08/20/2024 9:59 AM EDT 08/20/2024 10:08 AM EDT Narrative [facility] - 08/20/2024 10:27 AM EDT Standing liver transplant labs. Please fax results to [phone]. Call critical results to [phone]. Kolton Martinez MD LAB BLOOD ORDERABLES Kalli grider Result [facility] [address] * (ABNORMAL) CBC (08/20/2024 9:59 AM EDT) WBC 9.1 3.8 - 10.8 10E3/uL 08/20/2024 10:11 AM EDT [facility] RBC 3.89(L) 4.20 - 5.80 10E6/uL 08/20/2024 10:11 AM EDT [facility] Hemoglobin 12.3(L) 13.2 - 17.1 g/dL 08/20/2024 10:11 AM EDT [facility] Hematocrit 36.1(L) 38.5 - 50.0 % 08/20/2024 10:11 AM EDT [facility] MCV 92.9 80.0 - 100.0 fL 08/20/2024 10:11 AM EDT [facility] MCH 31.8 27.0 - 33.0 pg 08/20/2024 10:11 AM EDT [facility] MCHC 34.2 32.0 - 36.0 g/dL 08/20/2024 10:11 AM EDT [facility] RDW 14.9 11.0 - 15.0 % 08/20/2024 10:11 AM EDT [facility] Platelets 384 140 - 400 10E3/uL 08/20/2024 10:11 AM EDT [facility] MPV 8.2 7.5 - 11.5 fL 08/20/2024 10:11 AM EDT [facility] Whole Blood 08/20/2024 9:59 AM EDT 08/20/2024 10:08 AM EDT Narrative [facility] - 08/20/2024 10:11 AM EDT Standing liver transplant labs. Please fax results to [phone]. Call critical results to [phone]. us Kolton Martinez MD LAB BLOOD ORDERABLES Kalli l Result [facility] [address] [place] [address], [facility] * Differential (08/20/2024 9:59 AM EDT) Neutrophils Relative 69.5 40.0 - 80.0 % 08/20/2024 10:11 AM EDT [facility] Lymphocytes Relative 21.4 15.0 - 45.0 % 08/20/2024 10:11 AM EDT [facility] Monocytes Relative 7.4 0.0 - 12.0 % 08/20/2024 10:11 AM EDT [facility] Eosinophils Relative 1.1 0.0 - 8.0 % 08/20/2024 10:11 AM EDT [facility] Basophils Relative 0.6 0.0 - 1.0 % 08/20/2024 10:11 AM EDT [facility] nRBC 0 0 - 0 /100 WBC 08/20/2024 10:11 AM EDT [facility] Neutrophils Absolute 6,325 1,520 - 8,640 /uL 08/20/2024 10:11 AM EDT [facility] Lymphocytes Absolute 1,947 570 - 4,860 /uL 08/20/2024 10:11 AM EDT [facility] Monocytes Absolute 673 0 - 1,296 /uL 08/20/2024 10:11 AM EDT [facility] Eosinophils Absolute 100 0 - 864 /uL 08/20/2024 10:11 AM EDT [facility] Basophils Absolute 55 0 - 108 /uL 08/20/2024 10:11 AM EDT [facility] Whole Blood 08/20/2024 9:59 AM EDT 08/20/2024 10:08 AM EDT Narrative [facility] - 08/20/2024 10:11 AM EDT Standing liver transplant labs. Please fax results to [phone]. Call critical results to [phone]. Kolton Martinez MD LAB BLOOD ORDERABLES Kalli grider Result [facility] [address] documented in this encounter Visit Diagnoses Diagnosis S/P liver transplant (CMS-HCC) Immunosuppression ([facility]) Iron deficiency Disorders of iron metabolism Chronic systolic heart failure (CMS-HCC) Chronic systolic heart failure Biliary stricture Obstruction of bile duct documented in this encounter Care Teams Streetcar Starter Relationship Specialty Start Date End Date AlbertoCarlos nieves DO [address] [address] [place] [address] PCP - General Internal Medicine 04/05/24 Samaria Price MD [facility]8 [facility] Hematology/[place] [phone] Medical Oncologist [facility] Medical Oncology 10/20/21 Jasmin Marshall INSIDE [employer] SALES [facility]8 [facility] Hematology/[place] [phone] Nurse Practitioner [facility] Hematology and Oncology 10/20/21 Megan Tamez, MARCOS Nurse Clinician Medical Oncology 10/20/21 Junie Aggarwal, MARCOS Txp Post Coordinator Occasional Babysitter 10/14/22 Ese Johnson, NahunD Pharmacist Pharmacist 10/17/22 documented as of this encounter
--- OUTSIDE RECORDS SUMMARY | 2024-08-30 13:00 | XMS_ITS | Encounter Summary ---
Author Organization [facility] Address [address] [place] [address] Care Team Providers Care Blind Escort Name Role Phone Samaria Price MD Unavailable Jasmin Marshall CNP Unavailable [phone] Megan Tamez RN Unavailable Unavailable Junie Aggarwal RN Unavailable Unava ilable Ese Johnson PharmD Unavailable Zaria vailable Carlos Dominguez DO Primary Care Provider [phone] Source Comments This information has been disclosed [...] release of HIV test results or diagnoses. [id number] Health Encounter Details Date Type Department Care Team (Late st Contact Info) Description 08/30/2024 1:00 PM EDT Office Visit [facility]mology at [address] [place] [phone] Carlos Young MD [address] [place] [address] Social History Tobacco Use Types Packs/Day Years [...] place to sleep or slept in a long term (including now)? No 04/11/2023 Yearly Questionnaire Answer Date Record ed Do you need any assistance w ith obtaining housing, meals, medication, transportation or medical equipment? No 10/29 Assistance needed for: Not on file Yearly Questionnaire Answer Date Record ed Do [...] Sign Reading Time Taken Comments Blood Pressure 114/71 08/30/2024 11:55 AM EDT Pulse 119 08/30/2024 11:55 AM EDT Temperature - - Respiratory Rate - - Oxygen Saturation - - Inhaled Oxygen Concentration - - Weight - - Height 175.3 cm (5' 9 ) 08/30/2024 11:55 AM EDT Body Mass Index - - documented in this encounter Patient Instructions * Patient Instructions* Carlos Young MD - 08/30/2024 1:00 PM EDT RTC 6 months V/IOP/OCT/color photos documented in this encounter Progress Notes * Carlos Young MD - 08/30/2024 1:00 PM EDT OPHTHALMOLOGY CLINIC NOTE René is a 74 y.o. male originally seen in consultation for vision changes and imaging with right globe abnormality 08/01/22. 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 Vitreous culture NGTD. Interval history: patient here to re-establish care, says that right eye is comfortable. No changesto left eye. 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, brain and eye Autoimmune hepatitis ([facility]) Benign prostatic hyperplasia Blindness of right eye Cancer ([facility]) 2020 Liver transplant CHF (congestive heart failure) ([facility]) Coronary artery disease 2014 Diverticulosis 2020 End stage liver disease ([facility]) s/p OLT GERD (gastroesophageal reflux disease) 1969 Caused by prednisone for my liver HCC (hepatocellular carcinoma) ([facility]) Hearing loss 1984 connected some loss Heart failure ([facility]) 03/2023 Treated with meds High blood pressure 03/2020 Treated with medication High cholesterol Hypertension Hypothyroidism Myocardial infarction ([facility]) 03/2023 Osteoporosis 2022 Taking meds Stroke ([facility]) Past Ocular History: 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 Soc Hx: Social History Tobacco Use Smoking status: Never Smokeless tobacco: Never Vaping Use Vaping status: Never Used Substance Use Topics Alcohol use: Never Drug use: Never Family History: No known family ocular history Ocular medications: none Allergies: Allergies Allergen Reactions Cefepime Other (See Comments) Encephalopathy with myoclonus Other Reaction(s): Other (See Comments) Oxycodone Itching Delirious Ophthalmologic Examination: Base Eye Exam Visual Acuity (Snellen - Linear) Right Left Dist cc NLP 20/25 -2 Correction: Glasses Tonometry (Applanation, 12:42 PM) Right Left Pressure 4 10 Gonioscopy Right Left Temporal grade III Nasal grade III Superior grade III Inferior grade III Pupils Dark Light Shape React APD Right 2 2 Round Nonreactive None Left 3 2.5 Round 1+ None Neuro/Psych Oriented x3: Yes Dilation Both eyes: 2.5% Phenylephrine @ 12:43 PM Slit Lamp and Fundus Exam External Exam Right Left External Normal Normal Slit Lamp Exam Right Left Lids/Lashes Normal Normal Conjunctiva/Sclera Normal Normal Cornea Arcus. trace PEE scattered. arcus Anterior Chamber Collapsed AC, iridocorneal apposition Deep and clear Iris 360 synechiae + NV. Pupillary membrane. Iridocorneal apposition. LPI closed (no remnants visible), and other scattered TIDs Normal Lens 2+ NS 2+ NS Fundus Exam Right Left Posterior Vitreous clear Disc pink, sharp margins C/D Ratio 0.3 Macula flat Vessels attenuated Periphery attached Refraction Final Rx Sphere Cylinder Dist VA Add Right Balance Sphere No light perception Left +0.50 Sphere 20/25 +2.50 Polycarbonate lenses - patient is monocular Imaging: MRI head w/ (07/28/22): 1. Multiple septic emboli and small abscesses. 2. Multiple enhancing subacute infarcts in the left basal ganglia and left cerebellar hemisphere. 3. Right frontal leptomeningeal enhancement, may be due to leptomeningitis. 4. Ventriculitis. 5. Right globe abnormal signal, concerning for detachment/hemorrhage. B-scan (11/24/22) OD: complete funnel RD, layered vitreous debris inferiorly. 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 03/06/23: ongoing right eye pain that fluctuates and headache. IOP 23. Completely collapsed AC withclosed LPI. Do not feel that additional IOP lowering/LPI will improve eye pain. Discussed that repeat LPI will unlikely be successful and will very well close again. Given NLP, ongoing pain, not likely from IOP. Discussed enuc/eviscration, patient concered he might be poor surgical candidate (CAD with multiple stents, etc.). 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 BAL + pseudomonas and aspergillus. Blood cultures NGTD - s/p vitreous tap + intravitreal vanc, ceftazidime, voriconazole (08/01/22) - vitreous culture (08/01/22) NGTD - Now course complicated by total RD with posterior synechiae and resulting narrow angle with ocular HTN. Managed medically, patient not interested in surgery at this time. - s/p LPI OD 11/17/22. - 02/15/23: Remains NLP. No evidence of infection, defect, significant change in exam from prior description. Only mild PEE. Pressure normal. # H/o CWS OS # RNFL heme OS PMH significant for CMV and EBV positivity and BAL positive for pseudomonas and aspergillosis. - 10/06/22: no retinal lesions noted. - 11/17/22: RNFL Heme. Pt states he has BP fluctuations. Will monitor - 08/30/24: DFE OS reassuring (gonio open but only used phenyl), heme resolved, IOP wnl - continue to watch closely for now RTC General 6 mos V/Optos/OCT Please contact ophthalmology with any questions, concerns, or new/worsening symptoms Dr. Espinosa has reviewed the history and examined the patient and agrees with the assessment and jonnathan documented above. Signed: Carlos Young MD Ophthalmology Resident 08/30/2024 * Winter Espinosa MD - 08/30/2024 1:00 PM EDT I reviewed the history with the patient René Cornejo, and I examined and discussed the patient on 08/30/[address] Carlos Young, a resident. I agree with the documented history, exam, impression, andplan of Dr. Carlos Young, a resident. documented in this encounter Plan of Treatment Upcoming Encounters Date Type Department Care Team (Late st Contact Info) Description 10/10/2024 12:31 PM EDT Hospital Encounter [facility] ENDOSCOPY [address] [place] [phone] Enrike Mims MD [address] [place] [phone] 10/10/2024 12:31 PM EDT - 10/10/2024 2:01 PM EDT Surgery [facility] ENDOSCOPY [address] [place] [phone] Enrike Mims MD [address] [place] [phone] ERCP Scheduled Procedures Name Priority Associated Diagnoses Date/Ti me 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 EDT documented as of this encounter Procedures Procedure Name Priority Date/Time Associated Diagnosis Comments COLOR FUNDUS PHOTOGRAPHY - OU - BOTH EYES Routine 08/30/2024 12:16 PM EDT Anatomical narrow angle OCT RETINA/MACULA-BOTH EYES Routine 08/30/2024 12:10 PM EDT Anatomical narrow angle documented in this encounter Results * Color Fundus Photography - OU - Both Eyes (08/30/2024 12:16 PM EDT) 08/30/2024 Narrative [facility] - 08/30/2024 3:17 PM EDT [Fundus exam] us Carlos Young MD OPHTHALMOLOGY SERVICES ORDERABLE S Final Result Performing Organization Address [facility] de Phone Number [facility] * OCT Retina/Macula- Both Eyes (08/30/2024 12:10 PM EDT) 08/30/2024 Narrative [facility] - 08/30/2024 3:17 PM EDT Date of Test/Procedure Date: 08/30/2024. 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 Obstruction of bile duct documented in this encounter Care Teams Blind Escort Relationship Specialty Start Date End Date Carlos Dominguez DO [address], [place] [address] [place] [phone] PCP - General Internal Medicine 04/05/24 Samaria Price MD [facility]8 [facility] Hematology/[place] [phone] Medical Oncologist [facility] Medical Oncology 10/20/21 Jasmin Marshall, RN TELEMETRY [address] [facility] Hematology/[place] [phone] Nurse Practitioner [facility] Hematology and Oncology 10/20/21 Megan Tamez, RN Nurse Clinician Medical Oncology 10/20/21 Junie Aggarwal, MARCOS Txp Post Coordinator Saw Repairer 10/14/22 Ese Johnson, NahunD Pharmacist Pharmacist 10/17/22 documented as of this encounter
[2024-09-05 16:53] LABS: Microscopic, Urine URINE MICROSCOPIC (MICROSCOPIC)
[2024-09-05 17:28] LABS: Bilirubin,Urine Negative (Negative); Blood, Urine Negative (Negative); Color,Urine YELLOW (Yellow); Glucose,Urine (UA) Negative (Negative); Ketones,Urine Negative (Negative); Leukocyte Esterase,Urine 2+ (Negative); Nitrate,Urine POSITIVE (Negative); Protein,Urine 1+ (Negative)
[2024-09-05 17:31] LABS: Appearance,Urine Slightly Cloudy (Clear)
[2024-09-05 19:09] LABS: Bacteria,Urine 4+ /lpf; WBC,Urine TNTC #/hpf (0-3)
--- OUTSIDE RECORDS SUMMARY | 2024-09-09 09:39 | XMS_ITS | Encounter Summary ---
Author Organization [facility] Address [address] [place] [address] Care Team Providers Care Manager Continuous Improvement Name Role Phone Samaria Price MD Unavailable Jasmin Marshall CNP Unavailable [phone] Megan Tamez RN Unavailable Unavailable Junie Aggarwal RN Unavailable Unava ilable Ese Johnson PharmD Unavailable Zaria vailable Carlos Dominguez DO Primary Care Provider [phone] Source Comments This information has been disclosed [...] release of HIV test results or diagnoses. [id number] Reason for Visit * Reason Comments Appointment Encounter Details Date Type Department Care Team ([facility] Contact Info) Description 08/23/2024 Telephone [facility] Endocrinology at [facility] Office [address] [facility] [address] [phone] Vandana Holden MD [address] [facility] Endocrinology [phone] Appointment Social History Tobacco Use Types Packs/Day Years [...] place to sleep or slept in a custodial (including now)? No 04/11/2023 Yearly Questionnaire Answer [...] on file documented as of this encounter Miscellaneous Notes * Telephone Encounter - Peggy Garcia MA - 08/27/2024 9:37 AM EDT Called pt and answered. Told her to allow the patient to keep the appointment with Nighat in August. Pt can make follow-up ith Dr. Holden after that. * Telephone Encounter - Caryn Deleon - 08/23/2024 1:58 PM EDT Patient is est with provider in thyroid clinic Last seen 01/15/24 Patient has new ref for DX H/O fracture Osteoporosis with current pathological fracture, unspecified osteoporosis type, initial encounter Would Adina be able to see patient for this new DX? Was told that provider is not seeing new patient's for the bone DX just est patients Patient was scheduled with Nighat on 09/11 @ 9am and just want to verify of this scheduling before patient comes from [facility] Please advise documented in this encounter Plan of Treatment Upcoming Encounters Date Type Department Care Team (Late st Contact Info) Description 10/10/2024 12:31 PM EDT Hospital Encounter [facility] ENDOSCOPY [address] [phone] Enrike Mims MD [address] [place] [phone] 10/10/2024 12:31 PM EDT - 10/10/2024 2:01 PM EDT Surgery [facility] ENDOSCOPY [address] [place] [phone] Enrike Mims MD [address] [place] [phone] ERCP Scheduled Procedures Name Priority Associated Diagnoses Date/Ti me 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 EDT documented as of this encounter Visit Diagnoses Not on filedocumented in this encounter Care Teams Manager Continuous Improvement Relationship Specialty Start Date End Date Carlos Dominguez DO [address], [place] [address] [place] [address] PCP - General Internal Medicine 04/05/24 Samaria Price MD [address] [place] [address] Hematology/Oncology [phone] Medical Oncologist [facility] Medical Oncology 10/20/21 Jasmin Marshall, RAISIN SEPARATOR OPERATOR [address] [place] [address] Hematology/Oncology [phone] Nurse Practitioner [facility] Hematology and Oncology 10/20/21 Megan Tamez, RN Nurse Clinician Medical Oncology 10/20/21 Junie Agagrwal, MARCOS Txp Post Coordinator Iron Worker Apprentice 10/14/22 Ese Johnson, NahunD Pharmacist Pharmacist 10/17/22 documented as of this encounter
--- OUTSIDE RECORDS SUMMARY | 2024-09-09 09:39 | XMS_ITS | Encounter Summary ---
Author Organization [facility] Address [address] [place] [address] Care Team Providers Care Electrician Constructor Supervisor Name Role Phone Samaria Price MD Unavailable Jasmin Marshall CNP Unavailable [phone] Megan Tamez RN Unavailable Unavailable Junie Aggarwal RN Unavailable Unava ilable Ese Johnson PharmD Unavailable Zaria vailable Carlos Dominguez DO Primary Care Provider [phone] Source Comments This information has been disclosed [...] release of HIV test results or diagnoses. [id number] Reason for Visit * Reason Comments Procedure REPEAT ERCP Encounter Details Date Type Department Care Team (Late Contact Info) Description 08/16/2024 Telephone [facility] Gastroenterology at [facility] Office 222 [facility] [address] [place] [address] Enrike Wilson MD [address] [place] [address] Procedure (/REPEAT ERCP) Social History Tobacco Use Types Packs/Day Years [...] encounter Miscellaneous Notes * Telephone Encounter - Lucita Leo - 08/16/2024 9:11 AM EDT Patient is scheduled for a ERCP @ [facility] w/ GENERAL w/ Dr. WILSON on 10/10/2024. Pt instructed to arrive at 11:00 AM procedure is scheduled at 12:30 PM. Prep instructions for NPO AFTER MIDNIGHT NO Anticoagulants NO GLP-1 meds * Telephone Encounter - Lucita Leo - 08/16/2024 9:05 AM EDT ----- Message from Liliaan Martinez MD sent at 05/27/2024 10:04 AM EDT ----- Regarding: Please schedule follow up ERCP for September 2024 Kolton Bearden documented in this encounter Plan of Treatment Upcoming Encounters Date Type Department Care Team (Late st Contact Info) Description 10/10/2024 12:31 PM EDT Hospital Encounter [facility] ENDOSCOPY [address] [place] [address] Enrike Wilson MD [address] [place] [phone] 10/10/2024 12:31 PM EDT - 10/10/2024 2:01 PM EDT Surgery [facility] ENDOSCOPY [address] [place] [phone] Enrike Wilson MD [address] [place] [phone] ERCP Scheduled Procedures Name Priority Associated Diagnoses Date/Ti ks 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 EDT documented as of this encounter Visit Diagnoses Not on filedocumented in this encounter Care Teams Electrician Constructor Supervisor Relationship Specialty Start Date End Date Carlos Dominguez DO [address], [place] [address] [place] [address] PCP - General Internal Medicine 04/05/24 Samaria Price MD [address] [place] [address] Hematology/[place] [phone] Medical Oncologist [facility] Medical Oncology 10/20/21 Jasmin Marshall, NEONATAL SOCIAL WORKER [address] [place] [address] Hematology/[place] [phone] Nurse Practitioner [facility] Hematology and Oncology 10/20/21 Megan Tamez, MARCOS Nurse Clinician Medical Oncology 10/20/21 Junie Aggarwal, MARCOS Txp Post Coordinator Senior Accounts Payable Specialist 10/14/22 Ese Johnson, NahunD Pharmacist Pharmacist 10/17/22 documented as of this encounter
--- OUTSIDE RECORDS SUMMARY | 2024-09-09 09:39 | XMS_ITS | Encounter Summary ---
Author Organization [facility] Address [address] [place] [address] Care Team Providers Care Extractor Machine Operator Name Role Phone Samaria Price MD Unavailable Jasmin Marshall CNP Unavailable [phone] Megan Tamez RN Unavailable Unavailable Junie Aggarwal RN Unavailable Unava ilable Ese Johnson PharmD Unavailable Zaria vailable Carlos Dominguez DO Primary Care Provider [phone] Source Comments This information has been disclosed [...] release of HIV test results or diagnoses. [id number] Reason for Referral * Physician/EFREN (Routine) - No Authorization Required Specialty Diagnoses / Procedures Referred By Arlet arana Referred To Contact Endocrinology Diagnoses H/O fracture Osteoporosis with current pathological fracture, unspecified osteoporosis type, initial encounter [facility] Liver Transplant at [address] [address] Phone: tel: fax: Referral ID Status Reason Start Date Expiration Date Visits Requested Visits Authorized [id number] No Authorization Required 08/22/2024 02/18/2025 1 1 Scheduling Instructions For appointments, please call [phone]. Reason for Visit * Reason Comments Results Encounter Details Date Type Department Care Team (Late st Contact Info) Description 08/22/2024 Telephone [facility] Liver Transplant at [facility] [address] [facility] [address] [place] [address] Junie Aggarwal RN Results Social History Tobacco Use Types Packs/Day Years Used Date Smoking Tobacco: Never Smokeless Tobacco: Never Alcohol Use Standard Drinks/Week Comments Never 0 (1 standard drink = 0.6 oz pur e alcohol) Utilities Answer Date Recorded In the past 12 months has th e [employer], gas, oil, or water company threatened to [...] place to sleep or slept in a chcf (including now)? No 04/11/2023 Yearly Questionnaire Answer [...] encounter Miscellaneous Notes * Telephone Encounter - Junie Aggarwal RN - 08/22/2024 10:[address] Nagy: Please refer to Endocrinology Referral placed and [email or web address] message sent with phone number to call and schedule. * Telephone Encounter - Junie Aggarwal RN - 08/22/2024 10:26 AM EDT Dexa scan findings as follows: FINDINGS: Spine (L1-L4): BMD: 1.126 g/cm2 , [...] sex, race and age. Age: 74 years Impression IMPRESSION: Osteoporosis. Since the study dated 2023, bone mineral density has significantly decreased in the left forearm and right total hip. documented in this encounter Plan of Treatment Upcoming Encounters Date Type Department Care Team (Late st Contact Info) Description 10/10/2024 12:31 PM EDT Hospital Encounter [facility] ENDOSCOPY [address] [place] [address] Enrike Mims MD [address] [place] [phone] 10/10/2024 12:31 PM EDT - 10/10/2024 2:[address] [facility] ENDOSCOPY [address] [place] [address] Enrike Mims MD [address] [place] [phone] ERCP Scheduled Procedures Name Priority Associated Diagnoses Date/Ti me 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 EDT Scheduled Referrals Name Type Priority Associated Diagnoses Orde r Schedule Endocrinology Outpatient Referral Routine H/O fracture Osteoporosis with current pathological fracture, unspecified osteoporosis type, initial encounter Ordered: 08/22/2024 documented as of this encounter Visit Diagnoses Diagnosis H/O fracture- Primary Osteoporosis with current pathological fracture, unspecified osteoporosis type, initial encounter Biliary stricture Obstruction of bile duct documented in this encounter Care Teams Extractor Machine Operator Relationship Specialty Start Date End Date Carlos Dominguez DO [address] [address] [place] [address] PCP - General Internal Medicine 04/05/24 Samaria Price MD [facility]8 [facility] Hematology/[place] [phone] Medical Oncologist [facility] Medical Oncology 10/20/21 Jasmin Marshall HYDROGEN PLANT OPERATOR [address] [facility] Hematology/[place] [phone] Nurse Practitioner [facility] Hematology and Oncology 10/20/21 Megan Tamez, MARCOS Nurse Clinician Medical Oncology 10/20/21 Junie Aggarwal, MARCOS Txp Post Coordinator Janitorial Supervisor 10/14/22 Ese Johnson, PharmD Pharmacist Pharmacist 10/17/22 documented as of this encounter
--- OUTSIDE RECORDS SUMMARY | 2024-09-09 09:39 | XMS_ITS | Encounter Summary ---
Author Organization [facility] Address [address] [place] [address] Care Team Providers Care High Reach Operator Name Role Phone Samaria Price MD Unavailable Jasmin Marshall CNP Unavailable [phone] Megan Tamez RN Unavailable Unavailable Junie Aggarwal RN Unavailable Unava ilable Ese Johnson PharmD Unavailable Zaria vailable Carlos Dominguez DO Primary Care Provider [phone] Source Comments This information has been disclosed [...] release of HIV test results or diagnoses. [id number] Health Encounter Details Date Type Department Care Team (Late st Contact Info) Description 08/21/2024 Results Follow-Up [facility] Advanced Heart Failure at [place] [facility] [address] [facility] [address] [place] [phone] Beth Crowe DNP 222 [facility] [place] [phone] Ferritin, Iron Studies (Iron + TIBC), B Natriuretic Peptide, Transferrin Receptor, Soluble Social History Tobacco Use Types Packs/Day Years [...] 10/29 Assistance needed for: Not on file 08/12/202 4 Yearly Questionnaire Answer Date Record ed [...] Description 10/10/2024 12:31 PM EDT Hospital Encounter [facility] ENDOSCOPY [address] [place] [phone] Enrike Mims MD [address] [place] [phone] 10/10/2024 12:31 PM EDT - 10/10/2024 2:01 PM EDT Surgery [facility] ENDOSCOPY [address] [place] [phone] Enriek Mims MD [address] [place] [phone] ERCP Scheduled Procedures Name Priority Associated Diagnoses Date/Ti me 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 Medical Oncology 10/20/21 Jasmin Marshall, AUTOMATIC PINSETTER MECHANIC [address] [facility] Hematology/[place] [phone] Nurse Practitioner [facility] Hematology and Oncology 10/20/21 Megan Tamez, RN Nurse Clinician Medical Oncology 10/20/21 Junie Aggarwal, MARCOS Txp Post Coordinator Licensed Life And Health Agent 10/14/22 Ese Johnson, PharmD Pharmacist Pharmacist 10/17/22 documented as of this encounter
--- OUTSIDE RECORDS SUMMARY | 2024-09-09 09:39 | XMS_ITS | Encounter Summary ---
Author Organization [place] [address] Care Team Providers Care Tile Sorter Name Role Phone Unavailable Primary Care Provider Unavailabl e Encounter Details Date Type Department Care Team (Latest Contact Info) Description 04/02/2023 External Contact [facility] Pulmonology [facility] [address] [phone] Roddy Alvarez MD [address] [phone] Bilateral pleural effusion (Primary Dx); Chronic respiratory failure with hypercapnia (HCC); Pleural effusion; Cough, unspecified type Social History Tobacco Use Types Packs/Day Years Used Date Smoking Tobacco: Never Assessed Sex and Gender Information Value Date Recorded Sex Assigned at Not on file Legal Sex Male 10:28 AM EDT Gender Identity Not on file Sexual Orientation Not on file documented as of this encounter Plan of Treatment Not on file documented as of this encounter Visit Diagnoses Diagnosis Bilateral pleural effusion- Primary Unspecified pleural effusion Chronic respiratory failure with hypercapnia (HCC) Chronic respiratory failure Pleural effusion Unspecified pleural effusion Cough, unspecified type documented in this encounter
--- OUTSIDE RECORDS SUMMARY | 2024-09-09 09:39 | XMS_ITS | Encounter Summary ---
Author Organization [facility] Address [address] [place] [address] Care Team Providers Care Varnisher Plasticoater Name Role Phone Samaria Price MD Unavailable Jasmin Marshall CNP Unavailable [phone] Megan Tamez RN Unavailable Unavailable Junie Aggarwal RN Unavailable Unava ilable Ese Johnson PharmD Unavailable Zaria vailable Carlos Dominguez DO Primary Care Provider [phone] Source Comments This information has been disclosed [...] release of HIV test results or diagnoses. [id number] Health Encounter Details Date Type Department Care Team (Late st Contact Info) Description 08/27/2024 Orders Only [facility] Advanced Heart Failure at [facility] 222 [facility] [address] [place] [phone] Beth Crowe, JORGE L [address] [place] [address] Social History Tobacco Use Types Packs/Day Years [...] Description 10/10/2024 12:31 PM EDT Hospital Encounter [facility] ENDOSCOPY [address] [place] [phone] Enrike Mims MD [address] [place] [phone] 10/10/2024 12:31 PM EDT - 10/10/2024 2:01 PM EDT Surgery [facility] ENDOSCOPY [address] [place] [phone] Enrike Mims MD [address] [place] [phone] ERCP Scheduled Procedures Name Priority Associated Diagnoses Date/Ti me 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 EDT documented as of this encounter Visit Diagnoses Not on filedocumented in this encounter Care Teams Varnisher Plasticoater Relationship Specialty Start Date End Date Carlos Dominguez DO [address] [place] [address] [place] [id number] PCP - General Internal Medicine 04/05/24 Samaria Price MD [address] [place] [address] Hematology/[place] [phone] Medical Oncologist [facility] Medical Oncology 10/20/21 Jasmin Marshall, CREAM TESTER [facility]8 [facility] Hematology/[place] [phone] Nurse Practitioner [facility] Hematology and Oncology 10/20/21 Megan Tamez, RN Nurse Clinician Medical Oncology 10/20/21 Junie Aggarwal, MARCOS Txp Post Coordinator Head Of Merchandise Buying 10/14/22 Ese Johnson, PharmD Pharmacist Pharmacist 10/17/22 documented as of this encounter
--- OUTSIDE RECORDS SUMMARY | 2024-09-09 09:39 | XMS_ITS | Encounter Summary ---
Author Organization [facility] Address [address] [place] [address] Care Team Providers Care Ice Skater Name Role Phone Samaria Price MD Unavailable Jasmin Marshall CNP Unavailable [phone] Megan Tamez RN Unavailable Unavailable Junie Aggarwal RN Unavailable Unava ilable Ese Johnson PharmD Unavailable Zaria vailable Carlos Dominguez DO Primary Care Provider [phone] Source Comments This information has been disclosed [...] release of HIV test results or diagnoses. [id number] Reason for Visit * Reason Comments Results Encounter Details Date Type Department Care Team (Late st Contact Info) Description 09/02/[address] [facility] Liver Transplant at [address] [place] [address] Junie Aggarwal, MARCOS Results Social History Tobacco Use Types Packs/Day [...] place to sleep or slept in a assisted (including now)? No 04/11/2023 Yearly Questionnaire Answer [...] Telephone Encounter - Junie Aggarwal RN - 09/02/2024 8:18 AM EDT Lab results from 08/30/24 Cr 1.09 BUN 29 AST 20 ALT 8 Alk Phos 86 350.7 CSA level -- Meds taken. Labs drawn for Cards Current ISP: CSA 25mg BID MMF 250mg BID Pred 5mg daily Lab results reviewed and are normal, unchanged, improving or without clinically significant abnormalities. Immunosuppression therapeutic per [facility] liver transplant guidelines or custom goal as documented in prior clinic visits. Will continue to monitor as per previously determined lab intervals. documented in this encounter Plan of Treatment Upcoming Encounters Date Type Department Care Team (Late st Contact Info) Description 10/10/2024 12:31 PM EDT Hospital Encounter [facility] ENDOSCOPY [address] [place] [address] Enrike Mims MD [address] [place] [phone] 10/10/2024 12:31 PM EDT - 10/10/2024 2:01 PM EDT Surgery [facility] ENDOSCOPY [address] [place] [phone] Enrike Mims MD [address] [place] [phone] ERCP Scheduled Procedures Name Priority Associated Diagnoses Date/Ti me 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 EDT documented as of this encounter Visit Diagnoses Not on filedocumented in this encounter Care Teams Ice Skater Relationship Specialty Start Date End Date AlbertoCarlos nieves DO [address], [place], [place] [address] [place] [address] PCP - General Internal Medicine 04/05/24 Samaria Price MD [facility]8 [facility] Hematology/[place] [phone] Medical Oncologist [facility] Medical Oncology 10/20/21 Jasmin Marshall, HEEL CASER [facility]8 [facility] Hematology/[place] [phone] Nurse Practitioner [facility] Hematology and Oncology 10/20/21 Megan Tamez, MARCOS Nurse Clinician Medical Oncology 10/20/21 Junie Aggarwal, MARCOS Txp Post Coordinator Insurance Account Representative 10/14/22 Ese Johnson, NahunD Pharmacist Pharmacist 10/17/22 documented as of this encounter
--- OUTSIDE RECORDS SUMMARY | 2024-09-09 09:39 | XMS_ITS | Encounter Summary ---
Author Organization [facility] Address [address] [place] [address] Care Team Providers Care Surveillance Sensor Operator Name Role Phone Samaria Price MD Unavailable Jasmin Marshall CNP Unavailable [phone] Megan Tamez RN Unavailable Unavailable Junie Aggarwal RN Unavailable Unava ilable Ese Johnson PharmD Unavailable Zaria vailable Carlos Dominguez DO Primary Care Provider [phone] Source Comments This information has been disclosed [...] release of HIV test results or diagnoses. [id number] Reason for Visit * Reason Comments Appointment Appointment Confirme d - Called patient to reschedule/change 11/07/[address] Corona from Dr. Ruiz, who will be still on service. agreed due to travel from a distant area. Encounter Details Date Type Department Care Team (Late Contact Info) Description 08/26/2024 Telephone [facility] 200 [facility] [address] [place] [address] Shalonda Ruiz MD [address] [facility] [place] [address] Appointment (Appointment Confirmed - Called patient to reschedule/change 11/07/[address] Corona from Dr. Ruiz, who will be still on service. agreed due to travel from a distant area.) Social History Tobacco Use Types Packs/Day Years Used Date Smoking Tobacco: Never Smokeless Tobacco: Never Alcohol Use Standard Drinks/Week Comments Never 0 (1 standard drink = 0.6 oz pur e alcohol) Utilities Answer Date Recorded In the past 12 months has th e [employer], gas, oil, or water company threatened to [...] place to sleep or slept in a fci (including now)? 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 EDT documented as of this encounter Visit Diagnoses Not on filedocumented in this encounter Care Teams Surveillance Sensor Operator Relationship Specialty Start Date End Date Carlos Dominguez DO [address] [address] [place] [id number] PCP - General Internal Medicine 04/05/24 Samaria Price MD [facility]4 [facility] Hematology/[place] [address] Medical Oncologist [facility] Medical Oncology 10/20/21 Jasmin Marshall REGISTERED NURSE MATERNITY [address] [place] [address] Hematology/[place] [address] Nurse Practitioner [facility] Hematology and Oncology 10/20/21 Megan Tamez, RN Nurse Clinician Medical Oncology 10/20/21 Junie Aggarwal, MARCOS Txp Post Coordinator Truck Driver Supervisor 10/14/22 Ese Johnson, NahunD Pharmacist Pharmacist 10/17/22 documented as of this encounter
--- OUTSIDE RECORDS SUMMARY | 2024-09-09 09:39 | XMS_ITS | Encounter Summary ---
Author Organization [facility] Address [address] [place] [address] Care Team Providers Care Shed Hand Name Role Phone Samaria Price MD Unavailable Jasmin Marshall CNP Unavailable [phone] Megan Tamez RN Unavailable Unavailable Junie Aggarwal RN Unavailable Unava ilable Ese Johnson PharmD Unavailable Zaria vailable Carlos Dominguez DO Primary Care Provider [phone] Source Comments This information has been disclosed [...] release of HIV test results or diagnoses. [id number] Health Encounter Details Date Type Department Care Team (Late st Contact Info) Description 08/31/2024 Results Follow-Up [facility] Advanced Heart Failure at [facility] [address] [facility] [address] [place] [phone] Beth Crowe DNP [address] [facility] [place] [phone] B Natriuretic Peptide Social History Tobacco Use Types Packs/Day Years [...] place to sleep or slept in a residential (including now)? 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 EDT documented as of this encounter Visit Diagnoses Not on filedocumented in this encounter Care Teams Shed Hand Relationship Specialty Start Date End Date Carlos Dominguez DO [address] [address] [place] [id number] PCP - General Internal Medicine 04/05/24 Samaria Price MD [address] [place] [address] Hematology/[place] [phone] Medical Oncologist [facility] Medical Oncology 10/20/21 Jasmin Marshall, DIRECTOR DIGITAL SALES [address] [facility] Hematology/[place] [phone] Nurse Practitioner [facility] Hematology and Oncology 10/20/21 Megan Tamez, RN Nurse Clinician Medical Oncology 10/20/21 Junie Aggarwal, MARCOS Txp Post Coordinator Film Booker 10/14/22 Ese Johnson, NahunD Pharmacist Pharmacist 10/17/22 documented as of this encounter
--- OUTSIDE RECORDS SUMMARY | 2024-09-09 09:39 | XMS_ITS | Encounter Summary ---
Author Organization [facility] Address [address] [place] [address] Care Team Providers Care Respiratory Medicine Physician Name Role Phone Samaria Price MD Unavailable Jasmin Marshall CNP Unavailable [phone] Megan Tamez RN Unavailable Unavailable Delores BETTS MD Leo Primary Care Provide r Junie Aggarwal RN Unavailable Unava ilable Ese Johnson PharmD Unavailable Zaria vailable Carlos Dominugez DO Primary Care Provider [phone] Source Comments This information has been disclosed [...] release of HIV test results or diagnoses. [id number] Health Encounter Details Date Type Department Care Team (Late st Contact Info) Description 12/26/2023 Orders Only [facility] Outreach Lab Test Referral Center [address] [place] [phone] Sujey Vallejo Acute on chronic HFrEF (heart failure with reduced ejection fraction) ([facility]) Social History Tobacco Use Types [...] place to sleep or slept in a senior care (including now)? No 04/11/2023 Yearly Questionnaire Answer [...] Description 10/10/2024 12:31 PM EDT Hospital Encounter [facility] ENDOSCOPY [address] [place] [phone] Enrike Mims MD [address] [place] [phone] 10/10/2024 12:31 PM EDT - 10/10/2024 2:01 PM EDT Surgery [facility] ENDOSCOPY [address] [place] [phone] Enrike Mims MD [address] [place] [phone] ERCP Scheduled Procedures Name Priority Associated Diagnoses Date/Ti me 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 EDT documented as of this encounter Visit Diagnoses Diagnosis Acute on chronic HFrEF (heart failure with reduced ejection fraction) ([facility]) Biliary stricture Obstruction of bile duct documented in this encounter Care Teams Respiratory Medicine Physician Relationship Specialty Start Date End Date Leo Estrella III, MD [address] [place] [address] PCP - General Family Medicine 12/22/21 04/04/24 Carlos Dominguez DO [address] [place] [address] [address] [place] [address] PCP - General Internal Medicine 04/05/24 Samaria Price MD [address] [place] [address] Hematology/[place] [phone] Medical Oncologist [facility] Medical Oncology 10/20/21 Jasmin Marshall OPTICAL DESIGNER [address] [place] [address] Hematology/[place] [phone] Nurse Practitioner [facility] Hematology and Oncology 10/20/21 Megan Tamez, RN Nurse Clinician Medical Oncology 10/20/21 Junie Aggarwal, MARCOS Txp Post Coordinator Vice President Of Brand Management 10/14/22 Ese Johnson, NhaunD Pharmacist Pharmacist 10/17/22 documented as of this encounter
--- OUTSIDE RECORDS SUMMARY | 2024-09-09 09:39 | XMS_ITS | Encounter Summary ---
Author Organization [facility] Address [address] [place] [address] Care Team Providers Care Medical Secretary Receptionist Name Role Phone Samaria Price MD Unavailable Jasmin Marshall CNP Unavailable [phone] Megan Tamez RN Unavailable Unavailable Junie Aggarwal RN Unavailable Unava ilable Ese Johnson PharmD Unavailable Zaria vailable Carlos Dominguez DO Primary Care Provider [phone] Source Comments This information has been disclosed [...] release of HIV test results or diagnoses. [id number] Reason for Referral * Surgical (Routine) - New Request Specialty Diagnoses / Procedures Referred By Arlet arana Referred To Contact Gastroenterology Diagnoses Biliary stricture S/P liver transplant ([facility]) Procedures Case request GI: ERCP Enrike Mims MD [address] [place] [address] Phone: tel: fax: Referral ID Status Reason Start Date Expiration Date V isits Requested Visits Authorized [id number] New Request 08/16/2024 02/12/2025 1 1 Encounter Details Date Type Department Care Team (Late st Contact Info) Description 08/16/2024 Orders Only [facility] Gastroenterology at [facility] 222 [facility] [address] [place] [address] Enrike Mims MD [address] [place] [address] Biliary stricture (Primary Dx); S/P liver transplant (CMS-HCC) Social History Tobacco Use Types Packs/Day Years Used Date Smoking Tobacco: Never Smokeless Tobacco: Never Alcohol Use Standard Drinks/Week Comments Never 0 (1 standard drink = 0.6 oz pur e alcohol) Utilities Answer Date Recorded In the past 12 months has [employer], gas, oil, or water [employer] threatened to shut off services in your [...] Description 10/10/2024 12:31 PM EDT Hospital Encounter [facility] ENDOSCOPY [address] [place] [phone] Enrike Mims MD [address] [place] [phone] 10/10/2024 12:31 PM EDT - 10/10/2024 2:01 PM EDT Surgery [facility] ENDOSCOPY [address] [place] [phone] Enrike Mims MD [address] [place] [phone] ERCP Scheduled Procedures Name Priority Associated Diagnoses Date/Ti me 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 EDT documented as of this encounter Visit Diagnoses Diagnosis Biliary stricture- Primary Obstruction of bile duct S/P liver transplant (CMS-HCC) Biliary stricture Obstruction of bile duct documented in this encounter Care Teams Medical Secretary Receptionist Relationship Specialty Start Date End Date Carlos Dominguez DO [address], [place] [address] [place], [place] [address] PCP - General Internal Medicine 04/05/24 Samaria Price MD [address] [place] [address] Hematology/[place] [phone] Medical Oncologist [facility] Medical Oncology 10/20/21 Jasmin Marshall ELECTRICAL MECHANIC [address] [place] [address] Hematology/[place] [phone] Nurse Practitioner [facility] Hematology and Oncology 10/20/21 Megan Tamez, RN Nurse Clinician Medical Oncology 10/20/21 Junie Aggarwal, MARCOS Txp Post Coordinator On Air Talent 10/14/22 Ese Johnson, NahunD Pharmacist Pharmacist 10/17/22 documented as of this encounter
--- OUTSIDE RECORDS SUMMARY | 2024-09-09 09:39 | XMS_ITS | Encounter Summary ---
Author Organization [facility] Address [address] [place] [address] Care Team Providers Care Sprinkling System Irrigator Name Role Phone Samaria Price MD Unavailable Jasmin Marshall CNP Unavailable [phone] Megan Tamez RN Unavailable Unavailable Junie Aggarwal RN Unavailable Unava ilable Ese Johnson PharmD Unavailable Zaria vailable Carlos Dominguez DO Primary Care Provider [phone] Source Comments This information has been disclosed [...] release of HIV test results or diagnoses. [id number] Reason for Visit * Reason Comments Results Encounter Details Date Type Department Care Team (Late st Contact Info) Description 08/20/2024 Telephone [facility] Liver Transplant at [address] [place] [address] Junie Aggarwal, MARCOS Results Social [...] place to sleep or slept in a [place] facility (including now)? No 04/11/2023 Yearly Questionnaire Answer [...] Telephone Encounter - Junie Aggarwal RN - 08/20/2024 6:58 PM EDT Lab results from 08/20/24 reviewed. Cr 1.40 (from 1.22); BUN 30 (from 29). AST 10 (from 11) ALT 9 (from 10) Alk Phos 96 (from 89) 146.2 CSA level Current ISP: CSA 25mg BID MMF 250mg BID Pred 5mg daily Lab results reviewed and are normal, unchanged, improving or without clinically significant abnormalities. Immunosuppression therapeutic per [facility] liver transplant guidelines or custom goal as documented in prior clinic visits. Will continue to monitor as per previously determined lab intervals. SOASTA message sent to Pt to push hydration and repeat labs in 1 week to monitor kidney levels. documented in this encounter Plan of Treatment Upcoming Encounters Date Type Department Care Team (Late st Contact Info) Description 10/10/2024 12:31 PM EDT Hospital Encounter [facility] ENDOSCOPY [address] [place] [phone] Enrike Mims MD [address] [place] [phone] 10/10/2024 12:31 PM EDT - 10/10/2024 2:01 PM EDT Surgery [facility] ENDOSCOPY [address] [place] [phone] Enrike Mims MD [address] [place] [address] ERCP Scheduled Procedures Name Priority Associated Diagnoses Date/Ti ny 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 EDT documented as of this encounter Visit Diagnoses Not on filedocumented in this encounter Care Teams Sprinkling System Irrigator Relationship Specialty Start Date End Date Amisha DominguezewDO [address], [place], [place] [address] [place], [place] [address] PCP - General Internal Medicine 04/05/24 Samaria Price MD [facility] Hematology/[place] [phone] Medical Oncologist [facility] Medical Oncology 10/20/21 Jasmin Marshall COMPUTER NUMERIC CONTROL SETTER [address] [place] [address] Hematology/[place] [phone] Nurse Practitioner [facility] Hematology and Oncology 10/20/21 Megan Tamez, RN Nurse Clinician Medical Oncology 10/20/21 Junie Aggarwal, MARCOS Txp Post Coordinator Disposal Man 10/14/22 Ese Johnson, NahunD Pharmacist Pharmacist 10/17/22 documented as of this encounter
--- OUTSIDE RECORDS SUMMARY | 2024-09-09 09:39 | XMS_ITS | Encounter Summary ---
Author Organization [facility] Address [address] [place] [address] Care Team Providers Care Hearing Therapy Teacher Name Role Phone Samaria Price MD Unavailable Jasmin Marshall CNP Unavailable [phone] Megan Tamez RN Unavailable Unavailable Junie Aggarwal RN Unavailable Unava ilable Ese Johnson PharmD Unavailable Zaria vailable Carlos Dominguez DO Primary Care Provider [phone] Source Comments This information has been disclosed [...] release of HIV test results or diagnoses. [id number] Reason for Visit * Reason Comments Medication Refill Encounter Details Date Type Department Care Team (Late st Contact Info) Description 08/20/[address] [facility] Ophthalmology at [facility] [address] [facility] [address] [place] [phone] Zach Treviño MD [address] [place] [address] Social History Tobacco Use Types [...] encounter Miscellaneous Notes * Telephone Encounter - Amelie Brito RN - 08/20/2024 1:15 PM EDT Requested Prescriptions Pending Prescriptions Disp Refills brimonidine (ALPHAGAN) 0.2 % ophthalmic solution [Pharmacy Med Name: Brimonidine Tartrate 0.2 % Ophthalmic Solution] 10 mL 0 Sig: INSTILL 1 DROP INTO RIGHT EYE THREE TIMES DAILY documented in this encounter Plan of Treatment Upcoming Encounters Date Type Department Care Team (Late st Contact Info) Description 10/10/2024 12:31 PM EDT Hospital Encounter [facility] ENDOSCOPY [address] [place] [address] Enrike Mims MD [address] [place] [phone] 10/10/2024 12:31 PM EDT - 10/10/2024 2:01 PM EDT Surgery [facility] ENDOSCOPY [address] [place] [phone] Enrike Mims MD [address] [place] [phone] ERCP Scheduled Procedures Name Priority Associated Diagnoses Date/Ti me 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 EDT documented as of this encounter Visit Diagnoses Not on filedocumented in this encounter Care Teams Hearing Therapy Teacher Relationship Specialty Start Date End Date Alberto Carlos, [address] [address] [place] [address] PCP - General Internal Medicine 04/05/24 Samaria Price MD [facility]8 [facility] Hematology/[place] [phone] Medical Oncologist [facility] Medical Oncology 10/20/21 Jasmin Marshall TELECOMMUNICATIONS NETWORK PLANNER [facility]8 [facility] Hematology/[place] [phone] Nurse Practitioner [facility] Hematology and Oncology 10/20/21 Megan Tamez, MARCOS Nurse Clinician Medical Oncology 10/20/21 Junie Aggarwal, MARCOS Txp Post Coordinator Cellophane Press Operator 10/14/22 Ese Johnson, NahunD Pharmacist Pharmacist 10/17/22 documented as of this encounter
--- OUTSIDE RECORDS SUMMARY | 2024-09-09 09:42 | XMS_ITS | Encounter Summary ---
Author Organization Address [address] [place] [address] Care Team Providers Care Regulatory Law Specialist Name Role Phone Samaria Price MD Unavailable Jasmin Marshall CNP Unavailable [phone] Megan Tamez RN Unavailable Unavailable Junie Aggarwal RN Unavailable Unava ilable Ese Johnson PharmD Unavailable Zaria vailable Carlos Dominguez DO Primary Care Provider [phone] Source Comments This information has been disclosed [...] release of HIV test results or diagnoses. [id number] Health Reason for Visit * Reason Comments Medication Refill Encounter Details Date Type Department Care Team (Late st Contact Info) Description 06/27/2024 Refill [facility] Ophthalmology at [facility] [address] [facility] [address] [place] [phone] Jas Sierra MD [address] [place] [address] Social History Tobacco Use Types [...] Telephone Encounter - Amelie Brito RN - 06/27/2024 7:49 AM EDT Requested Prescriptions Pending Prescriptions Disp Refills [...] [facility] ENDOSCOPY [address] [place] [address] Enrike Mims MD [address] [place] [phone] 10/10/2024 12:31 PM EDT - 10/10/2024 2:01 PM EDT Surgery [facility] ENDOSCOPY [address] [place] [phone] Enrike Mims MD [address] [place] [phone] ERCP Scheduled Procedures Name Priority Associated Diagnoses Date/Ti me 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 EDT documented as of this encounter Visit Diagnoses Not on filedocumented in this encounter Care Teams Regulatory Law Specialist Relationship Specialty Start Date End Date Alberto Carlos, [address] [address] [place] [address] PCP - General Internal Medicine 04/05/24 Samaria Price MD [address] [place] [address] Hematology/[place] [phone] Medical Oncologist [facility] Medical Oncology 10/20/21 Jasmin Marshall TANNING SOLUTION MAKER [address] [place] [address] Hematology/[place] [phone] Nurse Practitioner [facility] Hematology and Oncology 10/20/21 Megan Tamez, MARCOS Nurse Clinician Medical Oncology 10/20/21 Junie Aggarwal, MARCOS Txp Post Coordinator Tunnel Kiln Repairer 10/14/22 Ese Johnson, NahunD Pharmacist Pharmacist 10/17/22 documented as of this encounter
--- OUTSIDE RECORDS SUMMARY | 2024-09-09 09:42 | XMS_ITS | Encounter Summary ---
Author Organization [facility] Address [address] [place] [address] Care Team Providers Care World Renowned Chef And Restaurant Owner Name Role Phone Samaria Price MD Unavailable Jasmin Marshall CNP Unavailable [phone] Megan Tamez RN Unavailable Unavailable Junie Aggarwal RN Unavailable Unava ilable Ese Johnson PharmD Unavailable Zaria vailable Carlos Dominguez DO Primary Care Provider [phone] Source Comments This information has been disclosed [...] release of HIV test results or diagnoses. [id number] Reason for Referral * Physician/EFREN (Routine) - Closed Specialty Diagnoses / Procedures Referred By Arlet arana Referred To Contact Pharmacy Diagnoses Chronic systolic heart failure ([facility]) Beth Crowe, JORGE L [address] [place] [address] Phone: tel: fax: [facility] [place] [address] Phone: tel: Referral ID Status Reason Start Date Expiration Date Visits Re quested Visits Authorized [id number] Closed 07/05/2024 01/01/2025 1 1 Encounter Details Date Type Department Care Team (Late st Contact Info) Description 07/05/2024 Telephone [facility] Advanced Heart Failure at [facility] Office [address] [facility] [address] [place] [phone] Beth Crowe DNP [address] [place] [address] Social History Tobacco Use Types Packs/Day Years Used Date Smoking Tobacco: Never Smokeless Tobacco: Never Alcohol Use Standard Drinks/Week Comments Never 0 (1 standard drink = 0.6 oz pur e alcohol) Utilities Answer Date Recorded In the past 12 months has [employer], gas, oil, or water [email or web address] threatened to shut off services in your [...] place to sleep or slept in a longterm (including now)? No 04/11/2023 Yearly Questionnaire Answer [...] encounter Miscellaneous Notes * Telephone Encounter - Beth Crowe, JORGE L - 07/05/2024 10:40 AM EDT Advanced heart failure Subjective: René Cornejo is a 74 y.o.male [...] RCA, Episodic Hypotension, History of Present Illness: Patient called with home blood pressures Review of Symptoms: The remainder of 12 [...] has a past medical history of Aspergillosis (CMS-HCC) (07/2022), Autoimmune hepatitis (CMS-HCC), Benign prostatic hyperplasia, Blindness of right eye, Cancer (CMS-HCC) (2020), CHF (congestive heart failure) (CMS-HCC), Coronary artery disease (2013), Diverticulosis (2020), End stage liver disease ([facility]), GERD (gastroesophageal reflux disease) (1968), HCC (hepatocellular carcinoma) ([facility]), Hearing loss (1984), Heart failure ([facility]) (03/2023), High blood pressure (03/2020), High cholesterol,Hypertension, Hypothyroidism, Myocardial infarction ([facility]) (03/2023), Osteoporosis (2022), and Stroke ([facility]). Patient Active Problem List Diagnosis Date Noted H/O fracture 04/26/2023 Myocardial infarction ([facility]) 04/26/2023 Shortness of breath 04/26/2023 Chronic systolic heart failure ([facility]) 04/26/2023 Other specified counseling 04/26/2023 History of falling 02/21/2023 snf (current) use of anticoagulants 02/17/2023 Encounter for therapeutic drug monitoring 02/14/2023 Immunosuppression ([facility]) 02/14/2023 Pleural effusion, not elsewhere classified 01/31/2023 Solitary pulmonary nodule 01/31/2023 Insomnia, unspecified 01/31/2023 Personal history of urinary (tract) infections 01/31/2023 Unspecified fracture of left femur, subsequent encounter for closed fracture with routine healing 01/31/2023 BPH (benign prostatic hyperplasia) 12/07/2022 Benign prostatic hyperplasia 12/07/2022 snf (current) use of systemic steroids 10/17/2022 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 10/17/2022 snf current use of systemic steroids 10/17/2022 Hemiplga following cerebral infrc affecting left nondom side ([facility]) 10/01/2022 Critical illness myopathy 09/30/2022 Urinary retention 09/26/2022 Retention of urine 09/26/2022 Encounter for fitting and adjustment of urinary device 09/12/2022 Encounter for fitting and adjustment of urinary device 09/12/2022 Dysphagia 09/12/2022 Acute encephalopathy 08/28/2022 Antibiotic causing adverse effect 08/28/2022 Adverse effect of anti-infective 08/28/2022 Disorder of brain 08/28/2022 Brain abscesses 08/22/2022 [facility] 08/22/2022 Malignant neoplasm of liver, primary ([facility]) 08/21/2022 Liver transplant recipient ([facility]) 08/09/2022 Coronary artery disease involving [place] coronary artery 08/09/2022 Oropharyngeal dysphagia 08/09/2022 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[facility]) 08/09/2022 Respiratory failure, unspecified, unspecified whether with hypoxia or hypercapnia ([facility]) 06/28/2022 Gastrostomy status ([facility]) 06/28/2022 Respiratory failure ([facility]) 06/28/2022 Malignant neoplasm of liver, primary, unspecified as to type ([facility]) 04/22/2022 Left foot drop 03/28/2022 Hypothyroidism, unspecified 03/20/2022 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[facility]) 03/20/2022 Essential (primary) hypertension 01/06/2022 HCC (hepatocellular carcinoma) ([facility]) 09/29/2021 Hepatocellular carcinoma ([facility]) 09/29/2021 Benign essential hypertension 09/23/2021 Constipation 09/23/2021 Diaphragmatic hernia without obstruction or gangrene 09/23/2021 Gastroesophageal reflux disease without esophagitis 09/23/2021 History of cerebrovascular accident with residual deficit 09/23/2021 Hypothyroidism 09/23/2021 Vitamin B12 deficiency (non anemic) 09/23/2021 Autoimmune hepatitis ([facility]) 09/23/2021 Unspecified cirrhosis of liver ([facility]) 09/23/2021 Diaphragmatic hernia 09/23/2021 History of cerebrovascular accident with residual deficit 09/23/2021 Vitamin B12 deficiency without anemia 09/23/2021 Visual loss 07/21/2021 Visual impairment 07/21/2021 Chronic autoimmune hepatitis ([facility]) 06/08/2021 Unspecified hearing loss, unspecified ear 07/22/2019 Hearing loss 07/22/2019 Athscl heart disease of [place] coronary artery w/o ang pctrs 06/19/2019 Gastro-esophageal reflux disease without esophagitis 06/19/2019 Dvrtclos of intest, part unsp, w/o perf or 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 ALLERGIES: Cefepime and Oxycodone Objective Vitals There were no vitals filed for this [...] adjusted Hx Disseminated Aspergillosis S/p Liver Transplant HTN Plan: HFrEF ICM LVEF 45% on TTE 06/2023, TTE pending. Continue Carvedilol, Furosemide, Also on Lokelma Stop Valsartan Trial Entresto 24/26mg bid with hold parameter for SBP < 120 with check of blood pressure bid ortwice daily. CAD s/p PCI RCA and LAD continue ASA and Statin and BB HLD, LDL 34, continue statin Episodic Hypotension hypertensive in clinic SBP 170s. Home blood pressures as follows: 07/03 166/103 07/04 123/83 07/05 149/84 Will change to Entresto 24/26mg bid with hold parameter as above And discontinue Valsartan Patient is concerned for cost, will consult Ambulatory assistance through [facility]. Patient to call with low Bps, symptoms and to go to ER if near syncopal S/p Liver Transplant, follows with Hepatology. On Cellcept, Prednisone, Cyclosporine Disseminated Aspergillosis per ID Plan Stop Valsartan due to HFmrEF and elevated blood pressures Start Entresto with hold parameters of SBP < 120 with blood pressure check prior to each dose Ambulatory referral for med access as medication is cost prohibitive per the patient's . Time 20 minutes Addendum Called the patient to followup on on blood pressures on Entresto low dose with hold parameter of less than 120 systolic. Reports doing well and good activity tolerance. Bps 124-157/85-95 day two. Reviewed hold parameters. No current complaints or concerns. Patient to call with any concerns. Addendum Patient reports SBP 140-150s on Entresto 24/26 mg twice daily. He has been taking SL NTG for HTN. Advised him not to do this. NTG is not prescribed at . Advised him to only take for chest pain and as directed.Will increase Entresto to 1/2 tablets bid and check BP HR and record for one week. Will continue hold parameter of SBP less than 120 to avoid hypotension. Beth Crowe DNP Advanced Heart Failure Cardiology .Addendum NT pro bnp is improved with increased in ARNI with hold parameters. Beth Crowe DNP Advanced Heart Failure Cardiology documented in this encounter Plan of Treatment Upcoming Encounters Date Type Department Care Team (Late st Contact Info) Description 10/10/2024 12:31 PM EDT Hospital Encounter [facility] [address] [place] [address] Enrike Mims MD [address] [place] [phone] 10/10/2024 12:31 PM EDT - 10/10/2024 2:01 PM EDT Surgery [facility] [address] [place] [phone] Enrike Mims MD [address] [place] [phone] ERCP Scheduled Procedures Name Priority Associated Diagnoses Date/Ti me 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 EDT Scheduled Referrals Name Type Priority Associated Diagnoses Order Schedule AMB referral for [facility] Medication Access Request Outpatient Referral Routine Chronic systolic heart failure (CMS-HCC) Ordered: 07/05/2024 documented as of this encounter Visit Diagnoses Diagnosis Chronic systolic heart failure (CMS-HCC)- Primary Chronic systolic heart failure Biliary stricture Obstruction of bile duct documented in this encounter Care Teams [employer] Renowned Chef [employer] Restaurant Owner Relationship Specialty Start Date End Date Amisha DominguezewDO [address] [address] [place] [address] PCP - General Internal Medicine 04/05/24 Samaria Price MD [facility] Hematology/[place] [phone] Medical Oncologist [facility] Medical Oncology 10/20/21 Jasmin Marshall, DRAFTER APPRENTICE [address] [place] [address] Hematology/[place] [phone] Nurse Practitioner [facility] Hematology and Oncology 10/20/21 Megan Tamez, MARCOS Nurse Clinician Medical Oncology 10/20/21 Junie Aggarwal, MARCOS Txp Post Coordinator Pathology Tech 10/14/22 Ese Johnson, NahunD Pharmacist Pharmacist 10/17/22 documented as of this encounter
--- OUTSIDE RECORDS SUMMARY | 2024-09-09 09:42 | XMS_ITS | Encounter Summary ---
Author Organization [facility] Address [address] [place] [address] Care Team Providers Care Energy Trader Name Role Phone Samaria Price MD Unavailable Jasmin Marshall CNP Unavailable [phone] Megan Tamez RN Unavailable Unavailable Delores BETTS MD, George Primary Care Provide r Vibha Irwin RN Unavailable Unavaila Natalie Gorodn RN Unavailable Unavailabl Kelli Rodriguez RN Unavailable Unavail able Junie Aggarwal RN Unavailable Unava ilable Ese Johnson PharmD Unavailable Zaria vailable Carlos Dominguez DO Primary Care Provider [phone] Source Comments This information has been disclosed [...] release of HIV test results or diagnoses. [id number] Encounter Details Date Type Department Care Team (Late st Contact Info) Description 08/01/2022 Ophth Exam [facility] Ophthalmology at [facility] [address] [facility] [address] [place] [address] Shawn Butler MD Social History Tobacco Use Types Packs/Day Years Used Date Smoking Tobacco: Never Smokeless Tobacco: Never Alcohol Use Standard Drinks/Week Comments Never 0 (1 standard drink = 0.6 oz pur e alcohol) AUDIT-C Answer Date Recorded Q1: How often do you have a drink containing alcohol? Never 06/28/2022 Q2: How many drinks containi ng alcohol do you have on a typical day when you are drinking? Patient does not drink Q3: How often do you have si x or more drinks on one occasion? Never 06/28/2022 PHQ-2 Answer Date Recorded PHQ-2 Total Score 0 05/20/2022 Sex and Gender Information Value Date Recorded Sex Assigned at Male 06/06/2021 6:51 PM EDT Legal Sex Male 3:36 PM EST Gender Identity Male 06/06/2021 6:51 PM EDT Sexual Orientation Not on file documented as of this encounter Plan of Treatment Upcoming Encounters Date Type Department Care Team (Late st Contact Info) Description 10/10/2024 12:31 PM EDT Hospital Encounter [facility] ENDOSCOPY [address] [place] [phone] Enrike Mims MD [address] [place] [phone] 10/10/2024 12:31 PM EDT - 10/10/2024 2:01 PM EDT Surgery [facility] ENDOSCOPY [address] [place] [phone] Enrike Mims MD [address] [place] [phone] ERCP Scheduled Procedures Name Priority Associated Diagnoses Date/Ti me 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 difficile 08/06/2022 08/06/20222022 4:16 PM EDT Rule Out COVID-19 08/09/2022 08/09/2022 08/10/2022 3:06 AM EDT Rule Out COVID-19 08/16/2022 08/16/2022 08/17/2022 3:06 AM EDT Rule Out COVID-19 08/24/2022 08/24/2022 08/24/2022 8:28 PM EDT Rule Out COVID-19 01/30/2023 01/31/2023 01/31/2023 5:22 AM EST Rule Out COVID-19 03/27/2023 03/27/2023 03/27/2023 2:53 PM EST Rule Out COVID-19 04/11/2023 04/11/2023 04/12/2023 2:40 AM EST Rule Out COVID-19 04/12/2023 04/12/2023 04/12/2023 1:01 PM EST documented as of this encounter Care Teams Energy Trader Relationship Specialty Start Date End Date Leo Estrella III, MD [address] [place] [address] PCP - General Family Medicine 12/22/21 04/04/24 Carlos Dominguez DO [address] [place] [address] [place] [address] PCP - General Internal Medicine 04/05/24 Samaria Price MD [address] [place] [address] Hematology/[place] [phone] Medical Oncologist [facility] Medical Oncology 10/20/21 Jasmin Marshall CASEWORKER PROTECTIVE SERVICES [address] [facility] Hematology/[place] [address] Nurse Practitioner [facility] Hematology and Oncology 10/20/21 Megan Tamez, RN Nurse Clinician Medical Oncology 10/20/21 Vibha Irwin, RN Nurse Navigator Gastrointestinal Oncology 01/14/22 3 Natalie Harp, MARCOS Txp Post Coordinator Product Development Scientist 07/05/2209/05 Kelli Castillo, MARCOS Txp Post Coordinator 09/06/22 11/21/22 Junie Aggarwal, RN Txp Post Coordinator Product Development Scientist 10/14/22 Ese Johnson, PharmD Pharmacist Pharmacist 10/17/22 documented as of this encounter
--- OUTSIDE RECORDS SUMMARY | 2024-09-09 09:42 | XMS_ITS | Encounter Summary ---
Author Organization [facility] Address [address] [place] [address] Care Team Providers Care Pelts Skinner Name Role Phone Samaria Price MD Unavailable Jasmin Marshall CNP Unavailable [phone] Megan Tamez RN Unavailable Unavailable Junie Aggarwal RN Unavailable Unava ilable Ese Johnson PharmD Unavailable Zaria vailable Carlos Dominguez DO Primary Care Provider [phone] Source Comments This information has been disclosed [...] release of HIV test results or diagnoses. [id number] Reason for Visit * Reason Comments Medical Management Plan of Care Inquiry /Question Encounter Details Date Type Department Care Team (Late st Contact Info) Description 08/14/2024 Telephone [facility] Advanced Heart Failure at [facility] Office [address] [facility] [address] [place] [phone] Beth Crowe DNP [address] [facility] [place] [address] Medical Management (Plan of Care Inquiry/Question ) Social History Tobacco Use Types Packs/Day Years [...] encounter Miscellaneous Notes * Telephone Encounter - Constanza Meléndez MA - 08/14/2024 9:26 AM EDT Pts called to speak with DNP regarding Entresto and Pts blood pressure ranges. Please call [phone] documented in this encounter Plan of Treatment Upcoming Encounters Date Type Department Care Team (Late st Contact Info) Description 10/10/2024 12:31 PM EDT Hospital Encounter [facility] ENDOSCOPY [address] [place] [address] Enrike Mims MD [address] [place] [phone] 10/10/2024 12:31 PM EDT - 10/10/2024 2:01 PM EDT Surgery [facility] ENDOSCOPY [address] [place] [phone] Enrike Mims MD [address] [place] [phone] ERCP Scheduled Procedures Name Priority Associated Diagnoses Date/Ti me 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 EDT documented as of this encounter Visit Diagnoses Not on filedocumented in this encounter Care Teams Pelts Skinner Relationship Specialty Start Date End Date Carlos Dominguez DO [address] [address] [place] [id number] PCP - General Internal Medicine 04/05/24 Samaria Price MD [facility] Hematology/[place] [address] Medical Oncologist [facility] Medical Oncology 10/20/21 Jasmin Marshall CNP [facility] Hematology/[place] [phone] Nurse Practitioner [facility] Hematology and Oncology 10/20/21 Megan Tamez, RN Nurse Clinician Medical Oncology 10/20/21 Junie Aggarwal, MARCOS Txp Post Coordinator Hospital Carrier 10/14/22 Ese Johnson, NahunD Pharmacist Pharmacist 10/17/22 documented as of this encounter
--- OUTSIDE RECORDS SUMMARY | 2024-09-09 09:42 | XMS_ITS | Encounter Summary ---
Author Organization [facility] Address [address] [place] [address] Care Team Providers Care Varnish Cooker Name Role Phone Samaria Price MD Unavailable Jasmin Marshall CNP Unavailable [phone] Megan Tamez RN Unavailable Unavailable Junie Aggarwal RN Unavailable Unava ilable Ese Johnson PharmD Unavailable Zaria vailable Carlos Dominguez DO Primary Care Provider [phone] Source Comments This information has been disclosed [...] release of HIV test results or diagnoses. [id number] Reason for Visit * Reason Comments Medication Management [facility]: Transplant Reassessment Encounter Details Date Type Department Care Team ([facility] st Contact Info) Description 07/22/2024 Telephone [facility] [address] [place] [address] Negrita Harris RPh Medication Management ([facility]: Transplant Reassessment) Social History Tobacco Use Types Packs/Day Years [...] place to sleep or slept in a skilled nursing (including now)? No 04/11/2023 Yearly Questionnaire Answer [...] encounter Miscellaneous Notes * Telephone Encounter - Negrita Harris RPh - 07/22/2024 2:15 PM EDT [facility]: Transplant Reassessment René Cornejo is a 74 y.o. 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, brain and eye Autoimmune hepatitis ([facility]) Benign prostatic hyperplasia Blindness of right eye Cancer ([facility] 2020 Liver transplant CHF (congestive heart failure) ([facility] [place]) Coronary artery disease 2013 Diverticulosis 2020 End stage liver disease ([facility]) s/p OLT GERD (gastroesophageal reflux disease) 1968 Caused by prednisone for my liver HCC (hepatocellular carcinoma) ([facility] [place]) Hearing loss 1984 connected some loss Heart failure ([facility]) 03/2023 Treated with meds High blood pressure 03/2020 Treated with medication High cholesterol Hypertension Hypothyroidism Myocardial infarction ([facility]) 03/2023 Osteoporosis 2022 Taking meds Stroke ([facility]) Transplant Type: Liver Transplant Date: 06/28/2022 Medication Reconciliation: Patient reported immunosuppressive regimen as: Cyclosporine modified 25mg twice daily Mycophenolate 250mg twice daily Prednisone 5mg daily (AIH) Patient reported prophylaxis regimen as: Posaconazole 300mg daily (invasive aspergillosis; indefinitely) New Meds/Medication Changes: lokelma - taking every other day per spouse Patient's prescription and non-prescription medications and natural supplements were reviewed with the patient's caregiver (- Aylin) by Negrita Harris RPh and medication list updated. Current Medications[1] Allergies[2] Medication list evaluated for clinically significant drug interactions, with the following noted: Cyclosporine-rosuvastatin: Myopathy and muscle aches, tenderness and weakness (rhabdomyolysis) may occur with concurrent administration of HMG-CoA reductase inhibitors and cyclosporine Cyclosporine-posaconazole: Concurrent administration of posaconazole or voriconazole may result in elevated levels of and toxicity from cyclosporine or temsirolimus Mycophenolate-pantoprazole: Concurrent use of proton pump inhibitors (PPIs) may result in decreasedmycophenolic acid levels and effects, including increased risk of transplant rejection Lab Results Component Value Date WBC 5.1 05/27/2024 HGB 11.0 (L) 05/27/2024 HCT 32.1 (L) 05/27/2024 MCV 93.3 05/27/2024 PLT 390 05/27/2024 Lab Results Component Value Date GLUCOSE 93 05/27/2024 BUN 29 (H) 05/27/2024 CREATININE 1.22 05/27/2024 K 4.4 05/27/2024 BCR 25.6 11/07/2022 PHOS 3.0 05/27/2024 ALBUMIN 3.7 05/27/2024 ALBUMIN 3.7 05/27/2024 EGFR 62 05/27/2024 Adherence & Counseling: Issues (if any) patient has had with taking medication as prescribed: none Assessment of patient's medication adherence: followed as prescribed Patient???s perception of effectiveness of medication therapy: positve perception Vaccines: received COVID-19 vaccine x3 in 2020 per chart review. Received last flu shot in January2024 Adverse Effects & Patient Issues: Assessment of occurrence of medication adverse effects: none Denies signs/symptoms of infection (fever,chills,new onset diarrhea/vomiting, shortness of breath, burning or pain with urination as applicable) Assessment of Patient's Therapy and Barriers: Assessment of continued appropriateness of therapy: appropriate Assessment of continued effectiveness of therapy: prevention of organ rejection and drug level monitoring Needs assessment: none identified Strategies to address needs: not applicable Treatment based on AASLD guidelines and 's liver transplant protocol Patient-Specific Care Plan (if applicable): Goal: prevent organ rejection through medication compliance Zero missed doses in last 30 days per who manages meds No episodes of rejection since last assessment Time Frame: lifelong (to be assessed annually) Resources available to implement care management plan: not applicable Patient's motivation: high Goal: maintain therapeutic cyclosporine trough concentrations (goal 50-100) Slightly supratherapeutic at 111.8 05/27/24 - no changes per provider given LFTs and other labs WNL (and on low dose) Time Frame: lifelong (to be assessed annually) Resources available to implement care management plan: not applicable Patient's motivation: high Follow-Up: Prescriptions will be filled by [facility]. Method of delivery: shipped via UPS by end of day 07/22/24. Patient should receive medication by 07/24/24. Reassessment due within 1 calendar year. Routed note to provider for review. NEGRITA HARRIS, [facility] [phone] (phone) 07/22/2024, 2:16 PM [1] Current Outpatient Medications Medication Sig Dispense Refill acetaminophen (TYLENOL) 325 MG tablet Take 2 tablets (650 mg total) by mouth every 6 hours as needed. Indications: Pain 200 tablet 1 aspirin 81 MG EC tablet Take 1 tablet (81 mg total) by mouth daily. 90 tablet 3 brimonidine (ALPHAGAN) 0.2 % ophthalmic solution INSTILL 1 DROP INTO RIGHT EYE THREE TIMES DAILY 10mL 0 calcium-vitamin D 500 mg-5 mcg (200 unit) per tablet Take 1 tablet by mouth 2 times a day with meals. Indications: osteoporosis 60 tablet 5 carvediloL (COREG) 3.125 MG tablet Take 1 tablet (3.125 mg total) by mouth 2 times a day. 180 tablet 3 cycloSPORINE modified (NEORAL/GENGRAF) 25 MG capsule Take 1 capsule (25 mg total) by mouth 2 times a day. 60 capsule 5 furosemide (LASIX) 20 MG tablet Take 1 tablet (20 mg total) by mouth daily as needed. As needed when you gain 5 lbs or notice swelling 180 tablet 2 levothyroxine (SYNTHROID) 88 MCG tablet Take 1.5 tablets (132 mcg total) by mouth daily. Indications: hypothyroidism (Patient taking differently: Take 88 mcg by mouth daily. Indications: hypothyroidism) mycophenolate (CELLCEPT) 250 mg capsule Take 1 capsule (250 mg total) by mouth 2 times a day. 60 capsule 5 ondansetron (ZOFRAN-ODT) 4 MG disintegrating tablet Dissolve 1 tablet (4 mg total) by mouth every 8hours as needed for Nausea. 90 tablet 0 pantoprazole (PROTONIX) 40 MG tablet Take 1 tablet (40 mg total) by mouth every morning before breakfast. Indications: heartburn 30 tablet 5 polyethylene glycol (GLYCOLAX) 17 gram/dose powder Dissolve 1 capful (17 g total) in 8 oz of liquidand drink by mouth 2 times a day. [address] (NOXAFIL) 100 mg TbEC Take 3 tablets (300 mg total) by mouth daily with breakfast. 90 tablet 5 prednisoLONE acetate (PRED FORTE) 1 % ophthalmic suspension Place 1 drop into the right eye 4 timesa day. 5 mL 1 predniSONE (DELTASONE) 5 MG tablet Take 1 tablet (5 mg total) by mouth daily. 30 tablet 5 rosuvastatin (CRESTOR) 5 MG tablet Take 1 tablet (5 mg total) by mouth daily. 90 tablet 1 sacubitriL-valsartan (ENTRESTO) 24-26 mg Tab Take 1 tablet by mouth 2 times a day. Check blood pressure before each dose. Hold one dose for systolic blood pressure less than 120. 180 tablet 1 sodium zirconium cyclosilicate (LOKELMA) 5 gram PwPk Empty entire contents of one packet (5 g) intoa glass of water with at least 45 mL of water and drink once daily. Stir well and drink immediately. SEPARATE FROM OTHER MEDICATIONS BY 2 HOURS BEFORE AND AFTER. (Patient taking differently: Take 5 gby mouth every other day.) 30 packet 5 timolol (TIMOPTIC) 0.5 % ophthalmic solution INSTILL 1 DROP INTO RIGHT EYE TWICE DAILY 10 mL 10 No current facility-administered medications for this visit. [2] Allergies Allergen Reactions Cefepime Other (See Comments) Encephalopathy with myoclonus Other Reaction(s): Other (See Comments) Oxycodone Itching Delirious documented in this encounter Plan of Treatment Upcoming Encounters Date Type Department Care Team (Late st Contact Info) Description 10/10/2024 12:31 PM EDT Hospital Encounter [facility] ENDOSCOPY [address] [place] [phone] Enrike Mims MD [address] [place] [phone] 10/10/2024 12:31 PM EDT - 10/10/2024 2:01 PM EDT Surgery [facility] ENDOSCOPY [address] [place] [phone] Enrike Mims MD [address] [place] [phone] ERCP Scheduled Procedures Name Priority Associated Diagnoses Date/Ti il 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 EDT documented as of this encounter Visit Diagnoses Not on filedocumented in this encounter Care Teams Varnish Cooker Relationship Specialty Start Date End Date Carlos Dominguez DO [address], [place] [address] [place] [address] PCP - General Internal Medicine 04/05/24 Samaria Price MD [address] [place] [address] Hematology/[place] [phone] Medical Oncologist [facility] Medical Oncology 10/20/21 Jasmin Marshall CITY SUPERINTENDENT [address] [place] [address] Hematology/[place] [phone] Nurse Practitioner [facility] Hematology and Oncology 10/20/21 Megan Tamez, MARCOS Nurse Clinician Medical Oncology 10/20/21 Junie Aggarwal, MARCOS Txp Post Coordinator Call Or Contact Centre Operator 10/14/22 Ese Johnson, PharmD Pharmacist Pharmacist 10/17/22 documented as of this encounter
--- OUTSIDE RECORDS SUMMARY | 2024-09-09 09:42 | XMS_ITS | Encounter Summary ---
Author Organization [facility] Address [address] [place] [address] Care Team Providers Care Laundry Room Attendant Name Role Phone Samaria Price MD Unavailable Jasmin Marshall CNP Unavailable [phone] Megan Tamez RN Unavailable Unavailable Delores BETTS MD, George Primary Care Provide r Vibha Irwin RN Unavailable Unavaila Natalie Gordon RN Unavailable Unavailabl Kelli Rodriguez RN Unavailable Unavail able Junie Aggarwal RN Unavailable Unava ilable Ese Johnson PharmD Unavailable Zaria vailable Carlos Dominguez DO Primary Care Provider [phone] Source Comments This information has been disclosed [...] release of HIV test results or diagnoses. [id number] Encounter Details Date Type Department Care Team (Late st Contact Info) Description 08/06/2022 Ophth Exam [facility] Ophthalmology at [facility] [address] [facility] [address] [place] [phone] Letty Rey MD Social History Tobacco Use Types Packs/Day Years Used Date Smoking Tobacco: Never Smokeless Tobacco: Never Alcohol Use Standard Drinks/Week Comments Never 0 (1 standard drink = 0.6 oz pur e alcohol) AUDIT-C Answer Date Recorded Q1: How often do you have a drink containing alcohol? Never 08/09/2022 Q2: How many drinks containi ng alcohol do you have on a typical day when you are drinking? Patient does not drink Q3: How often do you have si x or more drinks on one occasion? Never 08/09/2022 PHQ-2 Answer Date Recorded PHQ-2 Total Score 0 05/20/2022 Sex and Gender Information Value Date Recorded Sex Assigned at Male 06/06/2021 6:51 PM EDT Legal Sex Male 3:36 PM EST Gender Identity Male 06/06/2021 6:51 PM EDT Sexual Orientation Not on file documented as of this encounter Functional Status * Audit-C Score Answer Date of Assessment Author 0 08/09/2022 10:23 PM EDT Amy Whitaker RN * Question Answer Date of Assessment Author Q1: How often do you have a drink containing alcohol? Never 08/09/2022 10:23 PM CHARLEST Neptali Whitaker RN Q2: How many drinks containing alcohol do you have on a typical day when you are drinking? Patient does not drink 08/09/2022 10:23 PM EDT Neptali Whitaker RN Q3: How often do you have six or more drinks on one occasion? Never 08/09/2022 10:23 PM EDT Neptali Whitaker RN documented as of this encounter Plan of Treatment Upcoming Encounters Date Type Department Care Team (Late st Contact Info) Description 10/10/2024 12:31 PM EDT Hospital Encounter [facility] ENDOSCOPY [address] [place] [phone] Enrike Mims MD [address] [place] [phone] 10/10/2024 12:31 PM EDT - 10/10/2024 2:01 PM EDT Surgery [facility] ENDOSCOPY [address] [place] [address] Enrike Mims MD [address] [place] [phone] ERCP Scheduled Procedures Name Priority Associated Diagnoses Date/Ti me 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 difficile 08/06/2022 08/06/20222022 4:16 [...] documented as of this encounter Care Teams Laundry Room Attendant Relationship Specialty Start Date End Date Leo Estrella III, MD [address] [place], [place] [id number] PCP - General Family Medicine 12/22/21 04/04/24 Carlos Dominguez DO [address] [address] [address] [address] PCP - General Internal Medicine 04/05/24 Samaria Price MD [facility] Hematology/[place] [phone] Medical Oncologist [facility] Medical Oncology 10/20/21 Jasmin Marshall, FIRE SUPPORT SPECIALIST [facility] Hematology/[place] [phone] Nurse Practitioner [facility] Hematology and Oncology 10/20/21 Megan Tamez, RN Nurse Clinician Medical Oncology 10/20/21 Vibha Irwin, RN Nurse Navigator Gastrointestinal Oncology 01/14/22 3 Natalie Harp, MARCOS Txp Post Coordinator Bunker Worker 07/05/2209/05 Kelli Castillo, RN Txp Post Coordinator 09/06/22 11/21/22 Junie Aggarwal, RN Txp Post Coordinator Bunker Worker 10/14/22 Ese Johnson, PharmD Pharmacist Pharmacist 10/17/22 documented as of this encounter
--- OUTSIDE RECORDS SUMMARY | 2024-09-09 09:42 | XMS_ITS | Encounter Summary ---
Author Organization [facility] Address [address] [place] [address] Care Team Providers Care Soldering Machine Feeder Name Role Phone Samaria Price MD Unavailable Jasmin Marshall CNP Unavailable [phone] Megan Tamez RN Unavailable Unavailable Junie Aggarwal RN Unavailable Unava ilable Ese Johnson PharmD Unavailable Zaria vailable Carlos Dominguez DO Primary Care Provider [phone] Source Comments This information has been disclosed [...] release of HIV test results or diagnoses. [id number] [facility] Reason for Visit * Reason Comments Medication Refill Encounter Details Date Type Department Care Team (Late st Contact Info) Description 06/19/2024 Refill [facility] Ophthalmology at [facility] [address] [facility] [address] [place] [phone] Kolton Martinez MD [address] [place] [address] S/P liver transplant ([facility]); Immunosuppression ([facility]) Social History Tobacco Use Types Packs/Day Years [...] Description 10/10/2024 12:31 PM EDT Hospital Encounter [facility] ENDOSCOPY [address] [place] [address] Enrike Mims MD [address] [place] [address] 10/10/2024 12:31 PM EDT - 10/10/2024 2:01 PM EDT Surgery [facility] ENDOSCOPY [address] [place] [address] Enrike Mims MD [address] [place] [phone] ERCP Scheduled Procedures Name Priority Associated Diagnoses Date/Ti me 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 EDT documented as of this encounter Visit Diagnoses Diagnosis S/P liver transplant (CMS-HCC) Immunosuppression (CMS-HCC) Biliary stricture Obstruction of bile duct documented in this encounter Care Teams Soldering Machine Feeder Relationship Specialty Start Date End Date Carlos Dominguez DO [address] [place] [address] [address] [id number] PCP - General Internal Medicine 04/05/24 Samaria Price MD [address] [facility] Hematology/[place] [phone] Medical Oncologist [facility] Medical Oncology 10/20/21 Jasmin Marshall, ENGINEERING COORDINATOR [address] [facility] Hematology/[place] [phone] Nurse Practitioner [facility] Hematology and Oncology 10/20/21 Megan Tamez, RN Nurse Clinician Medical Oncology 10/20/21 Junie Aggarwal, MARCOS Txp Post Coordinator Felt Cutting Machine Operator 10/14/22 Ese Johnson, PharmD Pharmacist Pharmacist 10/17/22 documented as of this encounter
--- OUTSIDE RECORDS SUMMARY | 2024-09-09 09:42 | XMS_ITS | Clinical Summary ---
Author Organization [facility] Address [address] [place] [address] Care Team Providers Care Certified Wellness Program Coordinator Name Role Phone Leo Estrella MD Primary Care Provid er Social History Tobacco Use Types Packs/Day Years Used Date Smoking Tobacco: Former Sex and Gender Information Value Date Recorded Sex Assigned at Not on file Legal Sex Male 8:52 PM EDT Gender Identity Not on file Sexual Orientation Not on file Last Filed Vital Signs Vital Sign Reading Time Taken Comments Blood Pressure - - Pulse - - Temperature - - Respiratory Rate - - Oxygen Saturation - - Inhaled Oxygen Concentration - - Weight 84.9 kg (187 lb 3.1 oz) 08/14/2014 2:10 P M EDT Height 172.7 cm (5' 8 ) 08/14/2014 2:10 PM EDT Body Mass Index 28.46 08/14/2014 2:10 PM EDT Plan of Treatment Not on file Care Teams Certified Wellness Program Coordinator Relationship Specialty Start Date End Date Leo Estrella MD [address] [place] [address] PCP - General 07/31/20
--- OUTSIDE RECORDS SUMMARY | 2024-09-09 09:42 | XMS_ITS | Encounter Summary ---
Author Organization [facility] Address [address] [place] [address] Care Team Providers Care Firmware Architect Name Role Phone Samraia Price MD Unavailable Jasmin Marshall CNP Unavailable [phone] Megan Tamez RN Unavailable Unavailable Delores BETTS MD, George Primary Care Provide r Vibha Irwin RN Unavailable Unavaila Natalie Gordon RN Unavailable Unavailabl Kelli Rodriguez RN Unavailable Unavail able Junie Aggarwal RN Unavailable Unava ilable Ese Johnson PharmD Unavailable Zaria vailable Carlos Dominguez DO Primary Care Provider [phone] Source Comments This information has been disclosed [...] release of HIV test results or diagnoses. [id number] Encounter Details Date Type Department Care Team (Late st Contact Info) Description 08/02/2022 Ophth Exam [facility] [address] [place] [address] Lisa Rm MD [address] [place] [address] Social History Tobacco Use Types Packs/Day Years [...] 12:31 PM EDT Hospital Encounter [facility] ENDOSCOPY [address] [place] [phone] Enrike Mims MD [address] [place] [phone] 10/10/2024 12:31 PM EDT - 10/10/2024 2:01 PM EDT Surgery [facility] ENDOSCOPY [address] [place] [phone] Enrike Mims MD [address] [place] [phone] ERCP Scheduled Procedures Name Priority Associated Diagnoses Date/Ti me 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 EDT documented as of this encounter Visit Diagnoses Not on filedocumented in this encounter Additional Health Concerns Infection Onset Date Last Indicated Resolved Time Rule Out Tuberculosis 08/02/2022 08/02/20222022 12:05 PM [...] documented as of this encounter Care Teams Firmware Architect Relationship Specialty Start Date End Date Leo Estrella III, MD [address] [place] [address] PCP - General Family Medicine 12/22/21 04/04/24 Carlos Dominguez DO [address] [facility], [place] [address] [place] [address] PCP - General Internal Medicine 04/05/24 Samaria Price MD [address] [place] [address] Hematology/[place] [phone] Medical Oncologist [facility] Medical Oncology 10/20/21 Jasmin Marshall WATCH AND CLOCK REPAIR CLERK [address] [facility] Hematology/[place] [phone] Nurse Practitioner [facility] Hematology and Oncology 10/20/21 Megan Tamez, RN Nurse Clinician Medical Oncology 10/20/21 Vibha Irwin, MARCOS Nurse Navigator Gastrointestinal Oncology 01/14/22 3 Natalie Harp, RN Txp Post Coordinator Oncology Physician 07/05/2209/05 Kelli Castillo, RN Txp Post Coordinator 09/06/22 11/21/22 Junie Aggarwal, MARCOS Txp Post Coordinator Oncology Physician 10/14/22 Ese Johnson, PharmD Pharmacist Pharmacist 10/17/22 documented as of this encounter
--- OUTSIDE RECORDS SUMMARY | 2024-09-09 09:42 | XMS_ITS | Encounter Summary ---
Author Organization [facility] Address [address] [place] [address] Care Team Providers Care Herbicide Sprayer Name Role Phone Samaria Price MD Unavailable Jasmin Marshall CNP Unavailable [phone] Megan Tamez RN Unavailable Unavailable Junie Aggarwal RN Unavailable Unava ilable Ese Johnson PharmD Unavailable Zaria vailable Carlos Dominguez DO Primary Care Provider [phone] Source Comments This information has been disclosed [...] release of HIV test results or diagnoses. [id number] Health Encounter Details Date Type Department Care Team (Late st Contact Info) Description 07/26/2024 Orders Only [facility] Liver Transplant at [address] [phone] Kolton Martinez MD [address] [place] [address] Social History Tobacco Use Types [...] Description 10/10/2024 12:31 PM EDT Hospital Encounter [facility] ENDOSCOPY [address] [place] [phone] Enrike Mims MD [address] [place] [phone] 10/10/2024 12:31 PM EDT - 10/10/2024 2:01 PM EDT Surgery [facility] ENDOSCOPY [address] [place] [phone] Enrike Mims MD [address] [place] [phone] ERCP Scheduled Procedures Name Priority Associated Diagnoses Date/Ti me 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 EDT documented as of this encounter Visit Diagnoses Not on filedocumented in this encounter Care Teams Herbicide Sprayer Relationship Specialty Start Date End Date Carlos Dominguez DO [address] [place] [address] [address] [id number] PCP - General Internal Medicine 04/05/24 Samaria Price MD [address] [place] [address] Hematology/[place] [phone] Medical Oncologist [facility] Medical Oncology 10/20/21 Jasmin Marshall RESPIRATORY THERAPY DIRECTOR [facility] Hematology/[place] [phone] Nurse Practitioner [facility] Hematology and Oncology 10/20/21 Megan Tamez, MARCOS Nurse Clinician Medical Oncology 10/20/21 Junie Aggarwal, MARCOS Txp Post Coordinator Superannuation Funds Manager 10/14/22 Ese Johnson, PharmD Pharmacist Pharmacist 10/17/22 documented as of this encounter
--- OUTSIDE RECORDS SUMMARY | 2024-09-09 09:42 | XMS_ITS | Encounter Summary ---
Author Organization [facility] Address [address] [place] [address] Care Team Providers Care Manager Market Intelligence Name Role Phone Samaria Price MD Unavailable Jasmin Marshall CNP Unavailable [phone] Megan Tamez RN Unavailable Unavailable Junie Aggarwal RN Unavailable Unava ilable Ese Johnson PharmD Unavailable Zaria vailable Carlos Dominguez DO Primary Care Provider [phone] Source Comments This information has been disclosed [...] release of HIV test results or diagnoses. 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[facility]) History of falling H/O fracture [facility] Liver Transplant at [address] [address] Phone: tel: fax: Referral ID Status Reason Start Date Expiration Date V isits Requested Visits Authorized [id number] New Request 07/24/2024 01/20/2025 1 1 Reason for Visit * Reason Comments Advice Only Encounter Details Date Type Department Care Team (Late st Contact Info) Description 07/24/2024 Telephone [facility] Liver Transplant at [facility] [address] [facility] [address] [place] [address] Junie Aggarwal, retail planner Only Social History Tobacco Use Types Packs/Day Years [...] place to sleep or slept in a halfway (including now)? No 04/11/2023 Yearly Questionnaire Answer [...] Telephone Encounter - Junie Aggarwal RN - 07/24/2024 7:51 PM EDT SO LVM requesting a new order for PT/OT. SO states current order does not specify expectation of ambulation with a cane. Pt has improved with PT/OT and wants to continue to be able to ambulate with acane. SO spoke to PT and they said they could continue therapy with a new order specifying goal of ambulation independently with cane. RN will place new HHC/PT/OT orders as requested. documented in this encounter Plan of Treatment Upcoming Encounters Date Type Department Care Team (Late st Contact Info) Description 10/10/2024 12:31 PM EDT Hospital Encounter [facility] ENDOSCOPY [address] [place] [address] Enrike Mims MD [address] [place] [address] 10/10/2024 12:31 PM EDT - 10/10/2024 2:01 PM EDT Surgery [facility] ENDOSCOPY [address] [place] [phone] Enrike Mims MD [address] [place] [phone] ERCP Scheduled Procedures Name Priority Associated Diagnoses Date/Ti me 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 EDT Scheduled Referrals Name Type Priority Associated Diagnoses Orde r Schedule Home Health Outpatient Referral Routine S/P liver transplant ([facility]) Left foot drop 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[facility]) History of falling H/O fracture Ordered: 07/24/2024 documented as of this encounter Visit Diagnoses Diagnosis S/P liver transplant (CMS-HCC)- Primary Left foot drop Other acquired deformity of ankle and foot 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CMS-HCC) Aspergillosis History of falling H/O fracture Biliary stricture Obstruction of bile duct documented in this encounter Care Teams Manager Market Intelligence Relationship Specialty Start Date End Date Carlos Dominguez DO [address], [place] [address] [place] [address] PCP - General Internal Medicine 04/05/24 Samaria Price MD [address] [place] [address] Hematology/[place] [address] Medical Oncologist [facility] Medical Oncology 10/20/21 Jasmin Marshall CNP [address] [place] [address] Hematology/[place] [address] Nurse Practitioner [facility] Hematology and Oncology 10/20/21 Megan Tamez, RN Nurse Clinician Medical Oncology 10/20/21 Junie Aggarwal, RN Txp Post Coordinator Electromatic Typist 10/14/22 Ese Johnson, NahunD Pharmacist Pharmacist 10/17/22 documented as of this encounter
--- OUTSIDE RECORDS SUMMARY | 2024-09-09 09:42 | XMS_ITS | Encounter Summary ---
Author Organization [facility] Address [facility] [place] [address] Care Team Providers Care Call Center Supervisor Name Role Phone Samaria Price MD Unavailable Jasmin Marshall CNP Unavailable [phone] Megan Tamez RN Unavailable Unavailable Delores BETTS MD, George Primary Care Provide r Vibha Irwin RN Unavailable Unavaila Natalie Gordon RN Unavailable Unavailabl Kelli Rodriguez RN Unavailable Unavail able Junie Aggarwal RN Unavailable Unava ilable Ese Johnson PharmD Unavailable Zaria vailable Carlos Dominguez DO Primary Care Provider [phone] Source Comments This information has been disclosed [...] release of HIV test results or diagnoses. [id number] Encounter Details Date Type Department Care Team (Late st Contact Info) Description 08/15/2022 Orders Only [facility] Radiology [address] [place] [phone] Robert Phelps, RT Social History Tobacco Use Types Packs/Day Years Used Date Smoking Tobacco: Never Smokeless Tobacco: Never Alcohol Use Standard Drinks/Week Comments Never 0 (1 standard drink = 0.6 oz pur e alcohol) AUDIT-C Answer Date Recorded Q1: How often do you have a drink containing alcohol? Never 08/16/2022 Q2: How many drinks containi ng alcohol do you have on a typical day when you are drinking? Patient does not drink Q3: How often do you have si x or more drinks on one occasion? Never 08/16/2022 PHQ-2 Answer Date Recorded PHQ-2 Total Score 0 05/20/2022 Sex and Gender Information Value Date Recorded Sex Assigned at Male 06/06/2021 6:51 PM EDT Legal Sex Male 3:36 PM EST Gender Identity Male 06/06/2021 6:51 PM EDT Sexual Orientation Not on file documented as of this encounter Functional Status * Audit-C Score Answer Date of Assessment Author 0 08/15/2022 9:45 AM EDT Vanessa Pulido RN * Question Answer Date of Assessment Author Q1: How often do you have a drink containing alcohol? Never 08/16/2022 7:50 PM EDT Christy Robles RN Q2: How many drinks containing alcohol do you have on a typical day when you are drinking? Patient does not drink 08/16/2022 7:50 PM EDT Christy Robles RN Q3: How often do you have six or more drinks on one occasion? Never 08/15/2022 9:45 AM EDT Jessica Pulido RN documented as of this encounter Plan of Treatment Upcoming Encounters Date Type Department Care Team (Late st Contact Info) Description 10/10/2024 12:31 PM EDT Hospital Encounter [facility] ENDOSCOPY [address] [place] [address] Enrike Mims MD [address] [place] [phone] 10/10/2024 12:31 PM EDT - 10/10/2024 2:01 PM EDT Surgery [facility] ENDOSCOPY [address] [place] [phone] Enrike Mims MD [address] [place] [phone] ERCP Scheduled Procedures Name Priority Associated Diagnoses Date/Ti me 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 EDT documented as of this encounter Visit Diagnoses Not on filedocumented in this encounter Additional Health Concerns Infection Onset Date Last Indicated Resolved Time Rule Out COVID-19 08/16/2022 08/16/2022 08/17/2022 3:06 AM EDT Rule Out COVID-19 08/24/2022 08/24/2022 08/24/2022 8:28 PM EDT Rule Out COVID-19 01/30/2023 01/31/2023 01/31/2023 5:22 AM EST Rule Out COVID-19 03/27/2023 03/27/2023 03/27/2023 2:53 PM EST Rule Out COVID-19 04/11/2023 04/11/2023 04/12/2023 2:40 AM EST Rule Out COVID-19 04/12/2023 04/12/2023 04/12/2023 1:01 PM EST documented as of this encounter Care Teams Call Center Supervisor Relationship Specialty Start Date End Date Leo Estrella III, MD [address] [place], [place] [id number] PCP - General Family Medicine 12/22/21 04/04/24 Carlos Dominguez DO [address] [address] [place] [address] PCP - General Internal Medicine 04/05/24 Samaria Price MD [address] [place] [address] Hematology/[place] [phone] Medical Oncologist [facility] Medical Oncology 10/20/21 Jasmin Marshall, BIOLOGICAL TECHNICIAN [facility]8 [facility] Hematology/[place] [address] Nurse Practitioner [facility] Hematology and Oncology 10/20/21 Megan Tamez, RN Nurse Clinician Medical Oncology 10/20/21 Vibha Irwin, MARCOS Nurse Navigator Gastrointestinal Oncology 01/14/22 3 Natalie Harp, RN Txp Post Coordinator Spray Foam Installer 07/05/2209/05 Kelli Castillo, RN Txp Post Coordinator 09/06/22 11/21/22 Junie Aggarwal, RN Txp Post Coordinator Spray Foam Installer 10/14/22 Ese Johnson, NahunD Pharmacist Pharmacist 10/17/22 documented as of this encounter
--- OUTSIDE RECORDS SUMMARY | 2024-09-09 09:42 | XMS_ITS | Encounter Summary ---
Author Organization [facility] [place] [facility] Address [address] [place] [address] Care Team Providers Care Polysomnographer Name Role Phone Samaria Price MD Unavailable Jasmin Marshall CNP Unavailable [phone] Megan Tamez RN Unavailable Unavailable Junie Aggarwal RN Unavailable Unava ilable Ese Johnson PharmD Unavailable Zaria vailable Carlos Dominguez DO Primary Care Provider [phone] Source Comments This information has been disclosed [...] release of HIV test results or diagnoses. [id number] Health Encounter Details Date Type Department Care Team (Late st Contact Info) Description 08/14/2024 Orders Only [facility] Advanced Heart Failure at [facility] [address] [facility] [address] [place] [phone] Beth Crowe, JORGE L [address] [place] [address] Social History Tobacco Use Types [...] Description 10/10/2024 12:31 PM EDT Hospital Encounter [facility] ENDOSCOPY [address] [place] [phone] Enrike Mims MD [address] [place] [address] 10/10/2024 12:31 PM EDT - 10/10/2024 2:01 PM EDT Surgery [facility] ENDOSCOPY [address] [place] [phone] Enrike Mims MD [address] [place] [phone] ERCP Scheduled Procedures Name Priority Associated Diagnoses Date/Ti me 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 EDT documented as of this encounter Visit Diagnoses Not on filedocumented in this encounter Care Teams Polysomnographer Relationship Specialty Start Date End Date Carlos Dominguez DO [address] [place] [address] [place] [id number] PCP - General Internal Medicine 04/05/24 Samaria Price MD [address] [place] [address] Hematology/[place] [phone] Medical Oncologist [facility] Medical Oncology 10/20/21 Jasmin Marshall, FISHER [facility] Hematology/[place] [phone] Nurse Practitioner [facility] Hematology and Oncology 10/20/21 Megan Tamez, RN Nurse Clinician Medical Oncology 10/20/21 Junie Aggarwal, MARCOS Txp Post Coordinator Claims Attorney 10/14/22 Ese Johnson, PharmD Pharmacist Pharmacist 10/17/22 documented as of this encounter
--- OUTSIDE RECORDS SUMMARY | 2024-09-09 09:42 | XMS_ITS | Encounter Summary ---
Author Organization [facility] Address [address] [place] [address] Care Team Providers Care Layer Up Name Role Phone Samaria Price MD Unavailable Jasmin Marshall CNP Unavailable [phone] Megan Tamez RN Unavailable Unavailable Junie Aggarwal RN Unavailable Unava ilable Ese Johnson PharmD Unavailable Zaria vailable Carlos Dominguez DO Primary Care Provider [phone] Source Comments This information has been disclosed [...] release of HIV test results or diagnoses. [id number] Health Reason for Visit * Reason Comments Advice Only Encounter Details Date Type Department Care Team (Late st Contact Info) Description 07/30/2024 Telephone [facility] Liver Transplant at [address] [place] [address] Junie Aggarwal, agricultural purchasing agent Only Social History Tobacco Use Types Packs/Day [...] place to sleep or slept in a snf (including now)? No 04/11/2023 Yearly Questionnaire Answer [...] on file documented as of this encounter Progress Notes * Liya Arreguin MA - 07/30/2024 3:59 PM EDT Spoke to Pt and advised Nitrofurantoin medication is safe for Pt to take. Pt verbalized understanding. documented in this encounter Miscellaneous Notes * Telephone Encounter - Junie Aggarwal RN - 07/30/2024 3:37 PM EDT SO called to see if Nitrofurantoin was safe to take from a liver transplant perspective as it was prescribed to Pt for recurrent UTI. This medication is safe to take. RN requested Liya DOW follow-up with SO and relay information. documented in this encounter Plan of Treatment Upcoming Encounters Date Type Department Care Team (Late st Contact Info) Description 10/10/2024 12:31 PM EDT Hospital Encounter [facility] ENDOSCOPY [address] [place] [phone] Enrike Mims MD [address] [place] [phone] 10/10/2024 12:31 PM EDT - 10/10/2024 2:01 PM EDT Surgery [facility] ENDOSCOPY [address] [place] [phone] Enrike Mims MD [address] [place] [address] ERCP Scheduled Procedures Name Priority Associated Diagnoses Date/Ti ct 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 EDT documented as of this encounter Visit Diagnoses Not on filedocumented in this encounter Care Teams Layer Up Relationship Specialty Start Date End Date Carlos Dominguez DO [address], [place] [address] [place], [place] [address] PCP - General Internal Medicine 04/05/24 Samaria Price MD [address] [place] [address] Hematology/[place] [phone] Medical Oncologist [facility] Medical Oncology 10/20/21 Jasmin Marshall, BOARDING ROOM FIXER [address] [place] [address] Hematology/[place] [phone] Nurse Practitioner [facility] Hematology and Oncology 10/20/21 Megan Tamez, MARCOS Nurse Clinician Medical Oncology 10/20/21 Junie Aggarwal, MARCOS Txp Post Coordinator Tipping Machine Operator Automatic 10/14/22 Ese Johnson, NahunD Pharmacist Pharmacist 10/17/22 documented as of this encounter
--- OUTSIDE RECORDS SUMMARY | 2024-09-09 09:42 | XMS_ITS | Encounter Summary ---
Author Organization [facility] Address [address] [place] [address] Care Team Providers Care Masseur/Masseuse Name Role Phone Samaria Price MD Unavailable Jasmin Marshall CNP Unavailable [phone] Megan Tamez RN Unavailable Unavailable Junie Aggarwal RN Unavailable Unava ilable Ese Johnson PharmD Unavailable Zaria vailable Carlos Dominguez DO Primary Care Provider [phone] Source Comments This information has been disclosed [...] release of HIV test results or diagnoses. [id number] Health Encounter Details Date Type Department Care Team (Late st Contact Info) Description 07/18/2024 Refill [facility] Ophthalmology at [facility] [address] [facility] [address] [place] [address] Amelie Brito, RN Social History Tobacco Use Types Packs/Day Years [...] Telephone Encounter - Amelie Brito RN - 07/18/2024 11:07 AM EDT Requested Prescriptions Pending Prescriptions Disp Refills prednisoLONE acetate (PRED FORTE) 1 % ophthalmic suspension 5 mL 0 documented in this encounter Plan of Treatment Upcoming Encounters Date Type Department Care Team (Late st Contact Info) Description 10/10/2024 12:31 PM EDT Hospital Encounter [facility] ENDOSCOPY [address] [place] [address] Enrike Mims MD [address] [place] [address] 10/10/2024 12:31 PM EDT - 10/10/2024 2:01 PM EDT Surgery [facility] ENDOSCOPY [address] [place] [address] Enrike Mims MD [address] [place] [address] ERCP Scheduled Procedures Name Priority Associated Diagnoses Date/Ti me 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 EDT documented as of this encounter Visit Diagnoses Not on filedocumented in this encounter Care Teams Masseur/Masseuse Relationship Specialty Start Date End Date Carlos Dominguez DO [address] [address] [place] [address] PCP - General Internal Medicine 04/05/24 Samaria Price MD [address] [facility] Hematology/[place] [phone] Medical Oncologist [facility] Medical Oncology 10/20/21 Jasmin Marshall, SOIL SCIENTIST [address] [facility] Hematology/[place] [address] Nurse Practitioner [facility] Hematology and Oncology 10/20/21 Megan Tamez, RN Nurse Clinician Medical Oncology 10/20/21 Junie Aggarwal, MARCOS Txp Post Coordinator Professor Of Biostatistics 10/14/22 Ese Johnson, PharmD Pharmacist Pharmacist 10/17/22 documented as of this encounter
--- OUTSIDE RECORDS SUMMARY | 2024-09-09 09:43 | XMS_ITS | Data Portability ---
Author Organization [facility] Address [address] [place] [address] Care Team Providers Care Second Shift Supervisor Name Role Phone VERONICA TORRES Primary Care Provider Assessment Encounter Date Assessment Date Assessment LastModified by Organization Details LastModified Time 02/25/2022 02/25/2022 overall doing well. prior CVA but no issues with the heart other than this. He has [id number]-hh-[id number] carotid artery stenosis with mild coronary disease. [...] Organization Details Last Modified Time Details Appointments OV NEW 30 2024 11:00A M SENIA HENRIQUEZ MD Not available Not available Not available Lab None recorded. Referral None recorded. Procedures None recorded. Surgeries None recorded. Imaging electroca rdiogram 2021 022 elohman [facility], [address] [place] [address] [address], [place], [address], 02/25/2022 10:03:29 Medication Orders None recorded. Patient TargetsNo targets recorded. Patient InstructionsNo instructions recorded. Reason for Referral None Reported. Results Created Date Observation Date Name Description Value Unit Range Abnormal Flag Note LastModifiedBy Organization Detail LastModifiedTime 02/26/20 elect rocar diogr am No observ ation record ed. [email or web address] [address], [place], [address], 02/25/2022 09:44:56 02/26/20 22 02/25/2022 elect rocar diogr am No observ ation record ed. [email or web address] Not Available 2021 09:46:02 Result Notes None recorded. Problems Name Problem SNOMED Code Status Onset Date Resolution Date Notes Provider Name and Address Organization Details Recorded Time Coronary atheroscl erosis 643982153 Active 2013 Not Available [facility] 2 23:33:03 Pain of shoulder region 31047540 Active 2013 Shoulder pain Not Available [facility] 2 23:33:03 Disorder of carotid artery 442231475 Active 2021 Carotid artery disease Not Available [facility] 2 23:33:03 Closed fracture of shaft of clavicle 65116247 Active 2018 Not Available [facility] 2 23:33:03 Electroca rdiogram abnormal 019931795 Active 2013 Not Available [facility] 2 23:33:03 Autoimmun e hepatitis 415760297 Active 2013 Not Available [facility] 2 23:33:03 Angina pectoris 560366552 Active 2013 Not Available 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 2 23:33:03 Carotid artery stenosis 53216792 Active 2013 Not Available [facility] 2 23:33:03 Hypertens wiley disorder 57098670 Active 2013 Hyperten grace Not Available [facility] 2 23:33:03 Abnormal results of cardiovas cular function studies 887586400 Active 2013 Not Available [facility] 2 23:33:03 Hypothyro idism 61278785 Active 2013 Not Available [facility] 2 23:33:03 Coronary arteriosc lerosis 14617723 Active 2021 Coronary artery disease Not Available [facility] 2 23:33:03 Ischemic heart disease 623175379 Active 2021 Ischemic heart disease Not Available [facility] 2 23:33:03 Essential hypertens ion 66399369 Active 2021 Essential hypertens ion Not Available [facility] 2 23:33:04 Cerebral infarctio n 300626064 Active 2013 Not Available [facility] 2 23:33:04 Chest pain 53466533 Active 2013 Not Available [facility] 2 23:33:04 Adhesive capsuliti s of shoulder 630193503 Active 2013 Not Available [facility] 2 23:33:04 Cirrhosis of liver 34770221 Active 2021 Nile Cardona MD [facility],[address], [place], [address] , [facility] & [place] 2 10:01:30 Cerebrova scular accident 216170257 Active 2021 Nile Cardona MD [facility] [employer] [facility],[address], [place], [address] , [facility] - [facility] & [place] 2 10:01:49 Problem Notes None recorded. Procedures Surgical History Date Name Laterality Status Provider Name and Address Organization Details Recorded Time Cardiac [facility] 02/25/2022 09:43:19 leg repair completed [facility] & [place] 02/25/2022 09:43:33 biopsy of liver completed [facility] & [place] 02/25/2022 09:43:44 Imaging Results None recorded. Procedure [...] Available Not Available No t Available vitamin H22-cdvdn acid injection solution 1 injection monthly active [...] Updated DateTime 2 175.26 cm 25 kg/m2 46716.2 7 g 100 % 100 % 55 /min 130 mm[Hg] 90 mm[Hg] Alicia Hatch [facility] & [place] 2 09:41:18 Social History None recorded. Functional Status None recorded. Mental Status None recorded. Family History Nothing Reported. Medical History Condition Response Thyroid Disease Y Stroke Y Hypertension Y Past Encounters Encounter ID Performer Location Encounter Start Date Encounter Closed Date Diagnosis/Indication Diagnosis SNOMED-CT Code Diagnosis ICD10 Code Diagnosis Note [id number] Nile Cardona MD [facility] [address] [place] [address] 02/25/2022 09:03:51 02/25/2022 09:43:42 Essential hypertension 32826574 I10 Coronary arteriosclerosis 58834567 I25.10 Carotid ar inessa stenosis 87671372 I65.29 Cirrhosis of liver 007 K74.60 Cerebrovas cular accident 202110230 I63.9 Health Concerns Section Related Observation LastModified by Organization Detai ls LastModified Time None Recorded Concern Status LastModified by Organization Details LastModified Time None Recorded Advance Directives Directive None Recorded Payers Insurance Date Sequence Insurance Name Policy Number Policy Nguyen Covered Member ID Nguyen Member ID Guarantor Name 08/27/2022 2 AARP (MEDICARE SUPPLEMENT) René Cornejo [id number] René Cornejo 08/27/2022 1 [place] René Cornejo [id number] René Cornejo 08/15/2019 2 AARP René Cornejo [id number] René Cornejo 08/29/2019 3 [place] Renéalejo Cornejo [id number] René Cornejo Notes Date Note Type [...] breath orthopnea or PND Nile Cardona MD [address] [facility],[address], [place], [address], [place] - [facility] - [place] & [place] 02/25/2022 10:32:16
--- OUTSIDE RECORDS SUMMARY | 2024-09-09 09:43 | XMS_ITS | Encounter Summary ---
Author Organization [facility] Address [address] [place] [id number] Care Team Providers Care Matrix Inspector Name Role Phone Samaria Price MD Unavailable Jasmin Marshall CNP Unavailable [phone] Megan Tamez RN Unavailable Unavailable Delores BETTS MD, George Primary Care Provide r Vibha Irwin RN Unavailable Unavaila Natalie Gordon RN Unavailable Unavailabl Kelli Rodriguez RN Unavailable Unavail able Junie Aggarwal RN Unavailable Unava ilable Ese Johnson PharmD Unavailable Zaria vailable Carlos Dominguez DO Primary Care Provider [phone] Source Comments This information has been disclosed [...] release of HIV test results or diagnoses. [id number] Reason for Referral * Surgical (Routine) - Closed Specialty Diagnoses / Procedures Referred By Contac t Referred To Contact Radiology Diagnoses HCC (hepatocellular carcinoma) (CMS-HCC) Procedures IR Bx Liver needle perc AMB Referral to Interventional Radiology (BODY IR) WI BIOPSY LIVER NEEDLE PERCUTANEOUS CHG CT GUIDANCE NEEDLE PLACEMENT CHG SONO GUIDE NEEDLE BIOPSY Samaria Price MD [address] Hematology/[place] [address] Phone: tel: fax: Referral ID Status Reason Start Date Expiration Date Visits Re quested Visits Authorized [id number] Closed 04/15/2022 10/12/2022 1 1 Encounter Details Date Type Department Care Team (Late st Contact Info) Description 04/14/2022 Orders Only [facility] Oncology at [facility] [address] [place] [address] Samaria Price MD [address] Hematology/[place] [address] HCC (hepatocellular carcinoma) (CMS-HCC) (Primary Dx) Social History Tobacco Use Types Packs/Day Years Used Date Smoking Tobacco: Never Smokeless Tobacco: Never Alcohol Use Standard Drinks/Week Comments Never 0 (1 standard drink = 0.6 oz pur e alcohol) AUDIT-C Answer Date Recorded Q1: How often do you have a drink containing alcohol? Never 12/23/2021 Q2: How many drinks containi ng alcohol do you have on a typical day when you are drinking? Patient does not drink Q3: How often do you have si x or more drinks on one occasion? Never 12/23/2021 PHQ-2 Answer Date Recorded PHQ-2 Total Score 0 12/22/2021 Sex and Gender Information Value Date Recorded Sex Assigned at Male 06/06/2021 6:51 PM EDT Legal Sex Male 3:36 PM EST Gender Identity Male 06/06/2021 6:51 PM EDT Sexual Orientation Not on file COVID-19 Exposure Response Date Recorded In the last 10 days, have yo u been in contact with someone who was confirmed or suspected to have Coronavirus/COVID-19? No / Unsure 04/06/2022 12:19 PM EST documented as of this encounter Plan of Treatment Upcoming Encounters Date Type Department Care Team (Late st Contact Info) Description 10/10/2024 12:31 PM EDT Hospital Encounter [facility] ENDOSCOPY [address] [place] [id number] Enrike Mims MD [address] [place] [phone] 10/10/2024 12:31 PM EDT - 10/10/2024 2:01 PM EDT Surgery [facility] ENDOSCOPY [address] [place] [id number] Enrike Mims MD [address] [place] [address] ERCP Scheduled Procedures Name Priority Associated Diagnoses Date/Ti me 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 EDT documented as of this encounter Results * IR Bx Liver needle perc (05/04/2022 9:36 AM EST) Anatomical Region Laterality Modality Abdomen X-Ray Angiograph y 05/04/2022 8:51 AM EST Impressions 05/05/2022 12:15 PM EST IMPRESSION: Technically successful ultrasound-guided, percutaneous, 18-G core biopsy of right inferior segment 6/7 hepatic lesion. Plan: -Follow-up biopsy results. -Continue planned follow-up with Dr. Rey in IR Clinic. Approved by Wendy Bee MD on 05/04/2022 6:01 PM EST I have personally reviewed the images and I agree with this report. Report Verified by: Kelly Khanna MD at 05/05/2022 12:15 PM EST Narrative 05/05/2022 12:15 PM EST Procedure: Percutaneous core biopsy of liver mass, ultrasound-guided Performed on 05/04/2022 Indications: 72-year-old man with past medical history of cirrhosis and a large liver lesion within the inferior right hepatic lobe. IR consulted for image guided biopsy, prior to local regional oncologic interventions with Dr. Rey of IR. Comparisons: Abdominal MRI 04/07/2022 Operators: Kelly Khanna MD, IR Attending Wendy Bee - [employer] Procedure and Findings: The procedure was performed in the VIR suite following informed consent. A time out was performed and the correct biopsy site was initialed by the radiologist. The patient received 11 minutes of IV moderate sedation under the supervision of the radiologist. 1% lidocaine local anesthesia was used. With the patient in the prone position, the right upper quadrant/right flank was prepped and draped in the usual sterile fashion. Ultrasound evaluation of the right hepatic lobe was performed, which reconfirmed segment 6/7 lesion. An appropriate skin entry site was selected. Using ultrasound guidance, a 17-G coaxial needle was placed into the liver parenchyma, directed towards the segment 6 7 lesion. Through the 17-G needle, a 15 cm, 18-G CorVocet biopsy needle was inserted and a biopsy was performed using ultrasound guidance. A total of 4 core biopsies were obtained, which were sent for pathology. Gelfoam was injected into the biopsy needle tract and the 17-G coaxial needle was removed. Ultrasound evaluation after the biopsies revealed no hematoma. There were no immediate complications. Biopsy site was dressed in usual fashion. This procedure was performed under the personal supervision of Dr. Khanna, who was present for the entire procedure. Procedure Note Kelly Khanna MD - 05/05/2022 Procedure: Percutaneous core biopsy of liver mass, ultrasound-guided Performed on 05/04/2022 Indications: 72-year-old man with past medical history of cirrhosis and alarge liver lesion within the inferior right hepatic lobe. IR consultedfor image guided biopsy, prior to local regional oncologic interventionswith Dr. Rey of IR. Comparisons: Abdominal MRI 04/07/2022 Operators: Kelly Khanna MD, IR Attending Wendy Bee - [employer] Officer Procedure and Findings: The procedure was performed in the VIR suite following informed consent.A time out was performed and the correct biopsy site was initialed by theradiologist. The patient received 11 minutes of IV moderate sedationunder the supervision of the radiologist. 1% lidocaine local anesthesiawas used. With the patient in the prone position, the right upper quadrant/rightflank was prepped and draped in the usual sterile fashion. Ultrasoundevaluation of the right hepatic lobe was performed, which reconfirmedsegment 6/7 lesion. An appropriate skin entry site was selected. Using ultrasound guidance, a 17-G coaxial needle was placed into the liverparenchyma, directed towards the segment 6 7 lesion. Through the 17-Gneedle, a 15 cm, 18-G CorVocet biopsy needle was inserted and a biopsy wasperformed using ultrasound guidance. A total of 4 core biopsies wereobtained, which were sent for pathology. Gelfoam was injected into thebiopsy needle tract and the 17-G coaxial needle was removed. Ultrasound evaluation after the biopsies revealed no hematoma. There wereno immediate complications. Biopsy site was dressed in usual fashion. This procedure was performed under the personal supervision of , who was present for the entire procedure. IMPRESSION: Technically successful ultrasound-guided, percutaneous, 18-Gcore biopsy of right inferior segment 6/7 hepatic lesion. Plan: -Follow-up biopsy results. -Continue planned follow-up with Dr. Rey in [facility]. Approved by Wendy Bee MD on 05/04/2022 6:01 PM EST I have personally reviewed the images and I agree with this report. Report Verified by: Kelly Khanna MD at 05/05/2022 12:15 PM EST Samaria Price MD G IR ORDERABLES Final Result documented in this encounter Visit Diagnoses Diagnosis HCC (hepatocellular carcinoma) (CMS-HCC)- Primary Malignant neoplasm of liver, primary Chronic autoimmune hepatitis (CMS-HCC)- Primary HCC (hepatocellular carcinoma) (CMS-HCC) Malignant neoplasm of liver, primary Biliary stricture Obstruction of bile duct documented in this encounter Additional Health Concerns Infection Onset Date Last Indicated Resolved Time Rule Out Tuberculosis 07/28/2022 07/29/20222022 12:37 PM EDT Rule Out Tuberculosis 07/29/2022 07/29/20222022 11:48 AM [...] documented as of this encounter Care Teams Matrix Inspector Relationship Specialty Start Date End Date Leo Estrella III, MD [address] [id number] PCP - General Family Medicine 12/22/21 04/04/24 Carlos Dominguez DO [address] [facility], [place] [address] [place] [address] PCP - General Internal Medicine 04/05/24 Samaria Price MD [address] [facility] Hematology/[place] [address] Medical Oncologist [facility] Medical Oncology 10/20/21 Jasmin Marshall [employer] [address] [facility] Hematology/[place] [address] Nurse Practitioner [facility] Hematology and Oncology 10/20/21 Megan Tamez, RN Nurse Clinician Medical Oncology 10/20/21 Vibha Irwin, RN Nurse Navigator Gastrointestinal Oncology 01/14/22 3 Natalie Harp, RN Txp Post Coordinator Learning Specialist 07/05/2209/05 Kelli Castillo, RN Txp Post Coordinator 09/06/22 11/21/22 Junie Aggarwal, RN Txp Post Coordinator Learning Specialist 10/14/22 Ese Johnson, PharmD Pharmacist Pharmacist 10/17/22 documented as of this encounter
--- OUTSIDE RECORDS SUMMARY | 2024-09-09 09:43 | XMS_ITS ---
Author Organization [facility] Address [address] [place] [id number] Care Team Providers Care Implement Mechanic Name Role Phone Samaria Price MD Unavailable Jasmin Marshall PUBLIC ADDRESS SYSTEM MECHANIC Unavailable [phone] Megan Tamez RN Unavailable Unavailable Junie Aggarwal RN Unavailable Unava ilable Ese Johnson PharmD Unavailable Zaria vailable Carlos Dominguez DO Primary Care Provider [phone] Dialysis Access Sites Type Status Location Placement Date Removal Da te Dual Lumen (Vas Cath) Inactive Right Neck (side) - Anterior 07/15/2022 08/04/2022 Trialysis Inactive Left Thigh - Anterior 07/08/2022 Trialysis Inactive Left Neck (side) - Anterior 06/29/2022 07/07/2022 Procedures Procedure Name Priority Date/Time Associated Diagnosis Comments COLOR FUNDUS PHOTOGRAPHY - OU - BOTH EYES Routine 08/30/2024 12:16 PM EDT Anatomical narrow angle OCT RETINA/MACULA-BOTH EYES Routine 08/30/2024 12:10 PM EDT Anatomical narrow angle B NATRIURETIC PEPTIDE Routine 08/30/2024 11:51 AM EDT Chronic systolic heart failure (CMS-HCC) HEPATIC FUNCTION PANEL Routine 08/30/2024 11:51 AM EDT S/P liver transplant ([facility]) RENAL FUNCTION PANEL W/EGFR Routine 08/30/2024 11:51 AM EDT S/P liver transplant (CMS-HCC) CBC Routine 08/30/2024 11:51 AM EDT S/P liver transplant (CMS-HCC) DIFFERENTIAL Routine 08/30/2024 11:51 AM EDT S/P liver transplant (CMS-HCC) CYCLOSPORINE LEVEL Routine 08/30/2024 11 :51 AM EDT S/P liver transplant (CMS-HCC) Immunosuppression ([facility]) DXA BONE DENSITY AXIAL SKELETON Routine 08/20/2024 1:03 PM EDT Liver replaced by transplant ([facility]) Immunosuppressive management encounter following liver transplant ([facility]) Encounter for therapeutic drug monitoring Osteoporosis, unspecified osteoporosis type, unspecified pathological fracture presence History of steroid therapy IRON STUDIES Routine 08/20/2024 10:26 AM EDT Iron deficiency FERRITIN Routine 08/20/2024 10:26 AM EDT Iron deficiency CYCLOSPORINE LEVEL Routine 08/20/2024 10 :26 AM EDT S/P liver transplant ([facility]) Immunosuppression ([facility]) B NATRIURETIC PEPTIDE Routine 08/20/2024 9:59 AM EDT Chronic systolic heart failure ([facility]) TRANSFERRIN RECEPTOR, SOLUBLE Routine 08/20/2024 9:59 AM EDT Iron deficiency HEPATIC FUNCTION PANEL Routine 08/20/2024 9:59 AM EDT S/P liver transplant (CMS-HCC) RENAL FUNCTION PANEL W/EGFR Routine 08/20/2024 9:59 AM EDT S/P liver transplant ([facility]) CBC Routine 08/20/2024 9:59 AM EDT S/P liver transplant ([facility]) DIFFERENTIAL Routine 08/20/2024 9:59 AM EDT S/P liver transplant ([facility]) MRI CARDIAC W AND WO CONTRAST Routine 08/01/2024 2:55 PM EDT Atrial mass POC SAMPLE TYPE Routine 08/01/2024 1:34 PM EDT POCT CREATININE Routine 08/01/2024 1:34 PM EDT POCT HEMOGLOBIN Routine 08/01/2024 1:34 PM EDT POCT HEMATOCRIT Routine 08/01/2024 1:34 PM EDT POC EGFR Routine 08/01/2024 1:34 PM EDT ECHO COMPLETE W/ STRAIN Routine 07/02/2024 10:43 AM EDT Acute on chronic HFrEF (heart failure with reduced ejection fraction) ([facility]) TSH Routine 01/10/2024 1:32 PM EDT Hypothyroidism, unspecified type from Last 3 Months or Most Recently Relevant to Health Maintenance Allergies Active Allergy Reactions Criticality Noted Date Comments Cefepime Other (See Comments) High 08/28/2022 Encephalopathy with myoclonus Other Reaction(s): Other (See Comments) Oxycodone Itching 02/20/2023 Delirious Medications acetaminophen (TYLENOL) 325 MG tabletIndication s:Pain Take 2 tablets (650 mg total) by mouth every 6 hours as needed. Indications: Pain 200 tablet 1 024 Active ondansetron (ZOFRAN-ODT) 4 MG disintegrating tabletIndication s:Cancer Chemotherapy-Ind uced Nausea and Vomiting Dissolve 1 tablet (4 mg total) by mouth every 8 hours as needed for Nausea. 90 tablet Active calcium-vitamin D 500 mg-5 mcg (200 unit) per tabletIndication s:osteoporosis Take 1 tablet by mouth 2 times a day with meals. Indications: osteoporosis 60 tablet 5 04/22/19 24 6:04 PM EST Active pantoprazole (PROTONIX) 40 MG tabletIndication s:heartburn Take 1 tablet (40 mg total) by mouth every morning before breakfast. Indications: heartburn 30 tablet 5 Active polyethylene glycol (GLYCOLAX) 17 gram/dose powder Dissolve 1 capful (17 g total) in 8 oz of liquid and drink by mouth 2 times a day. 238 g 3 024 Active sodium zirconium cyclosilicate (LOKELMA) 5 gram PwPkIndications: Hyperkalemia Empty entire contents of one packet (5 g) into a glass of water with at least 45 mL of water and drink once daily. Stir well and drink immediately. SEPARATE FROM OTHER MEDICATIONS BY 2 HOURS BEFORE AND AFTER. 30 packet 5 Active Additional Information Patient taking differently:5 g OralEvery other day, Reported on 07/22/2024 aspirin 81 MG EC tabletIndication s:myocardial infarction prevention,preve ntion of transient ischemic attack Take 1 tablet (81 mg total) by mouth daily. 90 tablet 3 Active carvediloL (COREG) 3.125 MG tabletIndication s:Left Ventricular Dysfunction following NH Take 1 tablet (3.125 mg total) by mouth 2 times a day. 180 tablet 3 024 Active furosemide (LASIX) 20 MG tabletIndication s:Acute on chronic HFrEF (heart failure with reduced ejection fraction) ([facility]) Take 1 tablet (20 mg total) by mouth daily as needed. As needed when you gain 5 lbs or notice swelling 180 tablet 2 024 Active rosuvastatin (CRESTOR) 5 MG tabletIndication s:Coronary artery disease involving osage coronary artery of osage heart without angina pectoris,Chest pain, unspecified type,Acute on chronic HFrEF (heart failure with reduced ejection fraction) ([facility]) Take 1 tablet (5 mg total) by mouth daily. 90 tablet 1 024 Active mycophenolate (CELLCEPT) 250 mg capsuleIndicatio ns:Prevention of Liver Transplant Rejection Take 1 capsule (250 mg total) by mouth 2 times a day. 60 capsule 5 08/22/19 10:21 AM EDT 025 Active cycloSPORINE modified (NEORAL/GENGRAF) 25 MG capsuleIndicatio ns:S/P liver transplant (CMS-HCC),Immuno suppressive management encounter following liver transplant (CMS-HCC) Take 1 capsule (25 mg total) by mouth 2 times a day. 60 capsule 08/22/19 10:21 AM EDT [address] (NOXAFIL) 100 mg TbEC Take 3 tablets (300 mg total) by mouth daily with breakfast. 90 tablet 2024 Active levothyroxine (SYNTHROID) 88 MCG tabletIndication s:hypothyroidism Take 1.5 tablets (132 mcg total) by mouth daily. Indications: hypothyroidism Active Additional Information Patient taking differently: 88 mcgOral Daily, Indications: hypothyroidism, Reported on 07/22/2024 predniSONE (DELTASONE) 5 MG tabletIndication s:Prevention of Liver Transplant Rejection Take 1 tablet (5 mg total) by mouth daily. 30 tablet 08/22/19 10:21 AM EDT 025 Active prednisoLONE acetate (PRED FORTE) 1 % ophthalmic suspension Place 1 drop into the right eye 4 times a day. 5 mL 1 025 Active sacubitriL-valsa rtan (ENTRESTO) 24-26 mg Tab Take 1 tablet by mouth every morning AND 2 tablets every evening. Check blood pressure before each dose. Hold one dose for systolic blood pressure less than 120. 270 tablet 1 08/30/19 3:06 PM EDT 025 Active prednisoLONE acetate (PRED FORTE) 1 % ophthalmic suspension Place 1 drop into the right eye 4 times a day. 15 mL 1 025 Active brimonidine (ALPHAGAN) 0.2 % ophthalmic solution Place 1 drop into the right eye 3 times a day. 10 mL 2 025 Active timolol (TIMOPTIC) 0.5 % ophthalmic solution Place 1 drop into the right eye 2 times a day. 10 mL 10 025 Active timolol (TIMOPTIC) 0.5 % ophthalmic solution INSTILL 1 DROP INTO RIGHT EYE TWICE DAILY 10 mL 10 025 2024 Discontinued(R efill / Reorder) brimonidine (ALPHAGAN) 0.2 % ophthalmic solution INSTILL 1 DROP INTO RIGHT EYE THREE TIMES DAILY 10 mL 025 2024 Discontinued sacubitriL-valsa rtan (ENTRESTO) 24-26 mg Tab Take 1 tablet by mouth 2 times a day. Check blood pressure before each dose. Hold one dose for systolic blood pressure less than 120. 180 tablet 1 025 2024 Discontinued sacubitriL-valsa rtan (ENTRESTO) 24-26 mg Tab Take 1 tablet by mouth every morning AND 2 tablets every evening. Check blood pressure before each dose. Hold one dose for systolic blood pressure less than 120. 270 tablet 1 025 2024 Discontinued brimonidine (ALPHAGAN) 0.2 % ophthalmic solution INSTILL 1 DROP INTO RIGHT EYE THREE TIMES DAILY 10 mL 025 2024 Discontinued(R efill / Reorder) Active Problems Problem Noted Date Diagnosed Date H/O fracture 04/26/2023 Myocardial infarction 04/26/2023 Shortness of breath 04/26/2023 Chronic systolic heart failure 04/26/2023 Assessment & Plan (07/25/2023 4:51 PM EDT): 73M with HFrEF (30-35% 03/2023-->40-45% 06/2023), 2/2 ICM/CAD s/p PCI with ELIER x 2 to RCA and LAD in 03/2023, autoimmune hepatitis, HCC (CMV R+, EBV R+) s/p OLT on 06/28/22 c/b abdominal compartment syndrome, revision of suprahepatic caval anastomosis and biliary anastomosis, 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 - Start low dose valsartan 20 mg BID for afterload reduction. Patient will monitor SBP, HR, and weight at home and contact clinic for SBP < 90 mmHg, LH/pre- syncope, or weight gain > 5 lbs per week; patient is aware to go to ED if syncope - Stop torsemide. Switch to Lasix 20 mg PRN - Discuss with Dr. Webber when patient can transition from DAPT to antiplatelet monotherapy - CMP - External referral for PT - Follow [facility] Assessment & Plan (06/11/2023 11:30 PM EDT): Due to worsening hypotension will hold off the current regimen as pt is symptomatic Will aim to rechallenge with low dose ARB Follow up on renal panel before retrial - echo ordered - fdg PEt to assess for inflammation ordered Had concerns for aspergilloma on imaging previously Other specified counseling 04/26/2023 History of falling 02/21/2023 long term acute care registered nurse (current) use of anticoagulants 2022 Encounter for therapeutic drug monitoring 2022 Immunosuppression 02/14/2023 Pleural effusion, not elsewhere classified 01/31 Solitary pulmonary nodule 01/31/2023 Insomnia, unspecified 01/31/2023 Personal history of urinary (tract) infections 1 04/02/2022 Unspecified fracture of left femur, subsequent encounter for closed fracture with routine healing 01/31/2023 BPH (benign prostatic hyperplasia) 12/07/2022 Benign prostatic hyperplasia 12/07/2022 long term acute care registered nurse (current) use of systemic steroids long term acute care registered nurse current use of aspirin 10/17/2022 halfway current use of systemic steroids 10/17 Hemiplga following cerebral infrc affecting left nondom side 10/01/2022 Critical illness myopathy 09/30/2022 Urinary retention 09/26/2022 Retention of urine 09/26/2022 Encounter for fitting and adjustment of urinary device 09/12/2022 Encounter for fitting and adjustment of urinary device 09/12/2022 Dysphagia 09/12/2022 Acute encephalopathy 08/28/2022 Antibiotic causing adverse effect 08/28/2022 Adverse effect of anti-infective 08/28/2022 Disorder of brain 08/28/2022 Brain abscesses 08/22/2022 Intraventricular hemorrhage 08/22/2022 Malignant neoplasm of liver, primary 08/21/2022 Liver transplant recipient 08/09/2022 Coronary artery disease involving osage coronar y artery 08/09/2022 Assessment & Plan (02/28/2023 11:17 PM EST): Patient with multivessel disease NSTEMI was opted for medical management Now being considered for revasc as he presented with decompensated Has already been on DAPT without any bleeding issues Hypotension will pursue revasc with support Oropharyngeal dysphagia 08/09/2022 Invasive aspergillosis 08/09/2022 Respiratory failure, unspeci fied, unspecified whether with hypoxia or hypercapnia 06/28/2022 Gastrostomy status 06/28/2022 Respiratory failure 06/28/2022 Malignant neoplasm of liver, primary, unspecified as to type 04/22/2022 Left foot drop 03/28/2022 Hypothyroidism, unspecified 03/20/2022 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 Assessment & Plan (2023 9:50 AM EST): - continue Voriconazole 300mg PO BID - recent Vori level therapeutic 04/15/23 - repeat CT chest (when not fluid overloaded) scheduled 05/09/23 - repeat MRI brain scheduled 05/04/23 - if both look significantly improved, may be able to complete therapy at the 1 year carlos (07/16/23) - RTC 06/21/[address] Ruiz scheduled already Essential (primary) hypertension 01/06/2022 HCC (hepatocellular carcinoma) 09/29/2021 Hepatocellular carcinoma 09/29/2021 Benign essential hypertension 09/23/2021 Constipation 09/23/2021 Diaphragmatic hernia without obstruction or gang miguel 09/23/2021 Gastroesophageal reflux disease without esophagi tis 09/23/2021 History of cerebrovascular accident with residua l deficit 09/23/2021 Hypothyroidism 09/23/2021 Vitamin B12 deficiency (non anemic) 09/23/2021 Autoimmune hepatitis 09/23/2021 Unspecified cirrhosis of liver 09/23/2021 Diaphragmatic hernia 09/23/2021 History of cerebrovascular accident with residua l deficit 09/23/2021 Vitamin B12 deficiency without anemia 09/23/2021 Visual loss 07/21/2021 Visual impairment 07/21/2021 Chronic autoimmune hepatitis 06/08/2021 Unspecified hearing loss, unspecified ear 2019 Hearing loss 07/22/2019 Athscl heart disease of kevin ve coronary artery w/o ang pctrs 06/19/2019 Gastro-esophageal reflux disease without esophag itis 06/19/2019 Dvrtclos of intest, part uns p, w/o perf or abscess w/o bleed 06/19/2019 Diverticula of intestine 06/19/2019 Arteriosclerosis of coronary artery 06/19/2019 Assessment & Plan (06/11/2023 11:31 PM EDT): Patient underwent multivessel PCI in February Has done ok but has had a complicated course lately due to hypotension Had notable NSTEMi prior to finally being revascularized ASA to be continued indefinitely Can stop prasugrel sooner if needed, else stop in end of Naima Neutropenia 05/24/2019 Foot drop, left foot 05/24/2019 Unspecified mood (affective) disorder 03/20/2000 Kidney transplant status 03/20/2000 Personal history of malignant neoplasm of liver 03/20/2000 Immunizations Immunization Administration Dates Next Due COVID-19, mRNA, Moderna monovalent, age 12+ 11/2 11/2020,05/27/2020,04/27/2020 Influenza, high-dose, [place] valent, preservative-free 01/23/2023,02/27/2022 Influenza, trivalent, with preservative 01/17/20 19 Influenza, unspecified 11/19/2019 Pneumococcal conjugate, 20-valent 11/15/2021 Pneumococcal polysaccharide, 23-valent 8 Zoster, recombinant 03/16/2021,12/08/2020 tdap 03/21/2016 Social History Tobacco Use Types Packs/Day Years Used Date Smoking Tobacco: Never Smokeless Tobacco: Never Tobacco Cessation:Counseling Given: Not Answered Alcohol Use Standard Drinks/Week Comments Never 0 (1 standard drink = 0.6 oz pur e alcohol) Utilities Answer Date Recorded In the past 12 months has [employer], gas, oil, or water [employer] threatened to shut off services in your [...] PM EDT Sexual Orientation Not on file Last Filed Vital Signs Vital Sign Reading Time Taken Comments Blood Pressure 114/71 08/30/2024 11:55 AM EDT Pulse 119 08/30/2024 11:55 AM EDT Temperature 36.4 C (97.6 F) 05/27/2024 9:34 AM EDT Respiratory Rate 18 07/02/2024 11:34 AM EDT Oxygen Saturation 100% 07/02/2024 11:34 AM EDT Inhaled Oxygen Concentration 100% 07/02/2024 1 1:34 AM EDT Weight 60.6 kg (133 lb 9.6 oz) 07/02/2024 11:34 AM EDT Height 175.3 cm (5' 9 ) 08/30/2024 11:55 AM EDT Body Mass Index 19.73 07/02/2024 11:34 AM EDT Results * Color Fundus Photography - OU - Both Eyes (08/30/2024 12:16 PM EDT) 08/30/2024 Narrative [facility] - 08/30/2024 3:17 PM EDT [Fundus exam] Carlos Young MD OPHTHALMOLOGY SERVICES ORDERABLE S Final Result Performing Organization Address [facility] Co de Phone Number [facility] * OCT Retina/Macula- Both Eyes (08/30/2024 12:10 PM EDT) 08/30/2024 Narrative [facility] - 08/30/2024 3:17 PM EDT Date of Test/Procedure Date: 08/30/2024. Notes Good foveal contour OS Carlos Young MD OPHTHALMOLOGY SERVICES ORDERABLE S Final Result Performing Organization Address [facility] Co de Phone Number [facility] * Hepatic Function Panel (08/30/2024 11:51 AM EDT) Only the most recent of2 resultswithin the time period is included. Total Bilirubin 0.9 0.0 - 1.5 mg/dL 08/30/2024 2:47 PM EDT [facility] Bilirubin, Direct 0.21 0.00 - 0.40 mg/dL 08/30/2024 2:47 PM EDT [facility] Comment:HEMOLYSIS EVIDENT. D IRECT BILIRUBIN CONCENTRATIONS MAY BE FALSELY DECREASED IN THE PRESENCE OF HEMOLYSIS. INTERPRET WITH CAUTION. AST 20 13 - 39 U/L 08/30/2024 2:47 PM EDT [facility] ALT 8 7 - 52 U/L 08/30/2024 2:47 PM EDT [facility] Alkaline Phosphatase 86 36 - 125 U/L 08/30/2024 2:47 PM EDT [facility] Total Protein 6.6 6.4 - 8.9 g/dL 08/30/2024 2:47 PM EDT [facility] Albumin 3.9 3.5 - 5.7 g/dL 08/30/2024 2:47 PM EDT [facility] Bilirubin, Indirect 0.69 0.00 - 1.10 mg/dL 08/30/2024 2:47 PM EDT [facility] Plasma 08/30/2024 11:5 1 AM EDT 08/30/2024 2:16 PM EDT Narrative [facility] - 08/30/2024 2:47 PM EDT Standing liver transplant labs. Please fax results to [phone]. Call critical results to [phone]. us Kolton Martinez MD LAB BLOOD ORDERABLES Kalli grider Result [facility] [address] * (ABNORMAL) Renal Function Panel w/EGFR (08/30/2024 11:51 AM EDT) Only the most recent of2 resultswithin the time period is included. Sodium 136 133 - 146 mmol/L 08/30/2024 2:47 PM EDT [facility] Potassium 4.4 3.5 - 5.3 mmol/L 08/30/2024 2:47 PM EDT [facility] Comment:Hemolysis Present: R esults may be influenced artificially. Recommend recollection as clinically indicated. Chloride 101 98 - 110 mmol/L 08/30/2024 2:47 PM EDT [facility] CO2 25 21 - 33 mmol/L 08/30/2024 2:47 PM EDT [facility] Anion Gap 10 3 - 16 mmol/L 08/30/2024 2:47 PM EDT [facility] BUN 29(H) 7 - 25 mg/dL 08/30/2024 2:47 PM EDT [facility] Creatinine 1.09 0.60 - 1.30 mg/dL 08/30/2024 2:47 PM EDT [facility] Glucose 95 70 - 100 mg/dL 08/30/2024 2:47 PM EDT [facility] Calcium 9.1 8.6 - 10.3 mg/dL 08/30/2024 2:47 PM EDT [facility] Phosphorus 2.9 2.1 - 4.5 mg/dL 08/30/2024 2:47 PM EDT [facility] Comment:HEMOLYSIS EVIDENT. R ESULTS MAY BE INFLUENCED. Albumin 3.9 3.5 - 5.7 g/dL 08/30/2024 2:47 PM EDT [facility] Osmolality, Calculated 288 278 - 305 mOsm/kg 08/30/2024 2:47 PM EDT [facility] EGFR 71 08/30/2024 2:47 PM EDT [facility] Comment:As of 2021, the estimated GFR [...] Disease. Am J Kidney Dis. 2020. Plasma 08/30/2024 11:5 1 AM EDT 08/30/2024 2:16 PM EDT Narrative [facility] - 08/30/2024 2:47 PM EDT Standing liver transplant labs. Please fax results to [phone]. Call critical results to [phone]. us Kolton Martinez MD LAB BLOOD ORDERABLES Kalli l Result Performing Organization Address [facility] Co de Phone Number [facility] [address] [facility]. [address] * (ABNORMAL) Cyclosporine level (08/30/2024 11:51 AM EDT) Only the most recent of2 resultswithin the time period is included. Cyclosporine, LC/MS 350.7(H) 100.0 - 350.0 ng/mL 08/31/2024 3:24 PM EDT [facility] Comment:Performed via liquid chromatography tandem mass spectrometry. Detection limit: 20 ng/mL. Individual target concentrations may vary due to target organ and time after transplant. This test has been developed and its performance characteristics determined by [facility] which is certified under the Clinical Laboratory Improvement Amendment of 1988 (CLIA-88) to perform high complexity testing. The test has not been cleared or approved by the US Food and Drug Administration (FDA). The FDA has determined that such clearance is not necessary. The test should be used for clinical purposes and is not regarded as investigational. Whole Blood 08/30/2024 11:5 1 AM EDT 08/30/2024 2:20 PM EDT Narrative [facility] - 08/31/2024 3:24 PM EDT Standing liver transplant labs. Please fax results to [phone]. Call critical results to [phone]. Kolton Martinez MD LAB BLOOD ORDERABLES Kalli l Result Performing Organization Address City/[facility]/ZIP Co de Phone Number [facility] [address] * Differential (08/30/2024 11:51 AM EDT) Only the most recent of2 resultswithin the time period is included. Neutrophils Relative 75.5 40.0 - 80.0 % 08/30/2024 2:34 PM EDT [facility] Lymphocytes Relative 17.6 15.0 - 45.0 % 08/30/2024 2:34 PM EDT [facility] Monocytes Relative 5.4 0.0 - 12.0 % 08/30/2024 2:34 PM EDT [facility] Eosinophils Relative 1.1 0.0 - 8.0 % 08/30/2024 2:34 PM EDT [facility] Basophils Relative 0.4 0.0 - 1.0 % 08/30/2024 2:34 PM EDT [facility] nRBC 0 0 - 0 /100 WBC 08/30/2024 2:34 PM EDT [facility] Neutrophils Absolute 6,116 1,520 - 8,640 /uL 08/30/2024 2:34 PM EDT [facility] Lymphocytes Absolute 1,426 570 - 4,860 /uL 08/30/2024 2:34 PM EDT [facility] Monocytes Absolute 437 0 - 1,296 /uL 08/30/2024 2:34 PM EDT [facility] Eosinophils Absolute 89 0 - 864 /uL 08/30/2024 2:34 PM EDT [facility] Basophils Absolute 32 0 - 108 /uL 08/30/2024 2:34 PM EDT [facility] Whole Blood 08/30/2024 11:5 1 AM EDT 08/30/2024 2:16 PM EDT Narrative [facility] - 08/30/2024 2:34 PM EDT Standing liver transplant labs. Please fax results to [phone]. Call critical results to [phone]. Kolton Martinez MD LAB BLOOD ORDERABLES Kalli grider Result [facility] [address] [id number] * (ABNORMAL) CBC (08/30/2024 11:51 AM EDT) Only the most recent of2 resultswithin the time period is included. WBC 8.1 3.8 - 10.8 10E3/uL 08/30/2024 2:34 PM EDT [facility] RBC 4.09(L) 4.20 - 5.80 10E6/uL 08/30/2024 2:34 PM EDT [facility] Hemoglobin 13.1(L) 13.2 - 17.1 g/dL 08/30/2024 2:34 PM EDT [facility] Hematocrit 38.8 38.5 - 50.0 % 08/30/2024 2:34 PM EDT [facility] MCV 94.9 80.0 - 100.0 fL 08/30/2024 2:34 PM EDT [facility] MCH 32.0 27.0 - 33.0 pg 08/30/2024 2:34 PM EDT [facility] MCHC 33.7 32.0 - 36.0 g/dL 08/30/2024 2:34 PM EDT [facility] RDW 15.1(H) 11.0 - 15.0 % 08/30/2024 2:34 PM EDT [facility] Platelets 280 140 - 400 10E3/uL 08/30/2024 2:34 PM EDT [facility] MPV 9.3 7.5 - 11.5 fL 08/30/2024 2:34 PM EDT [facility] Whole Blood 08/30/2024 11:5 1 AM EDT 08/30/2024 2:16 PM EDT Narrative [facility] - 08/30/2024 2:34 PM EDT Standing liver transplant labs. Please fax results to [phone]. Call critical results to [phone]. us Kolton Martinez MD LAB BLOOD ORDERABLES Kalli l Result [facility] [address] * (ABNORMAL) B Natriuretic Peptide (08/30/2024 11:51 AM EDT) Only the most recent of2 resultswithin the time period is included. BNP 966(H) 0 - 100 pg/mL 08/30/2024 2:45 PM EDT [facility] Comment: BNP may be increased in the presence of sacubitril/valsartan (Entresto). Please interpret accordingly. Plasma 08/30/2024 11:5 1 AM EDT 08/30/2024 2:16 PM EDT Narrative [facility] - 08/30/2024 2:45 PM EDT The presence of high concentrations of biotin may cause falsely lowered BNP results. Biotin interference may be seen if an individual is taking >5 mg biotin per day. Interpret BNP results in the context of the patient's clinical presentation. us [facility] BLOOD ORDERABLES Final Res ult [facility] [address] [place] [address], [facility] * DXA bone density axial skeleton (08/20/2024 [...] SKELETON INDICATION: Liver replaced by transplant (CMS-HCC); Immunosuppressive management encounter following liver transplant (CMS-HCC); Immunosuppressive management encounter following liver transplant ([facility]-HCC); Encounter for therapeutic drug monitoring; Osteoporosis, unspecified osteoporosis type, unspecified pathological fracture presence; History of steroid therapy TECHNICAL: Bone mineral density analysis was performed on a Ligandal scanner. ARTIFACTS: There is lumbar spondylosis which [...] AXIAL SKELETON INDICATION: Liver replaced by transplant ([facility]-HCC); Immunosuppressivemanagement encounter following liver transplant (CMS-HCC);Immunosuppressive management encounter following liver transplant([facility]-HCC); Encounter for therapeutic drug monitoring; Osteoporosis,unspecified osteoporosis type, unspecified pathological fracture presence;History of steroid therapy TECHNICAL: Bone mineral density analysis was performed on a MadeiraCloud/[employer] iDXAscanner. ARTIFACTS: There is lumbar spondylosis which [...] Martinez MD IMG DEXA ORDERABLES Final Result * Iron Studies (Iron + TIBC) (08/20/2024 10:26 AM EDT) Iron 59 50 - 212 ug/dL 08/20/2024 11:03 AM EDT [facility] % Iron Saturation 17.3 15.0 - 55.0 % 08/20/2024 11:03 AM EDT [facility] TIBC 342 261 - 462 ug/dL 08/20/2024 11:03 AM EDT [facility] Serum 08/20/2024 10:2 6 AM EDT 08/20/2024 10:26 AM EDT us [facility] BLOOD ORDERABLES Final Res ult [facility] [address] [place], [place] [address] [place] [address] * Ferritin (08/20/2024 10:26 AM EDT) Ferritin 150.2 23.9 - 336.2 ng/mL 08/20/2024 11:17 AM EDT [facility] Serum 08/20/2024 10:2 6 AM EDT 08/20/2024 10:26 AM EDT [facility] BLOOD ORDERABLES Final Res ult Performing Organization Address City/[facility]/ZIP Co de Phone Number [facility] [address] [facility]. [address] * Transferrin Receptor, Soluble (08/20/2024 9:59 AM EDT) Transferrin Receptor 14.9 12.2 - 27.3 nmol/L 08/22/2024 6:20 AM EDT [facility] Serum 08/20/2024 9:59 AM EDT 08/22/2024 7:06 AM EDT Narrative [facility] - 08/22/2024 7:06 AM EDT PERFORMED AT: [address] [id number] SKEIN DYER: Coral Aguilera MD PHONE: [phone] [facility] BLOOD ORDERABLES Final Res ult Performing Organization Address [facility] Co de Phone Number [facility] [address] [facility]. [address] * MRI Cardiac W WO contrast (08/01/2024 [...] chest CT. Thank you for referring to [facility] Cardiac Magnetic Resonance Imaging. Report Verified by: Goyo Campos MD at 08/08/2024 7:58 AM EDT Narrative 08/08/2024 7:58 AM EDT Exam: MRI CARDIAC W AND WO CONTRAST Comparison: CT chest dated 05/09/2023 Contrast: 15 mL of GADOBUTROL 1 MMOL/ML INTRAVENOUS SYRINGE ([facility]) administered intravenously Indication: atrial mass; Atrial mass [...] fat saturation Scanner Giana: 1.5T Scanner Vendor: [employer] Exam Quality: excellent Findings: QUALITATIVE IMPRESSIONS: Left [...] mL of GADOBUTROL 1 MMOL/ML INTRAVENOUS SYRINGE ([facility])administered intravenously Indication: atrial mass; Atrial mass Patient [...] fat saturation Scanner Giana: 1.5T Scanner Vendor: [employer] Exam Quality: excellent Findings: QUALITATIVE IMPRESSIONS: Left [...] chest CT. Thank you for referring to [facility] Cardiac Magnetic Resonance Imaging. Report Verified by: Goyo Campos MD at 08/08/2024 7:58 AM EDT us Genet Cha MD IMG MRI ORDERABLES Final Res ult * POC eGFR (08/01/2024 1:34 PM EDT) Pathologist [facility] POC [id number] 08/01/2024 1:41 PM EDT HEALTH LAB Comment:As of 2021, the estimated GFR [...] MD LAB BLOOD ORDERABLES Final R esult Performing Organization Address City/[facility]/ZIP Co de Phone Number [facility] [address] [facility]. [address] * POC Sample Type (08/01/2024 1:34 PM EDT) POC Sample Type Unspecified 08/01/2024 1:41 PM EDT [facility] Blood, Arterial 08/01/2024 1 :34 PM EDT 08/01/2024 1:41 PM EDT us Genet Cha MD POINT OF CARE TEST ORDERABLE S Final Result [facility] [address] [facility]. [address] * (ABNORMAL) POC hematocrit (08/01/2024 1:34 PM EDT) POC Hematocrit 37.0(L) 40 - 52 % 08/01/2024 1:41 PM EDT [facility] Blood, Arterial 08/01/2024 1 :34 PM EDT 08/01/2024 1:41 PM EDT us Genet Cha MD POINT OF CARE TEST ORDERABLE S Final Result [facility] [address] * POC creatinine (08/01/2024 1:34 PM EDT) POC Creatinine 1.06 0.60 - 1.30 mg/dL 08/01/2024 1:41 PM EDT [facility] Blood, Arterial 08/01/2024 1 :34 PM EDT 08/01/2024 1:41 PM EDT Genet Cha MD POINT OF CARE TEST ORDERABLE S Final Result Performing Organization Address [facility]/ZIP Co de Phone Number [facility] [address] * (ABNORMAL) POC Hemoglobin (08/01/2024 1:34 PM EDT) Pathologist [facility] POC Hemoglobin 12.7(L) 14.0 - 18.0 g/dL 08/01/2024 1:41 PM EDT [facility] Blood, Arterial 08/01/2024 1 :34 PM EDT 08/01/2024 1:41 PM EDT Genet Cha MD POINT OF CARE TEST ORDERABLE S Final Result Performing Organization Address City/[facility]/ZIP Co de Phone Number [facility] [address] * ECHO COMPLETE W/ STRAIN (07/02/2024 10:43 AM EDT) Anatomical Region Laterality Modality Chest Ultrasound 07/02/2024 10:1 7 AM EDT Narrative 07/05/2024 11:12 AM EDT * [facility] - Echocardiology Lab* [address] [place] [address], [address] [place] [address] Transthoracic Echocardiogram Patient: René Cornejo Room: echolab Height: 69in MR Number: [id number] : 1950 Weight: 110lb Account: [id number] Gender: M BP: Study Date: 07/02/2024 Age: 74 BSA: 1.54m^2 Referring physician: Interpreting physician: Ann Ding MD PERFORMING [facility]Ann Ding LABORER YARD Jovana Wright MD ATTENDING Genet Cha MD Procedure:TRANSTHORACIC ECHO (TTE) Order: Accession COMPLETE Number:[id number] Indications: Acute on chronic heart failure with [...] 2.1 FS, LAX chord (L) -52 % 19 ESD major ax, 7.3 cm --------- [...] - 2.1 2.1 FS (H) 3069 % PW, ED (L) 0.5 cm 0.6 - 1.0 1.2 IVS/PW, ED 1.19 --------- 0.83 EDV (N) 128 ml 62 - 150 83 ESV (H) 71 ml 21 - 61 51 EF (L) -2112914 % 52 - 72 39 SV 71 [...] Reviewed and confirmed by Ann Ding MD [id number] Procedure Note Ann Ding MD - 07/05/2024 * [facility] - EchocardiologyLab* [address] [facility], [address] [place] [address] Transthoracic Echocardiogram Patient: René Cornejo [facility] Height: 69in MR Number: [id number] : 1950 Weight:110lb Account: [id number] Gender: M BP: Study Date: 07/02/2024 Age: 74 BSA:1.54m^2 Referring physician: Interpreting physician: Ann Ding MD PERFORMING [facility]Ann [facility] LABORER YARD Jovana Wright [facility] Genet Cha MD ATTENDING Genet Cha MD Procedure:TRANSTHORACIC ECHO (TTE) Order: Accession COMPLETE Number:[id number] Indications: Acute on chronic heart failure with reduced ejection fraction (I50.23). PMH: Coronary artery disease. Risk factors: Hypertension. Study data: Height: 69in. 175.3cm. Weight: 110lb. 49.9kg. Studystatus: Routine. Procedure: A transthoracic echocardiogram was performed.Image quality was good. Scanning was performed from the parasternal, apical,and subcostal acoustic windows. Transthoracic echocardiogram.M-mode, complete 2D, complete spectral Doppler, and color [...] Right atrium: Prominent right atrial echodensity, may representthrombus vs tumor. Recommend cardiac MRI or TAHIR for further evaluation if clinically indicated. There is a prominent Eustachian valve. - Pulmonary arteries: Systolic pressure could not be accuratelyestimated. - Inferior vena cava: The IVC is normal-sized. Impressions: Right atrial mass. Notified Dr Cha. Cardiac Anatomy Left ventricle: - The cavity size is normal. Wall thickness is normal. Systolic functionis moderately to severely reduced. The estimated ejection fraction is30-35%. There is diffuse hypokinesis. - Grade II diastolic dysfunction. Aorta: Aortic root: The root is normal in size. Aortic valve: - Poorly visualized. Mobility is not restricted. Velocity is within the normal range. There is no stenosis. There is no regurgitation. Themean systolic gradient is 3mm Hg. The peak systolic gradient is 5mm Hg. The LVOT to aortic valve VTI ratio is 0.66. The valve area is 1.9cm^2. The valve area index is 1.21cm^2/m^2. The ratio of LVOT to aortic valvepeak velocity is 0.61. The valve area is 1.8cm^2. The valve area index is 1.19cm^2/m^2. The ratio of LVOT to aortic valve mean velocity is 0.62.The valve area is 1.8cm^2. The valve area index is 1.15cm^2/m^2. Mitral valve: - The valve is structurally normal. Mobility is not restricted. Inflow velocity is within the normal range. There is no evidence forstenosis. There is mild regurgitation. The mean diastolic gradient is 1mm Hg.The peak diastolic gradient is 1mm Hg. The valve area is 2.0cm^2. Thevalve area index is 1.29cm^2/m^2. The valve area index by pressure half-timeis 0.88cm^2/m^2. The valve area (LVOT continuity) is 2.0cm^2. The valvearea index (LVOT continuity) is 1.29cm^2/m^2. Left atrium: The atrium is severely dilated. Pulmonary artery: - Systolic pressure could not be accurately estimated. Right ventricle: - The cavity size is normal. Systolic function is normal. TAPSE: 1.6cm. Pulmonic valve: - Velocity is within the normal range. There is no evidence forstenosis. There is no regurgitation. Tricuspid valve: - The valve is structurally normal. Inflow velocity is within the normal range. There is no regurgitation. Right atrium: The atrium is normal in size. Prominent right atrial echodensity, may represent thrombus vs tumor. Recommend cardiac MRI orTEE for further evaluation if clinically indicated. There [...] 2.1 FS, LAX chord (L) -52 % 43 19 ESD major ax, 7.3 cm [...] ml 21 - 61 51 EF (L) -[id number] % 52 - 72 39 SV 71 [...] Reviewed and confirmed by Ann Ding MD [id number] us Genet Cha MD CV ECHO ORDERABLES Final Res ult * TSH (Thyroid Stimulating Hormone) (01/10/2024 1:32 PM EDT) TSH 1.99 0.45 - 4.12 uIU/mL 01/10/2024 2:15 PM EDT [facility] Serum 01/10/2024 1:32 PM EDT 01/10/2024 1:32 PM EDT us Vandana Holden MD LAB BLOOD ORDERABLES Final Resul t [facility] [address] [place] [address], [facility] from Last 3 Months or Most Recently Relevant to Health Maintenance
--- OUTSIDE RECORDS SUMMARY | 2024-09-09 09:43 | XMS_ITS ---
Author Organization [facility] Address [address] [place] [address] Care Team Providers Care Inspector Watch Assembly Name Role Phone Samaria Price MD Unavailable Jasmin Marshall CNP Unavailable [phone] Megan Tamez RN Unavailable Unavailable Junie Aggarwal RN Unavailable Unava ilable Ese Johnson PharmD Unavailable Zaria vailable Carlos Dominguez DO Primary Care Provider [phone] Transplant Episode Liver Recipient [facility] ([place], [place]) - [facility] Organ Received: Liver Transplanted on 06/28/2022 Marked as Active Follow-up on 06/28/2022 Liver CoordinatorJunie Aggarwal RN Phone: N/A Fax: N/A Email: N/A [place] Organ Diagnosis Organ Primary Contributory Liver Cirrhosis: Autoimmune Primary Li aimee Malignancy: Hepatoma, Hepatocellular Carcinoma (HCC) Infection History Noted Survival Infection Treatment Organism Resolved 01/31/2023 217 days Personal history of urinary (tract) infections 08/09/2022 42 days 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CMS-HCC) Donor Information Organ ABO Source Meets Risk Criteria HLA Match Mismatches Cross Match Liver Transplanted O DBD No A: B: DR: Liver Donor Serology Results Anti-CMV No results on file EBV IgG EBV VCA IgG: pending Anti-HCV HCV Ab: negative Anti-HBcAb HBC Total: Negative HBsAg HBsAg: Negative HBV DNA No results on file Anti-HIV I/II HIV Ab: Negative HIV RNA: Negative Anti-HTLV I/II No results on file RPR/VDRL RPR: negative EBV IgM EBV VCA IgM: pending HBsAb No results on file EBNA EBNA IgG: pending EBNA IgM: pending Care Team Name Role Phone Fax Email Junie Aggarwal RN Liver Coordinator N/A N/ A N/A Kolton Martinez MD [facility] Cake Winder [phone] N/A Enrike Wray RN [facility] Pre Coordinator N/A N/A N/A Reji Drake MD Referring Physician N/A N/A N/A Kelechi Bland III, MD [facility] Surgeon [phone] N/A Natalie Duron MSW, SHELTER CASE MANAGER [facility] Analysis Tester N/A N/A N/A Junie Aggarwal RN [facility] Post Coordinator N/A N/A N/A Events Post-Transplant Pre-Transplant Admitted: 06/28/2022 Referred: 09/03/2021 Transplanted: 06/28/2022 Evaluation began: 2 Discharged: 08/09/2022 Committee: 02/08/2022 Center waitlisted: 2
--- OUTSIDE RECORDS SUMMARY | 2024-09-09 09:43 | XMS_ITS | Encounter Summary ---
Author Organization [place] [place] [address] Care Team Providers Care Electroneurodiagnostic Technologist Name Role Phone Unavailable Primary Care Provider Unavailabl e Encounter Details Date Type Department Care Team (Latest Contact Info) Description 02/18/2023 External Contact SEP Pulmonology [facility] [address] [address] Roddy Alvarez MD [address] [phone] Chronic respiratory failure with hypercapnia (HCC) (Primary Dx); Cough, unspecified type; Bilateral pleural effusion; Dysphagia, unspecified type Social History Tobacco Use Types [...] of this encounter Visit Diagnoses Diagnosis Chronic respiratory failure with hypercapnia (HCC)- Primary Chronic respiratory failure Cough, unspecified type Bilateral pleural effusion Unspecified pleural effusion Dysphagia, unspecified type documented in this encounter
--- OUTSIDE RECORDS SUMMARY | 2024-09-09 09:43 | XMS_ITS | Clinical Summary ---
Author Organization [facility] Address [address] [place] [address] Care Team Providers Care Surgical Manager Name Role Phone Samaria Price MD Unavailable Jasmin Marshall CNP Unavailable [phone] Megan Tamez RN Unavailable Unavailable Junie Aggarwal RN Unavailable Unava ilable Ese Johnson PharmD Unavailable Zaria vailable Carlos Dominguez DO Primary Care Provider [phone] Source Comments This information has been disclosed to you from confidential records protectedfrom disclosure by state law. You shall make no further disclosure of thisinformation without the specific, written, and informed release of theindividual to whom it pertains, or as otherwise permitted by law. A generalauthorization for the release of medical or other information is not sufficientfor the purposes of therelease of HIV test results or diagnoses. [id number] Allergies Active Allergy Reactions Criticality Noted Date Comments Cefepime Other (See Comments) High 08/28/2022 Encephalopathy with myoclonus Other Reaction(s): Other (See Comments) Oxycodone Itching 02/20/2023 Delirious Medications acetaminophen (TYLENOL) 325 MG tabletIndication s:Pain Take 2 tablets (650 mg total) by mouth every 6 hours as needed. Indications: Pain 200 tablet 1 Active ondansetron (ZOFRAN-ODT) 4 MG disintegrating tabletIndication s:Cancer Chemotherapy-Ind uced Nausea and Vomiting Dissolve 1 tablet (4 mg total) by mouth every 8 hours as needed for Nausea. 90 tablet 024 Active calcium-vitamin D 500 mg-5 mcg (200 unit) per tabletIndication s:osteoporosis Take 1 tablet by mouth 2 times a day with meals. Indications: osteoporosis 60 tablet 5 04/22/19 24 6:04 PM EST Active pantoprazole (PROTONIX) 40 MG tabletIndication s:heartburn Take 1 tablet (40 mg total) by mouth every morning before breakfast. Indications: heartburn 30 tablet 5 024 Active polyethylene glycol (GLYCOLAX) 17 gram/dose powder [...] HOURS BEFORE AND AFTER. 30 packet 5 024 Active Additional Information Patient taking differently:5 g OralEvery other day, Reported on 07/22/2024 aspirin 81 MG EC tabletIndication s:myocardial infarction prevention,preve ntion of transient ischemic attack Take 1 tablet (81 mg total) by mouth daily. 90 tablet 3 024 Active carvediloL (COREG) 3.125 MG tabletIndication s:Left Ventricular Dysfunction following [place] Take 1 tablet (3.125 mg total) by mouth 2 times a day. 180 tablet 3 024 Active furosemide (LASIX) 20 MG tabletIndication s:Acute on chronic HFrEF (heart failure with reduced ejection fraction) ([facility]) Take 1 tablet (20 mg total) by mouth daily as needed. As needed when you gain 5 lbs or notice swelling 180 tablet 2 024 Active rosuvastatin (CRESTOR) 5 MG tabletIndication s:Coronary artery disease involving the [place] coronary artery of [place] heart without angina pectoris,Chest pain, unspecified type,Acute on chronic HFrEF (heart failure with reduced ejection fraction) ([facility]) Take 1 tablet (5 mg total) by mouth daily. 90 tablet 1 024 Active mycophenolate (CELLCEPT) 250 mg capsuleIndicatio ns:Prevention of Liver Transplant Rejection Take 1 capsule (250 mg total) by mouth 2 times a day. 60 capsule 5 08/22/19 25 10:21 AM EDT 025 Active cycloSPORINE modified (NEORAL/GENGRAF) 25 MG capsuleIndicatio ns:S/P liver transplant ([facility]),Immuno suppressive management encounter following liver transplant ([facility]) Take 1 capsule (25 mg total) by mouth 2 times a day. 60 capsule 08/22/19 10:21 AM EDT [address] (NOXAFIL) 100 mg TbEC Take 3 tablets (300 mg total) by mouth daily with breakfast. 90 tablet 025 2024 Active levothyroxine (SYNTHROID) 88 MCG tabletIndication s:hypothyroidism Take 1.5 tablets (132 mcg total) by mouth daily. Indications: hypothyroidism 025 Active Additional Information Patient taking differently: 88 mcgOral Daily, Indications: hypothyroidism, Reported on 07/22/2024 predniSONE (DELTASONE) 5 MG tabletIndication s:Prevention of Liver Transplant Rejection Take 1 tablet (5 mg total) by mouth daily. 30 tablet 5 08/22/19 25 10:21 AM EDT 025 Active prednisoLONE acetate (PRED FORTE) 1 % ophthalmic suspension Place 1 drop into the right eye 4 times a day. 5 mL 025 Active sacubitriL-valsa rtan (ENTRESTO) 24-26 mg Tab Take 1 tablet by mouth every morning AND 2 tablets every evening. Check blood pressure before each dose. Hold one dose for systolic blood pressure less than 120. 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 2022 Encounter for therapeutic drug monitoring 2022 Immunosuppression 02/14/2023 Pleural effusion, not elsewhere classified 01/31 Solitary pulmonary nodule 01/31/2023 Insomnia, unspecified 01/31/2023 Personal history of urinary (tract) infections 1 04/02/2022 Unspecified fracture of left femur, subsequent encounter for closed fracture with routine healing 01/31/2023 BPH (benign prostatic hyperplasia) 12/07/2022 Benign prostatic hyperplasia 12/07/2022 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 current use of aspirin 10/17/2022 [facility] current use of systemic steroids 10/17 Hemiplga [...] transplant recipient 08/09/2022 Coronary artery disease involving the [place] coronar y artery 08/09/2022 Assessment & Plan [...] if needed, else stop in end of August Neutropenia 05/24/2019 Foot drop, left foot 05/24/2019 Unspecified mood (affective) disorder 03/20/2000 Kidney transplant status 03/20/2000 Personal history of malignant neoplasm of liver 03/20/2000 Resolved Problems Problem Noted Date Diagnosed Date Resolved Date [facility] (current) use of aspirin 10/17/2022 06/11/2023 Dysphagia, unspecified 09/12/202206/10 Neutropenia 08/22/2022 06/11/2023 Acute on chronic respiratory failure with hypoxia and hypercapnia 08/09/2022 08/22/2022 Severe muscle deconditioning 08/09/2022 09/29/2022 LUKE (acute kidney injury) 06/29/2022 Liver transplant status 06/28/202205/19 Encounter for immunization 04/22/2022 0 08/22/2022 Other specified counseling 04/22/2022 0 08/22/2022 Acute hepatitis 12/22/2021 08/22/2022 High risk surgery, pre-opera tive cardiovascular examination 10/04/2021 08/22/2022 Abnormal results of liver function studies 09/23/2021 08/22/2022 Essential (primary) hypertension 09/23/2021 06/11/2023 Encounter for other preprocedural examination 09/24/1908/22/2022 Pre-transplant evaluation fo r chronic liver disease 09/23/2021 08/22/2022 Autoimmune hepatitis 09/23/2021 023 Other cirrhosis of liver 06/08/202107/2022 Constipation 12/19/2019 06/11/2023 Hypothyroidism 08/22/2019 06/11/2023 Encounters Date Type Department Care Team Description 09/02/2024 Telephone [facility] Liver Transplant at [place] [address] [facility] [address] [place] [phone] Junie Aggarwal, MARCOS Results 08/31/2024 Results Follow-Up [facility] Advanced Heart Failure at [facility] [address] [facility] [address] [place] [phone] Beth Crowe DNP B Natriuretic Peptide 08/30/2024 1:00 PM EDT Office Visit [facility] Ophthalmology at [place] [address] [facility] [address] [place] [phone] Carlos Young MD 08/29/2024 Results Follow-Up [facility] Gastroenterology at [facility] [address] [facility] [address] [place] [phone] Kolton Martinez MD DXA bone density axial skeleton 08/27/2024 Rx Prior Authorization [facility] [address] [place] [address] Margarette Fletcher, RXT 08/27/2024 Orders Only [facility] Advanced Heart Failure at [facility] [address] [facility] [address] [place] [address] Beth Crowe DNP 08/26/2024 Telephone [facility] I.D.C. at [facility] [address] [place] [address] Shalonda Ruiz MD Appointment (Appointment Confirmed - Called patient to reschedule/change 11/07/[address] Corona from Dr. Ruiz, who will be still on service. agreed due to travel from a distant area.) 08/23/2024 Telephone [facility] Endocrinology at [facility] [address] [facility] [address] [place] [phone] Vandana Holden MD Appointment 08/22/2024 Telephone [facility] Liver Transplant at [facility] [address] [facility] [address] [place] [address] Junie Aggarwal, RN Results 08/21/2024 Results Follow-Up [facility] Advanced Heart Failure at [facility] [address] [facility] [address] [place] [phone] Beth Crowe DNP Ferritin, Iron Studies (Iron + TIBC), B Natriuretic Peptide, Transferrin Receptor, Soluble 08/20/2024 1:00 PM EDT Specimen [facility] Outreach Lab [address] [place] [phone] Kolton Martinez MD S/P liver transplant ([facility]); Immunosuppression ([facility]); Iron deficiency; Chronic systolic heart failure ([facility]) 08/20/2024 10:14 AM EDT - 08/20/2024 11:59 PM EDT Hospital Encounter [facility] Radiology [address] [place] [phone] Kolton Martinez MD Liver replaced by transplant ([facility]); Immunosuppressive management encounter following liver transplant ([facility]); Encounter for therapeutic drug monitoring; Osteoporosis, unspecified osteoporosis type, unspecified pathological fracture presence; History of steroid therapy Discharge Disposition: Home or Self Care WITHOUT Home Care Services 08/20/2024 Telephone [facility] Liver Transplant at [facility] [address] [facility] [address] [place] [address] Junie Aggarwal, MARCOS Results 08/20/2024 Refill [facility] Ophthalmology at [facility] [address] [facility] [address] [place] [phone] Zach Treviño MD 08/16/2024 Orders Only [facility] Gastroenterology at [facility] [address] [facility] [address] [place] [phone] Enrike Mims MD Biliary stricture (Primary Dx); S/P liver transplant ([facility]) 08/16/2024 Telephone [facility] Gastroenterology at [facility] [address] [facility] [address] [place] [address] Enrike Mims MD Procedure (/REPEAT ERCP) 08/14/2024 Orders Only [facility] Advanced Heart Failure at [facility] [address] [facility] [address] [place] [address] Beth Crowe DNP 08/14/2024 Telephone [facility] Advanced Heart Failure at [facility] [address] [facility] [address] [place] [address] Beth Crowe DNP Medical Management (Plan of Care Inquiry/Question ) 08/01/2024 12:23 PM EDT - 08/01/2024 11:59 PM EDT Hospital Encounter [facility] MRI [address] [place] [address] Genet Cha MD Atrial mass Discharge Disposition: Home or Self Care WITHOUT Home Care Services 07/30/2024 Telephone [facility] Liver Transplant at [address] [place] [address] Junie Aggarwal, risk advisor Only 07/26/2024 Orders Only [facility] Liver Transplant at [address] [place] [address] Kolton Martinez MD 07/24/2024 Telephone [facility] Liver Transplant at [address] [place] [address] Junie Aggarwal, risk advisor Only 07/22/2024 Telephone [facility] Specialty [facility] [address] [place] [address] Carlin Harris, [facility] Medication Management ([facility]: Transplant Reassessment) 07/18/2024 Refill [facility] Ophthalmology at [address] [place] [phone] Amelie Brito, MARCOS 07/08/2024 Telephone [facility] Advanced Heart Failure at [facility] [address] [facility] [address] [place] [phone] Beth Crowe DNP Medical Management (Plan of Care Inquiry/Question ) 07/05/2024 Pharmacy Services [facility] [address] [place] [address] Amena Groves, SALAZAR 07/05/2024 Orders Only [facility] Advanced Heart Failure at [facility] [address] [facility] [address] [place] [address] Beth Crowe DNP 07/05/2024 Pharmacy Services [facility] Outpatient Pharmacy at [address] [place] [phone] Barbara Patterson, PharmD 07/05/2024 Telephone [facility] Advanced Heart Failure at [facility] [address] [facility] [address] [place] [address] Beth Crowe DNP 07/05/2024 Telephone [facility] Advanced Heart Failure at [facility] [address] [facility] [address] [place] [address] Beth Crowe DNP Medical Management (Plan of Care Inquiry/Question ) 07/02/2024 12:30 PM EDT Office Visit [facility] Advanced Heart Failure at [facility] [address] [facility] [address] [place] [address] Genet Cha MD Albert, Bonnie, DNP Iron deficiency (Primary Dx); Chronic systolic heart failure ([facility]) 07/02/2024 9:58 AM EDT - 07/02/2024 11:59 PM EDT Hospital Encounter [facility] Echocardiography at [facility] [address] [place] [address] Genet Cha MD Acute on chronic HFrEF (heart failure with reduced ejection fraction) ([facility]) Discharge Disposition: Home or Self Care WITHOUT Home Care Services 06/27/2024 Refill [facility] Ophthalmology at [place] [address] [facility] [address] [place] [address] Jas Sierra MD 06/19/2024 Refill [facility] Ophthalmology at [place] [id number] [place] [address] oKlton Martinez MD S/P liver transplant ([facility]); Immunosuppression ([facility]) 06/19/2024 Refill [facility] Ophthalmology at [place] [address] [facility] [address] [place] [address] Kolton Martinez MD S/P liver transplant ([facility]); Immunosuppression ([facility]) from Last 3 Months Immunizations Immunization Administration Dates Next Due COVID-19, mRNA, Moderna monovalent, age 12+ /11/2020,05/27/2020,04/27/2020 Influenza, high-dose, [place] valent, preservative-free 01/23/2023,02/27/2022 Influenza, trivalent, with preservative 01/17/20 19 Influenza, unspecified 11/19/2019 Pneumococcal conjugate, 20-valent 11/15/2021 Pneumococcal polysaccharide, 23-valent 8 Zoster, recombinant 03/16/2021,12/08/2020 tdap 03/21/2016 Family History Medical History Relation Comments Anesthesia problems Neg Hx Relation Status Comments Father Mother Sister 1 Sister 2 Alive Sister 3 Alive Social History Tobacco Use Types Packs/Day Years Used Date Smoking Tobacco: Never Smokeless Tobacco: Never Tobacco Cessation:Counseling Given: Not Answered Alcohol Use Standard Drinks/Week Comments Never 0 (1 standard drink = 0.6 oz pur e alcohol) Utilities Answer Date Recorded In the past 12 months has th e Informed Trades, gas, oil, or water company threatened to [...] Mass Index 19.73 07/02/2024 11:34 AM EDT Plan of Treatment Upcoming Encounters Date Type Department Care Team (Late st Contact Info) Description 10/10/2024 12:31 PM EDT Hospital Encounter [facility] ENDOSCOPY [address] [place] [phone] Enrike Mims MD [address] [place] [address] 10/10/2024 12:31 PM EDT - 10/10/2024 2:01 PM EDT Surgery [facility] ENDOSCOPY [address] [place] [phone] Enrike Mims MD [address] [place] [address] ERCP Scheduled Procedures Name Priority Associated Diagnoses Date/Ti me 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 EDT Health Maintenance Due Date Last Done Comments Abnormal Colonoscopy Follow Up 1950 Depression Monitoring (PHQ-9) 1950 Immunization: Hepatitis A (1 of 2 - Risk 2-dose series) 1968 Cologuard (FIT-DNA) 1994 Stool Testing (gFOBT) 1994 Immunization: COVID-19 ( season) 2023 02/15/2021, 05/27/2020, 04/27/2020 Immunization: RSV (Adult) (1 - 1-dose 75+ series) 2024 Thyroid Function/TSH (MyChart) 01/09/2025 1 , 10/31/2023, 09/25/2023, Additional history exists Renal Function/GFR 08/30/2025 08/30/2024, 0 08/20/2024, 05/27/2024, Additional history exists Immunization: DTaP/Tdap/Td ( 2 - Td or Tdap) 03/21/2026 03/21/2016 Colonoscopy 03/19/2031 03/19/2021 (Perf ormed Elsewhere) Colorectal Cancer Screening (MyChart) 03/19/2031 Immunization: Zoster Completed 03/16/2021, 12/09/19 21 Immunization: Pneumococcal Completed 11/15/2021, Immunization: Influenza (MyChart) Completed 02/02/2024, 01/23/2023, 02/27/2022, Additional history exists Medical Devices Implanted Type Area Footwear Factory Worker Device Identifier Shelf Expiration Date Model / Serial / Lot Mesh Surgical Phasix Sepra Yzee-3-[id number] erate Rectangle L8 In X W4 In Monofilament Resorbable Hernia Repair Intraabdominal Placement - [id number] Implanted:Qty: 1 on 07/01/2022 by Kelechi Bland III, MD at [facility] Main Mesh N/A: Abdomen DAVOL 03/16/2023 [id number] / / [id number] Liver Implanted:Qty: 1 on 06/28/2022 by Kelechi Bland III, MD at [facility] Organ N/A: Abdomen [id number] / / Screw Bn 90mm 6.5mm Cnn Asns Ns Lf - [id number] Implanted:Qty: 1 on 02/01/2023 by Zion Ojeda MD at [facility] Screw Left: Hip MAGIDEL Arccos [id number] / / Screw Bone Asnis Iii Titanium L90 Mm Od6.5 Mm Fully Threaded Cannulated Self Tapping Drilling Sterile - [id number] Implanted:Qty: 2 on 02/01/2023 by Zion Ojeda MD at [facility] Screw Left: Hip MAGDIEL Captronic SystemsMEDICA [id number] / / Sphere Embolization Embosphere Trisacryl Gelatin 300-500 Um 2 Ml 20 Ml Prefill Saline Syringe Compressible Nonaggregate Sterile Blue - [id number] Implanted:Qty: 1 on 12/23/2022 by Dennis Rey MD at [facility] Main Stent Prostate BIOSPHERE MEDICAL 03/20/2025 [id number] / 3 / [id number] Coil Embl 2cm 2mm Concerto Poly Lac Co Glyc Acd 3d Jennifer Dtch Cmplx Frm Resheathable - S2 Implanted:Qty: 1 on 12/23/2022 by Dennis Rey MD at [facility] Stent Rectum COVIDIEN 04/12/2025 PV-2-2-3D / 2 / [id number] Coil Embl 2cm 2mm Concerto Poly Lac Co Glyc Acd 3d Jennifer Dtch Cmplx Frm Resheathable - S2 Implanted:Qty: 1 on 12/23/2022 by Dennis Rey MD at [facility] Stent Prostate COVIDIEN 04/12/2025 PV-2-2-3D / 2 / [id number] Stent Cor 18mm 3mm [place] Frntr Rx Strl Lf Implanted:Qty: 1 on 03/21/2023 by Honorio Webber MD at [facility] Stent Right: Coronary [employer] 12/12/2025 [id number] / / [id number] Description:MID RCA Stent Cor 38mm 2.5mm Jose Frntr Rx Strl Lf Implanted:Qty: 1 on 03/21/2023 by Honorio Webber MD at [facility] Stent Left: Coronary [employer] 08/28/2025 [id number] / / [id number] Description:MID LAD Cor Stnt 3.5mm 48mm Sng Xd Everolimus Sys Implanted:Qty: 1 on 03/21/2023 by Honorio Webber MD at [facility] Stent Left: Coronary BS 10/30/2024 [id number] / / [id number] Description:prox LAD Stent Cor 38mm 3mm Jose Frntr Rx Strl Lf Implanted:Qty: 1 on 03/21/2023 by Honorio Webber MD at [facility] Stent Right: Coronary [employer] 09/02/2025 [id number] / / [id number] Description:MID RCA Stent 10mm Santiago 6cm Shrt Wre Chet Carmichael Hilar Rgn [place] Viabil Eprsth 200cm Escp - [id number] Implanted:Qty: 1 on 04/05/2024 by Enrike Mims MD at [facility] Stent N/A: Bile Duct CONMED 01/10/2027 [id number] / / Washer Orthopedic Asnis Iii Titanium Large Nonsterile Disposable 6.5/8 Mm Cannulated Screw - [id number] Implanted:Qty: 3 on 02/01/2023 by Zion Ojeda MD at [facility] Washer Left: Hip MAGDIEL HOWMEDICA [id number] / / Explanted Type Area Footwear Factory Worker Device Identifier Shelf Expiration Date Model / Serial / Lot Stent Santiago 7fr 7cm Ddnl Bnd Dlv Sys Rx Brb To Brb Preld Advanix Pls 3.2mm Wrk nl - [id number] Implanted:Qty: 1 on 05/16/2023 by Enrike Mims MD at [facility] Explanted:Qty: 1 on 09/25/2023 by Enrike Mims MD at [facility] Stent [employer] 04/04/2025 [id number] / / [id number] Stent Pancreatic Zimmon Polyethylene Pigtail Curve L7 Cm Od5 Fr Taper Tip Sterile Disposable Blue - [id number] Implanted:Qty: 1 on 01/09/2023 by Enrike Mims MD at [facility] Explanted:Qty: 1 on 09/25/2023 by Enrike Mims MD at [facility] Stent [facility] 08/11/2025 [id number] / / [id number] Stent Santiago 10fr 7cm Ddnl Bnd Dlv Sys Radopq Preld Rx Advanix Pls Disp Acpt .035in Gw - [id number] Implanted:Qty: 1 on 09/25/2023 by Enrike Mims MD at [facility] Explanted:Qty: 1 on 12/25/2023 at [facility] Stent N/A: Bile Duct [employer] 06/19/2024 [id number] / / Stent Santiago 10fr 7cm Ddnl Bnd Temp Rx Advanix Pls Disp Acpt .035in Gw - [id number] Implanted:Qty: 1 on 12/25/2023 by Enrike Mims MD at [facility] Explanted:Qty: 1 on 04/05/2024 by Enrike Mims MD at [facility] Stent N/A: Bile Duct [employer] 01/23/2025 [id number] / / [id number] Stent Santiago 10fr 7cm Ddnl Bnd Temp Rx Advanix Pls Disp Acpt .035in Gw - [id number] Implanted:Qty: 1 on 12/25/2023 by Enrike Mims MD at [facility] Explanted:Qty: 1 on 04/05/2024 by Enrike Mims MD at [facility] Stent N/A: Bile Duct [employer] 01/23/2025 [id number] / / [id number] Device Closure Perclose Proglide Od6 Fr Vascular Suture Mediate Knot Push Sterile Disposable Explanted:Qty: 2 on 03/21/2023 at [facility] [employer] [id number] / / Procedures Procedure Name Priority Date/Time Associated Diagnosis Comments COLOR FUNDUS PHOTOGRAPHY - OU - BOTH EYES Routine 08/30/2024 12:16 PM EDT Anatomical narrow angle OCT RETINA/MACULA-BOTH EYES Routine 08/30/2024 12:10 PM EDT Anatomical narrow angle B NATRIURETIC PEPTIDE Routine 08/30/2024 11:51 AM EDT Chronic systolic heart failure ([facility]) HEPATIC FUNCTION PANEL Routine 08/30/2024 11:51 AM EDT S/P liver transplant ([facility]) RENAL FUNCTION PANEL W/EGFR Routine 08/30/2024 11:51 AM EDT S/P liver transplant ([facility]) CBC Routine 08/30/2024 11:51 AM EDT S/P liver transplant ([facility]) DIFFERENTIAL Routine 08/30/2024 11:51 AM EDT S/P liver transplant ([facility]) CYCLOSPORINE LEVEL Routine 08/30/2024 11 :51 AM EDT S/P liver transplant ([facility]) Immunosuppression ([facility]) DXA BONE DENSITY AXIAL SKELETON Routine 08/20/2024 1:03 PM EDT Liver replaced by transplant ([facility]) Immunosuppressive management encounter following liver transplant [facility] [facility]) Encounter for therapeutic drug monitoring Osteoporosis, unspecified osteoporosis type, unspecified pathological fracture presence History of steroid therapy IRON STUDIES Routine 08/20/2024 10:26 AM EDT Iron deficiency FERRITIN Routine 08/20/2024 10:26 AM EDT Iron deficiency CYCLOSPORINE LEVEL Routine 08/20/2024 10 :26 AM EDT S/P liver transplant ([facility]) Immunosuppression ([facility]) B NATRIURETIC PEPTIDE Routine 08/20/2024 9:59 AM EDT Chronic systolic heart failure ([facility]) TRANSFERRIN RECEPTOR, SOLUBLE Routine 08/20/2024 9:59 AM EDT Iron deficiency HEPATIC FUNCTION PANEL Routine 08/20/2024 9:59 AM EDT S/P liver transplant ([facility]) RENAL FUNCTION PANEL W/EGFR Routine 08/20/2024 9:59 AM EDT S/P liver transplant ([facility]) CBC Routine 08/20/2024 9:59 AM EDT S/P liver transplant ([facility]) DIFFERENTIAL Routine 08/20/2024 9:59 AM EDT S/P liver transplant ([facility]) MRI CARDIAC W AND WO CONTRAST Routine [...] HFrEF (heart failure with reduced ejection fraction) ([facility]) TSH Routine 01/10/2024 1:32 PM EDT Hypothyroidism, unspecified type from Last 3 Months or Most Recently Relevant to Health Maintenance Results * Color Fundus Photography - OU - Both Eyes (08/30/2024 12:16 PM EDT) 08/30/2024 Narrative [facility] - 08/30/2024 3:17 PM EDT [Fundus exam] Carlos Young MD OPHTHALMOLOGY SERVICES ORDERABLE S Final Result Performing Organization Address City/[facility]/ZIP Co de Phone Number [facility] * OCT Retina/Macula- Both Eyes (08/30/2024 12:10 PM EDT) 08/30/2024 Narrative [facility] - 08/30/2024 3:17 PM EDT Date of Test/Procedure Date: 08/30/2024. Notes Good foveal contour OS Carlos Young MD OPHTHALMOLOGY SERVICES ORDERABLE S Final Result Performing Organization Address City/[facility]/ZIP Co de Phone Number [facility] * Hepatic [...] - 39 U/L 08/30/2024 2:47 PM EDT [facility] ALT 8 7 - 52 U/L 08/30/2024 2:47 PM EDT [facility] Alkaline Phosphatase 86 36 - 125 U/L 08/30/2024 2:47 PM EDT [facility] Total Protein 6.6 6.4 - 8.9 g/dL 08/30/2024 2:47 PM EDT [facility] Albumin 3.9 3.5 - 5.7 g/dL 08/30/2024 2:47 PM EDT [facility] Bilirubin, Indirect 0.69 0.00 - 1.10 mg/dL 08/30/2024 2:47 PM EDT [facility] Plasma 08/30/2024 11:5 1 AM EDT 08/30/2024 2:16 PM EDT Narrative [facility] - 08/30/2024 2:47 PM EDT Standing liver transplant labs. Please fax results to [phone]. Call critical results to [phone]. Kolton Martinez MD LAB BLOOD ORDERABLES Kalli l Result [facility] [address] * (ABNORMAL) Renal Function Panel w/EGFR (08/30/2024 11:51 AM EDT) Only the most recent of2 resultswithin the time period is included. Sodium 136 133 - 146 mmol/L 08/30/2024 2:47 PM EDT [facility] Potassium 4.4 3.5 - 5.3 mmol/L 08/30/2024 2:47 PM EDT [facility] Comment:Hemolysis Present: R esults may be influenced artificially. Recommend recollection as clinically indicated. Chloride 101 98 - 110 mmol/L 08/30/2024 2:47 PM EDT [facility] CO2 25 21 - 33 mmol/L 08/30/2024 2:47 PM EDT [facility] Anion Gap 10 3 - 16 mmol/L 08/30/2024 2:47 PM EDT [facility] BUN 29(H) 7 - 25 mg/dL 08/30/2024 2:47 PM EDT [facility] Creatinine 1.09 0.60 - 1.30 mg/dL 08/30/2024 2:47 PM EDT [facility] Glucose 95 70 - 100 mg/dL 08/30/2024 2:47 PM EDT [facility] Calcium 9.1 8.6 - 10.3 mg/dL 08/30/2024 2:47 PM EDT [facility] Phosphorus 2.9 2.1 - 4.5 mg/dL 08/30/2024 2:47 PM EDT [facility] Comment:HEMOLYSIS EVIDENT. R ESULTS MAY BE INFLUENCED. Albumin 3.9 3.5 - 5.7 g/dL 08/30/2024 2:47 PM EDT [facility] Osmolality, Calculated 288 278 - 305 mOsm/kg 08/30/2024 2:47 PM EDT [facility] EGFR 71 08/30/2024 2:47 PM EDT [facility] Comment:As of 2021, the estimated [...] AM EDT 08/30/2024 2:16 PM EDT Narrative [facility] - 08/30/2024 2:47 PM EDT Standing liver transplant labs. Please fax results to [phone]. Call critical results to [phone]. Kolton Martinez MD LAB BLOOD ORDERABLES Kalli grider Result [facility] [address] [facility] [place] [address], [facility] * (ABNORMAL) Cyclosporine level (08/30/2024 11:51 AM EDT) Only the most recent of2 resultswithin the time period is included. Pathologist [facility] Cyclosporine, LC/MS 350.7(H) 100.0 - 350.0 ng/mL 08/31/2024 3:24 PM EDT [facility] Comment:Performed via liquid chromatography tandem mass spectrometry. Detection limit: 20 ng/mL. Individual target concentrations may vary due to target organ and time after transplant. This test has been developed and its performance characteristics determined by [facility] which is certified under the Clinical [...] AM EDT 08/30/2024 2:20 PM EDT Narrative [facility] - 08/31/2024 3:24 PM EDT Standing liver transplant labs. Please fax results to [phone]. Call critical results to [phone]. us Kolton Martinez MD LAB BLOOD ORDERABLES Kalli grider Result [facility] [address] [place] [address], [facility] * Differential (08/30/2024 11:51 AM EDT) Only the most recent of2 resultswithin the time period is included. Pathologist [facility] Neutrophils Relative 75.5 40.0 - 80.0 % 08/30/2024 2:34 PM EDT [facility] Lymphocytes Relative 17.6 15.0 - 45.0 % 08/30/2024 2:34 PM EDT [facility] Monocytes Relative 5.4 0.0 - 12.0 % 08/30/2024 2:34 PM EDT [facility] Eosinophils Relative 1.1 0.0 - 8.0 % 08/30/2024 2:34 PM EDT [facility] Basophils Relative 0.4 0.0 - 1.0 % 08/30/2024 2:34 PM EDT [facility] nRBC 0 0 - 0 /100 WBC 08/30/2024 2:34 PM EDT [facility] Neutrophils Absolute 6,116 1,520 - 8,640 /uL 08/30/2024 2:34 PM EDT [facility] Lymphocytes Absolute 1,426 570 - 4,860 /uL 08/30/2024 2:34 PM EDT [facility] Monocytes Absolute 437 0 - 1,296 /uL 08/30/2024 2:34 PM EDT [facility] Eosinophils Absolute 89 0 - 864 /uL 08/30/2024 2:34 PM EDT [facility] Basophils Absolute 32 0 - 108 /uL 08/30/2024 2:34 PM EDT [facility] Whole Blood 08/30/2024 11:5 1 AM EDT 08/30/2024 2:16 PM EDT Narrative [facility] - 08/30/2024 2:34 PM EDT Standing liver transplant labs. Please fax results to [phone]. Call critical results to [phone]. us Kolton Martinez MD LAB BLOOD ORDERABLES Kalli grider Result [facility] [address] * (ABNORMAL) CBC (08/30/2024 11:51 AM EDT) Only the most recent of2 resultswithin the time period is included. WBC 8.1 3.8 - 10.8 10E3/uL 08/30/2024 2:34 PM EDT [facility] RBC 4.09(L) 4.20 - 5.80 10E6/uL 08/30/2024 2:34 PM EDT [facility] Hemoglobin 13.1(L) 13.2 - 17.1 g/dL 08/30/2024 2:34 PM EDT [facility] Hematocrit 38.8 38.5 - 50.0 % 08/30/2024 2:34 PM EDT [facility] MCV 94.9 80.0 - 100.0 fL 08/30/2024 2:34 PM EDT [facility] MCH 32.0 27.0 - 33.0 pg 08/30/2024 2:34 PM EDT [facility] MCHC 33.7 32.0 - 36.0 g/dL 08/30/2024 2:34 PM EDT [facility] RDW 15.1(H) 11.0 - 15.0 % 08/30/2024 2:34 PM EDT [facility] Platelets 280 140 - 400 10E3/uL 08/30/2024 2:34 PM EDT [facility] MPV 9.3 7.5 - 11.5 fL 08/30/2024 2:34 PM EDT [facility] Whole Blood 08/30/2024 11:5 1 AM EDT 08/30/2024 2:16 PM EDT Narrative [facility] - 08/30/2024 2:34 PM EDT Standing liver transplant labs. Please fax results to [phone]. Call critical results to [phone]. Kolton Martinez MD LAB BLOOD ORDERABLES Kalli grider Result [facility] [address] [id number], [facility] * (ABNORMAL) B Natriuretic Peptide (08/30/2024 11:51 AM EDT) Only the most recent of2 resultswithin the time period is included. BNP 966(H) 0 - 100 pg/mL 08/30/2024 2:45 PM EDT [facility] Comment: BNP may be increased in the presence of sacubitril/valsartan (Entresto). Please interpret accordingly. Plasma 08/30/2024 11:5 1 AM EDT 08/30/2024 2:16 PM EDT Narrative [facility] - 08/30/2024 2:45 PM EDT The presence of high concentrations of biotin may cause falsely lowered BNP results. Biotin interference may be seen if an individual is taking >5 mg biotin per day. Interpret BNP results in the context of the patient's clinical presentation. us Bethansley Crowe [facility] BLOOD ORDERABLES Final Res ult [facility] [address] [place] [address], [facility] * DXA bone density axial skeleton (08/20/2024 [...] Immunosuppressive management encounter following liver transplant (CMS-HCC); Encounter for therapeutic drug monitoring; Osteoporosis, unspecified osteoporosis type, unspecified pathological fracture presence; History of steroid therapy TECHNICAL: Bone mineral density analysis was performed on a SolarEdge/RevcasterXA scanner. ARTIFACTS: There is lumbar spondylosis which [...] mineral density analysis was performed on a Personal On Demand iDXAscanner. ARTIFACTS: There is lumbar spondylosis which [...] - 212 ug/dL 08/20/2024 11:03 AM EDT [facility] % Iron Saturation 17.3 15.0 - 55.0 % 08/20/2024 11:03 AM EDT [facility] TIBC 342 261 - 462 ug/dL 08/20/2024 11:03 AM EDT [facility] Serum 08/20/2024 10:2 6 AM EDT 08/20/2024 10:26 AM EDT us Beth Crowe [facility] BLOOD ORDERABLES Final Res ult [facility] [address] [place] [address], [facility] * Ferritin (08/20/2024 10:26 AM EDT) Ferritin 150.2 23.9 - 336.2 ng/mL 08/20/2024 11:17 AM EDT [facility] Serum 08/20/2024 10:2 6 AM EDT 08/20/2024 10:26 AM EDT Beth Crowe [facility] BLOOD ORDERABLES Final Res ult Performing Organization Address City/[facility]/ZIP Co de Phone Number [facility] [address] * Transferrin Receptor, Soluble (08/20/2024 9:59 AM EDT) Transferrin Receptor 14.9 12.2 - 27.3 nmol/L 08/22/2024 6:20 AM EDT [facility] Serum 08/20/2024 9:59 AM EDT 08/22/2024 7:06 AM EDT Narrative [facility] - 08/22/2024 7:06 AM EDT PERFORMED AT: [facility] [id number] TAILER OFF: Coral Aguilera MD PHONE: [phone] Beth Crowe [facility] BLOOD ORDERABLES Final Res ult Performing Organization Address [facility] Co de Phone Number [facility] [address] [place] [address], [facility] * MRI Cardiac W WO contrast (08/01/2024 [...] chest CT. Thank you for referring to [facility] Cardiac Magnetic Resonance Imaging. Report Verified by: Goyo Campos MD at 08/08/2024 7:58 AM EDT Narrative 08/08/2024 7:58 AM EDT Exam: MRI CARDIAC W AND WO CONTRAST Comparison: CT chest dated 05/09/2023 Contrast: 15 mL of GADOBUTROL 1 MMOL/ML INTRAVENOUS SYRINGE ([facility]) administered intravenously Indication: atrial mass; Atrial mass [...] fat saturation Scanner Giana: 1.5T Scanner Vendor: SolarEdge Exam Quality: excellent Findings: QUALITATIVE IMPRESSIONS: Left [...] mL of GADOBUTROL 1 MMOL/ML INTRAVENOUS SYRINGE ([facility])administered intravenously Indication: atrial mass; Atrial mass Patient [...] fat saturation Scanner Giana: 1.5T Scanner Vendor: SolarEdge Exam Quality: excellent Findings: QUALITATIVE IMPRESSIONS: Left [...] chest CT. Thank you for referring to [facility] Cardiac Magnetic Resonance Imaging. Report Verified by: Goyo Campos MD at 08/08/2024 7:58 AM EDT us Genet Cha MD IMG MRI ORDERABLES Final Res ult * POC eGFR (08/01/2024 1:34 PM EDT) [facility] POC [id number] 08/01/2024 1:41 PM EDT HEALTH LAB [...] Amos C, Desiree M, Jarrod DC, Eliu VALERIO, Suzy EPSTEIN, Chance LA, et al. A Unifying Approach for GFR Estimation: Recommendations of the NKF-ASN Task Force on Reassessing the inclusion of Race in Diagnosing Kidney Disease. Am J Kidney Dis. 2020. Blood, Arterial 08/01/2024 1 :34 PM EDT 08/01/2024 1:41 PM EDT Genet Cha MD LAB BLOOD ORDERABLES Final R esult [facility] [address] * POC Sample Type (08/01/2024 1:34 PM EDT) [facility] POC Sample Type Unspecified 08/01/2024 1:41 PM EDT [facility] Blood, Arterial 08/01/2024 1 :34 PM EDT 08/01/2024 1:41 PM EDT Genet Cha MD POINT OF CARE TEST ORDERABLE S Final Result Performing Organization Address [facility] Co de Phone Number [facility] [address] [facility] * (ABNORMAL) POC hematocrit (08/01/2024 1:34 PM EDT) [facility] POC Hematocrit 37.0(L) 40 - 52 % 08/01/2024 1:41 PM EDT [facility] Blood, Arterial 08/01/2024 1 :34 PM EDT 08/01/2024 1:41 PM EDT Genet Cha MD POINT OF CARE TEST ORDERABLE S Final Result Performing Organization Address City/[facility]/ZIP Co de Phone Number [facility] [address] * POC creatinine (08/01/2024 1:34 PM EDT) Pathologist [facility] POC Creatinine 1.06 0.60 - 1.30 mg/dL 08/01/2024 1:41 PM EDT [facility] Blood, Arterial 08/01/2024 1 :34 PM EDT 08/01/2024 1:41 PM EDT Genet Cha MD POINT OF CARE TEST ORDERABLE S Final Result [facility] [address] [facility] * (ABNORMAL) POC Hemoglobin (08/01/2024 1:34 PM EDT) POC Hemoglobin 12.7(L) 14.0 - 18.0 g/dL 08/01/2024 1:41 PM EDT [facility] Blood, Arterial 08/01/2024 1 :34 PM EDT 08/01/2024 1:41 PM EDT Genet Cha MD POINT OF CARE TEST ORDERABLE S Final Result Performing Organization Address City/[facility] Co de Phone Number [facility] [address] [facility] * ECHO COMPLETE W/ STRAIN (07/02/2024 10:43 AM EDT) Anatomical Region Laterality Modality Chest Ultrasound 07/02/2024 10:1 7 AM EDT Narrative 07/05/2024 11:12 AM EDT * [facility] - Echocardiology Lab* [address] [place] [address], [address] [place] [address] Transthoracic Echocardiogram Patient: René Cornejo Room: echolab Height: 69in MR Number: [id number] : 1950 Weight: 110lb Account: [id number] Gender: M BP: Study Date: 07/02/2024 Age: 74 BSA: 1.54m^2 Referring physician: Interpreting physician: Ann Ding MD PERFORMING [facility]-Ann Ding LIME KILN AND RECAUSTICIZING OPERATOR Jovana Wright [facility] Genet Cha MD ATTENDING Genet Cha MD Procedure:TRANSTHORACIC ECHO (TTE) Order: Accession COMPLETE Number:[id number] Indications: Acute on chronic heart failure with [...] 2.1 2.1 FS (H) 3069 % 25 43 PW, ED (L) 0.5 cm 0.6 - 1.0 1.2 IVS/PW, ED 1.19 --------- 0.83 EDV (N) 128 ml 62 - 150 83 ESV (H) 71 ml 21 - 61 51 EF (L) -[id number] % 52 - 72 39 SV 71 [...] cm/sec --------- TDI E'/a', lat 0.89 --------- gali, TDI S', lat gail, 3.0 cm/sec --------- [...] Reviewed and confirmed by Ann Ding MD [id number] Procedure Note Ann Ding MD - 07/05/2024 * [facility] - EchocardiologyLab* [address] [place] [address], [place] [address] Transthoracic Echocardiogram Patient: René Cornejo [facility] Height: 69in MR Number: [id number] : 1950 Weight:110lb Account: [id number] Gender: M BP: Study Date: 07/02/2024 Age: 74 BSA:1.54m^2 Referring physician: Interpreting physician: Ann Ding MD PERFORMING [facility]Ann Ding LIME KILN AND RECAUSTICIZING OPERATOR Jovana Wright MD ATTENDING Genet Cha MD Procedure:TRANSTHORACIC ECHO (TTE) Order: Accession COMPLETE Number:[id number] Indications: Acute on chronic heart failure with [...] ml 21 - 61 51 EF (L) -[id number] % 52 - 72 39 SV 71 [...] Reviewed and confirmed by Ann Ding MD [id number] us Genet Cha MD CV ECHO ORDERABLES Final Res ult * TSH (Thyroid Stimulating Hormone) (01/10/2024 1:32 PM EDT) TSH 1.99 0.45 - 4.12 uIU/mL 01/10/2024 2:15 PM EDT [facility] Serum 01/10/2024 1:32 PM EDT 01/10/2024 1:32 PM EDT us Vandana Holden MD LAB BLOOD ORDERABLES Final Resul t [facility] [address] [place] [address], [facility] from Last 3 Months or Most Recently Relevant to Health Maintenance Insurance MEDICARE A AND B AAR MEDICARE A AND B AARP Advance Directives For more information, please contact: [phone] * Full Code (Latest Code Status on File) Date Activated Date Inactivated Comments 04/11/2023 2:02 PM 04/22/2023 9:53 PM * Full Code Date Activated Date Inactivated Comments 03/21/2023 5:14 PM 03/28/2023 12:14 AM * Full Code Date Activated Date Inactivated Comments 03/16/2023 3:22 AM 03/21/2023 5:14 PM * Full Code Date Activated Date Inactivated Comments 01/30/2023 7:32 PM 02/06/2023 9:58 PM * Full Code Date Activated Date Inactivated Comments 09/12/2022 3:50 PM 09/30/2022 10:43 PM Care Teams Surgical Manager Relationship Specialty Start Date End Date Carlos Dominguez DO [address] [place] [address] [place] [address] PCP - General Internal Medicine 04/05/24 Samaria Price MD [address] [place] [address] Hematology/[place] [phone] Medical Oncologist [facility] Medical Oncology 10/20/21 Jasmin Marshall CNP [address] [facility] Hematology/[place] [phone] Nurse Practitioner [facility] Hematology and Oncology 10/20/21 Megan Tamez, RN Nurse Clinician Medical Oncology 10/20/21 Junie Aggarwal, MARCOS Txp Post Coordinator Manager Leadership Development 10/14/22 Ese Johnson, NahunD Pharmacist Pharmacist 10/17/22
--- OUTSIDE RECORDS SUMMARY | 2024-09-09 09:43 | XMS_ITS ---
Author Organization 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 2022 Encounter for therapeutic drug monitoring 2022 Immunosuppression 02/14/2023 Pleural effusion, not elsewhere classified 01/31 Solitary pulmonary nodule 01/31/2023 Insomnia, unspecified 01/31/2023 Personal history of urinary (tract) infections 1 04/02/2022 Unspecified fracture of left femur, subsequent encounter for closed fracture with routine healing 01/31/2023 BPH (benign prostatic hyperplasia) 12/07/2022 Benign prostatic hyperplasia 12/07/2022 nursing home (current) use of systemic steroids 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 10/17/2022 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 10/17 Hemiplga [...] transplant recipient 08/09/2022 Coronary artery disease involving [place] coronar y artery 08/09/2022 Assessment & Plan [...] history of malignant neoplasm of liver 03/20/2000 Current Treatment and Therapy Plans Hepatic Chemoembolization or Immunoembolization Plan* Plan Start Date:06/01/2022 Plan Provider:Dennis Rey MD Linked Problems Malignant neoplasm of liver, primary, unspecified as to type ([facility]) Treatment Medications Current Day (Day 1 , Hepatic Chemoembolization Plan or Immunotherapy Plan - Planned for 06/01/2022) No medications scheduled. No medications schedul ed. OP RES HCC Durvalumab ([id number]) / Tremelimumab ([id number], IDS [id number])* Plan Start Date:11/23/2021 Plan Provider:Samaria Price MD Linked Problems HCC (hepatocellular carcinom a) ([facility]-HCC) Treatment Medications Current Day (Day 1 , Cycle 5 - Planned for 04/13/2022) chemo investigational IV infusion CHEMO INVESTIGATIONAL IV ADDITIVE 1,500 mg in sodium chloride 0.9 % 250 mL chemo infusion Past Treatment and Therapy Plans No past plan information found. Lifetime Dose Tracking * Chemical Lifetime Dose Automatic Entry Manual Entr y doxorubicin 52.632 mg/m2 (100 mg) 52.632 mg/m2 (100 m g) 0 mg/m2 (0 mg) Resolved Problems Problem Noted Date Diagnosed Date Resolved Date nursing home (current) use of aspirin 10/17/2022 06/11/2023 Dysphagia, [...]
--- OUTSIDE RECORDS SUMMARY | 2024-09-09 09:43 | XMS_ITS | Data Portability ---
Author Organization MANE - DG Cardenas [facility]OLA CLOSED Address [address] [facility] [address] [place] [address] Care Team Providers Care Denitrator Operator Name Role Phone BRIAN ELDER Primary Care Provider NICKI ISRAEL Metal Bonding Helper Assessment No assessment recorded. Plan of Treatment Reminders Order Date Submit Date Provider Last Modified By Organization Details Last Modified Time Details Appointments FOLLOW UP [facility] 2024 11:00A Deven VIEIRA MD Not available Not available Not available Lab None recorded . Referral None recorded . Procedures None recorded . Surgeries None recorded . Imaging None recorded . Medication Orders None recorded . Patient TargetsNo targets recorded. Patient Instructions Encounter Date Encounter Id Patient Instructions Last Modified By Organization Details Last Modified Time 06/30/2020 [id number] 1. Recommend partial uvulectomy. Full risks, complications, [...] may increase his risk of postoperative bleeding. [email or web address] Not available 06/30/2020 14:25:12 08/28/2020 [id number] 1. Surgical pathology reviewed 2. F/u prn [email or web address] Not available 08/28/2020 13:25:09 Reason for Referral None Reported. Results Created Date Observation Date Name Description Value Unit Range Abnormal Flag Note LastModifiedBy Organization Detail LastModifiedTime 08/12/19 21 07/31/2020 elect mitchell zamora am No observ ation record ed. BARCODE Not Available 2020 10:13:05 Result Notes None recorded. 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 Procedures Surgical History Date Name Laterality Status Provider Name and Address Organization Details Recorded Time 06/29/19 23 transplantation of liver completed Tenisha Rodriges [facility] 07/07/2023 14:22:55 08/14/19 21 EXCISION, UVULA (SURG) completed Charleen Gonzalez [facility] 08/14/2020 12:07:31 03/20/19 12 Unlisted px femur/knee completed Cecille Bianchi [facility] 06/30/2020 13:46:51 Imaging Results None recorded. Procedure [...] Address Organization Details Last Updated DateTime 1 23357.4 g 26.4 kg/m2 177.8 cm 97.3 [degF] 98 % 98 % 73 /min 145 mm[Hg] 86 mm[Hg] [facility] 1 13:50:13 Date Recorded Body height Body mass index (BMI) Body weight Body temperature Heart rate Oxygen saturation Oxygen saturation in Arterial blood by Pulse oximetry Systolic blood pressure Diastolic blood pressure Provider Name and Address Organization Details Last Updated DateTime 177.8 cm 25.9 kg/m2 71457.0 3 g 97.5 [degF] 72 /min 96 % 96 % 106 mm[Hg] 69 mm[Hg] Cristina Wagoner [facility] 13:14:44 Social History Question Answer Notes LastModified by Organizat ion Details LastModified Time Tobacco Smoking Status Former Smoker Cecille Bianchi [facility], [facility] 06/30/2020 13:42:43 How Much Tobacco Do You [...] Pain N Stomach trouble N Heart Attack (ME) N Diabetes N Hyperlipidemia N Epilepsy/Seizures N Heart Disease N Hypertension Y Past Encounters Encounter ID Performer Location Encounter Start Date Encounter Closed Date Diagnosis/Indication Diagnosis SNOMED-CT Code Diagnosis ICD10 Code Diagnosis Note [id number] MD MANE DIEGO III [facility] [address] [place] [address] 06/30/2020 13:17:58 06/30/2020 14:27:01 Edema of uvula 621903204 J39.8 - Elongated Disorder o f uvula of palate 151760013 J39.9 - Elongated Snoring 19358792 R06.83 Essential hypertension 13110461 I10 Pain of ri ght shoulder joint 8850582982 5032395 M25.511 History of cerebellar stroke 8093136087 58202 Z86.73 Dysphagia 03825921 R13.1 0 - Secondary to elongated uvula. [id number] NICOLAS CANTOR III, MD [place] [facility] [address] [place] [address] 08/28/2020 13:07:37 08/28/2020 14:28:34 Edema of uvula 565233597 J39.8 - S/p Partial Uvulectomy (08/13/20) Dysphagia 89866591 R13.1 0 - S/p Partial Uvulectomy (08/13/20) [id number] NICKI BAEZ MD [address] [address] [place] [address] 07/07/2023 13:21:08 07/07/2023 15:16:16 Multiple benign melanocytic nevi 683332858 D22.5 - Benign appearing, reassuranc e- Counseled on importance of daily sun protection and self skin exams/bharat toring for ugly duckling lesions Seborrheic keratosis 394 000096 L82.1 - Benign appearing, reassuranc e Senile angioma 0967855 I 78.1 - Benign appearing, reassuranc e Solar lentigo 34559189 L 81.4 - Benign appearing, reassuranc e Health Concerns Section Related Observation LastModified by Organization Detai ls LastModified Time None Recorded Concern Status LastModified by Organization Details LastModified Time None Recorded Advance Directives Directive None Recorded Payers Insurance Date Sequence Insurance Name Policy Number Policy Nguyen Covered Member ID Nguyen Member ID Guarantor Name 09/06/2024 2 AARP (MEDICARE SUPPLEMENT) PLAN G René Cornejo [id number] René Cornejo 09/06/2024 1 [place] René Cornejo [id number] René Cornejo Notes Date Note Type Note Provider Name and Address Organization Details Recorded Time 06/30/2020 text/html Reén comes in t k[place] for consultation at [...] hypertension. René is doing well otherwise. NICOLAS ACNTOR III, MD [address] [place] [address], [phone], [facility] hospital 06/30/2020 14:26:03 08/28/2020 text/html René returns to [...] no major concerns. NICOLAS CANTOR III, MD [address] [place] [address], [phone], Critical access hospital 08/28/2020 13:29:03 07/07/2023 text/html Patient is here for a full body skin exam. - Last skin check: 01/25/2022.- No history of skin cancer.- Areas of concern: None.- Pt is currently on immunosuppressants - had a liver transplant in 06/28/2022. NICKI BAEZ MD [address] [place] [address], [phone], Critical access hospital 07/10/2023 22:07:14
--- OUTSIDE RECORDS SUMMARY | 2024-09-09 09:43 | XMS_ITS | Clinical Summary ---
Author Organization [facility] Address [facility] MANE Gonsalves [address] Phone Care Team Providers Care Sign Manufacturer Name Role Phone Unavailable Primary Care Provider Unavailabl e Social History Tobacco Use Types Packs/Day Years Used Date Smoking Tobacco: Never Assessed Sex and Gender Information Value Date Recorded Sex Assigned at Not on file Legal Sex Male 10:28 AM EDT Gender Identity Not on file Sexual Orientation Not on file Plan of Treatment Health Maintenance Due Date Last Done Comments Wellness Exam Medicare 1953 Hepatitis C Screening 1967 Cologuard 1994 Colon Cancer Screening 1994 Colonoscopy 1994 FIT 1994 Sigmoidoscopy 1994 Virtual Colonography 1994 COVID-19 Vaccine (2023-2 5 season) 2023 02/15/2021, 05/27/2020, 04/27/2020 RSV or 60+ (1 - 1-dose 75+ series) 2024 Influenza Vaccine (Season Ended) 2024 01/23/2023, 02/27/2022, 01/16/2019 DTaP/TDaP/Td (2 - Td or Tdap) 03/21/2026 03/21/2016 Zoster Completed 03/16/2021, 12/08/2020 Pneumococcal Vaccine 50+ Completed 022, 03/22/2017 Hepatitis B Vaccine Aged Out No longe r eligible based on patient's age to complete this topic Meningococcal B Vaccine Aged Out No l onger eligible based on patient's age to complete this topic Insurance MEDICARE IN PART A AND B MEDICARE [place] PART A AND B SUPPLEMENTAL MEDICARE IN PART A AND B [facility] SUPPLEMENTAL MEDICARE [place] PART A AND B [place]ICARE [place] PART A [place] [address]
== END 2024-09-05 23:59 | disposition home or self-care (01) ==
LOC: LAB.DROPOF 09-09 09:28
PROVIDERS: PCP Internal Medicine; Visit Provider Internal Medicine
DX: N39.0 Urinary tract infection, site not specified (principal)
CPT/HCPCS: 81001; 87086; 87088; 87186

== ENCOUNTER 2024-09-12 14:00 | Outpatient (RCR) | payer MEDICARE, SELFPAY | END 2024-09-12 23:59 | disposition home or self-care (01) | LOC: PT 14:00 | PROVIDERS: PCP Internal Medicine; Visit Provider Internal Medicine Gastroenterology | DX: M21.372 Foot drop, left foot (principal); B44.9 Aspergillosis, unspecified; Z94.4 Liver transplant status; Z91.81 History of falling; Z87.81 Personal history of (healed) traumatic fracture | CPT/HCPCS: 97110; 97116; 97163; 97530 ==

== ENCOUNTER 2024-09-18 09:30 | Outpatient (CLI) | payer MEDICARE, SELFPAY ==
--- OUTSIDE RECORDS SUMMARY | 2022-10-03 05:00 | XMS_ITS | Encounter Summary ---
Author Organization [place] [address] Care Team Providers Care Jewel Sawyer Name Role Phone Unavailable Primary Care Provider Unavailabl e Encounter Details Date Type Department Care Team (Late st Contact Info) Description 10/03/2022 5:00 AM EDT Hospital Encounter [facility] Referral Lab [address] [phone] Eloise Box MD [address] [facility] [address] [place] [address] Social History Tobacco Use Types Packs/Day Years Used Date Smoking Tobacco: Never Assessed Sex and Gender Information Value Date Recorded Sex Assigned at Not on file Legal Sex Male 10:28 AM EDT Gender Identity Not on file Sexual Orientation Not on file documented as of this encounter Plan of Treatment Not on file documented as of this encounter Visit Diagnoses Not on filedocumented in this encounter Orders Lab Orders Without Results Count Last Ordered D ate First Ordered Date RENAL FUNCTION PANEL 1 10/03/2022 documented in this encounter
--- OUTSIDE RECORDS SUMMARY | 2022-10-03 06:00 | XMS_ITS | Encounter Summary ---
Author Organization [place] [address] Care Team Providers Care Manager Chinese Name Role Phone Unavailable Primary Care Provider Unavailabl e Encounter Details Date Type Department Care Team (Late st Contact Info) Description 10/03/2022 6:00 AM EDT Hospital Encounter [facility] Referral Lab [address] [phone] Minh Chacko MD [address] [place] [address] Social History Tobacco Use Types Packs/Day Years [...] 10/03/2022 9:01 AM EDT [facility] BUN 37(H) 8 - 23 mg/dL 10/03/2022 9:01 AM EDT [facility] Creatinine 1.00 0.67 - 1.30 mg/dL 10/03/2022 9:01 AM EDT [facility], [facility] Albumin 3.7 3.2 - 4.6 gm/dL 10/03/2022 9:01 AM EDT [facility], [facility] Total Protein 5.9(L) 6.4 - 8.3 gm/dL 10/03/2022 9:01 AM EDT [facility], [facility] Bili Total 0.5 0.2 - 1.4 mg/dL 10/03/2022 9:01 AM EDT [facility] ALT 19 <=41 U/L 10/03/2022 9:01 AM EDT [facility] AST 15 <=40 U/L 10/03/2022 9:01 AM EDT [facility], [facility] Alk Phos 143(H) 40 - 129 U/L 10/03/2022 9:01 AM EDT [facility], [facility] eGFR (CKD-EPIcr 2020) 79 >=60 mL/min/1.7 3 m2 10/03/2022 9:01 AM EDT [facility] Comment:Estimated GFR was ca lculated using the CKD-EPIcr (2020) equation refit without race. The equation is recommended by the National Kidney Foundation - [place] Society of Nephrology Task Force. Blood VENOUS BLOOD / Unknown Venipuncture / Unknown 10/03/2022 7:02 AM EDT 10/03/2022 8:06 AM EDT us Minh Chacko MD CHEMISTRY ORDERABLES Fi nal Result [facility] [address] [facility] , [place] [address] [facility] [address] [place] [address] * (ABNORMAL) CBC (10/03/2022 7:02 AM EDT) Pathologist [facility] WBC 6.8 3.7 - 10.3 x10(3)/mcL 10/03/2022 [...] inal Result [facility] [address] [facility] , [place] [address] documented in this encounter Visit Diagnoses Not on filedocumented in this encounter
--- OUTSIDE RECORDS SUMMARY | 2022-10-07 11:00 | XMS_ITS | Encounter Summary ---
Author Organization [place] [address] Care Team Providers Care Derrick Worker Well Service Name Role Phone Unavailable Primary Care Provider Unavailabl e Encounter Details Date Type Department Care Team (Late st Contact Info) Description 10/07/2022 11:00 AM EDT Hospital Encounter [facility] [address] [phone] Minh Chacko MD [address] [place] [address] Social History Tobacco Use Types Packs/Day Years [...] 10/07/2022 1:28 PM EDT [facility] BUN 38(H) 8 - 23 mg/dL 10/07/2022 1:28 PM EDT [facility] Creatinine 1.18 0.67 - 1.30 mg/dL 10/07/2022 1:28 PM EDT [facility] Albumin 3.8 3.2 - 4.6 gm/dL 10/07/2022 1:28 PM EDT [facility] Phosphorus 2.4(L) 2.5 - 4.5 mg/dL 10/07/2022 1:28 PM EDT [facility] eGFR (CKD-EPIcr 2020) 65 >=60 mL/min/1.7 3 m2 10/07/2022 1:28 PM EDT [facility] Comment:Estimated GFR was ca lculated using the CKD-EPIcr (2020) equation refit without race. The equation is recommended by the National Kidney Foundation - [place] Society of Nephrology Task Force. Blood VENOUS BLOOD / Unknown Venipuncture / Unknown 10/07/2022 11:45 AM EDT 10/07/2022 12:30 PM EDT Minh Chacko MD CHEMISTRY ORDERABLES Fi nal Result [facility] 1 [facility] [address] [place] [address] [facility] 1 [place] [address] documented in this encounter Visit Diagnoses Not on filedocumented in this encounter
--- OUTSIDE RECORDS SUMMARY | 2022-10-07 11:00 | XMS_ITS | Encounter Summary ---
Author Organization [place] [address] Care Team Providers Care Filter Press Pumper Name Role Phone Unavailable Primary Care Provider Unavailabl e Encounter Details Date Type Department Care Team (Late st Contact Info) Description 10/07/2022 11:00 AM EDT Hospital Encounter [facility] 1 [address] [phone] Minh Chacko MD [address] [place] [address] Social History Tobacco Use Types Packs/Day Years [...] 10/07/2022 12:47 PM EDT [facility] MCHC 33.1 30.7 - 35.5 g/dL 10/07/2022 12:47 PM EDT [facility] RDW 15.2(H) <=14.9 % 10/07/2022 12:47 PM EDT [facility] Platelet 297 155 - 369 x10(3)/mcL 10/07/2022 12:47 PM EDT [facility] MPV 10.3 8.8 - 12.5 fL 10/07/2022 12:47 PM EDT [facility] Neut Percent 70.7 % 10/07/2022 12:47 PM EDT [facility] Comment:Neutrophils equals s egs plus bands Imm Gran% 0.7 % 10/07/2022 12:47 PM EDT [facility] Comment:Automated count of m etamyelocytes, myelocytes and promyelocytes. Lymph Percent 11.1 % 10/07/2022 12:47 PM EDT [facility] Man[place] Percent 12.4 % 10/07/2022 12:47 PM EDT [facility] Eos Percent 4.4 % 10/07/2022 12:47 PM EDT [facility] Baso Percent 0.7 % 10/07/2022 12:47 PM EDT [facility] Neut # 4.2 1.6 - 6.1 x10(3)/mcL 10/07/2022 12:47 PM EDT [facility] Comment:Neutrophils equals s egs plus bands IMMGRAN# 0.0 0.0 - 0.1 x10(3)/mcL 10/07/2022 12:47 PM EDT [facility] Comment:Automated count of m etamyelocytes, myelocytes and promyelocytes. An absolute IG <0.1 is reported as 0.0. Lymph # 0.7(L) 1.2 - 3.9 x10(3)/mcL 10/07/2022 12:47 PM EDT [facility] [place] # 0.7 0.3 - 0.9 x10(3)/mcL 10/07/2022 12:47 PM EDT [facility] Eos# 0.3 0.0 - 0.5 x10(3)/mcL 10/07/2022 12:47 PM EDT [facility] Baso # 0.0 0.0 - 0.1 x10(3)/mcL 10/07/2022 12:47 PM EDT [facility] Blood VENOUS BLOOD / Unknown Venipuncture / Unknown 10/07/2022 11:45 AM EDT 10/07/2022 12:30 PM EDT us Minh Chacko MD HEMATOLOGY ORDERABLES F inal Result [facility] 1 [facility] , [place] [address] documented in this encounter Visit Diagnoses Not on filedocumented in this encounter
--- OUTSIDE RECORDS SUMMARY | 2022-10-13 05:00 | XMS_ITS | Encounter Summary ---
Author Organization [place] [address] Care Team Providers Care Parachute Repairer Name Role Phone Unavailable Primary Care Provider Unavailabl e Encounter Details Date Type Department Care Team (Late st Contact Info) Description 10/13/2022 5:00 AM EDT Hospital Encounter [facility] Referral Lab [address] [phone] Minh Chacko MD [address] [place] [address] Social History Tobacco Use Types Packs/Day Years [...] 10/13/2022 8:42 AM EDT [facility] MCHC 32.1 30.7 - 35.5 g/dL 10/13/2022 8:42 AM EDT [facility] RDW 15.1(H) <=14.9 % 10/13/2022 8:42 AM EDT [facility] Platelet 278 155 - 369 x10(3)/mcL 10/13/2022 8:42 AM EDT [facility] MPV 10.1 8.8 - 12.5 fL 10/13/2022 8:42 AM EDT [facility] Neut Percent 62.8 % 10/13/2022 8:42 AM EDT [facility] Comment:Neutrophils equals s egs plus bands Imm Gran% 0.5 % 10/13/2022 8:42 AM EDT [facility] Comment:Automated count of m etamyelocytes, myelocytes and promyelocytes. Lymph Percent 21.1 % 10/13/2022 8:42 AM EDT [facility] [place] Percent 10.3 % 10/13/2022 8:42 AM EDT [facility] Eos Percent 4.5 % 10/13/2022 8:42 AM EDT [facility] Baso Percent 0.8 % 10/13/2022 8:42 AM EDT [facility] Neut # 4.2 1.6 - 6.1 x10(3)/mcL 10/13/2022 8:42 AM EDT [facility] Comment:Neutrophils equals s egs plus bands IMMGRAN# 0.0 0.0 - 0.1 x10(3)/mcL 10/13/2022 8:42 AM EDT [facility] Comment:Automated count of m etamyelocytes, myelocytes and promyelocytes. An absolute IG <0.1 is reported as 0.0. Lymph # 1.4 1.2 - 3.9 x10(3)/mcL 10/13/2022 8:42 AM EDT [facility] [place] # 0.7 0.3 - 0.9 x10(3)/[facility] 10/13/2022 8:42 AM EDT [facility] Eos# 0.3 0.0 - 0.5 x10(3)/mcL 10/13/2022 8:42 AM EDT [facility] Baso # 0.1 0.0 - 0.1 x10(3)/mcL 10/13/2022 8:42 AM EDT [facility] Blood VENOUS BLOOD / Unknown Venipuncture / Unknown 10/13/2022 7:31 AM EDT 10/13/2022 8:02 AM EDT Minh Chacko MD HEMATOLOGY ORDERABLES F inal Result [facility] [address] [facility] , [place] [address] * (ABNORMAL) URIC ACID (10/13/2022 7:31 AM EDT) Uric Acid 10.8(H) 3.4 - 7.0 mg/dL 10/13/2022 9:33 AM EDT [facility] Blood VENOUS BLOOD / Unknown Venipuncture / Unknown 10/13/2022 7:31 AM EDT 10/13/2022 8:02 AM EDT us Minh Chacko MD CHEMISTRY ORDERABLES Fi nal Result Performing Organization Address City/[facility]/ZIP Co de Phone Number [facility] [address] [facility] , [place] [address] documented in this encounter Visit Diagnoses Not on filedocumented in this encounter Orders Lab Orders Without Results Count Last Ordered D ate First Ordered Date HEPATIC FUNCTION PANEL 1 10/13/2022 RENAL FUNCTION PANEL 1 10/13/2022 documented in this encounter
--- OUTSIDE RECORDS SUMMARY | 2022-10-17 05:00 | XMS_ITS | Encounter Summary ---
Author Organization [place] [address] Care Team Providers Care Property Claims Adjuster Name Role Phone Unavailable Primary Care Provider Unavailabl e Encounter Details Date Type Department Care Team (Late st Contact Info) Description 10/17/2022 5:00 AM EDT Hospital Encounter [facility] Referral Lab [address] [phone] Minh Chacko MD [address] [place] [address] Social History Tobacco Use Types Packs/Day Years [...] 10/17/2022 8:46 AM EDT [facility] MCHC 32.2 30.7 - 35.5 g/dL 10/17/2022 8:46 AM EDT [facility] RDW 14.8 <=14.9 % 10/17/2022 8:46 AM EDT [facility] Platelet 346 155 - 369 x10(3)/mcL 10/17/2022 8:46 AM EDT [facility] MPV 10.4 8.8 - 12.5 fL 10/17/2022 8:46 AM EDT [facility] Neut Percent 60.9 % 10/17/2022 8:46 AM EDT [facility] Comment:Neutrophils equals s egs plus bands Imm Gran% 1.3 % 10/17/2022 8:46 AM EDT [facility] Comment:Automated count of m etamyelocytes, myelocytes and promyelocytes. IG >1% represents a left shift and provides an early indication of an infection or inflammatory process. Lymph Percent 22.2 % 10/17/2022 8:46 AM EDT [facility] [place] Percent 11.7 % 10/17/2022 8:46 AM EDT [facility] Eos Percent 3.3 % 10/17/2022 8:46 AM EDT [facility] Baso Percent 0.6 % 10/17/2022 8:46 AM EDT [facility] Neut # 4.3 1.6 - 6.1 x10(3)/mcL 10/17/2022 8:46 AM EDT [facility] Comment:Neutrophils equals s egs plus bands IMMGRAN# 0.1 0.0 - 0.1 x10(3)/mcL 10/17/2022 8:46 AM EDT [facility] Comment:Automated count of m etamyelocytes, myelocytes and promyelocytes. An absolute IG <0.1 is reported as 0.0. Lymph # 1.6 1.2 - 3.9 x10(3)/mcL 10/17/2022 8:46 AM EDT [facility] [place] # 0.8 0.3 - 0.9 x10(3)/mcL 10/17/2022 [...] inal Result [facility] [address] [facility] , [place] [address] documented in this encounter Visit Diagnoses Not on filedocumented in this encounter Orders Lab Orders Without Results Count Last Ordered D ate First Ordered Date HEPATIC FUNCTION PANEL 1 10/17/2022 RENAL FUNCTION PANEL 1 10/17/2022 documented in this encounter
--- OUTSIDE RECORDS SUMMARY | 2023-03-28 03:05 | XMS_ITS | Encounter Summary ---
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 Role Phone Unavailable Primary Care Provider Unavailabl e Encounter Details Date Type Department Care Team (Late st Contact Info) Description 03/28/2023 2:05 AM EST Hospital Encounter SE Referral Lab [address] [place] [phone] Minh Chacko MD [address] [place] [address] Social History Tobacco Use Types Packs/Day Years Used Date Smoking Tobacco: Never Assessed Sex and Gender Information Value Date Recorded Sex Assigned at Not on file Legal Sex Male 10:28 AM EDT Gender Identity Not on file Sexual Orientation Not on file documented as of this encounter Plan of Treatment Not on file documented as of this encounter Results * (ABNORMAL) CBC (03/28/2023 6:55 AM EST) WBC 11.0(H) 3.7 - 10.3 x10(3)/mcL 03/28/2023 9:17 AM EST [facility] RBC 3.09(L) 4.60 - 6.10 x10(6)/mcL 03/28/2023 9:17 AM EST [facility] Hgb 9.1(L) 13.7 - 17.5 g/dL 03/28/2023 9:17 AM EST [facility] Hct 29.6(L) 40.0 - 51.0 % 03/28/2023 9:17 AM EST [facility] MCV 95.8 80.0 - 100.0 fL 03/28/2023 9:17 AM EST [facility] MCH 29.4 26.0 - 34.0 pg 03/28/2023 9:17 AM EST [facility] MCHC 30.7 30.7 - 35.5 g/dL 03/28/2023 9:17 AM EST [facility] RDW 18.7(H) <=14.9 % 03/28/2023 9:17 AM EST [facility] Platelet 483(H) 155 - 369 x10(3)/mcL 03/28/2023 9:17 AM EST [facility] MPV 10.7 8.8 - 12.5 fL 03/28/2023 9:17 AM EST [facility] Blood VENOUS BLOOD / Unknown Venipuncture / Unknown 03/28/2023 6:55 AM EST 03/28/2023 8:38 AM EST us Minh Chacko MD HEMATOLOGY ORDERABLES F inal Result [facility] [address] [facility] , [address] [place] [phone] documented in this encounter Visit Diagnoses Not on filedocumented in this encounter
--- OUTSIDE RECORDS SUMMARY | 2024-04-16 08:12 | XMS_ITS | Continuity of Care Document ---
Author Name [facility] Organization [facility] Care Team Providers Care Business Center Representative Name Role Phone [facility] Unavailable Unavailable Problems Combined list of problems from Department of [facility] and [facility] facilities. It does not include entries that were removed or entered in error. Problem Status Onset Date Problem Type Date of Resolution Comments Source Autoimmune hepatitis [facility] Benign essential hypertension Active Condition [facility] Constipation Active Condition [facility] Exposure to potentially hazardous substance [facility] Gastroesophageal reflux disease without esophagitis Active Condition [facility] History of cerebrovascular accident with residual deficit [facility] Hypothyroidism [facility] Vitamin B12 deficiency (non anemic) Active Condition [facility] Diagnosis: ICD-10-CM Z71.89 Other specified counseling Active Diagnosis [facility] Diagnosis: ICD-10-CM N39.0 Urinary tract infection, site not specified Active Diagnosis [facility] Diagnosis: ICD-10-CM R26.2 Difficulty in walking, not elsewhere classified Active Diagnosis [facility] Diagnosis: ICD-10-CM Z46.1 Encounter for fitting and adjustment of hearing aid Active Diagnosis [facility] Diagnosis: ICD-10-CM C22.8 Malignant neoplasm of liver, primary, unspecified as to type Active Diagnosis [facility] Diagnosis: ICD-10-CM Z86.73 Prsnl hx of TIA (TIA), and cereb infrc w/o resid deficits Active Diagnosis [facility] Diagnosis: ICD-10-CM H90.5 Unspecified sensorineural hearing loss Active Diagnosis [facility] Diagnosis: ICD-10-CM C22.0 Liver cell carcinoma Active Diagnosis [facility] Medications Combined list of outpatient medications from Department [facility] and [facility] facilities.Medications provided include 1) outpatient medications from the last 15 months, and 2) patient-reported medications. Medication Details Route Status Patient Instructions Prescription Expires Prescription Number Last Dispense Date Ordering Provider Order Date Order Qty Source ASPIRIN 81MG TAB,EC TAKE ONE TABLET BY MOUTH DAILY ORAL ACTIVE MILAD LAIRD 2023 [place] [facility] CALCIUM 500MG/VITAM IN D 200UNT TAB TAKE ONE TABLET BY MOUTH ORAL ACTIVE MILAD LAIRD 2023 [place] [facility] CARVEDILOL 6.25MG TAB TAKE ONE-HALF TABLET BY MOUTH TWICE A DAY ORAL ACTIVE MILAD LAIRD 2023 [place] [facility] CYCLOSPORIN E (GENGRAF) 25MG CAP,UD TAKE 1 CAPSULE BY MOUTH ORAL ACTIVE MILAD LAIRD 2023 [place] [facility] LEVOTHYROXI NE NA 112MCG TAB (SYNTHROID) TAKE ONE TABLET BY MOUTH DAILY ORAL ACTIVE MILAD LAIRD 2023 [place] [facility] MYCOPHENOLA TE MOFETIL 250MG CAP TAKE 1 CAPSULE BY MOUTH TWICE A DAY ORAL ACTIVE MILAD LAIRD 2023 [place] [facility] NITROGLYCER IN 0.4MG TAB,SUBLING UAL,BTL,25 DISSOLVE ONE TABLET UNDER THE TONGUE EVERY 5 MINUTES UP TO 3 DOSES FOR CHEST PAIN -IF NO RELIEF CALL 911 SUBLIN GUAL ACTIVE 04/17/2025 [id number] MILAD LAIRD 2024 1 [place] [facility] OXYBUTYNIN CL 5MG TAB,SA TAKE ONE TABLET BY MOUTH DAILY FOR BLADDER ORAL ACTIVE 02/22/2025 [id number] MILAD LAIRD 2023 90 [place] [facility] PANTOPRAZOL E NA 40MG TAB,EC TAKE ONE TABLET BY MOUTH ONCE A DAY 30 MINUTES BEFORE A MEAL ORAL ACTIVE MILAD LAIRD 2023 [place] [facility] POSACONAZOL E 100MG TAB,EC TAKE THREE TABLETS BY MOUTH DAILY ORAL ACTIVE MILAD LAIRD L 2023 [place] [facility] PRASUGREL HCL 10MG TAB TAKE ONE TABLET BY MOUTH DAILY ORAL ACTIVE SISI,MILAD VANDANA L 2023 [place] [facility] PRASUGREL HCL 10MG TAB TAKE ONE TABLET BY MOUTH DAILY ORAL ACTIVE SISI,MILAD VANDANA L 2023 [place] [facility] PREDNISONE 5MG TAB TAKE ONE TABLET BY MOUTH ORAL ACTIVE SISI,MILAD VANDANA L 2023 [place] [facility] ROSUVASTATI N CA 5MG TAB TAKE ONE TABLET BY MOUTH AT BEDTIME ORAL ACTIVE SISI,MILAD VANDANA L 2023 [place] [facility] SODIUM ZIRCONIUM CYCLOSILICA TE 5GM/PKT PWDR,RENST- ORAL TAKE 1 PACKET BY MOUTH DAILY ORAL ACTIVE SISI,MILAD VANDANA L 2023 [place] [facility] VALSARTAN 40MG TAB TAKE ONE TABLET BY MOUTH TWICE A DAY ORAL ACTIVE SISI,MILAD VANDANA L 2023 [place] [facility] Immunizations Combined list of available immunizations from the Department of Defense and Veterans Affairs facilities. Immunization Series Date Given Administered By Site Reaction Lot Number CVX Code Drug Rides Supervisor Status Comments Source INFLUENZA, HIGH-DOSE, TRIVALENT, PF 2023 LOKESH BORDEN LEFT DELTO ID [id number] 135 complet ed Completed Series, ADMINISTE RED AT [place], [place] [facility] INFLUENZA, HIGH-DOSE, QUADRIVALENT 2 2022 197 complet ed HISTORICA L INFORMATI ON - FROM OTHER REGISTRY, [place] [facility] INFLUENZA, HIGH-DOSE, QUADRIVALENT 1 2021 197 complet ed HISTORICA L INFORMATI ON - FROM OTHER REGISTRY, [place] [facility] PNEUMOCOCCAL CONJUGATE PCV20, POLYSACCHARID E [id number] CONJUGATE, ADJUVANT, PF 2021 216 complet ed [place] [facility] ZOSTER RECOMBINANT 2 2020 NONE 187 complet ed [place] [facility] COVID-19 (MODERNA), MRNA, LNP-S, PF, 100 MCG/0.5ML DOSE OR 50 MCG/0.25ML DOSE 3 2020 207 complet ed HISTORICA L INFORMATI ON - FROM OTHER REGISTRY, [place] [facility] ZOSTER RECOMBINANT 1 2020 187 complet ed [place] [facility] COVID-19 (MODERNA), MRNA, LNP-S, PF, 100 MCG/0.5 ML DOSE 2 2020 207 complet ed [place] [facility] COVID-19 (MODERNA), MRNA, LNP-S, PF, 100 MCG/0.5 ML DOSE 1 2020 207 complet ed [place] [facility] INFLUENZA, UNSPECIFIED FORMULATION 2019 88 complet ed [place] [facility] INFLUENZA, SEASONAL, INJECTABLE 2018 141 complet ed Employer [place] [facility] PNEUMOCOCCAL POLYSACCHARID E [id number] 2017 33 complet ed [place] [facility] TDAP 2016 115 complet ed Employer [place] [facility] Vital Signs Combined list of inpatient and outpatient Vital Signs from Department of Defense and Veterans Affairs, ranging from 12 months to all on record, depending upon the facility. Vital Sign Value Date Comments Source SYSTOLIC BLOOD PRESSURE 156 02/02/2024 10:25:01 [facility] DIASTOLIC BLOOD PRESSURE 85 02/02/2024 10:25:01 [facility] PULSE OXIMETRY 97 02/02/2024 10:25:01 [facility] WEIGHT 124 02/02/2024 10:25:01 [place] [facility] BMI 18 kg/m2 02/02/2024 10:25:01 [place] [facility] PAIN 0 02/02/2024 10:25:01 [place] [facility] HEIGHT 69 02/02/2024 10:25:01 [place] [facility] TEMPERATURE 98.6 02/02/2024 10:25:01 [facility] PULSE 62 02/02/2024 10:25:01 [place] [facility] RESPIRATION 12 02/02/2024 10:25:01 [facility] Encounters Combined list of: 1) Encounters from Department of Veterans Affairs facilities going backup to the last 18 months, not all [place] inpatient encounters are included; 2) Encounters from the Department of Defense facilities going backup to 280 months. Location Location Details Encounter Type Encounter Number Reason For Visit Attending Provider ADM Date DC Date Status Disposition Source [facility] Outpatient Encounter [id number] 06/02 [place] OFFICE O/P EST MOD 30 MIN [id number] Diagnos is: ICD-10- CM C22.0 Liver cell carcino YISEL Russell TTANY L 06/[address] [place] [facility] HEARING AID EXAM BOTH EARS [id number] Diagnos is: ICD-10- CM H90.5 Unspeci fied sensori neural hearing loss ISA BLANCO 06/08 [place] [facility] Outpatient Encounter [id number] 06/29 [place] [facility] PRO PHONE CALL 5-10 MIN [id number] Diagnos is: ICD-10- CM Z71.89 Other specifi ed certified drug counselor ZAY Bermeo 07/[address] [place] [facility] HEARING AID FITTING/CH ECKING [id number] Diagnos is: ICD-10- CM Z46.1 Encount er for fitting and adjustm ent of hearing aid ISA BLANCO 07/[address] [place] [facility] WHEELCHAIR MNGMENT TRAINING [id number] Diagnos is: ICD-10- CM Z86.73 Prsnl hx of TIA (TIA), and cereb infrc w/o resid deficit s HUSSAIN MINOR W 07/[address] [place] [facility] Outpatient Encounter [id number] YISEL LAIRD L 07/[address] [place] [facility] Outpatient Encounter [id number] Diagnos is: ICD-10- CM C22.8 Maligna nt neoplas m of liver, primary , unspeci fied as to type HUSSAIN MINOR W 08/[address] [place] [facility] HEARING SERVICE [id number] Diagnos is: ICD-10- CM Z46.1 Encount er for fitting and adjustm ent of hearing aid ISA BLANCO 08/30 [place] [facility] Outpatient Encounter [id number] 09/12 [place] [facility] PRO PHONE CALL 5-10 MIN [id number] Diagnos is: ICD-10- CM R26.2 Difficu lty in walking , not elsewhe re classif ied LESLIE ESPARZA S 10/[address] [place] [facility] OFFICE O/P EST LOW 20 MIN [id number] Diagnos is: ICD-10- CM N39.0 Urinary tract infecti on, site not specifi ed YISEL LAIRD L 02/01 [place] [facility] Outpatient Encounter [id number] 02/18 [place] [facility] PRO PHONE CALL 5-10 MIN [id number] Diagnos is: ICD-10- CM Z71.89 Other specifi ed certified drug counselor ZAY Bermeo 02/[address] [place] [facility] Outpatient Encounter [id number] 02/28 [place] [facility] Outpatient Encounter [id number] 04[facility] [place] [facility] Social History Combined list of available smoking, tobacco, and other social history from Department of Defense and Veterans Affairs facilities. Social History Type Response Date Comment [facility] e Tobacco smoking status NHIS [place]-TOBACCO NEVER USED 06/03/2023 [facility] History of tobacco use IA-TOBACCO NEVER USED 11/15/2021 [facility] History of tobacco use IA-TOBACCO FORMER USER 05/26/2020 [facility] History of tobacco use IA-TOBACCO NEVER USED 04/02/2019 [facility]
--- OUTSIDE RECORDS SUMMARY | 2024-08-01 12:23 | XMS_ITS | Encounter Summary ---
Author Organization [facility] Address [address] [place] [address] Care Team Providers Care Senior User Experience Architect Name Role Phone Samaria Price MD Unavailable Jasmin Marshall CNP Unavailable [phone] Megan Tamez RN Unavailable Unavailable Junie Aggarwal RN Unavailable Unava ilable Ese Johnson PharmD Unavailable Zaria vailable Carlos Dominguez DO Primary Care Provider [phone] Source Comments This information has been disclosed [...] release of HIV test results or diagnoses. [id number] Reason for Referral * Imaging/Cardiovascular Scan (Routine) - Closed Specialty Diagnoses / Procedures Referred By Arlet arana Referred To Contact Radiology Diagnoses Atrial mass Procedures MRI Cardiac W WO contrast Beth Crowe, JOR[address] [place] [address] Phone: tel: fax: Referral ID Status Reason Start Date Expiration Date Visits Re quested Visits Authorized [id number] Closed 07/05/2024 01/01/2025 1 1 Reason for Visit * Auth/Cert (Routine) Specialty Diagnoses / Procedures Referred By Arlet arana Referred To Contact Radiology [facility] MRI [address] [place] [address] Phone: tel: Referral ID Status Reason Start Date Expiration Date Visits Re quested Visits Authorized [id number] 1 1 Encounter Details Date Type Department Care Team (Latest Contact Info) Description 08/01/2024 12:23 PM EDT - 08/01/2024 11:59 PM EDT Hospital Encounter [facility] MRI [address] [place] [phone] Genet Cha MD [address] [place] [phone] Atrial mass Discharge Disposition: Home or Self Care WITHOUT Home Care Services Social History Tobacco Use Types Packs/Day Years Used Date Smoking Tobacco: Never Smokeless Tobacco: Never Alcohol Use Standard Drinks/Week Comments Never 0 (1 standard drink = 0.6 oz pur e alcohol) Utilities Answer Date Recorded In the past 12 months has [employer], gas, oil, or water [employer] threatened to shut off services in your [...] place to sleep or slept in a fdc (including now)? No 04/11/2023 Yearly Questionnaire Answer [...] Assistance needed for: Not on file 4 Sex and Gender Information Value Date Recorded Sex Assigned at Male 06/06/2021 6:51 PM EDT Legal Sex Male 3:36 PM EST Gender Identity Male 06/06/2021 6:51 PM EDT Sexual Orientation Not on file documented as of this encounter Medications at Time of Discharge acetaminophen (TYLENOL) 325 MG tabletIndications:P ain Take 2 tablets (650 mg total) by mouth every 6 hours as needed. Indications: Pain 200 tablet 1 4 aspirin 81 MG EC tabletIndications:m yocardial infarction prevention,preventi on of transient ischemic attack Take 1 tablet (81 mg total) by mouth daily. 90 tablet 3 4 calcium-vitamin D 500 mg-5 mcg (200 unit) per tabletIndications:o steoporosis Take 1 tablet by mouth 2 times a day with meals. Indications: osteoporosis 60 tablet 5 04/22/2023 6:04 PM EST 4 carvediloL (COREG) 3.125 MG tabletIndications:L eft Ventricular Dysfunction following CO Take 1 tablet (3.125 mg total) by mouth 2 times a day. 180 tablet 3 4 cycloSPORINE modified (NEORAL/GENGRAF) 25 MG capsuleIndications: S/P liver transplant ([facility]),Immunosup pressive management encounter following liver transplant ([facility]) Take 1 capsule (25 mg total) by mouth 2 times a day. 60 capsule 5 09/17/2024 4:34 PM EDT 5 furosemide (LASIX) 20 MG tabletIndications:A cute on chronic HFrEF (heart failure with reduced ejection fraction) ([facility]) Take 1 tablet (20 mg total) by mouth daily as needed. As needed when you gain 5 lbs or notice swelling 180 tablet 2 4 levothyroxine (SYNTHROID) 88 MCG tabletIndications:h ypothyroidism Take 1.5 tablets (132 mcg total) by mouth daily. Indications: hypothyroidism 5 mycophenolate (CELLCEPT) 250 mg capsuleIndications: Prevention of Liver Transplant Rejection Take 1 capsule (250 mg total) by mouth 2 times a day. 60 capsule 5 09/17/2024 4:34 PM EDT 5 ondansetron (ZOFRAN-ODT) 4 MG disintegrating tabletIndications:C ancer Chemotherapy-Induce d Nausea and Vomiting Dissolve 1 tablet (4 mg total) by mouth every 8 hours as needed for Nausea. 90 tablet 4 pantoprazole (PROTONIX) 40 MG tabletIndications:h eartburn Take 1 tablet (40 mg total) by mouth every morning before breakfast. Indications: heartburn 30 tablet 5 4 polyethylene glycol (GLYCOLAX) 17 gram/dose powder Dissolve 1 capful (17 g total) in 8 oz of liquid and drink by mouth 2 times a day. 238 [address] (NOXAFIL) 100 mg TbEC Take 3 tablets (300 mg total) by mouth daily with breakfast. 90 tablet 5 5 11/11/19 25 prednisoLONE acetate (PRED FORTE) 1 % ophthalmic suspension Place 1 drop into the right eye 4 times a day. 5 mL 1 5 predniSONE (DELTASONE) 5 MG tabletIndications:P revention of Liver Transplant Rejection Take 1 tablet (5 mg total) by mouth daily. 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 90 tablet 1 4 sodium zirconium cyclosilicate (LOKELMA) 5 gram PwPkIndications:Hyp erkalemia Empty entire contents of one packet (5 g) into a glass of water with at least 45 mL of water and drink once daily. Stir well and drink immediately. SEPARATE FROM OTHER MEDICATIONS BY 2 HOURS BEFORE AND AFTER. 30 packet 5 4 brimonidine (ALPHAGAN) 0.2 % ophthalmic solution INSTILL 1 DROP INTO RIGHT EYE THREE TIMES DAILY 10 mL 5 08/21/19 25 sacubitriL-valsarta n (ENTRESTO) 24-26 mg Tab Take 1 tablet by mouth 2 times a day. Check blood pressure before each dose. Hold one dose for systolic blood pressure less than 120. 180 tablet 1 5 08/15/19 25 timolol (TIMOPTIC) 0.5 % ophthalmic solution INSTILL 1 DROP INTO RIGHT EYE TWICE DAILY 10 mL 10 5 08/31/19 25 documented as of this encounter Plan of Treatment Upcoming Encounters Date Type Department Care Team (Late st Contact Info) Description 10/10/2024 12:31 PM EDT Hospital Encounter [facility] ENDOSCOPY [address] [place] [phone] Enrike Mims MD [address] [place] [address] 10/10/2024 12:31 PM EDT - 10/10/2024 2:01 PM EDT Surgery [facility] ENDOSCOPY [address] [place] [phone] Enrike Mims MD [address] [place] [address] ERCP Scheduled Procedures Name Priority Associated Diagnoses Date/Ti me 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 EDT documented as of this encounter Procedures Procedure Name Priority Date/Time Associated Diagnosis Comments MRI CARDIAC W AND WO CONTRAST Routine 08/01/2024 2:55 PM EDT Atrial mass POC EGFR Routine 08/01/2024 1:34 PM EDT POC SAMPLE TYPE Routine 08/01/2024 1:34 PM EDT POCT HEMATOCRIT Routine 08/01/2024 1:34 PM EDT POCT CREATININE Routine 08/01/2024 1:34 PM EDT POCT HEMOGLOBIN Routine 08/01/2024 1:34 PM EDT documented in this encounter Results * MRI Cardiac W WO contrast (08/01/2024 2:55 PM EDT) Anatomical Region Laterality Modality Chest, Vascular Magnetic Resonan ce 08/01/2024 1:37 PM EDT Impressions 08/08/2024 7:58 AM EDT IMPRESSION: 1. No atrial mass. 2. Mildly dilated left ventricular chamber size with a mildly reduced global LV systolic function. Calculated ejection fraction of 48%. Mild patchy areas of subendocardial and mid myocardial LGE within the basal anterior and lateral segments in addition to the apical septum. No associated resting first pass perfusion defects. These findings are nonspecific and may be related to both ischemic and nonischemic etiologies. 3. Normal right ventricular size with a normal global RV systolic function. Calculated RV ejection fraction of 67%. 4. No significant valvular abnormalities. 5. Left apical nodule, better evaluated on prior chest CT. Thank you for referring to [facility] Cardiac Magnetic Resonance Imaging. Report Verified by: Goyo Campos MD at 08/08/2024 7:58 AM EDT Narrative 08/08/2024 7:58 AM EDT Exam: MRI CARDIAC W AND WO CONTRAST Comparison: CT chest dated 05/09/2023 Contrast: 15 mL of GADOBUTROL 1 MMOL/ML INTRAVENOUS SYRINGE ([facility]) administered intravenously Indication: atrial mass; Atrial mass Patient information: Height: 175.3 cm Weight: 60.3 kg BSA: 1.7 m2 Scanner details and techniques performed: Cardiac localization Steady-state free precession cine imaging in multiple imaging planes Gadolinium contrast enhanced first-pass myocardial perfusion imaging at rest Contrast-enhanced late gadolinium enhancement imaging in multiple imaging planes T2-weighted triple-inversion recovery fast-spin echo imaging in multiple imaging planes T1-weighted double-inversion recovery with and without fat saturation in addition to post contrast with fat saturation in the axial plane T2-weighted FSE with fat saturation Scanner Giana: 1.5T Scanner Vendor: [employer] Exam Quality: excellent Findings: QUALITATIVE IMPRESSIONS: Left ventricle: LV size: Mildly dilated LV global fn: Mildly reduced Rest regional wall motion: Mild diffuse hypokinesis. Rest perfusion: Normal LV Late enhancement: Mild patchy areas of subendocardial and mid myocardial LGE within the basal anterior and lateral segments in addition to the apical septum Myocardial edema: No Additional LV findings: None Right ventricle: RV size: Normal RV global fn: Normal RV regional fn: Normal RV Late enhancement: Normal Additional RV findings: None Atria: LA Size: Normal RA Size: Normal Additional atrial findings: No atrial mass. Pericardium And Pleura: Pericardium thickness: Normal Pericardial effusion: No Pericardial enhancement: No Pericardial adhesions: Not assessed Any Signs of Pericardial Constriction: No Pleural Effusion: No Heart Valves: Aortic Stenosis: No Aortic Regurgitation: No Pulm Stenosis: No Pulm Regurgitation: No Mitral Stenosis: No Mitral Regurgitation: No Tricuspid Stenosis: No Tricuspid Regurgitation: No QUANTITATIVE MEASUREMENTS: Left ventricle: LVEDV (mL): 167 mL LVESV (mL): 87 mL Stroke Volume (mL): 80 mL LVEF (%): 48 % (Normal= 50-75%) LVEDV Index (mL/m2): 97 mL/m2 (Normal= 44-92) LVESV Index (mL/m2): 51 mL/m2 Stroke Volume Index: 47 ml/m2 (Normal= 30-65) LVED Mass Index (g/m2) 94 g/m2 (Normal= <81) Heart Rate (bpm): 63 bpm Cardiac Output (L/min): 5.1 L/min Cardiac Index (L/min/m2): 3.0 L/min/m2 (Normal= 2.6-4.2) End diastolic LV dimension (mm): 51 mm (Normal= 37-53) End systolic LV dimension (mm): 44 mm Anteroseptal LV wall thickness (mm): 10 mm (Normal = 7-12) Posterolateral LV wall thickness (mm): 8 mm (Normal= 7-12) Right Ventricle: RVEDV (mL): 103 mL RVESV (mL): 34 mL RV Stroke Volume (mL): 69 mL RVEF (%): 67% (Normal= 47-60) RVEDV Index (mL/m2): 60 mL/m2 (Normal= 58-114) RVESV Index (mL/m2): 20 mL/m2 Atria and Great Vessels: Left atrial dimension (mm): 31 mm(Normal= 19-40) Aortic root diameter (mm): 36 mm (Normal= 20-40) Ascending aorta diameter (mm): 34 mm (Normal= 20-40) Main pulmonary artery (mm): 20 mm (Normal= 15-30) Non-cardiac findings: Left apical nodule, better evaluated on prior chest CTs. Otherwise, no significant noncardiac findings on this cardiac focused exam. Procedure Note Goyo Campos MD - 08/08/2024 Exam: MRI CARDIAC W AND WO CONTRAST Comparison: CT chest dated 05/09/2023 Contrast: 15 mL of GADOBUTROL 1 MMOL/ML INTRAVENOUS SYRINGE ([facility])administered intravenously Indication: atrial mass; Atrial mass Patient information: Height: 175.3 cm Weight: 60.3 kg BSA: 1.7 m2 Scanner details and techniques performed: Cardiac localization Steady-state free precession cine imaging in multiple imaging planes Gadolinium contrast enhanced first-pass myocardial perfusion imaging atrest Contrast-enhanced late gadolinium enhancement imaging in multipleimaging planes T2-weighted triple-inversion recovery fast-spin echo imaging inmultiple imaging planes T1-weighted double-inversion recovery with and without fat saturationin addition to post contrast with fat saturation in the axial plane T2-weighted FSE with fat saturation Scanner Giana: 1.5T Scanner Vendor: [employer] Exam Quality: excellent Findings: QUALITATIVE IMPRESSIONS: Left ventricle: LV size: Mildly dilated LV global fn: Mildly reduced Rest regional wall motion: Mild diffuse hypokinesis. Rest perfusion: Normal LV Late enhancement: Mild patchy areas of subendocardial and midmyocardial LGE within the basal anterior and lateral segments in additionto the apical septum Myocardial edema: No Additional LV findings: None Right ventricle: RV size: Normal RV global fn: Normal RV regional fn: Normal RV Late enhancement: Normal Additional RV findings: None Atria: LA Size: Normal RA Size: Normal Additional atrial findings: No atrial mass. Pericardium And Pleura: Pericardium thickness: Normal Pericardial effusion: No Pericardial enhancement: No Pericardial adhesions: Not assessed Any Signs of Pericardial Constriction: No Pleural Effusion: No Heart Valves: Aortic Stenosis: No Aortic Regurgitation: No Pulm Stenosis: No Pulm Regurgitation: No Mitral Stenosis: No Mitral Regurgitation: No Tricuspid Stenosis: No Tricuspid Regurgitation: No QUANTITATIVE MEASUREMENTS: Left ventricle: LVEDV (mL): 167 mL LVESV (mL): 87 mL Stroke Volume (mL): 80 mL LVEF (%): 48 % (Normal= 50-75%) LVEDV Index (mL/m2): 97 mL/m2 (Normal= 44-92) LVESV Index (mL/m2): 51 mL/m2 Stroke Volume Index: 47 ml/m2 (Normal= 30-65) LVED Mass Index (g/m2) 94 g/m2 (Normal= <81) Heart Rate (bpm): 63 bpm Cardiac Output (L/min): 5.1 L/min Cardiac Index (L/min/m2): 3.0 L/min/m2 (Normal= 2.6-4.2) End diastolic LV dimension (mm): 51 mm (Normal= 37-53) End systolic LV dimension (mm): 44 mm Anteroseptal LV wall thickness (mm): 10 mm (Normal = 7-12) Posterolateral LV wall thickness (mm): 8 mm (Normal= 7-12) Right Ventricle: RVEDV (mL): 103 mL RVESV (mL): 34 mL RV Stroke Volume (mL): 69 mL RVEF (%): 67% (Normal= 47-60) RVEDV Index (mL/m2): 60 mL/m2 (Normal= 58-114) RVESV Index (mL/m2): 20 mL/m2 Atria and Great Vessels: Left atrial dimension (mm): 31 mm(Normal= 19-40) Aortic root diameter (mm): 36 mm (Normal= 20-40) Ascending aorta diameter (mm): 34 mm (Normal= 20-40) Main pulmonary artery (mm): 20 mm (Normal= 15-30) Non-cardiac findings: Left apical nodule, better evaluated on prior chestCTs. Otherwise, no significant noncardiac findings on this cardiac focusedexam. IMPRESSION: 1. No atrial mass. 2. Mildly dilated left ventricular chamber size with a mildly reducedglobal LV systolic function. Calculated ejection fraction of 48%. Mildpatchy areas of subendocardial and mid myocardial LGE within the basalanterior and lateral segments in addition to the apical septum. Noassociated resting first pass perfusion defects. These findings arenonspecific and may be related to both ischemic and nonischemicetiologies. 3. Normal right ventricular size with a normal global RV systolicfunction. Calculated RV ejection fraction of 67%. 4. No significant valvular abnormalities. 5. Left apical nodule, better evaluated on prior chest CT. Thank you for referring to [facility] Cardiac Magnetic Resonance Imaging. Report Verified by: Goyo Campos MD at 08/08/2024 7:58 AM EDT Genet Cha MD IMG MRI ORDERABLES Final Res ult * POC Sample Type (08/01/2024 1:34 PM EDT) POC Sample Type Unspecified 08/01/2024 1:41 PM EDT [facility] Blood, Arterial 08/01/2024 1 :34 PM EDT 08/01/2024 1:41 PM EDT Genet Cha MD POINT OF CARE TEST ORDERABLE S Final Result [facility] [address] * POC eGFR (08/01/2024 1:34 PM EDT) [facility] POC [id number] 08/01/2024 1:41 PM EDT [facility] Comment:As of 2021, the estimated GFR is calculated using the 2020 Chronic Kidney Disease Epidemiology Collaboration (CKD-EPI) equation. In line with the NKF-ASN Task Force Recommendations, this equation does not include a coefficient for race. A single eGFR value is calculated for each patient. The reference interval is >60 mL/min/1.73m2. eGFR values greater than 90 will be reported as >90mL/min/1.73m2. Reference: Amos C, Desiree M, Jarrod DC, Eliu ND, Suzy CA, Chance LA, et al. A Unifying Approach for GFR Estimation: Recommendations of the NKF-ASN Task Force on Reassessing the inclusion of Race in Diagnosing Kidney Disease. Am J Kidney Dis. 2020. Blood, Arterial 08/01/2024 1 :34 PM EDT 08/01/2024 1:41 PM EDT us Genet Cha MD LAB BLOOD ORDERABLES Final R esult [facility] [address] [facility] * POC creatinine (08/01/2024 1:34 PM EDT) [facility] POC Creatinine 1.06 0.60 - 1.30 mg/dL 08/01/2024 1:41 PM EDT [facility] Blood, Arterial 08/01/2024 1 :34 PM EDT 08/01/2024 1:41 PM EDT Genet Cha MD POINT OF CARE TEST ORDERABLE S Final Result [facility] [address] [facility] * (ABNORMAL) POC Hemoglobin (08/01/2024 1:34 PM EDT) POC Hemoglobin 12.7(L) 14.0 - 18.0 g/dL 08/01/2024 1:41 PM EDT [facility] Blood, Arterial 08/01/2024 1 :34 PM EDT 08/01/2024 1:41 PM EDT Genet Cha MD POINT OF CARE TEST ORDERABLE S Final Result [facility] [address] [facility] * (ABNORMAL) POC hematocrit (08/01/2024 1:34 PM EDT) POC Hematocrit 37.0(L) 40 - 52 % 08/01/2024 1:41 PM EDT [facility] Blood, Arterial 08/01/2024 1 :34 PM EDT 08/01/2024 1:41 PM EDT Genet Cha MD POINT OF CARE TEST ORDERABLE S Final Result [facility] [address] [facility] documented in this encounter Visit Diagnoses Diagnosis Atrial mass Swelling, mass, or lump in chest Biliary stricture Obstruction of bile duct documented in this encounter Administered Medications Inactive Administered Medications - up to 3 most recent administrations Medication Order MAR Action Action Date Dose Rate Site gadobutrol (GADAVIST) 1 mmol/1 mL IV syringe 15 mL 15 mL, Intravenous, IMG once as needed, contrast, Starting on Jhoana 08/01/24 at 1606, For 1 dose Given 08/01/2024 3:37 PM EDT 15 mLs documented in this encounter Care Teams Senior User Experience Architect Relationship Specialty Start Date End Date Carlos Dominguez DO [id number] [place] [id number] [place] [id number] PCP - General Internal Medicine 04/05/24 Samaria Price MD [facility] Hematology/[place] [phone] Medical Oncologist [facility] Medical Oncology 10/20/21 Jasmin Marshall, ROLL ICER MACHINE [facility] Hematology/[place] [phone] Nurse Practitioner [facility] Hematology and Oncology 10/20/21 Megan Tamez, RN Nurse Clinician Medical Oncology 10/20/21 Junie Aggarwal, RN Txp Post Coordinator [employer] 10/14/22 Ese Johnson, PharmD Pharmacist Pharmacist 10/17/22 documented as of this encounter
--- OUTSIDE RECORDS SUMMARY | 2024-08-20 10:14 | XMS_ITS | Encounter Summary ---
Author Organization [facility] Address [address] [place] [address] Care Team Providers Care Chemical Waste Management Technician Name Role Phone Samaria Price MD Unavailable Jasmin Marshall CNP Unavailable [phone] Megan Tamez RN Unavailable Unavailable Junie Aggarwal RN Unavailable Unava ilable Ese Johnson PharmD Unavailable Zaria vailable Carlos Dominguez DO Primary Care Provider [phone] Source Comments This information has been disclosed [...] release of HIV test results or diagnoses. [id number] Health Encounter Details Date Type Department Care Team (Latest Contact Info) Description 08/20/2024 10:14 AM EDT - 08/20/2024 11:59 PM EDT Hospital Encounter [facility] Radiology [address] [place] [phone] Kolton Martinez MD [address] [place] [address] Liver replaced by transplant ([facility]); Immunosuppressive management encounter following liver transplant ([facility]); Encounter for therapeutic drug monitoring; Osteoporosis, unspecified osteoporosis type, unspecified pathological fracture presence; History of steroid therapy Discharge Disposition: Home or Self Care WITHOUT Home Care Services Social History Tobacco Use Types Packs/Day Years Used Date Smoking Tobacco: Never Smokeless Tobacco: Never Alcohol Use Standard Drinks/Week Comments Never 0 (1 standard drink = 0.6 oz pur e alcohol) Utilities Answer Date Recorded In the past 12 months has th e [employer], gas, oil, or water [employer] threatened to shut off services in your [...] place to sleep or slept in a penitentiary (including now)? No 04/11/2023 Yearly Questionnaire Answer [...] 3.125 MG tabletIndications:L eft Ventricular Dysfunction following ME Take 1 tablet (3.125 mg total) by mouth 2 times a day. 180 tablet 3 4 cycloSPORINE modified (NEORAL/GENGRAF) 25 MG capsuleIndications: S/P liver transplant (CMS-HCC),Immunosup pressive management encounter following liver transplant (CMS-HCC) Take 1 capsule (25 mg total) by mouth 2 times a day. 60 capsule 5 09/17/2024 4:34 PM EDT 5 furosemide (LASIX) 20 MG tabletIndications:A cute on chronic HFrEF (heart failure with reduced ejection fraction) ([facility]) Take 1 tablet (20 mg total) by [...] 5 MG tabletIndications:C oronary artery disease involving [place] coronary artery of [place] heart without angina pectoris,Chest pain, unspecified type,Acute on chronic HFrEF (heart failure with reduced ejection fraction) ([facility]) Take 1 tablet (5 mg total) by [...] EYE THREE TIMES DAILY 10 mL 5 08/31/19 25 sacubitriL-valsarta n (ENTRESTO) 24-26 mg Tab Take 1 tablet by mouth every morning AND 2 tablets every evening. Check blood pressure before each dose. Hold one dose for systolic blood pressure less than 120. 270 tablet 1 5 08/28/19 25 timolol (TIMOPTIC) 0.5 % ophthalmic solution INSTILL 1 DROP INTO RIGHT EYE TWICE DAILY 10 mL 10 5 08/31/19 25 documented as of this encounter Plan of Treatment Upcoming Encounters Date Type Department Care Team (Late st Contact Info) Description 10/10/2024 12:31 PM EDT Hospital Encounter [facility] ENDOSCOPY [address] [place] [phone] Enrike Mims MD [address] [place] [phone] 10/10/2024 12:31 PM EDT - 10/10/2024 2:01 PM EDT Surgery [facility] ENDOSCOPY [address] [place] [phone] Enrike Mims MD [address] [place] [address] ERCP Scheduled Procedures Name Priority Associated Diagnoses Date/Ti me 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 EDT documented as of this encounter Procedures Procedure Name Priority Date/Time Associated Diagnosis Comments DXA BONE DENSITY AXIAL SKELETON Routine 08/20/2024 1:03 PM EDT Liver replaced by transplant ([facility]) Immunosuppressive management encounter following liver transplant ([facility]) Encounter for therapeutic drug monitoring Osteoporosis, unspecified osteoporosis type, unspecified pathological fracture presence History of steroid therapy documented in this encounter Results * DXA bone density axial skeleton (08/20/2024 1:03 PM EDT) Anatomical Region Laterality Modality L-spine Nuclear Medicine 08/20/2024 1:03 PM EDT Impressions 08/21/2024 3:19 PM EDT IMPRESSION: Osteoporosis. Since the study dated 2023, bone mineral density has significantly decreased in the left forearm and right total hip. FRAX not reported because one or more T scores are at or below -2.5. Recommendations for followup testing Intervals between BMD testing should be determined according to the clinical status of each patient; typically one year after initiation or change of therapy is appropriate, with longer intervals once therapeutic effect is established. In conditions associated with rapid bone loss, such as glucocorticoid therapy, testing more frequently is appropriate. Report Verified by: Leeanne Villar MD at 08/21/2024 3:19 PM EDT Narrative 08/21/2024 3:19 PM EDT EXAM: DXA BONE DENSITY AXIAL SKELETON INDICATION: Liver replaced by transplant ([facility]); Immunosuppressive management encounter following liver transplant ([facility]); Immunosuppressive management encounter following liver transplant ([facility]); Encounter for therapeutic drug monitoring; Osteoporosis, unspecified osteoporosis type, unspecified pathological fracture presence; History of steroid therapy TECHNICAL: Bone mineral density analysis was performed on a [employer]XA scanner. ARTIFACTS: There is lumbar spondylosis which may spuriously elevate the measured bone mineral density. Left femoral hardware. COMPARISON: 2023 FINDINGS: Spine (L1-L4): BMD: 1.126 g/cm2 , previously 0.843 g/cm2, 33.6% change T-score: -0.8 SD Z-score: 0.5 SD Right femoral neck: BMD: 0.734 g/cm2 , previously 0.683 g/cm2, 7.5% change T-score: -2.6 SD Z-score: -0.7 SD Right total hip: BMD: 0.534 g/cm2 , previously 0.635 g/cm2, -15.9% change T-score: -3.9 SD Z-score: -2.6 SD Left forearm (Radius 33%): BMD: 0.770 g/cm2 , previously 0.831 g/cm2, -7.3% change T-score: -2.2 SD Z-score: -1.2 SD The following scores are defined as follows: (1) The T-score is a comparison using standard deviation of the patient versus normal healthy controls. (2) The Z-score is a comparison using standard deviation of the patient versus normal controls matched for sex, race and age. Age: 74 years Procedure Note Leeanne Villar MD - 08/21/2024 EXAM: DXA BONE DENSITY AXIAL SKELETON INDICATION: Liver replaced by transplant (CMS-HCC); Immunosuppressivemanagement encounter following liver transplant (CMS-HCC);Immunosuppressive management encounter following liver transplant(CMS-HCC); Encounter for therapeutic drug monitoring; Osteoporosis,unspecified osteoporosis type, unspecified pathological fracture presence;History of steroid therapy TECHNICAL: Bone mineral density analysis was performed on a [employer]DX[employer]anner. ARTIFACTS: There is lumbar spondylosis which may spuriously elevate themeasured bone mineral density. Left femoral hardware. COMPARISON: 2023 FINDINGS: Spine (L1-L4): BMD: 1.126 g/cm2 , previously 0.843 g/cm2, 33.6% change T-score: -0.8 SD Z-score: 0.5 SD Right femoral neck: BMD: 0.734 g/cm2 , previously 0.683 g/cm2, 7.5% change T-score: -2.6 SD Z-score: -0.7 SD Right total hip: BMD: 0.534 g/cm2 , previously 0.635 g/cm2, -15.9% change T-score: -3.9 SD Z-score: -2.6 SD Left forearm (Radius 33%): BMD: 0.770 g/cm2 , previously 0.831 g/cm2, -7.3% change T-score: -2.2 SD Z-score: -1.2 SD The following scores are defined as follows: (1) The T-score is a comparison using standard deviation of the patientversus normal healthy controls. (2) The Z-score is a comparison using standard deviation of the patientversus normal controls matched for sex, race and age. Age: 74 years IMPRESSION: Osteoporosis. Since the study dated 2023, bone mineral density hassignificantly decreased in the left forearm and right total hip. FRAX not reported because one or more T scores are at or below -2.5. Recommendations for followup testing Intervals between BMD testing should be determined according to theclinical status of each patient; typically one year after initiation orchange of therapy is appropriate, with longer intervals once therapeuticeffect is established. In conditions associated with rapid bone loss, such as glucocorticoidtherapy, testing more frequently is appropriate. Report Verified by: Leeanne Villar MD at 08/21/2024 3:19 PM EDT Kolton Martinez MD IMG DEXA ORDERABLES Final Result documented in this encounter Visit Diagnoses Diagnosis Liver replaced by transplant ([facility]) Liver replaced by transplant Immunosuppressive management encounter following liver transplant ([facility]) Encounter for therapeutic drug monitoring Osteoporosis, unspecified osteoporosis type, unspecified pathological fracture presence History of steroid therapy Personal history of systemic steroid therapy Biliary stricture Obstruction of bile duct documented in this encounter Care Teams Chemical Waste Management Technician Relationship Specialty Start Date End Date Carlos Dominguez DO [address], [place] [address] [place] [address] PCP - General Internal Medicine 04/05/24 Samaria Price MD [facility] Hematology/[place] [phone] Medical Oncologist [facility] Medical Oncology 10/20/21 Jasmin Marshall CNP [facility] Hematology/[place] [phone] Nurse Practitioner [facility] Hematology and Oncology 10/20/21 Megan Tamez, RN Nurse Clinician Medical Oncology 10/20/21 Junie Aggarwal, RN Txp Post Coordinator Lamination Technician 10/14/22 Ese Johnson, PharmD Pharmacist Pharmacist 10/17/22 documented as of this encounter
--- OUTSIDE RECORDS SUMMARY | 2024-08-20 13:00 | XMS_ITS | Encounter Summary ---
Author Organization [facility] Address [address] [place] [address] Care Team Providers Care Communications Maintainer Name Role Phone Samaria Price MD Unavailable Jasmin Marshall CNP Unavailable [phone] Megan Tamez RN Unavailable Unavailable Junie Aggarwal RN Unavailable Unava ilable Ese Johnson PharmD Unavailable Zaria vailable Carlos Dominguez DO Primary Care Provider [phone] Source Comments This information has been disclosed [...] release of HIV test results or diagnoses. [id number] Reason for Visit * Reason Comments Labs Only Encounter Details Date Type Department Care Team (Late Contact Info) Description 08/20/2024 1:00 PM EDT Specimen [facility] Out[facility] [address] [place] [phone] Kolton Martinez MD [address] [place] [address] S/P liver transplant ([facility]-HCC); Immunosuppression ([facility]-HCC); Iron deficiency; Chronic systolic heart failure ([facility]) Social History Tobacco Use Types Packs/Day Years Used Date Smoking Tobacco: Never Smokeless Tobacco: Never Alcohol Use Standard Drinks/Week Comments Never 0 (1 standard drink = 0.6 oz pur e alcohol) Utilities Answer Date Recorded In the past 12 months has th e [employer], [employer] MD, oil, or water [employer] threatened to shut off services in your [...] place to sleep or slept in a long-term (including now)? No 04/11/2023 Yearly Questionnaire Answer [...] Description 10/10/2024 12:31 PM EDT Hospital Encounter [facility] ENDOSCOPY [address] [place] [address] Enrike Mims MD [address] [place] [phone] 10/10/2024 12:31 PM EDT - 10/10/2024 2:01 PM EDT Surgery [facility] ENDOSCOPY [address] [place] [address] Enrike Mims MD [address] [place] [phone] ERCP Scheduled Procedures Name Priority Associated Diagnoses Date/Ti me 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 EDT documented as of this encounter Procedures Procedure Name Priority Date/Time Associated Diagnosis Comments IRON STUDIES Routine 08/20/2024 10:26 AM EDT Iron deficiency CYCLOSPORINE LEVEL Routine 08/20/2024 10 :26 AM EDT S/P liver transplant (CMS-HCC) Immunosuppression ([facility]-HCC) FERRITIN Routine 08/20/2024 10:26 AM EDT Iron deficiency TRANSFERRIN RECEPTOR, SOLUBLE Routine 08/20/2024 9:59 AM EDT Iron deficiency HEPATIC FUNCTION PANEL Routine 08/20/2024 9:59 AM EDT S/P liver transplant (CMS-HCC) RENAL FUNCTION PANEL W/EGFR Routine 08/20/2024 9:59 AM EDT S/P liver transplant (CMS-HCC) DIFFERENTIAL Routine 08/20/2024 9:59 AM EDT S/P liver transplant (CMS-HCC) CBC Routine 08/20/2024 9:59 AM EDT S/P liver transplant (CMS-HCC) B NATRIURETIC PEPTIDE Routine 08/20/2024 9:59 AM EDT Chronic systolic heart failure (CMS-HCC) documented in this encounter Results * Iron Studies (Iron + TIBC) (08/20/2024 10:26 AM EDT) Iron 59 50 - 212 ug/dL 08/20/2024 11:03 AM EDT [facility] % Iron Saturation 17.3 15.0 - 55.0 % 08/20/2024 11:03 AM EDT [facility] TIBC 342 261 - 462 ug/dL 08/20/2024 11:03 AM EDT [facility] Serum 08/20/2024 10:2 6 AM EDT 08/20/2024 10:26 AM EDT us Beth Crowe [facility] LAB BLOOD ORDERABLES Final Res ult [facility] [address] [place] [address], [facility] * Ferritin (08/20/2024 10:26 AM EDT) Ferritin 150.2 23.9 - 336.2 ng/mL 08/20/2024 11:17 AM EDT [facility] Serum 08/20/2024 10:2 6 AM EDT 08/20/2024 10:26 AM EDT Beth Crowe DNP LAB BLOOD ORDERABLES Final Res ult Performing Organization Address City/[facility]/ZIP Co de Phone Number [facility] [address] [facility]. [address] * Cyclosporine level (08/20/2024 10:26 AM EDT) Cyclosporine, LC/MS 146.2 100.0 - 350.0 ng/mL 08/20/2024 1:46 PM EDT [facility] Comment:Performed via liquid chromatography tandem mass spectrometry. Detection limit: 20 ng/mL. Individual target concentrations may vary due to target organ and time after transplant. This test has been developed and its performance characteristics determined by Counts include 234 beds at the [facility] which is certified under the Clinical Laboratory Improvement Amendment of 1988 (CLIA-88) to perform high complexity testing. The test has not been cleared or approved by the US Food and Drug Administration (FDA). The FDA has determined that such clearance is not necessary. The test should be used for clinical purposes and is not regarded as investigational. Whole Blood 08/20/2024 10:2 6 AM EDT 08/20/2024 10:26 AM EDT Narrative [facility] - 08/20/2024 1:46 PM EDT Standing liver transplant labs. Please fax results to [phone]. Call critical results to [phone]. Kolton Martinez MD LAB BLOOD ORDERABLES Kalli l Result Performing Organization Address City/[facility]/ZIP Co de Phone Number [facility] [address] Castro [facility]. [address] * (ABNORMAL) B Natriuretic Peptide (08/20/2024 9:59 AM EDT) BNP 1,064(H) 0 - 100 pg/mL 08/20/2024 12:11 PM EDT [facility] Comment: BNP may be increased in the presence of sacubitril/valsartan (Entresto). Please interpret accordingly. Plasma 08/20/2024 9:59 AM EDT 08/20/2024 11:39 AM EDT [facility] - 08/20/2024 12:11 PM EDT The presence of high concentrations of biotin may cause falsely lowered BNP results. Biotin interference may be seen if an individual is taking >5 mg biotin per day. Interpret BNP results in the context of the patient's clinical presentation. Beth Crowe [facility] LAB BLOOD ORDERABLES Final Res ult Performing Organization Address [facility]/ZIP Co de Phone Number [facility] [address] [facility]. [address] * Transferrin Receptor, Soluble (08/20/2024 9:59 AM EDT) Transferrin Receptor 14.9 12.2 - 27.3 nmol/L 08/22/2024 6:20 AM EDT [facility] Serum 08/20/2024 9:59 AM EDT 08/22/2024 7:06 AM EDT [facility] LAB - 08/22/2024 7:06 AM EDT PERFORMED AT: [address] [id number] QUAD STAYER: Coral Aguilera MD PHONE: [phone] [facility] LAB BLOOD ORDERABLES Final Res ult Performing Organization Address City/[facility]/ZIP Co de Phone Number [facility] [address] [facility]. [address] * (ABNORMAL) Hepatic Function Panel (08/20/2024 9:59 AM EDT) Total Bilirubin 0.8 0.0 - 1.5 mg/dL 08/20/2024 10:27 AM EDT [facility] Bilirubin, Direct 0.4 0.0 - 0.4 mg/dL 08/20/2024 10:27 AM EDT [facility] AST 10(L) 13 - 39 U/L 08/20/2024 10:27 AM EDT [facility] ALT 9 7 - 52 U/L 08/20/2024 10:27 AM EDT [facility] Alkaline Phosphatase 96 36 - 125 U/L 08/20/2024 10:27 AM EDT [facility] Total Protein 6.2(L) 6.4 - 8.9 g/dL 08/20/2024 10:27 AM EDT [facility] Albumin 3.8 3.5 - 5.7 g/dL 08/20/2024 10:27 AM EDT [facility] Bilirubin, Indirect 0.4 0.0 - 1.1 mg/dL 08/20/2024 10:27 AM EDT [facility] Plasma 08/20/2024 9:59 AM EDT 08/20/2024 10:08 AM EDT Narrative [facility] - 08/20/2024 10:27 AM EDT Standing liver transplant labs. Please fax results to [phone]. Call critical results to [phone]. Kolotn Martinez MD LAB BLOOD ORDERABLES Kalli grider Result [facility] [address] [place] [address], [facility] * (ABNORMAL) Renal Function Panel w/EGFR (08/20/2024 9:59 AM EDT) Sodium 137 133 - 146 mmol/L 08/20/2024 10:27 AM EDT [facility] Potassium 3.7 3.5 - 5.3 mmol/L 08/20/2024 10:27 AM EDT [facility] Chloride 103 98 - 110 mmol/L 08/20/2024 10:27 AM EDT [facility] CO2 26 21 - 33 mmol/L 08/20/2024 10:27 AM EDT [facility] Anion Gap 8 3 - 16 mmol/L 08/20/2024 10:27 AM EDT [facility] BUN 30(H) 7 - 25 mg/dL 08/20/2024 10:27 AM EDT [facility] Creatinine 1.40(H) 0.60 - 1.30 mg/dL 08/20/2024 10:27 AM EDT [facility] Glucose 108(H) 70 - 100 mg/dL 08/20/2024 10:27 AM EDT [facility] Calcium 9.3 8.6 - 10.3 mg/dL 08/20/2024 10:27 AM EDT [facility] Phosphorus 3.1 2.1 - 4.5 mg/dL 08/20/2024 10:27 AM EDT [facility] Albumin 3.8 3.5 - 5.7 g/dL 08/20/2024 10:27 AM EDT [facility] Osmolality, Calculated 291 278 - 305 mOsm/kg 08/20/2024 10:27 AM EDT [facility] EGFR 52 08/20/2024 10:27 AM EDT [facility] Comment:As of 2021, the estimated GFR [...] Kidney Disease. Am J Kidney Dis. 2020. Plasma 08/20/2024 9:59 AM EDT 08/20/2024 10:08 AM EDT Narrative [facility] - 08/20/2024 10:27 AM EDT Standing liver transplant labs. Please fax results to [phone]. Call critical results to [phone]. Kolton Martinez MD LAB BLOOD ORDERABLES Kalli grider Result [facility] [address] * (ABNORMAL) CBC (08/20/2024 9:59 AM EDT) WBC 9.1 3.8 - 10.8 10E3/uL 08/20/2024 10:11 AM EDT [facility] RBC 3.89(L) 4.20 - 5.80 10E6/uL 08/20/2024 10:11 AM EDT [facility] Hemoglobin 12.3(L) 13.2 - 17.1 g/dL 08/20/2024 10:11 AM EDT [facility] Hematocrit 36.1(L) 38.5 - 50.0 % 08/20/2024 10:11 AM EDT [facility] MCV 92.9 80.0 - 100.0 fL 08/20/2024 10:11 AM EDT [facility] MCH 31.8 27.0 - 33.0 pg 08/20/2024 10:11 AM EDT [facility] MCHC 34.2 32.0 - 36.0 g/dL 08/20/2024 10:11 AM EDT [facility] RDW 14.9 11.0 - 15.0 % 08/20/2024 10:11 AM EDT [facility] Platelets 384 140 - 400 10E3/uL 08/20/2024 10:11 AM EDT [facility] MPV 8.2 7.5 - 11.5 fL 08/20/2024 10:11 AM EDT [facility] Whole Blood 08/20/2024 9:59 AM EDT 08/20/2024 10:08 AM EDT Narrative [facility] - 08/20/2024 10:11 AM EDT Standing liver transplant labs. Please fax results to [phone]. Call critical results to [phone]. us Kolton Martinez MD LAB BLOOD ORDERABLES Kalli l Result [facility] [address] [place] [address], [facility] * Differential (08/20/2024 9:59 AM EDT) Neutrophils Relative 69.5 40.0 - 80.0 % 08/20/2024 10:11 AM EDT [facility] Lymphocytes Relative 21.4 15.0 - 45.0 % 08/20/2024 10:11 AM EDT [facility] Monocytes Relative 7.4 0.0 - 12.0 % 08/20/2024 10:11 AM EDT [facility] Eosinophils Relative 1.1 0.0 - 8.0 % 08/20/2024 10:11 AM EDT [facility] Basophils Relative 0.6 0.0 - 1.0 % 08/20/2024 10:11 AM EDT [facility] nRBC 0 0 - 0 /100 WBC 08/20/2024 10:11 AM EDT [facility] Neutrophils Absolute 6,325 1,520 - 8,640 /uL 08/20/2024 10:11 AM EDT [facility] Lymphocytes Absolute 1,947 570 - 4,860 /uL 08/20/2024 10:11 AM EDT [facility] Monocytes Absolute 673 0 - 1,296 /uL 08/20/2024 10:11 AM EDT [facility] Eosinophils Absolute 100 0 - 864 /uL 08/20/2024 10:11 AM EDT [facility] Basophils Absolute 55 0 - 108 /uL 08/20/2024 10:11 AM EDT [facility] Whole Blood 08/20/2024 9:59 AM EDT 08/20/2024 10:08 AM EDT Narrative [facility] - 08/20/2024 10:11 AM EDT Standing liver transplant labs. Please fax results to [phone]. Call critical results to [phone]. Kolton Martinez MD LAB BLOOD ORDERABLES Kalli grider Result [facility] [address] documented in this encounter Visit Diagnoses Diagnosis S/P liver transplant (CMS-HCC) Immunosuppression ([facility]-HCC) Iron deficiency Disorders of iron metabolism Chronic systolic heart failure (CMS-HCC) Chronic systolic heart failure Biliary stricture Obstruction of bile duct documented in this encounter Care Teams Communications Maintainer Relationship Specialty Start Date End Date AlbertoCarlos nieves DO [address] [address] [place] [address] PCP - General Internal Medicine 04/05/24 Samaria Price MD [facility] Hematology/[place] [phone] Medical Oncologist [facility] Medical Oncology 10/20/21 Jasmin Marshall CERTIFIED MEDICAL ASSISTANT [facility] Hematology/[place] [phone] Nurse Practitioner [facility] Hematology and Oncology 10/20/21 Megan Tamez, MARCOS Nurse Clinician Medical Oncology 10/20/21 Junie Aggarwal, MARCOS [employer]xp Post Coordinator Employee Service Officer 10/14/22 Ese Johnson, NahunD Pharmacist Pharmacist 10/17/22 documented as of this encounter
--- OUTSIDE RECORDS SUMMARY | 2024-08-30 13:00 | XMS_ITS | Encounter Summary ---
Author Organization [facility] Address [address] [place] [address] Care Team Providers Care Fitness And Wellness Instructor Name Role Phone Samaria Price MD Unavailable Jasmin Marshall CNP Unavailable [phone] Megan Tamez RN Unavailable Unavailable Junie Aggarwal RN Unavailable Unava ilable Ese Johnson PharmD Unavailable Zaria vailable Carlos Dominguez DO Primary Care Provider [phone] Source Comments This information has been disclosed [...] release of HIV test results or diagnoses. 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, brain and eye Autoimmune hepatitis ([facility]) Benign prostatic hyperplasia Blindness of right eye Cancer ([facility]) 2020 Liver transplant CHF (congestive heart failure) ([facility]) Coronary artery disease 2014 Diverticulosis 2020 End stage liver disease ([facility]) s/p OLT GERD (gastroesophageal reflux disease) 1969 Caused by prednisone for my liver HCC (hepatocellular carcinoma) ([facility]) Hearing loss 1984 connected some loss Heart failure ([facility]) 03/2023 Treated with meds High blood pressure 03/2020 Treated with medication High cholesterol Hypertension Hypothyroidism Myocardial infarction ([facility]) 03/2023 Osteoporosis 2022 Taking meds Stroke ([facility]) Past Ocular History: 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 BAL + pseudomonas and aspergillus. Blood [...] Description 10/10/2024 12:31 PM EDT Hospital Encounter [facility] ENDOSCOPY [address] [place] [phone] Enrike Mims MD [address] [place] [phone] 10/10/2024 12:31 PM EDT - 10/10/2024 2:01 PM EDT Surgery [facility] ENDOSCOPY [address] [place] [phone] Enrike Mims MD [address] [place] [phone] ERCP Scheduled Procedures Name Priority Associated [...] ORDERABLE S Final Result Performing Organization Address [facility] de Phone Number RADNET * OCT Retina/Macula- Both Eyes (08/30/2024 12:10 PM EDT) 08/30/2024 Narrative RADNET - 08/30/2024 3:17 PM EDT Date of Test/Procedure Date: 08/30/2024. 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 Obstruction of bile duct documented in this encounter Care Teams Fitness And Wellness Instructor Relationship Specialty Start Date End Date Carlos Dominguez DO [address], [place] [address] [place] [phone] PCP - General Internal Medicine 04/05/24 Samaria Price MD [facility]8 [facility] Hematology/[place] [phone] Medical Oncologist [facility] Medical Oncology 10/20/21 Jasmin Marshall, PRESETTER OPERATOR [address] [facility] Hematology/[place] [phone] Nurse Practitioner [facility] Hematology and Oncology 10/20/21 Megan Tamez, RN Nurse Clinician Medical Oncology 10/20/21 Junie Aggarwal, MARCOS Txp Post Coordinator It Support Consultant 10/14/22 Ese Johnson, NahunD Pharmacist Pharmacist 10/17/22 documented as of this encounter
--- OUTSIDE RECORDS SUMMARY | 2024-09-23 09:35 | XMS_ITS | Encounter Summary ---
Author Organization [facility] Address [address] [place] [address] Care Team Providers Care Shift Stacker Name Role Phone Samaria Price MD Unavailable Jasmin Marshall CNP Unavailable [phone] Megan Tamez RN Unavailable Unavailable Junie Aggarwal RN Unavailable Unava ilable Ese Johnson PharmD Unavailable Zaria vailable Carlos Dominguez DO Primary Care Provider [phone] Source Comments This information has been disclosed [...] release of HIV test results or diagnoses. AFV3614.24 Health Encounter Details Date Type Department Care Team (Late st Contact Info) Description 08/21/2024 Results Follow-Up [facility] Advanced Heart Failure at [place] [facility] [address] [facility] [address] [place] [phone] Beth Crowe DNP [address] [facility] [place] [phone] Ferritin, Iron Studies (Iron + TIBC), B [...] place to sleep or slept in a retirement (including now)? No 04/11/2023 Yearly Questionnaire Answer [...] Description 10/10/2024 12:31 PM EDT Hospital Encounter [facility] ENDOSCOPY [address] [place] [phone] Enrike Mims MD [address] [place] [phone] 10/10/2024 12:31 PM EDT - 10/10/2024 2:01 PM EDT Surgery 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 EDT documented as of this encounter Visit Diagnoses Not on filedocumented in this encounter Care Teams Shift Stacker Relationship Specialty Start Date End Date Carlos Dominguez DO [address] [place] [address] [place], [place] [phone] PCP - General Internal Medicine 04/05/24 Samaria Price MD [address] [place] [address] Hematology/[place] [phone] Medical Oncologist [facility] Medical Oncology 10/20/21 Jasmin Marshall, PARTS COUNTER SALESPERSON [address] [facility] Hematology/[place] [phone] Nurse Practitioner [facility] Hematology and Oncology 10/20/21 Megan Tamez, RN Nurse Clinician Medical Oncology 10/20/21 Junie Aggarwal, MARCOS Txp Post Coordinator [employer]asting [employer] 10/14/22 Ese Johnson, PharmD Pharmacist Pharmacist 10/17/22 documented as of this encounter
--- OUTSIDE RECORDS SUMMARY | 2024-09-23 09:35 | XMS_ITS | Encounter Summary ---
Author Organization [place] [address] Care Team Providers Care Drafter Assistant Name Role Phone Unavailable Primary Care Provider Unavailabl e Encounter Details Date Type Department Care Team (Latest Contact Info) Description 04/02/2023 External Contact [facility] Pulmonology [facility] [address] [address] Rodyd Alvarez MD [address] [address] Bilateral pleural effusion (Primary Dx); [...]
--- OUTSIDE RECORDS SUMMARY | 2024-09-23 09:35 | XMS_ITS | Data Portability ---
Author Organization [facility] - [facility]ON[facility] - [facility] ANKIT Lynn ADMIN Address [address] [place] [address] Care Team Providers Care Pin Setter Name Role Phone VERONICA TORRES Primary Care Provider Assessment Encounter Date Assessment Date Assessment LastModified by Organization Details LastModified Time 02/25/2022 02/25/2022 overall doing well. prior CVA but no issues with the heart other than this. He has eygq-dx-felrztof carotid artery stenosis with mild coronary disease. [...] recorded. Imaging electroca rdiogram 2021 022 [facility], [address] [place] [address] [address], [place], [address], 02/25/2022 10:03:29 Medication Orders None recorded. Patient TargetsNo targets recorded. Patient InstructionsNo instructions recorded. Reason for Referral None Reported. Results Created Date Observation Date Name Description Value Unit Range Abnormal Flag Note LastModifiedBy Organization Detail LastModifiedTime 02/26/20 elect rocar diogr am No observ ation record ed. [email or web address] [address], [place], [address], 02/25/2022 09:44:56 02/26/20 22 02/25/2022 elect rocar diogr am No observ ation record ed. [email or web address] Not Available 2021 09:46:02 Result Notes None recorded. Problems Name Problem SNOMED Code Status Onset Date Resolution Date Notes Provider Name and Address Organization Details Recorded Time Coronary atheroscl erosis 312057571 Active 2013 Not Available [facility] 2 23:33:03 Pain of shoulder region 19637316 Active 2013 Shoulder pain Not Available [facility] 2 23:33:03 Disorder of carotid artery 926175382 Active 2021 Carotid artery disease Not Available [facility] 2 23:33:03 Closed fracture of shaft of clavicle 52103649 Active 2018 Not Available [facility] 2 23:33:03 Electroca rdiogram abnormal 368904386 Active 2013 Not Available [facility] 2 23:33:03 Autoimmun e hepatitis 874779484 Active 2013 Not Available [facility] 2 23:33:03 Angina pectoris 674342397 Active 2013 Not Available [facility] 2 23:33:03 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 11154965690 9100 Active 2019 Not Available [facility] 2 23:33:03 Carotid artery stenosis 74330532 Active 2013 Not Available [facility] 2 23:33:03 Hypertens wiley disorder 26782768 Active 2013 Hyperten grace Not Available [facility] 2 23:33:03 Abnormal results of cardiovas cular function studies 226234355 Active 2013 Not Available [facility] 2 23:33:03 Hypothyro idism 28730769 Active 2013 Not Available [facility] 2 23:33:03 Coronary arteriosc lerosis 66100058 Active 2021 Coronary artery disease Not Available [facility] 2 23:33:03 Ischemic heart disease 526565678 Active 2021 Ischemic heart disease Not Available [facility] 2 23:33:03 Essential hypertens ion 84669683 Active 2021 Essential hypertens ion Not Available [facility] 2 23:33:04 Cerebral infarctio n 749200776 Active 2013 Not Available [facility] 2 23:33:04 Chest pain 65229353 Active 2013 Not Available [facility] 2 23:33:04 Adhesive capsuliti s of shoulder 123925099 Active 2013 Not Available [facility] 2 23:33:04 Cirrhosis of liver 27368221 Active 2021 Nile Cardona MD [facility] tr[address] [facility], [place], [address] , [facility] - NT [facility] & [place] 2 10:01:30 Cerebrova scular accident 611735425 Active 2021 Nile Cardona MD [facility] [address] [facility],[address], [place], [address] , [facility] - [facility] & [place] 2 10:01:49 Problem Notes None recorded. Procedures Surgical History Date Name Laterality Status Provider Name and Address Organization Details Recorded Time Cardiac [facility] 02/25/2022 09:43:19 leg repair completed [facility] & [place] 02/25/2022 09:43:33 biopsy of liver completed [facility] & [place] 02/25/2022 09:43:44 Imaging Results None recorded. Procedure [...] Available Not Available No t Available vitamin U00-orulv acid injection solution 1 injection monthly active Not Available Not Available No t Available calcium active Not Available Not Avail able Not Available Vitamin D3 active Not Available Not Av ailable Not Available Vitals Date Recorded Body height Body mass index (BMI) Body weight Oxygen saturation Oxygen saturation in Arterial blood by Pulse oximetry Heart rate Systolic And Diastolic Provider Name and Address Organization Details Last Updated DateTime 12/09/202 2 175.26 cm 25 kg/m2 91691.2 7 g 100 % 100 % 55 /min 130/90 mm[Hg] Alicia Hatch [place] - [place] [facility] & [place] 2 09:41:18 Social History None recorded. Functional Status None recorded. Mental Status None recorded. Family History Nothing Reported. Medical History Condition Response Thyroid Disease Y Stroke Y Hypertension Y Past Encounters Encounter ID Performer Location Encounter Start Date Encounter Closed Date Diagnosis/Indication Diagnosis SNOMED-CT Code Diagnosis ICD10 Code Diagnosis Note [id number] Nile Cardona MD [address] [place] [address] 02/25/2022 09:03:51 02/25/2022 09:43:42 Essential hypertension 39626489 I10 Coronary arteriosclerosis 52380494 I25.10 Carotid ar inessa stenosis 06305126 I65.29 Cirrhosis of liver 007 K74.60 Cerebrovas cular accident 841750437 I63.9 Health Concerns Section Related Observation LastModified by Organization Detai ls LastModified Time None Recorded Concern Status LastModified by Organization Details LastModified Time None Recorded Advance Directives Directive None Recorded Payers Insurance Date Sequence Insurance Name Policy Number Policy Nguyen Covered Member ID Nguyen Member ID Guarantor Name 08/27/2022 2 AARP (MEDICARE SUPPLEMENT) René Cornejo [id number] René Cornejo 08/27/2022 1 [place] René Cornejo [id number] René Cornejo 08/15/2019 2 AARP René Cornejo [id number] René Cornejo 08/29/2019 3 [place] Renéalejo Cornejo [id number] René Cornejo Notes Date Note Type [...] breath orthopnea or PND Nile Cardona MD [address] [place] [address],[address], [place], [address], [place] 02/25/2022 10:32:16
--- OUTSIDE RECORDS SUMMARY | 2024-09-23 09:35 | XMS_ITS | Encounter Summary ---
Author Organization [facility] Address [address] [place] [address] Care Team Providers Care Manual Tester Name Role Phone Samaria Price MD Unavailable Jasmin Marshall CNP Unavailable [phone] Megan Tamez RN Unavailable Unavailable Junie Aggarwal RN Unavailable Unava ilable Ese Johnson PharmD Unavailable Zaria vailable Carlos Dominguez DO Primary Care Provider [phone] Source Comments This information has been disclosed [...] release of HIV test results or diagnoses. [id number] Reason for Referral * Physician/EFREN (Routine) - No Authorization Required Specialty Diagnoses / Procedures Referred By Arlet arana Referred To Contact Endocrinology Diagnoses H/O fracture Osteoporosis with current pathological fracture, unspecified osteoporosis type, initial encounter [facility] Liver Transplant at [address] [address] Phone: tel: fax: Referral ID Status Reason Start Date Expiration Date Visits Requested Visits Authorized [id number] No Authorization Required 08/22/2024 02/18/2025 1 1 Scheduling Instructions For appointments, please call [phone]. Reason for Visit * Reason Comments Results Encounter Details Date Type Department Care Team (Late st Contact Info) Description 08/22/2024 Telephone [facility] Liver Transplant at [facility] [address] [facility] [address] [place] [address] Junie Aggarwal RN Results Social History Tobacco Use Types Packs/Day Years Used Date Smoking Tobacco: Never Smokeless Tobacco: Never Alcohol Use Standard Drinks/Week Comments Never 0 (1 standard drink = 0.6 oz pur e alcohol) Utilities Answer Date Recorded In the past 12 months has th e [employer], gas, oil, or water company threatened to [...] Please refer to Endocrinology Referral placed and MAZ message sent with phone number to call [...] 12:31 PM EDT [facility] [address] [place] [address] Enrike Mims MD [address] [place] [phone] 10/10/2024 12:31 PM EDT - 10/10/2024 2:01 PM EDT Surgery [facility] [address] [place] [address] Enrike Mims MD [address] [place] [phone] ERCP Scheduled Procedures Name Priority Associated Diagnoses [...] duct documented in this encounter Care Teams Manual Tester Relationship Specialty Start Date End Date Carlos Dominguez DO [address] [address] [place] [address] PCP - General Internal Medicine 04/05/24 Samaria Price MD [facility]8 [facility] Hematology/[place] [phone] [facility] Medical Oncology 10/20/21 Jasmin Marshall TIRE SERVICE TECHNICIAN [address] [facility] Hematology/[place] [phone] [facility] Hematology and Oncology 10/20/21 Megan Tamez, MARCOS Nurse Clinician Medical Oncology 10/20/21 Junie Aggarwal, MARCOS Txp Post Coordinator Flake Miller Helper 10/14/22 Ese Johnson, PharmD Pharmacist Pharmacist 10/17/22 documented as of this encounter
--- OUTSIDE RECORDS SUMMARY | 2024-09-23 09:35 | XMS_ITS | Encounter Summary ---
Author Organization [facility] Address [address] [place] [address] Care Team Providers Care Hollow Tile Partition Erector Name Role Phone Samaria Price MD Unavailable Jasmin Marshall CNP Unavailable [phone] Megan Tamez RN Unavailable Unavailable Junie Aggarwal RN Unavailable Unava ilable Ese Johnson PharmD Unavailable Zaria vailable Carlos Dominguez DO Primary Care Provider [phone] Source Comments This information has been disclosed [...] release of HIV test results or diagnoses. [id number] Health Encounter Details Date Type Department Care Team (Late st Contact Info) Description 08/27/2024 Orders Only [facility] Advanced Heart Failure at [place] [facility] [address] [facility] [address] [place] [phone] Beth Crowe, JORGE L [address] [place] [address] Social History Tobacco Use Types [...] Description 10/10/2024 12:31 PM EDT Hospital Encounter [facility] ENDOSCOPY [address] [place] [phone] Enrike Mims MD [address] [place] [phone] 10/10/2024 12:31 PM EDT - 10/10/2024 2:01 PM EDT Surgery [facility] ENDOSCOPY [address] [place] [phone] Enrike Mims MD [address] [place] [phone] ERCP Scheduled Procedures Name Priority Associated Diagnoses Date/Ti me 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 EDT documented as of this encounter Visit Diagnoses Not on filedocumented in this encounter Care Teams Hollow Tile Partition Erector Relationship Specialty Start Date End Date Carlos Dominguez DO [address] [place] [address] [place] [phone] PCP - General Internal Medicine 04/05/24 Samaria Price MD [address] [place] [address] Hematology/[place] [phone] Medical Oncologist [facility] Medical Oncology 10/20/21 Jasmin Marshall, PROCESS CONTROL ENGINEER [facility]8 [facility] Hematology/[place] [phone] Nurse Practitioner [facility] Hematology and Oncology 10/20/21 Megan Tamez, RN Nurse Clinician Medical Oncology 10/20/21 Junie Aggarwal, MARCOS Txp Post Coordinator Program Production Specialist 10/14/22 Ese Johnson, PharmD Pharmacist Pharmacist 10/17/22 documented as of this encounter
--- OUTSIDE RECORDS SUMMARY | 2024-09-23 09:35 | XMS_ITS | Encounter Summary ---
Author Organization [facility] Address [address] [place] [address] Care Team Providers Care Irrigation Installation Specialist Name Role Phone Samaria Price MD Unavailable Jasmin Marshall CNP Unavailable [phone] Megan Tamez RN Unavailable Unavailable Delores BETTS MD Leo Primary Care Provide r Jnuie Aggarwal RN Unavailable Unava ilable Ese Johnson PharmD Unavailable Zaria vailable Carlos Dominguez DO Primary Care Provider [phone] Source Comments This information has been disclosed [...] release of HIV test results or diagnoses. [id number] Health Encounter Details Date Type Department Care Team (Late st Contact Info) Description 12/26/2023 Orders Only [facility] Outreach Lab Test Referral Center [address] [place] [phone] Sujey Vallejo Acute on chronic HFrEF (heart failure with reduced ejection fraction) ([facility]) Social History Tobacco Use Types Packs/Day Years [...] Description 10/10/2024 12:31 PM EDT Hospital Encounter [facility] ENDOSCOPY [address] [place] [phone] Enrike Mims MD [address] [place] [phone] 10/10/2024 12:31 PM EDT - 10/10/2024 2:01 PM EDT Surgery [facility] ENDOSCOPY [address] [place] [phone] Enrike Mims MD [address] [place] [phone] ERCP Scheduled Procedures Name Priority Associated Diagnoses Date/Ti me 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 EDT documented as of this encounter Visit Diagnoses Diagnosis Acute on chronic HFrEF (heart failure with reduced ejection fraction) ([facility]) Biliary stricture Obstruction of bile duct documented in this encounter Care Teams Irrigation Installation Specialist Relationship Specialty Start Date End Date Leo Estrella III, MD [address] [place] [address] PCP - General Family Medicine 12/22/21 04/04/24 Carlos Dominguez DO [address] [place], [place] [address] [address] [place] [address] PCP - General Internal Medicine 04/05/24 Samaria Price MD [address] [place] [address] Hematology/[place] [phone] Medical Oncologist [facility] Medical Oncology 10/20/21 Jasmin Marshall DIRECTOR AGENCY & STRATEGIC PARTNERSHIPS [address] [place] [address] Hematology/[place] [phone] Nurse Practitioner [facility] Hematology and Oncology 10/20/21 Megan Tamez, RN Nurse Clinician Medical Oncology 10/20/21 Junie Aggarwal, MARCOS Txp Post Coordinator Associate Store Manager 10/14/22 Ese Johnson, NahunD Pharmacist Pharmacist 10/17/22 documented as of this encounter
--- OUTSIDE RECORDS SUMMARY | 2024-09-23 09:35 | XMS_ITS | Encounter Summary ---
Author Organization [facility] Address [address] [place] [address] Care Team Providers Care Slip Caster Name Role Phone Samaria Price MD Unavailable Jasmin Marshall CNP Unavailable [phone] Megan Tamez RN Unavailable Unavailable Junie Aggarwal RN Unavailable Unava ilable Ese Johnson PharmD Unavailable Zaria vailable Carlos Dominguez DO Primary Care Provider [phone] Source Comments This information has been disclosed [...] release of HIV test results or diagnoses. [id number] Reason for Visit * Reason Comments Appointment Encounter Details Date Type Department Care Team ([facility] Contact Info) Description 08/23/2024 Telephone [facility] Endocrinology at [facility] Office [address] [facility] [address] [place] [address] Vandana Holden MD [address] [facility] [place] [address] Appointment Social History Tobacco Use Types [...] place to sleep or slept in a usp (including now)? No 04/11/2023 Yearly Questionnaire Answer [...] of this scheduling before patient comes from [facility] Please advise documented in this encounter Plan of Treatment Upcoming Encounters Date Type Department Care Team (Late st Contact Info) Description 10/10/2024 12:31 PM EDT Hospital Encounter [facility] ENDOSCOPY [address] [place] [phone] Enrike Mims MD [address] [place] [phone] 10/10/2024 12:31 PM EDT - 10/10/2024 2:01 PM EDT Surgery [facility] ENDOSCOPY [address] [place] [phone] Enrike Mims MD [address] [place] [phone] ERCP Scheduled Procedures Name Priority Associated Diagnoses Date/Ti me 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 EDT documented as of this encounter Visit Diagnoses Not on filedocumented in this encounter Care Teams Slip Caster Relationship Specialty Start Date End Date Carlos Dominguez DO [address], [place] [address] [place] [address] PCP - General Internal Medicine 04/05/24 Samaria Price MD [address] [place] [address] Hematology/[place] [phone] Medical Oncologist [facility] Medical Oncology 10/20/21 Jasmin Marshall, WIC SITE COORDINATOR [address] [place] [address] Hematology/[place] [phone] Nurse Practitioner [facility] Hematology and Oncology 10/20/21 Megan Tamez, RN Nurse Clinician Medical Oncology 10/20/21 Junie Aggarwal, MARCOS Txp Post Coordinator Stockholder 10/14/22 Ese Johnson, NahunD Pharmacist Pharmacist 10/17/22 documented as of this encounter
--- OUTSIDE RECORDS SUMMARY | 2024-09-23 09:35 | XMS_ITS | Continuity of Care Document ---
Author Organization [facility] Address [address] [place] [address] Care Team Providers Care Reeling Machine Operator Name Role Phone O NICKI BAEZ Billiard Table Assembler MONIQUE LOPEZ Primary Care Provider Assessment No assessment recorded. Plan of Treatment Reminders Order Date Submit Date Provider Last Modified By Organization Details Last Modified Time Details Appointments FOLLOW UP [facility] 2025 10:40A M CARLOS VIEIRA MD Not available Not available Not available Lab None recorded . Referral None recorded . Procedures None recorded . Surgeries None recorded . Imaging None recorded . Medication Orders None recorded . Patient TargetsNo targets recorded. Patient InstructionsNo instructions recorded. Reason for Referral None Reported. 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 Procedures Surgical History Date Name Laterality Status Provider Name and Address Organization Details Recorded Time 09/10/19 25 Destruction Premalignant Lesion(s) completed Yolanda Padmini [facility] 09/09/2024 11:11:37 09/10/19 25 Destruction BN Lesions completed Yolanda Padmini [facility] 09/09/2024 11:13:38 06/29/19 23 transplantation of liver completed Tenisha Rodriges [facility] 07/07/2023 14:22:55 08/14/19 21 EXCISION, UVULA (SURG) completed Charleenenzo Gonzalez [facility] 08/14/2020 12:07:31 03/20/19 12 Unlisted px femur/knee completed Cecille Bianchi [facility] 06/30/2020 13:46:51 Imaging Results None recorded. Procedure Notes None recorded. Medical Equipment None Reported. Allergies Allergen ID Allergen Name Allergen Category Reaction Reaction Severity Criticality Documentation Date Start Date Code Code System Note Provider Name and Address Organization Details Recorded Time 007048 oxycodone medicatio n Not available Not available Not available 09/09/2024 7804 [facility] 10:59:16 Medications Name Sig Start Date Stop Date [...] MOUTH THREE TIMES DAILY FOR 5 DAYS 09/09 completed Not Available Not Available Not Available clopidogr el 75 mg tablet TAKE [...] TAKE 6 TABLETS BY MOUTH TWICE DAILY 09/09 completed Not Available Not Available Not Available rosuvasta tin 5 mg tablet TAKE [...] active Not Available Not Available Not Available nitrofura ntoin active Not Available Not Available Not Available sodium chloride 1,000 mg soluble tablet TAKE 1 TABLET BY MOUTH ONCE DAILY active Not Available Not Available No t Available posaconaz ole active Not Available Not Available Not Available prasugrel HCl 10 mg tablet TAKE [...] Available Not Available No t Available Vitals None Recorded Social History Question Answer Notes LastModified by Organizat ion Details LastModified Time Tobacco Smoking Status Former Smoker Cecille Huertaburn [facility] 06/30/2020 13:42:43 How Much Tobacco Do You [...] Arrhythmia N Emphysema N Esophagus/swallowing troubles N Hypothyroidism N Depression N Lung Disease N Glaucoma N Anesthesia Complications N Anxiety Disorder N Hearing Loss N Arthritis N Acid Reflux (GERD) Y Cancer N Stroke Y Hoarseness N Alcohol Overuse/Alcohol Abuse N High Cholesterol N Liver Disease N Snoring problems N Headaches N Kidney Disease N Allergies/Hayfever N Heart Problems N Mental handicap N Ear or Hearing Problems N Gallbladder Disease N Migraines N Thyroid Problems Y Goiter N Anemia N Chest Pain N Immune System Disorder N Stomach trouble N Heart Attack (CA) N Ulcers N Diabetes N Rheumatic Fever N Bleeding Disorder N Tuberculosis N AIDS/HIV N Hyperlipidemia N Asthma N Epilepsy/Seizures N Sleep Disorder N Hepatitis Y Heart Disease N Hypertension Y Past Encounters Encounter ID Performer Location Encounter Start Date Encounter Closed Date Diagnosis/Indication Diagnosis SNOMED-CT Code Diagnosis ICD10 Code Diagnosis Note [id number] CARLOS VIEIRA MD [address] [place] [address] 09/09/2024 10:42:56 09/09/2024 11:41:36 Multiple benign melanocytic nevi 878798147 D22.5 - Benign lesions seen on exam today- SPF 30 or higher broad-spec trum sunscreen recommende d with re-applica tion every 2 hours- Discussed sun protection measures, including wide-brimm ed hat, sun-protec tive clothing, and avoidance of sun during peak hours of 10am-4pm- Instructed to monitor for changes and to call us for appointmen t with any changing or worrisome lesions Seborrheic keratosis 394 305296 L82.1 - Benign overgrowth s of skin - Hereditary Senile angioma 2377567 I 78.1 - Benign blood vessel growths - Hereditary Solar lentigo 71846830 L 81.4 - Benign brown spots - Sun-induce d Actinic keratosis 817576 007 L57.0 Actinic keratoses are precancero us lesions that may progress to squamous cell carcinoma if untreated. UV light and genetics may increase risk. Treated lesions should blister, scab over, and heal within a few weeks. If treated lesion(s) does not resolve within 1-2 months, patient agrees to follow up for re-evaluat ion. Risks of LN2 include scarring and recurrence of lesion. No wound care is needed Inflamed s eborrheic keratosis 809539468 L82.0 R52 Pt reports this is painful/ir ritating.R ecommend LN2 today, no wound care needed.Ty ated lesions should blister, scab over, and heal within a few weeks. Risks of LN2 include scarring and recurrence of lesion.Fup with change or concerns Health Concerns Section Related Observation LastModified by Organization Detai ls LastModified Time None Recorded Concern Status LastModified by Organization Details LastModified Time None Recorded Payers Encounter Date Sequence Insurance Name Policy Number Policy Nguyen Covered Member ID Nguyen Member ID Guarantor Name 09/09/2024 1 [place] René Cornejo [id number] René Cornejo 09/09/2024 2 [employer] (MEDICARE SUPPLEMENT) PLAN G René Cornejo [id number] René Cornejo Notes Date Note Type Note Provider Name and Address Organization Details Recorded Time 09/09/2024 text/html Spot on R forear m, back, rough patches on L forearmAnnual, negative personal hxLiver transplant t is accompanied by his . CARLOS VIEIRA MD [facility] [place], [address], [facility] 09/09/2024 11:31:15
--- OUTSIDE RECORDS SUMMARY | 2024-09-23 09:35 | XMS_ITS | Encounter Summary ---
Author Organization [facility] Address [address] [place] [address] Care Team Providers Care Demand Manager Name Role Phone Samaria Price MD Unavailable Jasmin Marshall CNP Unavailable [phone] Megan Tamez RN Unavailable Unavailable Junie Aggarwal RN Unavailable Unava ilable Ese Johnson PharmD Unavailable Zaria vailable Carlos Dominguez DO Primary Care Provider [phone] Source Comments This information has been disclosed [...] release of HIV test results or diagnoses. [id number] Reason for Visit * Reason Comments Appointment Appointment Confirme d - Called patient to reschedule/change 11/07/[address] Corona from Dr. Ruiz, who will be still on service. agreed due to travel from a distant area. Encounter Details Date Type Department Care Team (Late Contact Info) Description 08/26/2024 Telephone [facility] I.D[facility] at [facility] [address] [facility] [address] [place] [address] Shalonda Ruiz MD [address] [facility] [place] [address] Appointment (Appointment Confirmed - Called [...] the past 12 months has th e [employer], gas, oil, or water company threatened to [...] Description 10/10/2024 12:31 PM EDT Hospital Encounter [facility] ENDOSCOPY [address] [place] [phone] Enrike Mims MD [address] [place] [phone] 10/10/2024 12:31 PM EDT - 10/10/2024 2:01 PM EDT Surgery [facility] ENDOSCOPY [address] [place] [phone] Enrike Mims MD [address] [place] [phone] ERCP Scheduled Procedures Name Priority Associated Diagnoses Date/Ti me 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 EDT documented as of this encounter Visit Diagnoses Not on filedocumented in this encounter Care Teams Demand Manager Relationship Specialty Start Date End Date Carlos Dominguez DO [address] [address] [address] [id number] PCP - General Internal Medicine 04/05/24 Samaria Price MD [facility]6 [facility] Hematology/[place] [address] Medical Oncologist [facility] Medical Oncology 10/20/21 Jasmin Marshall BRAID FOLDER [address] [place] [address] Hematology/[place] [address] Nurse Practitioner [facility] Hematology and Oncology 10/20/21 Megan Tamez, RN Nurse Clinician Medical Oncology 10/20/21 Junie Aggarwal, MARCOS Txp Post Coordinator Procurement Officer 10/14/22 Ese Johnson, NahunD Pharmacist Pharmacist 10/17/22 documented as of this encounter
--- OUTSIDE RECORDS SUMMARY | 2024-09-23 09:36 | XMS_ITS | Encounter Summary ---
Author Organization [facility] Address [address] [place] [address] Care Team Providers Care Tmd Teacher Name Role Phone Samaria Price MD Unavailable Jasmin Marshall CNP Unavailable [phone] Megan Tamez RN Unavailable Unavailable Junie Aggarwal RN Unavailable Unava ilable Ese Johnson PharmD Unavailable Zaria vailable Carlos Dominguez DO Primary Care Provider [phone] Source Comments This information has been disclosed [...] release of HIV test results or diagnoses. [id number] Reason for Visit * Reason Comments Medication Refill Encounter Details Date Type Department Care Team (Late st Contact Info) Description 08/20/2024 Refill [facility] Ophthalmology at [facility] [address] [facility] [address] [place] [phone] Zach Treviño MD [address] [place] [address] Social History Tobacco Use Types [...] Description 10/10/2024 12:31 PM EDT Hospital Encounter [facility] ENDOSCOPY [address] [place] [address] Enrike Mims MD [address] [place] [phone] 10/10/2024 12:31 PM EDT - 10/10/2024 2:01 PM EDT Surgery [facility] ENDOSCOPY [address] [place] [phone] Enrike Mims MD [address] [place] [phone] ERCP Scheduled Procedures Name Priority Associated Diagnoses Date/Ti me 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 EDT documented as of this encounter Visit Diagnoses Not on filedocumented in this encounter Care Teams Tmd Teacher Relationship Specialty Start Date End Date Alberto Carlos, [address] [address] [place] [id number] PCP - General Internal Medicine 04/05/24 Samaria Price MD [facility] Hematology/[place] [phone] Medical Oncologist [facility] Medical Oncology 10/20/21 Jasmin Marshall COLLECTIONS SPECIALIST [facility] General Acute Hospital Hematology/[place] [phone] Nurse Practitioner [facility] Hematology and Oncology 10/20/21 Megan Tamez, MARCOS Nurse Clinician Medical Oncology 10/20/21 Junie Aggarwal, MARCOS Txp Post Coordinator Logistics Assistant 10/14/22 Ese Johnson, NahunD Pharmacist Pharmacist 10/17/22 documented as of this encounter
--- OUTSIDE RECORDS SUMMARY | 2024-09-23 09:36 | XMS_ITS | Encounter Summary ---
Author Organization [facility] Address [address] [place] [address] Care Team Providers Care Strategies Analyst Name Role Phone Samaria Price MD Unavailable Jasmin Marshall CNP Unavailable [phone] Megan Tamez RN Unavailable Unavailable Junie Aggarwal RN Unavailable Unava ilable Ese Johnson PharmD Unavailable Zaria vailable Carlos Dominguez DO Primary Care Provider [phone] Source Comments This information has been disclosed [...] release of HIV test results or diagnoses. [id number] Health Encounter Details Date Type Department Care Team (Latest Contact Info) Description 08/29/2024 Results Follow-Up [facility] Gastroenterology at [facility] [address] [facility] [address] [place] [phone] Kolton Martinez MD [address] [place] [address] DXA bone density axial skeleton Social History Tobacco Use Types Packs/Day Years Used Date Smoking Tobacco: Never Smokeless Tobacco: Never Alcohol Use Standard Drinks/Week Comments Never 0 (1 standard drink = 0.6 oz pur e alcohol) Utilities Answer Date Recorded In the past 12 months has th e [employer], gas, oil, or water company threatened to [...] place to sleep or slept in a prison (including now)? 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 EDT documented as of this encounter Visit Diagnoses Not on filedocumented in this encounter Care Teams Strategies Analyst Relationship Specialty Start Date End Date Carlos Dominguez DO [address], [place] [address] [place] [id number] PCP - General Internal Medicine 04/05/24 Samaria Price MD [address] [place] [address] Hematology/[place] [phone] Medical Oncologist [facility] Medical Oncology 10/20/21 Jasmin Marshall BUYING AGENT [address] [facility] Hematology/[place] [phone] Nurse Practitioner [facility] Hematology and Oncology 10/20/21 Megan Tamez, RN Nurse Clinician Medical Oncology 10/20/21 Junie Aggarwal, MARCOS Txp Post Coordinator Head Still Operator 10/14/22 Ese Johnson, NahunD Pharmacist Pharmacist 10/17/22 documented as of this encounter
--- OUTSIDE RECORDS SUMMARY | 2024-09-23 09:36 | XMS_ITS | Encounter Summary ---
Author Organization [facility] Address [address] [place] [address] Care Team Providers Care Assistant Professor Of Forestry Name Role Phone Samaria Price MD Unavailable Jasmin Marshall CNP Unavailable [phone] Megan Tamez RN Unavailable Unavailable Junie Aggarwal RN Unavailable Unava ilable Ese Johnson PharmD Unavailable Zaria vailable Carlos Dominguez DO Primary Care Provider [phone] Source Comments This information has been disclosed [...] release of HIV test results or diagnoses. [id number] Health Encounter Details Date Type Department Care Team (Late st Contact Info) Description 08/31/2024 Results Follow-Up [facility] Advanced Heart Failure at [place] [facility] [address] [facility] [address] [place] [phone] Beth Crowe DNP [address] [place] [phone] B Natriuretic Peptide Social History Tobacco Use [...] place to sleep or slept in a half-way (including now)? 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 EDT documented as of this encounter Visit Diagnoses Not on filedocumented in this encounter Care Teams Assistant Professor Of Forestry Relationship Specialty Start Date End Date Carlos Domignuez DO [address] [address] [address] [id number] PCP - General Internal Medicine 04/05/24 Samaria Price MD [address] [place] [address] Hematology/[place] [phone] Medical Oncologist [facility] Medical Oncology 10/20/21 Jasmin Marshall, SENIOR INTERNET SALES CONSULTANT [address] [facility] Hematology/[place] [phone] Nurse Practitioner [facility] Hematology and Oncology 10/20/21 Megan Tamez, RN Nurse Clinician Medical Oncology 10/20/21 Junie Aggarwal, MARCOS Txp Post Coordinator Bus Dispatcher Interstate 10/14/22 Ese Johnson, NahunD Pharmacist Pharmacist 10/17/22 documented as of this encounter
--- OUTSIDE RECORDS SUMMARY | 2024-09-23 09:36 | XMS_ITS | Encounter Summary ---
Author Organization [facility] Address [address] [place] [address] Care Team Providers Care Delivery Crew Worker Name Role Phone Samaria Price MD Unavailable Jasmin Marshall CNP Unavailable [phone] Megan Tamez RN Unavailable Unavailable Junie Aggarwal RN Unavailable Unava ilable Ese Johnson PharmD Unavailable Zaria vailable Carlos Dominguez DO Primary Care Provider [phone] Source Comments This information has been disclosed [...] release of HIV test results or diagnoses. [id number] Encounter Details Date Type Department Care Team (Late st Contact Info) Description 08/27/2024 Rx Prior Authorization [facility] [address] [place] [address] Margarette Fletcher, RXT Social History Tobacco Use Types Packs/Day Years Used Date Smoking Tobacco: Never Smokeless Tobacco: Never Alcohol Use Standard Drinks/Week Comments Never 0 (1 standard drink = 0.6 oz pur e alcohol) Utilities Answer Date Recorded In the past 12 months has th e electric, [employer] oil, or water company threatened to shut [...] encounter Miscellaneous Notes * Telephone Encounter - SALAZAR Osullivan - 08/29/2024 12:51 PM EDT Images from the original note were not included. Patient informed via mGenerator message that a prior authorization has been approved for ENTRESTO 24-26mg ORAL TABLETS until 03/19/2025. Click on RX Prior Authorization link below for prior auth details. Juan Diego Barahona CPhT-ADV Pronouns: He/Him/His Senior Foil Spinner [facility] - Pharmacy Administration Prior Authorization Services [address] [place] [address]. P: [phone] F: [phone] * Telephone Encounter - SALAZAR Gresham - 08/27/2024 9:09 AM EDT Patient filling at [facility] pharmacy. Please inform [facility] of determination via [employer] SECURE CHAT. Any adverse determination information should also be routed back to the provider/provider's office. 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 EDT documented as of this encounter Visit Diagnoses Not on filedocumented in this encounter Care Teams Delivery Crew Worker Relationship Specialty Start Date End Date Carlos Dominguez DO [address], [place] [address] [place] [address] PCP - General Internal Medicine 04/05/24 Samaria Price MD [address] [place] [address] Hematology/[place] [phone] Medical Oncologist [facility] Medical Oncology 10/20/21 Jasmin Marshall, SENIOR FUND ACCOUNTANT [address] [place] [address] Hematology/[place] [phone] Nurse Practitioner [facility] Hematology and Oncology 10/20/21 Megan Tamez, MARCOS Nurse Clinician Medical Oncology 10/20/21 Junie Aggarwal, MARCOS Txp Post Coordinator Mineral Surveyor 10/14/22 Ese Johnson, NahunD Pharmacist Pharmacist 10/17/22 documented as of this encounter
--- OUTSIDE RECORDS SUMMARY | 2024-09-23 09:36 | XMS_ITS | Encounter Summary ---
Author Organization [facility] Address [address] [place] [address] Care Team Providers Care Senior Hardware Design Engineer Name Role Phone Samaria Price MD Unavailable Jasmin Marshall CNP Unavailable [phone] Megan Tamez RN Unavailable Unavailable Junie Aggarwal RN Unavailable Unava ilable Ese Johnson PharmD Unavailable Zaria vailable Carlos Dominguez DO Primary Care Provider [phone] Source Comments This information has been disclosed [...] release of HIV test results or diagnoses. [id number] Reason for Visit * Reason Comments Procedure REPEAT ERCP Encounter Details Date Type Department Care Team (Late Contact Info) Description 08/16/2024 Telephone [facility] Gastroenterology at [facility] Office 222 [facility] [address] [place] [address] Enrike Wilson MD [address] [place] [address] Procedure (/REPEAT ERCP) Social History [...] Patient is scheduled for a ERCP @ [facility] w/ GENERAL w/ Dr. WILSON on 10/10/2024. Pt instructed to arrive at 11:00 AM procedure is scheduled at 12:30 PM. Prep instructions for NPO AFTER MIDNIGHT NO Anticoagulants NO GLP-1 meds * Telephone Encounter - Lucita Leo - 08/16/2024 9:05 AM EDT ----- Message from Liliana Martinez MD sent at 05/27/2024 10:04 AM EDT ----- Regarding: Please schedule follow up ERCP for September 2024 Kolton Bearden documented in this encounter Plan of Treatment Upcoming Encounters Date Type Department Care Team (Late st Contact Info) Description 10/10/2024 12:31 PM EDT Hospital Encounter [facility] ENDOSCOPY [address] [place] [address] Enrike Wilson MD [address] [place] [phone] 10/10/2024 12:31 PM EDT - 10/10/2024 2:01 PM EDT Surgery [facility] ENDOSCOPY [address] [place] [phone] Enrike Wilson MD [address] [place] [phone] ERCP Scheduled Procedures Name Priority Associated Diagnoses Date/Ti va 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 EDT documented as of this encounter Visit Diagnoses Not on filedocumented in this encounter Care Teams Senior Hardware Design Engineer Relationship Specialty Start Date End Date Carlos Dominguez DO [address], [place] [address] [place] [address] PCP - General Internal Medicine 04/05/24 Samaria Price MD [address] [place] [address] Hematology/[place] [phone] Medical Oncologist [facility] Medical Oncology 10/20/21 Jasmin Marshall, TEACHER THEATER [employer]S [address] [place] [address] Hematology/[place] [phone] Nurse Practitioner [facility] Hematology and Oncology 10/20/21 Megan Tamez, MARCOS Nurse Clinician Medical Oncology 10/20/21 Junie Aggarwal, MARCOS Txp Post Coordinator Customer Development Representative 10/14/22 Ese Johnson, NahunD Pharmacist Pharmacist 10/17/22 documented as of this encounter
--- OUTSIDE RECORDS SUMMARY | 2024-09-23 09:36 | XMS_ITS | Encounter Summary ---
Author Organization [facility] Address [facility] [place] [address] Care Team Providers Care Lump Machine Operator Name Role Phone Samaria Price MD Unavailable Jasmin Marshall CNP Unavailable [phone] Megan Tamez RN Unavailable Unavailable Junie Aggarwal RN Unavailable Unava ilable Ese Johnson PharmD Unavailable Zaria vailable Carlos Dominguez DO Primary Care Provider [phone] Source Comments This information has been disclosed [...] release of HIV test results or diagnoses. [id number] Reason for Referral * Surgical (Routine) - Authorized Specialty Diagnoses / Procedures Referred By Arlet arana Referred To Contact Gastroenterology Diagnoses Biliary stricture S/P liver transplant ([facility]) Procedures Case request GI: ERCP W[place] ERCP DX COLLECTION SPECIMEN BRUSHING/WASHING [place] ERCP W/SPHINCTEROTOMY/PAPILLOT CHARLIE [place] ERCP REMOVE CALCULI/DEBRIS BILIARY/PANCREAS DUCT W[place] ERCP STENT PLACEMENT BILIARY/PANCREATIC DUCT W[place] ERCP REMOVE FOREIGN BODY/STENT BILIARY/PANC DUCT W[place] ERCP BILIARY/PANC DUCT STENT EXCHANGE W/DIL&WIRE Enrike Mims MD [address] [place] [address] Phone: tel: fax: Referral ID Status Reason Start Date Expiration Date V isits Requested Visits Authorized [id number] Authorized 08/16/2024 02/12/2025 1 1 Encounter Details Date Type Department Care Team (Late st Contact Info) Description 08/16/2024 Orders Only [facility] Gastroenterology at [place] [facility] 222 [facility] [address] [place] [address] Enrike Mims MD [address] [place] [address] Biliary stricture (Primary Dx); S/P liver transplant (CMS-HCC) Social History Tobacco Use Types Packs/Day Years Used Date Smoking Tobacco: Never Smokeless Tobacco: Never Alcohol Use Standard Drinks/Week Comments Never 0 (1 standard drink = 0.6 oz pur e alcohol) Utilities Answer Date Recorded In the past 12 months has th e [employer], gas, oil, or water [employer] threatened to shut off services in your [...] place to sleep or slept in a group home (including now)? No 04/11/2023 Yearly Questionnaire Answer [...] Hospital Encounter [facility] ENDOSCOPY [address] [place] [address] Enrike Mims MD [address] [place] [phone] 10/10/2024 12:31 PM EDT - 10/10/2024 2:01 PM EDT Surgery [facility] ENDOSCOPY [address] [place] [phone] Enrike Mims MD [address] [place] [address] ERCP Scheduled Procedures Name Priority Associated Diagnoses Date/Ti me 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 EDT documented as of this encounter Visit Diagnoses Diagnosis Biliary stricture- Primary Obstruction of bile duct S/P liver transplant (CMS-HCC) Biliary stricture Obstruction of bile duct documented in this encounter Care Teams Lump Machine Operator Relationship Specialty Start Date End Date Carlos Dominguez DO [address], [place] [address] [place] [address] PCP - General Internal Medicine 04/05/24 Samaria Price MD [address] [place] [address] Hematology/[place] [phone] Medical Oncologist [facility] Medical Oncology 10/20/21 Jasmin Marshall ENTRY LEVEL AUTOMOTIVE TECHNICIAN [address] [place] [address] Hematology/[place] [address] Nurse Practitioner [facility] Hematology and Oncology 10/20/21 Megan Tamez, MARCOS Nurse Clinician Medical Oncology 10/20/21 Junie Aggarwal, MARCOS Txp Post Coordinator Cleaning And Maintenance Worker 10/14/22 Ese oJhnson, PharmD Pharmacist Pharmacist 10/17/22 documented as of this encounter
--- OUTSIDE RECORDS SUMMARY | 2024-09-23 09:36 | XMS_ITS | Encounter Summary ---
Author Organization [facility] Address [address] [place] [address] Care Team Providers Care Strategic Solutions Consultant Name Role Phone Samaria Price MD Unavailable Jasmin Marshall CNP Unavailable [phone] Megan Tamez RN Unavailable Unavailable Junie Aggarwal RN Unavailable Unava ilable Ese Johnson PharmD Unavailable Zaria vailable Carlos Dominguez DO Primary Care Provider [phone] Source Comments This information has been disclosed [...] release of HIV test results or diagnoses. [id number] Reason for Referral * Physician/EFREN (Routine) - Closed Specialty Diagnoses / Procedures Referred By Arlet arana Referred To Contact Pharmacy Diagnoses Chronic systolic heart failure ([facility]) Beth Crowe, JORGE L [address] [place] [address] Phone: tel: fax: [facility] [place] [address] Phone: tel: Referral ID Status Reason Start Date Expiration Date Visits Re quested Visits Authorized [id number] Closed 07/05/2024 01/01/2025 1 1 Encounter Details Date Type Department Care Team (Late st Contact Info) Description 07/05/2024 Telephone [facility] Advanced Heart Failure at [facility] Office [address] [facility] [address] [place] [phone] Beth Crowe DNP [address] [place] [address] Social History Tobacco Use Types Packs/Day Years Used Date Smoking Tobacco: Never Smokeless Tobacco: Never Alcohol Use Standard Drinks/Week Comments Never 0 (1 standard drink = 0.6 oz pur e alcohol) Utilities Answer Date Recorded In the past 12 months has [employer], gas, oil, or water [employer] threatened to shut off services in your [...] (2013), Diverticulosis (2020), End stage liver disease ([facility]), GERD (gastroesophageal reflux disease) (1968), HCC (hepatocellular carcinoma) ([facility]), Hearing loss (1984), Heart failure ([facility]) (03/2023), High blood pressure (03/2020), High cholesterol,Hypertension, Hypothyroidism, Myocardial infarction ([facility]) (03/2023), Osteoporosis (2022), and Stroke ([facility]). Patient Active Problem List Diagnosis Date Noted H/O fracture 04/26/2023 Myocardial infarction ([facility]) 04/26/2023 Shortness of breath 04/26/2023 Chronic systolic heart failure ([facility]) 04/26/2023 Other specified counseling 04/26/2023 History of falling 02/21/2023 [facility] (current) use of anticoagulants 02/17/2023 Encounter for therapeutic drug monitoring 02/14/2023 Immunosuppression ([facility]) 02/14/2023 Pleural effusion, not elsewhere classified 01/31/2023 Solitary pulmonary nodule 01/31/2023 Insomnia, unspecified 01/31/2023 Personal history of urinary (tract) infections 01/31/2023 Unspecified fracture of left femur, subsequent encounter for closed fracture with routine healing 01/31/2023 BPH (benign prostatic hyperplasia) 12/07/2022 Benign prostatic hyperplasia 12/07/2022 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 10/17/2022 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 10/17/2022 [facility] current use of systemic steroids 10/17/2022 Hemiplga following cerebral infrc affecting left nondom side ([facility]) 10/01/2022 Critical illness myopathy 09/30/2022 Urinary retention 09/26/2022 Retention of urine 09/26/2022 Encounter for fitting and adjustment of urinary device 09/12/2022 Encounter for fitting and adjustment of urinary device 09/12/2022 Dysphagia 09/12/2022 Acute encephalopathy 08/28/2022 Antibiotic causing adverse effect 08/28/2022 Adverse effect of anti-infective 08/28/2022 Disorder of brain 08/28/2022 Brain abscesses 08/22/2022 [facility] 08/22/2022 Malignant neoplasm of liver, primary ([facility]) 08/21/2022 Liver transplant recipient ([facility]) 08/09/2022 Coronary artery disease involving napaimute coronary artery 08/09/2022 Oropharyngeal dysphagia 08/09/2022 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 Respiratory failure, unspecified, unspecified whether with hypoxia or hypercapnia ([facility]) 06/28/2022 Gastrostomy status ([facility]) 06/28/2022 Respiratory failure ([facility]) 06/28/2022 Malignant neoplasm of liver, primary, unspecified as to type ([facility]) 04/22/2022 Left foot drop 03/28/2022 Hypothyroidism, unspecified 03/20/2022 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 Essential (primary) hypertension 01/06/2022 HCC (hepatocellular carcinoma) ([facility]) 09/29/2021 Hepatocellular carcinoma ([facility]) 09/29/2021 Benign essential hypertension 09/23/2021 Constipation 09/23/2021 Diaphragmatic hernia without obstruction or gangrene 09/23/2021 Gastroesophageal reflux disease without esophagitis 09/23/2021 History of cerebrovascular accident with residual deficit 09/23/2021 Hypothyroidism 09/23/2021 Vitamin B12 deficiency (non anemic) 09/23/2021 Autoimmune hepatitis ([facility]) 09/23/2021 Unspecified cirrhosis of liver ([facility]) 09/23/2021 Diaphragmatic hernia 09/23/2021 History of cerebrovascular accident with residual deficit 09/23/2021 Vitamin B12 deficiency without anemia 09/23/2021 Visual loss 07/21/2021 Visual impairment 07/21/2021 Chronic autoimmune hepatitis ([facility]) 06/08/2021 Unspecified hearing loss, unspecified ear 07/22/2019 Hearing loss 07/22/2019 Athscl heart disease of napaimute coronary artery w/o ang pctrs 06/19/2019 Gastro-esophageal reflux disease without esophagitis 06/19/2019 Dvrtclos of intest, part unsp, w/o perf or 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 Patient to call with low Bps, symptoms [...] Description 10/10/2024 12:31 PM EDT Hospital Encounter [facility] ENDOSCOPY [address] [place] [address] Enrike Mims MD [address] [place] [phone] 10/10/2024 12:31 PM EDT - 10/10/2024 2:01 PM EDT Surgery [facility] ENDOSCOPY [address] [place] [phone] Enrike Mims MD [address] [place] [phone] ERCP Scheduled Procedures Name Priority Associated Diagnoses Date/Ti me 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 EDT Scheduled Referrals Name Type Priority Associated Diagnoses Order Schedule AMB referral for [facility] Medication Access Request Outpatient Referral Routine Chronic systolic heart failure (CMS-HCC) Ordered: 07/05/2024 documented as of this encounter Visit Diagnoses Diagnosis Chronic systolic heart failure (CMS-HCC)- Primary Chronic systolic heart failure Biliary stricture Obstruction of bile duct documented in this encounter Care Teams Strategic Solutions Consultant Relationship Specialty Start Date End Date Amisha DominguezewDO [address] [address] [place] [address] PCP - General Internal Medicine 04/05/24 Samaria Price MD [facility] Hematology/[place] [phone] Medical Oncologist [facility] Medical Oncology 10/20/21 Jasmin Marshall, WATER PLUMBER [address] [place] [address] Hematology/[place] [phone] Nurse Practitioner [facility] Hematology and Oncology 10/20/21 Megan Tamez, MARCOS Nurse Clinician Medical Oncology 10/20/21 Junie Aggarwal, MARCOS Txp Post Coordinator Senior [employer] Etl Developer 10/14/22 Ese Johnson, NahunD Pharmacist Pharmacist 10/17/22 documented as of this encounter
--- OUTSIDE RECORDS SUMMARY | 2024-09-23 09:36 | XMS_ITS | Encounter Summary ---
Author Organization [facility] Address [address] [place] [address] Care Team Providers Care Manager Training Name Role Phone Samaria Price MD Unavailable Jasmin Marshall CNP Unavailable [phone] Megan Tamez RN Unavailable Unavailable Junie Aggarwal RN Unavailable Unava ilable Ese Johnson PharmD Unavailable Zaria vailable Carlos Dominguez DO Primary Care Provider [phone] Source Comments This information has been disclosed [...] release of HIV test results or diagnoses. [id number] Reason for Visit * Reason Comments Results Encounter Details Date Type Department Care Team (Late st Contact Info) Description 09/02/2024 Telephone [facility] Liver Transplant at [address] [place] [address] Junie Aggarwal, MARCOS Results Social [...] place to sleep or slept in a nursing home (including now)? No 04/11/2023 Yearly Questionnaire [...] without clinically significant abnormalities. Immunosuppression therapeutic per [facility] liver transplant guidelines or custom goal as documented in prior clinic visits. Will continue to monitor as per previously determined lab intervals. documented in this encounter Plan of Treatment Upcoming Encounters Date Type Department Care Team (Late st Contact Info) Description 10/10/2024 12:31 PM EDT Hospital Encounter [facility] ENDOSCOPY [address] [place] [address] Enrike Mims MD [address] [place] [phone] 10/10/2024 12:31 PM EDT - 10/10/2024 2:01 PM EDT Surgery [facility] ENDOSCOPY [address] [place] [phone] Enrike Mims MD [address] [place] [phone] ERCP Scheduled Procedures Name Priority Associated Diagnoses Date/Ti me 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 EDT documented as of this encounter Visit Diagnoses Not on filedocumented in this encounter Care Teams Manager Training Relationship Specialty Start Date End Date AlbertoCarlos nieves DO [address], [place], [place] [address] [place], [place] [address] PCP - General Internal Medicine 04/05/24 Samaria Price MD [facility]8 [facility] Hematology/[place] [phone] Medical Oncologist [facility] Medical Oncology 10/20/21 Jasmin Marshall, CAPABILITY LEAD [facility] Hematology/[place] [phone] Nurse Practitioner [facility] Hematology and Oncology 10/20/21 Megan Tamez, MARCOS Nurse Clinician Medical Oncology 10/20/21 Junie Aggarwal, MARCOS Txp Post Coordinator Beater And Pulper Feeder 10/14/22 Ese Johnson, NahunD Pharmacist Pharmacist 10/17/22 documented as of this encounter
--- OUTSIDE RECORDS SUMMARY | 2024-09-23 09:36 | XMS_ITS | Encounter Summary ---
Author Organization [facility] Address [address] [place] [address] Care Team Providers Care Food Editor Name Role Phone Samaria Price MD Unavailable Jasmin Marshall CNP Unavailable [phone] Megan Tamez RN Unavailable Unavailable Junie Aggarwal RN Unavailable Unava ilable Ese Johnson PharmD Unavailable Zaria vailable Carlos Dominguez DO Primary Care Provider [phone] Source Comments This information has been disclosed [...] release of HIV test results or diagnoses. [id number] Reason for Visit * Reason Comments Results Encounter Details Date Type Department Care Team (Late st Contact Info) Description 08/20/2024 Telephone [facility] Liver Transplant at [address] [place] [address] Junie Aggarwal, MARCOS Results Social [...] without clinically significant abnormalities. Immunosuppression therapeutic per [facility] liver transplant guidelines or custom goal as documented in prior clinic visits. Will continue to monitor as per previously determined lab intervals. [employer] message sent to Pt to push hydration and repeat labs in 1 week to monitor kidney levels. documented in this encounter Plan of Treatment Upcoming Encounters Date Type Department Care Team (Late st Contact Info) Description 10/10/2024 12:31 PM EDT Hospital Encounter [facility] ENDOSCOPY [address] [place] [phone] Enrike Mims MD [address] [place] [phone] 10/10/2024 12:31 PM EDT - 10/10/2024 2:01 PM EDT Surgery [facility] ENDOSCOPY [address] [place] [phone] Enrike Mims MD [address] [place] [address] ERCP Scheduled Procedures Name Priority Associated Diagnoses Date/Ti sd 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 EDT documented as of this encounter Visit Diagnoses Not on filedocumented in this encounter Care Teams Food Editor Relationship Specialty Start Date End Date Amisha DominguezewDO [address], [place], [place] [address] [place], [place] [address] PCP - General Internal Medicine 04/05/[address] [facility]8 [facility] Hematology/[place] [phone] Medical Oncologist [facility] Medical Oncology 10/20/21 Jasmin Marshall DIAMOND DRILLER HELPER [address] [place] [address] Hematology/[place] [phone] Nurse Practitioner [facility] Hematology and Oncology 10/20/21 Megan Tamez, RN Nurse Clinician Medical Oncology 10/20/21 Junie Aggarwal, MARCOS Txp Post Coordinator Pastoral Counselor 10/14/22 Ese Johnson, NahunD Pharmacist Pharmacist 10/17/22 documented as of this encounter
--- OUTSIDE RECORDS SUMMARY | 2024-09-23 09:37 | XMS_ITS | Clinical Summary ---
Author Organization [facility] Address [address] [place] [address] Care Team Providers Care Screw Driver Operator Name Role Phone Leo Estrella MD Primary [...] of Treatment Not on file Care Teams Screw Driver Operator Relationship Specialty Start Date End Date Leo Estrella MD [address] [place] [address] PCP - General 07/31/20
--- OUTSIDE RECORDS SUMMARY | 2024-09-23 09:37 | XMS_ITS | Encounter Summary ---
Author Organization [facility] Address [address] [place] [address] Care Team Providers Care Metal Finish Inspector Name Role Phone Samaria Price MD Unavailable Jasmin Marshall CNP Unavailable [phone] Megan Tamez RN Unavailable Unavailable Junie Aggarwal RN Unavailable Unava ilable Ese Johnson PharmD Unavailable Zaria vailable Carlos Dominguez DO Primary Care Provider [phone] Source Comments This information has been disclosed [...] release of HIV test results or diagnoses. [id number] [facility] Reason for Visit * Reason Comments Advice Only Encounter Details Date Type Department Care Team (Late st Contact Info) Description 07/30/2024 Telephone [facility] Liver Transplant at [address] [place] [address] Junie Aggarwal, quill collector Only Social History Tobacco Use Types Packs/Day [...] place to sleep or slept in a care home (including now)? No 04/11/2023 Yearly Questionnaire [...] Description 10/10/2024 12:31 PM EDT Hospital Encounter [facility] ENDOSCOPY [address] [place] [phone] Enrike Mims MD [address] [place] [phone] 10/10/2024 12:31 PM EDT - 10/10/2024 2:01 PM EDT Surgery [facility] ENDOSCOPY [address] [place] [phone] Enrike Mims MD [address] [place] [address] ERCP Scheduled Procedures Name Priority Associated Diagnoses Date/Ti ny 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 EDT documented as of this encounter Visit Diagnoses Not on filedocumented in this encounter Care Teams Metal Finish Inspector Relationship Specialty Start Date End Date Carlos Dominguez DO [address], [place] [address] [place], [place] [address] PCP - General Internal Medicine 04/05/24 Samaria Price MD [address] [place] [address] Hematology/[place] [phone] Medical Oncologist [facility] Medical Oncology 10/20/21 Jasmin Marshall, GUITAR REPAIRER [address] [place] [address] Hematology/[place] [phone] Nurse Practitioner [facility] Hematology and Oncology 10/20/21 Megan Tamez, MARCOS Nurse Clinician Medical Oncology 10/20/21 Junie Aggarwal, MARCOS Txp Post Coordinator Garage Supervisor 10/14/22 Ese Johnson, NahunD Pharmacist Pharmacist 10/17/22 documented as of this encounter
--- OUTSIDE RECORDS SUMMARY | 2024-09-23 09:37 | XMS_ITS | Encounter Summary ---
Author Organization [facility] Address [address] [place] [address] Care Team Providers Care Compo Caster Name Role Phone Samaria Price MD Unavailable Jasmin Marshall CNP Unavailable [phone] Megan Tamez RN Unavailable Unavailable Delores BETTS MD, George Primary Care Provide r Vibha Irwin RN Unavailable Unavaila Natalie Gordon RN Unavailable Unavailabl Kelli Rodriguez RN Unavailable Unavail able Junie Aggarwal RN Unavailable Unava ilable Ese Johnson PharmD Unavailable Zaria vailable Carlos Dominguez DO Primary Care Provider [phone] Source Comments This information has been disclosed [...] release of HIV test results or diagnoses. [id number] Encounter Details Date Type Department Care Team (Late st Contact Info) Description 08/06/2022 Ophth Exam [facility] Ophthalmology at [facility] [address] [facility] [address] [place] [phone] Letty Rey MD Social History Tobacco Use [...] Description 10/10/2024 12:31 PM EDT Hospital Encounter [facility] ENDOSCOPY [address] [place] [phone] Enrike Mims MD [address] [place] [phone] 10/10/2024 12:31 PM EDT - 10/10/2024 2:01 PM EDT Surgery [facility] ENDOSCOPY [address] [place] [address] Enrike Mims MD [address] [place] [phone] ERCP Scheduled Procedures Name Priority Associated [...] documented as of this encounter Care Teams Compo Caster Relationship Specialty Start Date End Date Leo Estrella III, MD [address] [place], [place] [id number] PCP - General Family Medicine 12/22/21 04/04/24 Carlos Dominguez DO [address] [address] [place] [address] PCP - General Internal Medicine 04/05/24 Samaria Price MD [facility]8 [facility] Hematology/[place] [phone] Medical Oncologist [facility] Medical Oncology 10/20/21 Jasmin Marshall, FENCE REPAIRMAN [facility]8 [facility] Hematology/[place] [phone] Nurse Practitioner [facility] Hematology and Oncology 10/20/21 Megan Tamez, RN Nurse Clinician Medical Oncology 10/20/21 Vibha Irwin, RN Nurse Navigator Gastrointestinal Oncology 01/14/22 3 Natalie Harp, MARCOS Txp Post Coordinator Organic Gardening Teacher 07/05/2209/05 Kelli Castillo, RN Txp Post Coordinator 09/06/22 11/21/22 Junie Aggarwal, RN Txp Post Coordinator Organic Gardening Teacher 10/14/22 Ese Johnson, PharmD Pharmacist Pharmacist 10/17/22 documented as of this encounter
--- OUTSIDE RECORDS SUMMARY | 2024-09-23 09:37 | XMS_ITS | Encounter Summary ---
Author Organization [facility] Address [address] [place] [address] Care Team Providers Care Global Risk Management Director Name Role Phone Samaria Price MD Unavailable Jasmin Marshall CNP Unavailable [phone] Megan Tamez RN Unavailable Unavailable Junie Aggarwal RN Unavailable Unava ilable Ese Johnson PharmD Unavailable Zaria vailable Carlos Dominguez DO Primary Care Provider [phone] Source Comments This information has been disclosed [...] release of HIV test results or diagnoses. 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[facility]) History of falling H/O fracture [facility] Liver Transplant at [address] [address] Phone: tel: fax: Referral ID Status Reason Start Date Expiration Date V isits Requested Visits Authorized [id number] New Request 07/24/2024 01/20/2025 1 1 Reason for Visit * Reason Comments Advice Only Encounter Details Date Type Department Care Team (Late st Contact Info) Description 07/24/2024 Telephone [facility] Liver Transplant at [facility] [address] [facility] [address] [place] [address] Junie Aggarwal, job forwarder Only Social History Tobacco Use Types Packs/Day [...] Description 10/10/2024 12:31 PM EDT Hospital Encounter [facility] ENDOSCOPY [address] [place] [address] Enrike Mims MD [address] [place] [address] 10/10/2024 12:31 PM EDT - 10/10/2024 2:01 PM EDT Surgery [facility] ENDOSCOPY [address] [place] [phone] Enrike Mims MD [address] [place] [phone] ERCP Scheduled Procedures Name Priority Associated Diagnoses Date/Ti me 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 EDT Scheduled Referrals Name Type Priority Associated Diagnoses Orde r Schedule Home Health Outpatient Referral Routine S/P liver transplant ([facility]) Left foot drop 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[facility]) History of falling H/O fracture Ordered: 07/24/2024 documented as of this encounter Visit Diagnoses Diagnosis S/P liver transplant (CMS-HCC)- Primary Left foot drop Other acquired deformity of ankle and foot 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CMS-HCC) Aspergillosis History of falling H/O fracture Biliary stricture Obstruction of bile duct documented in this encounter Care Teams Global Risk Management Director Relationship Specialty Start Date End Date Carlos Dominguez DO [address], [place] [address] [place] [address] PCP - General Internal Medicine 04/05/24 Samaria Price MD [address] [place] [address] Hematology/[place] [phone] Medical Oncologist [facility] Medical Oncology 10/20/21 Jasmin Marshall CNP [address] [place] [address] Hematology/[place] [phone] Nurse Practitioner [facility] Hematology and Oncology 10/20/21 Megan Tamez, RN Nurse Clinician Medical Oncology 10/20/21 Junie Aggarwal, RN Txp Post Coordinator Endodontist 10/14/22 Ese Johnson, NahunD Pharmacist Pharmacist 10/17/22 documented as of this encounter
--- OUTSIDE RECORDS SUMMARY | 2024-09-23 09:37 | XMS_ITS | Encounter Summary ---
Author Organization [facility] Address [address] [place] [address] Care Team Providers Care Mail Examiner Name Role Phone Samaria Price MD Unavailable Jasmin Marshall CNP Unavailable [phone] Megan Tamez RN Unavailable Unavailable Junie Aggarwal RN Unavailable Unava ilable Ese Johnson PharmD Unavailable Zaria vailable Carlos Dominguez DO Primary Care Provider [phone] Source Comments This information has been disclosed [...] release of HIV test results or diagnoses. [id number] Health Encounter Details Date Type Department Care Team (Late st Contact Info) Description 08/14/2024 Orders Only [facility] Advanced Heart Failure at [facility] [address] [facility] [address] [place] [phone] Beth Crowe, JORGE L [address] [place] [address] Social History Tobacco Use Types [...] 12:31 PM EDT Hospital Encounter [facility] ENDOSCOPY [address] [place] [phone] Enrike Mims MD [address] [place] [phone] 10/10/2024 12:31 PM EDT - 10/10/2024 2:01 PM EDT Surgery [facility] ENDOSCOPY [address] [place] [phone] Enrike Mims MD [address] [place] [phone] ERCP Scheduled Procedures Name Priority Associated Diagnoses Date/Ti me 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 EDT documented as of this encounter Visit Diagnoses Not on filedocumented in this encounter Care Teams Mail Examiner Relationship Specialty Start Date End Date Carlos Dominguez DO [address] [place] [address] [place] [id number] PCP - General Internal Medicine 04/05/24 Samaria Price MD [address] [place] [address] Hematology/[place] [phone] Medical Oncologist [facility] Medical Oncology 10/20/21 Jasmin Marshall, VEHICLE ASSEMBLY INSPECTOR [facility]8 [facility] Hematology/[place] [phone] Nurse Practitioner [facility] Hematology and Oncology 10/20/21 Megan Tamez, RN Nurse Clinician Medical Oncology 10/20/21 Junie Aggarwal, MARCOS Txp Post Coordinator Senior Data Modeler 10/14/22 Ese Johnson, PharmD Pharmacist Pharmacist 10/17/22 documented as of this encounter
--- OUTSIDE RECORDS SUMMARY | 2024-09-23 09:37 | XMS_ITS | Encounter Summary ---
Author Organization [facility] Address [facility] [place] [address] Care Team Providers Care Special Forces Medical Sergeant Name Role Phone Samaria Price MD Unavailable Jasmin Marshall CNP Unavailable [phone] Megan Tamez RN Unavailable Unavailable Delores BETTS MD, George Primary Care Provide r Vibha Irwin RN Unavailable Unavaila Natalie Gordon RN Unavailable Unavailabl Kelli Rodriguez RN Unavailable Unavail able Junie Aggarwal RN Unavailable Unava ilable Ese Johnson PharmD Unavailable Zaria vailable Carlos Dominguez DO Primary Care Provider [phone] Source Comments This information has been disclosed [...] release of HIV test results or diagnoses. [id number] Encounter Details Date Type Department Care Team (Late st Contact Info) Description 08/15/2022 Orders Only [facility] Radiology [address] [place] [phone] Robert Phelps, RT Social History Tobacco Use [...] PM EDT Hospital Encounter [facility] ENDOSCOPY [address] [place] [address] Enrike Mims MD [address] [place] [phone] 10/10/2024 12:31 PM EDT - 10/10/2024 2:01 PM EDT Surgery [facility] ENDOSCOPY [address] [place] [phone] Enrike Mims MD [address] [place] [phone] ERCP Scheduled Procedures Name Priority Associated Diagnoses [...] documented as of this encounter Care Teams Special Forces Medical Sergeant Relationship Specialty Start Date End Date Leo Estrella III, MD [address] [place], [place] [id number] PCP - General Family Medicine 12/22/21 04/04/24 Carlos Dominguez DO [address] [address] [place] [address] PCP - General Internal Medicine 04/05/24 Samaria Price MD [address] [place] [address] Hematology/[place] [phone] Medical Oncologist [facility] Medical Oncology 10/20/21 Jasmin Marshall, EMISSION SPECIALIST [facility]8 [facility] Hematology/[place] [address] Nurse Practitioner [facility] Hematology and Oncology 10/20/21 Megan Tamez, RN Nurse Clinician Medical Oncology 10/20/21 Vibha Irwin, MARCOS Nurse Navigator Gastrointestinal Oncology 01/14/22 3 Natalie Harp, RN Txp Post Coordinator Fabric Cutter 07/05/2209/05 Kelli Castillo, RN Txp Post Coordinator 09/06/22 11/21/22 Junie Aggarwal, RN Txp Post Coordinator Fabric Cutter 10/14/22 Ese Johnson, NahunD Pharmacist Pharmacist 10/17/22 documented as of this encounter
--- OUTSIDE RECORDS SUMMARY | 2024-09-23 09:37 | XMS_ITS | Encounter Summary ---
Author Organization [facility] Address [address] [place] [address] Care Team Providers Care Front Desk Monitor Name Role Phone Samaria Price MD Unavailable Jasmin Marshall CNP Unavailable [phone] Megan Tamez RN Unavailable Unavailable Junie Aggarwal RN Unavailable Unava ilable Ese Johnson PharmD Unavailable Zaria vailable Carlos Dominguez DO Primary Care Provider [phone] Source Comments This information has been disclosed [...] release of HIV test results or diagnoses. [id number] Health Reason for Visit * Reason Comments Medication Refill Encounter Details Date Type Department Care Team (Late st Contact Info) Description 06/27/2024 Refill [facility] Ophthalmology at [facility] [address] [facility] [address] [place] [phone] Jas Sierra MD [address] [place] [address] Social History Tobacco Use Types [...] Description 10/10/2024 12:31 PM EDT Hospital Encounter [facility] ENDOSCOPY [address] [place] [address] Enrike Mims MD [address] [place] [phone] 10/10/2024 12:31 PM EDT - 10/10/2024 2:01 PM EDT Surgery [facility] ENDOSCOPY [address] [place] [phone] Enrike Mims MD [address] [place] [phone] ERCP Scheduled Procedures Name Priority Associated Diagnoses Date/Ti me 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 EDT documented as of this encounter Visit Diagnoses Not on filedocumented in this encounter Care Teams Front Desk Monitor Relationship Specialty Start Date End Date Alberto Carlos, [address] [address] [place] [address] PCP - General Internal Medicine 04/05/24 Samaria Price MD [address] [place] [address] Hematology/[place] [phone] Medical Oncologist [facility] Medical Oncology 10/20/21 Jasmin Marshall AIR CONDITIONING INSTALLER [address] [place] [address] Hematology/[place] [phone] Nurse Practitioner [facility] Hematology and Oncology 10/20/21 Megan Tamez, MARCOS Nurse Clinician Medical Oncology 10/20/21 Junie Aggarwal, MARCOS Txp Post Coordinator Metals Analyst 10/14/22 Ese Johnson, NahunD Pharmacist Pharmacist 10/17/22 documented as of this encounter
--- OUTSIDE RECORDS SUMMARY | 2024-09-23 09:37 | XMS_ITS | Encounter Summary ---
Author Organization [facility] Address [address] [place] [address] Care Team Providers Care Crusher Dry Ground Mica Name Role Phone Samaria Price MD Unavailable Jasmin Marshall CNP Unavailable Megan Tamez RN Unavailable Unavailable Delores BETTS MD, George Primary Care Provide r Vibha Irwin RN Unavailable Unavaila Natalie Gordon RN Unavailable Unavailabl Kelli Rodriguez RN Unavailable Unavail able Junie Aggarwal RN Unavailable Unava ilable Ese Johnson PharmD Unavailable Zaria vailable Carlos Dominguez DO Primary Care Provider [phone] Source Comments This information has been disclosed [...] release of HIV test results or diagnoses. [id number] Encounter Details Date Type Department Care Team (Late st Contact Info) Description 08/02/2022 Ophth Exam [facility] [address] [place] [address] Lisa Rm MD [address] [place] [address] Social History Tobacco Use Types Packs/Day Years [...] Description 10/10/2024 12:31 PM EDT Hospital Encounter [facility] ENDOSCOPY [address] [place] [phone] Enrike Mims MD [address] [place] [phone] 10/10/2024 12:31 PM EDT - 10/10/2024 2:01 PM EDT Surgery [facility] ENDOSCOPY [address] [place] [phone] Enrike Mims MD [address] [place] [phone] ERCP Scheduled Procedures Name Priority Associated Diagnoses [...] documented as of this encounter Care Teams Crusher Dry Ground Mica Relationship Specialty Start Date End Date Leo Estrella III, MD [address] [place] [address] PCP - General Family Medicine 12/22/21 04/04/24 Carlos Dominguez DO [address] [facility], [place] [address] [place] [address] PCP - General Internal Medicine 04/05/24 Samaria Price MD [address] [place] [address] Hematology/[place] [phone] Medical Oncologist [facility] Medical Oncology 10/20/21 Jasmin Marshall ASSET ADMINISTRATOR [address] [facility] Hematology/[place] [phone] Nurse Practitioner [facility] Hematology and Oncology 10/20/21 Megan Tamez, RN Nurse Clinician Medical Oncology 10/20/21 Vibha Irwin, MARCOS Nurse Navigator Gastrointestinal Oncology 01/14/22 3 Natalie Harp, RN Txp Post Coordinator Lithographic Retoucher Apprentice 07/05/2209/05 Kelli Castillo, RN Txp Post Coordinator 09/06/22 11/21/22 Junie Aggarwal, MARCOS Txp Post Coordinator Lithographic Retoucher Apprentice 10/14/22 Ese Johnson, PharmD Pharmacist Pharmacist 10/17/22 documented as of this encounter
--- OUTSIDE RECORDS SUMMARY | 2024-09-23 09:37 | XMS_ITS | Encounter Summary ---
Author Organization [facility] Address [facility] [place] [address] Care Team Providers Care Art Teacher Name Role Phone Samaria Price MD Unavailable Jasmin Marshall CNP Unavailable [phone] Megan Tamez RN Unavailable Unavailable Junie Aggarwal RN Unavailable Unava ilable Ese Johnson PharmD Unavailable Zaria vailable Carlos Dominguez DO Primary Care Provider [phone] Source Comments This information has been disclosed [...] release of HIV test results or diagnoses. [id number] Reason for Visit * Reason Comments Medical Management Plan of Care Inquiry /Question Encounter Details Date Type Department Care Team (Late st Contact Info) Description 08/14/2024 Telephone [facility] Advanced Heart Failure at [facility] Office [address] [facility] [address] [place] [phone] Beth Crowe DNP [address] [facility] [place] [address] Medical Management (Plan of Care [...] and Pts blood pressure ranges. Please call [phone] documented in this encounter Plan of Treatment Upcoming Encounters Date Type Department Care Team (Late st Contact Info) Description 10/10/2024 12:31 PM EDT Hospital Encounter [facility] ENDOSCOPY [address] [place] [address] Enrike Mims MD [address] [place] [phone] 10/10/2024 12:31 PM EDT - 10/10/2024 2:01 PM EDT Surgery [facility] ENDOSCOPY [address] [phone] Enrike Mims MD [address] [place] [phone] ERCP Scheduled Procedures Name Priority Associated Diagnoses Date/Ti me 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 EDT documented as of this encounter Visit Diagnoses Not on filedocumented in this encounter Care Teams Art Teacher Relationship Specialty Start Date End Date Carlos Dominguez DO [address] [address] MANE Wren [id number] PCP - General Internal Medicine 04/05/24 Samaria Price MD [facility] Hematology/[place] [address] Medical Oncologist [facility] Medical Oncology 10/20/21 Jasmin Marshall CNP [facility] Hematology/[place] [phone] Nurse Practitioner [facility] Hematology and Oncology 10/20/21 Megan Tamez, RN Nurse Clinician Medical Oncology 10/20/21 Junie Aggarwal, MARCOS Txp Post Coordinator Arc Cutter Plasma Arc 10/14/22 Ese Johnson, NahunD Pharmacist Pharmacist 10/17/22 documented as of this encounter
--- OUTSIDE RECORDS SUMMARY | 2024-09-23 09:37 | XMS_ITS | Encounter Summary ---
Author Organization [facility] Address [address] [place] [address] Care Team Providers Care Drapery Inspector Name Role Phone Samaria Price MD Unavailable Jasmin Marshall CNP Unavailable [phone] Megan Tamez RN Unavailable Unavailable Delores BETTS MD, George Primary Care Provide r Vibha Irwin RN Unavailable Unavaila Natalie Gordon RN Unavailable Unavailabl Kelli Rodriguez RN Unavailable Unavail able Junie Aggarwal RN Unavailable Unava ilable Ese Johnson PharmD Unavailable Zaria vailable Carlos Dominguez DO Primary Care Provider [phone] Source Comments This information has been disclosed [...] release of HIV test results or diagnoses. [id number] Encounter Details Date Type Department Care Team (Late st Contact Info) Description 08/01/2022 Ophth Exam [facility] Ophthalmology at [facility] [address] [facility] [address] [place] [address] Shawn Butler MD Social History Tobacco Use [...] Description 10/10/2024 12:31 PM EDT Hospital Encounter [facility] ENDOSCOPY [address] [place] [phone] Enrike Mims MD [address] [place] [phone] 10/10/2024 12:31 PM EDT - 10/10/2024 2:01 PM EDT Surgery [facility] ENDOSCOPY [address] [place] [phone] Enrike Mims MD [address] [place] [phone] ERCP Scheduled Procedures Name Priority Associated Diagnoses [...] documented as of this encounter Care Teams Drapery Inspector Relationship Specialty Start Date End Date Leo Estrella III, MD [address] [place] [address] PCP - General Family Medicine 12/22/21 04/04/24 Carlos Dominguez DO [address] [place] [address] [place] [address] PCP - General Internal Medicine 04/05/24 Samaria Price MD [address] [place] [address] Hematology/[place] [phone] Medical Oncologist [facility] Medical Oncology 10/20/21 Jasmin Marshall TRANSPORTER DRIVER [address] [facility] Hematology/[place] [address] Nurse Practitioner [facility] Hematology and Oncology 10/20/21 Megan Tamez, RN Nurse Clinician Medical Oncology 10/20/21 Vibha Irwin, RN Nurse Navigator Gastrointestinal Oncology 01/14/22 3 Natalie Harp, MARCOS Txp Post Coordinator Lug Breaker And Wire Puller 07/05/2209/05 Kelli Castillo, MARCOS Txp Post Coordinator 09/06/22 11/21/22 Junie Aggarwal, RN Txp Post Coordinator Lug Breaker And Wire Puller 10/14/22 Ese Johnson, PharmD Pharmacist Pharmacist 10/17/22 documented as of this encounter
--- OUTSIDE RECORDS SUMMARY | 2024-09-23 09:37 | XMS_ITS | Encounter Summary ---
Author Organization [facility] Address [address] [place] [address] Care Team Providers Care Bath Mix Operator Name Role Phone Samaria Price MD Unavailable Jasmin Marshall CNP Unavailable [phone] Megan Tamez RN Unavailable Unavailable Junie Aggarwal RN Unavailable Unava ilable Ese Johnson PharmD Unavailable Zaria vailable Carlos Dominguez DO Primary Care Provider [phone] Source Comments This information has been disclosed [...] release of HIV test results or diagnoses. [id number] Health Encounter Details Date Type Department Care Team (Late st Contact Info) Description 07/26/2024 Orders Only [facility] Liver Transplant at [address] [address] Kolton Martinez MD [address] [place] [address] Social History Tobacco Use Types [...] Description 10/10/2024 12:31 PM EDT Hospital Encounter [facility] ENDOSCOPY [address] [place] [phone] Enrike Mims MD [address] [place] [phone] 10/10/2024 12:31 PM EDT - 10/10/2024 2:01 PM EDT Surgery [facility] ENDOSCOPY [address] [place] [phone] Enrike Mims MD [address] [place] [phone] ERCP Scheduled Procedures Name Priority Associated Diagnoses Date/Ti me 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 EDT documented as of this encounter Visit Diagnoses Not on filedocumented in this encounter Care Teams Bath Mix Operator Relationship Specialty Start Date End Date Carlos Dominguez DO [address] [place] [address] MANE Wren [phone] PCP - General Internal Medicine 04/05/24 Samaria Price MD [address] [place] [address] Hematology/[place] [phone] Medical Oncologist [facility] Medical Oncology 10/20/21 Jasmin Marshall NURSE ORTHOPAEDIC [facility]8 [facility] Hematology/[place] [phone] Nurse Practitioner [facility] Hematology and Oncology 10/20/21 Megan Tamez, MARCOS Nurse Clinician Medical Oncology 10/20/21 Junie Aggarwal, MARCOS Txp Post Coordinator Production Clerk 10/14/22 Ese Johnson, PharmD Pharmacist Pharmacist 10/17/22 documented as of this encounter
--- OUTSIDE RECORDS SUMMARY | 2024-09-23 09:38 | XMS_ITS | Data Portability ---
Author Organization [facility] Address [address] [facility] [address] [place] [address] Care Team Providers Care River Transportation Worker Name Role Phone O NICKI BAEZ Real Estate Accountant MONIQUE LOPEZ Primary Care Provider Assessment No assessment recorded. Plan of Treatment Reminders Order Date Submit Date Provider Last Modified By Organization Details Last Modified Time Details Appointments FOLLOW UP DAK 2025 10:40A Deven VIEIRA MD Not available Not available Not available Lab None recorded . Referral None recorded . Procedures None recorded . Surgeries None recorded . Imaging None recorded . Medication Orders None recorded . Patient TargetsNo targets recorded. Patient Instructions Encounter Date Encounter Id Patient Instructions Last Modified By Organization Details Last Modified Time 06/30/2020 [id number] 1. Recommend partial uvulectomy. Full risks, complications, [...] may increase his risk of postoperative bleeding. [email or web address] Not available 06/30/2020 14:25:12 08/28/2020 [id number] 1. Surgical pathology reviewed 2. 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 Procedures Surgical History Date Name Laterality Status Provider Name and Address Organization Details Recorded Time 09/10/19 25 Destruction Premalignant Lesion(s) completed Yolanda [facility] 09/09/2024 11:11:37 09/10/19 25 Destruction BN Lesions completed Yolanda [facility] 09/09/2024 11:13:38 06/29/19 23 transplantation of liver completed Tenisha Rodriges [facility] 07/07/2023 14:22:55 08/14/19 21 EXCISION, UVULA (SURG) completed Charleen Gonzalez [facility] 08/14/2020 12:07:31 03/20/19 12 Unlisted px femur/knee completed Cecille [facility] 06/30/2020 13:46:51 Imaging Results None recorded. Procedure Notes None recorded. Medical Equipment None Reported. Allergies Allergen ID Allergen Name Allergen Category Reaction Reaction Severity Criticality Documentation Date Start Date Code Code System Note Provider Name and Address Organization Details Recorded Time 220714 oxycodone medicatio n Not available Not available Not available 09/09/2024 7804 RxNorm Yolanda Padmini [facility] 10:59:16 Medications Name Sig Start Date Stop [...] Address Organization Details Last Updated DateTime 1 26189.4 g 26.4 kg/m2 177.8 cm 97.3 [degF] 98 % 98 % 73 /min 145/86 mm[Hg] Cecille Bianchi [facility] 13:50:13 Date Recorded Body height Body mass index (BMI) Body weight Body temperature Heart rate Oxygen saturation Oxygen saturation in Arterial blood by Pulse oximetry Systolic And Diastolic Provider Name and Address Organization Details Last Updated DateTime 1 177.8 cm 25.9 kg/m2 03747.0 3 g 97.5 [degF] 72 /min 96 % 96 % 106/69 mm[Hg] Cristina Wagoner [facility] 13:14:44 Social History Question Answer Notes LastModified by [email or web address] ion Details LastModified Time Tobacco Smoking Status Former Smoker Cecillemargie Bianchi [facility] 06/30/2020 13:42:43 How Much Tobacco Do You Smoke? 0.5 [email or web address] Information not available 06/30/2020 Sex: Unknown Functional Status Question Answer Note LastModified by Organization D etails LastModified Time What is your level of alcohol consumption? None [email or web address] Information not available 06/30/2020 Mental Status None recorded. Family History Relationship Description Onset Age of this Age Resolved Age Notes LastModified by Organization Details LastModified Time Father Heart disease [email or web address] Not available 06/30 13:43:05 Father Hypertensive disorder [email or web address] Not available 06/30 13:43:10 Medical History Condition Response Kidney Stones N Hyperthyroidism N Heart Arrhythmia N Emphysema N Esophagus/swallowing troubles N Glaucoma N Lung Disease N Depression N Hypothyroidism N Anesthesia Complications N Anxiety Disorder N [...] Pain N Stomach trouble N Heart Attack (MS) N Ulcers N Diabetes N Rheumatic Fever N Bleeding Disorder N Tuberculosis N AIDS/HIV N Hyperlipidemia N Asthma N Epilepsy/Seizures N Sleep Disorder N Hepatitis Y Heart Disease N Hypertension Y Past Encounters Encounter ID Performer Location Encounter Start Date Encounter Closed Date Diagnosis/Indication Diagnosis SNOMED-CT Code Diagnosis ICD10 Code Diagnosis Note [id number] NICOLAS CANTOR III, MD [facility] [address] [place] [address] 06/30/2020 13:17:58 06/30/2020 14:27:01 Edema of uvula 773937919 J39.8 - 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 [id number] NICOLAS CANTOR III, MD [facility] [address] [place] [address] 08/28/2020 13:07:37 08/28/2020 14:28:34 Edema of uvula 445921947 J39.8 - S/p Partial Uvulectomy (08/13/20) Dysphagia 31795415 R13.1 0 - S/p Partial Uvulectomy (08/13/20) [id number] NICKI BAEZ MD [address] [address] [place] [address] 07/07/2023 13:21:08 07/07/2023 15:16:16 Multiple benign melanocytic nevi 698723581 D22.5 - Benign appearing, reassuranc e- Counseled on importance of daily sun protection and self skin exams/bharat toring for ugly duckling lesions Seborrheic keratosis 394 125380 L82.1 - Benign appearing, reassuranc e Senile angioma 1840934 I 78.1 - Benign appearing, reassuranc e Solar lentigo 59895443 L 81.4 - Benign appearing, reassuranc e [id number] CARLOS VIEIRA MD [address] [phone] 09/09/2024 10:42:56 09/09/2024 11:41:36 Multiple benign melanocytic nevi 638487494 D22.5 - Benign lesions seen on exam [...] changing or worrisome lesions Seborrheic keratosis 394 857738 L82.1 - Benign overgrowth s of skin - Hereditary Senile angioma 9990002 I 78.1 - Benign blood vessel growths - Hereditary Solar lentigo 28670153 L 81.4 - Benign brown spots - Sun-induce d Actinic keratosis 007 L57.0 Actinic keratoses are precancero us [...] care is needed Inflamed s eborrheic keratosis 795836254 L82.0 R52 Pt reports this is painful/ir [...] AARP (MEDICARE SUPPLEMENT) PLAN G René Cornejo [id number] René Cornejo 09/06/2024 1 MEDIC[place]ICARE) René Cornejo [id number] René Cornejo Notes Date Note Type Note [...] doing well otherwise. NICOLAS CANTOR III, MD [address] [place] [address], [phone], [facility] 06/30/2020 14:26:03 08/28/2020 text/html René returns to [...] major concerns. NICOLAS CANTOR III, MD [address] [place] [address], [phone], [facility] 08/28/2020 13:29:03 07/07/2023 text/html Patient is here for a full body skin exam. - Last skin check: 01/25/2022.- No history of skin cancer.- Areas of concern: None.- Pt is currently on immunosuppressants - had a liver transplant in 06/28/2022. NICKI BAEZ MD [address] [place] [address], [phone], [facility] 07/10/2023 22:07:14 09/09/2024 text/html Spot on R forear m, back, rough patches on L forearmAnnual, negative personal hxLiver transplant t is accompanied by his . CARLOS VIEIRA MD [address] [place] [address], [phone], [facility] 09/09/2024 11:31:15
--- OUTSIDE RECORDS SUMMARY | 2024-09-23 09:38 | XMS_ITS | Encounter Summary ---
Author Organization [place] [address] Care Team Providers Care Soil Conservation Aide Name Role Phone Unavailable Primary Care Provider Unavailabl e Encounter Details Date Type Department Care Team (Latest Contact Info) Description 02/18/2023 External Contact SEP Pulmonology [facility] [address] [address] Roddy Alvarez MD [address] [address] Chronic respiratory failure with hypercapnia [...]
--- OUTSIDE RECORDS SUMMARY | 2024-09-23 09:38 | XMS_ITS ---
Author Organization 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 2022 Encounter for therapeutic drug monitoring 2022 Immunosuppression 02/14/2023 Pleural effusion, not elsewhere classified 01/31 Solitary pulmonary nodule 01/31/2023 Insomnia, unspecified 01/31/2023 Personal history of urinary (tract) infections 1 04/02/2022 Unspecified fracture of left femur, subsequent encounter for closed fracture with routine healing 01/31/2023 BPH (benign prostatic hyperplasia) 12/07/2022 Benign prostatic hyperplasia 12/07/2022 [facility] (current) use of systemic steroids [facility] current use of aspirin 10/17/2022 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 No medications schedul ed. 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
--- OUTSIDE RECORDS SUMMARY | 2024-09-23 09:38 | XMS_ITS | Clinical Summary ---
Author Organization [facility] Address [address] [place] [address] Care Team Providers Care Yeast Pumper Name Role Phone Samaria Price MD Unavailable Jasmin Marshall CNP Unavailable Megan Tamez RN Unavailable Unavailable Junie Aggarwal RN Unavailable Unava ilable Ese Johnson PharmD Unavailable Zaria vailable Carlos Dominguez DO Primary Care Provider [phone] Source Comments This information has been disclosed [...] therelease of HIV test results or diagnoses. [id number] Allergies Active Allergy Reactions Criticality Noted [...] 3.125 MG tabletIndication s:Left Ventricular Dysfunction following OR Take 1 tablet (3.125 mg total) by mouth 2 times a day. 180 tablet 3 024 Active furosemide (LASIX) 20 MG tabletIndication s:Acute on chronic HFrEF (heart failure with reduced ejection fraction) ([facility]) Take 1 tablet (20 mg total) by mouth daily as needed. As needed when you gain 5 lbs or notice swelling 180 tablet 2 024 Active rosuvastatin (CRESTOR) 5 MG tabletIndication s:Coronary artery disease involving [place] coronary artery of [place] heart without angina pectoris,Chest pain, unspecified type,Acute on chronic HFrEF (heart failure with reduced ejection fraction) ([facility]) Take 1 tablet (5 mg total) by mouth daily. 90 tablet 1 024 Active mycophenolate (CELLCEPT) 250 mg capsuleIndicatio ns:Prevention of Liver Transplant Rejection Take 1 capsule (250 mg total) by mouth 2 times a day. 60 capsule 5 09/18/19 25 4:34 PM EDT 025 Active cycloSPORINE modified (NEORAL/GENGRAF) 25 MG capsuleIndicatio ns:S/P liver transplant ([facility]),Immuno suppressive management encounter following liver transplant ([facility]) Take 1 capsule (25 mg total) by mouth 2 times a day. 60 capsule 09/18/19 4:34 PM EDT [address] (NOXAFIL) 100 [...] total) by mouth daily. 30 tablet 5 09/18/19 4:34 PM EDT 025 Active prednisoLONE acetate (PRED [...] 10 025 2024 Discontinued(R efill / Reorder) sacubitriL-valsa rtan (ENTRESTO) 24-26 mg Tab Take [...] specified counseling 04/26/2023 History of falling 02/21/2023 skilled nursing (current) use of anticoagulants 2022 Encounter for therapeutic drug monitoring 2022 Immunosuppression 02/14/2023 Pleural effusion, not elsewhere classified 01/31 Solitary pulmonary nodule 01/31/2023 Insomnia, unspecified 01/31/2023 Personal history of urinary (tract) infections 1 04/02/2022 Unspecified fracture of left femur, subsequent encounter for closed fracture with routine healing 01/31/2023 BPH (benign prostatic hyperplasia) 12/07/2022 Benign prostatic hyperplasia 12/07/2022 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 skilled nursing current use of aspirin 10/17/2022 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 current use of systemic steroids 10/17 [...] transplant recipient 08/09/2022 Coronary artery disease involving [place] coronar y artery 08/09/2022 Assessment & Plan [...] carlos (07/16/23) - RTC 06/21/[address] uRiz scheduled already Essential (primary) hypertension 01/06/2022 HCC [...] Problem Noted Date Diagnosed Date Resolved Date skilled nursing (current) use of aspirin 10/17/2022 06/11/2023 Dysphagia, [...] Type Department Care Team Description 09/02/2024 Telephone [facility] Liver Transplant at [facility] [address] [facility] [address] [place] [phone] Junie Aggarwal, MARCOS Results 08/31/2024 Results Follow-Up [facility] Advanced Heart Failure at [facility] [address] [facility] [address] [place] [address] Beth Crowe DNP B Natriuretic Peptide 08/30/2024 1:00 PM EDT Office Visit [facility] Ophthalmology at [facility] [address] [facility] [address] [place] [phone] Carlos Young MD 08/29/2024 Results Follow-Up [facility] Gastroenterology at [facility] [address] [facility] [address] [place] [phone] Kolton Martinez MD DXA bone density axial skeleton 08/27/2024 Rx Prior Authorization [facility] [address] [place] [address] Margarette Fletcher, RXT 08/27/2024 Orders Only [facility] Advanced Heart Failure at [facility] [address] [facility] [address] [place] [phone] Beth Crowe DNP 08/26/2024 Telephone [facility] I.D.C. at [facility] [address] [facility] [address] [place] [phone] Shalonda Ruiz MD Appointment (Appointment Confirmed - Called patient to reschedule/change 11/07/[address] Corona from Dr. Ruiz, who will be still on service. agreed due to travel from a distant area.) 08/23/2024 Telephone [facility] Endocrinology at [facility] [address] [facility] [address] [place] [phone] Vandana Holden MD Appointment 08/22/2024 Telephone [facility] Liver Transplant at [facility] [address] [facility] [address] [place] [phone] Junie Aggarwal, RN Results 08/21/2024 Results Follow-Up [facility] Advanced Heart Failure at [facility] [address] [facility] [address] [place] [address] Beth Crowe DNP Ferritin, Iron Studies (Iron + TIBC), B Natriuretic Peptide, Transferrin Receptor, Soluble 08/20/2024 1:00 PM EDT [facility] [address] [place] [address] Kolton Martinez MD S/P liver transplant ([facility]); Immunosuppression ([facility]); Iron deficiency; Chronic systolic heart failure ([facility]) 08/20/2024 10:14 AM EDT - 08/20/2024 11:59 PM EDT Hospital Encounter [facility] Radiology [address] [place] [address] Kolton Martinez MD Liver replaced by transplant ([facility]); Immunosuppressive management encounter following liver transplant ([facility]); Encounter for therapeutic drug monitoring; Osteoporosis, unspecified osteoporosis type, unspecified pathological fracture presence; History of steroid therapy Discharge Disposition: Home or Self Care WITHOUT Home Care Services 08/20/2024 Telephone [facility] Liver Transplant at [place] [address] [facility] [address] [place] [address] Junie Aggarwal, RN Results 08/20/2024 Refill [facility] Ophthalmology at [facility] [address] [facility] [address] [place] [address] Zach Treviño MD 08/16/2024 Orders Only [facility] Gastroenterology at [facility] [address] [facility] [address] [place] [address] Enrike Mims MD Biliary stricture (Primary Dx); S/P liver transplant ([facility]) 08/16/2024 Telephone [facility] Gastroenterology at [facility] [address] [facility] [address] [place] [phone] Enrike Mims MD Procedure (/REPEAT ERCP) 08/14/2024 Orders Only [facility] Advanced Heart Failure at [facility] [address] [facility] [address] [place] [address] Beth Crowe DNP 08/14/2024 Telephone [facility] Advanced Heart Failure at [facility] [address] [facility] [address] [place] [address] Beth Crowe DNP Medical Management (Plan of Care Inquiry/Question ) 08/01/2024 12:23 PM EDT - 08/01/2024 11:59 PM EDT Hospital Encounter [facility] MRI [address] [place] [phone] Genet Cha MD Atrial mass Discharge Disposition: Home or Self Care WITHOUT Home Care Services 07/30/2024 Telephone [facility] Liver Transplant at [address] [place] [address] Junie Aggarwal, automatic head sawyer Only 07/26/2024 Orders Only [facility] Liver Transplant at [address] [place] [address] Kolton Martinez MD 07/24/2024 Telephone [facility] Liver Transplant at [address] [place] [address] Junie Aggarwal, automatic head sawyer Only 07/22/2024 Telephone [facility] [address] [place], [place] [phone] Carlin Harris, [facility] Medication Management ([facility]: Transplant Reassessment) 07/18/2024 Refill [facility] Ophthalmology at [address] [place] [address] Amelie Brito, RN 07/08/2024 Telephone [facility] Advanced Heart Failure at [facility] [address] [facility] [address] [place] [address] Beth Crowe DNP Medical Management (Plan of Care Inquiry/Question ) 07/05/2024 Pharmacy Services [facility] [address] [place] [address] Amena Groves, RXT 07/05/2024 Orders Only [facility] Advanced Heart Failure at [facility] [address] [facility] [address] [place] [address] Beth Crowe DNP 07/05/2024 Pharmacy Services [facility] Outpatient Pharmacy at [place] [address] [place] [phone] Barbara Patterson, PharmD 07/05/2024 Telephone [facility] Advanced Heart Failure at [facility] [address] [facility] [address] [place] [phone] Beth Crowe DNP 07/05/2024 Telephone [facility] Advanced Heart Failure at [facility] [address] [facility] [address] [place] [address] Beth Crowe DNP Medical Management (Plan of Care Inquiry/Question ) 07/02/2024 12:30 PM EDT Office Visit [facility] Advanced Heart Failure at [facility] [address] [facility] [address] [place] [phone] Genet Cha MD Albert, Bonnie, DNP Iron deficiency (Primary Dx); Chronic systolic heart failure ([facility]) 07/02/2024 9:58 AM EDT - 07/02/2024 11:59 PM EDT Hospital Encounter [facility] Echocardiography at [facility] [address] [facility] [address] [place] [address] Genet Cha MD Acute on chronic HFrEF (heart failure with reduced ejection fraction) ([facility]) Discharge Disposition: Home or Self Care WITHOUT Home Care Services 06/27/2024 Refill [facility] Ophthalmology at [facility] [address] [facility] [address] [place] [phone] Jas Sierra MD from Last 3 Months Immunizations Immunization Administration Dates Next Due COVID-19, mRNA, Moderna monovalent, age 12+ 01/19,05/27/2020,04/27/2020 Influenza, high-dose, [place]ol[place] valent, preservative-free 01/23/2023,02/27/2022 Influenza, [...] Recorded In the past 12 months has [employer], [employer], oil, or water [employer] threatened to shut off services in your [...] PM EDT Hospital Encounter [facility] ENDOSCOPY [address] [place] [address] Enrike Mims MD [address] [place] [address] 10/10/2024 12:31 PM EDT - 10/10/2024 2:01 PM EDT Surgery [facility] ENDOSCOPY [address] [place] [phone] Enrike Mims MD [address] [place] [address] ERCP Scheduled Procedures Name Priority [...] (Adult) (1 - 1-dose 75+ series) 2024 Immunization: Influenza (MyC caputo) (#1) 2024 02/02/2024, 01/23/2023, 02/27/2022, Additional history exists Thyroid Function/TSH (Re.nooblehart) 01/09/2025 1 , 10/31/2023, 09/25/2023, Additional history exists Renal Function/GFR 08/30/2025 08/30/2024, 0 08/20/2024, 05/27/2024, Additional history exists Immunization: DTaP/Tdap/Td ( 2 - Td or Tdap) 03/21/2026 03/21/2016 Colonoscopy 03/19/2031 03/19/2021 (Perf ormed Elsewhere) Colorectal Cancer Screening (BoardEvals) 03/19/2031 Immunization: Zoster Completed 03/16/2021, 12/09/19 Immunization: Pneumococcal Completed 11/15/2021, Medical Devices Implanted Type Area Technical Product Manager Device Identifier Shelf Expiration Date Model / Serial / Lot Mesh Surgical Phasix Sepra [id number] erate Rectangle L8 In X W4 In Monofilament Resorbable Hernia Repair Intraabdominal Placement - [id number] Implanted:Qty: 1 on 07/01/2022 by Kelechi Bland III, MD at [facility] Main Mesh N/A: Abdomen DAVOL 03/16/2023 [id number] / / [id number] Liver Implanted:Qty: 1 on 06/28/2022 by Kelechi Bland III, MD at [facility] Main Organ N/A: Abdomen [id number] / / Screw Bn 90mm 6.5mm Cnn Asns Ns Lf - [id number] Implanted:Qty: 1 on 02/01/2023 by Zion Ojeda MD at [facility] Main Screw Left: Hip MAGDIEL AltierreCA [id number] / / Screw Bone Asnis Iii Titanium L90 Mm Od6.5 Mm Fully Threaded Cannulated Self Tapping Drilling Sterile - [id number] Implanted:Qty: 2 on 02/01/2023 by Zion Ojeda MD at [facility] Main Screw Left: Hip MAGDIEL Celsius Game StudiosMEDICA [id number] / / Sphere Embolization Embosphere Trisacryl Gelatin 300-500 Um 2 Ml 20 Ml Prefill Saline Syringe Compressible Nonaggregate Sterile Blue - [id number] Implanted:Qty: 1 on 12/23/2022 by Dennis Rey MD at [facility] Main Stent Prostate BIOSPHERE MEDICAL 03/20/2025 [id number] / 3 / [id number] Coil Embl 2cm 2mm Concerto Poly Lac Co Glyc Acd 3d Jennifer Dtch Cmplx Frm Resheathable - S2 Implanted:Qty: 1 on 12/23/2022 by Dennis Rey MD at [facility] Main Stent Rectum COVIDIEN 04/12/2025 PV-2-2-3D / 2 / [id number] Coil Embl 2cm 2mm Concerto Poly Lac Co Glyc Acd 3d Jennifer Dtch Cmplx Frm Resheathable - S2 Implanted:Qty: 1 on 12/23/2022 by Dennis Rey MD at [facility] Main Stent Prostate COVIDIEN 04/12/2025 PV-2-2-3D / 2 / [id number] Stent Cor 18mm 3mm [place] Frntr Rx Strl Lf Implanted:Qty: 1 on 03/21/2023 by Honorio Webber MD at [facility] Main Stent Right: Coronary [employer] 12/12/2025 [id number] / / [id number] Description:MID RCA Stent Cor 38mm 2.5mm [place] Frntr Rx Strl Lf Implanted:Qty: 1 on 03/21/2023 by Honorio Webber MD at [facility] Main Stent Left: Coronary [employer] 08/28/2025 [id number] / / [id number] Description:MID LAD Cor Stnt 3.5mm 48mm Sng Xd Everolimus Sys Implanted:Qty: 1 on 03/21/2023 by Honorio Webber MD at [facility] Main Stent Left: Coronary BS 10/30/2024 [id number] / / [id number] Description:prox LAD Stent Cor 38mm 3mm Jose Frntr Rx Strl Lf Implanted:Qty: 1 on 03/21/2023 by Honorio Webber MD at [facility] Main Stent Right: Coronary [employer] 09/02/2025 [id number] / / [id number] Description:MID RCA Stent 10mm Santiago 6cm Shrt Callie Sewell [place] Viabil Eprsth 200cm Escp - [id number] Implanted:Qty: 1 on 04/05/2024 by Enrike Mims MD at [facility] Main Stent N/A: Bile Duct CONMED 01/10/2027 [id number] / / Washer Orthopedic Asnis Iii Titanium Large Nonsterile Disposable 6.5/8 Mm Cannulated Screw - [id number] Implanted:Qty: 3 on 02/01/2023 by Zion Ojeda MD at [facility] Main Washer Left: Hip MAGDIEL HOWMEDICA [id number] / / Explanted Type Area Technical Product Manager Device Identifier Shelf Expiration Date Model / Serial / Lot Stent Santiago 7fr 7cm Ddnl Bnd Dlv Sys Rx Brb To Brb Preld Advanix Pls 3.2mm Wrk nl - [id number] Implanted:Qty: 1 on 05/16/2023 by Enrike Mims MD at [facility] Main Explanted:Qty: 1 on 09/25/2023 by Enrike Mims MD at [facility] Main Stent Property [facility] 04/04/2025 [id number] / / [id number] Stent Pancreatic Zimmon Polyethylene Pigtail Curve L7 Cm Od5 Fr Taper Tip Sterile Disposable Blue - [id number] Implanted:Qty: 1 on 01/09/2023 by Enrike Mims MD at [facility] Main Explanted:Qty: 1 on 09/25/2023 by Enrike Mims MD at [facility] Main Stent [facility] 08/11/2025 [id number] / / [id number] Stent Santiago 10fr 7cm Ddnl Bnd Dlv Sys Radopq Preld Rx Advanix Pls Disp Acpt .035in Gw - [id number] Implanted:Qty: 1 on 09/25/2023 by Enrike Mims MD at [facility] Main Explanted:Qty: 1 on 12/25/2023 at [facility] Main Stent N/A: Bile Duct [employer] 06/19/2024 [id number] / / Stent Santiago 10fr 7cm Ddnl Bnd Temp Rx Advanix Pls Disp Acpt .035in Gw - [id number] Implanted:Qty: 1 on 12/25/2023 by Enrike Mims MD at [facility] Main Explanted:Qty: 1 on 04/05/2024 by Enrike Mims MD at [facility] Main Stent N/A: Bile Duct [employer] 01/23/2025 [id number] / / [id number] Stent Santiago 10fr 7cm Ddnl Bnd Temp Rx Advanix Pls Disp Acpt .035in Gw - [id number] Implanted:Qty: 1 on 12/25/2023 by Enrike Mims MD at [facility] Main Explanted:Qty: 1 on 04/05/2024 by Enrike Mims MD at [facility] Main Stent N/A: Bile Duct [employer] 01/23/2025 [id number] / / [id number] Device Closure Perclose Proglide Od6 Fr Vascular Suture Mediate Knot Push Sterile Disposable Explanted:Qty: 2 on 03/21/2023 at [facility] Main [place]VILLA VASCULAR [id number] / / Procedures Procedure Name Priority Date/Time Associated Diagnosis Comments COLOR FUNDUS PHOTOGRAPHY - OU - BOTH EYES Routine 08/30/2024 12:16 PM EDT Anatomical narrow angle OCT RETINA/MACULA-BOTH EYES Routine 08/30/2024 12:10 PM EDT Anatomical narrow angle B NATRIURETIC PEPTIDE Routine 08/30/2024 11:51 AM EDT Chronic systolic heart failure (CMS-HCC) HEPATIC FUNCTION PANEL Routine 08/30/2024 11:51 AM EDT S/P liver transplant (CMS-HCC) RENAL FUNCTION PANEL W/EGFR Routine 08/30/2024 11:51 AM EDT S/P liver transplant (CMS-HCC) CBC Routine 08/30/2024 11:51 AM EDT S/P liver transplant (CMS-HCC) DIFFERENTIAL Routine 08/30/2024 11:51 AM EDT S/P liver transplant (CMS-HCC) CYCLOSPORINE LEVEL Routine 08/30/2024 11 :51 AM EDT S/P liver transplant (CMS-HCC) Immunosuppression ([facility]) DXA BONE DENSITY AXIAL SKELETON Routine 08/20/2024 1:03 PM EDT Liver replaced by transplant ([facility]) Immunosuppressive management encounter following liver transplant ([facility]) Encounter for therapeutic drug monitoring Osteoporosis, unspecified osteoporosis type, unspecified pathological fracture presence History of steroid therapy IRON STUDIES Routine 08/20/2024 10:26 AM EDT Iron deficiency FERRITIN Routine 08/20/2024 10:26 AM EDT Iron deficiency CYCLOSPORINE LEVEL Routine 08/20/2024 10 :26 AM EDT S/P liver transplant ([facility]) Immunosuppression ([facility]) B NATRIURETIC PEPTIDE Routine 08/20/2024 9:59 AM EDT Chronic systolic heart failure ([facility]) TRANSFERRIN RECEPTOR, SOLUBLE Routine 08/20/2024 9:59 AM EDT Iron deficiency HEPATIC FUNCTION PANEL Routine 08/20/2024 9:59 AM EDT S/P liver transplant ([facility]) RENAL FUNCTION PANEL W/EGFR Routine 08/20/2024 9:59 AM EDT S/P liver transplant ([facility]) CBC Routine 08/20/2024 9:59 AM EDT S/P liver transplant (CMS-HCC) DIFFERENTIAL Routine 08/20/2024 9:59 AM EDT S/P liver transplant (CMS-HCC) MRI CARDIAC W AND WO CONTRAST Routine [...] HFrEF (heart failure with reduced ejection fraction) ([facility]) TSH Routine 01/10/2024 1:32 PM EDT Hypothyroidism, unspecified type from Last 3 Months or Most Recently Relevant to Health Maintenance Results * Color Fundus Photography - OU - Both Eyes (08/30/2024 12:16 PM EDT) 08/30/2024 Narrative [facility] - 08/30/2024 3:17 PM EDT [Fundus exam] us Carlos Young MD OPHTHALMOLOGY SERVICES ORDERABLE S Final Result [facility] * OCT Retina/Macula- Both Eyes (08/30/2024 12:10 PM EDT) 08/30/2024 Narrative [facility] - 08/30/2024 3:17 PM EDT Date of Test/Procedure Date: 08/30/2024. Notes Good foveal contour OS Carlos Young MD OPHTHALMOLOGY SERVICES ORDERABLE S Final Result [facility] * Hepatic Function Panel (08/30/2024 11:51 AM EDT) Only the most recent of2 resultswithin the time period is included. Total Bilirubin 0.9 0.0 - 1.5 mg/dL 08/30/2024 2:47 PM EDT [facility] Bilirubin, Direct 0.21 0.00 - 0.40 mg/dL 08/30/2024 2:47 PM EDT [facility] Comment:HEMOLYSIS EVIDENT. D IRECT BILIRUBIN CONCENTRATIONS MAY BE FALSELY DECREASED IN THE PRESENCE OF HEMOLYSIS. INTERPRET WITH CAUTION. AST 20 13 - 39 U/L 08/30/2024 2:47 PM EDT [facility] ALT 8 7 - 52 U/L 08/30/2024 2:47 PM EDT [facility] Alkaline Phosphatase 86 36 - 125 U/L 08/30/2024 2:47 PM EDT [facility] Total Protein 6.6 6.4 - 8.9 g/dL 08/30/2024 2:47 PM EDT [facility] Albumin 3.9 3.5 - 5.7 g/dL 08/30/2024 2:47 PM EDT [facility] Bilirubin, Indirect 0.69 0.00 - 1.10 mg/dL 08/30/2024 2:47 PM EDT [facility] Plasma 08/30/2024 11:5 1 AM EDT 08/30/2024 2:16 PM EDT Narrative [facility] - 08/30/2024 2:47 PM EDT Standing liver transplant labs. Please fax results to [phone]. Call critical results to [phone]. Kolton Martinez MD LAB BLOOD ORDERABLES Kalli l Result [facility] [address] [place] [address], [facility] * (ABNORMAL) Renal Function Panel w/EGFR (08/30/2024 11:51 AM EDT) Only the most recent of2 resultswithin the time period is included. Sodium 136 133 - 146 mmol/L 08/30/2024 2:47 PM EDT [facility] Potassium 4.4 3.5 - 5.3 mmol/L 08/30/2024 2:47 PM EDT [facility] Comment:Hemolysis Present: R esults may be influenced artificially. Recommend recollection as clinically indicated. Chloride 101 98 - 110 mmol/L 08/30/2024 2:47 PM EDT [facility] CO2 25 21 - 33 mmol/L 08/30/2024 2:47 PM EDT [facility] Anion Gap 10 3 - 16 mmol/L 08/30/2024 2:47 PM EDT [facility] BUN 29(H) 7 - 25 mg/dL 08/30/2024 2:47 PM EDT [facility] Creatinine 1.09 0.60 - 1.30 mg/dL 08/30/2024 2:47 PM EDT [facility] Glucose 95 70 - 100 mg/dL 08/30/2024 2:47 PM EDT [facility] Calcium 9.1 8.6 - 10.3 mg/dL 08/30/2024 2:47 PM EDT [facility] Phosphorus 2.9 2.1 - 4.5 mg/dL 08/30/2024 2:47 PM EDT [facility] Comment:HEMOLYSIS EVIDENT. R ESULTS MAY BE INFLUENCED. Albumin 3.9 3.5 - 5.7 g/dL 08/30/2024 2:47 PM EDT [facility] Osmolality, Calculated 288 278 - 305 mOsm/kg 08/30/2024 2:47 PM EDT [facility] EGFR 71 08/30/2024 2:47 PM EDT [facility] Comment:As of 2021, the estimated [...] AM EDT 08/30/2024 2:16 PM EDT Narrative [facility] - 08/30/2024 2:47 PM EDT Standing liver transplant labs. Please fax results to [phone]. Call critical results to [phone]. Kolton Martinez MD LAB BLOOD ORDERABLES Kalli grider Result [facility] [address] * (ABNORMAL) Cyclosporine level (08/30/2024 11:51 AM EDT) Only the most recent of2 resultswithin the time period is included. Cyclosporine, LC/MS 350.7(H) 100.0 - 350.0 ng/mL 08/31/2024 3:24 PM EDT [facility] Comment:Performed via liquid chromatography tandem mass spectrometry. Detection limit: 20 ng/mL. Individual target concentrations may vary due to target organ and time after transplant. This test has been developed and its performance characteristics determined by [facility] which is certified under the [...] AM EDT 08/30/2024 2:20 PM EDT Narrative [facility] - 08/31/2024 3:24 PM EDT Standing liver transplant labs. Please fax results to [phone]. Call critical results to [phone]. us Kolton Martinez MD LAB BLOOD ORDERABLES Kalli grider Result [facility] [address] [place] [address], [facility] * Differential (08/30/2024 11:51 AM EDT) Only the most recent of2 resultswithin the time period is included. Neutrophils Relative 75.5 40.0 - 80.0 % 08/30/2024 2:34 PM EDT [facility] Lymphocytes Relative 17.6 15.0 - 45.0 % 08/30/2024 2:34 PM EDT [facility] Monocytes Relative 5.4 0.0 - 12.0 % 08/30/2024 2:34 PM EDT [facility] Eosinophils Relative 1.1 0.0 - 8.0 % 08/30/2024 2:34 PM EDT [facility] Basophils Relative 0.4 0.0 - 1.0 % 08/30/2024 2:34 PM EDT [facility] nRBC 0 0 - 0 /100 WBC 08/30/2024 2:34 PM EDT [facility] Neutrophils Absolute 6,116 1,520 - 8,640 /uL 08/30/2024 2:34 PM EDT [facility] Lymphocytes Absolute 1,426 570 - 4,860 /uL 08/30/2024 2:34 PM EDT [facility] Monocytes Absolute 437 0 - 1,296 /uL 08/30/2024 2:34 PM EDT [facility] Eosinophils Absolute 89 0 - 864 /uL 08/30/2024 2:34 PM EDT [facility] Basophils Absolute 32 0 - 108 /uL 08/30/2024 2:34 PM EDT [facility] Whole Blood 08/30/2024 11:5 1 AM EDT 08/30/2024 2:16 PM EDT Narrative [facility] - 08/30/2024 2:34 PM EDT Standing liver transplant labs. Please fax results to [phone]. Call critical results to [phone]. Kolton Martinez MD LAB BLOOD ORDERABLES Kalli marni Result [facility] [address] [place] [address], [facility] * (ABNORMAL) CBC (08/30/2024 11:51 AM EDT) Only the most recent of2 resultswithin the time period is included. WBC 8.1 3.8 - 10.8 10E3/uL 08/30/2024 2:34 PM EDT [facility] RBC 4.09(L) 4.20 - 5.80 10E6/uL 08/30/2024 2:34 PM EDT [facility] Hemoglobin 13.1(L) 13.2 - 17.1 g/dL 08/30/2024 2:34 PM EDT [facility] Hematocrit 38.8 38.5 - 50.0 % 08/30/2024 2:34 PM EDT [facility] MCV 94.9 80.0 - 100.0 fL 08/30/2024 2:34 PM EDT [facility] MCH 32.0 27.0 - 33.0 pg 08/30/2024 2:34 PM EDT [facility] MCHC 33.7 32.0 - 36.0 g/dL 08/30/2024 2:34 PM EDT [facility] RDW 15.1(H) 11.0 - 15.0 % 08/30/2024 2:34 PM EDT [facility] Platelets 280 140 - 400 10E3/uL 08/30/2024 2:34 PM EDT [facility] MPV 9.3 7.5 - 11.5 fL 08/30/2024 2:34 PM EDT [facility] Whole Blood 08/30/2024 11:5 1 AM EDT 08/30/2024 2:16 PM EDT Narrative [facility] - 08/30/2024 2:34 PM EDT Standing liver transplant labs. Please fax results to [phone]. Call critical results to [phone]. Kolton Martinez MD LAB BLOOD ORDERABLES Kalli l Result Performing Organization Address City/[facility]/ZIP Co de Phone Number [facility] [address] [facility] * (ABNORMAL) B Natriuretic Peptide (08/30/2024 11:51 AM EDT) Only the most recent of2 resultswithin the time period is included. BNP 966(H) 0 - 100 pg/mL 08/30/2024 2:45 PM EDT [facility] Comment: BNP may be increased in the presence of sacubitril/valsartan (Entresto). Please interpret accordingly. Plasma 08/30/2024 11:5 1 AM EDT 08/30/2024 2:16 PM EDT Narrative [facility] - 08/30/2024 2:45 PM EDT The presence of high concentrations of biotin may cause falsely lowered BNP results. Biotin interference may be seen if an individual is taking >5 mg biotin per day. Interpret BNP results in the context of the patient's clinical presentation. Beth Crowe DNP LAB BLOOD ORDERABLES Final Res ult Performing Organization Address [facility]/ZIP Co de Phone Number [facility] [address] [facility]. [address] * DXA bone density axial skeleton (08/20/2024 [...] mineral density analysis was performed on a [employer] scanner. ARTIFACTS: There is lumbar spondylosis which [...] mineral density analysis was performed on a NPC III [employer]. ARTIFACTS: There is lumbar spondylosis which [...] - 212 ug/dL 08/20/2024 11:03 AM EDT [facility] % Iron Saturation 17.3 15.0 - 55.0 % 08/20/2024 11:03 AM EDT [facility] TIBC 342 261 - 462 ug/dL 08/20/2024 11:03 AM EDT [facility] Serum 08/20/2024 10:2 6 AM EDT 08/20/2024 10:26 AM EDT [facility] BLOOD ORDERABLES Final Res ult [facility] [address] [facility]. [address] * Ferritin (08/20/2024 10:26 AM EDT) Ferritin 150.2 23.9 - 336.2 ng/mL 08/20/2024 11:17 AM EDT [facility] Serum 08/20/2024 10:2 6 AM EDT 08/20/2024 10:26 AM EDT [facility] BLOOD ORDERABLES Final Res ult [facility] [address] [facility]. [address] * Transferrin Receptor, Soluble (08/20/2024 9:59 AM EDT) Transferrin Receptor 14.9 12.2 - 27.3 nmol/L 08/22/2024 6:20 AM EDT [facility] Serum 08/20/2024 9:59 AM EDT 08/22/2024 7:06 AM EDT Narrative [facility] - 08/22/2024 7:06 AM EDT PERFORMED AT: [facility] [id number] DRAMA THERAPIST: Coral Aguilera MD PHONE: [phone] us Beth Crowe [facility] LAB BLOOD ORDERABLES Final Res ult [facility] [address] [place] [address], [facility] * MRI Cardiac W WO contrast (08/01/2024 [...] chest CT. Thank you for referring to [facility] Cardiac Magnetic Resonance Imaging. Report Verified by: Goyo Campos MD at 08/08/2024 7:58 AM EDT Narrative 08/08/2024 7:58 AM EDT Exam: MRI CARDIAC W AND WO CONTRAST Comparison: CT chest dated 05/09/2023 Contrast: 15 mL of GADOBUTROL 1 MMOL/ML INTRAVENOUS SYRINGE ([facility]) administered intravenously Indication: atrial mass; Atrial [...] fat saturation Scanner Giana: 1.5T Scanner Vendor: CEDU Exam Quality: excellent Findings: QUALITATIVE IMPRESSIONS: Left [...] mL of GADOBUTROL 1 MMOL/ML INTRAVENOUS SYRINGE ([facility])administered intravenously Indication: atrial mass; Atrial mass [...] fat saturation Scanner Giana: 1.5T Scanner Vendor: CEDU Exam Quality: excellent Findings: QUALITATIVE IMPRESSIONS: Left [...] chest CT. Thank you for referring to [facility] Cardiac Magnetic Resonance Imaging. Report Verified by: Goyo Campos MD at 08/08/2024 7:58 AM EDT Genet Cha MD IMG MRI ORDERABLES Final Res ult * POC eGFR (08/01/2024 1:34 PM EDT) [facility] POC [id number] 08/01/2024 1:41 PM EDT [facility] Comment:As of 2021, the estimated [...] MD LAB BLOOD ORDERABLES Final R esult [facility] [address] [place] [address], [facility] * POC Sample Type (08/01/2024 1:34 PM EDT) [facility] POC Sample Type Unspecified 08/01/2024 1:41 PM EDT [facility] Blood, Arterial 08/01/2024 1 :34 PM EDT 08/01/2024 1:41 PM EDT Genet Cha MD POINT OF CARE TEST ORDERABLE S Final Result Performing Organization Address City/[facility]/ZIP Co de Phone Number [facility] [address]. [address] * (ABNORMAL) POC hematocrit (08/01/2024 1:34 PM EDT) POC Hematocrit 37.0(L) 40 - 52 % 08/01/2024 1:41 PM EDT [facility] Blood, Arterial 08/01/2024 1 :34 PM EDT 08/01/2024 1:41 PM EDT Genet Cha MD POINT OF CARE TEST ORDERABLE S Final Result Performing Organization Address City/[facility] Co de Phone Number [facility] [address] [facility]. [address] * POC creatinine (08/01/2024 1:34 PM EDT) POC Creatinine 1.06 0.60 - 1.30 mg/dL 08/01/2024 1:41 PM EDT [facility] Blood, Arterial 08/01/2024 1 :34 PM EDT 08/01/2024 1:41 PM EDT Genet Cha MD POINT OF CARE TEST ORDERABLE S Final Result Performing Organization Address City/[facility] Co de Phone Number [facility] [address] [facility]. [address] * (ABNORMAL) POC Hemoglobin (08/01/2024 1:34 PM EDT) POC Hemoglobin 12.7(L) 14.0 - 18.0 g/dL 08/01/2024 1:41 PM EDT [facility] Blood, Arterial 08/01/2024 1 :34 PM EDT 08/01/2024 1:41 PM EDT us Genet Cha MD POINT OF CARE TEST ORDERABLE S Final Result [facility] [address] [place] [address], [facility] * ECHO COMPLETE W/ STRAIN (07/02/2024 10:43 AM EDT) Anatomical Region Laterality Modality Chest Ultrasound 07/02/2024 10:1 7 AM EDT Narrative 07/05/2024 11:12 AM EDT * [facility] - Echocardiology Lab* [address] [facility], [address] [place], [place] [address] Transthoracic Echocardiogram Patient: René Cornejo Room: echolab Height: 69in MR Number: [id number] : 1950 Weight: 110lb Account: [id number] Gender: M BP: Study Date: 07/02/2024 Age: 74 BSA: 1.54m^2 Referring physician: Interpreting physician: Ann Ding MD PERFORMING [facility]Ann Ding FANCY SEWER Jovana Wright MD ATTENDING Genet Cha MD Procedure:TRANSTHORACIC ECHO (TTE) Order: Accession COMPLETE Number:[id number] Indications: Acute on chronic heart failure with [...] ml 21 - 61 51 EF (L) -[id number] % 52 - 72 39 SV 71 [...] Reviewed and confirmed by Ann Ding MD [id number] Procedure Note Ann Ding MD - 07/05/2024 * [facility] - EchocardiologyLab* [address], [place] [address] Transthoracic Echocardiogram Patient: René Cornejo Room: echolab Height: 69in MR Number: [id number] : 1950 Weight:110lb Account: [id number] Gender: M BP: Study Date: 07/02/2024 Age: 74 BSA:1.54m^2 Referring physician: Interpreting physician: Ann Ding MD PERFORMING [facility] Ding FANCY SEWER Jovana Wright MD ATTENDING Genet Cha MD Procedure:TRANSTHORACIC ECHO (TTE) Order: Accession COMPLETE Number:[id number] Indications: Acute on chronic heart failure with [...] ml 21 - 61 51 EF (L) -[id number] % 52 - 72 39 SV 71 [...] Reviewed and confirmed by Ann Ding MD [id number] Genet Cha MD CV ECHO ORDERABLES Final Res ult * TSH (Thyroid Stimulating Hormone) (01/10/2024 1:32 PM EDT) TSH 1.99 0.45 - 4.12 uIU/mL 01/10/2024 2:15 PM EDT [facility] Serum 01/10/2024 1:32 PM EDT 01/10/2024 1:32 PM EDT us Vandana Holden MD LAB BLOOD ORDERABLES Final Resul t [facility] [address] [place] [address], [facility] from Last 3 Months or Most Recently Relevant to Health Maintenance Insurance MEDICARE A AND B AAR MEDICARE A AND B AAR Advance Directives For more information, please contact: [phone] * Full Code (Latest Code Status on [...] 3:50 PM 09/30/2022 10:43 PM Care Teams Yeast Pumper Relationship Specialty Start Date End Date Carlos Dominguez DO [address], [place] [address] [place] [address] PCP - General Internal Medicine 04/05/24 Samaria Price MD [facility] Hematology/[place] [id number] Medical Oncologist [facility] Medical Oncology 10/20/21 Jasmin Marshall, FIRE FIGHTER [employer] [address] [place] [address] Hematology/[place] [phone] Nurse Practitioner [facility] Hematology and Oncology 10/20/21 Megan Tamez, MARCOS Nurse Clinician Medical Oncology 10/20/21 Junie Aggarwal, MARCOS Txp Post Coordinator Rim Fire Priming Tool Setter 10/14/22 Ese Johnson, NahunD Pharmacist Pharmacist 10/17/22
--- OUTSIDE RECORDS SUMMARY | 2024-09-23 09:38 | XMS_ITS | Clinical Summary ---
Author Organization [facility] Address [facility] MANE Gonsalves [address] Phone Care Team Providers Care Skid Road Worker Name Role Phone Unavailable Primary Care Provider [...] - 1-dose 75+ series) 2024 Influenza Vaccine (#1) 2024 3, 02/27/2022, 01/16/2019 DTaP/TDaP/Td (2 - Td or [...] SUPPLEMENTAL MEDICARE IN PART A AND B [facility] SUPPLE[place]AL MEDICARE [place] PART A [place] B [place]IC[place] [address]
--- OUTSIDE RECORDS SUMMARY | 2024-09-23 09:38 | XMS_ITS ---
Author Organization [facility] Address [address] [place] [address] Care Team Providers Care Windows Security Analyst Name Role Phone Samaria Price MD Unavailable Jasmin Marshall CONCRETE BUCKET LOADER Unavailable [phone] Megan Tamez RN Unavailable Unavailable Junie Aggarwal RN Unavailable Unava ilable Ese Johnson PharmD Unavailable Zaria vailable Carlos Dominguez DO Primary Care Provider [phone] Dialysis Access Sites Type Status Location Placement [...] 08/30/2024 11:51 AM EDT S/P liver transplant ([facility]) RENAL FUNCTION PANEL W/EGFR Routine 08/30/2024 11:51 AM EDT S/P liver transplant (CMS-HCC) CBC Routine 08/30/2024 11:51 AM EDT S/P liver transplant (CMS-HCC) DIFFERENTIAL Routine 08/30/2024 11:51 AM EDT S/P liver transplant (CMS-HCC) CYCLOSPORINE LEVEL Routine 08/30/2024 11 :51 AM EDT S/P liver transplant (CMS-HCC) Immunosuppression ([facility]) DXA BONE DENSITY AXIAL SKELETON Routine 08/20/2024 1:03 PM EDT Liver replaced by transplant ([facility]) Immunosuppressive management encounter following liver transplant ([facility]) Encounter for therapeutic drug monitoring Osteoporosis, unspecified osteoporosis type, unspecified pathological fracture presence History of steroid therapy IRON STUDIES Routine 08/20/2024 10:26 AM EDT Iron deficiency FERRITIN Routine 08/20/2024 10:26 AM EDT Iron deficiency CYCLOSPORINE LEVEL Routine 08/20/2024 10 :26 AM EDT S/P liver transplant ([facility]) Immunosuppression ([facility]) B NATRIURETIC PEPTIDE Routine 08/20/2024 9:59 AM EDT Chronic systolic heart failure ([facility]) TRANSFERRIN RECEPTOR, SOLUBLE Routine 08/20/2024 9:59 AM EDT Iron deficiency HEPATIC FUNCTION PANEL Routine 08/20/2024 9:59 AM EDT S/P liver transplant (CMS-HCC) RENAL FUNCTION PANEL W/EGFR Routine 08/20/2024 9:59 AM EDT S/P liver transplant ([facility]) CBC Routine 08/20/2024 9:59 AM EDT S/P liver transplant ([facility]) DIFFERENTIAL Routine 08/20/2024 9:59 AM EDT S/P liver transplant ([facility]) MRI CARDIAC W AND WO CONTRAST Routine [...] HFrEF (heart failure with reduced ejection fraction) ([facility]) TSH Routine 01/10/2024 1:32 PM EDT Hypothyroidism, [...] 3.125 MG tabletIndication s:Left Ventricular Dysfunction following SC Take 1 tablet (3.125 mg total) by mouth 2 times a day. 180 tablet 3 024 Active furosemide (LASIX) 20 MG tabletIndication s:Acute on chronic HFrEF (heart failure with reduced ejection fraction) ([facility]) Take 1 tablet (20 mg total) by mouth daily as needed. 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 90 tablet 1 024 Active mycophenolate (CELLCEPT) 250 mg capsuleIndicatio ns:Prevention of Liver Transplant Rejection Take 1 capsule (250 mg total) by mouth 2 times a day. 60 capsule 5 09/18/19 4:34 PM EDT 025 Active cycloSPORINE modified (NEORAL/GENGRAF) 25 MG capsuleIndicatio ns:S/P liver transplant (CMS-HCC),Immuno suppressive management encounter following liver transplant (CMS-HCC) Take 1 capsule (25 mg total) by mouth 2 times a day. 60 capsule 5 09/18/19 4:34 PM EDT [address] (NOXAFIL) 100 mg TbEC Take 3 tablets (300 mg total) by mouth daily with breakfast. 90 tablet 5 025 2024 Active levothyroxine (SYNTHROID) 88 MCG [...] specified counseling 04/26/2023 History of falling 02/21/2023 detention (current) use of anticoagulants 2022 Encounter for therapeutic drug monitoring 2022 Immunosuppression 02/14/2023 Pleural effusion, not elsewhere classified 01/31 Solitary pulmonary nodule 01/31/2023 Insomnia, unspecified 01/31/2023 Personal history of urinary (tract) infections 1 04/02/2022 Unspecified fracture of left femur, subsequent encounter for closed fracture with routine healing 01/31/2023 BPH (benign prostatic hyperplasia) 12/07/2022 Benign prostatic hyperplasia 12/07/2022 salvage determiner (current) use of systemic steroids detention current use of aspirin 10/17/2022 salvage determiner current use of systemic steroids 10/17 Hemiplga [...] transplant recipient 08/09/2022 Coronary artery disease involving washoe coronar y artery 08/09/2022 Assessment & Plan [...] the past 12 months has th e wunderloop, gas, oil, or water [employer] threatened to shut off services in your [...] ORDERABLE S Final Result Performing Organization Address [facility] Co de Phone Number [facility] * OCT Retina/Macula- Both Eyes (08/30/2024 12:10 PM EDT) 08/30/2024 Narrative [facility] - 08/30/2024 3:17 PM EDT Date of Test/Procedure Date: 08/30/2024. Notes Good foveal contour OS Carlos Young MD OPHTHALMOLOGY SERVICES ORDERABLE S Final Result Performing Organization Address [facility] de Phone Number [facility] * Hepatic Function [...] - 125 U/L 08/30/2024 2:47 PM EDT [facility] Total Protein 6.6 6.4 - 8.9 g/dL 08/30/2024 2:47 PM EDT [facility] Albumin 3.9 3.5 - 5.7 g/dL 08/30/2024 2:47 PM EDT [facility] Bilirubin, Indirect 0.69 0.00 - 1.10 mg/dL 08/30/2024 2:47 PM EDT [facility] Plasma 08/30/2024 11:5 1 AM EDT 08/30/2024 2:16 PM EDT Narrative [facility] - 08/30/2024 2:47 PM EDT Standing liver transplant labs. Please fax results to [phone]. Call critical results to [phone]. us Kolton Martinez MD LAB BLOOD ORDERABLES Kalli grider Result [facility] [address] * (ABNORMAL) Renal Function Panel w/EGFR (08/30/2024 11:51 AM EDT) Only the most recent of2 resultswithin the time period is included. Sodium 136 133 - 146 mmol/L 08/30/2024 2:47 PM EDT [facility] Potassium 4.4 3.5 - 5.3 mmol/L 08/30/2024 2:47 PM EDT [facility] Comment:Hemolysis Present: R esults may be influenced artificially. Recommend recollection as clinically indicated. Chloride 101 98 - 110 mmol/L 08/30/2024 2:47 PM EDT [facility] CO2 25 21 - 33 mmol/L 08/30/2024 2:47 PM EDT [facility] Anion Gap 10 3 - 16 mmol/L 08/30/2024 2:47 PM EDT [facility] BUN 29(H) 7 - 25 mg/dL 08/30/2024 2:47 PM EDT [facility] Creatinine 1.09 0.60 - 1.30 mg/dL 08/30/2024 2:47 PM EDT [facility] Glucose 95 70 - 100 mg/dL 08/30/2024 2:47 PM EDT [facility] Calcium 9.1 8.6 - 10.3 mg/dL 08/30/2024 2:47 PM EDT [facility] Phosphorus 2.9 2.1 - 4.5 mg/dL 08/30/2024 2:47 PM EDT [facility] Comment:HEMOLYSIS EVIDENT. R ESULTS MAY BE INFLUENCED. Albumin 3.9 3.5 - 5.7 g/dL 08/30/2024 2:47 PM EDT [facility] Osmolality, Calculated 288 278 - 305 mOsm/kg 08/30/2024 2:47 PM EDT [facility] EGFR 71 08/30/2024 2:47 PM EDT [facility] Comment:As of 2021, the estimated [...] AM EDT 08/30/2024 2:16 PM EDT Narrative [facility] - 08/30/2024 2:47 PM EDT Standing liver transplant labs. Please fax results to [phone]. Call critical results to [phone]. us Kolton Martinez MD LAB BLOOD ORDERABLES Kalli grider Result [facility] [address] [facility] [place] [address], [facility] * (ABNORMAL) Cyclosporine level (08/30/2024 11:51 AM EDT) Only the most recent of2 resultswithin the time period is included. Cyclosporine, LC/MS 350.7(H) 100.0 - 350.0 ng/mL 08/31/2024 3:24 PM EDT [facility] Comment:Performed via liquid chromatography tandem mass spectrometry. Detection limit: 20 ng/mL. Individual target concentrations may vary due to target organ and time after transplant. This test has been developed and its performance characteristics determined by [facility] which is certified under the Clinical [...] 1 AM EDT 08/30/2024 2:20 PM EDT [facility] - 08/31/2024 3:24 PM EDT Standing liver transplant labs. Please fax results to [phone]. Call critical results to [phone]. Kolton Martinez MD LAB BLOOD ORDERABLES Kalli grider Result [facility] [address] [id number], [facility] * Differential (08/30/2024 11:51 AM EDT) Only the most recent of2 resultswithin the time period is included. Neutrophils Relative 75.5 40.0 - 80.0 % 08/30/2024 2:34 PM EDT [facility] Lymphocytes Relative 17.6 15.0 - 45.0 % 08/30/2024 2:34 PM EDT [facility] Monocytes Relative 5.4 0.0 - 12.0 % 08/30/2024 2:34 PM EDT [facility] Eosinophils Relative 1.1 0.0 - 8.0 % 08/30/2024 2:34 PM EDT [facility] Basophils Relative 0.4 0.0 - 1.0 % 08/30/2024 2:34 PM EDT [facility] nRBC 0 0 - 0 /100 WBC 08/30/2024 2:34 PM EDT [facility] Neutrophils Absolute 6,116 1,520 - 8,640 /uL 08/30/2024 2:34 PM EDT [facility] Lymphocytes Absolute 1,426 570 - 4,860 /uL 08/30/2024 2:34 PM EDT [facility] Monocytes Absolute 437 0 - 1,296 /uL 08/30/2024 2:34 PM EDT [facility] Eosinophils Absolute 89 0 - 864 /uL 08/30/2024 2:34 PM EDT [facility] Basophils Absolute 32 0 - 108 /uL 08/30/2024 2:34 PM EDT [facility] Whole Blood 08/30/2024 11:5 1 AM EDT 08/30/2024 2:16 PM EDT Narrative [facility] - 08/30/2024 2:34 PM EDT Standing liver transplant labs. Please fax results to [phone]. Call critical results to [phone]. Kolton Martinez MD LAB BLOOD ORDERABLES Kalli grider Result [facility] [address] * (ABNORMAL) CBC (08/30/2024 11:51 AM EDT) Only the most recent of2 resultswithin the time period is included. WBC 8.1 3.8 - 10.8 10E3/uL 08/30/2024 2:34 PM EDT [facility] RBC 4.09(L) 4.20 - 5.80 10E6/uL 08/30/2024 2:34 PM EDT [facility] Hemoglobin 13.1(L) 13.2 - 17.1 g/dL 08/30/2024 2:34 PM EDT [facility] Hematocrit 38.8 38.5 - 50.0 % 08/30/2024 2:34 PM EDT [facility] MCV 94.9 80.0 - 100.0 fL 08/30/2024 2:34 PM EDT [facility] MCH 32.0 27.0 - 33.0 pg 08/30/2024 2:34 PM EDT [facility] MCHC 33.7 32.0 - 36.0 g/dL 08/30/2024 2:34 PM EDT [facility] RDW 15.1(H) 11.0 - 15.0 % 08/30/2024 2:34 PM EDT [facility] Platelets 280 140 - 400 10E3/uL 08/30/2024 2:34 PM EDT [facility] MPV 9.3 7.5 - 11.5 fL 08/30/2024 2:34 PM EDT [facility] Whole Blood 08/30/2024 11:5 1 AM EDT 08/30/2024 2:16 PM EDT Narrative [facility] - 08/30/2024 2:34 PM EDT Standing liver transplant labs. Please fax results to [phone]. Call critical results to [phone]. Kolton Martinez MD LAB BLOOD ORDERABLES Kalli l Result [facility] [address] * (ABNORMAL) B Natriuretic Peptide (08/30/2024 11:51 AM EDT) Only the most recent of2 resultswithin the time period is included. BNP 966(H) 0 - 100 pg/mL 08/30/2024 2:45 PM EDT [facility] Comment: BNP may be increased in the presence of sacubitril/valsartan (Entresto). Please interpret accordingly. Plasma 08/30/2024 11:5 1 AM EDT 08/30/2024 2:16 PM EDT Narrative [facility] - 08/30/2024 2:45 PM EDT The presence of high concentrations of biotin may cause falsely lowered BNP results. Biotin interference may be seen if an individual is taking >5 mg biotin per day. Interpret BNP results in the context of the patient's clinical presentation. us Beth Crowe DNP LAB BLOOD ORDERABLES Final Res ult [facility] [address] [place] [address], [facility] * DXA bone density axial skeleton [...] mineral density analysis was performed on a PharmAssistant/AdaptimmuneXA scanner. ARTIFACTS: There is lumbar spondylosis which [...] mineral density analysis was performed on a Eqalix iDXAscanner. ARTIFACTS: There is lumbar spondylosis which [...] - 212 ug/dL 08/20/2024 11:03 AM EDT [facility] % Iron Saturation 17.3 15.0 - 55.0 % 08/20/2024 11:03 AM EDT [facility] TIBC 342 261 - 462 ug/dL 08/20/2024 11:03 AM EDT [facility] Serum 08/20/2024 10:2 6 AM EDT 08/20/2024 10:26 AM EDT Beth Crowe [facility] LAB BLOOD ORDERABLES Final Res ult [facility] [address] [facility] * Ferritin (08/20/2024 10:26 AM EDT) Ferritin 150.2 23.9 - 336.2 ng/mL 08/20/2024 11:17 AM EDT [facility] Serum 08/20/2024 10:2 6 AM EDT 08/20/2024 10:26 AM EDT Beth Crowe [facility] LAB BLOOD ORDERABLES Final Res ult [facility] [address] * Transferrin Receptor, Soluble (08/20/2024 9:59 AM EDT) Transferrin Receptor 14.9 12.2 - 27.3 nmol/L 08/22/2024 6:20 AM EDT [facility] Serum 08/20/2024 9:59 AM EDT 08/22/2024 7:06 AM EDT Narrative [facility] - 08/22/2024 7:06 AM EDT PERFORMED AT: [address] [id number] POWER SUPERINTENDENT: Coral Aguilera MD PHONE: [phone] [facility] ORDERABLES Final Res ult Performing Organization Address [facility] Co de Phone Number [facility] [address] * MRI Cardiac W WO contrast [...] chest CT. Thank you for referring to [facility] Cardiac Magnetic Resonance Imaging. Report Verified by: Goyo Campos MD at 08/08/2024 7:58 AM EDT Narrative 08/08/2024 7:58 AM EDT Exam: MRI CARDIAC W AND WO CONTRAST Comparison: CT chest dated 05/09/2023 Contrast: 15 mL of GADOBUTROL 1 MMOL/ML INTRAVENOUS SYRINGE ([facility]) administered intravenously Indication: atrial mass; [...] fat saturation Scanner Giana: 1.5T Scanner Vendor: PharmAssistant Exam Quality: excellent Findings: QUALITATIVE IMPRESSIONS: Left [...] mL of GADOBUTROL 1 MMOL/ML INTRAVENOUS SYRINGE ([facility])administered intravenously Indication: atrial mass; Atrial [...] fat saturation Scanner Giana: 1.5T Scanner Vendor: GE Exam Quality: excellent Findings: QUALITATIVE IMPRESSIONS: Left [...] chest CT. Thank you for referring to [facility] Cardiac Magnetic Resonance Imaging. Report Verified by: Goyo Campos MD at 08/08/2024 7:58 AM EDT us Genet Cha MD IMG MRI ORDERABLES Final Res ult * POC eGFR (08/01/2024 1:34 PM EDT) [facility] POC [id number] 08/01/2024 1:41 PM EDT HEALTH LAB [...] will be reported as >90mL/min/1.73m2. Reference: Amos Gatica, Desiree M, Jarrod DC, Eliu ND, Suzy CA, Chance LA, et al. A Unifying Approach for GFR Estimation: Recommendations of the NKF-ASN Task Force on Reassessing the inclusion of Race in Diagnosing Kidney Disease. Am J Kidney Dis. 2020. Blood, Arterial 08/01/2024 1 :34 PM EDT 08/01/2024 1:41 PM EDT Genet Cha MD LAB BLOOD ORDERABLES Final R esult [facility] [address] [facility]. [address] * POC Sample Type (08/01/2024 1:34 PM EDT) Pathologist [facility] POC Sample Type Unspecified 08/01/2024 1:41 PM EDT [facility] Blood, Arterial 08/01/2024 1 :34 PM EDT 08/01/2024 1:41 PM EDT Genet Cha MD POINT OF CARE TEST ORDERABLE S Final Result Performing Organization Address [facility] Co de Phone Number [facility] [address] [facility]. [address] * (ABNORMAL) POC hematocrit (08/01/2024 1:34 PM EDT) [facility] POC Hematocrit 37.0(L) 40 - 52 % 08/01/2024 1:41 PM EDT [facility] Blood, Arterial 08/01/2024 1 :34 PM EDT 08/01/2024 1:41 PM EDT Genet Cha MD POINT OF CARE TEST ORDERABLE S Final Result [facility] [address] [facility]. [address] * POC creatinine (08/01/2024 1:34 PM EDT) Pathologist [facility] POC Creatinine 1.06 0.60 - 1.30 mg/dL 08/01/2024 1:41 PM EDT [facility] Blood, Arterial 08/01/2024 1 :34 PM EDT 08/01/2024 1:41 PM EDT Genet Cha MD POINT OF CARE TEST ORDERABLE S Final Result Performing Organization Address [facility] Co de Phone Number [facility] [address] [facility] * (ABNORMAL) POC Hemoglobin (08/01/2024 1:34 PM EDT) [facility] POC Hemoglobin 12.7(L) 14.0 - 18.0 g/dL 08/01/2024 1:41 PM EDT [facility] Blood, Arterial 08/01/2024 1 :34 PM EDT 08/01/2024 1:41 PM EDT Genet Cha MD POINT OF CARE TEST ORDERABLE S Final Result Performing Organization Address [facility] Co de Phone Number [facility] [address] [facility]. [address] * ECHO COMPLETE W/ STRAIN (07/02/2024 10:43 AM EDT) Anatomical Region Laterality Modality Chest Ultrasound 07/02/2024 10:1 7 AM EDT Narrative 07/05/2024 11:12 AM EDT * [facility] - Echocardiology Lab* [address] [place] [address], [place] [address] Transthoracic Echocardiogram Patient: René Cornejo Room: echolab Height: 69in MR Number: [id number] : 1950 Weight: 110lb Account: [id number] Gender: M BP: Study Date: 07/02/2024 Age: 74 BSA: 1.54m^2 Referring physician: Interpreting physician: Ann Ding MD PERFORMING [facility]Ann Ding LICENSED MARRIAGE AND FAMILY THERAPIST Jovana Wright ORDERING Genet Cha MD ATTENDING Genet Cha MD Procedure:TRANSTHORACIC ECHO (TTE) Order: Accession COMPLETE Number:[id number] Indications: Acute on chronic heart failure with [...] ml 21 - 61 51 EF (L) -[id number] % 52 - 72 39 SV 71 [...] Reviewed and confirmed by Ann Ding MD [id number] Procedure Note Ann Ding MD - 07/05/2024 * [facility] - EchocardiologyLab* [address] [place] [address], [place] [address] Transthoracic Echocardiogram Patient: René Cornejo Room: [facility] Height: 69in MR Number: [id number] : 1950 Weight:110lb Account: [id number] Gender: M BP: Study Date: 07/02/2024 Age: 74 BSA:1.54m^2 Referring physician: Interpreting physician: Ann Ding MD PERFORMING [facility] Ding LICENSED MARRIAGE AND FAMILY THERAPIST Jovana Wright ORDERING Genet Cha MD ATTENDING Genet Cha MD Procedure:TRANSTHORACIC ECHO (TTE) Order: Accession COMPLETE Number:[id number] Indications: Acute on chronic heart failure with [...] ml 21 - 61 51 EF (L) -[id number] % 52 - 72 39 SV 71 [...] Reviewed and confirmed by Ann Ding MD [id number] us Genet Cha MD CV ECHO ORDERABLES Final Res ult * TSH (Thyroid Stimulating Hormone) (01/10/2024 1:32 PM EDT) TSH 1.99 0.45 - 4.12 uIU/mL 01/10/2024 2:15 PM EDT [facility] Serum 01/10/2024 1:32 PM EDT 01/10/2024 1:32 PM EDT us Vandana Holden MD LAB BLOOD ORDERABLES Final Resul t [facility] [address] [place] [address], [facility] from Last 3 Months or Most Recently Relevant to Health Maintenance
--- OUTSIDE RECORDS SUMMARY | 2024-09-23 09:38 | XMS_ITS | Encounter Summary ---
Author Organization [facility] Address [address] [place] [address] Care Team Providers Care Barker Peeler Name Role Phone Samaria Price MD Unavailable Jasmin Marshall CNP Unavailable [phone] Megan Tamez RN Unavailable Unavailable Delores BETTS MD, George Primary Care Provide r Vibha Irwin RN Unavailable Unavaila Natalie Gordon RN Unavailable Unavailabl Kelli Rodriguez RN Unavailable Unavail able Junie Aggarwal RN Unavailable Unava ilable Ese Johnson PharmD Unavailable Zaria vailable Carlos Dominguez DO Primary Care Provider [phone] Source Comments This information has been disclosed [...] release of HIV test results or diagnoses. [id number] Reason for Referral * Surgical (Routine) - Closed Specialty Diagnoses / Procedures Referred By Contac t Referred To Contact Radiology Diagnoses HCC (hepatocellular carcinoma) (CMS-HCC) Procedures IR Bx Liver needle perc AMB Referral to Interventional Radiology (BODY IR) [place] BIOPSY LIVER NEEDLE PERCUTANEOUS CHG CT GUIDANCE NEEDLE PLACEMENT CHG SONO GUIDE NEEDLE BIOPSY Samaria Price MD [address] Hematology/[place] [address] Phone: tel: fax: Referral ID Status Reason Start Date Expiration Date Visits Re quested Visits Authorized [id number] Closed 04/15/2022 10/12/2022 1 1 Encounter Details Date Type Department Care Team (Late st Contact Info) Description 04/14/2022 Orders Only [facility] Hematology Oncology at [facility] [address] [place] [address] Samaria Price MD [address] Hematology/[place] [address] HCC (hepatocellular carcinoma) (CMS-HCC) (Primary [...] Description 10/10/2024 12:31 PM EDT Hospital Encounter [facility] ENDOSCOPY [address] [place] [id number] Enrike Mims MD [address] [place] [phone] 10/10/2024 12:31 PM EDT - 10/10/2024 2:01 PM EDT Surgery [facility] ENDOSCOPY [address] [place] [id number] Enrike Mims MD [address] [place] [address] ERCP Scheduled Procedures Name Priority [...] Khanna MD, IR Attending Wendy Bee - Sous Chef Kitchen Manager Procedure and Findings: The procedure was performed [...] Khanna MD, IR Attending Wendy Bee - Sous Chef Kitchen Manager Procedure and Findings: The procedure was performed [...] -Continue planned follow-up with Dr. Rey in [facility]. Approved by Wendy Bee MD on 05/04/2022 [...] documented as of this encounter Care Teams Barker Peeler Relationship Specialty Start Date End Date Leo Estrella III, MD [address] [id number] PCP - General Family Medicine 12/22/21 04/04/24 Carlos Dominguez DO [address], [place] [address] [place] [address] PCP - General Internal Medicine 04/05/24 Samaria Price MD [address] [facility] Hematology/[place] [address] Medical Oncologist [facility] Medical Oncology 10/20/21 Jasmin Marshall GLORY HOLE TENDER [address] [facility] Hematology/[place] [address] Nurse Practitioner [facility] Hematology and Oncology 10/20/21 Megan Tamez, RN Nurse Clinician Medical Oncology 10/20/21 Vibha Irwin, RN Nurse Navigator Gastrointestinal Oncology 01/14/22 3 Natalie Harp, RN Txp Post Coordinator Parts Administrator 07/05/2209/05 Kelli Castillo, RN Txp Post Coordinator 09/06/22 11/21/22 Junie Aggarwal, RN Txp Post Coordinator Parts Administrator 10/14/22 Ese Johnson, PharmD Pharmacist Pharmacist 10/17/22 documented as of this encounter
--- OUTSIDE RECORDS SUMMARY | 2024-09-23 09:38 | XMS_ITS ---
Author Organization [facility] Address [address] [place] [id number] Care Team Providers Care Assistant Golf Course Superintendent Name Role Phone Samaria Price MD Unavailable Jasmin Marshall CNP Unavailable [phone] Megan Tamez RN Unavailable Unavailable Junie Aggarwal RN Unavailable Unava ilable Ese Johnson PharmD Unavailable Zaria vailable Carlos Dominguez DO Primary Care Provider [phone] Transplant Episode Liver Recipient [facility] ([place], [place]) - [facility] Organ Received: Liver Transplanted on 06/28/2022 Marked as Active Follow-up on 06/28/2022 Liver CoordinatorJunie Aggarwal RN Phone: N/A Fax: N/A Email: N/A [place] Organ Diagnosis Organ Primary Contributory Liver Cirrhosis: [...] N/ A N/A Kolton Martinez MD Txp Loin Puller [phone] N/A Enrike Wray RN Txp Pre Coordinator N/A N/A N/A Reji Drake MD Referring Physician N/A N/A N/A Kelechi Bland III, MD Txp Surgeon [phone] N/A Natalie Duron MSW, [employer] Txp Rn Unit Manager N/A N/A N/A Junie Aggarwal RN Txp Post Coordinator N/A N/A N/A Events Post-Transplant Pre-Transplant Admitted: 06/28/2022 Referred: 09/03/2021 Transplanted: 06/28/2022 Evaluation began: 2 Discharged: 08/09/2022 Committee: 02/08/2022 Center waitlisted: 2
== END 2024-09-18 23:59 | disposition home or self-care (01) ==
LOC: LAB.DROPOF 09-23 09:31
PROVIDERS: PCP Internal Medicine; Visit Provider Internal Medicine
DX: N39.0 Urinary tract infection, site not specified (principal)
CPT/HCPCS: 87086; 87088; 87186

== ENCOUNTER 2024-10-17 14:00 | Outpatient (RCR) | payer MEDICARE, SELFPAY ==
--- NOTE | 2024-09-26 07:29 | HMH.RHREAS ---
Rehab Reassessment Rehab OP Re-assessment Start: 09/24/24 15:53 Freq: Status: Active Protocol: Document 09/24/24 16:46 JULIETA (Rec: 09/24/24 17:39 JULIETA [id number]) E-signed By Chapito Silvestre, PT Tinetti Sitting Balance Sitting Balance Steady, safe Arising from Chair Ability to Arise Able, uses arms to help Attempts to Arise Able, requires >1 attempt Standing Balance Immediate Standing Unsteady Balance Standing Balance Unsteady Nudged Response Begins to fall Standing with Eyes Unsteady Closed Turning Step Pattern Turning Discontinuous steps 360 Degrees Stability Turning Unsteady, grabs/staggers 360 Degrees Sitting Down Sitting Down Uses arms or unsteady Gait and Step Initiation of Gait No hesitancy Right Foot Step Does not pass stance ft. Length Right Foot Step Does not clear floor Height Left Foot Step Does pass stance foot Length Left Foot Step Completely clears floor Height Step Description Step Symmetry Step length not equal Step Continuity Stopping or discontinuity Gait Description Path Description Mild/moderate deviation Trunk Description No sway Walking Stance Heels apart Scoring and Interpretation Tinetti Composite 10 Score (points) Interpretation of High risk for falls(< 19) Scores Rehab Re-assessment Subjective Subjective Pt reports that he is 5-10% improved. Pt reports that he has had a bad UTI the last 2 weeks and feels like he lost what progress he has made. Reports that he has been doing his exercises everyday but feels week. Hopeful that he will get his strength back in the next week or so. Pt reports that he is currently unable to do stairs. Pt would like to continue with PT. Objective Objective Notes Tinnetti: 10 (10 on IE) 5xSTS: 23s MMT: - L hip flexion: 2+/5 - L hip abd: 2/5 - L hip add: 2/5 - L knee ext/flexion: 2/5 - L ankle DF: 1+/5 Gait Assessment: - Pt ambulate 26 ft with FWW with chair follow and CGA. Assessment Progress Assessment Slower Than Expected Assessment Notes Pt has undergone one month of skilled PT at this time with an emphasis on LE strengthening, balance, and gait training. Pt has made minimal progress due to a recent illness. Pt with no improvements other than meeting his STG for 5xsts score. Pt would continue to benefit from skilled PT at this time to continue to address his remaining impairments. Patient goals met ST LT Plan Plan Continue as per initial POC Frequency of Therapy 2/week Duration of therapy 4 weeks Time and Billing Re-Eval Time 10 Re-Eval Billing 0 Units Charge for PT No reassessment? PHYSICIAN CERTIFICATION: I certify the specified therapy services for René Cornejo are required, authorized, and reviewed every 30 days.
== END 2024-10-17 23:59 | disposition home or self-care (01) ==
LOC: PT 14:00
PROVIDERS: PCP Internal Medicine; Visit Provider Internal Medicine Gastroenterology
DX: I63.9 Cerebral infarction, unspecified (principal); R29.898 Other symptoms and signs involving the musculoskeletal system
CPT/HCPCS: 97110; 97116; 97530

== ENCOUNTER 2024-11-15 15:00 | Outpatient (RCR) | payer MEDICARE, SELFPAY ==
--- NOTE | 2024-10-25 12:52 | HMH.RHREAS ---
Rehab Reassessment Rehab OP Re-assessment Start: 10/24/24 13:57 Freq: Status: Active Protocol: Document 10/24/24 13:57 JULIETA (Rec: 10/24/24 14:59 JULIETA [id number]) E-signed By Chapito Silvestre, PT Tinetti Sitting Balance Sitting Balance Steady, safe Arising from Chair Ability to Arise Able, uses arms to help Attempts to Arise Able, requires >1 attempt Standing Balance Immediate Standing Steady with support Balance Standing Balance Steady, wide stance Nudged Response Begins to fall Standing with Eyes Unsteady Closed Turning Step Pattern Turning Discontinuous steps 360 Degrees Stability Turning Unsteady, grabs/staggers 360 Degrees Sitting Down Sitting Down Uses arms or unsteady Gait and Step Initiation of Gait Hesitancy, mult. attempts Right Foot Step Does not pass stance ft. Length Right Foot Step Completely clears floor Height Left Foot Step Does not pass stance foot Length Left Foot Step Completely clears floor Height Step Description Step Symmetry Step length not equal Step Continuity Stopping or discontinuity Gait Description Path Description Mild/moderate deviation Trunk Description No sway but posturing Walking Stance Heels apart Scoring and Interpretation Tinetti Composite 10 Score (points) Rehab Re-assessment Subjective Subjective Pt reports that he is approximately 10-15% improved. Pt presents that he has some days where he feels like he is stronger but a lot of days he feels unchanged. Pt reports that he is walking very short distances with the walker at home but continues to use his power chair for the most part at home. Objective Objective Notes Tinnetti: 10 (10 on IE and last RA) 5xSTS: 20s MMT: - L hip flexion: 2+/5 - L hip abd: 2/5 - L hip add: 2/5 - L knee ext/flexion: 2/5 - L ankle DF: 1+/5 Gait Assessment: - Pt ambulate 38ft with FWW with chair follow and CGA. Assessment Progress Assessment No Progress Assessment Notes Pt has undergone 2 months of skilled PT since his initial evaluation, attending 12 PT visits in that time . His PT sessions have consisted of gait training, LE strengthening, balance training and endurance training. Pt has not responded well to PT at this time. He has demonstrated mild improvements in the distance that he is able to walk and a slight improvement in his 5xSTS time since his evaluation. He has not met any new goals since his prior reassessment. Pt would continue to benefit from skilled PT at this time, however, pt was instructed that if he has not made any further progress at his next reassessment, then discharge from PT would be necessary due to lack of progress. PT Patient Goals PT Short Term STG: Patient Goals 1. Increase Strength: Yes: LLE to 2+/5, RLE to 4/5 NOT MET 2. Ambulate 75 ft with AAD, no rest breaks, and no apparent balance deficits. NOT MET 3. 5xSTS in 23s MET 4. 3 steps with HR NOT MET 5. Tinnetti Score >14 NOT MET 6. IND with HEP MET PT Correction Patient LTG: Goals 1. Strength: Yes: L LE to 3/5, RLE to 4+/5 NOT MET 2. Yes: Able to ambulate 200 ft with LRAD and no apparent balance deficits. NOT MET 3. Yes: 5xSTS: 17s NOT MET 4. Yes: Flight of steps with HR NOT MET 5. Tinnetti >18 NOT MET 6. Advanced HEP NOT MET Plan Plan Pt would benefit from continued PT, with the following activities as needed. If patient continues to demonstrate lack of progress, then a discharge from PT will be necessary. Pt would further benefit from standing exercises instead of sitting exercises at this time. Structure sessions, as such: - Walk - Standing balance/exercises - Walk Frequency of Therapy 2/week Duration of Therapy 4 weeks Therapeutic Exercise Yes Including Home Exercise Program Manual Therapy Yes Techniques Neuromuscular Re- Yes education Therapeutic Yes Activities to Return to Previous Functional/Work Level Gait Training Yes ADL/Self Care Yes Education Thermal Modalities Yes Electrical Yes Stimulation Manual Lymphatic Yes Drainage Eval/Re-Eval Yes Time and Billing Re-Eval Time 10 Re-Eval Billing 0 Units Charge for PT No reassessment? PHYSICIAN CERTIFICATION: I certify the specified therapy services for René Cornejo are required, authorized, and reviewed every 30 days.
== END 2024-11-15 23:59 | disposition home or self-care (01) ==
LOC: PT 15:00
PROVIDERS: PCP Internal Medicine; Visit Provider Internal Medicine
DX: I63.9 Cerebral infarction, unspecified (principal); R29.898 Other symptoms and signs involving the musculoskeletal system
CPT/HCPCS: 97110; 97116; 97530

== ENCOUNTER 2024-11-20 16:49 | Outpatient (RCR) | payer MEDICARE, SELFPAY | END 2024-11-20 23:59 | disposition home or self-care (01) | LOC: PT 16:49 | PROVIDERS: PCP Internal Medicine; Visit Provider Internal Medicine Gastroenterology | DX: I63.9 Cerebral infarction, unspecified (principal); R29.898 Other symptoms and signs involving the musculoskeletal system | CPT/HCPCS: 97116; 97530 ==